=== PATIENT | female | born 1945 | race Caucasian/White ===

== ENCOUNTER → 2016-10-18 | Outpatient (CLI) | payer MEDICARE, BC ==
[2016-10-18 13:00] LABS: Basophils # (A) 0.1 k/uL (0-0.2); Basophils % (A) 1 %; CH 32.8; CHCM 33.1; Eosinophils # (A) 0.3 k/uL (0-0.7); Eosinophils % (A) 4 %; HCT 29.9 % (34.0-46.0); HDW 2.06; HGB 9.6 gm/dL (11.4-16.0); Luc # (Auto) 0.17; Luc % (Auto) 2; Lymphocytes # (A) 0.8 k/uL (1.0-4.8); Lymphocytes % (A) 11 %; MCH 32.2 pg (25.0-35.0); MCHC 32.2 g/dL (31.0-37.0); MCV 99.8 fL (80.0-100.0); Mean Platelet Volume 7.5; Monocytes # (A) 0.6 k/uL (0-1.0); Monocytes % (A) 9 %; Neutrophils # (A) 5.4 k/uL (1.3-7.7); Neutrophils % (A) 73 %; RBC 2.99 m/uL (3.80-5.40); RDW 13.6 % (11.5-15.5); WBC 7.3 k/uL (3.8-10.6); WBC (Perox) 8.05
[2016-10-18 13:04] LABS: Amorphous Sediment,Urine Few /hpf; Appearance,Urine Turbid (Clear); Bacteria,Urine Rare /hpf; Bilirubin,Urine Negative (Negative); Glucose,Urine (UA) Negative (Negative); Ketones,Urine Negative (Negative); Leukocyte Esterase,Urine Moderate (Negative); Mucus,Urine Many /hpf; Nitrite,Urine Negative (Negative); PH, Urine 5.5 (5.0-8.0); Particle Count 26119; Protein,Urine Trace (Negative); Specific Gravity,Urine 1.007 (1.001-1.035); Squamous Epithelial Cell,Urine 4 /hpf (0-4); UA Billing (MACRO vs. MICRO) MICRO; Urobilinogen,Urine <2.0 mg/dL (<2.0); WBC,Urine 10 /hpf (0-5)
[2016-10-18 13:11] LABS: Calcium 10.2 mg/dL (8.4-10.2)
== END | disposition home or self-care (01) ==
LOC: LABWHC1 12:32
PROVIDERS: ATTEND Internal Medicine Nephrology
DX: N18.3 Chronic kidney disease, stage 3 (moderate) (principal); R60.9 Edema, unspecified
CPT/HCPCS: 36415; 80048; 81001; 85025; 87086

== ENCOUNTER → 2017-02-18 | Outpatient (CLI) | payer MEDICARE, BC ==
[2017-02-18 14:14] LABS: Basophils % (A) 1 %; CH 32.4; Eosinophils # (A) 0.3 k/uL (0-0.7); Eosinophils % (A) 6 %; HCT 30.7 % (34.0-46.0); HDW 1.93; HGB 9.7 gm/dL (11.4-16.0); Luc # (Auto) 0.17; Luc % (Auto) 4; Lymphocytes # (A) 0.9 k/uL (1.0-4.8); Lymphocytes % (A) 20 %; MCHC 31.4 g/dL (31.0-37.0); MCV 101.9 fL (80.0-100.0); Macrocytosis Slight; Mean Platelet Volume 6.6; Monocytes # (A) 0.4 k/uL (0-1.0); Monocytes % (A) 10 %; Neutrophils # (A) 2.6 k/uL (1.3-7.7); Neutrophils % (A) 60 %; RBC 3.02 m/uL (3.80-5.40); RDW 14.3 % (11.5-15.5); WBC 4.4 k/uL (3.8-10.6); WBC (Perox) 4.82
[2017-02-18 14:15] LABS: Calcium 9.8 mg/dL (8.4-10.2); Magnesium 2.1 mg/dL (1.6-2.3); Phosphorous 4.7 mg/dL (2.5-4.5); Potassium 4.7 mmol/L (3.5-5.1)
[2017-02-18 14:24] LABS: % Iron Saturation 25.7 % (20-50)
[2017-02-18 19:04] LABS: Creatinine,Urine Random 33.4 mg/dL
== END | disposition home or self-care (01) ==
LOC: LABWHC1 11:31
PROVIDERS: ATTEND Internal Medicine Nephrology
DX: I12.9 Hypertensive chronic kidney disease with stage 1 through stage 4 chronic kidney disease, or unspecified chronic kidney disease (principal); N18.3 Chronic kidney disease, stage 3 (moderate); D64.9 Anemia, unspecified; E55.9 Vitamin D deficiency, unspecified
CPT/HCPCS: 36415; 80069; 82306; 82570; 82728; 83540; 83550; 83735; 83970; 84156; 85025

== ENCOUNTER 2017-02-23 13:22 | Inpatient (IN) | payer MEDICARE, BC ==
[2017-02-23] MEDS ORDERED: SODIUM CHLORIDE 0.9% 1,000 ML IV STA (13:39)
[2017-02-23] MEDS ORDERED: ONDANSETRON 4 MG/2 ML VIAL IVP STA (13:39)
[2017-02-23] MEDS ORDERED: HYDROmorphone 1 MG/ML 1 ML SYRINGE IVP STA (14:02)
--- NOTE | 2017-02-23 14:06 | ED ---
GI Bleed HPI - General Source: patient, RN notes reviewed Mode of arrival: wheelchair Limitations: no limitations <Chloe Neff - Last Filed: 02/23/17 16:33> <Jose Henson - Last Filed: 02/23/17 18:15> - General Chief complaint: GI Bleed Stated complaint: Vomiting Time Seen by Provider: 02/23/17 13:36 - History of Present Illness Initial comments: Patient is a 71-year-old female presents emergency room for evaluation of weakness and vomiting blood. Patient states she was in [place] this past weekend. Patient states she went to a restaurant where she had pasta. Patient states shortly after she began developing abdominal discomfort. Patient states all day yesterday she was vomiting up coffee ground emesis. Patient states they drove home last night. Patient states today she is no longer nauseous but is still continuing to experience abdominal discomfort. Patient states she also feels very weak and cold. Patient does state that she has been passing dark tarry stool but she does take iron pills. Patient denies any pain while urinating. Patient denies any blood in urine. Patient states she's been developing bilateral flank pain over the past few days that is worse today. Patient denies headache or dizziness. Patient denies chest pain or shortness of breath. (Chloe Neff) - Related Data Home Medications Medication Instructions Recorded Confirmed ALPRAZolam [ALPRAZolam] 0.125 mg PO Q8HR PRN 03/01/14 02/23/17 Aspirin 81 mg PO DAILY 03/01/14 02/23/17 FLUoxetine HCL [FLUoxetine HCL] 40 mg PO DAILY 03/01/14 02/23/17 Furosemide [Furosemide] 20 mg PO DAILY 03/01/14 02/23/17 Atorvastatin [Lipitor] 10 mg PO HS 02/23/17 02/23/17 Felodipine ER [Plendil] 10 mg PO DAILY 02/23/17 02/23/17 Metoprolol Tartrate [Lopressor] 50 mg PO BID 02/23/17 02/23/17 Allergies Allergy/AdvReac Type Severity Reaction Status Date / Time celecoxib [From Celebrex] Allergy Rash/Hives Verified 02/23/17 13:43 nitrofurantoin Allergy Swelling Verified 02/23/17 13:43 [From Macrobid] nitrofurantoin Allergy Swelling Verified 02/23/17 13:43 macrocrystalline [From Macrobid] sulfamethoxazole Allergy Swelling Verified 02/23/17 13:43 [From Bactrim] trimethoprim [From Bactrim] Allergy Swelling Verified 02/23/17 13:43 Review of Systems ROS Other: All systems not noted in ROS Statement are negative. <Chloe Neff - Last Filed: 02/23/17 16:33> ROS Other: All systems not noted in ROS Statement are negative. <Jose Henson - Last Filed: 02/23/17 18:15> ROS Statement: Those systems with pertinent positive or pertinent negative responses have been documented in the HPI. Past Medical History Past Medical History: Hypertension, Renal Disease Additional Past Medical History / Comment(s): renal failure History of Any Multi-Drug Resistant Organisms: None Reported Past Surgical History: Orthopedic Surgery, Tonsillectomy, Tubal Ligation Additional Past Surgical History / Comment(s): removal ovarybilateral cararact removal with lens implantcervical spinal fusion Past Psychological History: Anxiety Smoking Status: Never smoker Past Alcohol Use History: Occasional Past Drug Use History: None Reported <Chloe Neff - Last Filed: 02/23/17 16:33> General Exam Limitations: no limitations General appearance: alert, in no apparent distress Head exam: Present: atraumatic, normocephalic, normal inspection Eye exam: Present: normal appearance, PERRL, EOMI Pupils: Present: normal accommodation ENT exam: Present: normal exam Neck exam: Present: normal inspection Respiratory exam: Present: normal lung sounds bilaterally. Absent: respiratory distress Cardiovascular Exam: Present: regular rate, normal rhythm, normal heart sounds GI/Abdominal exam: Present: soft, normal bowel sounds. Absent: distended, tenderness, guarding, rebound, rigid Rectal exam: Present: normal inspection, heme (+) stool, black stool Extremities exam: Present: normal inspection Back exam: Present: normal inspection Neurological exam: Present: alert, oriented X3, CN II-XII intact Psychiatric exam: Present: normal affect, normal mood Skin exam: Present: warm, dry, intact, normal color. Absent: rash <Chloe Neff - Last Filed: 02/23/17 16:33> <Jose Henson - Last Filed: 02/23/17 18:15> - General Exam Comments Initial Comments: laying in exam room, pale, no acute distress. (Chloe Neff) Medical Decision Making - Lab Data Result diagrams: 02/23/17 14:15 02/23/17 14:15 - Radiology Data Radiology results: report reviewed, image reviewed <Chloe Neff - Last Filed: 02/23/17 16:33> - Lab Data Result diagrams: 02/23/17 14:15 02/23/17 14:15 <Jose Henson - Last Filed: 02/23/17 18:15> - Medical Decision Making Medical decision-making. The patient is here because she's feeling weak. She' s also had dark stool and coffee ground type material in the vomitus. Patient appears pale. Just 5 days ago her hemoglobin was 9.7 today. Hemoglobin is 5.9 with a hematocrit of 17.5. Patient also has history of chronic renal failure. Stool was guaiac positive. Lungs are clear heart normal murmur, abdomen benign deep palpation no organomegaly. No history of intestinal pathologies such as IBS, Crohn's, ulcerative colitis or diverticulitis. She has had GI workups which were been negative in the past. BUN is elevated 109 with a creatinine 1.7. GFR 36. The patient be rehydrated and she'll receive 2 units of packed RBCs. I discussed the situation with her son-in-law. The patient be admitted to Dr. Freeman on-call for Dr. Baez . The case is also discussed with ICU frothing machine operator Dr. Rutledge. GI consult from Dr. Cabrales has been requested. Dr. Henson (Jose Henson) - Lab Data Lab Results 02/23/17 02/23/17 02/23/17 Range/Units 14:15 14:15 14:15 WBC (3.8-10.6) k/uL RBC (3.80-5.40) m/uL Hgb (11.4-16.0) gm/dL Hct (34.0-46.0) % MCV (80.0-100.0) fL MCH (25.0-35.0) pg MCHC (31.0-37.0) g/dL RDW (11.5-15.5) % Plt Count (150-450) k/uL Neutrophils % % Lymphocytes % % Monocytes % % Eosinophils % % Basophils % % Neutrophils # (1.3-7.7) k/uL Lymphocytes # (1.0-4.8) k/uL Monocytes # (0-1.0) k/uL Eosinophils # (0-0.7) k/uL Basophils # (0-0.2) k/uL PT 10.3 (9.0-12.0) sec INR 1.0 (<1.1) APTT 17.7 L (22.0-30.0) sec Sodium 136 L (137-145) mmol/L Potassium 4.2 (3.5-5.1) mmol/L Chloride 100 (98-107) mmol/L Carbon Dioxide 24 (22-30) mmol/L Anion Gap 12 mmol/L BUN 109 H* (7-17) mg/dL Creatinine 1.70 H (0.52-1.04) mg/dL Est GFR (MDRD) Af Amer 36 (>60 ml/min/1.73 sqM) Est GFR (MDRD) Non-Af 29 (>60 ml/min/1.73 sqM) Glucose 121 H (74-99) mg/dL Plasma Lactic Acid Omar (0.7-2.0) mmol/L Calcium 9.5 (8.4-10.2) mg/dL Total Bilirubin 0.3 (0.2-1.3) mg/dL AST 25 (14-36) U/L ALT 24 (9-52) U/L Alkaline Phosphatase 43 (38-126) U/L Total Creatine Kinase <20 L (30-135) U/L CK-MB (CK-2) <0.2 (0.0-2.4) ng/mL CK-MB (CK-2) Rel Index Troponin I <0.012 (0.000-0.034) ng/mL Total Protein 6.0 L (6.3-8.2) g/dL Albumin 3.4 L (3.5-5.0) g/dL Amylase 114 H (30-110) U/L Lipase 422 H (23-300) U/L Stool Occult Blood (Negative) Blood Type Blood Type Recheck Antibody Screen Crossmatch Spec Expiration Date 02/23/17 02/23/17 02/23/17 Range/Units 14:15 14:15 14:15 WBC 5.2 (3.8-10.6) k/uL RBC 1.78 L (3.80-5.40) m/uL Hgb 5.9 L* D (11.4-16.0) gm/dL Hct 17.5 L* (34.0-46.0) % MCV 98.3 (80.0-100.0) fL MCH 33.0 (25.0-35.0) pg MCHC 33.5 (31.0-37.0) g/dL RDW 14.6 (11.5-15.5) % Plt Count 288 (150-450) k/uL Neutrophils % 70 % Lymphocytes % 17 % Monocytes % 7 % Eosinophils % 3 % Basophils % 1 % Neutrophils # 3.6 (1.3-7.7) k/uL Lymphocytes # 0.9 L (1.0-4.8) k/uL Monocytes # 0.4 (0-1.0) k/uL Eosinophils # 0.2 (0-0.7) k/uL Basophils # 0.0 (0-0.2) k/uL PT (9.0-12.0) sec INR (<1.1) APTT (22.0-30.0) sec Sodium (137-145) mmol/L Potassium (3.5-5.1) mmol/L Chloride (98-107) mmol/L Carbon Dioxide (22-30) mmol/L Anion Gap mmol/L BUN (7-17) mg/dL Creatinine (0.52-1.04) mg/dL Est GFR (MDRD) Af Amer (>60 ml/min/1.73 sqM) Est GFR (MDRD) Non-Af (>60 ml/min/1.73 sqM) Glucose (74-99) mg/dL Plasma Lactic Acid Omar 0.9 (0.7-2.0) mmol/L Calcium (8.4-10.2) mg/dL Total Bilirubin (0.2-1.3) mg/dL AST (14-36) U/L ALT (9-52) U/L Alkaline Phosphatase (38-126) U/L Total Creatine Kinase (30-135) U/L CK-MB (CK-2) (0.0-2.4) ng/mL CK-MB (CK-2) Rel Index Troponin I (0.000-0.034) ng/mL Total Protein (6.3-8.2) g/dL Albumin (3.5-5.0) g/dL Amylase (30-110) U/L Lipase (23-300) U/L Stool Occult Blood Positive H (Negative) Blood Type Blood Type Recheck Antibody Screen Crossmatch Spec Expiration Date 02/23/17 Range/Units 15:00 WBC (3.8-10.6) k/uL RBC (3.80-5.40) m/uL Hgb (11.4-16.0) gm/dL Hct (34.0-46.0) % MCV (80.0-100.0) fL MCH (25.0-35.0) pg MCHC (31.0-37.0) g/dL RDW (11.5-15.5) % Plt Count (150-450) k/uL Neutrophils % % Lymphocytes % % Monocytes % % Eosinophils % % Basophils % % Neutrophils # (1.3-7.7) k/uL Lymphocytes # (1.0-4.8) k/uL Monocytes # (0-1.0) k/uL Eosinophils # (0-0.7) k/uL Basophils # (0-0.2) k/uL PT (9.0-12.0) sec INR (<1.1) APTT (22.0-30.0) sec Sodium (137-145) mmol/L Potassium (3.5-5.1) mmol/L Chloride (98-107) mmol/L Carbon Dioxide (22-30) mmol/L Anion Gap mmol/L BUN (7-17) mg/dL Creatinine (0.52-1.04) mg/dL Est GFR (MDRD) Af Amer (>60 ml/min/1.73 sqM) Est GFR (MDRD) Non-Af (>60 ml/min/1.73 sqM) Glucose (74-99) mg/dL Plasma Lactic Acid Omar (0.7-2.0) mmol/L Calcium (8.4-10.2) mg/dL Total Bilirubin (0.2-1.3) mg/dL AST (14-36) U/L ALT (9-52) U/L Alkaline Phosphatase (38-126) U/L Total Creatine Kinase (30-135) U/L CK-MB (CK-2) (0.0-2.4) ng/mL CK-MB (CK-2) Rel Index Troponin I (0.000-0.034) ng/mL Total Protein (6.3-8.2) g/dL Albumin (3.5-5.0) g/dL Amylase (30-110) U/L Lipase (23-300) U/L Stool Occult Blood (Negative) Blood Type O Positive Blood Type Recheck No Antibody Screen NEGATIVE Crossmatch See Detail Spec Expiration Date 02/26/2017 - 229902/23/17 15:59 Normal sinus rhythm, ventricular rate 77 bpm, MS interval 156 ms, QRS duration 94 ms, QT/QTC 414/468 ms (Chloe Neff) Disposition Decision Date: 02/23/17 <Chloe Neff - Last Filed: 02/23/17 16:33> <Jose Henson - Last Filed: 02/23/17 18:15> Clinical Impression: Anemia, Dehydration, CKD (chronic kidney disease) Disposition: ADMITTED IP TO THIS [facility] Condition: Serious
[2017-02-23 14:39] LABS: Basophils % (A) 1 %; CH 32.7; CHCM 33.4; Eosinophils # (A) 0.2 k/uL (0-0.7); Eosinophils % (A) 3 %; HDW 2.04; Luc # (Auto) 0.13; Luc % (Auto) 3; Lymphocytes # (A) 0.9 k/uL (1.0-4.8); Lymphocytes % (A) 17 %; MCHC 33.5 g/dL (31.0-37.0); MCV 98.3 fL (80.0-100.0); Mean Platelet Volume 6.6; Monocytes # (A) 0.4 k/uL (0-1.0); Monocytes % (A) 7 %; Neutrophils # (A) 3.6 k/uL (1.3-7.7); Neutrophils % (A) 70 %; RBC 1.78 m/uL (3.80-5.40); RDW 14.6 % (11.5-15.5); WBC 5.2 k/uL (3.8-10.6); WBC (Perox) 5.28
[2017-02-23 14:48] LABS: HGB 5.9 gm/dL (11.4-16.0)
[2017-02-23 14:49] LABS: HCT 17.5 % (34.0-46.0)
[2017-02-23 14:51] LABS: Calcium 9.5 mg/dL (8.4-10.2); Potassium 4.2 mmol/L (3.5-5.1); Total Bilirubin 0.3 mg/dL (0.2-1.3)
[2017-02-23 15:03] LABS: Creatine Kinase <20 U/L (30-135)
[2017-02-23] MEDS ORDERED: SODIUM CHLORIDE 0.9% 1,000 ML IV ONE (15:03)
[2017-02-23 15:09] LABS: Partial Thromboplastin Time 17.7 sec (22.0-30.0); Prothrombin Time 10.3 sec (9.0-12.0)
[2017-02-23 15:16] LABS: Creatine Kinase MB <0.2 ng/mL (0.0-2.4); Troponin I <0.012 ng/mL (0.000-0.034)
[2017-02-23] MEDS ORDERED: NALOXONE 0.4 MG/ML 1 ML VIAL IV PRN (15:17)
[2017-02-23] MEDS ORDERED: HYDROmorphone 1 MG/ML 1 ML SYRINGE IVP PRN (15:17)
--- NOTE | 2017-02-23 15:43 | XR ---
EXAMINATION TYPE: XR abdomen 2V DATE OF EXAM: 02/23/2017 3:32 PM COMPARISON: NONE HISTORY: Abdominal pain TECHNIQUE: 2 views FINDINGS: There is no sign of intestinal obstruction or pneumoperitoneum. Fecal pattern is normal. Reshma ng bases are clear. There are no pathologic ossifications over the kidneys. IMPRESSION: Nonacute abdomen.
[2017-02-23] MEDS: SODIUM CHLORIDE 0.9% 1,000 ML IV SCH (16:00)
[2017-02-23 20:16] VITALS: BMI 21.2
[2017-02-23] MEDS: PANTOPRAZOLE 40 MG/10 ML VIAL IVP SCH (21:05)
[2017-02-23 21:37] LABS: Basophils % (A) 1 %; CH 31.4; CHCM 34.4; Eosinophils # (A) 0.1 k/uL (0-0.7); Eosinophils % (A) 2 %; HCT 25.1 % (34.0-46.0); HDW 2.65; Luc % (Auto) 3; Lymphocytes # (A) 1.5 k/uL (1.0-4.8); Lymphocytes % (A) 24 %; MCH 31.5 pg (25.0-35.0); MCHC 34.3 g/dL (31.0-37.0); Mean Platelet Volume 7.4; Monocytes # (A) 0.6 k/uL (0-1.0); Monocytes % (A) 9 %; Neutrophils # (A) 3.7 k/uL (1.3-7.7); Neutrophils % (A) 61 %; RBC 2.73 m/uL (3.80-5.40); RDW 15.5 % (11.5-15.5); WBC 6.1 k/uL (3.8-10.6); WBC (Perox) 5.83
[2017-02-23 21:39] LABS: HGB 8.6 gm/dL (11.4-16.0); MCV 91.9 fL (80.0-100.0)
[2017-02-23] MEDS: ALPRAZolam 0.5 MG TAB PO PRN (23:04)
[2017-02-24 04:51] LABS: INR 1.1 (<1.1); Prothrombin Time 10.7 sec (9.0-12.0)
[2017-02-24 04:56] LABS: Calcium 8.6 mg/dL (8.4-10.2); Magnesium 2.1 mg/dL (1.6-2.3); Phosphorous 4.1 mg/dL (2.5-4.5); Potassium 3.7 mmol/L (3.5-5.1)
[2017-02-24] MEDS ORDERED: Potassium Replacement Protocol 1 EACH MISC MISCELLANE PRN (05:15)
[2017-02-24] MEDS: POTASSIUM CHLORIDE 10 MEQ, LIDOCAINE 2% INJ 10 MG in SODIUM CHLORIDE 0.9% 100 ML IV SCH ×2 (06:14→08:30)
[2017-02-24] MEDS: SODIUM CHLORIDE 0.9% 1,000 ML IV SCH ×3 (06:14→21:11)
[2017-02-24 06:15] LABS: Anisocytosis Slight; Basophils % (A) 1 %; CH 30.9; Eosinophils # (A) 0.1 k/uL (0-0.7); Eosinophils % (A) 3 %; HCT 24.8 % (34.0-46.0); HDW 2.78; HGB 8.2 gm/dL (11.4-16.0); Luc # (Auto) 0.14; Luc % (Auto) 3; Lymphocytes # (A) 1.4 k/uL (1.0-4.8); Lymphocytes % (A) 30 %; MCH 31.1 pg (25.0-35.0); MCHC 32.9 g/dL (31.0-37.0); MCV 94.4 fL (80.0-100.0); Mean Platelet Volume 6.8; Monocytes # (A) 0.4 k/uL (0-1.0); Monocytes % (A) 10 %; Neutrophils # (A) 2.5 k/uL (1.3-7.7); Neutrophils % (A) 54 %; RBC 2.63 m/uL (3.80-5.40); RDW 16.1 % (11.5-15.5); WBC 4.6 k/uL (3.8-10.6); WBC (Perox) 4.71
[2017-02-24] MEDS: PANTOPRAZOLE 40 MG/10 ML VIAL IVP SCH ×2 (08:35→20:34)
[2017-02-24] MEDS ORDERED: PANTOPRAZOLE 40 MG/10 ML VIAL IV SCH (09:00)
[2017-02-24] MEDS ORDERED: ONDANSETRON 4 MG/2 ML VIAL IVP PRN (09:29)
--- NOTE | 2017-02-24 09:31 | P.CNPUL ---
History of Present Illness Consult date: 02/24/17 Chief complaint: GIB History of present illness: 71-year-old female patient, presented to the hospital because of GI bleeding. The patient was attending her granddaughter's graduation and his [place] and after dinner she started having increased nausea and coffee-ground emesis on multiple occasions. The patient managed to get back to [place] and she was hospitalized yesterday with a profoundly low hemoglobin of 5.9. She was given a total of 2 units of packed RBC and subsequent hemoglobin from today is 8.2. She is currently in the intensive care unit. She was given IV fluids and creatinine came from a baseline of 1.7 down to 1.3. This patient has history of iron deficiency. She hasn't been investigated in the past with colonoscopy and she was found to have mild diverticulosis and the colonoscopy was done in 2013. She has not had any EGD that she can recall. No reported history of aspirin or nonsteroidal anti-inflammatory medication intake. The patient has stage III chronic renal failure that she avoids taking nonsteroidal anti-inflammatory medications. No chronic liver disease. She drinks approximately 15 drinks on a weekly basis including a combination of wine and vodka. She is producing adequate amount of urine output. No nausea this morning. No abdominal pain. She was expressing some cramping and epigastric area. No history of any esophageal tear. The lipase was 422. The amylase was 114. The rest of the liver function tests were within normal limits. The stool for occult blood was slightly positive. She is resting comfortably in bed. She is hemodynamically stable at this point. Afebrile. Coagulation profile is also within normal limits. Review of Systems A 12 point review of system was done and the positive findings were mentioned above in history of present illness. No change in mental status. No respiratory distress. No other complaints other than thinks most above in the history of present illness. All systems: negative Constitutional: Denies chills, Denies fever Eyes: denies blurred vision, denies pain Ears, nose, mouth and throat: Denies headache, Denies sore throat Cardiovascular: Denies chest pain, Denies shortness of breath Respiratory: Denies cough Gastrointestinal: Reports coffee ground emesis, Reports nausea, Reports vomiting Genitourinary: Denies dysuria, Denies hematuria Musculoskeletal: Denies myalgias Integumentary: Denies pruritus, Denies rash Neurological: Denies numbness, Denies weakness Psychiatric: Denies anxiety, Denies depression Endocrine: Denies fatigue, Denies weight change Past Medical History Past Medical History: Eye Disorder, Hypertension, Renal Disease Additional Past Medical History / Comment(s): Chronic anemia, iron deficiency, bilateral cataract repair, diverticular disease, CRF stage 3, hypertension, hyperlipidemia, generalized anxiety disorder History of Any Multi-Drug Resistant Organisms: None Reported Past Surgical History: Orthopedic Surgery, Tonsillectomy, Tubal Ligation Additional Past Surgical History / Comment(s): removal ovary, bilateral cararact removal with lens implant; cervical spinal fusion Past Anesthesia/Blood Transfusion Reactions: No Reported Reaction Past Psychological History: Anxiety Additional Psychological History / Comment(s): takes prozac and xanax for anxiety Smoking Status: Never smoker Past Alcohol Use History: Occasional Additional Past Alcohol Use History / Comment(s): one drink on occasion during week, several on occasions on the weekend, not consistent. Past Drug Use History: None Reported - Past Family History Mother Family Medical History: Osteoarthritis (OA) Sister(s) Family Medical History: Cancer Additional Family Medical History / Comment(s): breast cancer Medications and Allergies Home Medications Medication Instructions Recorded Confirmed Type ALPRAZolam [ALPRAZolam] 0.125 mg PO Q8HR PRN 03/01/14 02/23/17 History Aspirin 81 mg PO DAILY 03/01/14 02/23/17 History FLUoxetine HCL [FLUoxetine HCL] 40 mg PO DAILY 03/01/14 02/23/17 History Furosemide [Furosemide] 20 mg PO DAILY 03/01/14 02/23/17 History Atorvastatin [Lipitor] 10 mg PO HS 02/23/17 02/23/17 History Felodipine ER [Plendil] 10 mg PO DAILY 02/23/17 02/23/17 History Metoprolol Tartrate [Lopressor] 50 mg PO BID 02/23/17 02/23/17 History Allergies Allergy/AdvReac Type Severity Reaction Status Date / Time celecoxib [From Celebrex] Allergy Rash/Hives Verified 02/23/17 13:43 nitrofurantoin Allergy Swelling Verified 02/23/17 13:43 [From Macrobid] nitrofurantoin Allergy Swelling Verified 02/23/17 13:43 macrocrystalline [From Macrobid] sulfamethoxazole Allergy Swelling Verified 02/23/17 13:43 [From Bactrim] trimethoprim [From Bactrim] Allergy Swelling Verified 02/23/17 13:43 Physical Exam Vitals: Vital Signs Temp Pulse Pulse Resp BP BP Pulse Ox 02/24/17 08:00 98.4 F 86 16 131/64 96 02/24/17 07:00 85 12 116/59 96 02/24/17 06:00 87 14 119/61 96 02/24/17 05:00 83 21 126/64 96 02/24/17 04:00 98.0 F 82 12 128/69 97 02/24/17 03:00 79 16 123/63 95 02/24/17 02:00 84 12 113/59 97 02/24/17 01:00 84 13 112/56 96 02/24/17 00:10 86 16 112/57 95 02/24/17 00:00 98.0 F 87 12 117/52 95 02/23/17 23:00 87 18 127/63 98 02/23/17 22:00 83 22 126/62 97 02/23/17 21:00 82 19 120/58 99 02/23/17 20:39 98.0 F 82 16 119/58 100 02/23/17 20:10 83 18 123/60 99 02/23/17 20:00 98.1 F 85 23 119/56 100 02/23/17 19:50 87 26 H 117/56 99 02/23/17 19:40 82 17 117/60 100 02/23/17 19:34 98.1 F 84 16 117/56 100 02/23/17 19:30 84 34 H 113/55 99 02/23/17 19:20 83 20 113/56 98 02/23/17 19:10 82 29 H 116/61 99 02/23/17 19:04 97.9 F 97 16 116/61 97 02/23/17 19:00 97.9 F 81 18 112/59 98 02/23/17 18:54 98.0 F 83 17 112/59 98 02/23/17 18:50 83 16 135/65 98 02/23/17 18:41 98.0 F 86 20 135/65 99 02/23/17 18:10 98.2 F 81 18 132/62 02/23/17 17:23 98.5 F 78 18 128/58 99 02/23/17 17:10 98.5 F 79 18 120/58 02/23/17 17:05 98.0 F 83 16 123/60 100 02/23/17 16:45 98.6 F 78 18 128/59 02/23/17 16:15 98.4 F 77 18 133/59 Intake and Output 02/23/17 02/24/17 02/24/17 22:59 06:59 14:59 Intake Total 1710 800 400 Output Total 1400 600 Balance 310 200 400 Intake: Intake, IV Titration 300 800 400 Amount Potassium Chloride 10 meq 200 Lidocaine 2% Inj 10 mg In Sodium Chloride 0.9% 100 ml @ 100 mls/hr IV Q1HR ROSANA Rx#:[id number] Sodium Chloride 0.9% 1, 300 800 200 000 ml @ 100 mls/hr IV . Q10H ROSANA Rx#:[id number] Oral 480 0 Blood Product 930 Rc As-1 Unit 310 [id number] Rc As-1 Unit 310 [id number] Output: Urine 1400 600 Other: Voiding Method Toilet Toilet Bedside Commode Bedside Commode # Voids 1 1 # Bowel Movements 0 0 # [place] 0 Weight 52.6 kg 52.7 kg The patient appeared well nourished and normally developed. Vital signs as documented. Head exam is unremarkable. No scleral icterus or corneal arcus noted. Neck is without jugular venous distension, thyromegaly, or carotid bruits. Carotid upstrokes are brisk bilaterally. Lungs are clear to auscultation and percussion. Cardiac exam reveals the PMI to be normally sized and situated. Rhythm is regular. First and second heart sounds normal. No murmurs, rubs or gallops. Abdominal exam reveals normal bowel sounds, no masses , no organomegaly and no aortic enlargement. Extremities are nonedematous and both femoral and pedal pulses are normal. Results - Laboratory Findings CBC and BMP: 02/24/17 03:49 02/24/17 03:49 PT/INR, D-dimer PT 10.7 sec (9.0-12.0) 02/24/17 03:49 INR 1.1 (<1.1) 02/24/17 03:49 Abnormal lab findings: Abnormal Labs 02/23/17 02/24/17 02/24/17 21:22 03:49 03:49 RBC 2.73 L 2.63 L Hgb 8.6 L D 8.2 L Hct 25.1 L 24.8 L RDW 16.1 H Chloride 109 H Carbon Dioxide 20 L BUN 68 H Creatinine 1.30 H Assessment and Plan Plan: Assessment 1 upper GI bleeding. Remote alcoholic gastritis. Rule out peptic ulcer disease. Coagulation profile is within normal limits and the patient has not had any further episodes of bleeding since yesterday. 2 profound anemia with hemoglobin of 5.9 secondary to above, improved with 2 units of packed RBC transfusion 3 acute kidney injury on top of stage III chronic renal failure, improving and the creatinine is down to 1.3 4 intravascular depletion, improved with fluid resuscitation 5 stage III chronic kidney failure 6 hypertension 7 hyperlipidemia 8 mild diverticulosis based on the previous colonoscopies thousand and 14 9 alcohol ingestion in excess of 15 drinks on a weekly basis 10 mild component of pancreatitis, without any significant abdominal pain. Liver function tests are within normal limits Plan Keep the patient nothing by mouth. Continue fluid resuscitation. IV Protonix. IV Zofran for nausea. EGD today by gastroenterology. Ultrasound of the abdomen for evaluation of pancreatitis. Monitor lipase and amylase. Monitor hemoglobin. We'll continue to follow.
[2017-02-24 10:42] LABS: Appearance,Urine Clear (Clear); Bacteria,Urine Rare /hpf; Bilirubin,Urine Negative (Negative); Glucose,Urine (UA) Negative (Negative); Ketones,Urine Trace (Negative); Leukocyte Esterase,Urine Moderate (Negative); Mucus,Urine Rare /hpf; Nitrite,Urine Negative (Negative); Particle Count 1667; Protein,Urine Negative (Negative); RBC,Urine <1 /hpf (0-5); Specific Gravity,Urine 1.008 (1.001-1.035); Squamous Epithelial Cell,Urine 1 /hpf (0-4); UA Billing (MACRO vs. MICRO) MICRO; Urobilinogen,Urine <2.0 mg/dL (<2.0); WBC,Urine 15 /hpf (0-5)
[2017-02-24 11:23] LABS: Amylase 105 U/L (30-110)
--- NOTE | 2017-02-24 11:59 | US ---
EXAMINATION TYPE: US abdomen complete DATE OF EXAM: 02/24/2017 10:52 AM COMPARISON: NONE CLINICAL HISTORY: 71-year-old female with pancreatitis. Nausea/vomiting, CKD. TECHNIQUE: Multiple sonographic images of the abdomen were obtained. FINDINGS: GLEASON GEAR GENERATOR NOTES: Technical limitations due to large amount of overlying bowel content Liver Length: 9.8 cm Gallbladder Wall: 0.3 cm CBD: 0.2 cm Spleen: 7.8 cm Right Kidney: 9.9 x 4.9 x 3.8 cm Left Kidney: 10.5 x 4.6 x 4.2 cm Pancreas: limited evaluation due to overlying bowel, tail obscured. The pancreatic body appears hypo echoic and heterogeneous. Liver: Limited intercostal views show no gross abnormality. Gallbladder: There is an echogenic is 4 mm focus seen at the gallbladder neck region when the patien t is supine. There is no abnormal gallbladder distention, wall thickening, or pericholecystic fluid. Evidence for sonographic Soto's sign: no CBD: appears wnl Spleen: visualized portions appear wnl Right Kidney: No hydronephrosis. 1.1 cm cyst in the upper pole. Left Kidney: No hydronephrosis. 7 mm hypoechoic area at the lower pole. Suspected cyst with internal echoes likely artifactual. Upper IVC: wnl Abd Aorta: Atherosclerotic calcifications. IMPRESSION: 1. Visualized portions of the pancreatic body appear hypoechoic and heterogeneous. This may relate to inflammatory changes of the patient's reported pancreatitis. After successful management, recommend follow-up CT to exclude a pancreatic mass. 2. A 4 mm echogenic focus at the gallbladder neck suspected to represent a calculus. No ancillary fin dings of acute cholecystitis at this time. Follow-up if new right upper quadrant pain develops.
--- NOTE | 2017-02-24 12:57 | P.HPIM ---
History of Present Illness H&P Date: 02/24/17 Chief Complaint: Acute blood loss anemia/GI bleed This is a 71-year-old female one of Dr. Baez with a previous medical history significant for hypertension and hypertensive cardiovascular disease with left ventricular hypertrophy, history of chronic kidney disease stage III, chronic iron deficiency anemia, osteoporosis, osteoarthritis, hypoglycemia, has been under the care of herself [place] as well as nephrology at [facility], patient went to attend a graduation alliance party for her granddaughter in [place], [place], patient went for dinner and after that she developed to have a significant amount pain associated with nausea and vomiting she had 2 episode of coffee-ground emesis, she managed to get back to [place] and she stated hold for another few hours before she came to the ER last night where she was found to have a hemoglobin of 5.9, patient was admitted to the intensive care unit, she was started on 3 units of packed red blood cells, her hemoglobin currently is a benign, she was seen by Dr. Deras, she will be seen in consultation by [facility] for EGD. Review of Systems Constitutional: Reports fatigue, Reports malaise, Reports weakness, Reports weight loss, Denies chills, Denies chronic headaches, Denies chronic pain, Denies fever, Denies lethargy Eyes: denies blurred vision, denies bulging eye, denies decreased vision Ears: deny: decreased hearing Ears, nose, mouth and throat: Denies dysphagia, Denies neck lump, Denies swelling in throat, Denies sore throat Cardiovascular: Reports dyspnea on exertion, Reports high blood pressure, Denies chest pain, Denies irregular heart beat, Denies paroxysmal nocturnal dyspnea, Denies phlebitis, Denies rapid heart beat, Denies shortness of breath, Denies syncope Respiratory: Denies congestion, Denies cough, Denies cough with sputum, Denies home oxygen, Denies sleep apnea, Denies snoring, Denies wheezing Gastrointestinal: Reports abdominal pain, Reports coffee ground emesis, Reports dyspepsia, Reports heartburn, Reports indigestion, Reports loss of appetite, Reports melena, Reports nausea, Reports vomiting, Denies belching, Denies BRBPR , Denies change in bowel habits, Denies jaundice, Denies lactose intolerance Menstruation: Reports postmenopausal Musculoskeletal: Denies myalgias Musculoskeletal: absent: ankle pain, ankle stiffness, ankle swelling, elbow pain , elbow stiffness, elbow swelling, foot pain, foot stiffness, foot swelling, hand pain, hand stiffness, hand swelling, hip pain, hip stiffness, hip swelling , knee pain, knee stiffness, knee swelling, shoulder pain, shoulder stiffness, shoulder swelling, wrist pain, wrist stiffness, wrist swelling Integumentary: Denies pruritus, Denies rash Neurological: Denies numbness, Denies weakness Psychiatric: Denies anxiety, Denies depression Endocrine: Denies fatigue, Denies weight change Past Medical History Past Medical History: Eye Disorder, GI Bleed, Hyperlipidemia, Hypertension, Musculoskeletal Disorder, Osteoarthritis (OA), Renal Disease Additional Past Medical History / Comment(s): Chronic anemia, iron deficiency, chronic kidney disease stage III, diverticular disease, hyperlipidemia, osteoarthritis, osteoporosis, hypoglycemia, gout, chronic alcohol use and dependence. History of Any Multi-Drug Resistant Organisms: None Reported Past Surgical History: Orthopedic Surgery, Tonsillectomy, Tubal Ligation Additional Past Surgical History / Comment(s): removal ovary, bilateral cararact removal with lens implant; cervical spinal fusion Past Anesthesia/Blood Transfusion Reactions: No Reported Reaction Past Psychological History: Anxiety Additional Psychological History / Comment(s): takes prozac and xanax for anxiety Smoking Status: Never smoker Past Alcohol Use History: Heavy (Patient has 15 drinks on a weekly basis. Including vodka and wine.) Additional Past Alcohol Use History / Comment(s): one drink on occasion during week, several on occasions on the weekend, not consistent. Past Drug Use History: None Reported - Past Family History Mother Family Medical History: Osteoarthritis (OA) (Mother at age of 88 had a history of osteoarthritis .) Sister(s) Family Medical History: Cancer (Patient has a sister who is a survivor of breast cancer and a half-sister with no major medical problems.) Additional Family Medical History / Comment(s): breast cancer Father Family Medical History: No Reported History (Father at age of 92 from old age and he was a out of the [facility]) Brother(s) Family Medical History: Osteoarthritis (OA) (Patient has 2 brothers one of them in the ECF from severe osteoarthritis, and 2 half-brothers.) Daughter(s) Family Medical History: No Reported History (Patient has a daughter no major medical problems.) Son(s) Family Medical History: No Reported History (Patient has a son no major medical problems.) Medications and Allergies Home Medications Medication Instructions Recorded Confirmed Type ALPRAZolam [ALPRAZolam] 0.125 mg PO Q8HR PRN 03/01/14 02/23/17 History Aspirin 81 mg PO DAILY 03/01/14 02/23/17 History FLUoxetine HCL [FLUoxetine HCL] 40 mg PO DAILY 03/01/14 02/23/17 History Furosemide [Furosemide] 20 mg PO DAILY 03/01/14 02/23/17 History Atorvastatin [Lipitor] 10 mg PO HS 02/23/17 02/23/17 History Felodipine ER [Plendil] 10 mg PO DAILY 02/23/17 02/23/17 History Metoprolol Tartrate [Lopressor] 50 mg PO BID 02/23/17 02/23/17 History Ferrous Sulfate [Feosol] 325 mg PO DAILY 02/24/17 02/24/17 History Magnesium Oxide [Mag-Ox] 250 mg PO DAILY 02/24/17 02/24/17 History Allergies Allergy/AdvReac Type Severity Reaction Status Date / Time celecoxib [From Celebrex] Allergy Rash/Hives Verified 02/23/17 13:43 nitrofurantoin Allergy Swelling Verified 02/23/17 13:43 [From Macrobid] nitrofurantoin Allergy Swelling Verified 02/23/17 13:43 macrocrystalline [From Macrobid] sulfamethoxazole Allergy Swelling Verified 02/23/17 13:43 [From Bactrim] trimethoprim [From Bactrim] Allergy Swelling Verified 02/23/17 13:43 Physical Exam Vitals: Vital Signs Temp Pulse Pulse Resp BP BP Pulse Ox 02/24/17 08:00 98.4 F 86 16 131/64 96 02/24/17 07:00 85 12 116/59 96 02/24/17 06:00 87 14 119/61 96 02/24/17 05:00 83 21 126/64 96 02/24/17 04:00 98.0 F 82 12 128/69 97 02/24/17 03:00 79 16 123/63 95 02/24/17 02:00 84 12 113/59 97 02/24/17 01:00 84 13 112/56 96 02/24/17 00:10 86 16 112/57 95 02/24/17 00:00 98.0 F 87 12 117/52 95 02/23/17 23:00 87 18 127/63 98 02/23/17 22:00 83 22 126/62 97 02/23/17 21:00 82 19 120/58 99 02/23/17 20:39 98.0 F 82 16 119/58 100 02/23/17 20:10 83 18 123/60 99 02/23/17 20:00 98.1 F 85 23 119/56 100 02/23/17 19:50 87 26 H 117/56 99 02/23/17 19:40 82 17 117/60 100 02/23/17 19:34 98.1 F 84 16 117/56 100 02/23/17 19:30 84 34 H 113/55 99 02/23/17 19:20 83 20 113/56 98 02/23/17 19:10 82 29 H 116/61 99 02/23/17 19:04 97.9 F 97 16 116/61 97 02/23/17 19:00 97.9 F 81 18 112/59 98 02/23/17 18:54 98.0 F 83 17 112/59 98 02/23/17 18:50 83 16 135/65 98 02/23/17 18:41 98.0 F 86 20 135/65 99 02/23/17 18:10 98.2 F 81 18 132/62 02/23/17 17:23 98.5 F 78 18 128/58 99 02/23/17 17:10 98.5 F 79 18 120/58 02/23/17 17:05 98.0 F 83 16 123/60 100 02/23/17 16:45 98.6 F 78 18 128/59 02/23/17 16:15 98.4 F 77 18 133/59 Intake and Output 02/23/17 02/24/17 02/24/17 22:59 06:59 14:59 Intake Total 1710 800 400 Output Total 1400 600 Balance 310 200 400 Intake: Intake, IV Titration 300 800 400 Amount Potassium Chloride 10 meq 200 Lidocaine 2% Inj 10 mg In Sodium Chloride 0.9% 100 ml @ 100 mls/hr IV Q1HR [facility] Rx#:[id number] Sodium Chloride 0.9% 1, 300 800 200 000 ml @ 100 mls/hr IV . Q10H [facility] Rx#:[id number] Oral 480 0 Blood Product 930 Rc As-1 Unit 310 [id number] Rc As-1 Unit 310 [id number] Output: Urine 1400 600 Other: Voiding Method Toilet Toilet Bedside Commode Bedside Commode # Voids 1 1 # Bowel Movements 0 0 # Em[place] 0 Weight 52.6 kg 52.7 kg - Constitutional General appearance: mild distress - EENT Eyes: anicteric sclerae, EOMI, PERRLA, no ptosis, no scleral icterus, normal appearance ENT: hearing grossly normal, normal oropharynx, no thrush Ears: bilateral: normal - Neck Neck: no lymphadenopathy, normal ROM, no stridor, no thyromegaly Carotids: bilateral: upstroke normal Thyroid: bilateral: normal size - Respiratory Respiratory: bilateral: diminished, negative: dullness, rales, rhonchi, wheezing , prolonged expiration - Cardiovascular Rhythm: regular Heart sounds: normal: S1, S2 Abnormal Heart Sounds: systolic murmur, no S3 Gallop, no S4 Gallop - Gastrointestinal General gastrointestinal: normal bowel sounds, soft, no splenomegaly, no tenderness, no umbilical hernia, no ventral hernia - Integumentary Integumentary: normal, normal turgor - Neurologic Neurologic: CNII-XII intact - Musculoskeletal Musculoskeletal: generalized weakness, strength equal bilaterally - Psychiatric Psychiatric: A&O x's 3, appropriate affect, intact judgment & insight Results CBC & Chem 7: 02/24/17 03:49 02/24/17 03:49 Labs: Abnormal Lab Results - Last 24 Hours (Table) 02/23/17 02/24/17 02/24/17 Range/Units 21:22 03:49 03:49 RBC 2.73 L 2.63 L (3.80-5.40) m/uL Hgb 8.6 L D 8.2 L (11.4-16.0) gm/dL Hct 25.1 L 24.8 L (34.0-46.0) % RDW 16.1 H (11.5-15.5) % Chloride 109 H (98-107) mmol/L Carbon Dioxide 20 L (22-30) mmol/L BUN 68 H (7-17) mg/dL Creatinine 1.30 H (0.52-1.04) mg/dL Thrombosis Risk Factor Assmnt - DVT/VTE Prophylaxis DVT/VTE Prophylaxis: Mechanical Prophylaxis ordered - Choose All That Apply Each Factor Represents 1 point: Medical pt on bed rest Each Risk Factor Represents 2 Points: Age 61-74 years Other congenital or acquired thrombophilia - If yes, enter type in comment: No Thrombosis Risk Factor Assessment Total Risk Factor Score: 3 Thrombosis Risk Factor Assessment Level: Moderate Risk Assessment and Plan Plan: Assessment and plan: 1. Acute upper GI bleed. Admit to the ICU, CBC every 6 hours, type and cross and transfuse 3 units of packed red blood cell, GI consultation for EGD, keep hemoglobin above 7, monitor the patient in the intensive care unit, keep the patient on none per mouth, continue Protonix 40 mg IV push every 12 hours. 2. Acute blood loss anemia .status post 3 units of packed red blood cell transfusion. Hemoglobin stable at 8.2. 3. Acute kidney injury on top of chronic kidney disease secondary to acute tubular necrosis due to GI bleed. Continue IV fluid resuscitation, continue blood transfusion, monitor the patient CMP magnesium or phosphorus in the next 24 hours. 4. Chronic kidney disease stage III. Stable at this time. 5. Hypertension and hypertensive cardiovascular disease. Hold BP medicine. 6. Hyperlipidemia. Continue patient on Lipitor 10 mg orally once every day. 7. History of prostate arthritis. No NSAIDs. 8. Anxiety and depressive disorder. We'll resume patient fluoxetine and Xanax as needed. 9. Iron deficiency anemia. Patient did have last colonoscopy back in 2013 showed mild diverticulosis. 10. Chronic alcohol use and dependence. EGD will be done today, abstinence from alcohol, we will monitor the patient very closely. 11. History of osteoporosis. Stable at this point in time. 12. History of hypoglycemia. Monitor the patient closely. 13. Admit to inpatient. Estimated length of stay 2 midnights. 14. Patient is a full code.
[2017-02-24] MEDS ORDERED: PROPOFOL 10 MG/ML 20 ML VIAL IV ONE (14:38)
[2017-02-24] MEDS ORDERED: IV FLUID CONTINUATION 1,000 ML IV ONE (14:39)
--- NOTE | 2017-02-24 15:17 | P.PCN ---
Date of Procedure: 02/24/17 Procedure(s) Performed: Procedure: Esophagogastroduodenoscopy and biopsy. Preoperative diagnosis: Hematemesis and anemia. Postoperative diagnosis: Small sliding hiatal hernia with no obvious mucosal tears. Antral gastritis with antral ulcer covered with white exudate not actively bleeding. Biopsies obtained from the antrum. Preparation sedation: Was provided by anesthesia. Brief clinical history: The patient is a 71-year-old female with past medical history of hypertension and hypertensive cardiovascular disease with left ventricular hypertrophy, history of chronic kidney disease stage III, chronic iron deficiency anemia, osteoporosis, osteoarthritis, hypoglycemia went to attend a graduation republican for her granddaughter in [place], [place], and had dinner following which she developed significant amount of pain associated with nausea and vomiting including 2 episodes of coffee-ground emesis. She returned to [place] and came to the ER last night where she was found to have a hemoglobin of 5.9, patient was admitted to the intensive care unit, she was started on 3 units of packed red blood cells. The details are summarized in the history and physical and dictated consultations. This evaluation is to assess for an upper GI source of bleeding. Procedure: With the patient on her left lateral decubitus position and after informed consent and adequate sedation, I passed the Olympus-GIF 160 video upper endoscope through the cricopharyngeus down the esophagus. There was a small sliding hiatal hernia but no definite mucosal tears. There was no esophagitis or complicated reflux disease. The endoscope was then passed into the stomach which was insufflated with air and inspected in detail including the retroflex view in the cardia. There was some mottling and erythema in the antrum and there was an antral ulcer covered with white exudate without any stigmata of recent or active bleeding. The ulcer measured around 2 cm in greatest dimension. Pyloric channel, duodenal bulb, post bulbar area and descending duodenum appeared healthy. All secretions encountered during this exam were either clear or bilious in color. I obtained biopsies from the antrum then the endoscope was withdrawn. The patient tolerated the procedure well. Plan: The patient was reassured. Will allow regular diet and continue Protonix. We will continue to monitor blood counts. Further plans based on her course. We will continue to follow with you with interest.
[2017-02-24 19:27] LABS: CH 31.5; CHCM 34.2; HCT 25.6 % (34.0-46.0); HDW 2.91; HGB 8.8 gm/dL (11.4-16.0); MCH 31.9 pg (25.0-35.0); MCHC 34.4 g/dL (31.0-37.0); MCV 92.9 fL (80.0-100.0); Mean Platelet Volume 6.9; RBC 2.75 m/uL (3.80-5.40); RDW 15.8 % (11.5-15.5); WBC 5.4 k/uL (3.8-10.6)
[2017-02-24] MEDS: ALPRAZolam 0.5 MG TAB PO PRN (22:09)
[2017-02-25 07:46] VITALS: RESP 16; TEMP 97.6
[2017-02-25] MEDS: PANTOPRAZOLE 40 MG/10 ML VIAL IVP SCH (08:58)
[2017-02-25] MEDS: SODIUM CHLORIDE 0.9% 1,000 ML IV SCH (08:58)
[2017-02-25] MEDS: ALPRAZolam 0.5 MG TAB PO PRN (09:06)
[2017-02-25 09:56] LABS: Basophils % (A) 0 %; CH 31.3; CHCM 33.1; Eosinophils # (A) 0.2 k/uL (0-0.7); Eosinophils % (A) 3 %; HCT 24.5 % (34.0-46.0); HDW 2.66; Luc # (Auto) 0.13; Luc % (Auto) 3; Lymphocytes # (A) 0.7 k/uL (1.0-4.8); Lymphocytes % (A) 14 %; MCH 31.4 pg (25.0-35.0); MCHC 32.9 g/dL (31.0-37.0); MCV 95.4 fL (80.0-100.0); Mean Platelet Volume 6.4; Monocytes # (A) 0.5 k/uL (0-1.0); Monocytes % (A) 9 %; Neutrophils # (A) 3.6 k/uL (1.3-7.7); Neutrophils % (A) 70 %; RBC 2.56 m/uL (3.80-5.40); RDW 15.8 % (11.5-15.5); WBC 5.2 k/uL (3.8-10.6); WBC (Perox) 5.37
--- NOTE | 2017-02-25 10:02 | P.PN ---
Subjective Principal diagnosis: GI bleed anemia Status post EGD yesterday with findings of nonbleeding antral ulcer. Feels well this time. Tolerating diet. No bleeding. Afebrile. CBC pending. Objective - Vital Signs Vital signs: Vital Signs Temp 97.6 F 02/25/17 07:00 Pulse 82 02/25/17 07:00 Resp 16 02/25/17 07:00 BP 149/73 02/25/17 07:00 Pulse Ox 99 02/25/17 07:00 Intake & Output 02/24/17 02/25/17 02/25/17 18:59 06:59 18:59 Intake Total 1500 920 Output Total 1700 500 Balance -200 420 Intake: IV 200 Intake, IV Titration 1300 200 Amount IV Fluid Continuation 1, 400 200 000 ml As IV .[facility] Rx#:[id number] Potassium Chloride 10 meq 200 Lidocaine 2% Inj 10 mg In Sodium Chloride 0.9% 100 ml @ 100 mls/hr IV Q1HR [facility] Rx#:[id number] Sodium Chloride 0.9% 1, 700 000 ml @ 100 mls/hr IV . Q10H [facility] Rx#:[id number] Oral 720 Output: Urine 1700 500 Other: Voiding Method Toilet Toilet Toilet Bedside Commode Bedside Commode Bedside Commode # Voids 1 2 # Bowel Movements 0 - Exam General appearance: The patient is alert, oriented, in no acute distress. HET: Head is normocephalic and atraumatic. Pupils are equal and reactive. Oropharynx is clear without lesions. Neck: Supple without lymphadenopathy. Trachea midline. Heart: S1 S2. Regular rate and rhythm. Lungs: No crackles or wheezes are heard. Abdomen: Soft, nontender, nondistended with bowel sounds. No peritoneal signs. No palpable organomegaly or masses. Extremities: Normal skin color and turgor. No cyanosis, rash, ulceration, clubbing, or edema. Radial and pedal pulses are 2/4 bilaterally. Neurological: No focal deficits. Strength and sensation are grossly intact. - Labs CBC & Chem 7: 02/24/17 19:00 02/24/17 03:49 Labs: Abnormal Lab Results - Last 24 Hours (Table) 02/23/17 02/24/17 02/24/17 Range/Units 10:10 03:49 19:00 RBC 2.75 L (3.80-5.40) m/uL Hgb 8.8 L (11.4-16.0) gm/dL Hct 25.6 L (34.0-46.0) % RDW 15.8 H (11.5-15.5) % Lipase 461 H (23-300) U/L Urine Ketones Trace H (Negative) Ur Leukocyte Esterase Moderate H (Negative) Urine WBC 15 H (0-5) /hpf Urine Bacteria Rare H (None) /hpf Urine Mucus Rare H (None) /hpf Assessment and Plan (1) Acute upper GI bleed Status: Acute (2) Antral ulcer Status: Acute (3) Acute blood loss anemia Status: Acute (4) Iron deficiency anemia Status: Acute (5) Anemia in chronic kidney disease Status: Acute (6) CKD (chronic kidney disease) Status: Acute Plan: 1. Diet as tolerated. Monitor CBC closely. Continue with iron and omeprazole 40 mg daily on discharge. Return to office in 2-3 weeks for reevaluation. Discharge per medicine. Assessment and plan of care discussed with Dr. Gan.
[2017-02-25 10:18] LABS: Prothrombin Time 10.4 sec (9.0-12.0)
[2017-02-25 10:19] LABS: Anion Gap 7 mmol/L; Blood Urea Nitrogen 23 mg/dL (7-17); Calcium 8.5 mg/dL (8.4-10.2); Carbon Dioxide 21 mmol/L (22-30); Chloride 108 mmol/L (98-107); Glucose 154 mg/dL (74-99); Magnesium 1.4 mg/dL (1.6-2.3); Non-African American GFR(MDRD) 52 (>60 ml/min/1.73 sqM); Phosphorous 2.4 mg/dL (2.5-4.5); Potassium 4.1 mmol/L (3.5-5.1); Sodium 136 mmol/L (137-145)
[2017-02-25] MEDS ORDERED: SODIUM PHOSPHATE 10 MMOL in SODIUM CHLORIDE 0.9% 250 ML IVPB ONE ×2 (11:34→13:00)
--- NOTE | 2017-02-25 12:41 | P.PN ---
Subjective Principal diagnosis: Gastrointestinal bleeding 71-year-old female patient, presented to the hospital because of GI bleeding. The patient was attending her granddaughter's graduation and his [place] and after dinner she started having increased nausea and coffee-ground emesis on multiple occasions. The patient managed to get back to [place] and she was hospitalized yesterday with a profoundly low hemoglobin of 5.9. She was given a total of 2 units of packed RBC and subsequent hemoglobin from today is 8.2. She is currently in the intensive care unit. She was given IV fluids and creatinine came from a baseline of 1.7 down to 1.3. This patient has history of iron deficiency. She hasn't been investigated in the past with colonoscopy and she was found to have mild diverticulosis and the colonoscopy was done in 2013. She has not had any EGD that she can recall. No reported history of aspirin or nonsteroidal anti-inflammatory medication intake. The patient has stage III chronic renal failure that she avoids taking nonsteroidal anti-inflammatory medications. No chronic liver disease. She drinks approximately 15 drinks on a weekly basis including a combination of wine and vodka. She is producing adequate amount of urine output. No nausea this morning. No abdominal pain. She was expressing some cramping and epigastric area. No history of any esophageal tear. The lipase was 422. The amylase was 114. The rest of the liver function tests were within normal limits. The stool for occult blood was slightly positive. She is resting comfortably in bed. She is hemodynamically stable at this point. Afebrile. Coagulation profile is also within normal limits. The patient is seen again today 02/25/2017 in follow-up on the regular medical floor. She is awake and alert in no acute distress. She had subsequently undergone EGD and was found to have a small sliding hiatal hernia with no obvious mucosal tears. There is antral gastritis with antral ulcer covered with white exudate not actively bleeding. Biopsies were obtained. Presently, she is resting quite comfortably in bed. She denies any worsening shortness of breath, cough or congestion. No further GI bleeding noted. Current hemoglobin 8.0. She is maintaining good O2 saturations in the high 90s on room air. She' s been afebrile. Hemodynamically stable. She is anxious to go home. Objective - Vital Signs Vital signs: Vital Signs Temp 97.6 F 02/25/17 07:00 Pulse 82 02/25/17 07:00 Resp 16 02/25/17 07:00 BP 149/73 02/25/17 07:00 Pulse Ox 99 02/25/17 07:00 Intake & Output 02/24/17 02/25/17 02/25/17 18:59 06:59 18:59 Intake Total 1500 920 Output Total 1700 500 Balance -200 420 Intake: IV 200 Intake, IV Titration 1300 200 Amount IV Fluid Continuation 1, 400 200 000 ml As IV .[facility] Rx#:[id number] Potassium Chloride 10 meq 200 Lidocaine 2% Inj 10 mg In Sodium Chloride 0.9% 100 ml @ 100 mls/hr IV Q1HR [facility] Rx#:[id number] Sodium Chloride 0.9% 1, 700 000 ml @ 100 mls/hr IV . Q10H [facility] Rx#:[id number] Oral 720 Output: Urine 1700 500 Other: Voiding Method Toilet Toilet Toilet Bedside Commode Bedside Commode Bedside Commode # Voids 1 2 # Bowel Movements 0 - Exam The patient appeared well nourished and normally developed. Vital signs as documented. Head exam is unremarkable. No scleral icterus or corneal arcus noted. Neck is without jugular venous distension, thyromegaly, or carotid bruits. Carotid upstrokes are brisk bilaterally. Lungs are clear to auscultation and percussion. Cardiac exam reveals the PMI to be normally sized and situated. Rhythm is regular. First and second heart sounds normal. No murmurs, rubs or gallops. Abdominal exam reveals normal bowel sounds, no masses , no organomegaly and no aortic enlargement. Extremities are nonedematous and both femoral and pedal pulses are normal. - Labs CBC & Chem 7: 02/25/17 09:19 02/25/17 09:19 Labs: Abnormal Lab Results - Last 24 Hours (Table) 02/24/17 02/25/17 02/25/17 Range/Units 19:00 09:19 09:19 RBC 2.75 L 2.56 L (3.80-5.40) m/uL Hgb 8.8 L 8.0 L (11.4-16.0) gm/dL Hct 25.6 L 24.5 L (34.0-46.0) % RDW 15.8 H 15.8 H (11.5-15.5) % Lymphocytes # 0.7 L (1.0-4.8) k/uL Sodium 136 L (137-145) mmol/L Chloride 108 H (98-107) mmol/L Carbon Dioxide 21 L (22-30) mmol/L BUN 23 H (7-17) mg/dL Glucose 154 H (74-99) mg/dL Phosphorus 2.4 L (2.5-4.5) mg/dL Magnesium 1.4 L (1.6-2.3) mg/dL Assessment and Plan Plan: Assessment 1 upper GI bleeding. EGD revealed a small sliding hiatal hernia with no obvious mucosal tears. There is also antral gastritis with antral ulcer covered with white exudate not actively bleeding. Biopsies were taken. 2 profound anemia with hemoglobin of 5.9 secondary to above, improved with 2 units of packed RBC transfusion. Hemoglobin today 8.0. 3 acute kidney injury on top of stage III chronic renal failure, improving and the creatinine is down to 1.04 4 intravascular depletion, improved with fluid resuscitation 5 stage III chronic kidney failure 6 hypertension 7 hyperlipidemia 8 mild diverticulosis based on the previous colonoscopies 9 alcohol ingestion in excess of 15 drinks on a weekly basis 10 mild component of pancreatitis, without any significant abdominal pain. Liver function tests are within normal limits had Plan: The patient was seen and evaluated by Dr. Deras. She is currently stable from the critical care standpoint. She has had no further active GI bleeding. EGD was performed yesterday and noted as above. Plan is for discharge home with close follow-up with GI services.
[2017-02-25] MEDS: MAGNESIUM SULFATE-D5W PMX 1 GM in DEXTROSE/WATER 1 100ML.BAG IVPB SCH ×2 (12:51→13:58)
[2017-02-25 15:30] VITALS: BP 156/67; PULSE 77
--- NOTE | 2017-02-26 16:22 | P.DS ---
Providers Date of admission: 02/23/17 16:06 Expected date of discharge: 02/25/17 Attending physician: Bubba Freeman Consults: 02/23/17 15:48 Consult Physician Stat Consulting Provider: Cortes Rutledge Reason/Comments: anemia, dehydration, GI bleeding Do you want consulting provider notified?: Already Contacted Primary care physician: Evan Nestor [facility] Course: This is a 71-year-old female one of Dr. Baez with a previous medical history significant for hypertension and hypertensive cardiovascular disease with left ventricular hypertrophy, history of chronic kidney disease stage III, chronic iron deficiency anemia, osteoporosis, osteoarthritis, hypoglycemia, has been under the care of herself [place] as well as nephrology at [facility], patient went to attend a graduation alliance party for her granddaughter in [place], [place], patient went for dinner and after that she developed to have a significant amount pain associated with nausea and vomiting she had 2 episode of coffee-ground emesis, she managed to get back to [place] and she stated hold for another few hours before she came to the ER last night where she was found to have a hemoglobin of 5.9, patient was admitted to the intensive care unit, she was started on 3 units of packed red blood cells, her hemoglobin currently is a benign, she was seen by Dr. Deras, she will be seen in consultation by gastroenterology for EGD. 02/25: EGD and biopsy performed by Dr. Gan were done which found small sliding hiatal hernia with no obvious mucosal tears. Antral gastritis with antral ulcer covered with white exudate with no active bleeding. Biopsies were obtained from the antrum. Biopsy report reveals mild chronic inflammation. Negative for H pylori cannot exclude gastroduodenal junction versus chronic gastritis with intestinal metaplasia. Hemoglobin is 8.0. Patient has had no further bleeding. She is tolerating diet and has been instructed to avoid seeds and nuts and continue a soft diet for now. Patient will be discharged home today in stable condition. Discharge diagnoses: 1. Acute upper GI bleed. 2. Acute blood loss anemia .status post 3 units of packed red blood cell transfusion. 3. Acute kidney injury on top of chronic kidney disease secondary to acute tubular necrosis due to GI bleed. 4. Chronic kidney disease stage III. 5. Hypertension and hypertensive cardiovascular disease. 6. Hyperlipidemia. 7. History of arthritis. No NSAIDs. 8. Anxiety generalized and recurrent depressive disorder. 9. Iron deficiency anemia. 10. Chronic alcohol use and dependence. 11. History of osteoporosis. 12. History of hypoglycemia. Discharge plan: Return home Impression and plan of care have been directed as dictated by the signing physician. Jocelynn Watkins nurse practitioner acting as scribe for signing physician. Patient Condition at Discharge: Good Plan - Discharge Summary New Discharge Prescriptions: Pantoprazole Sodium [Protonix] 40 mg PO BID #60 tablet. Discharge Medication List ALPRAZolam [Xanax] 0.125 mg PO Q8HR PRN 03/01/14 [History] FLUoxetine HCL 40 mg PO DAILY 03/01/14 [History] Furosemide 20 mg PO DAILY 03/01/14 [History] Atorvastatin [Lipitor] 10 mg PO HS 02/23/17 [History] Felodipine ER [Plendil] 10 mg PO DAILY 02/23/17 [History] Metoprolol Tartrate [Lopressor] 50 mg PO BID 02/23/17 [History] Ferrous Sulfate [Iron (65 MG Elemental)] 325 mg PO DAILY 02/24/17 [History] Magnesium Oxide [Mag-Ox] 250 mg PO DAILY 02/24/17 [History] Pantoprazole Sodium [Protonix] 40 mg PO BID #60 tablet. 02/25/17 [Rx] Follow up Appointment(s)/Referral(s): Nate Gan MD [STAFF PHYSICIAN] - 03/18/17 3:45 pm Evan Baez MD [Primary Care Provider] - 03/06/17 2:45 pm Patient Instructions/Handouts: Peptic Ulcer (DC), Anemia (DC) Activity/Diet/Wound Care/Special Instructions: Soft diet. No seeds or nuts. Discharge Disposition: HOME SELF-CARE
--- NOTE | 2017-03-03 14:48 | CDI ---
In responding to this query, please exercise your independent professional judgment. The [facility] Coding Staff and Clinical Documentation Specialists appreciate your assistance in clarifying documentation, maintaining compliance with coding guidelines, accurately documenting patients condition and capturing severity of illness. The fact that a question is asked does not imply that any particular answer is desired or expected. Communication forms are a method of clarifying documentation and are not made part of the Legal Health Record. Thank you in advance for your clarification. Last Revision, December 2015 Darlene Bassett [address] [place] [address] Documentation Clarification Form Date: 03/03/2017 2:28:00 PM From: Gerda Rodriguez, [facility] & Lisa Quintanilla, Strategic Consultant & Lisa [phone] Admit Date: 02/23/2017 4:06:00 PM Patient Name: Danae Paiz Visit Number: [id number] Discharge Date: 02-25-17 Jocelynn Watkins NP-C: Please confirm if ACUTE UPPER GI BLEED IS THE final discharge diagnosis or if there is linkage of bleeding to any of the patient's current disease processes. Discharge Summary states: #1 Acute upper GI Bleed. #2 Acute blood loss anemia s /p 3 units PRBC transfusion. #9 Iron deficiency anemia. EGD w/ biopsy, done on 02-24-[address] Gan states "...There was some mottling and erythema in the antrum and there was an antral ulcer covered with white exudate without any stigmata of recent or active bleeding. The ulcer measured around 2 cm in greatest diameter." Also, OP note states "...Small sliding hiatal hernia with no obvious mucosal tears." Patient history/risk factors: Patient taking daily Aspirin, ARF/ATN, CKD III, alcohol dependene, Hypertension, chronic Fe deficiency anemia, coffee ground emesis, diverticulosis Radiology: US abdomen, Abdomen films Labs: Stool occult blood positive on 02-23-17. Hemoglobin 02-23-17 = 5.9, 8.6. Hemoglobin 02-24-17 = 8.2, 8.8. Treatment: Ferrous Sulfate, Protonix, abstain from alcohol. EGD w/ biopsies, transfusion. Consults: Dr Gan In your professional opinion, can you please clarify the underlying cause of GI bleed if known? Other, please specify Unable to determine Please document in your progress notes and discharge summary in order to capture severity of illness and risk of mortality. Include clinical findings that support your diagnosis. FYI: Press F11 to launch patient chart Place X here if this finding has no clinical significance, is not applicable or if you are not able to provide any additional documentation. KOLED
--- NOTE | 2017-03-07 11:01 | CDI ---
In responding to this query, please exercise your independent professional judgment. The [facility] Coding Staff and Clinical Documentation Specialists appreciate your assistance in clarifying documentation, maintaining compliance with coding guidelines, accurately documenting patients condition and capturing severity of illness. The fact that a question is asked does not imply that any particular answer is desired or expected. Communication forms are a method of clarifying documentation and are not made part of the Legal Health Record. Thank you in advance for your clarification. Last Revision, December 2015 Darlene Bassett [address] [facility] [address] [place] [address] Documentation Clarification Form Date: 03/07/2017 10:56:00 AM From: Gerda Rodriguez, [facility] & Lisa Quintanilla, Director Sales & Lisa = [phone] Admit Date: 02/23/2017 4:06:00 PM Patient Name: Danae Paiz Visit Number: [id number] Discharge Date: 02-25-17 Jocelynn Watkins Please confirm if ACUTE UPPER GI BLEED IS THE final discharge diagnosis or if there is linkage of bleeding to any of the patient's current disease processes. Discharge Summary states: #1 Acute upper GI Bleed. #2 Acute blood loss anemia s /p 3 units PRBC transfusion. #9 Iron deficiency anemia. EGD w/ biopsy, done on 02-24-[address] Gan states "...There was some mottling and erythema in the antrum and there was an antral ulcer covered with white exudate without any stigmata of recent or active bleeding. The ulcer measured around 2 cm in greatest diameter." Also, OP note states "...Small sliding hiatal hernia with no obvious mucosal tears." Patient history/risk factors: Patient taking daily Aspirin, ARF/ATN, CKD III, alcohol dependene, Hypertension, chronic Fe deficiency anemia, coffee ground emesis, diverticulosis Radiology: US abdomen, Abdomen films Labs: Stool occult blood positive on 02-23-17. Hemoglobin 02-23-17 = 5.9, 8.6. Hemoglobin 02-24-17 = 8.2, 8.8. Treatment: Ferrous Sulfate, Protonix, abstain from alcohol. EGD w/ biopsies, transfusion. Consults: Dr Gan In your professional opinion, can you please clarify the underlying cause of GI bleed if known? Other, please specify Unable to determine Please document in your progress notes and discharge summary in order to capture severity of illness and risk of mortality. Include clinical findings that support your diagnosis. FYI: Press F11 to launch patient chart Place X here if this finding has no clinical significance, is not applicable or if you are not able to provide any additional documentation. KOLED
== END 2017-02-25 17:57 | disposition home or self-care (01) | DRG 377 ==
LOC: EC 13:22 → 6ICU 16:06 → 4MS4W 02-24 20:47
PROVIDERS: ADMIT Internal Medicine; ATTEND Internal Medicine
PROC: 30233N1 Transfusion of Nonautologous Red Blood Cells into Peripheral Vein, Percutaneous Approach (ICD-10-PCS; 2017-02-23)
PROC: 0DB68ZX Excision of Stomach, Via Natural or Artificial Opening Endoscopic, Diagnostic (ICD-10-PCS; principal; 2017-02-24 08:30)
DX: K25.4 Chronic or unspecified gastric ulcer with hemorrhage (principal); N17.0 Acute kidney failure with tubular necrosis; D62 Acute posthemorrhagic anemia; F33.9 Major depressive disorder, recurrent, unspecified; E86.0 Dehydration; I13.10 Hypertensive heart and chronic kidney disease without heart failure, with stage 1 through stage 4 chronic kidney disease, or unspecified chronic kidney disease; K92.0 Hematemesis; K29.61 Other gastritis with bleeding; F10.20 Alcohol dependence, uncomplicated; N18.3 Chronic kidney disease, stage 3 (moderate); K44.9 Diaphragmatic hernia without obstruction or gangrene; E78.5 Hyperlipidemia, unspecified; M81.0 Age-related osteoporosis without current pathological fracture; R53.1 Weakness; R74.8 Abnormal levels of other serum enzymes; D63.1 Anemia in chronic kidney disease; M10.9 Gout, unspecified; M19.90 Unspecified osteoarthritis, unspecified site; K57.30 Diverticulosis of large intestine without perforation or abscess without bleeding; F41.1 Generalized anxiety disorder; Z79.899 Other long term (current) drug therapy; Z79.82 Long term (current) use of aspirin; Z98.1 Arthrodesis status; Z80.3 Family history of malignant neoplasm of breast; Z88.6 Allergy status to analgesic agent; Z88.1 Allergy status to other antibiotic agents; Z88.2 Allergy status to sulfonamides; Z86.39 Personal history of other endocrine, nutritional and metabolic disease; Z71.41 Alcohol abuse counseling and surveillance of alcoholic; Z98.51 Tubal ligation status; Z90.721 Acquired absence of ovaries, unilateral; Z98.42 Cataract extraction status, left eye; Z98.41 Cataract extraction status, right eye; Z96.1 Presence of intraocular lens
CPT/HCPCS: 36415; 36430; 43239; 74020; 76700; 80048; 80053; 81001; 82150; 82272; 82550; 82553; 83605; 83690; 83735; 84100; 84132; 84484; 85025; 85027; 85610; 85730; 86850; 86900; 86901; 86920; 88305; 88342; 93005; 96360; 96361; 99285

== ENCOUNTER → 2017-03-04 | Outpatient (CLI) | payer MEDICARE, BC ==
[~2017-03-04] MED LIST: DARBEPOETIN ALFA 25 MCG/0.42 ML SYRINGE SQ ONE
[2017-03-04 14:45] VITALS: BP 125/58; PULSE 68; RESP 16; TEMP 98
[2017-03-04 15:10] LABS: CH 30.9; CHCM 31.5; HCT 26.2 % (34.0-46.0); HDW 2.36; HGB 8.5 gm/dL (11.4-16.0); Hypochromasia Slight; MCH 32.1 pg (25.0-35.0); MCHC 32.5 g/dL (31.0-37.0); MCV 98.5 fL (80.0-100.0); Mean Platelet Volume 6.6; RBC 2.66 m/uL (3.80-5.40); RDW 14.7 % (11.5-15.5); WBC 5.1 k/uL (3.8-10.6)
[2017-03-04 15:34] LABS: % Iron Saturation 12.8 % (20-50)
== END | disposition home or self-care (01) ==
LOC: PROCWHC3 14:29
PROVIDERS: ATTEND Internal Medicine Nephrology
DX: N18.3 Chronic kidney disease, stage 3 (moderate) (principal); N18.9 Chronic kidney disease, unspecified; D63.1 Anemia in chronic kidney disease
CPT/HCPCS: 82728; 83540; 83550; 85027; 96372; 36415; J0881

== ENCOUNTER → 2017-03-19 | Outpatient (CLI) | payer MEDICARE, BC ==
[2017-03-19 10:49] LABS: Calcium 9.9 mg/dL (8.4-10.2); Phosphorous 4.1 mg/dL (2.5-4.5); Potassium 4.9 mmol/L (3.5-5.1); Total Bilirubin 0.4 mg/dL (0.2-1.3); Total Protein 7.2 g/dL (6.3-8.2)
[2017-03-19 10:58] LABS: Basophils % (A) 1 %; CH 30.7; CHCM 32.5; Eosinophils # (A) 0.3 k/uL (0-0.7); Eosinophils % (A) 6 %; HCT 29.3 % (34.0-46.0); HDW 2.46; HGB 9.6 gm/dL (11.4-16.0); Luc # (Auto) 0.21; Luc % (Auto) 4; Lymphocytes # (A) 1.1 k/uL (1.0-4.8); Lymphocytes % (A) 20 %; MCH 31.1 pg (25.0-35.0); MCHC 32.7 g/dL (31.0-37.0); Mean Platelet Volume 6.5; Monocytes # (A) 0.4 k/uL (0-1.0); Monocytes % (A) 9 %; Neutrophils # (A) 3.2 k/uL (1.3-7.7); Neutrophils % (A) 61 %; RBC 3.09 m/uL (3.80-5.40); WBC 5.2 k/uL (3.8-10.6); WBC (Perox) 5.32
== END | disposition home or self-care (01) ==
LOC: LABWHC1 10:11
PROVIDERS: ATTEND Internal Medicine Nephrology
DX: D64.9 Anemia, unspecified (principal); N18.3 Chronic kidney disease, stage 3 (moderate)
CPT/HCPCS: 36415; 80053; 82043; 83735; 84100; 85025

== ENCOUNTER → 2017-03-26 | Outpatient (CLI) | payer MEDICARE, BC ==
--- NOTE | 2017-03-26 13:46 | CT ---
EXAMINATION TYPE: CT abdomen pelvis wo con DATE OF EXAM: 03/26/2017 COMPARISON: 03/05/2010 INDICATION: Disorder of pancreatic internal secretion DLP: 242.1 mGycm, Automated exposure control for dose reduction was used. CONTRAST: 0 mL of Omnipaque 300. Study performed with Oral Contrast TECHNIQUE: Axial images were obtained from above the diaphragm to the pubic rami in the axial plane a t 5 mm thick sections. Reconstructed images are reviewed on the computer in the coronal plane. FINDINGS: Limited CT sections are obtained the lung bases. The lung bases are clear. Coronary artery calcific ation is present. CT ABDOMEN: Liver: Normal Spleen: Normal Pancreas: Normal Adrenal glands: The adrenal glands are normal. Gallbladder: Normal Kidneys: No masses are evident. No hydronephrosis is present. No cysts are present. No renal stone s are evident. There may be some mild right hydroureter. Mild proximal left hydroureter is present. T hese prominences. Resolved within the pelvis. No distal obstructing renal stones are identified. Aorta: Vascular calcification is within the aorta. Inferior vena cava: Normal. CT PELVIS: Loops of bowel within the abdomen and pelvis are normal. There are scattered diverticuli within t he sigmoid colon. No dilated loops of bowel are evident. Appendix: Normal as visualized. Urinary bladder: Normal. Genitourinary structures: Uterus appears normal. There is a right ovarian cyst measuring 3.2 x 4.0 cm . Osseous structures: No suspicious lytic or sclerotic lesions. IMPRESSIONS: 1. 3.2 x 4.0 cm right ovarian cyst. 2. Scattered mild sigmoid diverticulosis without acute diverticulitis. 3. Proximal ureters appear somewhat prominent, more so on the right. No obstructing renal stones are identified.
== END | disposition home or self-care (01) ==
LOC: RADCTMAIN 08:19
PROVIDERS: ATTEND Internal Medicine Geriatric Medicine
DX: K57.30 Diverticulosis of large intestine without perforation or abscess without bleeding (principal); N83.201 Unspecified ovarian cyst, right side; R93.41 Abnormal radiologic findings on diagnostic imaging of renal pelvis, ureter, or bladder; E16.9 Disorder of pancreatic internal secretion, unspecified
CPT/HCPCS: 74176

== ENCOUNTER 2017-05-26 14:15 | Emergency (ER) | payer MEDICARE, BC ==
[2017-05-26] MEDS ORDERED: SODIUM CHLORIDE 0.9% 500 ML IV STA (14:36)
--- NOTE | 2017-05-26 14:40 | ED ---
General Adult HPI - General Chief complaint: Weakness Stated complaint: weakness Time Seen by Provider: 05/26/17 14:15 Source: RN notes reviewed - History of Present Illness Initial comments: This is a 72-year-old female presents emergency department stating that she did not eat breakfast or lunch today which is not all that unusual. Patient states she felt fine initially but then she started to become very sweaty and felt as though her heart was racing a little bit. And then she became extremely weak diffusely. Patient denies any chest pain patient denies any difficulty breathing or shortness of breath. Patient denies abdominal pain patient denies nausea vomiting diarrhea. Patient denies any fever chills. Patient denies any dysuria hematuria urinary frequency. Patient denies any headache patient denies any numbness or focal weakness. Patient denies any lightheadedness or dizziness. Patient states when she got in the emesis he noted her sugar to be low at 58 and gave her some glucose in the IV and she stated after that she started feeling little bit better. Patient states she's had a daily drinker but last night she had a few drinks with vodka and some wine. - Related Data Home Medications Medication Instructions Recorded Confirmed ALPRAZolam [Xanax] 0.125 - 0.25 mg PO Q8H PRN 03/01/14 05/26/17 FLUoxetine HCL 40 mg PO DAILY 03/01/14 05/26/17 Furosemide 20 mg PO DAILY 03/01/14 05/26/17 Atorvastatin [Lipitor] 10 mg PO HS 02/23/17 05/26/17 Felodipine ER [Plendil] 10 mg PO DAILY 02/23/17 05/26/17 Metoprolol Tartrate [Lopressor] 50 mg PO BID 02/23/17 05/26/17 Ferrous Sulfate [Iron (65 MG 325 mg PO DAILY 02/24/17 05/26/17 Elemental)] Magnesium Oxide [Mag-Ox] 250 mg PO DAILY 02/24/17 05/26/17 Pantoprazole Sodium [Protonix] 40 mg PO DAILY 05/26/17 05/26/17 Allergies Allergy/AdvReac Type Severity Reaction Status Date / Time celecoxib [From Celebrex] Allergy Rash/Hives Verified 05/26/17 15:31 nitrofurantoin Allergy Swelling Verified 05/26/17 15:31 [From Macrobid] nitrofurantoin Allergy Swelling Verified 05/26/17 15:31 macrocrystalline [From Macrobid] sulfamethoxazole Allergy Swelling Verified 05/26/17 15:31 [From Bactrim] trimethoprim [From Bactrim] Allergy Swelling Verified 05/26/17 15:31 Review of Systems ROS Statement: Those systems with pertinent positive or pertinent negative responses have been documented in the HPI. ROS Other: All systems not noted in ROS Statement are negative. Past Medical History Past Medical History: Eye Disorder, GI Bleed, Hyperlipidemia, Hypertension, Musculoskeletal Disorder, Osteoarthritis (OA), Renal Disease Additional Past Medical History / Comment(s): Chronic anemia, iron deficiency, chronic kidney disease stage III, diverticular disease, hyperlipidemia, osteoarthritis, osteoporosis, hypoglycemia, gout, chronic alcohol use and dependence. History of Any Multi-Drug Resistant Organisms: None Reported Past Surgical History: Orthopedic Surgery, Tonsillectomy, Tubal Ligation Additional Past Surgical History / Comment(s): removal ovary, bilateral cararact removal with lens implant; cervical spinal fusion Past Anesthesia/Blood Transfusion Reactions: No Reported Reaction Smoking Status: Former smoker - Past Family History Mother Family Medical History: Osteoarthritis (OA) (Mother at age of 88 had a history of osteoarthritis .) Sister(s) Family Medical History: Cancer (Patient has a sister who is a survivor of breast cancer and a half-sister with no major medical problems.) Additional Family Medical History / Comment(s): breast cancer Father Family Medical History: No Reported History (Father at age of 92 from old age and he was a out of the [facility]) Brother(s) Family Medical History: Osteoarthritis (OA) (Patient has 2 brothers one of them in the ECF from severe osteoarthritis, and 2 half-brothers.) Daughter(s) Family Medical History: No Reported History (Patient has a daughter no major medical problems.) Son(s) Family Medical History: No Reported History (Patient has a son no major medical problems.) General Exam - General Exam Comments Initial Comments: GENERAL: Patient is well-developed and well-nourished. Patient is nontoxic and well- hydrated and is in mild distress. ENT: Neck is soft and supple. No significant lymphadenopathy is noted. Oropharynx is clear. Moist mucous membranes. Neck has full range of motion without eliciting any pain. EYES: The sclera were anicteric and conjunctiva were pink and moist. Extraocular movements were intact and pupils were equal round and reactive to light. Eyelids were unremarkable. PULMONARY: Unlabored respirations. Good breath sounds bilaterally. No audible rales rhonchi or wheezing was noted. CARDIOVASCULAR: There is a regular rate and rhythm without any murmurs gallops or rubs. ABDOMEN: Soft and nontender with normal bowel sounds. SKIN: Skin is clear with no lesions or rashes and otherwise unremarkable. NEUROLOGIC: Patient is alert and oriented x3. Cranial nerves II through XII are grossly intact. Motor and sensory are also intact. Normal speech, volume and content. Symmetrical smile. MUSCULOSKELETAL: Normal extremities with adequate strength and full range of motion. No lower extremity swelling or edema. No calf tenderness. LYMPHATICS: No significant lymphadenopathy is noted PSYCHIATRIC: Normal psychiatric evaluation. Normal interpersonal interactions appears functionally intact in deals appropriately with others. No signs of depression. No signs of anxiety. Course Vital Signs 05/26/17 05/26/17 05/26/17 14:35 14:38 15:36 Pulse Rate 61 63 78 Respiratory 20 20 20 Rate Blood Pressure 128/58 138/60 O2 Sat by Pulse 100 100 100 Oximetry Medical Decision Making - Medical Decision Making I will back into the room to reevaluate the patient she stated she was feeling at her baseline she was no longer nauseated and no longer felt weak. Patient states she wanted to go home and if she had any further problems she will follow -up with her primary medical care doctor. - Lab Data Result diagrams: 05/26/17 14:41 05/26/17 14:41 Lab Results 05/26/17 05/26/17 05/26/17 Range/Units 14:41 14:41 14:41 WBC 5.9 (3.8-10.6) k/uL RBC 3.65 L (3.80-5.40) m/uL Hgb 11.6 (11.4-16.0) gm/dL Hct 34.4 (34.0-46.0) % MCV 94.1 (80.0-100.0) fL MCH 31.7 (25.0-35.0) pg MCHC 33.7 (31.0-37.0) g/dL RDW 14.3 (11.5-15.5) % Plt Count 341 (150-450) k/uL Neutrophils % 79 % Lymphocytes % 10 % Monocytes % 4 % Eosinophils % 3 % Basophils % 1 % Neutrophils # 4.7 (1.3-7.7) k/uL Lymphocytes # 0.6 L (1.0-4.8) k/uL Monocytes # 0.3 (0-1.0) k/uL Eosinophils # 0.2 (0-0.7) k/uL Basophils # 0.0 (0-0.2) k/uL PT (9.0-12.0) sec INR (<1.2) APTT (22.0-30.0) sec Sodium 134 L (137-145) mmol/L Potassium 5.0 (3.5-5.1) mmol/L Chloride 100 (98-107) mmol/L Carbon Dioxide 18 L (22-30) mmol/L Anion Gap 16 mmol/L BUN 37 H (7-17) mg/dL Creatinine 1.38 H (0.52-1.04) mg/dL Est GFR (MDRD) Af Amer 45 (>60 ml/min/1.73 sqM) Est GFR (MDRD) Non-Af 37 (>60 ml/min/1.73 sqM) Glucose 146 H (74-99) mg/dL POC Glucose (mg/dL) (75-99) mg/dL POC Glu Sustainability Director ID Calcium 9.7 (8.4-10.2) mg/dL Magnesium 1.7 (1.6-2.3) mg/dL Total Bilirubin 0.5 (0.2-1.3) mg/dL AST 38 H (14-36) U/L ALT 32 (9-52) U/L Alkaline Phosphatase 111 (38-126) U/L Total Creatine Kinase 31 (30-135) U/L CK-MB (CK-2) 1.0 (0.0-2.4) ng/mL CK-MB (CK-2) Rel Index 3.2 Troponin I <0.012 (0.000-0.034) ng/mL Total Protein 7.4 (6.3-8.2) g/dL Albumin 4.3 (3.5-5.0) g/dL Urine Color Urine Appearance (Clear) Urine pH (5.0-8.0) Ur Specific [place] (1.001-1.035) Urine Protein (Negative) Urine Glucose (UA) (Negative) Urine Ketones (Negative) Urine Blood (Negative) Urine Nitrite (Negative) Urine Bilirubin (Negative) Urine Urobilinogen (<2.0) mg/dL Ur Leukocyte Esterase (Negative) 05/26/17 05/26/17 05/26/17 Range/Units 14:41 15:43 16:01 WBC (3.8-10.6) k/uL RBC (3.80-5.40) m/uL Hgb (11.4-16.0) gm/dL Hct (34.0-46.0) % MCV (80.0-100.0) fL MCH (25.0-35.0) pg MCHC (31.0-37.0) g/dL RDW (11.5-15.5) % Plt Count (150-450) k/uL Neutrophils % % Lymphocytes % % Monocytes % % Eosinophils % % Basophils % % Neutrophils # (1.3-7.7) k/uL Lymphocytes # (1.0-4.8) k/uL Monocytes # (0-1.0) k/uL Eosinophils # (0-0.7) k/uL Basophils # (0-0.2) k/uL PT 9.7 (9.0-12.0) sec INR 0.9 (<1.2) APTT 24.9 (22.0-30.0) sec Sodium (137-145) mmol/L Potassium (3.5-5.1) mmol/L Chloride (98-107) mmol/L Carbon Dioxide (22-30) mmol/L Anion Gap mmol/L BUN (7-17) mg/dL Creatinine (0.52-1.04) mg/dL Est GFR (MDRD) Af Amer (>60 ml/min/1.73 sqM) Est GFR (MDRD) Non-Af (>60 ml/min/1.73 sqM) Glucose (74-99) mg/dL POC Glucose (mg/dL) 180 H (75-99) mg/dL POC Glu Sustainability Director ID Lavinia Cortes Calcium (8.4-10.2) mg/dL Magnesium (1.6-2.3) mg/dL Total Bilirubin (0.2-1.3) mg/dL AST (14-36) U/L ALT (9-52) U/L Alkaline Phosphatase (38-126) U/L Total Creatine Kinase (30-135) U/L CK-MB (CK-2) (0.0-2.4) ng/mL CK-MB (CK-2) Rel Index Troponin I (0.000-0.034) ng/mL Total Protein (6.3-8.2) g/dL Albumin (3.5-5.0) g/dL Urine Color Light Yellow Urine Appearance Clear (Clear) Urine pH 5.0 (5.0-8.0) Ur Specific [place] 1.005 (1.001-1.035) Urine Protein Negative (Negative) Urine Glucose (UA) Negative (Negative) Urine Ketones Trace H (Negative) Urine Blood Negative (Negative) Urine Nitrite Negative (Negative) Urine Bilirubin Negative (Negative) Urine Urobilinogen <2.0 (<2.0) mg/dL Ur Leukocyte Esterase Negative (Negative) Disposition Clinical Impression: Hypoglycemia Disposition: HOME SELF-CARE Condition: Good Instructions: Non-diabetic Hypoglycemia (ED) Referrals: Evan Baez MD [Primary Care Provider] - 1-2 days Time of Disposition: 16:24
[2017-05-26 14:50] LABS: Basophils % (A) 1 %; CH 30.9; Eosinophils # (A) 0.2 k/uL (0-0.7); Eosinophils % (A) 3 %; HCT 34.4 % (34.0-46.0); HDW 2.04; HGB 11.6 gm/dL (11.4-16.0); Luc # (Auto) 0.15; Luc % (Auto) 3; Lymphocytes # (A) 0.6 k/uL (1.0-4.8); Lymphocytes % (A) 10 %; MCH 31.7 pg (25.0-35.0); MCHC 33.7 g/dL (31.0-37.0); MCV 94.1 fL (80.0-100.0); Mean Platelet Volume 6.6; Monocytes # (A) 0.3 k/uL (0-1.0); Monocytes % (A) 4 %; Neutrophils # (A) 4.7 k/uL (1.3-7.7); Neutrophils % (A) 79 %; RBC 3.65 m/uL (3.80-5.40); RDW 14.3 % (11.5-15.5); WBC 5.9 k/uL (3.8-10.6); WBC (Perox) 6.04
[2017-05-26 15:00] LABS: INR 0.9 (<1.2); Partial Thromboplastin Time 24.9 sec (22.0-30.0); Prothrombin Time 9.7 sec (9.0-12.0)
[2017-05-26 15:01] LABS: Calcium 9.7 mg/dL (8.4-10.2); Magnesium 1.7 mg/dL (1.6-2.3); Total Bilirubin 0.5 mg/dL (0.2-1.3); Total Protein 7.4 g/dL (6.3-8.2)
[2017-05-26 15:14] LABS: Creatine Kinase 31 U/L (30-135)
[2017-05-26 15:26] LABS: Troponin I <0.012 ng/mL (0.000-0.034)
--- NOTE | 2017-05-26 15:46 | XR ---
EXAMINATION TYPE: XR chest 2V DATE OF EXAM: 05/26/2017 COMPARISON: 07/05/2014 HISTORY: Weakness, hypoglycemia and history of hypertension. TECHNIQUE: Frontal and lateral views of the chest are obtained. FINDINGS: There is no focal air space opacity, pleural effusion, or pneumothorax seen. The cardiac silhouette size is within normal limits. The osseous structures are intact. Cervical spine fixation plate is partially visualized from prior anterior cervical fusion. Mild degenerative changes are see n of the thoracic spine displayed is anterior osteophytes, endplate sclerosis and intervertebral disc space narrowing. IMPRESSION: No acute cardiopulmonary process.
[2017-05-26 15:51] LABS: Appearance,Urine Clear (Clear); Bilirubin,Urine Negative (Negative); Glucose,Urine (UA) Negative (Negative); Ketones,Urine Trace (Negative); Leukocyte Esterase,Urine Negative (Negative); Nitrite,Urine Negative (Negative); Protein,Urine Negative (Negative); Specific Gravity,Urine 1.005 (1.001-1.035); UA Billing (MACRO vs. MICRO) CHEM; Urobilinogen,Urine <2.0 mg/dL (<2.0)
[2017-05-26 16:15] LABS: Glucose,Whole Blood 180 mg/dL (75-99)
[2017-05-26 16:49] VITALS: BP 140/63; PULSE 64; RESP 16; TEMP 97.4
== END 2017-05-26 16:56 | disposition home or self-care (01) ==
LOC: EC 14:15
DX: E16.2 Hypoglycemia, unspecified (principal); E78.5 Hyperlipidemia, unspecified; I12.9 Hypertensive chronic kidney disease with stage 1 through stage 4 chronic kidney disease, or unspecified chronic kidney disease; N18.3 Chronic kidney disease, stage 3 (moderate); D50.9 Iron deficiency anemia, unspecified; Z87.891 Personal history of nicotine dependence; Z87.19 Personal history of other diseases of the digestive system; Z79.899 Other long term (current) drug therapy; Z88.1 Allergy status to other antibiotic agents; Z88.6 Allergy status to analgesic agent
CPT/HCPCS: 36415; 71020; 80053; 81003; 82550; 82553; 83735; 84484; 85025; 85610; 85730; 96360; 99285

== ENCOUNTER → 2017-06-19 | Outpatient (CLI) | payer MEDICARE, BC ==
[2017-06-19 13:42] LABS: % Iron Saturation 30.7 % (20-50)
== END | disposition home or self-care (01) ==
LOC: LABWHC1 12:27
PROVIDERS: ATTEND Internal Medicine Nephrology
DX: D64.9 Anemia, unspecified (principal)
CPT/HCPCS: 36415; 82728; 83540; 83550

== ENCOUNTER → 2017-06-24 | Outpatient (CLI) | payer MEDICARE, BC ==
[2017-06-24 14:19] VITALS: BP 131/61; PULSE 61; RESP 16; TEMP 97.8
[2017-06-24 14:56] LABS: CH 31.3; CHCM 32.4; HCT 30.3 % (34.0-46.0); HDW 1.99; MCH 31.8 pg (25.0-35.0); MCHC 32.7 g/dL (31.0-37.0); MCV 97.3 fL (80.0-100.0); Mean Platelet Volume 6.8; RBC 3.11 m/uL (3.80-5.40); RDW 14.4 % (11.5-15.5); WBC 4.5 k/uL (3.8-10.6)
[2017-06-24 14:57] LABS: Basophils % (A) 1 %; Eosinophils # (A) 0.2 k/uL (0-0.7); Eosinophils % (A) 5 %; Luc # (Auto) 0.13; Luc % (Auto) 3; Lymphocytes # (A) 0.7 k/uL (1.0-4.8); Lymphocytes % (A) 17 %; Monocytes # (A) 0.5 k/uL (0-1.0); Monocytes % (A) 12 %; Neutrophils # (A) 2.8 k/uL (1.3-7.7); Neutrophils % (A) 63 %
[2017-06-24 14:59] LABS: HGB 9.9 gm/dL (11.4-16.0)
== END | disposition home or self-care (01) ==
LOC: PROCWHC3 13:57
PROVIDERS: ATTEND Internal Medicine Nephrology
DX: D64.9 Anemia, unspecified (principal); N18.3 Chronic kidney disease, stage 3 (moderate)
CPT/HCPCS: 85025; 96372; 36415; J0881

== ENCOUNTER → 2017-10-16 | Outpatient (CLI) | payer MEDICARE, BC ==
--- NOTE | 2017-10-17 08:50 | MM ---
Reason for exam: screening (asymptomatic). Last mammogram was performed 1 year and 3 months ago. History: Patient is postmenopausal. Family history of breast cancer in sister at age 63. Benign excisional biopsy of the right breast, May 24, 1998. Took estrogen for 1 year 1 month beginning at age 56. Physical Findings: A clinical breast exam by your physician is recommended on an annual basis and results should be correlated with mammographic findings. MG 3D Screening Mammo W/Cad Bilateral CC and MLO view(s) were taken. Prior study comparison: July 22, 2016, bilateral MG 3d screening mammo w/cad. July 17, 2015, bilateral MG screening mammo w CAD. The breast tissue is heterogeneously dense. This may lower the sensitivity of mammography. Finding: There are typically benign diffuse/scattered calcifications in both breasts. No suspicious abnormality. No significant changes in finding since July 22, 2016 and July 17, 2015. ASSESSMENT: Benign, BI-RAD 2 RECOMMENDATION: Routine screening mammogram of both breasts in 1 year.
== END | disposition home or self-care (01) ==
LOC: RADMAMWWP 13:32
PROVIDERS: ATTEND Internal Medicine Geriatric Medicine
DX: Z12.31 Encounter for screening mammogram for malignant neoplasm of breast (principal)
CPT/HCPCS: 77063; 77067

== ENCOUNTER → 2018-03-05 | Outpatient (CLI) | payer MEDICARE, BC ==
[2018-03-05 11:42] LABS: Basophils % (A) 1 %; Eosinophils # (A) 0.3 k/uL (0-0.7); Eosinophils % (A) 6 %; HCT 29.4 % (34.0-46.0); HGB 9.6 gm/dL (11.4-16.0); Lymphocytes # (A) 0.8 k/uL (1.0-4.8); Lymphocytes % (A) 15 %; MCH 31.3 pg (25.0-35.0); MCHC 32.6 g/dL (31.0-37.0); Mean Platelet Volume 6.4; Monocytes # (A) 0.4 k/uL (0-1.0); Monocytes % (A) 8 %; Neutrophils # (A) 3.5 k/uL (1.3-7.7); Neutrophils % (A) 69 %; Platelet Count 349 k/uL (150-450); RBC 3.06 m/uL (3.80-5.40); RDW 14.3 % (11.5-15.5); WBC 5.1 k/uL (3.8-10.6)
[2018-03-05 12:00] LABS: Albumin 4.2 g/dL (3.5-5.0); Calcium 9.3 mg/dL (8.4-10.2); Magnesium 2.1 mg/dL (1.6-2.3); Phosphorus 4.5 mg/dL (2.5-4.5); Potassium 5.2 mmol/L (3.5-5.1)
[2018-03-05 12:02] LABS: Creatinine,Urine Random 27.3 mg/dL
[2018-03-05 16:20] LABS: Iron Saturation 21.05 (12.00-45.00)
[2018-03-05 16:29] LABS: Vitamin D 25 Hydroxy 51.1 ng/mL (30.0-100.0)
[2018-03-05 17:48] LABS: Parathyroid Hormone Intact 103.8 pg/mL (14.0-72.0)
== END | disposition home or self-care (01) ==
LOC: LABWHC1 10:56
PROVIDERS: ATTEND Internal Medicine Nephrology
DX: I12.9 Hypertensive chronic kidney disease with stage 1 through stage 4 chronic kidney disease, or unspecified chronic kidney disease (principal); N18.3 Chronic kidney disease, stage 3 (moderate)
CPT/HCPCS: 36415; 80069; 82306; 82570; 82728; 83540; 83550; 83735; 83970; 84156; 85025

== ENCOUNTER → 2018-07-01 | Outpatient (CLI) | payer MEDICARE, BC ==
[2018-07-01 11:03] LABS: Basophils # (A) 0.1 k/uL (0-0.2); Basophils % (A) 1 %; Eosinophils # (A) 0.2 k/uL (0-0.7); Eosinophils % (A) 6 %; HCT 31.1 % (34.0-46.0); HGB 10.3 gm/dL (11.4-16.0); Lymphocytes % (A) 25 %; MCH 31.8 pg (25.0-35.0); MCHC 33.1 g/dL (31.0-37.0); MCV 96.1 fL (80.0-100.0); Mean Platelet Volume 6.4; Monocytes # (A) 0.4 k/uL (0-1.0); Monocytes % (A) 10 %; Neutrophils # (A) 2.1 k/uL (1.3-7.7); Neutrophils % (A) 54 %; Platelet Count 380 k/uL (150-450); RBC 3.24 m/uL (3.80-5.40); RDW 13.9 % (11.5-15.5); WBC 3.8 k/uL (3.8-10.6)
[2018-07-01 11:06] LABS: Albumin 4.3 g/dL (3.5-5.0); Calcium 9.6 mg/dL (8.4-10.2); Magnesium 2.2 mg/dL (1.6-2.3); Potassium 5.5 mmol/L (3.5-5.1); Total Bilirubin 0.4 mg/dL (0.2-1.3); Total Protein 7.5 g/dL (6.3-8.2)
[2018-07-01 11:21] LABS: T4, Free (Free Thyroxine) 1.07 ng/dL (0.78-2.19)
[2018-07-01 12:21] LABS: Creatinine,Urine Random 40.1 mg/dL
[2018-07-01 16:07] LABS: Parathyroid Hormone Intact 62.3 pg/mL (14.0-72.0)
[2018-07-01 16:25] LABS: Iron Saturation 28.57 (12.00-45.00)
[2018-07-01 16:35] LABS: Vitamin D 25 Hydroxy 45.9 ng/mL (30.0-100.0)
[2018-07-01 19:12] LABS: Hemoglobin A1C 5.1 % (4.0-6.0)
== END | disposition home or self-care (01) ==
LOC: LABWHC1 10:19
PROVIDERS: ATTEND Internal Medicine Nephrology
DX: N18.9 Chronic kidney disease, unspecified (principal); D63.1 Anemia in chronic kidney disease; E16.2 Hypoglycemia, unspecified; E78.5 Hyperlipidemia, unspecified; R60.9 Edema, unspecified
CPT/HCPCS: 36415; 80053; 80061; 82306; 82570; 82728; 83036; 83540; 83550; 83735; 83970; 84156; 84439; 84443; 85025

== ENCOUNTER → 2018-09-08 | Outpatient (CLI) | payer MEDICARE, BC ==
[2018-09-08 17:19] LABS: Iron Saturation 24.73 (12.00-45.00)
[2018-09-08 17:27] LABS: Vitamin D 25 Hydroxy 43.4 ng/mL (30.0-100.0)
[2018-09-08 18:25] LABS: Parathyroid Hormone Intact 63.3 pg/mL (14.0-72.0)
[2018-09-08 18:36] LABS: Albumin 4.4 g/dL (3.80-4.90); Anion Gap 7.4 mmol/L (4.00-12.00); Calcium 9.9 mg/dL (8.7-10.3); Carbon Dioxide 28.6 mmol/L (21.6-31.8); Magnesium 1.9 mg/dL (1.5-2.4); Phosphorus 4.3 mg/dL (2.4-5.1); Potassium 4.8 mmol/L (3.5-5.5)
[2018-09-08 19:23] LABS: Creatinine,Urine Random 20.6 mg/dL
[2018-09-08 20:30] LABS: Total Protein,Urine Random 20.9 mg/dL (0.0-13.5)
== END | disposition home or self-care (01) ==
LOC: LABWHC1 10:32
PROVIDERS: ATTEND Internal Medicine Nephrology
DX: N18.3 Chronic kidney disease, stage 3 (moderate) (principal)
CPT/HCPCS: 36415; 80069; 82306; 82570; 82728; 83540; 83550; 83735; 83970; 84156

== ENCOUNTER → 2019-03-25 | Outpatient (CLI) | payer MEDICARE, BC ==
[2019-03-26 01:00] LABS: African American GFR (CKD) 33.6 (60.0-200.0); Albumin 4.1 g/dL (3.80-4.90); Anion Gap 7.7 mmol/L (4.00-12.00); BUN/Creat Ratio 19.41 Ratio (12.00-20.00); Calcium 9.5 mg/dL (8.7-10.3); Carbon Dioxide 28.3 mmol/L (21.6-31.8); Phosphorus 3.9 mg/dL (2.4-5.1); Potassium 4.8 mmol/L (3.5-5.5)
[2019-03-26 02:24] LABS: Creatinine,Urine Random 39.4 mg/dL
[2019-03-26 03:55] LABS: Total Protein,Urine Random 52.5 mg/dL (0.0-13.5)
== END | disposition home or self-care (01) ==
LOC: LABWHC1 14:19
PROVIDERS: ATTEND Internal Medicine Nephrology
DX: N18.3 Chronic kidney disease, stage 3 (moderate) (principal)
CPT/HCPCS: 36415; 80069; 82570; 84156

== ENCOUNTER → 2019-04-21 | Outpatient (CLI) | payer MEDICARE, BC ==
[2019-04-21 19:12] LABS: African American GFR (CKD) 29.2 (60.0-200.0); Albumin 4.2 g/dL (3.80-4.90); Anion Gap 8.9 mmol/L (4.00-12.00); BUN/Creat Ratio 21.58 Ratio (12.00-20.00); Calcium 9.5 mg/dL (8.7-10.3); Carbon Dioxide 26.1 mmol/L (21.6-31.8); Phosphorus 4.1 mg/dL (2.4-5.1); Potassium 5.8 mmol/L (3.5-5.5)
== END | disposition home or self-care (01) ==
LOC: LABWHC1 13:36
PROVIDERS: ATTEND Internal Medicine Nephrology
DX: N18.3 Chronic kidney disease, stage 3 (moderate) (principal); I12.9 Hypertensive chronic kidney disease with stage 1 through stage 4 chronic kidney disease, or unspecified chronic kidney disease
CPT/HCPCS: 36415; 80069

== ENCOUNTER → 2019-05-12 | Outpatient (CLI) | payer MEDICARE, BC ==
[2019-05-12 18:20] LABS: African American GFR (CKD) 38.8 (60.0-200.0); Albumin 4.4 g/dL (3.80-4.90); Anion Gap 5.3 mmol/L (4.00-12.00); BUN/Creat Ratio 24.67 Ratio (12.00-20.00); Calcium 9.7 mg/dL (8.7-10.3); Carbon Dioxide 28.7 mmol/L (21.6-31.8); Non-African American GFR(CKD) 33.5 (60.0-200.0); Phosphorus 4.2 mg/dL (2.4-5.1)
== END | disposition home or self-care (01) ==
LOC: LABWHC1 12:19
PROVIDERS: ATTEND Internal Medicine Nephrology
DX: E78.5 Hyperlipidemia, unspecified (principal); N18.3 Chronic kidney disease, stage 3 (moderate)
CPT/HCPCS: 36415; 80069

== ENCOUNTER → 2019-06-16 | Outpatient (CLI) | payer MEDICARE, BC ==
[2019-06-16 21:11] LABS: African American GFR (CKD) 42.2 (60.0-200.0); Albumin 4.1 g/dL (3.80-4.90); Anion Gap 5.2 mmol/L (4.00-12.00); BUN/Creat Ratio 22.14 Ratio (12.00-20.00); Calcium 9.3 mg/dL (8.7-10.3); Carbon Dioxide 27.8 mmol/L (21.6-31.8); Phosphorus 4.2 mg/dL (2.4-5.1); Potassium 5.2 mmol/L (3.5-5.5)
[2019-06-16 21:30] LABS: Creatinine,Urine Random 36.4 mg/dL
[2019-06-16 21:43] LABS: Total Protein,Urine Random 51.2 mg/dL (0.0-13.5)
== END | disposition home or self-care (01) ==
LOC: LABWHC1 14:02
PROVIDERS: ATTEND Internal Medicine Nephrology
DX: N18.3 Chronic kidney disease, stage 3 (moderate) (principal); I12.9 Hypertensive chronic kidney disease with stage 1 through stage 4 chronic kidney disease, or unspecified chronic kidney disease
CPT/HCPCS: 36415; 80069; 82570; 84156

== ENCOUNTER → 2019-10-02 | Outpatient (CLI) | payer MEDICARE, BC ==
[2019-10-02 18:11] LABS: African American GFR (CKD) 31.1 (60.0-200.0); Anion Gap 8.5 mmol/L (4.00-12.00); BUN/Creat Ratio 18.33 Ratio (12.00-20.00); Calcium 10.3 mg/dL (8.7-10.3); Carbon Dioxide 25.5 mmol/L (21.6-31.8); Non-African American GFR(CKD) 26.9 (60.0-200.0); Phosphorus 4.8 mg/dL (2.4-5.1); Potassium 5.4 mmol/L (3.5-5.5)
== END | disposition home or self-care (01) ==
LOC: LABWHC1 11:02
PROVIDERS: ATTEND Internal Medicine Nephrology
DX: N18.3 Chronic kidney disease, stage 3 (moderate) (principal)
CPT/HCPCS: 36415; 80069

== ENCOUNTER → 2019-10-15 | Outpatient (CLI) | payer MEDICARE, BC ==
[2019-10-16 00:59] LABS: African American GFR (CKD) 27.4 (60.0-200.0); Albumin 3.9 g/dL (3.80-4.90); Anion Gap 10.8 mmol/L (4.00-12.00); Calcium 9.8 mg/dL (8.7-10.3); Carbon Dioxide 25.2 mmol/L (21.6-31.8); Non-African American GFR(CKD) 23.7 (60.0-200.0)
== END | disposition home or self-care (01) ==
LOC: LABWHC1 15:28
PROVIDERS: ATTEND Internal Medicine Nephrology
DX: N18.3 Chronic kidney disease, stage 3 (moderate) (principal)
CPT/HCPCS: 36415; 80069

== ENCOUNTER 2020-02-25 23:30 | Inpatient (IN) | payer MEDICARE, BC ==
[2020-02-25] MEDS ORDERED: PANTOPRAZOLE 40 MG/10 ML VIAL IVP STA (23:35)
[2020-02-25] MEDS ORDERED: ONDANSETRON 4 MG/2 ML VIAL IVP STA (23:35)
[2020-02-25] MEDS ORDERED: SODIUM CHLORIDE 0.9% 500 ML 500 ML IV STA (23:35)
[2020-02-25] MEDS ORDERED: SODIUM CHLORIDE 0.9% 1,000 ML IV STA (23:35)
[2020-02-26 00:11] LABS: Anisocytosis Slight; Basophils % (A) 1 %; Eosinophils # (A) 0.1 k/uL (0-0.7); Eosinophils % (A) 2 %; Lymphocytes # (A) 1.1 k/uL (1.0-4.8); Lymphocytes % (A) 20 %; MCH 31.3 pg (25.0-35.0); MCHC 32.2 g/dL (31.0-37.0); MCV 97.3 fL (80.0-100.0); Macrocytosis Slight; Mean Platelet Volume 7.2; Monocytes # (A) 0.5 k/uL (0-1.0); Monocytes % (A) 9 %; Neutrophils # (A) 3.6 k/uL (1.3-7.7); Neutrophils % (A) 65 %; Platelet Count 300 k/uL (150-450); RBC 1.91 m/uL (3.80-5.40); RDW 16.9 % (11.5-15.5); WBC 5.6 k/uL (3.8-10.6)
--- NOTE | 2020-02-26 00:18 | ED ---
GI Bleed HPI - General Chief complaint: GI Bleed Stated complaint: GI Bleed Time Seen by Provider: 02/25/20 23:34 Source: patient, EMS, RN notes reviewed, old records reviewed Mode of arrival: EMS Limitations: no limitations - History of Present Illness complaint: coffee ground emesis, melena -: days(s) Radiation: none Severity scale (1-10): 7 Quality: painless Consistency: constant Improves with: none Worsens with: none Context: history of GI bleed Associated Symptoms: nausea, vomiting, loss of appetite, weakness - Related Data Home Medications Medication Instructions Recorded Confirmed ALPRAZolam [Xanax] 0.125 - 0.25 mg PO Q8H PRN 03/01/14 10/14/19 FLUoxetine HCL 40 mg PO DAILY 03/01/14 10/14/19 Furosemide 20 mg PO DAILY 03/01/14 10/14/19 Atorvastatin [Lipitor] 10 mg PO HS 02/23/17 10/14/19 Felodipine ER [Plendil] 10 mg PO DAILY 02/23/17 10/14/19 Metoprolol Tartrate [Lopressor] 50 mg PO BID 02/23/17 10/14/19 Ferrous Sulfate [Iron (65 MG 325 mg PO DAILY 02/24/17 10/14/19 Elemental)] Magnesium Oxide [Mag-Ox] 250 mg PO DAILY 02/24/17 10/14/19 Calcifediol [Rayaldee] 30 mcg PO WEEKLY 03/31/18 10/14/19 Lisinopril [Zestril] 2.5 mg PO DAILY 05/06/19 10/14/19 Allergies Allergy/AdvReac Type Severity Reaction Status Date / Time celecoxib [From Celebrex] Allergy Rash/Hives Verified 02/26/20 01:51 nitrofurantoin Allergy Swelling Verified 02/26/20 01:51 [From Macrobid] nitrofurantoin Allergy Swelling Verified 02/26/20 01:51 macrocrystalline [From Macrobid] sulfamethoxazole Allergy Swelling Verified 02/26/20 01:51 [From Bactrim] trimethoprim [From Bactrim] Allergy Swelling Verified 02/26/20 01:51 Review of Systems ROS Statement: Those systems with pertinent positive or pertinent negative responses have been documented in the HPI. ROS Other: All systems not noted in ROS Statement are negative. Past Medical History Past Medical History: Eye Disorder, GI Bleed, Hyperlipidemia, Hypertension, Musculoskeletal Disorder, Osteoarthritis (OA), Renal Disease Additional Past Medical History / Comment(s): Chronic anemia, iron deficiency, chronic kidney disease stage III, diverticular disease, hyperlipidemia, osteoarthritis, osteoporosis, hypoglycemia, gout, chronic alcohol use and dependence. History of Any Multi-Drug Resistant Organisms: None Reported Past Surgical History: Orthopedic Surgery, Tonsillectomy, Tubal Ligation Additional Past Surgical History / Comment(s): removal ovary, bilateral cararact removal with lens implant; cervical spinal fusion Past Anesthesia/Blood Transfusion Reactions: No Reported Reaction Past Psychological History: Anxiety Smoking Status: Former smoker Past Alcohol Use History: Occasional Past Drug Use History: None Reported - Past Family History Mother Family Medical History: Osteoarthritis (OA) Sister(s) Family Medical History: Cancer Additional Family Medical History / Comment(s): breast cancer Father Family Medical History: No Reported History Brother(s) Family Medical History: Osteoarthritis (OA) Daughter(s) Family Medical History: No Reported History Son(s) Family Medical History: No Reported History General Exam Limitations: no limitations General appearance: alert, in no apparent distress Head exam: Present: atraumatic, normocephalic, normal inspection Eye exam: Present: normal appearance, PERRL, EOMI. Absent: scleral icterus, conjunctival injection, periorbital swelling ENT exam: Present: normal exam, mucous membranes moist Neck exam: Present: normal inspection. Absent: tenderness, meningismus, lymphadenopathy Respiratory exam: Present: normal lung sounds bilaterally. Absent: respiratory distress, wheezes, rales, rhonchi, stridor Cardiovascular Exam: Present: regular rate, normal rhythm, normal heart sounds. Absent: systolic murmur, diastolic murmur, rubs, gallop, clicks GI/Abdominal exam: Present: soft, normal bowel sounds. Absent: distended, tenderness, guarding, rebound, rigid Extremities exam: Present: normal inspection, full ROM, normal capillary refill. Absent: tenderness, pedal edema, joint swelling, calf tenderness Back exam: Present: normal inspection Neurological exam: Present: alert, oriented X3, CN II-XII intact Psychiatric exam: Present: normal affect, normal mood Skin exam: Present: warm, dry, intact, normal color. Absent: rash Course Vital Signs 05/15/20 05/16/20 05/16/20 23:34 00:46 01:41 Temperature 97.8 F 97.4 F L 97.9 F Pulse Rate 75 75 73 Respiratory 17 18 16 Rate Blood Pressure 141/76 131/60 126/61 O2 Sat by Pulse 99 100 98 Oximetry Medical Decision Making - Lab Data Result diagrams: 02/25/20 23:48 02/25/20 23:48 Lab Results 02/25/20 02/25/20 02/25/20 Range/Units 23:48 23:48 23:48 WBC 5.6 (3.8-10.6) k/uL RBC 1.91 L (3.80-5.40) m/uL Hgb 6.0 L* (11.4-16.0) gm/dL Hct 18.6 L* (34.0-46.0) % MCV 97.3 (80.0-100.0) fL MCH 31.3 (25.0-35.0) pg MCHC 32.2 (31.0-37.0) g/dL RDW 16.9 H (11.5-15.5) % Plt Count 300 (150-450) k/uL Neutrophils % 65 % Lymphocytes % 20 % Monocytes % 9 % Eosinophils % 2 % Basophils % 1 % Neutrophils # 3.6 (1.3-7.7) k/uL Lymphocytes # 1.1 (1.0-4.8) k/uL Monocytes # 0.5 (0-1.0) k/uL Eosinophils # 0.1 (0-0.7) k/uL Basophils # 0.0 (0-0.2) k/uL Anisocytosis Slight Macrocytosis Slight PT 9.6 (9.0-12.0) sec INR 0.9 (<1.2) APTT 20.4 L (22.0-30.0) sec Sodium 128 L (137-145) mmol/L Potassium 4.2 (3.5-5.1) mmol/L Chloride 96 L (98-107) mmol/L Carbon Dioxide 22 (22-30) mmol/L Anion Gap 10 mmol/L BUN 111 H* (7-17) mg/dL Creatinine 1.74 H (0.52-1.04) mg/dL Est GFR (CKD-EPI)AfAm 32 (>60 ml/min/1.73 sqM) Est GFR (CKD-EPI)NonAf 28 (>60 ml/min/1.73 sqM) Glucose 116 H (74-99) mg/dL Plasma Lactic Acid Omar (0.7-2.0) mmol/L Calcium 10.2 (8.4-10.2) mg/dL Magnesium 2.5 H (1.6-2.3) mg/dL Total Bilirubin 0.1 L (0.2-1.3) mg/dL AST 30 (14-36) U/L ALT 13 (4-34) U/L Alkaline Phosphatase 59 (38-126) U/L Troponin I (0.000-0.034) ng/mL Total Protein 6.5 (6.3-8.2) g/dL Albumin 3.5 (3.5-5.0) g/dL Lipase 470 H (23-300) U/L Blood Type Blood Type Recheck Bld Type Recheck Status Antibody Screen Crossmatch Spec Expiration Date 02/25/20 02/25/20 02/25/20 Range/Units 23:48 23:48 23:48 WBC (3.8-10.6) k/uL RBC (3.80-5.40) m/uL Hgb (11.4-16.0) gm/dL Hct (34.0-46.0) % MCV (80.0-100.0) fL MCH (25.0-35.0) pg MCHC (31.0-37.0) g/dL RDW (11.5-15.5) % Plt Count (150-450) k/uL Neutrophils % % Lymphocytes % % Monocytes % % Eosinophils % % Basophils % % Neutrophils # (1.3-7.7) k/uL Lymphocytes # (1.0-4.8) k/uL Monocytes # (0-1.0) k/uL Eosinophils # (0-0.7) k/uL Basophils # (0-0.2) k/uL Anisocytosis Macrocytosis PT (9.0-12.0) sec INR (<1.2) APTT (22.0-30.0) sec Sodium (137-145) mmol/L Potassium (3.5-5.1) mmol/L Chloride (98-107) mmol/L Carbon Dioxide (22-30) mmol/L Anion Gap mmol/L BUN (7-17) mg/dL Creatinine (0.52-1.04) mg/dL Est GFR (CKD-EPI)AfAm (>60 ml/min/1.73 sqM) Est GFR (CKD-EPI)NonAf (>60 ml/min/1.73 sqM) Glucose (74-99) mg/dL Plasma Lactic Acid Omar 0.8 (0.7-2.0) mmol/L Calcium (8.4-10.2) mg/dL Magnesium (1.6-2.3) mg/dL Total Bilirubin (0.2-1.3) mg/dL AST (14-36) U/L ALT (4-34) U/L Alkaline Phosphatase (38-126) U/L Troponin I <0.012 (0.000-0.034) ng/mL Total Protein (6.3-8.2) g/dL Albumin (3.5-5.0) g/dL Lipase (23-300) U/L Blood Type O Positive Blood Type Recheck O Pos Bld Type Recheck Status No Antibody Screen NEGATIVE Crossmatch See Detail Spec Expiration Date 02/28/2020 - 7216 - EKG Data -: EKG Interpreted by Me (EKG shows NSR 74 VT 162 QRS 106 QTc 457) Disposition Clinical Impression: GIB (gastrointestinal bleeding), Anemia, Acute upper GI bleed, Acute blood loss anemia Disposition: ADMITTED IP TO THIS HOSP Condition: Fair Is patient prescribed a controlled substance at d/c from ED?: No
[2020-02-26 00:20] LABS: HCT 18.6 % (34.0-46.0)
[2020-02-26 00:27] LABS: Albumin 3.5 g/dL (3.5-5.0); Calcium 10.2 mg/dL (8.4-10.2); Magnesium 2.5 mg/dL (1.6-2.3); Potassium 4.2 mmol/L (3.5-5.1); Total Bilirubin 0.1 mg/dL (0.2-1.3); Total Protein 6.5 g/dL (6.3-8.2)
[2020-02-26 00:28] LABS: INR 0.9 (<1.2); Prothrombin Time 9.6 sec (9.0-12.0)
[2020-02-26 00:31] LABS: Partial Thromboplastin Time 20.4 sec (22.0-30.0)
[2020-02-26] MEDS ORDERED: NALOXONE 0.4 MG/ML 1 ML VIAL IV PRN (01:25)
[2020-02-26] MEDS ORDERED: MORPHINE SULFATE 4 MG/ML SYRINGE IV PRN (01:25)
[2020-02-26] MEDS: SODIUM CHLORIDE 0.9% 1,000 ML IV SCH ×3 (03:01→20:13)
[2020-02-26] MEDS: PANTOPRAZOLE 40 MG/10 ML VIAL IV SCH ×2 (09:12→20:13)
[2020-02-26] MEDS: FLUoxetine HCL 20 MG CAP PO SCH (09:59)
[2020-02-26] MEDS: METOPROLOL TARTRATE 50 MG TAB PO SCH ×2 (09:59→20:13)
[2020-02-26] MEDS: MAGNESIUM OXIDE 400 MG TAB PO SCH (10:00)
[2020-02-26] MEDS: amLODIPine 10 MG TAB PO SCH (10:00)
--- NOTE | 2020-02-26 10:03 | P.HPIM ---
History of Present Illness H&P Date: 02/26/20 This is a 74-year-old pleasant female patient of Dr. Baez with a past medical history significant for chronic anemia, stage IV chronic kidney disease, iron deficiency, diverticular low cyst, hyperlipidemia, osteoarthritis, osteoporosis. Patient is a former smoker she drinks approximately 3-4 vodka drinks on the weekend in one to 2 during the week. The patient returned home from [place] with her . She and her drove 10 hours stayed overnight and drove 10 more hours arriving on Friday to [place]. On the patient noticed black tarry stools. Patient complains of nausea and vomiting. The nausea and vomiting has been chronic while in [place] she seen a manager salt who was setting her up for a upper and lower endoscopy. Due to the covid 19, patient was unable to have the test done while in [place]. Patient presented to the emergency room with coffee-ground emesis and black tarry stools for 2 days. Patient is also complaining of nausea vomiting and loss of appetite and weakness. Patient was found to have a hemoglobin of 6.0. BUN 111 most likely due to the acute blood loss, creatinine 1.74. Patient denied any syncope. Patient was complaining of a headache which she took aspirin yesterday prior to arrival to the emergency room. While in [place] patient did receive Procrit. Review of Systems Review Of Systems: Constitutional: No fever, no chills, no night sweats. No weight change. Report weakness, reports fatigue no lethargy. No daytime sleepiness. EENT: Reports headache. No blurred vision or double vision, no loss of vision. No loss of Hearing, no ringing in the ears, no dizziness. No nasal drainage or congestion. No epistaxis. No sore throat. Lungs: No shortness of breath, cough, no sputum production. No wheezing. Cardiovascular: No chest pain, no lower extremity edema. No palpitations. No paroxysmal nocturnal dyspnea. No orthopnea. No lightheadedness or dizziness. No syncopal episodes. Abdominal: no abdominal discomfort. Report nausea and vomiting with coffee ground emesis. no diarrhea. No constipation. Reports tarry stools no bright red blood. Report loss of appetite. Genitourinary: No dysuria, increased frequency, urgency. No urinary retention. Musculoskeletal: No myalgias. No muscle weakness, no gait dysfunction, no frequent falls. No back pain. No neck pain. Integumentary: No wounds, no lesions. No rash or pruritus. No unusual bruising. No change in hair or nails. Neurologic: No aphasia. No facial droop. No change in mentation. No head injury. No headache. No paralysis. No paresthesia. Psychiatric: No depression. Reports anxiety. No mood swings. Endocrine: No abnormal blood sugars. No weight change. No excessive sweating or thirst. Past Medical History Past Medical History: Eye Disorder, GI Bleed, Hyperlipidemia, Hypertension, Musculoskeletal Disorder, Osteoarthritis (OA), Renal Disease Additional Past Medical History / Comment(s): Chronic anemia, iron deficiency, chronic kidney disease stage III, diverticular disease, hyperlipidemia, osteoarthritis, osteoporosis, hypoglycemia, gout, chronic alcohol use and dependence. History of Any Multi-Drug Resistant Organisms: None Reported Past Surgical History: Orthopedic Surgery, Tonsillectomy, Tubal Ligation Additional Past Surgical History / Comment(s): removal ovary, bilateral cararact removal with lens implant; cervical spinal fusion Past Anesthesia/Blood Transfusion Reactions: No Reported Reaction Past Psychological History: Anxiety Smoking Status: Former smoker Past Alcohol Use History: Occasional Past Drug Use History: None Reported - Past Family History Mother Family Medical History: Osteoarthritis (OA) Sister(s) Family Medical History: Cancer Additional Family Medical History / Comment(s): breast cancer Father Family Medical History: No Reported History Brother(s) Family Medical History: Osteoarthritis (OA) Daughter(s) Family Medical History: No Reported History Son(s) Family Medical History: No Reported History Medications and Allergies Home Medications Medication Instructions Recorded Confirmed Type ALPRAZolam [Xanax] 0.125 - 0.25 mg PO Q8H PRN 03/01/14 10/14/19 History FLUoxetine HCL 40 mg PO DAILY 03/01/14 10/14/19 History Furosemide 20 mg PO DAILY 03/01/14 10/14/19 History Atorvastatin [Lipitor] 10 mg PO HS 02/23/17 10/14/19 History Felodipine ER [Plendil] 10 mg PO DAILY 02/23/17 10/14/19 History Metoprolol Tartrate [Lopressor] 50 mg PO BID 02/23/17 10/14/19 History Ferrous Sulfate [Iron (65 MG 325 mg PO DAILY 02/24/17 10/14/19 History Elemental)] Magnesium Oxide [Mag-Ox] 250 mg PO DAILY 02/24/17 10/14/19 History Calcifediol [Rayaldee] 30 mcg PO WEEKLY 03/31/18 10/14/19 History Lisinopril [Zestril] 2.5 mg PO DAILY 05/06/19 10/14/19 History Allergies Allergy/AdvReac Type Severity Reaction Status Date / Time celecoxib [From Celebrex] Allergy Rash/Hives Verified 02/26/20 01:51 nitrofurantoin Allergy Swelling Verified 02/26/20 01:51 [From Macrobid] nitrofurantoin Allergy Swelling Verified 02/26/20 01:51 macrocrystalline [From Macrobid] sulfamethoxazole Allergy Swelling Verified 02/26/20 01:51 [From Bactrim] trimethoprim [From Bactrim] Allergy Swelling Verified 02/26/20 01:51 Physical Exam Vitals: Vital Signs Temp Pulse Pulse Resp BP BP Pulse Ox 02/26/20 09:08 98 F 72 16 167/77 99 02/26/20 08:00 98.2 F 72 16 160/72 99 02/26/20 06:26 97.9 F 70 16 164/71 96 02/26/20 05:56 98.0 F 73 16 145/70 98 02/26/20 05:46 98.2 F 77 17 136/70 96 02/26/20 05:33 98.2 F 72 16 146/69 99 02/26/20 03:31 98.3 F 69 16 129/65 98 02/26/20 03:01 98.0 F 70 16 125/60 96 02/26/20 02:51 98.0 F 74 16 127/65 97 02/26/20 02:26 98.1 F 79 16 135/47 98 02/26/20 01:41 97.9 F 73 16 126/61 98 02/26/20 00:46 97.4 F L 75 18 131/60 100 02/25/20 23:34 97.8 F 75 17 141/76 99 Intake and Output 02/25/20 02/26/20 02/26/20 22:59 06:59 14:59 Intake Total 610 310 Balance 610 310 Intake: Intake, IV Titration 300 Amount Sodium Chloride 0.9% 1, 300 000 ml @ 100 mls/hr IV . Q10H [facility] Rx#:[id number] Blood Product 310 310 Rc As-1 Unit 0 310 [id number] Rc As-1 Unit 310 [id number] Other: # Voids 1 Weight 51.1 kg General Appearance: Alert, cooperative, moderate distress, appears stated age. Neck HEENT: Supple, no lymphadenopathy, no thyroid enlargement, no carotid bruits. Lungs: Clear to auscultation without crackles or wheezes no rhonchi, no deformity. Chest Wall: Chest wall normal expansion with deep inspiration no tenderness and no deformity was found on exam, no costochondral pain or discomfort. Heart: Regular rate and rhythm, S1, S2 normal, no murmur, rub or gallop. Back: Symmetric, no curvature, ROM normal, no CVA tenderness. Abdomen: Soft, non-tender, no rebound or rigidity, no hepatosplenomegaly. Extremities: Extremities normal, atraumatic, no cyanosis or edema. Pulses: 2+ and symmetric. Skin: Skin color, texture, tugor normal, no rashes or lesions. Neurologic: Alert oriented x3 cranial nerves II through XII intact, no motor deficit, no abnormal balance or gait Results CBC & Chem 7: 02/25/20 23:48 02/25/20 23:48 Labs: Abnormal Lab Results - Last 24 Hours (Table) 02/25/20 02/25/20 02/25/20 Range/Units 23:48 23:48 23:48 RBC 1.91 L (3.80-5.40) m/uL Hgb 6.0 L* (11.4-16.0) gm/dL Hct 18.6 L* (34.0-46.0) % RDW 16.9 H (11.5-15.5) % APTT 20.4 L (22.0-30.0) sec Sodium 128 L (137-145) mmol/L Chloride 96 L (98-107) mmol/L BUN 111 H* (7-17) mg/dL Creatinine 1.74 H (0.52-1.04) mg/dL Glucose 116 H (74-99) mg/dL Magnesium 2.5 H (1.6-2.3) mg/dL Total Bilirubin 0.1 L (0.2-1.3) mg/dL Lipase 470 H (23-300) U/L Crossmatch 02/25/20 Range/Units 23:48 RBC (3.80-5.40) m/uL Hgb (11.4-16.0) gm/dL Hct (34.0-46.0) % RDW (11.5-15.5) % APTT (22.0-30.0) sec Sodium (137-145) mmol/L Chloride (98-107) mmol/L BUN (7-17) mg/dL Creatinine (0.52-1.04) mg/dL Glucose (74-99) mg/dL Magnesium (1.6-2.3) mg/dL Total Bilirubin (0.2-1.3) mg/dL Lipase (23-300) U/L Crossmatch See Detail Thrombosis Risk Factor Assmnt - Choose All That Apply Other Risk Factors: Yes Each Risk Factor Represents 3 Points: Age 75 years or older Thrombosis Risk Factor Assessment Total Risk Factor Score: 3 Thrombosis Risk Factor Assessment Level: Moderate Risk Assessment and Plan Plan: 1. Acute GI bleed with acute blood loss anemia most likely upper gastric bleed possible AV M. GI consult, continue Protonix 40 mg twice a day, continue nothing by mouth until evaluated by GI, 2 units of packed red blood cells transfused, continue to monitor H&H. Consideration for a upper and lower endoscopy due to patient's history of chronic kidney disease and inability to complete lower GI prep at home. If negative results with endoscopy consideration for capsule endoscopy. 2. Acute blood loss anemia. As noted above 3. Chronic anemia. Recent Procrit 4. Chronic kidney disease stage IV. Continue to monitor kidney function 5. Hyperlipidemia. Atorvastatin 10 mg by mouth at bedtime 6. Hypertension. Continue amlodipine 10 mg, metoprolol 50 mg twice a day 7. Anxiety. Continue Xanax as needed 0.25 mg every 8 hours, fluoxetine 40 mg by mouth daily 8. COVID-19 infection pending 9. GI prophylaxis. Protonix 10. DVT prophylaxis. SCDs ambulation Patient will be admitted to the hospital for minimum of 2 nights day. Discharge plan: Return home. CODE STATUS: Full code Impression and plan of care have been directed as dictated by the signing physician. Maye Vanessa nurse practitioner acting as scribe for signing physician.
--- NOTE | 2020-02-26 11:43 | P.CNPUL ---
History of Present Illness Consult date: 02/26/20 Chief complaint: Generalized weakness and anemia History of present illness: 74-year-old female patient who is known to me from previous admissions as I see the patient back in 2017 after she came in to our intensive care unit for a GI bleed. The patient came into the hospital yesterday as she was feeling weak and she has had 2 melanotic stool and a emesis or she has noticed some groundglass material. She was getting tired and fatigued and she was admitted to the hospital because of an upper GI bleed. She arrived from [place] few days back and she was doing well. She drinks alcohol. She doesn't take any form of nonsteroidal anti-inflammatory medication patient is known to have chronic kidney disease stage III disease along with hypertension and chronic anxiety and depression. Based on her previous evaluation, the patient had a EGD did back in 2017 showed mild antral and antral ulcers with some white exudate and there was no active bleeding back then. She also has a small sliding hiatal hernia. The patient had no malignancy. Her H. pylori status was negative. During this current admission, the patient's hemoglobin was down to 6 and the patient is currently receiving her second unit of packed RBC pending for a blood levels of hemoglobin. Correlation profile is essentially within normal levels with normal PT PT/INR INR. Bilirubin is at 0.1. Sodium level is at 128. Review of Systems All systems: negative Constitutional: Denies chills, Denies fever Eyes: denies blurred vision, denies pain Ears, nose, mouth and throat: Denies headache, Denies sore throat Cardiovascular: Denies chest pain, Denies shortness of breath Respiratory: Denies cough Gastrointestinal: Reports coffee ground emesis, Reports nausea, Reports vomiting Genitourinary: Denies dysuria, Denies hematuria Musculoskeletal: Denies myalgias, overall generalized weakness Integumentary: Denies pruritus, Denies rash Neurological: Denies numbness, generalized weakness Psychiatric: Denies anxiety, Denies depression Endocrine: Denies fatigue, Denies weight change Past Medical History Past Medical History: Eye Disorder, GI Bleed, Hyperlipidemia, Hypertension, Musculoskeletal Disorder, Osteoarthritis (OA), Renal Disease Additional Past Medical History / Comment(s): Chronic anemia, iron deficiency, chronic kidney disease stage III, diverticular disease, hyperlipidemia, osteoarthritis, osteoporosis, hypoglycemia, gout, chronic alcohol use and dependence. History of Any Multi-Drug Resistant Organisms: None Reported Past Surgical History: Orthopedic Surgery, Tonsillectomy, Tubal Ligation Additional Past Surgical History / Comment(s): removal ovary, bilateral cararact removal with lens implant; cervical spinal fusion Past Anesthesia/Blood Transfusion Reactions: No Reported Reaction Past Psychological History: Anxiety Smoking Status: Former smoker Past Alcohol Use History: Occasional Past Drug Use History: None Reported - Past Family History Mother Family Medical History: Osteoarthritis (OA) Sister(s) Family Medical History: Cancer Additional Family Medical History / Comment(s): breast cancer Father Family Medical History: No Reported History Brother(s) Family Medical History: Osteoarthritis (OA) Daughter(s) Family Medical History: No Reported History Son(s) Family Medical History: No Reported History Medications and Allergies Home Medications Medication Instructions Recorded Confirmed Type ALPRAZolam [Xanax] 0.125 - 0.25 mg PO Q8H PRN 03/01/14 10/14/19 History FLUoxetine HCL 40 mg PO DAILY 03/01/14 10/14/19 History Furosemide 20 mg PO DAILY 03/01/14 10/14/19 History Atorvastatin [Lipitor] 10 mg PO HS 02/23/17 10/14/19 History Felodipine ER [Plendil] 10 mg PO DAILY 02/23/17 10/14/19 History Metoprolol Tartrate [Lopressor] 50 mg PO BID 02/23/17 10/14/19 History Ferrous Sulfate [Iron (65 MG 325 mg PO DAILY 02/24/17 10/14/19 History Elemental)] Magnesium Oxide [Mag-Ox] 250 mg PO DAILY 02/24/17 10/14/19 History Calcifediol [Rayaldee] 30 mcg PO WEEKLY 03/31/18 10/14/19 History Lisinopril [Zestril] 2.5 mg PO DAILY 05/06/19 10/14/19 History Allergies Allergy/AdvReac Type Severity Reaction Status Date / Time celecoxib [From Celebrex] Allergy Rash/Hives Verified 02/26/20 01:51 nitrofurantoin Allergy Swelling Verified 02/26/20 01:51 [From Macrobid] nitrofurantoin Allergy Swelling Verified 02/26/20 01:51 macrocrystalline [From Macrobid] sulfamethoxazole Allergy Swelling Verified 02/26/20 01:51 [From Bactrim] trimethoprim [From Bactrim] Allergy Swelling Verified 02/26/20 01:51 Physical Exam Vitals: Vital Signs Temp Pulse Pulse Resp BP BP Pulse Ox 02/26/20 09:08 98 F 72 16 167/77 99 02/26/20 08:00 98.2 F 72 16 160/72 99 02/26/20 06:26 97.9 F 70 16 164/71 96 02/26/20 05:56 98.0 F 73 16 145/70 98 02/26/20 05:46 98.2 F 77 17 136/70 96 02/26/20 05:33 98.2 F 72 16 146/69 99 02/26/20 03:31 98.3 F 69 16 129/65 98 02/26/20 03:01 98.0 F 70 16 125/60 96 02/26/20 02:51 98.0 F 74 16 127/65 97 02/26/20 02:26 98.1 F 79 16 135/47 98 02/26/20 01:41 97.9 F 73 16 126/61 98 02/26/20 00:46 97.4 F L 75 18 131/60 100 02/25/20 23:34 97.8 F 75 17 141/76 99 Intake and Output 02/25/20 02/26/20 02/26/20 22:59 06:59 14:59 Intake Total 610 310 Balance 610 310 Intake: Intake, IV Titration 300 Amount Sodium Chloride 0.9% 1, 300 000 ml @ 100 mls/hr IV . Q10H [facility] Rx#:[id number] Blood Product 310 310 As-1 Unit 0 310 [id number] As-1 Unit 310 [id number] Other: # Voids 1 Weight 51.1 kg The patient appeared well nourished and normally developed. Vital signs as documented. Head exam is unremarkable. No scleral icterus or corneal arcus noted. Neck is without jugular venous distension, thyromegaly, or carotid br uits. Carotid upstrokes are brisk bilaterally. Lungs are clear to auscultation and percussion. Cardiac exam reveals the PMI to be normally sized and situated. Rhythm is regular. First and second heart sounds normal. No murmurs, rubs or gallops. Abdominal exam reveals normal bowel sounds, no masses, no organomegaly and no aortic enlargement. Extremities are nonedematous and both femoral and pedal pulses are normal.Examination of the skin revealed no evidence of significant rashes, suspicious appearing nevi or other concerning lesions. Neurologically the patient is awake and alert and there is no focal neurological deficit. Results - Laboratory Findings CBC and BMP: 02/25/20 23:48 02/25/20 23:48 PT/INR, D-dimer PT 9.6 sec (9.0-12.0) 02/25/20 23:48 INR 0.9 (<1.2) 02/25/20 23:48 Abnormal lab findings: Abnormal Labs 02/25/20 02/25/20 02/25/20 23:48 23:48 23:48 RBC 1.91 L Hgb 6.0 L* Hct 18.6 L* RDW 16.9 H APTT 20.4 L Sodium 128 L Chloride 96 L BUN 111 H* Creatinine 1.74 H Glucose 116 H Magnesium 2.5 H Total Bilirubin 0.1 L Lipase 470 H Crossmatch 02/25/20 23:48 RBC Hgb Hct RDW APTT Sodium Chloride BUN Creatinine Glucose Magnesium Total Bilirubin Lipase Crossmatch See Detail Assessment and Plan Plan: 1 upper GI bleeding. The patient is known to have chronic gastritis and antral ulcers based on a previous EGD that was done 2016. Currently she is having melanotic stools and coffee-ground emesis in hemoglobin dropped down to 6. Consider alcoholic gastritis, as the patient has a negative H. pylori status. Coagulation profile is within normal limits and the patient has not had any further episodes of bleeding since yesterday. 2 profound anemia with hemoglobin of 6.0 secondary to above, receiving 2 units of packed RBC transfusion 3 acute kidney injury on top of stage III chronic renal failure, improving and the creatinine is down to 1.7 4 stage III chronic kidney failure 5 hypertension 6 hyperlipidemia 7 mild diverticulosis based on the previous colonoscopies in 2013 9 alcohol ingestion 10 mild component of pancreatitis, without any significant abdominal pain. Liver function tests are within normal limits Plan Keep nothing by mouth for now IV Protonix Monitor hemoglobin and repeat a hemoglobin after giving 2 units of packed RBC Patient has received IV fluids and the patient is receiving 100 mL an hour GI consultation No need for ICU transfer this point in time. She is hemodynamically stable.
[2020-02-26] MEDS ORDERED: ONDANSETRON 4 MG/2 ML VIAL IVP PRN (13:33)
[2020-02-26] MEDS: ALPRAZolam 0.25 MG TAB PO PRN (15:38)
--- NOTE | 2020-02-26 16:55 | P.CONS ---
History of Present Illness - Reason for Consult Consult date: 02/26/20 Anemia, GI bleed Requesting physician: Justin Kumar - Chief Complaint GI bleed - History of Present Illness 74-year-old female with multiple medical comorbidities including chronic kidney disease, chronic anemia, iron deficiency, diverticular disease, hyperlipidemia, osteoarthritis, prior history of peptic ulcer disease who presents to the hospital due to vomiting, coffee-ground emesis and melena. The patient reports one episode of coffee-ground emesis. Denies any gross bleeding with the vomitus. No further episodes however she has had 2 further episodes of melena since that time. The patient does have a history of peptic ulcer disease diagnosed in February 2017 when the patient presented with similar complaints and was found to have antral ulcers. Last colonoscopy in 03/2014 in evaluation of anemia with findings of diverticular disease. Patient reports currently drinking 8-10 alcoholic beverages per week. Currently denying any abdominal pain. Patient was found to be severely anemic on presentation with a hemoglobin of 6. She is status post 2 units of packed red blood cells with repeat hemoglobin pending. Review of Systems REVIEW OF SYSTEMS: CONSTITUTIONAL: Denies any fevers, chills, weight change or fatigue. CARDIOVASCULAR: Denies any chest pain, palpitations high or low blood pressures RESPIRATORY: Denies any shortness of breath, hemoptysis or cough. GENITOURINARY: No dysuria or hematuria. MUSCULOSKELETAL: No weakness reported. SKIN: Denies any new rashes or lesions, jaundice or pallor. PSYCHIATRIC: Denies any depression or anxiety. NEUROLOGY: Denies headache, denies any new focal deficits. EARS/NOSE/THROAT: No recent hearing change, congestion, nasal discharge or sore throat. EYES: No pain in eyes, discharge or change in vision. GASTROINTESTINAL: As per HPI. Past Medical History Past Medical History: Eye Disorder, GI Bleed, Hyperlipidemia, Hypertension, Musculoskeletal Disorder, Osteoarthritis (OA), Renal Disease Additional Past Medical History / Comment(s): Chronic anemia, iron deficiency, chronic kidney disease stage III, diverticular disease, hyperlipidemia, osteoarthritis, osteoporosis, hypoglycemia, gout, chronic alcohol use and dependence. History of Any Multi-Drug Resistant Organisms: None Reported Past Surgical History: Orthopedic Surgery, Tonsillectomy, Tubal Ligation Additional Past Surgical History / Comment(s): removal ovary, bilateral cararact removal with lens implant; cervical spinal fusion Past Anesthesia/Blood Transfusion Reactions: No Reported Reaction Past Psychological History: Anxiety Smoking Status: Former smoker Past Alcohol Use History: Occasional Past Drug Use History: None Reported - Past Family History Mother Family Medical History: Osteoarthritis (OA) Sister(s) Family Medical History: Cancer Additional Family Medical History / Comment(s): breast cancer Father Family Medical History: No Reported History Brother(s) Family Medical History: Osteoarthritis (OA) Daughter(s) Family Medical History: No Reported History Son(s) Family Medical History: No Reported History Medications and Allergies Home Medications Medication Instructions Recorded Confirmed Type FLUoxetine HCL 40 mg PO DAILY 03/01/14 02/26/20 History Furosemide 20 mg PO DAILY 03/01/14 02/26/20 History Atorvastatin [Lipitor] 10 mg PO HS 02/23/17 02/26/20 History Metoprolol Tartrate [Lopressor] 50 mg PO BID 02/23/17 02/26/20 History Magnesium Oxide [Mag-Ox] 250 mg PO HS 02/24/17 02/26/20 History Lisinopril [Zestril] 2.5 mg PO DAILY 05/06/19 02/26/20 History Aspirin EC [Ecotrin Low Dose] 81 mg PO DAILY 02/26/20 02/26/20 History Calcitriol 0.25 mcg PO DAILY 02/26/20 02/26/20 History Famotidine [Pepcid] 20 mg PO DAILY 02/26/20 02/26/20 History Felodipine [Felodipine ER] 10 mg PO DAILY 02/26/20 02/26/20 History Allergies Allergy/AdvReac Type Severity Reaction Status Date / Time celecoxib [From Celebrex] Allergy Rash/Hives Verified 02/26/20 13:56 nitrofurantoin Allergy Swelling Verified 02/26/20 13:56 [From Macrobid] nitrofurantoin Allergy Swelling Verified 02/26/20 13:56 macrocrystalline [From Macrobid] sulfamethoxazole Allergy Swelling Verified 02/26/20 13:56 [From Bactrim] trimethoprim [From Bactrim] Allergy Swelling Verified 02/26/20 13:56 Physical Exam Vitals: Vital Signs Temp Pulse Pulse Resp BP BP Pulse Ox 02/26/20 09:08 98 F 72 16 167/77 99 02/26/20 08:00 98.2 F 72 16 160/72 99 02/26/20 06:26 97.9 F 70 16 164/71 96 02/26/20 05:56 98.0 F 73 16 145/70 98 02/26/20 05:46 98.2 F 77 17 136/70 96 02/26/20 05:33 98.2 F 72 16 146/69 99 02/26/20 03:31 98.3 F 69 16 129/65 98 02/26/20 03:01 98.0 F 70 16 125/60 96 02/26/20 02:51 98.0 F 74 16 127/65 97 02/26/20 02:26 98.1 F 79 16 135/47 98 02/26/20 01:41 97.9 F 73 16 126/61 98 02/26/20 00:46 97.4 F L 75 18 131/60 100 02/25/20 23:34 97.8 F 75 17 141/76 99 Intake and Output 02/25/20 02/26/20 02/26/20 22:59 06:59 14:59 Intake Total 610 310 Balance 610 310 Intake: Intake, IV Titration 300 Amount Sodium Chloride 0.9% 1, 300 000 ml @ 100 mls/hr IV . Q10H [facility] Rx#:[id number] Blood Product 310 310 Rc As-1 Unit 0 310 [id number] Rc As-1 Unit 310 [id number] Other: # Voids 1 Weight 51.1 kg On physical examination, patient appears comfortable in no apparent distress. HEAD: Normocephalic, atraumatic. EYES: No scleral icterus. No conjunctival injection. MOUTH: No lesions, tongue midline. NECK: Trachea midline, no gross abnormalities. CHEST: Clear to auscultation with no wheezing or rhonchi appreciated. HEART: Regular rate and rhythm. ABDOMEN: Soft, thin. Bowel sounds are positive. No organomegaly. No guarding or rigidity. EXTREMITIES: No pedal edema. SKIN: No rashes, no jaundice. NEUROLOGIC: Alert and oriented x3. No focal deficits. Results CBC & Chem 7: 02/25/20 23:48 02/25/20 23:48 Labs: Abnormal Lab Results - Last 24 Hours (Table) 02/25/20 02/25/20 02/25/20 Range/Units 23:48 23:48 23:48 RBC 1.91 L (3.80-5.40) m/uL Hgb 6.0 L* (11.4-16.0) gm/dL Hct 18.6 L* (34.0-46.0) % RDW 16.9 H (11.5-15.5) % APTT 20.4 L (22.0-30.0) sec Sodium 128 L (137-145) mmol/L Chloride 96 L (98-107) mmol/L BUN 111 H* (7-17) mg/dL Creatinine 1.74 H (0.52-1.04) mg/dL Glucose 116 H (74-99) mg/dL Magnesium 2.5 H (1.6-2.3) mg/dL Total Bilirubin 0.1 L (0.2-1.3) mg/dL Lipase 470 H (23-300) U/L Crossmatch 02/25/20 Range/Units 23:48 RBC (3.80-5.40) m/uL Hgb (11.4-16.0) gm/dL Hct (34.0-46.0) % RDW (11.5-15.5) % APTT (22.0-30.0) sec Sodium (137-145) mmol/L Chloride (98-107) mmol/L BUN (7-17) mg/dL Creatinine (0.52-1.04) mg/dL Glucose (74-99) mg/dL Magnesium (1.6-2.3) mg/dL Total Bilirubin (0.2-1.3) mg/dL Lipase (23-300) U/L Crossmatch See Detail Assessment and Plan (1) Acute upper GI bleed Narrative/Plan: 74-year-old female presenting to the hospital with complaints of coffee-ground emesis and melena. Patient reports one episode of coffee-ground emesis into dark stool. No further episodes since presentation. Patient found to be severely anemic with hemoglobin of 6 on presentation. Prior GI bleed in 2017 at which time patient was found to have antral ulcers. Patient does have a known history of chronic kidney disease and anemia in the past with last colonoscopy in 2013 performed in evaluation of anemia significant for diverticular disease. Suspicion is for peptic ulcer disease, differential also including gastritis, Yenifer-Mathews tear or other etiology. Current Visit: Yes Status: Acute Code(s): K92.2 - GASTROINTESTINAL HEMORRHAGE, UNSPECIFIED SNOMED Code(s): 82693045 (2) Acute blood loss anemia Current Visit: Yes Status: Acute Code(s): D62 - ACUTE POSTHEMORRHAGIC ANEMIA SNOMED Code(s): 081192269 Plan: Supportive care Clear liquid diet Nothing by mouth after midnight Continue IV Protonix twice daily Continue to monitor hemoglobin and hematocrit and transfuse as needed Laboratory evaluation for anemia ordered Plan for EGD tomorrow for evaluation Thank you for allowing us to participate in the care of the patient we will continue to follow
[2020-02-26 18:33] LABS: Anisocytosis Slight; HCT 26.3 % (34.0-46.0); MCH 29.2 pg (25.0-35.0); MCHC 31.5 g/dL (31.0-37.0); MCV 92.9 fL (80.0-100.0); Macrocytosis Slight; Mean Platelet Volume 7.6; Platelet Count 233 k/uL (150-450); RBC 2.83 m/uL (3.80-5.40); RDW 18.6 % (11.5-15.5); WBC 4.5 k/uL (3.8-10.6)
[2020-02-26 18:37] LABS: HGB 8.3 gm/dL (11.4-16.0)
[2020-02-26] MEDS: ATORVASTATIN 10 MG TAB PO SCH (20:13)
[2020-02-27] MEDS: SODIUM CHLORIDE 0.9% 1,000 ML IV SCH ×2 (06:15→20:17)
[2020-02-27] MEDS: PANTOPRAZOLE 40 MG/10 ML VIAL IV SCH ×2 (07:37→20:17)
[2020-02-27] MEDS: METOPROLOL TARTRATE 50 MG TAB PO SCH ×2 (07:37→20:17)
[2020-02-27] MEDS: amLODIPine 10 MG TAB PO SCH (07:37)
[2020-02-27 08:07] LABS: Calcium 8.8 mg/dL (8.4-10.2); Potassium 4.4 mmol/L (3.5-5.1)
[2020-02-27 08:10] LABS: Anisocytosis Slight; Basophils % (A) 1 %; Eosinophils # (A) 0.2 k/uL (0-0.7); Eosinophils % (A) 6 %; HCT 26.6 % (34.0-46.0); HGB 8.7 gm/dL (11.4-16.0); Lymphocytes # (A) 0.8 k/uL (1.0-4.8); Lymphocytes % (A) 22 %; MCH 30.5 pg (25.0-35.0); MCHC 32.8 g/dL (31.0-37.0); MCV 93.1 fL (80.0-100.0); Monocytes # (A) 0.4 k/uL (0-1.0); Monocytes % (A) 10 %; Neutrophils # (A) 2.3 k/uL (1.3-7.7); Neutrophils % (A) 59 %; Platelet Count 249 k/uL (150-450); RBC 2.85 m/uL (3.80-5.40); RDW 18.4 % (11.5-15.5); WBC 3.9 k/uL (3.8-10.6)
[2020-02-27 08:58] LABS: Reticulocyte % 5.2 % (0.5-2.0)
--- NOTE | 2020-02-27 08:59 | P.PN ---
Subjective Progress Note Date: 02/27/20 This is a 74-year-old pleasant female patient of Dr. Baez with a past medical history significant for chronic anemia, stage IV chronic kidney disease, iron deficiency, diverticular low cyst, hyperlipidemia, osteoarthritis, osteoporosis. Patient is a former smoker she drinks approximately 3-4 vodka drinks on the weekend in one to 2 during the week. The patient returned home from [place] with her . She and her drove 10 hours stayed overnight and drove 10 more hours arriving on Friday to [place]. On the patient noticed black tarry stools. Patient complains of nausea and vomiting. The nausea and vomiting has been chronic while in [place] she seen a filtering machine tender who was setting her up for a upper and lower endoscopy. Due to the covid 19, patient was unable to have the test done while in [place]. Patient presented to the emergency room with coffee-ground emesis and black tarry stools for 2 days. Patient is also complaining of nausea vomiting and loss of appetite and weakness. Patient was found to have a hemoglobin of 6.0. BUN 111 most likely due to the acute blood loss, creatinine 1.74. Patient denied any syncope. Patient was complaining of a headache which she took aspirin yesterday prior to arrival to the emergency room. While in [place] patient did receive Procrit. 02/27/2020: Patient is resting comfortable in bed without any difficulties or complaints. Patient states that she is feeling much better today compared to yesterday. Patient had 2 units of packed red blood cells transfused hemoglobin today 8.3. Patient's BUN has improved to 46 and creatinine 1.41. She tolerated clear liquid diet yesterday without any episodes of nausea or vomiting. Patient is scheduled for EGD today. Recommend the patient to have colonoscopy tomorrow and to start her prep today. Review of Systems Review Of Systems: Constitutional: No fever, no chills, no night sweats. No weight change. Report weakness, reports fatigue no lethargy. No daytime sleepiness. EENT: Reports headache. No blurred vision or double vision, no loss of vision. No loss of Hearing, no ringing in the ears, no dizziness. No nasal drainage or congestion. No epistaxis. No sore throat. Lungs: No shortness of breath, cough, no sputum production. No wheezing. Cardiovascular: No chest pain, no lower extremity edema. No palpitations. No paroxysmal nocturnal dyspnea. No orthopnea. No lightheadedness or dizziness. No syncopal episodes. Abdominal: no abdominal discomfort. Denies nausea and vomiting. no diarrhea. No constipation. Denies tarry stools no bright red blood. Denies loss of appetite. Genitourinary: No dysuria, increased frequency, urgency. No urinary retention. Musculoskeletal: No myalgias. No muscle weakness, no gait dysfunction, no frequent falls. No back pain. No neck pain. Integumentary: No wounds, no lesions. No rash or pruritus. No unusual bruising. No change in hair or nails. Neurologic: No aphasia. No facial droop. No change in mentation. No head injury. No headache. No paralysis. No paresthesia. Psychiatric: No depression. Denies anxiety. No mood swings. Endocrine: No abnormal blood sugars. No weight change. No excessive sweating or thirst. Objective - Vital Signs Vital signs: Vital Signs Temp 98 F 02/27/20 07:32 Pulse 70 02/27/20 07:32 Resp 16 02/27/20 07:32 BP 156/75 02/27/20 07:32 Pulse Ox 98 02/27/20 07:32 Intake & Output 02/26/20 02/27/20 02/27/20 18:59 06:59 18:59 Intake Total 1110 400 Balance 1110 400 Weight 51.8 kg Intake: IV 800 Sodium Chloride 0.9% 1, 800 000 ml @ 100 mls/hr IV . Q10H [facility] Rx#:[id number] Intake, IV Titration 400 Amount Sodium Chloride 0.9% 1, 400 000 ml @ 100 mls/hr IV . Q10H [facility] Rx#:[id number] Blood Product 310 Rc As-1 Unit 310 [id number] Other: Voiding Method Toilet # Voids 3 1 - Exam General Appearance: Alert, cooperative, moderate distress, appears stated age. Neck HEENT: Supple, no lymphadenopathy, no thyroid enlargement, no carotid bruits. Lungs: Clear to auscultation without crackles or wheezes no rhonchi, no deformity. Chest Wall: Chest wall normal expansion with deep inspiration no tenderness and no deformity was found on exam, no costochondral pain or discomfort. Heart: Regular rate and rhythm, S1, S2 normal, no murmur, rub or gallop. Back: Symmetric, no curvature, ROM normal, no CVA tenderness. Abdomen: Soft, non-tender, no rebound or rigidity, no hepatosplenomegaly. Extremities: Extremities normal, atraumatic, no cyanosis or edema. Pulses: 2+ and symmetric. Skin: Skin color, texture, tugor normal, no rashes or lesions. Neurologic: Alert oriented x3 cranial nerves II through XII intact, no motor deficit, no abnormal balance or gait - Labs CBC & Chem 7: 02/27/20 07:00 02/27/20 07:00 Labs: Abnormal Lab Results - Last 24 Hours (Table) 02/25/20 02/26/20 02/27/20 Range/Units 23:48 18:17 07:00 RBC 2.83 L 2.85 L (3.80-5.40) m/uL Hgb 8.3 L D 8.7 L (11.4-16.0) gm/dL Hct 26.3 L 26.6 L (34.0-46.0) % RDW 18.6 H 18.4 H (11.5-15.5) % Lymphocytes # 0.8 L (1.0-4.8) k/uL Sodium (137-145) mmol/L BUN (7-17) mg/dL Creatinine (0.52-1.04) mg/dL Crossmatch See Detail 02/27/20 Range/Units 07:00 RBC (3.80-5.40) m/uL Hgb (11.4-16.0) gm/dL Hct (34.0-46.0) % RDW (11.5-15.5) % Lymphocytes # (1.0-4.8) k/uL Sodium 136 L (137-145) mmol/L BUN 46 H (7-17) mg/dL Creatinine 1.41 H (0.52-1.04) mg/dL Crossmatch Assessment and Plan Plan: 1. Acute GI bleed with acute blood loss anemia most likely upper gastric bleed possible AV M. GI consult appreciated, continue Protonix 40 mg twice a day, scheduled for EGD today, recommend colonoscopy tomorrow patient possibly to start prep today per Dr. Handley recommendation, 2 units of packed red blood cells transfused, hemoglobin 8.3. Continue to monitor CBC. If negative results with endoscopy consideration for capsule endoscopy. 2. Acute blood loss anemia. As noted above 3. Chronic anemia. Recent Procrit 4. Chronic kidney disease stage IV. Continue to monitor kidney function 5. Hyperlipidemia. Atorvastatin 10 mg by mouth at bedtime 6. Hypertension. Continue amlodipine 10 mg, metoprolol 50 mg twice a day 7. Anxiety. Continue Xanax as needed 0.25 mg every 8 hours, fluoxetine 40 mg by mouth daily 8. COVID-19 infection is negative 9. GI prophylaxis. Protonix 10. DVT prophylaxis. SCDs ambulation Patient will be admitted to the hospital for minimum of 2 nights day. Discharge plan: Return home. CODE STATUS: Full code Impression and plan of care have been directed as dictated by the signing physician. Maye Vanessa nurse practitioner acting as scribe for signing physician.
--- NOTE | 2020-02-27 11:55 | P.PN ---
Subjective Progress Note Date: 02/27/20 Principal diagnosis: Acute GI bleeding 74-year-old female patient who is known to me from previous admissions as I see the patient back in 2017 after she came in to our intensive care unit for a GI bleed. The patient came into the hospital yesterday as she was feeling weak and she has had 2 melanotic stool and a emesis or she has noticed some groundglass material. She was getting tired and fatigued and she was admitted to the hospital because of an upper GI bleed. She arrived from [place] few days back and she was doing well. She drinks alcohol. She doesn't take any form of nonsteroidal anti-inflammatory medication patient is known to have chronic kidney disease stage III disease along with hypertension and chronic anxiety and depression. Based on her previous evaluation, the patient had a EGD did back in 2016 showed mild antral and antral ulcers with some white exudate and there was no active bleeding back then. She also has a small sliding hiatal hernia. The patient had no malignancy. Her H. pylori status was negative. During this current admission, the patient's hemoglobin was down to 6 and the patient is currently receiving her second unit of packed RBC pending for a blood levels of hemoglobin. Correlation profile is essentially within normal levels with normal PT PT/INR INR. Bilirubin is at 0.1. Sodium level is at 128. The patient is seen today in 02/27/2020 in follow-up on the regular medical floor. She is currently resting comfortably in bed. Awake and alert in no acute distress. Feeling a bit better today compared to yesterday. She is maintaining good O2 saturations in the high 90s on room air. She's been afebrile. She is status post 2 units of packed red blood cells this admission. Current hemoglobin 8.7. White count 3.9. Sodium 136. Potassium 4.4. Creatinine 1.41. She's currently receiving 0.9 normal saline at 100 ML's per hour. She is on Protonix IV. The plan is for EGD today. Objective - Vital Signs Vital signs: Vital Signs Temp 97.9 F 02/27/20 11:06 Pulse 72 02/27/20 11:06 Resp 16 02/27/20 11:06 BP 160/75 02/27/20 11:06 Pulse Ox 99 02/27/20 11:06 Intake & Output 02/26/20 02/27/20 02/27/20 18:59 06:59 18:59 Intake Total 1110 400 Balance 1110 400 Weight 51.8 kg Intake: IV 800 Sodium Chloride 0.9% 1, 800 000 ml @ 100 mls/hr IV . Q10H [facility] Rx#:[id number] Intake, IV Titration 400 Amount Sodium Chloride 0.9% 1, 400 000 ml @ 100 mls/hr IV . Q10H [facility] Rx#:[id number] Blood Product 310 Rc As-1 Unit 310 [id number] Other: Voiding Method Toilet Toilet # Voids 3 1 - Exam Gen. appearance: this is a very pleasant 74-year-old female patient appears well nourished and normally developed. On room air. Head exam is unremarkable. No scleral icterus or corneal arcus noted. Neck is without jugular venous distension, thyromegaly, or carotid bruits. Carotid upstrokes are brisk bilaterally. Lungs are clear to auscultation and percussion. Cardiac exam reveals the PMI to be normally sized and situated. Rhythm is regular. First and second heart sounds normal. No murmurs, rubs or gallops. Abdominal exam reveals normal bowel sounds, no masses, no organomegaly and no aortic enlargement. Extremities are nonedematous and both femoral and pedal pulses are normal. Examination of the skin revealed no evidence of significant rashes, suspicious appearing nevi or other concerning lesions. Neurologically the patient is awake and alert and there is no focal neurological deficit. - Labs CBC & Chem 7: 02/27/20 07:00 02/27/20 07:00 Labs: Abnormal Lab Results - Last 24 Hours (Table) 02/26/20 02/27/20 02/27/20 Range/Units 18:17 07:00 07:00 RBC 2.83 L 2.85 L (3.80-5.40) m/uL Hgb 8.3 L D 8.7 L (11.4-16.0) gm/dL Hct 26.3 L 26.6 L (34.0-46.0) % RDW 18.6 H 18.4 H (11.5-15.5) % Lymphocytes # 0.8 L (1.0-4.8) k/uL Retic Count (0.5-2.0) % Sodium 136 L (137-145) mmol/L BUN 46 H (7-17) mg/dL Creatinine 1.41 H (0.52-1.04) mg/dL 02/27/20 Range/Units 07:00 RBC (3.80-5.40) m/uL Hgb (11.4-16.0) gm/dL Hct (34.0-46.0) % RDW (11.5-15.5) % Lymphocytes # (1.0-4.8) k/uL Retic Count 5.2 H (0.5-2.0) % Sodium (137-145) mmol/L BUN (7-17) mg/dL Creatinine (0.52-1.04) mg/dL Assessment and Plan Assessment: 1 upper GI bleeding. The patient is known to have chronic gastritis and antral ulcers based on a previous EGD that was done 2016. Currently she is having melanotic stools and coffee-ground emesis in hemoglobin dropped down to 6. Cons ider alcoholic gastritis, as the patient has a negative H. pylori status. Coagulation profile is within normal limits and the patient has not had any further episodes of bleeding. Plan is for EGD today. 2 profound anemia with hemoglobin of 6.0 secondary to above, received 2 units of packed RBC transfusions, current hemoglobin 8.7. 3 acute kidney injury on top of stage III chronic renal failure, improving and the creatinine is down to 1. 41 4 stage III chronic kidney failure 5 hypertension 6 hyperlipidemia 7 mild diverticulosis based on the previous colonoscopies in 2013 9 alcohol ingestion 10 mild component of pancreatitis, without any significant abdominal pain. Liver function tests are within normal limits Plan The patient was seen and evaluated by Dr. Braeden Kidd from the pulmonary standpoint Await EGD results Continue to monitor hemoglobin We'll continue to follow I, the cosigning physician, performed a history & physical examination of the patient. Lungs sounds are clear. Maintaining good O2 saturations in the 90s on room air. I discussed the assessment and plan of care with my nurse practitioner, Shea Andrew. I attest to the above note as dictated by her.
[2020-02-27] MEDS ORDERED: PROPOFOL 10 MG/ML 20 ML VIAL IV ONE (14:17)
[2020-02-27] MEDS ORDERED: LIDOCAINE 1% INJ 10MG/ML (20 ML MDV) ONE (14:17)
[2020-02-27] MEDS ORDERED: SODIUM CHLORIDE 0.9% 500 ML 500 ML IV ONE (14:33)
[2020-02-27] MEDS ORDERED: IV FLUID CONTINUATION 1,000 ML IV ONE (14:33)
--- NOTE | 2020-02-27 14:35 | P.PCN ---
Date of Procedure: 02/27/20 Description of Procedure: BRIEF HISTORY: 74-year-old female with multiple medical comorbidities including chronic kidney disease, chronic anemia, iron deficiency, diverticular disease, hyperlipidemia, osteoarthritis, prior history of peptic ulcer disease who presents to the hospital due to vomiting, coffee-ground emesis and melena. The patient reports one episode of coffee-ground emesis. Denies any gross bleeding with the vomitus. No further episodes however she has had 2 further episodes of melena since that time. The patient does have a history of peptic ulcer disease diagnosed in February 2017 when the patient presented with similar complaints and was found to have antral ulcers. Last colonoscopy in 03/2014 in evaluation of anemia with findings of diverticular disease. Patient reports currently drinking 8-10 alcoholic beverages per week. Currently denying any abdominal pain. Patient was found to be severely anemic on presentation with a hemoglobin of 6, with hemoglobin 8.3 and then 8.7 after 2 units of packed red blood cells. PROCEDURE PERFORMED: Esophagogastroduodenoscopy with biopsy. PREOPERATIVE DIAGNOSIS: Melena, anemia of acute blood loss. ESTIMATED BLOOD LOSS: Minimal. IV sedation per anesthesia. PROCEDURE: After informed consent was obtained, the patient was brought into the endoscopy unit. IV sedation was administered by Anesthesia under continuous monitoring. Initially the Olympus GIF-190 video endoscope was inserted into the mouth. Esophagus intubated without any difficulty. It was gradually advanced into the stomach and duodenum and carefully examined. The bulb and the second part of the duodenum appeared normal, with biopsies. The scope at this time was withdrawn to the stomach, adequately insufflated with air, and upon careful examination, mucosa of the antrum, body, cardia and the fundus appeared normal, except for some mild erythema in the antrum and body suggestive of mild gastritis with biopsies of antrum body to come with a 1 cm cratered nonbleeding antral ulcer also noted without any high risk stigmata for bleeding which was biopsied. The scope was then withdrawn into the esophagus. The GE junction was located at 37 cm from the incisors, with a nonobstructing Schatzki's ring just proximal to the GE junction. The esophagus appeared normal. There were no erosions or ulcerations seen and the patient tolerated the procedure well. IMPRESSION: 1. Nonbleeding antral ulcer with biopsies taken. 2. Mild gastritis antrum body, biopsied. 3. Duodenal biopsies. 4. Widely patent and nonobstructing distal esophageal Schatzki's ring. RECOMMENDATIONS: The findings of this examination were discussed with the patient. Okay to resume diet. Okay to resume medications. Avoid NSAID use. Await iron studies, will order iron supplementation if depressed. Okay for discharge home tomorrow if medically stable and hemoglobin remained stable.
[2020-02-27] MEDS ORDERED: SODIUM FERRIC GLUCONAT-SUCROSE 125 MG in SODIUM CHLORIDE 0.9% 100 ML IVPB ONE (15:00)
[2020-02-27] MEDS: MAGNESIUM OXIDE 400 MG TAB PO SCH (17:15)
[2020-02-27] MEDS: FLUoxetine HCL 20 MG CAP PO SCH (17:15)
[2020-02-27] MEDS: ATORVASTATIN 10 MG TAB PO SCH (20:17)
[2020-02-27] MEDS: ALPRAZolam 0.25 MG TAB PO PRN (22:16)
[2020-02-28] MEDS: SODIUM CHLORIDE 0.9% 1,000 ML IV SCH ×3 (03:46→23:09)
[2020-02-28 07:03] LABS: Anisocytosis Slight; Basophils % (A) 0 %; Eosinophils # (A) 0.3 k/uL (0-0.7); Eosinophils % (A) 5 %; HCT 27.2 % (34.0-46.0); HGB 8.7 gm/dL (11.4-16.0); Lymphocytes # (A) 0.9 k/uL (1.0-4.8); Lymphocytes % (A) 17 %; MCH 29.6 pg (25.0-35.0); MCHC 31.9 g/dL (31.0-37.0); Mean Platelet Volume 6.6; Monocytes # (A) 0.6 k/uL (0-1.0); Monocytes % (A) 12 %; Neutrophils # (A) 3.1 k/uL (1.3-7.7); Neutrophils % (A) 62 %; Platelet Count 271 k/uL (150-450); RBC 2.93 m/uL (3.80-5.40); RDW 17.9 % (11.5-15.5)
[2020-02-28 07:08] LABS: Calcium 8.6 mg/dL (8.4-10.2); Potassium 4.4 mmol/L (3.5-5.1)
[2020-02-28] MEDS: METOPROLOL TARTRATE 50 MG TAB PO SCH ×2 (08:39→20:08)
[2020-02-28] MEDS: MAGNESIUM OXIDE 400 MG TAB PO SCH (08:39)
[2020-02-28] MEDS: FLUoxetine HCL 20 MG CAP PO SCH (08:39)
[2020-02-28] MEDS: amLODIPine 10 MG TAB PO SCH (08:40)
[2020-02-28] MEDS: PANTOPRAZOLE 40 MG/10 ML VIAL IV SCH ×2 (08:40→20:08)
[2020-02-28] MEDS ORDERED: CALCIFEDIOL 30 MCG PO SCH (09:00)
[2020-02-28] MEDS ORDERED: ACETAMINOPHEN TAB 325 MG TAB PO PRN (09:45)
[2020-02-28] MEDS: ALPRAZolam 0.25 MG TAB PO PRN ×2 (10:51→23:07)
[2020-02-28 11:03] LABS: Ferritin 72.1 ng/mL (10.0-291.0)
[2020-02-28 11:50] LABS: % Iron Saturation 9.4 (12.00-45.00); Folate, Serum 14.3 ng/mL
--- NOTE | 2020-02-28 13:37 | P.PN ---
Subjective Progress Note Date: 02/28/20 This is a 74-year-old pleasant female patient of Dr. Baez with a past medical history significant for chronic anemia, stage IV chronic kidney disease, iron deficiency, diverticular low cyst, hyperlipidemia, osteoarthritis, osteoporosis. Patient is a former smoker she drinks approximately 3-4 vodka drinks on the weekend in one to 2 during the week. The patient returned home from [place] with her . She and her drove 10 hours stayed overnight and drove 10 more hours arriving on Friday to [place]. On the patient noticed black tarry stools. Patient complains of nausea and vomiting. The nausea and vomiting has been chronic while in [place] she seen a preparation operator who was setting her up for a upper and lower endoscopy. Due to the covid 19, patient was unable to have the test done while in [place]. Patient presented to the emergency room with coffee-ground emesis and black tarry stools for 2 days. Patient is also complaining of nausea vomiting and loss of appetite and weakness. Patient was found to have a hemoglobin of 6.0. BUN 111 most likely due to the acute blood loss, creatinine 1.74. Patient denied any syncope. Patient was complaining of a headache which she took aspirin yesterday prior to arrival to the emergency room. While in [place] patient did receive Procrit. 02/27/2020: Patient is resting comfortable in bed without any difficulties or complaints. Patient states that she is feeling much better today compared to yesterday. Patient had 2 units of packed red blood cells transfused hemoglobin today 8.3. Patient's BUN has improved to 46 and creatinine 1.41. She tolerated clear liquid diet yesterday without any episodes of nausea or vomiting. Patient is scheduled for EGD today. Recommend the patient to have colonoscopy tomorrow and to start her prep today. 02/27: EGD completed yesterday by Dr. Handley revealed nonbleeding antral ulcer with biopsies taken. Mild gastritis in the antrum body, biopsy. Duodenal b iopsies. Widely patent and nonobstructive distal esophageal Schatzki's ring. Patient states that she is feeling well today. Hemoglobin is stable at 8.7 on last 2 draws. patient states that she received a small dose of morphine last night and had a nightmare. She does not want to take that again and Tylenol has been started. Case was discussed with Dr. Handley and he will schedule patient for colonoscopy tomorrow. Patient will be transferred to the [facility] floor without telemetry. Review of Systems Constitutional: No fever, no chills, no night sweats. No weight change. Report weakness, reports fatigue no lethargy. EENT: Reports headache. No blurred vision or double vision, no loss of vision. No loss of Hearing, no ringing in the ears, no dizziness. No nasal drainage or congestion. No epistaxis. No sore throat. Lungs: No shortness of breath, cough, no sputum production. No wheezing. Cardiovascular: No chest pain, no lower extremity edema. No palpitations. No paroxysmal nocturnal dyspnea. No orthopnea. No lightheadedness or dizziness. No syncopal episodes. Abdominal: no abdominal discomfort. Denies nausea and vomiting. no diarrhea. No constipation. Denies tarry stools no bright red blood. Denies loss of appetite. Genitourinary: No dysuria, increased frequency, urgency. No urinary retention. Musculoskeletal: No myalgias. No muscle weakness, no gait dysfunction, no frequent falls. No back pain. No neck pain. Integumentary: No wounds, no lesions. No rash or pruritus. No unusual bruising. No change in hair or nails. Neurologic: No aphasia. No facial droop. No change in mentation. No head injury. No headache. No paralysis. No paresthesia. Psychiatric: No depression. Denies anxiety. No mood swings. Endocrine: No abnormal blood sugars. No weight change. No excessive sweating or thirst. Objective - Vital Signs Vital signs: Vital Signs Temp 98.1 F 02/28/20 08:00 Pulse 73 02/28/20 08:00 Resp 16 02/28/20 08:00 BP 141/73 02/28/20 08:00 Pulse Ox 97 02/28/20 08:00 Intake & Output 02/27/20 02/28/20 02/28/20 18:59 06:59 18:59 Intake Total 1240 Balance 1240 Weight 50.1 kg Intake: IV 1000 Sodium Chloride 0.9% 1, 700 000 ml @ 100 mls/hr IV . Q10H [facility] Rx#:[id number] Sodium Ferric Gluconat- 100 Sucrose 125 mg In Sodium Chloride 0.9% 100 ml @ 100 mls/hr IVPB ONCE ONE Rx#:[id number] Oral 240 Other: Voiding Method Toilet Toilet # Voids 1 1 - Exam General Appearance: Alert, cooperative, moderate distress, appears stated age. Neck HEENT: Supple, no lymphadenopathy, no thyroid enlargement, no carotid bruits. Lungs: Clear to auscultation without crackles or wheezes no rhonchi, no deformity. Chest Wall: Chest wall normal expansion with deep inspiration no tenderness and no deformity was found on exam, no costochondral pain or discomfort. Heart: Regular rate and rhythm, S1, S2 normal, no murmur, rub or gallop. Back: Symmetric, no curvature, ROM normal, no CVA tenderness. Abdomen: Soft, non-tender, no rebound or rigidity, no hepatosplenomegaly. Extremities: Extremities normal, atraumatic, no cyanosis or edema. Pulses: 2+ and symmetric. Skin: Skin color, texture, tugor normal, no rashes or lesions. Neurologic: Alert oriented x3 cranial nerves II through XII intact, no motor deficit, no abnormal balance or gait - Labs CBC & Chem 7: 02/28/20 06:24 02/28/20 06:24 Labs: Abnormal Lab Results - Last 24 Hours (Table) 02/27/20 02/28/20 02/28/20 Range/Units 07:00 06:24 06:24 RBC 2.93 L (3.80-5.40) m/uL Hgb 8.7 L (11.4-16.0) gm/dL Hct 27.2 L (34.0-46.0) % RDW 17.9 H (11.5-15.5) % Lymphocytes # 0.9 L (1.0-4.8) k/uL Retic Count 5.2 H (0.5-2.0) % Sodium 134 L (137-145) mmol/L BUN 26 H (7-17) mg/dL Creatinine 1.38 H (0.52-1.04) mg/dL Assessment and Plan Plan: 1. Acute GI bleed with acute blood loss anemia secondary to antral ulcer and gastritis status post EGD and pathology pending. GI consult appreciated, continue Protonix 40 mg twice a day, scheduled for colonoscopy tomorrow, status post2 units of packed red blood cells transfused with stable hemoglobin. Recheck CBC in the morning. 2. Acute blood loss anemia. As noted above 3. Chronic anemia. Recent Procrit 4. Chronic kidney disease stage IV. Continue to monitor kidney function 5. Hyperlipidemia. Atorvastatin 10 mg by mouth at bedtime 6. Hypertension. Continue amlodipine 10 mg, metoprolol 50 mg twice a day 7. Generalized anxiety disorder. Continue Xanax as needed 0.25 mg every 8 hours, fluoxetine 40 mg by mouth daily 8. COVID-19 infection is not present. 9. GI prophylaxis. Protonix 10. DVT prophylaxis. SCDs ambulation Discharge plan: Return home on Friday following colonoscopy. CODE STATUS: Full code Impression and plan of care have been directed as dictated by the signing physician. Jocelynn Watkins nurse practitioner acting as scribe for signing physician.
[2020-02-28] MEDS ORDERED: PEG 3350-NA SULF,BICARB,CL/KCL 4,000 ML BOTTLE PO ONE (16:00)
--- NOTE | 2020-02-28 17:52 | P.PN ---
Subjective Progress Note Date: 02/28/20 Principal diagnosis: GI bleed, antral ulcer, anemia due to blood loss The patient is seen lying in bed tolerating diet. No signs or symptoms of GI bleeding reported. Objective - Vital Signs Vital signs: Vital Signs Temp 97.9 F 02/28/20 15:15 Pulse 72 02/28/20 15:15 Resp 16 02/28/20 15:15 BP 146/77 02/28/20 15:15 Pulse Ox 100 02/28/20 15:15 Intake & Output 02/27/20 02/28/20 02/28/20 18:59 06:59 18:59 Intake Total 1240 Balance 1240 Weight 50.1 kg Intake: IV 1000 Sodium Chloride 0.9% 1, 700 000 ml @ 100 mls/hr IV . Q10H [facility] Rx#:[id number] Sodium Ferric Gluconat- 100 Sucrose 125 mg In Sodium Chloride 0.9% 100 ml @ 100 mls/hr IVPB ONCE ONE Rx#:[id number] Oral 240 Other: Voiding Method Toilet Toilet # Voids 1 1 1 - Exam On physical examination, patient appears comfortable in no apparent distress. HEAD: Normocephalic, atraumatic. EYES: No scleral icterus. No conjunctival injection. MOUTH: No lesions, tongue midline. NECK: Trachea midline, no gross abnormalities. ABDOMEN: Soft. Bowel sounds are positive. No organomegaly. No guarding or rigidity. EXTREMITIES: No pedal edema. SKIN: No rashes, no jaundice. NEUROLOGIC: Alert and oriented x3. No focal deficits. - Labs CBC & Chem 7: 02/28/20 06:24 02/28/20 06:24 Labs: Abnormal Lab Results - Last 24 Hours (Table) 02/27/20 02/28/20 02/28/20 Range/Units 07:00 06:24 06:24 RBC 2.93 L (3.80-5.40) m/uL Hgb 8.7 L (11.4-16.0) gm/dL Hct 27.2 L (34.0-46.0) % RDW 17.9 H (11.5-15.5) % Lymphocytes # 0.9 L (1.0-4.8) k/uL Sodium 134 L (137-145) mmol/L BUN 26 H (7-17) mg/dL Creatinine 1.38 H (0.52-1.04) mg/dL Iron 28 L (50-170) ug/dL % Saturation 9.40 L (12.00-45.00) Assessment and Plan (1) Acute upper GI bleed Narrative/Plan: 74-year-old female presenting to the hospital with complaints of coffee-ground emesis and melena. Patient reports one episode of coffee-ground emesis into dark stool. No further episodes since presentation. Patient found to be severely anemic with hemoglobin of 6 on presentation. Prior GI bleed in 2017 at which time patient was found to have antral ulcers. Patient does have a known history of chronic kidney disease and anemia in the past with last colonoscopy in 2013 performed in evaluation of anemia significant for diverticular disease. EGD performed yesterday significant for a nonbleeding antral ulcer with a widely patent distal esophageal Schatzki's ring noted. Current Visit: Yes Status: Acute Code(s): K92.2 - GASTROINTESTINAL HEMORRHAGE, UNSPECIFIED SNOMED Code(s): 51501431 (2) Acute blood loss anemia Current Visit: Yes Status: Acute Code(s): D62 - ACUTE POSTHEMORRHAGIC ANEMIA SNOMED Code(s): 788783884 Plan: Supportive care Clear liquid diet Nothing by mouth after midnight Continue IV Protonix twice daily Continue to monitor hemoglobin and hematocrit and transfuse as needed Laboratory evaluation for anemia ordered Plan for colonoscopy tomorrow for further evaluation Thank you for allowing us to participate in the care of the patient we will continue to follow
[2020-02-28] MEDS ORDERED: SODIUM FERRIC GLUCONAT-SUCROSE 125 MG in SODIUM CHLORIDE 0.9% 100 ML IVPB ONE (18:00)
[2020-02-28] MEDS ORDERED: BISACODYL 5 MG TABLET.DR PO ONE (18:00)
[2020-02-28] MEDS: ATORVASTATIN 10 MG TAB PO SCH (20:08)
[2020-02-29 06:37] LABS: Anisocytosis Slight; Basophils % (A) 1 %; Eosinophils # (A) 0.3 k/uL (0-0.7); Eosinophils % (A) 7 %; HCT 27.3 % (34.0-46.0); HGB 8.7 gm/dL (11.4-16.0); Lymphocytes % (A) 21 %; MCH 29.6 pg (25.0-35.0); MCHC 32.1 g/dL (31.0-37.0); MCV 92.5 fL (80.0-100.0); Mean Platelet Volume 7.2; Monocytes # (A) 0.5 k/uL (0-1.0); Monocytes % (A) 12 %; Neutrophils # (A) 2.5 k/uL (1.3-7.7); Neutrophils % (A) 56 %; Platelet Count 285 k/uL (150-450); RBC 2.95 m/uL (3.80-5.40); RDW 17.9 % (11.5-15.5); WBC 4.5 k/uL (3.8-10.6)
[2020-02-29 06:48] LABS: Calcium 8.8 mg/dL (8.4-10.2); Potassium 4.2 mmol/L (3.5-5.1)
[2020-02-29] MEDS ORDERED: DULoxetine HCL 60 MG CAPSULE.DR PO SCH (09:00)
[2020-02-29] MEDS: PANTOPRAZOLE 40 MG/10 ML VIAL IV SCH (09:09)
[2020-02-29] MEDS: MAGNESIUM OXIDE 400 MG TAB PO SCH (09:10)
[2020-02-29] MEDS: amLODIPine 10 MG TAB PO SCH (09:10)
[2020-02-29] MEDS: METOPROLOL TARTRATE 50 MG TAB PO SCH (09:10)
[2020-02-29] MEDS ORDERED: DARBEPOETIN ALFA 25 MCG/0.42 ML SYRINGE SQ SCH (10:30)
[2020-02-29] MEDS ORDERED: IV FLUID CONTINUATION 1,000 ML IV ONE (10:51)
[2020-02-29] MEDS ORDERED: LIDOCAINE 1% INJ 10MG/ML (20 ML MDV) ONE (11:00)
[2020-02-29] MEDS ORDERED: PROPOFOL 10 MG/ML 20 ML VIAL IV ONE (11:00)
--- NOTE | 2020-02-29 11:33 | P.PCN ---
Date of Procedure: 02/29/20 Description of Procedure: BRIEF HISTORY: 74-year-old female presenting to the hospital with complaints of coffee-ground emesis and melena. Patient reports one episode of coffee-ground emesis into dark stool. No further episodes since presentation. Patient found to be severely anemic with hemoglobin of 6 on presentation. Prior GI bleed in 2017 at which time patient was found to have antral ulcers. Patient does have a known history of chronic kidney disease and anemia in the past with last colonoscopy in 2013 performed in evaluation of anemia significant for diverticular disease. EGD performed yesterday significant for a nonbleeding antral ulcer with a widely patent distal esophageal Schatzki's ring noted. PROCEDURE PERFORMED: Colonoscopy with biopsy. PREOPERATIVE DIAGNOSIS: Altered bowel function, abdominal pain, GI bleed. ESTIMATED BLOOD LOSS: Minimal. IV sedation per Anesthesia. PROCEDURE: After informed consent was obtained, the patient, was brought into the endoscopy unit. IV sedation was administered by Anesthesia under continuous monitoring. Digital rectal examination was normal. Initially the Olympus CF-190 flexible video colonoscope was then inserted in the rectum, gradually advanced into the cecum without any difficulty. Careful examination was performed as the scope was gradually being withdrawn. Ileocecal valve and the appendiceal orifice were visualized and appeared normal. Prep was excellent. Mucosa of the cecum, ascending colon, transverse colon, descending colon, sigmoid colon, and rectum appeared normal, with multiple small and large mouth diverticula noted in the left colon.. Retroflexion was performed in the rectum and no lesions were seen, low-grade internal hemorrhoids seen. The patient tolerated the procedure well. IMPRESSION: Normal-appearing colon from rectum to cecum. Moderate left colonic diverticulosis. Low-grade internal hemorrhoids. RECOMMENDATIONS: Findings of this examination were discussed with the patient. Okay to resume diet. Okay to resume medications. Avoid NSAID medications. Follow-up for results of biopsies.
[2020-02-29 13:53] VITALS: RESP 16
--- NOTE | 2020-02-29 14:05 | P.DS ---
Providers Date of admission: 02/26/20 01:27 Expected date of discharge: 02/29/20 Attending physician: Justin Kumar MD Consults: 02/26/20 01:25 Consult Physician Routine Consulting Provider: Gladys Deras Consult Reason/Comments: icu Do you want consulting provider notified?: Yes Consult Physician Routine Consulting Provider: Nick Handley Consult Reason/Comments: gib Do you want consulting provider notified?: Yes Primary care physician: Evan Nestor [facility] Course: This is a 74-year-old pleasant female patient of Dr. Baez with a past medical history significant for chronic anemia, stage IV chronic kidney disease, iron deficiency, diverticular low cyst, hyperlipidemia, osteoarthritis, osteoporosis. Patient is a former smoker she drinks approximately 3-4 vodka drinks on the weekend in one to 2 during the week. The patient returned home from [place] with her . She and her drove 10 hours stayed overnight and drove 10 more hours arriving on Friday to [place]. On the patient noticed black tarry stools. Patient complains of nausea and vomiting. The nausea and vomiting has been chronic while in [place] she seen a first assist who was setting her up for a upper and lower endoscopy. Due to the covid 19, patient was unable to have the test done while in [place]. Patient presented to the emergency room with coffee-ground emesis and black tarry stools for 2 days. Patient is also complaining of nausea vomiting and loss of appetite and weakness. Patient was found to have a hemoglobin of 6.0. BUN 111 most likely due to the acute blood loss, creatinine 1.74. Patient denied any syncope. Patient was complaining of a headache which she took aspirin yesterday prior to arrival to the emergency room. While in [place] patient did receive Procrit. 02/27/2020: Patient is resting comfortable in bed without any difficulties or complaints. Patient states that she is feeling much better today compared to yesterday. Patient had 2 units of packed red blood cells transfused hemoglobin today 8.3. Patient's BUN has improved to 46 and creatinine 1.41. She tolerated clear liquid diet yesterday without any episodes of nausea or vomiting. Patient is scheduled for EGD today. Recommend the patient to have colonoscopy tomorrow and to start her prep today. 02/27: EGD completed yesterday by Dr. Handley revealed nonbleeding antral ulcer with biopsies taken. Mild gastritis in the antrum body, biopsy. Duodenal biopsies. Widely patent and nonobstructive distal esophageal Schatzki's ring. Patient states that she is feeling well today. Hemoglobin is stable at 8.7 on last 2 draws. patient states that she received a small dose of morphine last night and had a nightmare. She does not want to take that again and Tylenol has been started. Case was discussed with Dr. Handley and he will schedule patient for colonoscopy tomorrow. Patient will be transferred to the [facility] floor without telemetry. 02/28: Patient underwent colonoscopy today with Dr. Mason that found normal- appearing colon ROM rectum to cecum. Moderate left colonic diverticulosis. Low-grade internal hemorrhoids. Patient was cleared for regular diet avoid nonsteroidal anti-inflammatory drugs. Repeat hemoglobin is 8.7. BUN 20 creatinine 1.34. Patient denies having any nausea, vomiting, abdominal pain Patient will be discharged home today in stable condition. Discharge diagnoses: 1. Acute GI bleed with acute blood loss anemia secondary to antral ulcer and gastritis status post EGD and colonoscopy and pathology pending. 2. Acute blood loss anemia status post transfusion of 2 units packed RBCs. 3. Chronic anemia. 4. Chronic kidney disease stage IV. 5. Hyperlipidemia. 6. Hypertension. 7. Generalized anxiety disorder. 8. COVID-19 infection is not present. Discharge plan: home Impression and plan of care have been directed as dictated by the signing physician. Jocelynn Watkins nurse practitioner acting as scribe for signing physician. Patient Condition at Discharge: Good Plan - Discharge Summary New Discharge Prescriptions: New DULoxetine HCL [Cymbalta] 60 mg PO DAILY #30 capsule.dr Continue Furosemide 20 mg PO DAILY Atorvastatin [Lipitor] 10 mg PO HS Metoprolol Tartrate [Lopressor] 50 mg PO BID Magnesium Oxide [Mag-Ox] 250 mg PO HS Lisinopril [Zestril] 2.5 mg PO DAILY Famotidine [Pepcid] 20 mg PO DAILY Aspirin EC [Ecotrin Low Dose] 81 mg PO DAILY Felodipine [Felodipine ER] 10 mg PO DAILY Calcitriol 0.25 mcg PO DAILY Discontinued FLUoxetine HCL 40 mg PO DAILY Discharge Medication List Furosemide 20 mg PO DAILY 03/01/14 [History] Atorvastatin [Lipitor] 10 mg PO HS 02/23/17 [History] Metoprolol Tartrate [Lopressor] 50 mg PO BID 02/23/17 [History] Magnesium Oxide [Mag-Ox] 250 mg PO HS 02/24/17 [History] Lisinopril [Zestril] 2.5 mg PO DAILY 05/06/19 [History] Aspirin EC [Ecotrin Low Dose] 81 mg PO DAILY 02/26/20 [History] Calcitriol 0.25 mcg PO DAILY 02/26/20 [History] Famotidine [Pepcid] 20 mg PO DAILY 02/26/20 [History] Felodipine [Felodipine ER] 10 mg PO DAILY 02/26/20 [History] DULoxetine HCL [Cymbalta] 60 mg PO DAILY #30 capsule. 02/29/20 [Rx] Follow up Appointment(s)/Referral(s): Evan Baez MD [Primary Care Provider] - 1 Week Activity/Diet/Wound Care/Special Instructions: NO NSAID. Pt would like a copy of her labs faxed to her charter coordinator, Dr Bustamante, at discharge. Discharge Disposition: HOME SELF-CARE
[2020-02-29 16:25] VITALS: BP 135/68; PULSE 76; TEMP 97.9
== END 2020-02-29 18:05 | disposition home or self-care (01) | DRG 377 ==
LOC: EC 23:30 → 3SCARD 02-26 01:27
PROVIDERS: ADMIT Internal Medicine; ATTEND Internal Medicine
PROC: 30233N1 Transfusion of Nonautologous Red Blood Cells into Peripheral Vein, Percutaneous Approach (ICD-10-PCS; 2020-02-26)
PROC: 0DB78ZX Excision of Stomach, Pylorus, Via Natural or Artificial Opening Endoscopic, Diagnostic (ICD-10-PCS; principal; 2020-02-27 14:00)
PROC: 0DB98ZX Excision of Duodenum, Via Natural or Artificial Opening Endoscopic, Diagnostic (ICD-10-PCS; principal; 2020-02-27 14:00)
PROC: 0DJD8ZZ Inspection of Lower Intestinal Tract, Via Natural or Artificial Opening Endoscopic (ICD-10-PCS; 2020-02-29)
DX: K29.51 Unspecified chronic gastritis with bleeding (principal); K85.90 Acute pancreatitis without necrosis or infection, unspecified; D62 Acute posthemorrhagic anemia; N17.9 Acute kidney failure, unspecified; N18.4 Chronic kidney disease, stage 4 (severe); K25.4 Chronic or unspecified gastric ulcer with hemorrhage; K22.2 Esophageal obstruction; D63.1 Anemia in chronic kidney disease; E78.5 Hyperlipidemia, unspecified; F32.9 Major depressive disorder, single episode, unspecified; F41.1 Generalized anxiety disorder; I12.9 Hypertensive chronic kidney disease with stage 1 through stage 4 chronic kidney disease, or unspecified chronic kidney disease; K44.9 Diaphragmatic hernia without obstruction or gangrene; K57.30 Diverticulosis of large intestine without perforation or abscess without bleeding; K64.8 Other hemorrhoids; M19.90 Unspecified osteoarthritis, unspecified site; M1A.9XX0 Chronic gout, unspecified, without tophus (tophi); M81.0 Age-related osteoporosis without current pathological fracture; Z11.59 Encounter for screening for other viral diseases; K57.90 Diverticulosis of intestine, part unspecified, without perforation or abscess without bleeding; E61.1 Iron deficiency; Z79.82 Long term (current) use of aspirin; Z79.899 Other long term (current) drug therapy; Z98.1 Arthrodesis status; Z87.891 Personal history of nicotine dependence; Z98.42 Cataract extraction status, left eye; Z98.41 Cataract extraction status, right eye; Z96.1 Presence of intraocular lens; Z98.51 Tubal ligation status; Z88.1 Allergy status to other antibiotic agents; Z88.2 Allergy status to sulfonamides; Z80.3 Family history of malignant neoplasm of breast; Z82.61 Family history of arthritis
CPT/HCPCS: 36415; 43239; 45380; 80048; 80053; 82607; 82728; 82746; 83540; 83550; 83605; 83690; 83735; 84466; 84484; 85025; 85027; 85045; 85610; 85730; 86850; 86900; 86901; 86920; 87635; 88305; 93005; 96361; 96374; 99285

== ENCOUNTER → 2020-03-16 | Outpatient (CLI) | payer MEDICARE, BC ==
[2020-03-16 14:56] LABS: Anisocytosis Slight; Basophils # (A) 0.1 k/uL (0-0.2); Basophils % (A) 1 %; Eosinophils # (A) 0.3 k/uL (0-0.7); Eosinophils % (A) 6 %; HCT 32.5 % (34.0-46.0); HGB 9.9 gm/dL (11.4-16.0); Hypochromasia Slight; Lymphocytes # (A) 0.9 k/uL (1.0-4.8); Lymphocytes % (A) 17 %; MCH 28.9 pg (25.0-35.0); MCHC 30.4 g/dL (31.0-37.0); MCV 94.9 fL (80.0-100.0); Mean Platelet Volume 6.5; Monocytes # (A) 0.5 k/uL (0-1.0); Monocytes % (A) 10 %; Neutrophils # (A) 3.4 k/uL (1.3-7.7); Neutrophils % (A) 63 %; Platelet Count 500 k/uL (150-450); RBC 3.43 m/uL (3.80-5.40); WBC 5.4 k/uL (3.8-10.6)
[2020-03-16 15:18] LABS: Protein/Creatinine Ratio,Urine 0.495
[2020-03-17 01:03] LABS: Albumin 3.9 g/dL (3.80-4.90); Anion Gap 5.5 mmol/L (4.00-12.00); BUN/Creat Ratio 17.69 Ratio (12.00-20.00); Calcium 10.2 mg/dL (8.7-10.3); Carbon Dioxide 28.5 mmol/L (21.6-31.8); Magnesium 2.3 mg/dL (1.5-2.4); Non-African American GFR(CKD) 17.2 (60.0-200.0); Phosphorus 5.3 mg/dL (2.4-5.1); Potassium 5.2 mmol/L (3.5-5.5)
== END | disposition home or self-care (01) ==
LOC: LABWHC1 14:12
PROVIDERS: ATTEND Internal Medicine Nephrology
DX: I12.9 Hypertensive chronic kidney disease with stage 1 through stage 4 chronic kidney disease, or unspecified chronic kidney disease (principal); N18.3 Chronic kidney disease, stage 3 (moderate)
CPT/HCPCS: 36415; 80069; 82306; 82570; 83735; 83970; 84156; 85025

== ENCOUNTER → 2020-04-05 | Outpatient (CLI) | payer MEDICARE, BC ==
[2020-04-05 19:16] LABS: African American GFR (CKD) 25.8 (60.0-200.0); Non-African American GFR(CKD) 22.3 (60.0-200.0); Phosphorus 3.8 mg/dL (2.4-5.1); Potassium 5.5 mmol/L (3.5-5.5)
== END | disposition home or self-care (01) ==
LOC: LABWHC1 13:48
PROVIDERS: ATTEND Internal Medicine Nephrology
DX: N18.3 Chronic kidney disease, stage 3 (moderate) (principal)
CPT/HCPCS: 36415; 80069

== ENCOUNTER → 2020-06-29 | Outpatient (CLI) | payer MEDICARE, BC ==
[2020-06-29 14:38] LABS: African American GFR (CKD) 31 (>60 ml/min/1.73 sqM); Albumin 3.8 g/dL (3.5-5.0); Anion Gap 5 mmol/L; Blood Urea Nitrogen 37 mg/dL (7-17); Calcium 9.3 mg/dL (8.4-10.2); Carbon Dioxide 26 mmol/L (22-30); Chloride 103 mmol/L (98-107); Glucose 124 mg/dL (74-99); Non-African American GFR(CKD) 27 (>60 ml/min/1.73 sqM); Potassium 5.3 mmol/L (3.5-5.1); Sodium 134 mmol/L (137-145)
== END | disposition home or self-care (01) ==
LOC: LABWHC1 13:53
PROVIDERS: ATTEND Internal Medicine Nephrology
DX: N18.3 Chronic kidney disease, stage 3 (moderate) (principal)
CPT/HCPCS: 36415; 80069

== ENCOUNTER → 2020-09-15 | Outpatient (CLI) | payer MEDICARE, BC ==
[~2020-09-15] MED LIST changes: +DARBEPOETIN ALFA 25 MCG/0.42 ML SYRINGE SQ NR; -DARBEPOETIN ALFA 25 MCG/0.42 ML SYRINGE SQ ONE
[2020-09-15 14:16] VITALS: BP 125/53; PULSE 75; RESP 16; TEMP 97.4
[2020-09-15 14:26] LABS: MCH 31.3 pg (25.0-35.0); MCHC 31.8 g/dL (31.0-37.0); MCV 98.6 fL (80.0-100.0); Platelet Count 395 k/uL (150-450); RBC 2.23 m/uL (3.80-5.40); RDW 14.1 % (11.5-15.5); WBC 6.7 k/uL (3.8-10.6)
== END | disposition home or self-care (01) ==
LOC: PROCWHC3 13:40
PROVIDERS: ATTEND Internal Medicine Nephrology
DX: N18.30 Chronic kidney disease, stage 3 unspecified (principal); D63.1 Anemia in chronic kidney disease
CPT/HCPCS: 85027; 96372; 36415; J0881

== ENCOUNTER → 2020-09-25 | Outpatient (CLI) | payer MEDICARE, BC ==
--- NOTE | 2020-09-25 10:30 | MR ---
EXAMINATION TYPE: MR lumbar spine wo con DATE OF EXAM: 09/25/2020 COMPARISON: NONE HISTORY: Spinal stenosis, lumbar pain TECHNIQUE: T1 and T2 axial and sagittal images of the lumbar spine are submitted. FINDINGS: There is no abnormal signal seen within the visualized spinal cord or paraspinal soft tissu es. Diffuse heterogeneous marrow signal is nonspecific but likely discogenic. Bilateral renal cyst no jah. At T11-T12 images only include the sagittal sequences. Severe degenerative disc disease with sagittal disc bulging noted. T12-L1 there is a sagittal disc bulging greater laterally to the right with moderate right foraminal encroachment. Minimal central disc bulging with facet arthropathy and severe degenerative disc diseas e but no canal stenosis. At L1-2 there is degenerative disc disease with circumferential disc bulging greater laterally to the right with moderate bilateral foraminal encroachment greater on the right. Facet hypertrophic change s and ligamentum flavum hypertrophy are seen. Mild effacement of thecal sac. At L2-3 there is severe degenerative disc disease with discogenic marrow changes and broad-based disc protrusion. Facet arthropathy contributes to moderate to severe canal stenosis with lateral recess s tenosis and moderate to severe bilateral foraminal encroachment. There is a retrolisthesis of 2 mm of L2 relative to L3 At L3-4 there is degenerative disc disease. Broad-based disc bulging with facet arthropathy and ligam entum flavum hypertrophy. Mild central stenosis and moderate bilateral foraminal encroachment. At L4-5 there is severe degenerative disc disease with advanced facet arthropathy and ligamentum flav um hypertrophy. There is a anterolisthesis of L4 on L5 with broad-based disc protrusion. Moderate to severe canal stenosis and bilateral foraminal encroachment. At L5-S1 there is severe degenerative disc disease with broad-based disc herniation resulting in comp ression of the thecal sac. Hypertrophic facet changes with moderate to severe bilateral foraminal enc roachment. IMPRESSION: 1. Large broad-based disc herniation L5-S1 with compression of the thecal sac and moderate to severe bilateral foraminal encroachment. 2. Multilevel severe degenerative disc disease with grade 1 anterolisthesis L4 and L5. Disc protrusio n at this level with hypertrophic facet arthropathy results in moderate to severe canal stenosis and bilateral foraminal encroachment. 3. There is additional multilevel disc bulging or protrusion with multilevel canal stenosis and shahla inal encroachment as discussed above. 4. heterogeneous marrow signal is nonspecific could be seen with marrow reconversion correlate clinic ally to exclude space occupying marrow process or lymphoproliferative disorder.
== END | disposition home or self-care (01) ==
LOC: RADMRIMAIN 09:41
PROVIDERS: ATTEND Internal Medicine Geriatric Medicine
DX: M48.061 Spinal stenosis, lumbar region without neurogenic claudication (principal); M51.27 Other intervertebral disc displacement, lumbosacral region; M51.26 Other intervertebral disc displacement, lumbar region; M51.36 Other intervertebral disc degeneration, lumbar region; M43.16 Spondylolisthesis, lumbar region; M47.816 Spondylosis without myelopathy or radiculopathy, lumbar region
CPT/HCPCS: 72148

== ENCOUNTER → 2020-10-05 | Outpatient (CLI) | payer MEDICARE, BC ==
[~2020-10-05] MED LIST changes: -DARBEPOETIN ALFA 25 MCG/0.42 ML SYRINGE SQ NR; +DARBEPOETIN ALFA 25 MCG/0.42 ML SYRINGE SQ ONE; +SODIUM CHLORIDE 0.9% 500 ML 500 ML in EMPTY BAG 1 BAG IV PRN; +SODIUM FERRIC GLUCONAT-SUCROSE 125 MG in SODIUM CHLORIDE 0.9% 100 ML IVPB ONE
[2020-10-05 10:03] LABS: HCT 26.1 % (34.0-46.0); HGB 8.4 gm/dL (11.4-16.0); MCH 31.6 pg (25.0-35.0); MCHC 32.2 g/dL (31.0-37.0); MCV 98.1 fL (80.0-100.0); Mean Platelet Volume 6.3; Platelet Count 399 k/uL (150-450); RBC 2.66 m/uL (3.80-5.40); RDW 14.7 % (11.5-15.5); WBC 4.7 k/uL (3.8-10.6)
[2020-10-05 10:04] VITALS: BP 157/74; PULSE 75; RESP 16; TEMP 98
== END | disposition home or self-care (01) ==
LOC: PROCWHC3 09:23
PROVIDERS: ATTEND Internal Medicine Geriatric Medicine
DX: D50.9 Iron deficiency anemia, unspecified (principal)
CPT/HCPCS: 85652; 85027; 96365; 96372; 36415; J2916; J0881

== ENCOUNTER → 2021-02-21 | Outpatient (CLI) | payer MEDICARE, BC ==
[2021-02-21 12:47] LABS: Creatinine,Urine Random 56.5 mg/dL
[2021-02-21 13:12] LABS: Protein/Creatinine Ratio,Urine 4.301
[2021-02-21 23:11] LABS: Basophils # (A) 0.03 X 10*3/uL (0.00-0.10); Basophils % (A) 0.6 %; Eosinophils # (A) 0.27 X 10*3/uL (0.04-0.35); Eosinophils % (A) 5.6 %; HCT 32.4 % (37.2-46.3); HGB 10.2 g/dL (12.0-15.0); Lymphocytes # (A) 0.67 X 10*3/uL (0.90-5.00); Lymphocytes % (A) 13.9 %; MCH 31.6 pg (27.0-32.0); MCHC 31.5 g/dL (32.0-37.0); MCV 100.3 fL (80.0-97.0); Mean Platelet Volume 9.3 fL (9.5-12.2); Monocytes # (A) 0.72 X 10*3/uL (0.20-1.00); Monocytes % (A) 14.9 %; Neutrophils # (A) 3.13 X 10*3/uL (1.80-7.70); Neutrophils % (A) 64.8 %; Platelet Count 365 X 10*3/uL (140-440); RBC 3.23 X 10*6/uL (4.10-5.20); RDW 15.9 % (11.5-14.5); WBC 4.83 X 10*3/uL (4.50-10.00)
[2021-02-22 03:56] LABS: % Iron Saturation 14.83 (12.00-45.00); African American GFR (CKD) 33.1 (60.0-200.0); Albumin 4.1 g/dL (3.80-4.90); Anion Gap 8.9 mmol/L (4.00-12.00); BUN/Creat Ratio 18.82 Ratio (12.00-20.00); Carbon Dioxide 25.1 mmol/L (21.6-31.8); Non-African American GFR(CKD) 28.6 (60.0-200.0); Phosphorus 4.3 mg/dL (2.4-5.1); Potassium 5.1 mmol/L (3.5-5.5)
[2021-02-22 04:05] LABS: Ferritin 97.8 ng/mL (10.0-291.0)
== END | disposition home or self-care (01) ==
LOC: LABWHC1 11:43
PROVIDERS: ATTEND Internal Medicine Nephrology
DX: N18.30 Chronic kidney disease, stage 3 unspecified (principal); D64.9 Anemia, unspecified
CPT/HCPCS: 36415; 80069; 82306; 82570; 82728; 83540; 83550; 83970; 84156; 84466; 85025

== ENCOUNTER → 2021-03-07 | Outpatient (CLI) | payer MEDICARE, BC ==
[2021-03-07 23:49] LABS: Total Volume 24 Hour,Urine 1700 mL
[2021-03-08 03:35] LABS: African American GFR (CKD) 24.3 (60.0-200.0); Anion Gap 10.5 mmol/L (4.00-12.00); BUN/Creat Ratio 21.36 Ratio (12.00-20.00); Calcium 9.1 mg/dL (8.7-10.3); Carbon Dioxide 24.5 mmol/L (21.6-31.8); Non-African American GFR(CKD) 20.9 (60.0-200.0); Potassium 5.1 mmol/L (3.5-5.5)
[2021-03-08 17:40] LABS: Creatinine 24 Hour,Urine 0.68 g/24Hr (0.80-1.80)
[2021-03-08 17:55] LABS: Total Protein 24 Hour,Urine 1448.4 mg/24Hr
== END | disposition home or self-care (01) ==
LOC: LABWHC1 13:29
PROVIDERS: ATTEND Internal Medicine Nephrology
DX: N18.32 Chronic kidney disease, stage 3b (principal); R80.9 Proteinuria, unspecified
CPT/HCPCS: 36415; 80048; 81050; 82570; 84156

== ENCOUNTER → 2021-03-24 | Outpatient (CLI) | payer MEDICARE, BC ==
--- NOTE | 2021-03-24 17:41 | MR ---
EXAMINATION TYPE: MR cspine/tspine wo con DATE OF EXAM: 03/24/2021 COMPARISON: None HISTORY: Neck and mid back pain for several years. History of cervical surgery. Multiplanar multiecho imaging of the cervical and thoracic spine was performed with no contrast. There is metal artifact from anterior fusion surgery from C4 to C7. There is 5 mm anterior subluxatio n of C7 in relation to T1. There is narrowing of C6 C7 T1 disc space. There is small posterior disc h erniation at C7-T1. There is multilevel cervical spinal stenosis due to endplate spur formation and d isc bulging. Canal measures 5 mm at C3-4. Canal measures 6.5 mm at C2-3. Canal measures 6 mm at C7-T1 . There is some thinning of the cervical spinal cord at the level of the surgery. There is increased signal within the cord edema somewhat linear distribution without evidence of a mass. This is seen at C6-7 and C4-5 levels consistent with myelomalacia. There is no evidence of a syrinx. The brainstem i s intact. Skull base is intact. There is no cervical compression fracture. Thoracic vertebra have fairly normal alignment. T7-T8 there is a small posterior disc herniation with out significant impingement on the thoracic spinal cord. There is 15% wedging of T8 vertebral body. T his appears old. There are scattered foci of increased signal on the T2 and T1 images in the thoracic spine consistent with fatty marrow replacement. There is no thoracic paraspinal mass. There is no ev idence of thoracic spinal stenosis. Thoracic spinal cord has fairly normal signal pattern. At T11-12 there is posterior mild disc herniation and some narrowing of the spinal canal. Canal measures 8.5 mm and is in contact with the lower thoracic spinal cord. IMPRESSION: Multilevel cervical spine fusion surgery and multilevel cervical spinal stenosis as above. There is s ome myelomalacia in the cervical spinal cord as above. No cord mass. Spondylotic changes in the thoracic spine with small posterior disc herniations at T7-8 and T11-12 wi thout significant spinal stenosis. Old mild compression fracture of T8.
== END | disposition home or self-care (01) ==
LOC: RADMRIMAIN 12:10
PROVIDERS: ATTEND Orthopaedic Surgery Orthopaedic Surgery of the Spine
DX: M48.02 Spinal stenosis, cervical region (principal); M50.323 Other cervical disc degeneration at C6-C7 level; M50.23 Other cervical disc displacement, cervicothoracic region; G95.89 Other specified diseases of spinal cord; M48.04 Spinal stenosis, thoracic region; M51.24 Other intervertebral disc displacement, thoracic region; Z98.1 Arthrodesis status
CPT/HCPCS: 72141; 72146

== ENCOUNTER → 2021-04-26 | Outpatient (CLI) | payer MEDICARE, BC ==
--- NOTE | 2021-04-26 15:07 | US ---
EXAMINATION TYPE: US transvaginal DATE OF EXAM: 04/26/2021 COMPARISON: CT 03/26/2017 CLINICAL HISTORY: R10.2 Pelvic pain, N83.20 Ovarina cyst. hx ovarian cyst on right. Left ovary remov ed. TECHNIQUE: Transvaginal (TV) Date of LMP: DIRECTOR EDUCATIONAL RADIO EXAM MEASUREMENTS: Uterus: 4.5 x 3.3 x 2.0 cm Endometrial Stripe: 0.2 cm Right Ovary: 7.0 x 6.0 x 4.5 cm 1. Uterus: Anteverted Small in size. Heterogenous. 2. Endometrium: Fluid seen within endometrial canal 3. Right Ovary: Simple appearing cyst= 6.8 x 5.8 x 4.7 cm 4. Left Ovary: Surgically absent Spectral, color and waveform doppler imaging shows good arterial and venous flow within the right o vary; there is no evidence for ovarian torsion. 5. Bilateral Adnexa: wnl 6. Posterior cul-de-sac: free fluid IMPRESSION: 1. There is nonspecific fluid within the endometrial canal. Please correlate clinically. 2. Simple appearing right ovarian cyst in a postmenopausal woman measuring up to 6.8 cm has grown sin ce the prior CT and MRI with and without contrast may be helpful for further evaluation to more defin itively exclude neoplasm. 3. Surgically absent left ovary.
== END | disposition home or self-care (01) ==
LOC: RADUSWWP 13:55
PROVIDERS: ATTEND Obstetrics & Gynecology Obstetrics
DX: N83.201 Unspecified ovarian cyst, right side (principal); Z90.721 Acquired absence of ovaries, unilateral
CPT/HCPCS: 76830; 93976

== ENCOUNTER 2021-05-15 15:00 | Inpatient (IN) | payer MEDICARE, BC ==
[2021-05-15] MEDS ORDERED: SODIUM CHLORIDE 0.9% 1,000 ML IV STA (15:30)
[2021-05-15] MEDS ORDERED: LEVOFLOXACIN 500MG-D5W PMX 500 MG in DEXTROSE/WATER 1 100ML.BAG IVPB STA (15:37)
[2021-05-15] MEDS ORDERED: MEROPENEM 1 GM in SODIUM CHLORIDE 0.9% 100 ML IVPB STA (15:37)
[2021-05-15] MEDS ORDERED: LEVOFLOXACIN 750MG-D5W PMX 750 MG in DEXTROSE/WATER 1 150ML.BAG IVPB STA (15:41)
--- NOTE | 2021-05-15 15:43 | ED ---
Female Urogenital HPI - General Chief complaint: Urogenital Stated complaint: UTI Time Seen by Provider: 05/15/21 15:27 Source: patient Mode of arrival: ambulatory Limitations: no limitations - History of Present Illness Initial comments: 76-year-old female presents to emergency department with a chief complaint urinary tract infection. Patient reports she has been dealing with a urinary tract infection for about one month. States she continues to have dysuria with increased urgency or frequency. Does report chills but denies any fever. States recently she was out of state and went to emergency Department where she received Rocephin but her symptoms are not getting better. States she was treated with a 5 ciprofloxacin and Keflex by primary care physician with no improvement of symptoms. States she spoke to her primary care physician again who advised her to come to the emergency department for IV antibiotic accident admission. She denies any other complaints. - Related Data Home Medications Medication Instructions Recorded Confirmed Furosemide 20 mg PO DAILY 03/01/14 04/18/21 Atorvastatin [Lipitor] 10 mg PO HS 02/23/17 04/18/21 Metoprolol Tartrate [Lopressor] 50 mg PO BID 02/23/17 04/18/21 Magnesium Oxide [Mag-Ox] 250 mg PO HS 02/24/17 04/18/21 Aspirin EC [Ecotrin Low Dose] 81 mg PO DAILY 02/26/20 04/18/21 Famotidine [Pepcid] 20 mg PO DAILY 02/26/20 04/18/21 Felodipine [Felodipine ER] 10 mg PO DAILY 02/26/20 04/18/21 calcitrioL [Calcitriol] 0.25 mcg PO DAILY 02/26/20 04/18/21 Previous Rx's Medication Instructions Recorded DULoxetine HCL [Cymbalta] 60 mg PO DAILY #30 capsule. 02/29/20 Allergies Allergy/AdvReac Type Severity Reaction Status Date / Time celecoxib [From Celebrex] Allergy Rash/Hives Verified 05/15/21 15:25 cephalexin [From Keflex] Allergy Unknown Verified 05/15/21 15:25 nitrofurantoin Allergy Swelling Verified 05/15/21 15:25 [From Macrobid] nitrofurantoin Allergy Swelling Verified 05/15/21 15:25 macrocrystalline [From Macrobid] sulfamethoxazole Allergy Swelling Verified 05/15/21 15:25 [From Bactrim] trimethoprim [From Bactrim] Allergy Swelling Verified 05/15/21 15:25 Review of Systems ROS Statement: Those systems with pertinent positive or pertinent negative responses have been documented in the HPI. ROS Other: All systems not noted in ROS Statement are negative. Past Medical History Past Medical History: Eye Disorder, GI Bleed, Hyperlipidemia, Hypertension, Musculoskeletal Disorder, Osteoarthritis (OA), Renal Disease Additional Past Medical History / Comment(s): Chronic anemia, iron deficiency, chronic kidney disease stage III, diverticular disease, hyperlipidemia, osteoarthritis, osteoporosis, hypoglycemia, gout, chronic alcohol use and dependence. History of Any Multi-Drug Resistant Organisms: ESBL Date of last positivie culture/infection: 04/27/21 ESBL E.coli MDRO Source:: Urine Past Surgical History: Orthopedic Surgery, Tonsillectomy, Tubal Ligation Additional Past Surgical History / Comment(s): removal ovary, bilateral cararact removal with lens implant; cervical spinal fusion Past Anesthesia/Blood Transfusion Reactions: No Reported Reaction Past Psychological History: Anxiety Smoking Status: Never smoker Past Alcohol Use History: Occasional Past Drug Use History: None Reported - Past Family History Mother Family Medical History: Osteoarthritis (OA) Sister(s) Family Medical History: Cancer Additional Family Medical History / Comment(s): breast cancer Father Family Medical History: No Reported History Brother(s) Family Medical History: Osteoarthritis (OA) Daughter(s) Family Medical History: No Reported History Son(s) Family Medical History: No Reported History General Exam Limitations: no limitations General appearance: alert, in no apparent distress Head exam: Present: atraumatic, normocephalic, normal inspection Eye exam: Present: normal appearance, PERRL, EOMI Pupils: Present: normal accommodation ENT exam: Present: normal exam, normal oropharynx, mucous membranes moist. Absent: TM's normal bilaterally Neck exam: Present: normal inspection, full ROM. Absent: tenderness, lymphaden opathy Respiratory exam: Present: normal lung sounds bilaterally. Absent: respiratory distress, wheezes, rhonchi, stridor Cardiovascular Exam: Present: regular rate, normal rhythm, normal heart sounds. Absent: systolic murmur Extremities exam: Present: normal inspection, full ROM, normal capillary refill. Absent: tenderness, pedal edema Back exam: Present: normal inspection, full ROM. Absent: tenderness, CVA tenderness (R), CVA tenderness (L) Neurological exam: Present: alert, oriented X3 Psychiatric exam: Present: normal affect, normal mood Skin exam: Present: warm, dry, intact, normal color Course Vital Signs 05/15/21 15:23 Temperature 98.1 F Pulse Rate 70 Respiratory 16 Rate Blood Pressure 156/70 O2 Sat by Pulse 99 Oximetry Medical Decision Making - Medical Decision Making 76-year-old female presents to emergency department with a chief complaint urinary tract infection. On physical examination, patient is well-appearing with no CVA tenderness. CBC reveals no leukocytosis. Mild anemia, however this appears to be the patient's baseline. Seemed to reveals elevated BUN/creatinine, however this is very similar to her most recent laboratory work. She does have renal disease. Dr. Baez requested admission and IV antibiotics. He requested Levaquin and meropenem. I consulted with pharmacy regarding dosing, to request a 750 mg of Levaquin and 1 g of meropenem. Urine culture p ending. Renal function will monitor daily according to the inpatient pharmacist. Most recent urine culture reveals positive for E. coli and facialis. Case discussed with Dr. Meadows Infectious disease and urology consult per request of Dr. Baez. - Lab Data Result diagrams: 05/15/21 15:52 05/15/21 15:52 Lab Results 05/15/21 05/15/21 05/15/21 Range/Units 15:52 15:52 15:52 WBC 5.2 (3.8-10.6) k/uL RBC 2.91 L (3.80-5.40) m/uL Hgb 9.5 L (11.4-16.0) gm/dL Hct 28.4 L (34.0-46.0) % MCV 97.7 (80.0-100.0) fL MCH 32.6 (25.0-35.0) pg MCHC 33.4 (31.0-37.0) g/dL RDW 15.0 (11.5-15.5) % Plt Count 352 (150-450) k/uL MPV 6.9 Neutrophils % 64 % Lymphocytes % 17 % Monocytes % 12 % Eosinophils % 4 % Basophils % 1 % Neutrophils # 3.3 (1.3-7.7) k/uL Lymphocytes # 0.9 L (1.0-4.8) k/uL Monocytes # 0.6 (0-1.0) k/uL Eosinophils # 0.2 (0-0.7) k/uL Basophils # 0.0 (0-0.2) k/uL Sodium 132 L (137-145) mmol/L Potassium 5.3 H (3.5-5.1) mmol/L Chloride 102 (98-107) mmol/L Carbon Dioxide 21 L (22-30) mmol/L Anion Gap 9 mmol/L BUN 52 H (7-17) mg/dL Creatinine 2.06 H (0.52-1.04) mg/dL Est GFR (CKD-EPI)AfAm 26 (>60 ml/min/1.73 sqM) Est GFR (CKD-EPI)NonAf 23 (>60 ml/min/1.73 sqM) Glucose 98 (74-99) mg/dL Plasma Lactic Acid Omar 0.7 (0.7-2.0) mmol/L Calcium 9.3 (8.4-10.2) mg/dL Total Bilirubin 0.3 (0.2-1.3) mg/dL AST 44 H (14-36) U/L ALT 15 (4-34) U/L Alkaline Phosphatase 108 (38-126) U/L Total Protein 7.5 (6.3-8.2) g/dL Albumin 4.1 (3.5-5.0) g/dL Disposition Clinical Impression: Anemia in chronic kidney disease, UTI (urinary tract infection) Disposition: ADMITTED IP TO THIS HOSP Condition: Fair Is patient prescribed a controlled substance at d/c from ED?: No Referrals: Evan Baez MD [Primary Care Provider] - 1-2 days Time of Disposition: 16:53
[2021-05-15 16:19] LABS: Basophils % (A) 1 %; Eosinophils # (A) 0.2 k/uL (0-0.7); Eosinophils % (A) 4 %; HCT 28.4 % (34.0-46.0); HGB 9.5 gm/dL (11.4-16.0); Lymphocytes # (A) 0.9 k/uL (1.0-4.8); Lymphocytes % (A) 17 %; MCH 32.6 pg (25.0-35.0); MCHC 33.4 g/dL (31.0-37.0); MCV 97.7 fL (80.0-100.0); Mean Platelet Volume 6.9; Monocytes # (A) 0.6 k/uL (0-1.0); Monocytes % (A) 12 %; Neutrophils # (A) 3.3 k/uL (1.3-7.7); Neutrophils % (A) 64 %; Platelet Count 352 k/uL (150-450); RBC 2.91 m/uL (3.80-5.40); WBC 5.2 k/uL (3.8-10.6)
[2021-05-15 16:30] LABS: Albumin 4.1 g/dL (3.5-5.0); Calcium 9.3 mg/dL (8.4-10.2); Potassium 5.3 mmol/L (3.5-5.1); Total Bilirubin 0.3 mg/dL (0.2-1.3); Total Protein 7.5 g/dL (6.3-8.2)
[2021-05-15] MEDS ORDERED: LORazepam 2 MG/ML INJ IV PRN (16:44)
[2021-05-15] MEDS ORDERED: NALOXONE 0.4 MG/ML 1 ML VIAL IV PRN (16:44)
[2021-05-15] MEDS: SODIUM CHLORIDE 0.9% 1,000 ML IV SCH (20:20)
[2021-05-15] MEDS ORDERED: AZTREONAM 2 GM in SODIUM CHLORIDE 0.9% 100 ML IVPB ONE (21:00)
--- NOTE | 2021-05-16 07:26 | CONS ---
CONSULTATION DATE OF SERVICE: 05/15/2021 REASON FOR CONSULTATION: Recurrent urinary tract infection. HISTORY OF PRESENT ILLNESS: The patient is a 76-year-old female who apparently has been dealing with UTI for about a month in this patient who has been treated in the outpatient setting with oral Cipro. The patient has been treated with Keflex as well as Rocephin without any improvement. Patient has been complaining of urinary frequency, burning, and some suprapubic discomfort, more of a dull aching pain 3 to 4/10 no radiation. Denies having any flank pain. Some nausea but no vomiting and no diarrhea. With these symptoms, the patient has been evaluated by the ER physician. On arrival to the ER, the patient was afebrile. The patient did have a normal white count. No left shift. Creatinine was mildly elevated. Unfortunately urine was not collected. However, the patient already received a dose of Levaquin and meropenem because of her MULTIPLE ANTIBIOTIC ALLERGIES TO CEPHALEXIN, SULFA. Infectious disease was consulted for further management of antibiotic therapy. REVIEW OF SYSTEMS: Positive points have been mentioned in HPI. Rest of systems are negative. PAST MEDICAL HISTORY: Recurrent urinary tract infection, hypertension, hyperlipidemia, osteoarthritis, renal insufficiency, chronic anemia. PAST SURGICAL HISTORY: Tonsillectomy, tubal ligation, cervical spine fusion, cataract removal and lens implant. SOCIAL HISTORY: No history of smoking. Occasionally drinks. No drug use. FAMILY HISTORY: Sister with a history of breast cancer. ALLERGIES: TO SULFA, CEPHALEXIN AND CELEBREX. MEDICATIONS: The patient has received a dose of Levaquin, meropenem, on Narcan, IV fluid and Ativan. EXAMINATION: Her blood pressure is 154/70 with a pulse of 72, temperature 98.1. She is 99% on room air. GENERAL DESCRIPTION: The patient is an elderly female lying in bed in no distress. No tachypnea or accessory muscle of respiration use. HEENT: Examination shows slight pallor. No scleral icterus. Oral mucous membranes dry. NECK: Trachea central. No thyromegaly. LUNGS unlabored breathing. Clear to auscultation anteriorly. No wheeze or crackles. HEART S1, S2. Regular rate and rhythm. ABDOMEN: Soft, no tenderness. No guarding. No rigidity. EXTREMITIES: No edema of the feet. SKIN examination: No rash or mass palpable. NEUROLOGICAL: Patient is awake, alert, oriented times three. Mood and affect normal. LABS: Creatinine is 9.5, white count 5.2. BUN of 52, creatinine is 2.06. DIAGNOSTIC IMPRESSION: 1. Patient admitted to the hospital with urinary burning and frequency in this patient who did have history of recurrent urinary tract infection, failing outpatient oral antibiotic therapy. 2. Patient who does have MULTIPLE ANTIBIOTIC ALLERGIES that will limit the number of antibiotics safe to use. 3. Patient with renal insufficiency, high risk of nephrotoxicity from antibiotics. PLAN: 1. Obtain UA and culture stat. 2. We will add Azactam 2 grams q.12 hours while waiting for the culture to finalize. 3. We will obtain ultrasound kidney and bladder area. 4. We will follow on clinical condition and culture to further adjust medication if needed. Thank you for this consultation. We will follow this patient with you. MMODL / MINDYN: [id number] /
[2021-05-16] MEDS: ACETAMINOPHEN TAB 325 MG TAB PO PRN ×2 (08:37→13:43)
[2021-05-16] MEDS: AZTREONAM 1 GM in SODIUM CHLORIDE 0.9% 50 ML IVPB SCH ×2 (09:06→20:22)
[2021-05-16] MEDS: SODIUM CHLORIDE 0.9% 1,000 ML IV SCH (09:06)
--- NOTE | 2021-05-16 09:55 | US ---
EXAMINATION TYPE: US kidneys/renal and bladder DATE OF EXAM: 05/16/2021 COMPARISON: CT & US ultrasound 02/24/2017, CT abdomen and pelvis 03/26/2017 CLINICAL HISTORY: uti and bacteremia. UTI EXAM MEASUREMENTS: Right Kidney: 10.5 x 5.4 x 5.0 cm Left Kidney: 9.9 x 4.9 x 4.6 cm Right Kidney: Simple Cyst upper pole= 1.4 x 0.9 x 1.1 cm/ No evidence of hydro Left Kidney: Simple Cyst upper pole= 1.3 cm. No evidence of hydronephrosis. Difficult to visualize du e to overlying bowel gas Bladder: wnl Bilateral Jets seen: No IMPRESSION: Bilateral renal cysts.
[2021-05-16] MEDS: CHOLECALCIFEROL 25 MCG (1000 IU) TABLET PO SCH (09:56)
[2021-05-16] MEDS: FLUoxetine HCL 20 MG CAP PO SCH (09:56)
[2021-05-16] MEDS: FUROSEMIDE 20 MG TAB PO SCH (09:57)
[2021-05-16] MEDS: MAGNESIUM OXIDE 400 MG TAB PO SCH ×2 (09:57→20:23)
[2021-05-16] MEDS: amLODIPine 10 MG TAB PO SCH (09:58)
[2021-05-16] MEDS: METOPROLOL TARTRATE 50 MG TAB PO SCH ×2 (09:58→20:23)
[2021-05-16] MEDS: FAMOTIDINE 20 MG TAB PO SCH (10:11)
[2021-05-16 10:59] LABS: Appearance,Urine Clear (Clear); Bilirubin,Urine Negative (Negative); Blood,Urine Negative (Negative); Color,Urine Light Yellow; Glucose,Urine (UA) Negative (Negative); Ketones,Urine Negative (Negative); Leukocyte Esterase,Urine Negative (Negative); Nitrite,Urine Negative (Negative); Protein,Urine 1+ (Negative); Specific Gravity,Urine 1.007 (1.001-1.035); Urobilinogen,Urine <2.0 mg/dL (<2.0); WBC,Urine <1 /hpf (0-5)
--- NOTE | 2021-05-16 11:10 | P.GSCN ---
History of Present Illness Consult date: 05/16/21 History of present illness: I been asked to see this pleasant 76-year-old female for persistent urinary tract infection. The patient is interviewed at the bedside. The history dates to several weeks ago where she had symptoms of urinary tract infection. Her son-in-law, who is a physician, place her on antibiotics. No cultures obtained. She's placed on Cipro. Her symptoms persisted. She had gone to [facility] for medication. She was seen there and given Keflex. Culture was not informed there also. Her symptoms didn't get better. She is also given some intravenous antibiotics which apparently didn't help. She came back to the [place] and saw Dr. Baez who did a urine culture identified 10-50,000 E. coli in 10-50,000 enterococcus. She is admitted the hospital for further treatment to. The patient does have a history current infections. There is no history of stones. She has not had any upper tract evaluation as of late. There's been no fever. She states she's had some chills. She has had some low back pain. Is been dysuria and pressure. There has been no gross hematuria. She does have chronic back issues. She does have a history of constipation. Review of Systems All systems: negative - Constitutional Denies fever, Denies weight loss - EENT Eyes: denies blurred vision Ears, nose, mouth and throat: Denies dysphagia - Cardiovascular Denies chest pain, Denies shortness of breath - Respiratory Denies cough, Denies 7 - Gastrointestinal Reports as per HPI - Genitourinary Genitourinary: Denies dysuria, Denies hematuria - Integumentary Denies rash, Denies unusual bruising - Neurological Denies headaches, Denies syncope - Hematologic/Lymphatic Denies easy bleeding, Denies easy bruising Past Medical History Past Medical History: Eye Disorder, GI Bleed, Hyperlipidemia, Hypertension, Musculoskeletal Disorder, Osteoarthritis (OA), Renal Disease Additional Past Medical History / Comment(s): Chronic anemia, iron deficiency, chronic kidney disease stage III, diverticular disease, hyperlipidemia, osteoarthritis, osteoporosis, hypoglycemia, gout. History of Any Multi-Drug Resistant Organisms: ESBL Year Discovered:: 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 Source:: Urine Past Surgical History: Orthopedic Surgery, Tonsillectomy, Tubal Ligation Additional Past Surgical History / Comment(s): removal ovary, bilateral cararact removal with lens implant; cervical spinal fusion Past Anesthesia/Blood Transfusion Reactions: No Reported Reaction Past Psychological History: Anxiety Additional Psychological History / Comment(s): takes prozac and xanax for anxi ety Smoking Status: Former smoker Past Alcohol Use History: Occasional Additional Past Alcohol Use History / Comment(s): does drink vodka, states having 3-4 drinks on the weekend and 1-2 drinks during the week. Past Drug Use History: None Reported - Past Family History Mother Family Medical History: Osteoarthritis (OA) Sister(s) Family Medical History: Cancer Additional Family Medical History / Comment(s): breast cancer Father Family Medical History: No Reported History Brother(s) Family Medical History: Osteoarthritis (OA) Daughter(s) Family Medical History: No Reported History Son(s) Family Medical History: No Reported History Medications and Allergies Home Medications Medication Instructions Recorded Confirmed Type Furosemide 20 mg PO DAILY 03/01/14 05/15/21 History Atorvastatin [Lipitor] 10 mg PO HS 02/23/17 05/15/21 History Metoprolol Tartrate [Lopressor] 50 mg PO BID 02/23/17 05/15/21 History Magnesium Oxide [Mag-Ox] 250 mg PO HS 02/24/17 05/15/21 History Famotidine [Pepcid] 20 mg PO DAILY 02/26/20 05/15/21 History Felodipine [Felodipine ER] 10 mg PO DAILY 02/26/20 05/15/21 History calcitrioL [Calcitriol] 0.25 mcg PO MOWEFR 02/26/20 05/15/21 History Cholecalciferol [Vitamin D3 (25 25 mcg PO DAILY 05/15/21 05/15/21 History Mcg = 1000 Iu)] FLUoxetine HCL [PROzac] 40 mg PO DAILY 05/15/21 05/15/21 History lisinopriL [Zestril] 2.5 mg PO DAILY 05/15/21 05/15/21 History Allergies Allergy/AdvReac Type Severity Reaction Status Date / Time celecoxib [From Celebrex] Allergy Rash/Hives Verified 05/15/21 17:48 cephalexin [From Keflex] Allergy Unknown Verified 05/15/21 17:48 nitrofurantoin Allergy Swelling Verified 05/15/21 17:48 [From Macrobid] nitrofurantoin Allergy Swelling Verified 05/15/21 17:48 macrocrystalline [From Macrobid] sulfamethoxazole Allergy Swelling Verified 05/15/21 17:48 [From Bactrim] trimethoprim [From Bactrim] Allergy Swelling Verified 05/15/21 17:48 Surgical - Exam Vital Signs Temp Pulse Resp BP Pulse Ox 98.1 F 70 16 156/70 99 05/15/21 15:23 05/15/21 15:23 05/15/21 15:23 05/15/21 15:23 05/15/21 15:23 - General well developed, well nourished, no distress - Eyes PERRL - ENT no hearing loss - Neck trachea midline - Respiratory normal expansion, normal respiratory effort - Cardiovascular Rhythm: regular - Abdomen Abdomen: soft, non tender - Neurologic normal coordination, normal sensation - Musculoskeletal normal posture - Psychiatric oriented to time, oriented to person, oriented to place, speech is normal, memory intact Results - Labs 05/15/21 15:52 05/15/21 15:52 Abnormal Lab Results - Last 24 Hours (Table) 05/15/21 05/15/21 05/16/21 Range/Units 15:52 15:52 10:15 RBC 2.91 L (3.80-5.40) m/uL Hgb 9.5 L (11.4-16.0) gm/dL Hct 28.4 L (34.0-46.0) % Lymphocytes # 0.9 L (1.0-4.8) k/uL Sodium 132 L (137-145) mmol/L Potassium 5.3 H (3.5-5.1) mmol/L Carbon Dioxide 21 L (22-30) mmol/L BUN 52 H (7-17) mg/dL Creatinine 2.06 H (0.52-1.04) mg/dL AST 44 H (14-36) U/L Urine Protein 1+ H (Negative) Diabetes panel 05/15/21 Range/Units 15:52 Sodium 132 L (137-145) mmol/L Potassium 5.3 H (3.5-5.1) mmol/L Chloride 102 (98-107) mmol/L Carbon Dioxide 21 L (22-30) mmol/L BUN 52 H (7-17) mg/dL Creatinine 2.06 H (0.52-1.04) mg/dL Glucose 98 (74-99) mg/dL Calcium 9.3 (8.4-10.2) mg/dL AST 44 H (14-36) U/L ALT 15 (4-34) U/L Alkaline Phosphatase 108 (38-126) U/L Total Protein 7.5 (6.3-8.2) g/dL Albumin 4.1 (3.5-5.0) g/dL Calcium panel 05/15/21 Range/Units 15:52 Calcium 9.3 (8.4-10.2) mg/dL Albumin 4.1 (3.5-5.0) g/dL Pituitary panel 05/15/21 Range/Units 15:52 Sodium 132 L (137-145) mmol/L Potassium 5.3 H (3.5-5.1) mmol/L Chloride 102 (98-107) mmol/L Carbon Dioxide 21 L (22-30) mmol/L BUN 52 H (7-17) mg/dL Creatinine 2.06 H (0.52-1.04) mg/dL Glucose 98 (74-99) mg/dL Calcium 9.3 (8.4-10.2) mg/dL Adrenal panel 05/15/21 Range/Units 15:52 Sodium 132 L (137-145) mmol/L Potassium 5.3 H (3.5-5.1) mmol/L Chloride 102 (98-107) mmol/L Carbon Dioxide 21 L (22-30) mmol/L BUN 52 H (7-17) mg/dL Creatinine 2.06 H (0.52-1.04) mg/dL Glucose 98 (74-99) mg/dL Calcium 9.3 (8.4-10.2) mg/dL Total Bilirubin 0.3 (0.2-1.3) mg/dL AST 44 H (14-36) U/L ALT 15 (4-34) U/L Alkaline Phosphatase 108 (38-126) U/L Total Protein 7.5 (6.3-8.2) g/dL Albumin 4.1 (3.5-5.0) g/dL Assessment and Plan Assessment: Impression: Persistent urinary tract infection, persistent lower urinary tract symptoms. Recommendations. I suspect the problem is that she was treated with the wrong antibiotic stone given the subsequent urine cultures obtained. She probably has a resistant bacteria to Cipro, Keflex and the intravenous antibiotic given a [place]. Unfortunately I do not see any sensitivities to the most recent cultures a. Dr. Marin of infectious diseases started her on a broad-spectrum intravenous antibiotic that will probably cover the bacteria identified and the most recent culture. On ultrasound has been obtained and depending on the finding of that as a final urologic recommendations however I do suspect this is just unfortunately the issue of urine infection treated with the incorrect antibiotic without a urine culture. I will follow this patient with you.
--- NOTE | 2021-05-16 12:09 | P.HPIM ---
History of Present Illness H&P Date: 05/16/21 HISTORY OF PRESENT ILLNESS This is a 76-year-old female patient of Dr. Hamlin with past medical history of hypertension, hyperlipidemia, chronic kidney disease stage IV, osteoarthritis, osteoporosis, chronic anemia, consistent alcohol intake, history of acute GI bleed secondary to antral ulcer and gastritis requiring transfusion of 2 units of packed RBCs, generalized anxiety disorder. Patient states that she was on vacation and developed urinary tract infection was treated with IV antibiotics in the emergency center was discharged home on Keflex which she took for 3 days and developed tingling in her face and swelling in her face. She stopped taking Keflex and the swelling and tingling went away. She continues to have dysuria, low pelvic abdominal pain and flank pain along with tingling when she urinates. Patient came into [facility] emergency center for evaluation. Her WBC count was 5.2, hemoglobin 9.5, platelet count 352. Sodium 132, po tassium 5.3, chloride 103, CO2 21, BUN 52 and creatinine 2.06. Blood sugar 98. Lactic acid 0.7. Total bilirubin 0.3, AST 44, ALT 15, alkaline phosphatase 108. Renal ultrasound revealed bilateral renal cysts. Patient has been seen by Dr. Marin and recommended a urinalysis and culture which has not been obtained at this point. Patient's nurse will obtain that now. Patient started on Azactam 2 g IV every 12 hours. Patient has been seen by Dr. Shaikh and recommending antibiotics appropriate to the bacteria. Patient admitted to the [facility] floor. REVIEW OF SYSTEMS Constitutional: No fever, no chills, no night sweats. No weight change. No weakness, fatigue or lethargy. No daytime sleepiness. EENT: No headache. No blurred vision or double vision, no loss of vision. No loss of Hearing, no ringing in the ears, no dizziness. No nasal drainage or congestion. No epistaxis. No sore throat. Lungs: No shortness of breath, cough, no sputum production. No wheezing. Cardiovascular: No chest pain, no lower extremity edema. No palpitations. No paroxysmal nocturnal dyspnea. No orthopnea. No lightheadedness or dizziness. No syncopal episodes. Abdominal: Reports abdominal pain. No nausea, vomiting. No diarrhea. No constipation. No bloody or tarry stools.. No loss of appetite. Genitourinary: Reports dysuria, increased frequency, urgency. No urinary retention. Reports flank discomfort. Musculoskeletal: No myalgias. No muscle weakness, no gait dysfunction, no frequent falls. No back pain. No neck pain. Integumentary: No wounds, no lesions. No rash or pruritus. No unusual bruising. No change in hair or nails. Neurologic: No aphasia. No facial droop. No change in mentation. No head injury. No headache. No paralysis. No paresthesia. Psychiatric: No depression. No anxiety. No mood swings. Endocrine: No abnormal blood sugars. No weight change. No excessive sweating or thirst. No cold intolerance. SOCIAL HISTORY Patient was a smoker of a pack per day for 18 years ago quit 40 years ago. Patient does have history of daily alcohol intake. She does not use a walker or cane for ambulation. She is independent and lives at home with her . FAMILY HISTORY Mother at age of 88 had a history of osteoarthritis. Father at age 92 from old age. Patient has 2 brothers and one is in the F for severe osteoarthritis. Patient has 2 half-brothers. Patient has a sister survivor of breast cancer and a half-sister with no major medical problems. Patient has one daughter and one son with no major medical problems PHYSICAL EXAMINATION Gen: This is a 76-year-old female. She is resting in bed and appears to be comfortable and in no acute distress. HEENT: Head is atraumatic, normocephalic. Pupils equal, round. Sclerae is anicteric. NECK: Supple. No JVD. No lymphadenopathy. No thyromegaly. LUNGS: Clear to auscultation. No wheezes or rhonchi. No intercostal retractions. HEART: Regular rate and rhythm. No murmur. ABDOMEN: Soft. Bowel sounds are present. No masses. No tenderness. EXTREMITIES: No pedal edema. No calf tenderness. NEUROLOGICAL: Patient is awake, alert and oriented x3. Cranial nerves 2 through 12 are grossly intact. ASSESSMENT AND PLAN 1. Failed outpatient treatment of acute urinary tract infection. Urinalysis and urine culture to be obtained today. Patient is currently on Azactam. She has history of ESBL E. coli and enterococcus urine culture report from May 11. Tonsils with infectious disease and urology appreciated. 2. Hypertension, uncontrolled. Hydralazine 10 mg oral twice daily added, continue lisinopril 2.5 mg daily, amlodipine 10 mg daily, Lasix 20 mg daily, Lopressor 50 mg twice daily. 3. Hyperlipidemia. Continue atorvastatin 10 mg at bedtime. 4. Chronic kidney disease stage IV. Continue calcitriol 0.25 g Friday. 5. Gastroesophageal reflux disease with history of gastritis. Continue Pepcid 20 mg daily. 6. Generalized anxiety disorder and recurrent depression. Continue Prozac 40 mg daily. 7. Daily alcohol use. Monitor patient closely. 8. DVT prophylaxis. Heparin subcu. Patient will be admitted to the hospital for a minimum of 2 night stay. DISCHARGE PLAN Home. Impression and plan of care have been directed as dictated by the signing physician. Jocelynn Watkins nurse practitioner acting as scribe for signing physician. Past Medical History Past Medical History: Eye Disorder, GI Bleed, Hyperlipidemia, Hypertension, Musculoskeletal Disorder, Osteoarthritis (OA), Renal Disease Additional Past Medical History / Comment(s): Chronic anemia, iron deficiency, chronic kidney disease stage III, diverticular disease, hyperlipidemia, osteoarthritis, osteoporosis, hypoglycemia, gout. History of Any Multi-Drug Resistant Organisms: ESBL Date of last positivie culture/infection: 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 Source:: Urine Past Surgical History: Orthopedic Surgery, Tonsillectomy, Tubal Ligation Additional Past Surgical History / Comment(s): removal ovary, bilateral cararact removal with lens implant; cervical spinal fusion Past Anesthesia/Blood Transfusion Reactions: No Reported Reaction Past Psychological History: Anxiety Additional Psychological History / Comment(s): takes prozac and xanax for anxiety Smoking Status: Former smoker Past Alcohol Use History: Occasional Additional Past Alcohol Use History / Comment(s): does drink vodka, states having 3-4 drinks on the weekend and 1-2 drinks during the week. Past Drug Use History: None Reported - Past Family History Mother Family Medical History: Osteoarthritis (OA) Sister(s) Family Medical History: Cancer Additional Family Medical History / Comment(s): breast cancer Father Family Medical History: No Reported History Brother(s) Family Medical History: Osteoarthritis (OA) Daughter(s) Family Medical History: No Reported History Son(s) Family Medical History: No Reported History Medications and Allergies Home Medications Medication Instructions Recorded Confirmed Type Furosemide 20 mg PO DAILY 03/01/14 05/15/21 History Atorvastatin [Lipitor] 10 mg PO HS 02/23/17 05/15/21 History Metoprolol Tartrate [Lopressor] 50 mg PO BID 02/23/17 05/15/21 History Magnesium Oxide [Mag-Ox] 250 mg PO HS 02/24/17 05/15/21 History Famotidine [Pepcid] 20 mg PO DAILY 02/26/20 05/15/21 History Felodipine [Felodipine ER] 10 mg PO DAILY 02/26/20 05/15/21 History calcitrioL [Calcitriol] 0.25 mcg PO MOWEFR 02/26/20 05/15/21 History Cholecalciferol [Vitamin D3 (25 25 mcg PO DAILY 05/15/21 05/15/21 History Mcg = 1000 Iu)] FLUoxetine HCL [PROzac] 40 mg PO DAILY 05/15/21 05/15/21 History lisinopriL [Zestril] 2.5 mg PO DAILY 05/15/21 05/15/21 History Allergies Allergy/AdvReac Type Severity Reaction Status Date / Time celecoxib [From Celebrex] Allergy Rash/Hives Verified 05/15/21 17:48 cephalexin [From Keflex] Allergy Unknown Verified 05/15/21 17:48 nitrofurantoin Allergy Swelling Verified 05/15/21 17:48 [From Macrobid] nitrofurantoin Allergy Swelling Verified 05/15/21 17:48 macrocrystalline [From Macrobid] sulfamethoxazole Allergy Swelling Verified 05/15/21 17:48 [From Bactrim] trimethoprim [From Bactrim] Allergy Swelling Verified 05/15/21 17:48 Physical Exam Vitals: Vital Signs Temp Pulse Pulse Resp BP BP Pulse Ox 05/16/21 08:00 98 F 64 16 174/70 97 05/16/21 01:22 98.1 F 69 14 164/83 97 05/15/21 21:49 62 16 154/70 99 05/15/21 18:48 60 18 168/78 98 05/15/21 17:11 68 18 152/67 100 05/15/21 15:23 98.1 F 70 16 156/70 99 Intake and Output 05/15/21 05/16/21 05/16/21 22:59 06:59 14:59 Other: Voiding Method Toilet # Voids 2 Weight 51.71 kg Results CBC & Chem 7: 05/15/21 15:52 05/15/21 15:52 Labs: Abnormal Lab Results - Last 24 Hours (Table) 05/15/21 05/15/21 Range/Units 15:52 15:52 RBC 2.91 L (3.80-5.40) m/uL Hgb 9.5 L (11.4-16.0) gm/dL Hct 28.4 L (34.0-46.0) % Lymphocytes # 0.9 L (1.0-4.8) k/uL Sodium 132 L (137-145) mmol/L Potassium 5.3 H (3.5-5.1) mmol/L Carbon Dioxide 21 L (22-30) mmol/L BUN 52 H (7-17) mg/dL Creatinine 2.06 H (0.52-1.04) mg/dL AST 44 H (14-36) U/L Thrombosis Risk Factor Assmnt - Choose All That Apply Any of the Below Risk Factors Present?: Yes Other Risk Factors: Yes Each Risk Factor Represents 3 Points: Age 75 years or older Thrombosis Risk Factor Assessment Total Risk Factor Score: 3 Thrombosis Risk Factor Assessment Level: Moderate Risk
[2021-05-16] MEDS: hydrALAZINE HCL 20 MG/ML 1 ML VIAL IVP PRN (12:17)
[2021-05-16] MEDS: hydrALAZINE HCL 10 MG TAB PO SCH ×2 (12:33→20:23)
--- NOTE | 2021-05-16 16:57 | PN ---
PROGRESS NOTE DATE OF SERVICE: 05/16/2021 REASON FOR FOLLOWUP: Urinary tract infection. INTERVAL HISTORY: The patient is afebrile. The patient is breathing comfortably. The patient did mention slightly improved. No chest pain, shortness of breath or cough. No abdominal pain. No diarrhea. EXAMINATION: Blood pressure 136/73 with a pulse of 74, temperature 98.5, she is 97% on room air. General description is an elderly female lying in bed in no distress. Respiratory system: Unlabored breathing, clear to auscultation anteriorly. Heart S1, S2. Regular rate and rhythm. Abdomen soft, no tenderness. LABS: The patient did have a UA obtained which is clear. DIAGNOSTIC IMPRESSION AND PLAN: Patient admitted to the hospital with urine burning, concerning for a symptomatic urinary tract infection, failing outpatient therapy. Patient has multiple antibiotics. UA has been obtained subsequently and is clear. Currently no significant symptomatic urinary tract infection. Antibiotic can be safely discontinued. MMODL / IJN: [id number] /
[2021-05-16] MEDS: ATORVASTATIN 10 MG TAB PO SCH (20:22)
[2021-05-16] MEDS: HEPARIN SODIUM,PORCINE/PF 5,000 UNIT/0.5 ML SYRINGE SQ SCH (20:22)
--- NOTE | 2021-05-17 06:25 | P.PN ---
Subjective Progress Note Date: 05/17/21 The patient was seen for a persistent uti. Based on her histoy and eventual culture she was given the wrong antibiotic empirically. SHe is feeling better. Her renal us was normal other than benign renal cysts. Her urien is clear. I would recommend oral ab based on the e coli and entercoccus culture. I would like to see her in the office in two weeks for a cystoscopy Objective - Vital Signs Vital signs: Vital Signs Temp 98.7 F 05/17/21 01:50 Pulse 78 05/17/21 01:50 Resp 16 05/17/21 01:50 BP 158/76 05/17/21 01:50 Pulse Ox 94 L 05/17/21 01:50 Intake & Output 05/16/21 05/16/21 05/17/21 06:59 18:59 06:59 Intake Total 1050 Balance 1050 Weight 51.71 kg Intake: IV 50 Aztreonam 1 gm In Sodium 50 Chloride 0.9% 50 ml @ 16. 667 mls/hr IVPB Q12HR [facility] Rx#:[id number] Intake, IV Titration 1000 Amount Sodium Chloride 0.9% 1, 1000 000 ml @ 75 mls/hr IV . [id number] [facility] Rx#:[id number] Other: Voiding Method Toilet Toilet # Voids 2 5 - Labs CBC & Chem 7: 05/15/21 15:52 05/15/21 15:52 Labs: Abnormal Lab Results - Last 24 Hours (Table) 05/16/21 Range/Units 10:15 Urine Protein 1+ H (Negative) Microbiology - Last 24 Hours (Table) 05/15/21 15:52 Blood Culture - Preliminary Blood No Growth after 24 hours 05/15/21 15:52 Blood Culture - Preliminary Blood No Growth after 24 hours
[2021-05-17] MEDS: AZTREONAM 1 GM in SODIUM CHLORIDE 0.9% 50 ML IVPB SCH (08:27)
[2021-05-17] MEDS ORDERED: FLUoxetine HCL 20 MG CAP PO SCH (09:00)
[2021-05-17] MEDS: MAGNESIUM OXIDE 400 MG TAB PO SCH ×2 (09:30→21:19)
[2021-05-17] MEDS: CHOLECALCIFEROL 25 MCG (1000 IU) TABLET PO SCH (09:31)
[2021-05-17] MEDS: hydrALAZINE HCL 10 MG TAB PO SCH ×2 (09:32→21:19)
[2021-05-17] MEDS: FLUoxetine HCL 20 MG CAP PO SCH (09:32)
[2021-05-17] MEDS: FAMOTIDINE 20 MG TAB PO SCH (09:33)
[2021-05-17] MEDS: FUROSEMIDE 20 MG TAB PO SCH (09:34)
[2021-05-17] MEDS: amLODIPine 10 MG TAB PO SCH (09:34)
[2021-05-17] MEDS: METOPROLOL TARTRATE 50 MG TAB PO SCH ×2 (09:35→21:19)
[2021-05-17] MEDS: HEPARIN SODIUM,PORCINE/PF 5,000 UNIT/0.5 ML SYRINGE SQ SCH ×2 (09:41→21:19)
--- NOTE | 2021-05-17 13:31 | P.PN ---
Subjective Progress Note Date: 05/17/21 HISTORY OF PRESENT ILLNESS This is a 76-year-old female patient of Dr. Hamlin with past medical history of hypertension, hyperlipidemia, chronic kidney disease stage IV, osteoarthritis, osteoporosis, chronic anemia, consistent alcohol intake, history of acute GI bleed secondary to antral ulcer and gastritis requiring transfusion of 2 units of packed RBCs, generalized anxiety disorder. Patient states that she was on vacation and developed urinary tract infection was treated with IV antibiotics in the emergency center was discharged home on Keflex which she took for 3 days and developed tingling in her face and swelling in her face. She stopped taking Keflex and the swelling and tingling went away. She continues to have dysuria, low pelvic abdominal pain and flank pain along with tingling when she urinates. Patient came into [facility] emergency center for evaluation. Her WBC count was 5.2, hemoglobin 9.5, platelet count 352. Sodium 132, potassiu m 5.3, chloride 103, CO2 21, BUN 52 and creatinine 2.06. Blood sugar 98. Lactic acid 0.7. Total bilirubin 0.3, AST 44, ALT 15, alkaline phosphatase 108. Renal ultrasound revealed bilateral renal cysts. Patient has been seen by Dr. Marin and recommended a urinalysis and culture which has not been obtained at this point. Patient's nurse will obtain that now. Patient started on Azactam 2 g IV every 12 hours. Patient has been seen by Dr. Shaikh and recommending antibiotics appropriate to the bacteria. Patient admitted to the [facility] floor. 05/17: Patient states that she is still having burning with urination. She's been afebrile, heart rate 66, blood pressure 176/66, pulse ox 97% on room air. Urine culture and blood culture are in process. Her last urine culture on May 11 was positive for ESBL E. coli and enterococcus. Anticipate probable discharge in the next 24-48 hours REVIEW OF SYSTEMS Constitutional: No fever, no chills, no night sweats. No weight change. No weakness, fatigue or lethargy. No daytime sleepiness. EENT: No headache. No blurred vision or double vision, no loss of vision. No loss of Hearing, no ringing in the ears, no dizziness. No nasal drainage or congestion. No epistaxis. No sore throat. Lungs: No shortness of breath, cough, no sputum production. No wheezing. Cardiovascular: No chest pain, no lower extremity edema. No palpitations. No paroxysmal nocturnal dyspnea. No orthopnea. No lightheadedness or dizziness. No syncopal episodes. Abdominal: Denies abdominal pain. No nausea, vomiting. No diarrhea. No c onstipation. No bloody or tarry stools.. No loss of appetite. Genitourinary: Reports dysuria, increased frequency, urgency. No urinary retention. Reports flank discomfort. Musculoskeletal: No myalgias. No muscle weakness, no gait dysfunction, no frequent falls. No back pain. No neck pain. Integumentary: No wounds, no lesions. No rash or pruritus. No unusual bruising. No change in hair or nails. Neurologic: No aphasia. No facial droop. No change in mentation. No head injury. No headache. No paralysis. No paresthesia. Psychiatric: No depression. No anxiety. No mood swings. Endocrine: No abnormal blood sugars. No weight change. No excessive sweating or thirst. No cold intolerance. PHYSICAL EXAMINATION Gen: This is a 76-year-old female. She is resting in bed and appears to be comfortable and in no acute distress. HEENT: Head is atraumatic, normocephalic. Pupils equal, round. Sclerae is anicteric. NECK: Supple. No JVD. No lymphadenopathy. No thyromegaly. LUNGS: Clear to auscultation. No wheezes or rhonchi. No intercostal retractions . HEART: Regular rate and rhythm. No murmur. ABDOMEN: Soft. Bowel sounds are present. No masses. No tenderness. EXTREMITIES: No pedal edema. No calf tenderness. NEUROLOGICAL: Patient is awake, alert and oriented x3. Cranial nerves 2 through 12 are grossly intact. ASSESSMENT AND PLAN 1. Failed outpatient treatment of acute urinary tract infection. Urine culture and blood culture is in process. Patient is currently on Azactam. She has history of ESBL E. coli and enterococcus urine culture report from May 11. Consults with infectious disease and urology appreciated. 2. Hypertension, uncontrolled. Hydralazine 10 mg oral twice daily added, continue lisinopril 2.5 mg daily, amlodipine 10 mg daily, Lasix 20 mg daily, Lopressor 50 mg twice daily. 3. Hyperlipidemia. Continue atorvastatin 10 mg at bedtime. 4. Chronic kidney disease stage IV. Continue calcitriol 0.25 g Friday. 5. Gastroesophageal reflux disease with history of gastritis. Continue Pepcid 20 mg daily. 6. Generalized anxiety disorder and recurrent depression. Continue Prozac 40 mg daily. 7. Daily alcohol use. Monitor patient closely. 8. DVT prophylaxis. Heparin subcu. DISCHARGE PLAN Home. Impression and plan of care have been directed as dictated by the signing physician. Jocelynn Watkins nurse practitioner acting as scribe for signing physician. Objective - Vital Signs Vital signs: Vital Signs Temp 98 F 05/17/21 07:34 Pulse 66 05/17/21 07:48 Resp 17 05/17/21 07:48 BP 176/66 05/17/21 07:34 Pulse Ox 97 05/17/21 07:34 Intake & Output 05/16/21 05/17/21 05/17/21 18:59 06:59 18:59 Intake Total 1050 1490 Balance 1050 1490 Intake: IV 50 Aztreonam 1 gm In Sodium 50 Chloride 0.9% 50 ml @ 16. 667 mls/hr IVPB Q12HR ROSANA Rx#:[id number] Intake, IV Titration 1000 950 Amount Aztreonam 1 gm In Sodium 50 Chloride 0.9% 50 ml @ 16. 667 mls/hr IVPB Q12HR ROSANA Rx#:[id number] Sodium Chloride 0.9% 1, 1000 900 000 ml @ 75 mls/hr IV . [id number] ROSANA Rx#:[id number] Oral 540 Other: Voiding Method Toilet Toilet # Voids 5 2 - Labs CBC & Chem 7: 05/15/21 15:52 05/15/21 15:52 Labs: Abnormal Lab Results - Last 24 Hours (Table) 05/16/21 Range/Units 10:15 Urine Protein 1+ H (Negative) Microbiology - Last 24 Hours (Table) 05/15/21 15:52 Blood Culture - Preliminary Blood No Growth after 24 hours 05/15/21 15:52 Blood Culture - Preliminary Blood No Growth after 24 hours
[2021-05-17] MEDS: SODIUM CHLORIDE 0.9% 1,000 ML IV SCH ×2 (14:41→21:37)
[2021-05-17] MEDS: hydrALAZINE HCL 20 MG/ML 1 ML VIAL IVP PRN (14:44)
[2021-05-17] MEDS: ERTAPENEM 0.5 GM in SODIUM CHLORIDE 0.9% 50 ML IVPB SCH (14:44)
[2021-05-17 16:53] LABS: Appearance,Urine Clear (Clear); Bilirubin,Urine Negative (Negative); Blood,Urine Negative (Negative); Color,Urine Light Yellow; Glucose,Urine (UA) Negative (Negative); Hyaline Casts,Urine 3 /lpf (0-2); Ketones,Urine Negative (Negative); Leukocyte Esterase,Urine Negative (Negative); Mucus,Urine Rare /hpf; Nitrite,Urine Negative (Negative); PH, Urine 5.5 (5.0-8.0); Protein,Urine 1+ (Negative); RBC,Urine <1 /hpf (0-5); Specific Gravity,Urine 1.009 (1.001-1.035); Squamous Epithelial Cell,Urine 1 /hpf (0-4); Urobilinogen,Urine <2.0 mg/dL (<2.0); WBC,Urine 1 /hpf (0-5)
--- NOTE | 2021-05-17 17:35 | PN ---
PROGRESS NOTE DATE OF SERVICE: 05/17/2021 REASON FOR FOLLOWUP: Positive urine culture. INTERVAL HISTORY: Patient is afebrile. The patient complaining of some burning of urine. Patient denies any chest pain. No shortness of breath or cough. No suprapubic flank pain. No vomiting or diarrhea. PHYSICAL EXAMINATION: Blood pressure 195/80 with a pulse of 77, temperature is 97.9. She is 99% on room air. General description is an elderly female up in the chair in no distress. Respiratory system: Unlabored breathing, clear to auscultation anteriorly. Heart S1, S2. Regular rate and rhythm. Abdomen soft, no tenderness. LABS: Blood culture negative. Patient did have a urine culture done on the , which did grow ESBL E coli and Enterococcus faecalis. [place] count was only 25, . DIAGNOSTIC IMPRESSION AND PLAN: Patient admitted to the hospital with urinary symptoms, failing outpatient antibiotic therapy. The patient did have cultures done on May 11 which did show 2 different pathogens with low colony count. The patient did have a negative UA. Still having urinary symptoms. Will repeat a UA and adjust antibiotics to Invanz while waiting for repeat UA to finalize. However if repeat urine is negative, recommend no antibiotic on discharge. MMODL / IJN: [id number] /
[2021-05-17 21:01] VITALS: RESP 18
[2021-05-17] MEDS: ATORVASTATIN 10 MG TAB PO SCH (21:18)
[2021-05-18 07:35] VITALS: BP 162/71; PULSE 70; TEMP 98.1
[2021-05-18] MEDS: FAMOTIDINE 20 MG TAB PO SCH (08:22)
[2021-05-18] MEDS: CHOLECALCIFEROL 25 MCG (1000 IU) TABLET PO SCH (08:22)
[2021-05-18] MEDS: hydrALAZINE HCL 10 MG TAB PO SCH (08:22)
[2021-05-18] MEDS: FLUoxetine HCL 20 MG CAP PO SCH (08:23)
[2021-05-18] MEDS: FUROSEMIDE 20 MG TAB PO SCH (08:23)
[2021-05-18] MEDS: MAGNESIUM OXIDE 400 MG TAB PO SCH (08:24)
[2021-05-18] MEDS: amLODIPine 10 MG TAB PO SCH (08:27)
[2021-05-18] MEDS: METOPROLOL TARTRATE 50 MG TAB PO SCH (08:27)
[2021-05-18] MEDS: HEPARIN SODIUM,PORCINE/PF 5,000 UNIT/0.5 ML SYRINGE SQ SCH (08:28)
[2021-05-18] MEDS: ERTAPENEM 0.5 GM in SODIUM CHLORIDE 0.9% 50 ML IVPB SCH (10:09)
--- NOTE | 2021-05-18 11:38 | P.DS ---
Providers Date of admission: 05/15/21 15:36 Expected date of discharge: 05/18/21 Attending physician: Evan Baez Consults: 05/15/21 16:44 Consult Physician Routine Consulting Provider: Sean Shaikh Consult Reason/Comments: Persistent UTI Do you want consulting provider notified?: Yes Consult Physician Routine Consulting Provider: Hanh Marin Consult Reason/Comments: Persistent UTI Do you want consulting provider notified?: Yes Primary care physician: [facility] Course: HISTORY OF PRESENT ILLNESS This is a 76-year-old female patient of Dr. Hamlin with past medical history of hypertension, hyperlipidemia, chronic kidney disease stage IV, osteoarthritis, osteoporosis, chronic anemia, consistent alcohol intake, history of acute GI b leed secondary to antral ulcer and gastritis requiring transfusion of 2 units of packed RBCs, generalized anxiety disorder. Patient states that she was on vacation and developed urinary tract infection was treated with IV antibiotics in the emergency center was discharged home on Keflex which she took for 3 days and developed tingling in her face and swelling in her face. She stopped taking Keflex and the swelling and tingling went away. She continues to have dysuria, low pelvic abdominal pain and flank pain along with tingling when she urinates. Patient came into [facility] emergency center for evaluation. Her WBC count was 5.2, hemoglobin 9.5, platelet count 352. Sodium 132, potassium 5.3, chloride 103, CO2 21, BUN 52 and creatinine 2.06. Blood sugar 98. Lactic acid 0.7. Total bilirubin 0.3, AST 44, ALT 15, alkaline phosphatase 108. Renal ultrasound revealed bilateral renal cysts. Patient has been seen by Dr. Marin and recommended a urinalysis and culture which has not been obtained at this point. Patient's nurse will obtain that now. Patient started on Azactam 2 g IV every 12 hours. Patient has been seen by Dr. Shaikh and recommending antibiotics appropriate to the bacteria. [facility] 05/17: Patient states that she is still having burning with urination. She's been afebrile, heart rate 66, blood pressure 176/66, pulse ox 97% on room air. Urine culture and blood culture are in process. Her last urine culture on May 11 was positive for ESBL E. coli and enterococcus. Anticipate probable discharge in the next 24-48 hours 05/18: Patient states she feels some urgency. Urinalysis 2 have been negative for infection and Dr. Marin is recommended no antibiotics at this point. Patient does have follow-up plan for urology. She has been afebrile, heart rate 70, blood pressure 162/71, pulse ox 90% on room air. Patient will be discharged home today in stable condition. ASSESSMENT AND PLAN 1. Urinary symptoms without acute UTI at time of urinalysis 2. 2. Hypertension, uncontrolled. 3. Hyperlipidemia. 4. Chronic kidney disease stage IV. 5. Gastroesophageal reflux disease with history of gastritis. 6. Generalized anxiety disorder and recurrent depression. 7. Daily alcohol use, social. DISCHARGE PLAN Home. Impression and plan of care have been directed as dictated by the signing physician. Jocelynn Watkins nurse practitioner acting as scribe for signing physician. Patient Condition at Discharge: Good Plan - Discharge Summary Discharge Rx Participant: Yes New Discharge Prescriptions: No Action Furosemide 20 mg PO DAILY Atorvastatin [Lipitor] 10 mg PO HS Metoprolol Tartrate [Lopressor] 50 mg PO BID Magnesium Oxide [Mag-Ox] 250 mg PO HS Famotidine [Pepcid] 20 mg PO DAILY Felodipine [Felodipine ER] 10 mg PO DAILY calcitrioL [Calcitriol] 0.25 mcg PO MOWEFR Cholecalciferol [Vitamin D3 (25 Mcg = 1000 Iu)] 25 mcg PO DAILY FLUoxetine HCL [PROzac] 40 mg PO DAILY lisinopriL [Zestril] 2.5 mg PO DAILY Discharge Medication List Furosemide 20 mg PO DAILY 03/01/14 [History] Atorvastatin [Lipitor] 10 mg PO HS 02/23/17 [History] Metoprolol Tartrate [Lopressor] 50 mg PO BID 02/23/17 [History] Magnesium Oxide [Mag-Ox] 250 mg PO HS 02/24/17 [History] Famotidine [Pepcid] 20 mg PO DAILY 02/26/20 [History] Felodipine [Felodipine ER] 10 mg PO DAILY 02/26/20 [History] calcitrioL [Calcitriol] 0.25 mcg PO MOWEFR 02/26/20 [History] Cholecalciferol [Vitamin D3 (25 Mcg = 1000 Iu)] 25 mcg PO DAILY 05/15/21 [History] FLUoxetine HCL [PROzac] 40 mg PO DAILY 05/15/21 [History] lisinopriL [Zestril] 2.5 mg PO DAILY 05/15/21 [History] Follow up Appointment(s)/Referral(s): Evan Baez MD [Primary Care Provider] - 1-2 days (Office closed at time of discharge - please call to arrange a follow up appointment) Sean Shaikh MD [STAFF PHYSICIAN] - 06/05/21 9:00 am (cysto) Patient Instructions/Handouts: Urinary Tract Infection in Women (DC) Activity/Diet/Wound Care/Special Instructions: Start D-mannose 1 gm twice daily Discharge Disposition: HOME SELF-CARE
== END 2021-05-18 12:53 | disposition home or self-care (01) | DRG 690 ==
LOC: EC 15:00 → 4SSUR 15:36
PROVIDERS: ADMIT Internal Medicine Geriatric Medicine; ATTEND Internal Medicine Geriatric Medicine
DX: N39.0 Urinary tract infection, site not specified (principal); N18.4 Chronic kidney disease, stage 4 (severe); F33.9 Major depressive disorder, recurrent, unspecified; Z16.12 Extended spectrum beta lactamase (ESBL) resistance; D63.1 Anemia in chronic kidney disease; B96.20 Unspecified Escherichia coli [E. coli] as the cause of diseases classified elsewhere; B95.2 Enterococcus as the cause of diseases classified elsewhere; I12.9 Hypertensive chronic kidney disease with stage 1 through stage 4 chronic kidney disease, or unspecified chronic kidney disease; D50.9 Iron deficiency anemia, unspecified; E78.5 Hyperlipidemia, unspecified; N28.1 Cyst of kidney, acquired; F41.1 Generalized anxiety disorder; K57.90 Diverticulosis of intestine, part unspecified, without perforation or abscess without bleeding; K21.9 Gastro-esophageal reflux disease without esophagitis; M81.0 Age-related osteoporosis without current pathological fracture; K59.00 Constipation, unspecified; M19.90 Unspecified osteoarthritis, unspecified site; Z79.899 Other long term (current) drug therapy; Z87.440 Personal history of urinary (tract) infections; Z86.19 Personal history of other infectious and parasitic diseases; Z87.891 Personal history of nicotine dependence; Z90.89 Acquired absence of other organs; Z98.51 Tubal ligation status; Z98.1 Arthrodesis status; Z87.39 Personal history of other diseases of the musculoskeletal system and connective tissue; Z90.721 Acquired absence of ovaries, unilateral; Z98.42 Cataract extraction status, left eye; Z98.41 Cataract extraction status, right eye; Z96.1 Presence of intraocular lens; Z87.19 Personal history of other diseases of the digestive system; Z86.69 Personal history of other diseases of the nervous system and sense organs; Z72.89 Other problems related to lifestyle; Z98.890 Other specified postprocedural states; Z88.6 Allergy status to analgesic agent; Z88.1 Allergy status to other antibiotic agents; Z88.2 Allergy status to sulfonamides; Z80.3 Family history of malignant neoplasm of breast; Z82.61 Family history of arthritis
CPT/HCPCS: 76770; 80053; 81001; 83605; 85025; 87040; 96365; 99284

== ENCOUNTER → 2021-06-08 | Outpatient (CLI) | payer MEDICARE, BC ==
[2021-06-08 16:31] LABS: Creatinine,Urine Random 67.9 mg/dL; Protein/Creatinine Ratio,Urine 2.548
[2021-06-09 06:38] LABS: African American GFR (CKD) 24.1 (60.0-200.0); Albumin 3.9 g/dL (3.80-4.90); Anion Gap 10.4 mmol/L (4.00-12.00); BUN/Creat Ratio 18.64 Ratio (12.00-20.00); Calcium 9.4 mg/dL (8.7-10.3); Carbon Dioxide 22.6 mmol/L (21.6-31.8); Non-African American GFR(CKD) 20.8 (60.0-200.0); Phosphorus 4.8 mg/dL (2.4-5.1); Potassium 5.5 mmol/L (3.5-5.5)
== END | disposition home or self-care (01) ==
LOC: LABWHC1 15:15
PROVIDERS: ATTEND Internal Medicine Nephrology
DX: N18.32 Chronic kidney disease, stage 3b (principal); D63.1 Anemia in chronic kidney disease
CPT/HCPCS: 36415; 80069; 82570; 82728; 83540; 84156; 84466

== ENCOUNTER → 2021-10-09 | Outpatient (CLI) | payer MEDICARE, BC ==
[2021-10-09 15:30] LABS: Creatinine,Urine Random 41.7 mg/dL; Protein/Creatinine Ratio,Urine 3.861
[2021-10-09 18:32] LABS: Basophils # (A) 0.04 X 10*3/uL (0.00-0.10); Basophils % (A) 0.7 %; Eosinophils # (A) 0.33 X 10*3/uL (0.04-0.35); Eosinophils % (A) 6.2 %; HCT 29.8 % (37.2-46.3); Lymphocytes # (A) 0.73 X 10*3/uL (0.90-5.00); Lymphocytes % (A) 13.6 %; MCH 29.6 pg (27.0-32.0); MCHC 30.2 g/dL (32.0-37.0); Mean Platelet Volume 9.2 fL (9.5-12.2); Monocytes # (A) 0.81 X 10*3/uL (0.20-1.00); Monocytes % (A) 15.1 %; Neutrophils # (A) 3.44 X 10*3/uL (1.80-7.70); Neutrophils % (A) 64.2 %; Platelet Count 378 X 10*3/uL (140-440); RBC 3.04 X 10*6/uL (4.10-5.20); WBC 5.36 X 10*3/uL (4.50-10.00)
[2021-10-09 19:34] LABS: % Iron Saturation 15.88 (12.00-45.00); African American GFR (CKD) 24.1 (60.0-200.0); Anion Gap 11.2 mmol/L (10.00-18.00); BUN/Creat Ratio 20.86 Ratio (12.00-20.00); Blood Urea Nitrogen 45.9 mg/dL (9.0-27.0); Calcium 9.5 mg/dL (8.7-10.3); Carbon Dioxide 22.8 mmol/L (20.0-27.5); Ferritin 84.1 ng/mL (10.0-291.0); Non-African American GFR(CKD) 20.8 (60.0-200.0)
== END | disposition home or self-care (01) ==
LOC: LABWHC1 13:38
PROVIDERS: ATTEND Internal Medicine Nephrology
DX: N18.4 Chronic kidney disease, stage 4 (severe) (principal); D63.1 Anemia in chronic kidney disease
CPT/HCPCS: 36415; 80069; 82306; 82570; 82728; 83540; 83550; 83970; 84156; 85025

== ENCOUNTER → 2022-02-06 | Outpatient (CLI) | payer MEDICARE, BC ==
[2022-02-06 17:13] LABS: Creatinine,Urine Random 47.7 mg/dL
[2022-02-06 17:24] LABS: Protein/Creatinine Ratio,Urine 5.66
[2022-02-06 18:03] LABS: Basophils # (A) 0.03 X 10*3/uL (0.00-0.10); Basophils % (A) 0.5 %; Eosinophils # (A) 0.28 X 10*3/uL (0.04-0.35); Eosinophils % (A) 4.9 %; HCT 34.2 % (37.2-46.3); HGB 10.3 g/dL (12.0-15.0); Immature Grans, Automated 0.2 %; Lymphocytes # (A) 0.75 X 10*3/uL (0.90-5.00); Lymphocytes % (A) 13.1 %; MCH 30.2 pg (27.0-32.0); MCHC 30.1 g/dL (32.0-37.0); MCV 100.3 fL (80.0-97.0); Monocytes % (A) 13.9 %; NRBC Per 100 WBC 0 /100 WBCS (0.0-0.0); Neutrophils # (A) 3.87 X 10*3/uL (1.80-7.70); Neutrophils % (A) 67.4 %; Platelet Count 345 X 10*3/uL (140-440); RBC 3.41 X 10*6/uL (4.10-5.20); RDW 16.3 % (11.5-14.5); WBC 5.74 X 10*3/uL (4.50-10.00)
[2022-02-06 18:33] LABS: African American GFR (CKD) 24.6 (60.0-200.0); Albumin 4.2 g/dL (3.8-4.9); Anion Gap 10.9 mmol/L (10.00-18.00); BUN/Creat Ratio 17.41 Ratio (12.00-20.00); Blood Urea Nitrogen 37.6 mg/dL (9.0-27.0); Calcium 9.5 mg/dL (8.7-10.3); Carbon Dioxide 22.8 mmol/L (20.0-27.5); Non-African American GFR(CKD) 21.3 (60.0-200.0); Phosphorus 3.8 mg/dL (2.4-5.1); Potassium 5.3 mmol/L (3.5-5.5)
[2022-02-06 22:33] LABS: Protein, Total 7.5 g/dL (6.2-8.2)
[2022-02-07 14:39] LABS: Albumin 3.84 g/dL (3.80-4.90); Gamma Globulin 1.34 g/dL (0.70-1.50)
[2022-02-07 14:45] LABS: Free Kappa Lt Chain Qnt, Serum 12.49 mg/dL (0.33-1.94); Free Lambda Lt Chain Qnt, Seru 6.06 mg/dL (0.57-2.63)
== END | disposition home or self-care (01) ==
LOC: LABWHC1 13:22
PROVIDERS: ATTEND Internal Medicine Nephrology
DX: N18.4 Chronic kidney disease, stage 4 (severe) (principal); D63.1 Anemia in chronic kidney disease; R80.9 Proteinuria, unspecified
CPT/HCPCS: 36415; 80069; 82306; 82570; 82728; 83540; 83883; 83970; 84156; 84165; 84466; 85025; 86038

== ENCOUNTER → 2022-03-08 | Outpatient (CLI) | payer MEDICARE, BC ==
[2022-03-08 23:06] LABS: African American GFR (CKD) 20.6 (60.0-200.0); Albumin 3.9 g/dL (3.8-4.9); Anion Gap 11.2 mmol/L (10.00-18.00); BUN/Creat Ratio 18.04 Ratio (12.00-20.00); Blood Urea Nitrogen 45.1 mg/dL (9.0-27.0); Carbon Dioxide 21.8 mmol/L (20.0-27.5); Magnesium 2.8 mg/dL (1.5-2.4); Non-African American GFR(CKD) 17.8 (60.0-200.0); Phosphorus 4.5 mg/dL (2.4-5.1); Potassium 5.1 mmol/L (3.5-5.5)
== END | disposition home or self-care (01) ==
LOC: LABWHC1 13:54
PROVIDERS: ATTEND Internal Medicine Nephrology
DX: N18.4 Chronic kidney disease, stage 4 (severe) (principal)
CPT/HCPCS: 36415; 80069; 83735

== ENCOUNTER → 2022-03-13 | Outpatient (CLI) | payer MEDICARE, BC ==
--- NOTE | 2022-03-14 19:22 | MM ---
Reason for Exam: Screening (asymptomatic). Last mammogram was performed 1 year(s) and 4 month(s) ago. Patient History: Menarche at age 9. First Full-Term at age 22. Right ovary removed at age 37. Postmenopausal. Estrogen, starting at age 56 for 1 year, 1 month. 05/24/1998, Benign Excisional Biopsy on the right side. Sister had breast cancer, age 63. Risk Values: Nelly 5 year model risk: 4.3%. NCI Lifetime model risk: 7.5%. Prior Study Comparison: 10/16/2017 Bilateral Screening Mammogram, [facility]. 11/05/2019 Bilateral MG 3D screening mammo w/cad, [place]. 11/23/2020 Bilateral MG 3D screening mammo w/cad, [place]. Tissue Density: The breast tissue is heterogeneously dense. This may lower the sensitivity of mammography. Findings: Analyzed By CAD. There is benign bilateral renal cyst and vascular calcifications. Slight progressive improvement course/dystrophic calcifications central right breast. A 1.2 cm focal asymmetry lateral right breast, approximately 3:00 position is more defined. Further evaluation is recommended. Overall Assessment: Incomplete: need additional imaging evaluation, BI-RAD 0 Management: Special View Mammogram of the left breast. Additional views left breast to include spot 3-D CC, spot 3-D MLO, and 3-D ML views. Targeted left breast ultrasound for any persisting at the modality. Electronically signed and approved by: Jose Maria Andrew M.D. Radiologist
== END | disposition home or self-care (01) ==
LOC: RADMAMWWP 15:58
PROVIDERS: ATTEND Internal Medicine Geriatric Medicine
DX: Z12.31 Encounter for screening mammogram for malignant neoplasm of breast (principal); Z78.0 Asymptomatic menopausal state; Z80.3 Family history of malignant neoplasm of breast; Z90.721 Acquired absence of ovaries, unilateral
CPT/HCPCS: 77063; 77067

== ENCOUNTER → 2022-03-21 | Outpatient (CLI) | payer MEDICARE, BC ==
--- NOTE | 2022-03-21 11:22 | MM ---
Reason for Exam: Additional evaluation requested from abnormal screening. Last screening mammogram was performed less than 1 month ago. Patient History: Menarche at age 9. First Full-Term at age 22. Right ovary removed at age 37. Postmenopausal. Estrogen, starting at age 56 for 1 year, 1 month. 05/24/1998, Benign Excisional Biopsy on the right side. Sister had breast cancer, age 63. Risk Values: Nelly 5 year model risk: 4.3%. NCI Lifetime model risk: 7.5%. Prior Study Comparison: 11/05/2019 Bilateral MG 3D screening mammo w/cad, [place]. 11/23/2020 Bilateral MG 3D screening mammo w/cad, [place]. 03/13/2022 Bilateral MG 3D screening mammo w/cad, [facility]. Tissue Density: Left: The breast tissue is heterogeneously dense. This may lower the sensitivity of mammography. Findings: Analyzed By CAD. Mammogram There appears to be partial dispersion of a new irregular oval density in the upper outer aspect left breast. This is persistent on the medial lateral view. Technique: Method: Targeted. Findings: The upper outer quadrant of the left breast, the axilla of the left breast and the retroareolar of the left breast were scanned. There is near regular hypoechoic area with lobulation. Vascularity is adjacent. Finding is suspicious. Ultrasound-guided core biopsy recommended. Overall Assessment: Suspicious, BI-RAD 4 Assessment: MG 3D work up w/cad LT - Left: Suspicious, BI-RAD 4. US breast workup limited LT - Left: Suspicious, BI-RAD 4. Management: Ultrasound Core Biopsy of the left breast. A clinical breast exam by your physician is recommended on an annual basis and results should be correlated with mammographic findings. Results were given to the patient verbally at the time of exam. Electronically signed and approved by: Jair Marquis D.O. Radiologis
== END | disposition home or self-care (01) ==
LOC: RADMAMWWP 10:16
PROVIDERS: ATTEND Internal Medicine Geriatric Medicine
DX: R92.8 Other abnormal and inconclusive findings on diagnostic imaging of breast (principal); Z78.0 Asymptomatic menopausal state; Z80.3 Family history of malignant neoplasm of breast
CPT/HCPCS: 77065; 76642; G0279; 77061

== ENCOUNTER → 2022-03-28 | Outpatient (CLI) | payer MEDICARE, BC ==
[2022-03-28 11:02] VITALS: BP 150/72; PULSE 69; RESP 18; TEMP 98
--- NOTE | 2022-03-28 11:33 | P.GSHP ---
History of Present Illness H&P Date: 03/28/22 Chief Complaint: abnormal left breast ultrasound Danae is a 76 year old white female seen in consultation for DR. Baez regarding an abnormal left breast ultrasound. The patient has not noted any lumps masses or nodules of concern in either breast. Her initial mammogram was a screening mammogram performed on 6121. Following this it was recommended she undergo a left breast mammogram which was performed and 6921. This revealed an area of irregularity in the upper outer aspect. A targeted ultrasound was recommended. This was performed on the same date. This revealed an area of concern in the region and an ultrasound-guided core biopsy was recommended. The patient has not noted any nipple discharge or skin changes. Caffeine: none nicotine: stopped 40 years ago, used to smoke 1 PPD/30 years chocolate: occasional BCP: less than 1 year hormones: estrogen: less than one at menopause Family History: sister: breast cancer; at 60 Hormonal History: menarche: 9 , breast fed: no, age at first : 22 menopause: 38, one ovary removed and then went into menopause Surgical History: tubaligation one ovary removed cervical fusion cataracts bilateral Medical History: kidney disease HTN Social History: nicotine: as above alcohol: several times/week drugs: none - Constitutional Constitutional: Reports sweats - EENT Eyes: denies blurred vision, denies pain Ears: deny: decreased hearing, tinnitus Ears, nose, mouth and throat: Denies headache, Denies sore throat - Breasts Breasts: bilateral: as per HPI - Cardiovascular Comment: HTN Cardiovascular: Denies chest pain, Denies shortness of breath - Respiratory Respiratory: Denies cough, Denies 7 - Gastrointestinal Comment: peptic ulcer disease in past Gastrointestinal: Denies abdominal pain, Denies diarrhea, Denies nausea, Denies vomiting - Genitourinary (Female) Comment: 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 [employer] Genitourinary: Denies dysuria, Denies hematuria - Menstruation Menstruation: Reports postmenopausal - Musculoskeletal Comment: arthritis - Integumentary Integumentary: Reports pruritus - Neurological Neurological: Denies numbness, Denies weakness - Psychiatric Psychiatric: Denies anxiety, Denies depression - Endocrine Endocrine: Reports weight change, Denies fatigue - Hematologic/Lymphatic Comment: none - Allergic/Immunologic Allergic/Immunologic: Reports as per HPI Past Medical History Past Medical History: Eye Disorder, GI Bleed, Hyperlipidemia, Hypertension, Musculoskeletal Disorder, Osteoarthritis (OA), Renal Disease Additional Past Medical History / Comment(s): Chronic anemia, iron deficiency, chronic kidney disease stage III, diverticular disease, hyperlipidemia, osteoar thritis, osteoporosis, hypoglycemia, gout. History of Any Multi-Drug Resistant Organisms: ESBL Date of last positivie culture/infection: 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 Source:: Urine Past Surgical History: Orthopedic Surgery, Tonsillectomy, Tubal Ligation Additional Past Surgical History / Comment(s): removal ovary, bilateral cararact removal with lens implant; cervical spinal fusion Past Anesthesia/Blood Transfusion Reactions: No Reported Reaction Past Psychological History: Anxiety Additional Psychological History / Comment(s): takes prozac and xanax for anxiety Smoking Status: Never smoker Past Alcohol Use History: Occasional Additional Past Alcohol Use History / Comment(s): does drink vodka, states having 3-4 drinks on the weekend and 1-2 drinks during the week. Past Drug Use History: None Reported - Past Family History Mother Family Medical History: Osteoarthritis (OA) Sister(s) Family Medical History: Cancer Additional Family Medical History / Comment(s): breast cancer Father Family Medical History: No Reported History Brother(s) Family Medical History: Osteoarthritis (OA) Daughter(s) Family Medical History: No Reported History Son(s) Family Medical History: No Reported History Medications and Allergies Home Medications Medication Instructions Recorded Confirmed Type Furosemide 40 mg PO DAILY 03/01/14 03/28/22 History Atorvastatin [Lipitor] 10 mg PO HS 02/23/17 03/28/22 History Metoprolol Tartrate [Lopressor] 50 mg PO BID 02/23/17 03/28/22 History Magnesium Oxide [Mag-Ox] 250 mg PO HS 02/24/17 03/28/22 History Famotidine [Pepcid] 20 mg PO DAILY 02/26/20 03/28/22 History Felodipine [Felodipine ER] 10 mg PO DAILY 02/26/20 03/28/22 History calcitrioL [Calcitriol] 0.25 mcg PO MOWEFR 02/26/20 03/28/22 History FLUoxetine HCL [PROzac] 40 mg PO DAILY 05/15/21 03/28/22 History hydrALAZINE HCL [Apresoline] 25 mg PO BID 03/21/22 03/28/22 History Allergies Allergy/AdvReac Type Severity Reaction Status Date / Time celecoxib [From Celebrex] Allergy Rash/Hives Verified 03/28/22 11:04 cephalexin [From Keflex] Allergy Unknown Verified 03/28/22 11:04 nitrofurantoin Allergy Swelling Verified 03/28/22 11:04 [From Macrobid] nitrofurantoin Allergy Swelling Verified 03/28/22 11:04 macrocrystalline [From Macrobid] sulfamethoxazole Allergy Swelling Verified 03/28/22 11:04 [From Bactrim] trimethoprim [From Bactrim] Allergy Swelling Verified 03/28/22 11:04 Surgical - Exam Vital Signs Temp Pulse Resp BP Pulse Ox 98.0 F 69 18 150/72 97 03/28/22 10:59 03/28/22 10:59 03/28/22 10:59 03/28/22 10:59 03/28/22 10:59 BMI: 20.7 - General well developed, well nourished, no distress - Eyes normal ocular movement - Neck trachea midline - Respiratory normal expansion - Cardiovascular Rhythm: regular Heart Sounds: normal: S1, S2 - Abdomen Abdomen: soft, non tender, no guarding, no rigid, no rebound - Integumentary normal turgor - Neurologic no disoriented, no combative - Musculoskeletal normal gait - Psychiatric oriented to time, oriented to person, oriented to place, speech is normal, memory intact Breast Exam: BRA: 32B inspection: Bilateral grade 3 ptosis Palpation: Right breast: Multi-positional exam fibrocystic changes no dominant masses or not is of concern Right axilla: No adenopathy of concern Left breast: Multi-positional exam fibrocystic changes no dominant masses or nodules of concern Left axilla: No adenopathy of concern Results Mammogram and ultrasound results reviewed Assessment and Plan Assessment: Impression: Radiographic abnormality mammogram and ultrasound left breast upper outer quadrant Kidney disease Fibrocystic breast changes Plan: Ultrasound-guided core biopsy left breast The skin benefits of the procedure discussed with the patient and her . Risks include but are not limited to bleeding, infection, reaction to the anesthetic. Additionally if the biopsy would be felt discordant then it could be recommended that additional tissue be obtained. They understand and wish to proceed. CC: Dr. Baez
== END ==
LOC: WWCWWP 10:27
PROVIDERS: ATTEND Surgery
DX: N60.11 Diffuse cystic mastopathy of right breast (principal); N60.12 Diffuse cystic mastopathy of left breast; R92.8 Other abnormal and inconclusive findings on diagnostic imaging of breast; I12.9 Hypertensive chronic kidney disease with stage 1 through stage 4 chronic kidney disease, or unspecified chronic kidney disease; N18.30 Chronic kidney disease, stage 3 unspecified; M19.90 Unspecified osteoarthritis, unspecified site; F41.9 Anxiety disorder, unspecified; E78.5 Hyperlipidemia, unspecified; Z88.1 Allergy status to other antibiotic agents; Z88.2 Allergy status to sulfonamides; Z88.6 Allergy status to analgesic agent; Z87.891 Personal history of nicotine dependence

== ENCOUNTER → 2022-04-04 | Day surgery (SDC) | payer MEDICARE, BC ==
--- NOTE | 2022-04-10 12:28 | MM ---
Reason for Exam: Post Procedure Mammogram. Last screening mammogram was performed less than 1 month ago. Patient History: Menarche at age 9. First Full-Term at age 22. Right ovary removed at age 37. Postmenopausal. Estrogen, starting at age 56 for 1 year, 1 month. 05/24/1998, Benign Excisional Biopsy on the right side. Sister had breast cancer, age 63. Risk Values: Nelly 5 year model risk: 4.3%. NCI Lifetime model risk: 7.5%. Prior Study Comparison: 11/23/2020 Bilateral MG 3D screening mammo w/cad, [place]. 03/13/2022 Bilateral MG 3D screening mammo w/cad, [facility]. 03/21/2022 Left MG 3D work up w/cad , [facility]. Tissue Density: Left: The breast tissue is heterogeneously dense. This may lower the sensitivity of mammography. Pathology Description: Location: 3 o'clock, upper outer quadrant. Marker Left Behind. Cores: 3 Skin Nicks: 1 Gauge: 13 The procedure of ultrasound guided core biopsy was explained to the patient. Benefits, alternatives, and risks were discussed. An informed consent was then obtained. A timeout was performed. The patient was placed in supine positioning for imaging and for the procedure. The overlying skin was prepped and draped in usual sterile fashion. Lidocaine was used as anesthetic into the skin and subcutaneous tissue up to area of concern in the left breast. A small skin néstor was made with surgical scalpel. Under ultrasound guidance, a 12-gauge vacuum assisted biopsy gun device was used to obtain 3 core samples. As there was a vessel nearby additional sampling was not performed. A biopsy clip was left in lesion. Hydromark coil core marker was placed. The patient tolerated the procedure well without any immediate complication. The patient was kept in the radiology department for short stay after the procedure and then discharged home in stable condition. Impression: 1. Successful ultrasound guided core biopsy of area of concern in the left breast. Recommendations: 1. Recommendations are pending pathology results. Pathology Results: Result: Malignant, Invasive ductal carcinoma. 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 Overall Assessment: Malignant Assessment: MG diagnostic mammo LT wo CAD. - Left: Known biopsy proven malignancy, BI-RAD 6. Management: Surgical Consultation of the left breast. Electronically signed and approved by: Jair Marquis D.O. Radiologis
== END ==
LOC: RADUSWWP 12:37
PROVIDERS: ATTEND Surgery
DX: D05.12 Intraductal carcinoma in situ of left breast (principal); Z88.1 Allergy status to other antibiotic agents; Z88.2 Allergy status to sulfonamides; Z88.3 Allergy status to other anti-infective agents; Z79.899 Other long term (current) drug therapy; N18.9 Chronic kidney disease, unspecified; D63.1 Anemia in chronic kidney disease; Z87.440 Personal history of urinary (tract) infections; Z87.891 Personal history of nicotine dependence; Z80.3 Family history of malignant neoplasm of breast; Z82.61 Family history of arthritis
CPT/HCPCS: 88305; 88342; 88341; 77065; 19083; A4648

== ENCOUNTER → 2022-05-29 | Outpatient (CLI) | payer MEDICARE, BC ==
--- NOTE | 2022-05-30 10:44 | MR ---
MRI CERVICAL SPINE: CLINICAL HISTORY: Cervicalgia. TECHNIQUE: Multiplanar, multisequence imaging of the cervical spine is performed without IV contrast. COMPARISON: Prior MRI cervical spine March 24, 2021 FINDINGS: Persistent dextroconvex scoliosis centered in visualized portion of the thoracic spine. Sag ittal images of the cervical spine show the craniocervical junction to remain within normal limits. P ersistent focal volume loss in the cervical spinal cord with abnormal T2 signal greatest in appearanc e C6-C7 disc space level sagittal image 9 similar to prior. Less prominent findings on current study superiorly C5 level. Artifact from anterior fusion plate and intervertebral metallic disc cage C4-C7 levels is redemonstrated. Stable slight grade 1 retrolisthesis C2 on C3 and C3 on C4. Persistent mode rate disc space narrowing and moderate to severe anterior spurring C3-C4 level. The bone marrow signa l intensity is within normal limits. Axial images at C2-C3 level redemonstrate focal left paracentral disc protrusion effacing anterior th ecal sac with uncovertebral facet degenerative changes causing mild bilateral neural foraminal narrow ing. Axial images at C3-C4 level show broad-based left paracentral disc protrusion effacing the anterior t hecal sac of the ventral surface of spinal cord with uncovertebral facet degenerative changes causing moderate to severe left greater than right bilateral neural foraminal narrowing. Findings more promi nent from prior. Axial images at C4-C5 level show some uncovertebral facet degenerative changes greater on the left ca using [id number] left-sided neural foraminal narrowing without significant change from prior. Axial images at C5-C6 level show foraminal bony protrusions likely causing moderate bilateral neural foraminal narrowing. No significant change from prior. Axial images at C6-C7 level show foraminal bony protrusions causing moderate right greater than left bilateral neural foraminal narrowing similar to prior. Axial images at C7-T1 level show artifact from anterior fusion plate. Tiny central disc protrusion mi ldly effaces the anterior thecal sac. Patent bilateral neural foramina. IMPRESSION: Extensive surgical changes with stable alignment. Multilevel degenerative changes as deta iled above with interval degenerative progression C3-C4 level noted. Areas of myelomalacia redemonstr ated. No new areas are evident.
== END | disposition home or self-care (01) ==
LOC: RADMRIMAIN 11:11
PROVIDERS: ATTEND Orthopaedic Surgery Orthopaedic Surgery of the Spine
DX: M47.812 Spondylosis without myelopathy or radiculopathy, cervical region (principal); M50.923 Unspecified cervical disc disorder at C6-C7 level; M99.71 Connective tissue and disc stenosis of intervertebral foramina of cervical region; M43.23 Fusion of spine, cervicothoracic region
CPT/HCPCS: 72141

== ENCOUNTER 2022-07-04 12:23 | Day surgery (SDC) | payer MEDICARE, BC ==
[2022-07-03 11:40] VITALS: BMI 20.1
[~2022-07-04 12:23] MED LIST changes: -DARBEPOETIN ALFA 25 MCG/0.42 ML SYRINGE SQ ONE; +LACTATED RINGERS 1,000 ML IV SCH; +LIDOCAINE 1% (10MG/ML) FOR IV START INTRADERMA PRN; -SODIUM CHLORIDE 0.9% 500 ML 500 ML in EMPTY BAG 1 BAG IV PRN; -SODIUM FERRIC GLUCONAT-SUCROSE 125 MG in SODIUM CHLORIDE 0.9% 100 ML IVPB ONE
[2022-07-04 12:45] VITALS: RESP 18; TEMP 97.5
[2022-07-04] MEDS ORDERED: LACTATED RINGERS 1,000 ML IV ONE (12:45)
[2022-07-04] MEDS ORDERED: DEXAMETHASONE SOD PHOSPHATE 10 MG/ML 1 ML VIAL ONE (13:09)
[2022-07-04] MEDS ORDERED: IOPAMIDOL M200 10 ML VIAL ONE (13:09)
[2022-07-04] MEDS ORDERED: MIDAZOLAM 2 MG/2 ML VIAL ONE (13:09)
[2022-07-04] MEDS ORDERED: fentaNYL (PF) 50 MCG/ML 2 ML AMP ONE (13:09)
--- NOTE | 2022-07-04 13:23 | P.PCN ---
Date of Procedure: 07/04/22 Procedure(s) Performed: . PROCEDURE 1. Cervical epidural steroid injection under fluoroscopic guidance, C6-7 (fluoroscopy images available in the radiology department ) 2. Cervical epidurogram. PREOPERATIVE DIAGNOSIS: 1- Cervical Degenerative Disc Diseases 2- Cervical radiculopathy., 3-cervical spondylosis with cervical Facet arthropathy without myelopathy.4-cervical spinal stenosis POSTOPERATIVE DIAGNOSIS: : 1- Cervical Degenerative Disc Diseases , 2- Cervical radiculopathy. 3-,cervical spondylosis with cervical Facet arthropathy without myelopathy. 4-cervical spinal stenosis ANESTHESIA: moderate sedation, with Versed 1 mg and Fentanyl 50 mcg. Sedation start time : 1314 Sedation end time : 1320 EBL 0 PROCEDURE INDICATION: The patient with neck pain and radiculitis unresponsive to conservative treatment consents for procedure. PROCEDURE DESCRIPTION / TECHNIQUE: The patient was seen and identified in the preoperative area. Risks, benefits, complications, including but not limited to infections ,bleeding , allergic reactions to the medications ,and not complete pain releife, and alternatives were discussed with the patient, the patient agreed to proceed with the procedure and signed the consent. Patient was taken to the OR and time out was completed. The patient was placed in the prone position on the procedure table. A pillow was placed under the patients chest to increase the cervical interlaminar space. The cervical area was prepped and draped in the usual sterile fashion. Vital signs were closely monitored during the procedure. Conscious sedation was used during the procedure to decrease patients anxiety. Using anterior-posterior fluoroscopy, the C6-7 interlaminar space was identified and the skin over this site was marked and then infiltrated with 1% lidocaine subcutaneously. Subsequently, a 20-gauge 3-1/2-inch Tuohy epidural needle was inserted and advanced toward the epidural space by means of the ``hanging-drop technique and guided by AP and lateral fluoroscopy. The correct needle position in the epidural space was verified with the injection of 2 mL of the water soluble contrast dye Isovue-200 and observing an excellent epidurogram with the epidural spread of the dye, after negative aspiration for blood and CSF and in the absence of paresthesias. then, mixture containing 15 mg Dexamethasone and 2 ml of preservative-free normal saline injected and a washout of epidurogram was seen. Needle was withdrawn intact, skin was cleansed, and bandages were applied. Complications= none. Disposition= patient was placed in supine position and transferred to the recovery room area in stable condition and there was no evidence of upper or lower extremity motor or sensory deficit after the procedure patient was discharged from recovery room after discharge criteria met and home discharge instructions was given by the staff and patient will follow with the pain clinic in 2-4 weeks
[2022-07-04] MEDS ORDERED: IV FLUID CONTINUATION 1,000 ML IV ONE (13:25)
[2022-07-04 13:43] VITALS: BP 131/66; PULSE 68
--- NOTE | 2022-07-04 13:59 | FL ---
Fluoroscopy HISTORY: Pain 3 seconds fluoroscopy time supplied to the referring clinician. 1 intraoperative C-arm images docume nt the procedure. See dictated report from anesthesia.
== END 2022-07-04 14:03 | disposition home or self-care (01) ==
LOC: ORPAIN 12:23
PROVIDERS: ATTEND Specialist
DX: M50.123 Cervical disc disorder at C6-C7 level with radiculopathy (principal); M47.22 Other spondylosis with radiculopathy, cervical region; M48.02 Spinal stenosis, cervical region; Z88.1 Allergy status to other antibiotic agents
CPT/HCPCS: 62321; J2250; J1100; J3010; Q9966

== ENCOUNTER → 2022-07-15 | Outpatient (CLI) | payer MEDICARE, BC ==
[2022-07-15 12:46] VITALS: BP 152/70; PULSE 72; RESP 18
--- NOTE | 2022-07-15 15:42 | P.PAINPG ---
Objective - Vital Signs Vital signs: Vital Signs Temp Pulse 72 07/15/22 12:39 Resp 18 07/15/22 12:39 BP 152/70 07/15/22 12:39 Pulse Ox 152 H 07/15/22 12:39 FiO2 Intake & Output 07/14/22 07/15/22 07/15/22 18:59 06:59 18:59 Weight 49.895 kg PQRS Measure Charge Sheet Mode of Arrival: Ambulatory Comment: A 77 yr old female with a history of severe and chronic low back pain secondary to lumbar degenerative disc diseases and lumbar spondylosis with facet arthropathy without myelopathy presents today for evaluation s/p R Paramedial CLAY C6-7. Pt states she experienced 75% pain relief x 2 wks s/p procedure. Pain level is currently at 2/10 in intensity, constant, localized in the lower neck & R jaw/ R shoulder, dull/ achy in character. Pain is provoked by laying in one position too long such as at bedtime. Pain is alleviated with PT in 2020, topicals, injections, heat, home exercise regimen as tolerated, repositioning and rest. Interventional pain procedures completed include CLAY C6-7 x1. Patient is currently on CBD topicals Patient denies any side effects of the medication(s), denies excessive drowsiness or sleepiness, denies suicidal ideation and reports that the current pain medication is helping to control the pain and improve activities of daily living. Patient denies any motor or sensory deficits. Patient denies any fever or night sweats, denies any change in the bowel movements or urination. Physical Examination: -Constitutional: Cooperative. Not in acute distress . - Neurologic: Cranial nerve II to XII intact. No focal neurological deficits. - Psychatric: Alert & oriented x 3. Matching mood & appropriate affect. Judgment and insight intact. - Musculoskeletal: Cervical spine: Muscle bulk/ tone/ strength in the bilateral upper extremities normal Vertebral body tenderness to palpation over Spurling test positive Distraction test positive Facet loading test positive Thoracic spine Muscle bulk / tone/ strength in the bilateral paraspinal muscles normal Vertebral body tender to palpation over Facet loading test positive Lumbar spine: Motor bulk/ tone/ strength lower extremities , thigh and legs : 5/5 Deep tendon reflexes : Normal Knee Jerk. Normal Ankle Jerk . Vertebral body tenderness to palpation over Lumbar Facet Loading Test positive Straight Leg Raise: positive at 30 degrees right side/ left side Gaenslen's Test positive Sacral spine : Severe tenderness over the Sacroiliac joint: right side / left side Range of motion: Flexion of the lumbar spine <60 degrees Range of motion: Extension of the lumbar spine <20 degrees Gaenslen's Test positive Franco's Test positive Pepper test: positive right side / left side Thigh Thrust Test Sacral Thrust Test Assessment and plan: Chronic neck pain secondary to cervical degenerative disc disease , spondylosis with facet arthropathy without myelopathy Pt received substantial pain relief w prior procedure. She will manage residual pain w home pain mgmt modalities and may return to this clinic on an as needed basis. Risks, benefits of procedure discussed and pt verbalized understanding. Denies anticoagulant use or medical history of diabetes. All patient questions answered I have spent less than 30 minutes on patient care today. Dr Maria was available by phone for the evaluation of this patient. The time was used to review the medical records including relevant urine studies and Prescription history (MAPs), review of the available imaging, evaluation and examination of the patient, coordination of care with the medical staff and if applicable referring physicians, as well as creation of the medical record - Pain Location Neck Non-Pharmacological Interventions: Heat, Home Exercise, Inactivity, Physical Therapy, Position/Reposition, Stretching Pharmacological Interventions: Epidural, Topical Medication PQRS Narrative: Smoking Status Former smoker Blood Pressure 152/70 Pain Intensity [Neck] 2 Scale Used Numeric (1 - 10) Hx Alcohol Use (MH) Yes: 6 DRINKS PER WEEK Home Medications: Ambulatory Orders Furosemide 40 mg PO DAILY 03/01/14 Atorvastatin [Lipitor] 10 mg PO HS 02/23/17 Metoprolol Tartrate [Lopressor] 50 mg PO BID 02/23/17 Magnesium Oxide [Mag-Ox] 250 mg PO HS 02/24/17 Famotidine [Pepcid] 20 mg PO DAILY 02/26/20 Felodipine [Felodipine ER] 10 mg PO DAILY 02/26/20 calcitrioL [Calcitriol] 0.25 mcg PO MOWEFR 02/26/20 FLUoxetine HCL [PROzac] 40 mg PO DAILY 05/15/21 hydrALAZINE HCL [Apresoline] 25 mg PO BID 03/21/22 Procrit Unknown Dose INJ [id number] 07/03/22 Controlled Substance Measures - Controlled Substance Measures Is patient prescribed a controlled substance at discharge?: No
== END ==
LOC: PNWHC3 12:28
PROVIDERS: ATTEND Specialist
DX: M50.30 Other cervical disc degeneration, unspecified cervical region (principal); G89.29 Other chronic pain; M47.812 Spondylosis without myelopathy or radiculopathy, cervical region; F10.90 Alcohol use, unspecified, uncomplicated; Z88.8 Allergy status to other drugs, medicaments and biological substances; Z88.2 Allergy status to sulfonamides; Z87.891 Personal history of nicotine dependence
CPT/HCPCS: 99211

== ENCOUNTER → 2022-11-06 | Outpatient (CLI) | payer MEDICARE, BC ==
--- NOTE | 2022-11-06 14:14 | BD ---
EXAMINATION TYPE: Axial Bone Density DATE OF EXAM: 11/06/2022 COMPARISON: 07.22.2016 CLINICAL HISTORY: 77 years year old Female. ICD-10 CODE: M81.0 AGRE RELATED OSTEOPOROSIS W/O CURRENT PATHOL Height: 61 Weight: 104 FRAX RISK QUESTIONS: Family History (Parent hip fracture): YES Secondary Osteoporosis: YES 3. Menopause before 45: YES Current Tobacco Use: IN THE PAST RISK FACTORS HISTORY OF: Family History of Osteoporosis: YES, MOTHER AND SISTER, MOTHER HIP FX Postmenopausal woman: YES, AT 37 YRS OLD Take estrogen and/or progesterone medications: TRIED, NOT FOR LONG Lost more than 2 inches in height since high school: YES Frequent falls: ELDERLY Hyperparathyroidism: NO Adrenal Insufficiency: NO MEDICATIONS: Additional Medications: BP MEDS, PROZAC, XANAX, STATIN FOR CHOLESTEROL, Additional History: HYPERTENSION, CHOLESTEROL, ANXIETY EXAM MEASUREMENTS: Bone mineral densitometry was performed using the roomlinx System. Bone mineral density as measured about the Lumbar spine is: ----- L1-L4(G/cm2): 1.444 T Score Values are as follows: ----- L1: 0.1 ----- L2: 3.9 ----- L3: 3.0 ----- L4: 2.1 ----- L1-L4: 1.8 Bone mineral density has: Decreased -1.5% since study of: 07.22.2016 Bone mineral density about the R hip (g/cm2): 0.970 Bone mineral density about the L hip (g/cm2): 0.963 T Score values are as follows: -----R Neck: -1.1 -----L Neck: -1.3 -----R Total: -0.3 -----L Total: -0.4 Bone mineral density has: Decreased -7.2% since study of: 07.22.2016 FRAX%s: The graph provided illustrates a 18.5% chance for a major osteoporotic fx and a 10.2% chance for the hips probability for fx in 10 years time. IMPRESSION: Osteopenia (T Score between -2.5 and -1). There is slightly increased risk of fracture and the patient may be considered for treatment. Re-Screen 2-5 years. NOTE: T-SCORE=SD OF THE YOUNG ADULT MEAN.
== END | disposition home or self-care (01) ==
LOC: RADBDWWP 11:16
PROVIDERS: ATTEND Internal Medicine Geriatric Medicine
DX: M85.852 Other specified disorders of bone density and structure, left thigh (principal); M81.0 Age-related osteoporosis without current pathological fracture; Z78.0 Asymptomatic menopausal state
CPT/HCPCS: 77080

== ENCOUNTER 2023-01-03 07:20 | Inpatient (IN) | payer MEDICARE, BC ==
[2023-01-03] MEDS ORDERED: NITROGLYCERIN SL TABS 0.4 MG TAB SUBLINGUAL STA (07:26)
[2023-01-03] MEDS ORDERED: ONDANSETRON 4 MG/2 ML VIAL IVP STA (07:28)
--- NOTE | 2023-01-03 07:34 | ED ---
SOB HPI - General Chief Complaint: Shortness of Breath Stated Complaint: JUVE Time Seen by Provider: 01/03/23 07:25 Source: EMS Mode of arrival: EMS Limitations: no limitations - History of Present Illness Initial Comments: 77-year-old female past history of NH, hypertension and presents emergency room with shortness of breath. EMS states that the patient woke up short of breath. When they arrived the patient was extremely anxious with oxygen saturations in the 70s. They placed her on a nonrebreather with improvement into the 80s. She was for hypertensive and received a nitro. States that they do believe she has a history of congestive heart failure. Patient not on any diuretics. Admits to some chest pain. Admits to frothy sputum production. No sick contacts. No fevers. Admits to nausea without vomiting. No lower extremity edema. No history of DVT or PE. HPI is limited because the patient's current condition Upon further discussion with the patient's he states that patient had similar episode on in [place]. She was taken to the hospital where she was found to have a CHF exacerbation. Echo was performed which demonstrated an EF of 35-40%. She did have an N STEMI and heart cath was performed which demonstrated a 90% lesion in her LAD which was stented. She did have worsening kidney function after the heart cath however recovered without her having dialysis. states that today's plan was to visit a couple dialysis facilities. Also had an appointment with Dr. Stinson for a peritoneal c atheter placed. Patient awoke this morning with such sudden onset of symptoms that EMS was called. - Related Data Home Medications Medication Instructions Recorded Confirmed Famotidine [Pepcid] 20 mg PO DAILY 02/26/20 01/03/23 FLUoxetine HCL [PROzac] 40 mg PO DAILY 05/15/21 01/03/23 Aspirin 81 mg PO DAILY 01/03/23 01/03/23 Atorvastatin [Lipitor] 40 mg PO DAILY 01/03/23 01/03/23 Cholecalciferol [Vitamin D3 (25 25 mcg PO DAILY 01/03/23 01/03/23 Mcg = 1000 Iu)] Clopidogrel [Plavix] 75 mg PO DAILY 01/03/23 01/03/23 Metoprolol Succinate [Toprol XL] 50 mg PO DAILY 01/03/23 01/03/23 Sevelamer [Renvela] 1,600 mg PO AC-TID 01/03/23 01/03/23 calcitrioL [Calcitriol] 0.25 mcg PO DAILY 01/03/23 01/03/23 Previous Rx's Medication Instructions Recorded Bumetanide [BUMEX] 1 mg PO DAILY #30 tablet 01/04/23 Sodium Bicarbonate Tab 650 mg PO BID #60 tab 01/04/23 amLODIPine [Norvasc] 10 mg PO DAILY #30 tab 01/04/23 Allergies Allergy/AdvReac Type Severity Reaction Status Date / Time celecoxib [From Celebrex] Allergy Rash/Hives Verified 01/03/23 09:01 cephalexin [From Keflex] Allergy Unknown Verified 01/03/23 09:01 nitrofurantoin Allergy Swelling Verified 01/03/23 09:01 [From Macrobid] nitrofurantoin Allergy Swelling Verified 01/03/23 09:01 macrocrystalline [From Macrobid] sulfamethoxazole Allergy Swelling Verified 01/03/23 09:01 [From Bactrim] trimethoprim [From Bactrim] Allergy Swelling Verified 01/03/23 09:01 Review of Systems ROS Statement: Those systems with pertinent positive or pertinent negative responses have been documented in the HPI. ROS Other: All systems not noted in ROS Statement are negative. Past Medical History Past Medical History: Eye Disorder, GI Bleed, Hyperlipidemia, Hypertension, Myocardial Infarction (NH), Musculoskeletal Disorder, Osteoarthritis (OA), Renal Disease Additional Past Medical History / Comment(s): Chronic anemia, iron deficiency, chronic kidney disease stage III, diverticular disease, hyperlipidemia, osteoarthritis, osteoporosis, hypoglycemia, gout. Last Myocardial Infarction Date:: 11/27/22 History of Any Multi-Drug Resistant Organisms: None Reported, ESBL Date of last positivie culture/infection: 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 Source:: Urine Past Surgical History: Heart Catheterization With Stent, Orthopedic Surgery, To nsillectomy, Tubal Ligation Additional Past Surgical History / Comment(s): removal ovary, bilateral cararact removal with lens implant; cervical spinal fusion, cervical steroid injection Past Anesthesia/Blood Transfusion Reactions: No Reported Reaction Date of Last Stent Placement:: 11/27/22 Past Psychological History: Anxiety Smoking Status: Former smoker - Past Family History Mother Family Medical History: Osteoarthritis (OA) Sister(s) Family Medical History: Cancer Additional Family Medical History / Comment(s): breast cancer Father Family Medical History: No Reported History Brother(s) Family Medical History: Osteoarthritis (OA) Daughter(s) Family Medical History: No Reported History Son(s) Family Medical History: No Reported History General Exam Limitations: no limitations General appearance: alert, anxious Head exam: Present: atraumatic, normocephalic, normal inspection Eye exam: Present: normal appearance, PERRL, EOMI. Absent: scleral icterus, conjunctival injection, periorbital swelling ENT exam: Present: normal exam, mucous membranes moist Neck exam: Present: normal inspection. Absent: tenderness, meningismus, lymphadenopathy Respiratory exam: Present: respiratory distress, rales, accessory muscle use, decreased breath sounds. Absent: wheezes, rhonchi, stridor Cardiovascular Exam: Present: normal rhythm, tachycardia, normal heart sounds. Absent: systolic murmur, diastolic murmur, rubs, gallop, clicks GI/Abdominal exam: Present: soft, normal bowel sounds. Absent: distended, tenderness, guarding, rebound, rigid Extremities exam: Present: normal inspection, full ROM, normal capillary refill. Absent: tenderness, pedal edema, joint swelling, calf tenderness Back exam: Present: normal inspection Neurological exam: Present: alert, oriented X3, CN II-XII intact Psychiatric exam: Present: normal mood, anxious Skin exam: Present: warm, dry, intact, normal color. Absent: rash Course Vital Signs 01/03/23 01/03/23 01/03/23 07:20 07:21 07:28 Temperature Pulse Rate 115 H Respiratory 30 H Rate Blood Pressure 195/120 O2 Sat by Pulse 91 L Oximetry Fraction of 50 50 Inspired Oxygen (FIO2) 01/03/23 01/03/23 01/03/23 07:35 07:44 08:09 Temperature 97.7 F Pulse Rate 99 93 Respiratory 30 H 33 H 26 H Rate Blood Pressure 180/104 176/102 O2 Sat by Pulse 95 98 Oximetry Fraction of Inspired Oxygen (FIO2) 01/03/23 01/03/23 01/03/23 08:56 09:30 09:31 Temperature Pulse Rate 91 90 Respiratory 23 22 Rate Blood Pressure 160/94 159/90 O2 Sat by Pulse 99 99 Oximetry Fraction of 40 Inspired Oxygen (FIO2) 01/03/23 01/03/23 01/03/23 10:00 10:42 11:00 Temperature Pulse Rate 84 84 82 Respiratory 21 20 21 Rate Blood Pressure 155/94 150/83 154/91 O2 Sat by Pulse 99 99 100 Oximetry Fraction of Inspired Oxygen (FIO2) 01/03/23 01/03/23 01/03/23 11:09 12:00 12:25 Temperature Pulse Rate 82 Respiratory 18 Rate Blood Pressure 158/97 O2 Sat by Pulse 100 100 Oximetry Fraction of 40 Inspired Oxygen (FIO2) 01/03/23 01/03/23 13:00 14:01 Temperature Pulse Rate 87 90 Respiratory 20 18 Rate Blood Pressure 157/83 150/75 O2 Sat by Pulse 100 99 Oximetry Fraction of Inspired Oxygen (FIO2) Procedures - ABG Interpretation Ph: 7.36 PCO2: 36.8 PO2: 119 Bicarbonate: 20.9 Interpretation: normal Medical Decision Making - Medical Decision Making Was pt. sent in by a medical professional or institution (, PA, COOLING ROOM ATTENDANT, urgent care, hospital, or residential...) When possible be specific @ -N Did you speak to anyone other than the patient for history (EMS, parent, family, police, friend...)? What history was obtained from this source @ -, EMS Did you review nursing and triage notes (agree or disagree)? Why? @ -I reviewed and agree with nursing and triage notes Were old charts reviewed (outside hosp., previous admission, EMS record, old EKG, old radiological studies, urgent care reports/EKG's, residential records)? Report findings @ -No old charts were reviewed Differential Diagnosis (chest pain, altered mental status, abdominal pain women, abdominal pain men, vaginal bleeding, weakness, fever, dyspnea, syncope, headache, dizziness, GI bleed, back pain, seizure, CVA, palpatations, mental health, musculoskeletal)? @ -COPD exacerbation, CHF exacerbation, asthma, cancer, pe, pulmonary fibrosis EKG interpreted by me (3pts min.). @ -As above X-rays interpreted by me (1pt min.). @ -yes CT interpreted by me (1pt min.). @ -None done U/S interpreted by me (1pt. min.). @ -None done What testing was considered but not performed or refused? (CT, X-rays, U/S, labs)? Why? @ -None What meds were considered but not given or refused? Why? @ -None Did you discuss the management of the patient with other professionals (professionals i.e. , PA, COOLING ROOM ATTENDANT, lab, RT, psych nurse, neonatal social worker, walnut dehydrator operator, teacher, parachute/combatant diver officer, case monitor)? Give summary @ -Dr. Medel, Admitting physician Was smoking cessation discussed for >3mins.? @ -No Was critical care preformed (if so, how long)? @ -yes, 40 minutes Were there social determinants of health that impacted care today? How? (Homelessness, low income, unemployed, alcoholism, drug addiction, transportation, low edu. Level, literacy, decrease access to med. care, fdc, rehab)? @ -No Was there de-escalation of care discussed even if they declined (Discuss DNR or withdrawal of care, Hospice)? DNR status @ -No What co-morbidities impacted this encounter? (DM, HTN, Smoking, COPD, CAD, Cancer, CVA, ARF, Chemo, Hep., AIDS, mental health diagnosis, sleep apnea, morbid obesity)? @ -CHF, CKD Was patient admitted / discharged? Hospital course, mention meds given and route, prescriptions, significant lab abnormalities, going to OR and other pertinent info. @ -Upon arrival patient is placed into trauma 2. History and physical exam is performed. She is transitioned to BiPAP. She does have significant rales at the bases. Was given a SL nitro here. Portable chest x-ray is performed which demonstrates infiltrate right perihilar and right upper lobe. Laboratory studies were conducted and reviewed. GFR is 11. BNP 52,600. She was given a dose of Bumex. Recommended admission. Spoke with sound physician's as son in law does request this group. Will place nephrology and cardiology consult Undiagnosed new problem with uncertain prognosis? @ -No Drug Therapy requiring intensive monitoring for toxicity (Heparin, Nitro, Insul in, Cardizem)? @ -No Were any procedures done? @ -No Diagnosis/symptom? @ -acute bipap dependant resp failure, chf exacerbation, pedro/ckd Acute, or Chronic, or Acute on Chronic? @ -acute on chronic Uncomplicated (without systemic symptoms) or Complicated (systemic symptoms)? @ -complicated Side effects of treatment? @ -No Exacerbation, Progression, or Severe Exacerbation? @ -yes Poses a threat to life or bodily function? How? (Chest pain, USA, NH, pneumonia, PE, COPD, DKA, ARF, appy, cholecystitis, CVA, Diverticulitis, Homicidal, Suicidal, threat to staff... and all critical care pts) @ -yes - Lab Data Result diagrams: 01/04/23 08:14 01/04/23 08:14 Lab Results 01/03/23 01/03/23 01/03/23 Range/Units 07:40 07:40 07:40 WBC 8.0 (3.8-10.6) k/uL RBC 2.97 L (3.80-5.40) m/uL Hgb 9.2 L (11.4-16.0) gm/dL Hct 29.3 L (34.0-46.0) % MCV 98.6 (80.0-100.0) fL MCH 31.0 (25.0-35.0) pg MCHC 31.4 (31.0-37.0) g/dL RDW 16.5 H (11.5-15.5) % Plt Count 493 H (150-450) k/uL MPV 7.4 Neutrophils % 69 % Lymphocytes % 17 % Monocytes % 6 % Eosinophils % 4 % Basophils % 1 % Neutrophils # 5.5 (1.3-7.7) k/uL Lymphocytes # 1.4 (1.0-4.8) k/uL Monocytes # 0.5 (0-1.0) k/uL Eosinophils # 0.3 (0-0.7) k/uL Basophils # 0.1 (0-0.2) k/uL Anisocytosis Slight Macrocytosis Slight PT 9.9 (9.0-12.0) sec INR 0.9 (<1.2) APTT 21.5 L (22.0-30.0) sec Sodium 136 L (137-145) mmol/L Potassium 5.2 H (3.5-5.1) mmol/L Chloride 107 (98-107) mmol/L Carbon Dioxide 20 L (22-30) mmol/L Anion Gap 9 mmol/L BUN 37 H (7-17) mg/dL Creatinine 3.65 H (0.52-1.04) mg/dL Est GFR (CKD-EPI)AfAm 13 (>60 ml/min/1.73 sqM) Est GFR (CKD-EPI)NonAf 11 (>60 ml/min/1.73 sqM) Glucose 220 H (74-99) mg/dL Lactic Ac Sepsis Rflx Plasma Lactic Acid Omar (0.7-2.0) mmol/L Calcium 9.5 (8.4-10.2) mg/dL Total Bilirubin 0.4 (0.2-1.3) mg/dL AST 27 (14-36) U/L ALT 16 (4-34) U/L Alkaline Phosphatase 85 (38-126) U/L Troponin I (0.000-0.034) ng/mL NT-Pro-B Natriuret Pep pg/mL Total Protein 6.8 (6.3-8.2) g/dL Albumin 3.7 (3.5-5.0) g/dL Coronavirus (PCR) (Not Detectd) Influenza Type A RNA (Not Detectd) Influenza Type B (PCR) (Not Detectd) 01/03/23 01/03/23 01/03/23 Range/Units 07:40 07:40 07:40 WBC (3.8-10.6) k/uL RBC (3.80-5.40) m/uL Hgb (11.4-16.0) gm/dL Hct (34.0-46.0) % MCV (80.0-100.0) fL MCH (25.0-35.0) pg MCHC (31.0-37.0) g/dL RDW (11.5-15.5) % Plt Count (150-450) k/uL MPV Neutrophils % % Lymphocytes % % Monocytes % % Eosinophils % % Basophils % % Neutrophils # (1.3-7.7) k/uL Lymphocytes # (1.0-4.8) k/uL Monocytes # (0-1.0) k/uL Eosinophils # (0-0.7) k/uL Basophils # (0-0.2) k/uL Anisocytosis Macrocytosis PT (9.0-12.0) sec INR (<1.2) APTT (22.0-30.0) sec Sodium (137-145) mmol/L Potassium (3.5-5.1) mmol/L Chloride (98-107) mmol/L Carbon Dioxide (22-30) mmol/L Anion Gap mmol/L BUN (7-17) mg/dL Creatinine (0.52-1.04) mg/dL Est GFR (CKD-EPI)AfAm (>60 ml/min/1.73 sqM) Est GFR (CKD-EPI)NonAf (>60 ml/min/1.73 sqM) Glucose (74-99) mg/dL Lactic Ac Sepsis Rflx Plasma Lactic Acid Omar 2.5 H* (0.7-2.0) mmol/L Calcium (8.4-10.2) mg/dL Total Bilirubin (0.2-1.3) mg/dL AST (14-36) U/L ALT (4-34) U/L Alkaline Phosphatase (38-126) U/L Troponin I 0.046 H* (0.000-0.034) ng/mL NT-Pro-B Natriuret Pep 44199 pg/mL Total Protein (6.3-8.2) g/dL Albumin (3.5-5.0) g/dL Coronavirus (PCR) (Not Detectd) Influenza Type A RNA (Not Detectd) Influenza Type B (PCR) (Not Detectd) 01/03/23 01/03/23 01/03/23 Range/Units 07:40 07:40 08:10 WBC (3.8-10.6) k/uL RBC (3.80-5.40) m/uL Hgb (11.4-16.0) gm/dL Hct (34.0-46.0) % MCV (80.0-100.0) fL MCH (25.0-35.0) pg MCHC (31.0-37.0) g/dL RDW (11.5-15.5) % Plt Count (150-450) k/uL MPV Neutrophils % % Lymphocytes % % Monocytes % % Eosinophils % % Basophils % % Neutrophils # (1.3-7.7) k/uL Lymphocytes # (1.0-4.8) k/uL Monocytes # (0-1.0) k/uL Eosinophils # (0-0.7) k/uL Basophils # (0-0.2) k/uL Anisocytosis Macrocytosis PT (9.0-12.0) sec INR (<1.2) APTT (22.0-30.0) sec Sodium (137-145) mmol/L Potassium (3.5-5.1) mmol/L Chloride (98-107) mmol/L Carbon Dioxide (22-30) mmol/L Anion Gap mmol/L BUN (7-17) mg/dL Creatinine (0.52-1.04) mg/dL Est GFR (CKD-EPI)AfAm (>60 ml/min/1.73 sqM) Est GFR (CKD-EPI)NonAf (>60 ml/min/1.73 sqM) Glucose (74-99) mg/dL Lactic Ac Sepsis Rflx Y Plasma Lactic Acid Omar (0.7-2.0) mmol/L Calcium (8.4-10.2) mg/dL Total Bilirubin (0.2-1.3) mg/dL AST (14-36) U/L ALT (4-34) U/L Alkaline Phosphatase (38-126) U/L Troponin I (0.000-0.034) ng/mL NT-Pro-B Natriuret Pep pg/mL Total Protein (6.3-8.2) g/dL Albumin (3.5-5.0) g/dL Coronavirus (PCR) Not Detected (Not Detectd) Influenza Type A RNA Not Detected (Not Detectd) Influenza Type B (PCR) Not Detected (Not Detectd) - EKG Data EKG Comments: EKG demonstrates a sinus tachycardia with a rate of 106. TX interval 175. QRS 124. QTC 431. Left bundle-branch block. Negative for sgarbossa criteria. Critical Care Time Critical Care Time: Yes Critical Care Time: 40 minutes Disposition Clinical Impression: CKD (chronic kidney disease), Iron deficiency anemia, CHF exacerbation, Hypert ension, BiPAP (biphasic positive airway pressure) dependence Disposition: ADMITTED IP TO THIS HOSP Condition: Good Is patient prescribed a controlled substance at d/c from ED?: No Time of Disposition: 09:34 Decision to Admit Reason: Admit from EC Decision Date: 01/03/23 Decision Time: 09:35
[2023-01-03 07:57] LABS: Anisocytosis Slight; Basophils # (A) 0.1 k/uL (0-0.2); Basophils % (A) 1 %; Eosinophils # (A) 0.3 k/uL (0-0.7); Eosinophils % (A) 4 %; HCT 29.3 % (34.0-46.0); HGB 9.2 gm/dL (11.4-16.0); Lymphocytes # (A) 1.4 k/uL (1.0-4.8); Lymphocytes % (A) 17 %; MCHC 31.4 g/dL (31.0-37.0); MCV 98.6 fL (80.0-100.0); Macrocytosis Slight; Mean Platelet Volume 7.4; Monocytes # (A) 0.5 k/uL (0-1.0); Monocytes % (A) 6 %; Neutrophils # (A) 5.5 k/uL (1.3-7.7); Neutrophils % (A) 69 %; Platelet Count 493 k/uL (150-450); RBC 2.97 m/uL (3.80-5.40); RDW 16.5 % (11.5-15.5)
[2023-01-03 08:08] LABS: Albumin 3.7 g/dL (3.5-5.0); Calcium 9.5 mg/dL (8.4-10.2); Potassium 5.2 mmol/L (3.5-5.1); Total Bilirubin 0.4 mg/dL (0.2-1.3); Total Protein 6.8 g/dL (6.3-8.2)
[2023-01-03 08:27] LABS: INR 0.9 (<1.2); Prothrombin Time 9.9 sec (9.0-12.0)
[2023-01-03 08:37] LABS: Partial Thromboplastin Time 21.5 sec (22.0-30.0)
--- NOTE | 2023-01-03 09:04 | XR ---
EXAMINATION TYPE: XR chest 1V portable DATE OF EXAM: 01/03/2023 HISTORY: Shortness of breath. COMPARISON: 05/26/2017 TECHNIQUE: Single view of the chest is submitted. FINDINGS: Demonstrated are scattered senescent parenchymal change. Infiltrate noted about the right perihilar region and right upper lobe. The heart is stable. Hilar and mediastinal structures are within normal limits. Degenerative changes are seen of the dorsal spine. IMPRESSION: 1. Infiltrate noted about the right perihilar region and right upper lobe.
[2023-01-03] MEDS ORDERED: NALOXONE 0.4 MG/ML 1 ML VIAL IV PRN (09:38)
[2023-01-03] MEDS ORDERED: BUMETANIDE 0.25 MG/ML 4 ML VIAL IVP STA (09:40)
[2023-01-03 11:18] LABS: ABG Base Excess -4.5 mmol/L; ABG HCO3 21 mmol/L (21-25); ABG Oxygen Saturation 99.2 % (94-97); ABG PCO2 37 mmHg (35-45); ABG PH 7.36 (7.35-7.45); ABG PO2 119 mmHg (83-108); ABG TCO2 22 mmol/L (19-24); Allen Test Performed? Yes
[2023-01-03] MEDS ORDERED: hydrALAZINE HCL 20 MG/ML 1 ML VIAL IVP PRN (13:02)
--- NOTE | 2023-01-03 13:10 | P.HPIM ---
History of Present Illness H&P Date: 01/03/23 Chief Complaint: shortness of breath Patient is a 77-year-old female with a past medical history of NV status post stent, hypertension, chronic systolic heart failure, CKD stage IV who presents to the ED with shortness of breath. Patient states that she has been having shortness of breath that started yesterday however worsened this morning when it woke her up. initially thought that she was congested so he went to go get [facility]. When he came home patient was still short of breath and was coughing up white frothy sputum, so he then called EMS. When EMS arrived patient's oxygen saturation was in the 70s. Patient was placed on a nonrebreather mask. Patient was also found to be hypertensive so she was given SL nitro. Patient then brought to the ED where she was placed on BiPAP. Patient was recently in [place] where she had an NSTEMI with stent placement in the LAD and was also diagnosed with cardiomyopathy with an EF of 35%. Since coming back to [place] patient has been established with a local director of philanthropy (Dr. Steven) and emergency room doctor (Dr. Funes). Patient denying any sick contacts or any fevers. Patient does state that she watches her diet as well as her fluid intake. However upon further questioning patient states that 2 days ago she ate food from [employer]. Patient is not on any diuretic. She states that she watches her fluid intake as instructed by her director of philanthropy. Patient was also scheduled to meet with vascular surgery for peritoneal catheter placement this week. In the ED patient's blood pressure was in the 190s systolically. She was given sublingual nitroglycerin after which her blood pressure improved. ABG was unremarkable. Patient's creatinine was 3.65 which is her baseline. Lactic acid 2.5 and repeat lactic acid 0.5 and troponin 0.046 and BNP greater than 52,000. Chest x-ray showed infiltrate in the right perihilar region and right upper lobe. Patient was given IV Bumex 1 mg. When I went to see the patient she said that she is feeling better. Review of Systems 10 ROS reviewed and are negative except as noted in HPI Past Medical History Past Medical History: Eye Disorder, GI Bleed, Hyperlipidemia, Hypertension, Myocardial Infarction (NV), Musculoskeletal Disorder, Osteoarthritis (OA), Renal Disease Additional Past Medical History / Comment(s): Chronic anemia, iron deficiency, chronic kidney disease stage III, diverticular disease, hyperlipidemia, os teoarthritis, osteoporosis, hypoglycemia, gout. Last Myocardial Infarction Date:: 11/27/22 History of Any Multi-Drug Resistant Organisms: None Reported, ESBL Date of last positivie culture/infection: 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 Source:: Urine Past Surgical History: Heart Catheterization With Stent, Orthopedic Surgery, Tonsillectomy, Tubal Ligation Additional Past Surgical History / Comment(s): removal ovary, bilateral cararact removal with lens implant; cervical spinal fusion, cervical steroid injection Past Anesthesia/Blood Transfusion Reactions: No Reported Reaction Date of Last Stent Placement:: 11/27/22 Past Psychological History: Anxiety Smoking Status: Former smoker - Past Family History Mother Family Medical History: Osteoarthritis (OA) Sister(s) Family Medical History: Cancer Additional Family Medical History / Comment(s): breast cancer Father Family Medical History: No Reported History Brother(s) Family Medical History: Osteoarthritis (OA) Daughter(s) Family Medical History: No Reported History Son(s) Family Medical History: No Reported History Medications and Allergies Home Medications Medication Instructions Recorded Confirmed Type Famotidine [Pepcid] 20 mg PO DAILY 02/26/20 01/03/23 History FLUoxetine HCL [PROzac] 40 mg PO DAILY 05/15/21 01/03/23 History Aspirin 81 mg PO DAILY 01/03/23 01/03/23 History Atorvastatin [Lipitor] 40 mg PO DAILY 01/03/23 01/03/23 History Cholecalciferol [Vitamin D3 (25 25 mcg PO DAILY 01/03/23 01/03/23 History Mcg = 1000 Iu)] Clopidogrel [Plavix] 75 mg PO DAILY 01/03/23 01/03/23 History Metoprolol Succinate [Toprol XL] 50 mg PO DAILY 01/03/23 01/03/23 History Sevelamer [Renvela] 1,600 mg PO AC-TID 01/03/23 01/03/23 History calcitrioL [Calcitriol] 0.25 mcg PO DAILY 01/03/23 01/03/23 History Allergies Allergy/AdvReac Type Severity Reaction Status Date / Time celecoxib [From Celebrex] Allergy Rash/Hives Verified 01/03/23 09:01 cephalexin [From Keflex] Allergy Unknown Verified 01/03/23 09:01 nitrofurantoin Allergy Swelling Verified 01/03/23 09:01 [From Macrobid] nitrofurantoin Allergy Swelling Verified 01/03/23 09:01 macrocrystalline [From Macrobid] sulfamethoxazole Allergy Swelling Verified 01/03/23 09:01 [From Bactrim] trimethoprim [From Bactrim] Allergy Swelling Verified 01/03/23 09:01 Physical Exam Osteopathic Statement: *. No significant issues noted on an osteopathic structural exam other than those noted in the History and Physical/Consult. Vitals: Vital Signs Temp Pulse Resp BP Pulse Ox FiO2 01/03/23 11:09 40 01/03/23 10:42 84 20 150/83 99 01/03/23 10:00 84 21 155/94 99 01/03/23 09:31 40 01/03/23 09:30 90 22 159/90 99 01/03/23 08:56 91 23 160/94 99 01/03/23 08:09 93 26 H 176/102 98 01/03/23 07:44 97.7 F 99 33 H 180/104 95 01/03/23 07:35 30 H 01/03/23 07:28 50 01/03/23 07:21 115 H 30 H 195/120 91 L 01/03/23 07:20 50 Intake and Output 01/02/23 01/03/23 01/03/23 22:59 06:59 14:59 Other: Weight 54.431 kg General: [Alert and oriented, appears chronically debilitated, elderly frail lady]. Eye: [PERRL, EOMI, normal conjunctiva]. HENT: [Normocephalic, clear tympanic membranes, normal hearing, moist oral mucosa, no scleral icterus, no sinus tenderness]. Neck: [Supple, non-tender, no carotid bruits, no JVD, no lymphadenopathy]. Lungs: [Diminished breath sounds bilaterally, non-labored respiration, patient wearing BiPAP]. Heart: [Normal rate, regular rhythm, no murmur, gallop or edema]. Abdomen: [Soft, non-tender, non-distended, normal bowel sounds, no masses]. Musculoskeletal: [Normal range of motion and strength, no tenderness or swelling]. Skin: [Skin is warm, dry and pink, no rashes or lesions]. Neurologic: [Awake, alert, and oriented X3, CN II-XII intact]. Psychiatric: [Cooperative, appropriate mood and affect]. Results CBC & Chem 7: 01/03/23 07:40 01/03/23 07:40 Labs: Abnormal Lab Results - Last 24 Hours (Table) 01/03/23 01/03/23 01/03/23 Range/Units 07:40 07:40 07:40 RBC 2.97 L (3.80-5.40) m/uL Hgb 9.2 L (11.4-16.0) gm/dL Hct 29.3 L (34.0-46.0) % RDW 16.5 H (11.5-15.5) % Plt Count 493 H (150-450) k/uL APTT 21.5 L (22.0-30.0) sec ABG pO2 (83-108) mmHg ABG O2 Saturation (94-97) % Sodium 136 L (137-145) mmol/L Potassium 5.2 H (3.5-5.1) mmol/L Carbon Dioxide 20 L (22-30) mmol/L BUN 37 H (7-17) mg/dL Creatinine 3.65 H (0.52-1.04) mg/dL Glucose 220 H (74-99) mg/dL Plasma Lactic Acid Omar (0.7-2.0) mmol/L Troponin I (0.000-0.034) ng/mL 01/03/23 01/03/23 01/03/23 Range/Units 07:40 07:40 10:23 RBC (3.80-5.40) m/uL Hgb (11.4-16.0) gm/dL Hct (34.0-46.0) % RDW (11.5-15.5) % Plt Count (150-450) k/uL APTT (22.0-30.0) sec ABG pO2 (83-108) mmHg ABG O2 Saturation (94-97) % Sodium (137-145) mmol/L Potassium (3.5-5.1) mmol/L Carbon Dioxide (22-30) mmol/L BUN (7-17) mg/dL Creatinine (0.52-1.04) mg/dL Glucose (74-99) mg/dL Plasma Lactic Acid Omar 2.5 H* 0.5 L (0.7-2.0) mmol/L Troponin I 0.046 H* (0.000-0.034) ng/mL 01/03/23 Range/Units 11:14 RBC (3.80-5.40) m/uL Hgb (11.4-16.0) gm/dL Hct (34.0-46.0) % RDW (11.5-15.5) % Plt Count (150-450) k/uL APTT (22.0-30.0) sec ABG pO2 119 H (83-108) mmHg ABG O2 Saturation 99.2 H (94-97) % Sodium (137-145) mmol/L Potassium (3.5-5.1) mmol/L Carbon Dioxide (22-30) mmol/L BUN (7-17) mg/dL Creatinine (0.52-1.04) mg/dL Glucose (74-99) mg/dL Plasma Lactic Acid Omar (0.7-2.0) mmol/L Troponin I (0.000-0.034) ng/mL Assessment and Plan Assessment: Patient is a 77-year-old female with a past medical history of NV status post stent, hypertension, chronic systolic heart failure, CKD stage IV who presents to the ED with shortness of breath. Patient admitted to the medicine service for treatment of acute hypoxic respiratory failure Acute hypoxic respiratory failure Suspect flash pulmonary edema due to hypertensive urgency Acute on chronic systolic heart failure Doubt patient has pneumonia since she has no fevers and no leukocytosis; follow up on blood culture and repeat chest x-ray in the morning. Check pro- calcitonin. We'll start antibiotics if patient has a fever. History more consistent with heart failure and pulmonary edema since patient reports orthopnea and PND and white frothy sputum and patient's BNP was elevated We'll start patient on IV Bumex 1 mg twice a day Daily weights strict I's and O's Current BMP to monitor renal function especially in the setting of chronic kidney disease stage IV Cardiology consult Nephrology consult to help manage diuretics in the setting of renal failure Wean patient off BiPAP as tolerated Hypertension urgency Resume home BP meds We'll start the patient on IV hydralazine 10 mg when necessary for systolic blood pressure greater than 170 None NV troponin elevation secondary to heart failure and renal failure Patient denying any chest pain so unlikely ACS Trend troponin 3 CK D stage IV Nephrology to follow Resume Renvela and vitamin D supplement Coronary artery disease with recent stent placement Resume aspirin and Plavix and metoprolol and atorvastatin CODE STATUS:full code DVT prophylaxis: Subcu heparin Discussed with: Patient, ER, rn Anticipated length of stay > than [address]: home A total of 50 minutes was spent on the care of this complex patient more than 50% of the time was spent in counseling and care coordination.
--- NOTE | 2023-01-03 13:12 | P.NPCON ---
History of Present Illness - Reason for Consult chronic renal failure - History of Present Illness Reason for consultation: Chronic kidney disease stage V History of present illness: Patient is a 77-year-old female seen in renal consultation for chronic kidney disease. Patient has chronic kidney disease stage V and was following with [facility] out of [place] in [place] and recently started seeing me outpatient. Patient was admitted at a hospital in [place] in November 2022 with an STEMI and underwent cardiac catheterization with stent placement. At that time she required IV diuresis. Since she left [place] she has not been on any diuretics. She states she has been making good urine without any hematuria. Denies fever or chills. No vomiting or diarrhea. Oral intake has been fair. She is interested in doing peritoneal dialysis and is awaiting PD cath placement. Patient states she was sleeping last night and suddenly developed a cough and dyspnea. Patient states she was panicking. She states her oxygen saturation was in the 70s and was placed on nonrebreather with improvement. Blood pressure was over 200 systolic and she subsequently came to the hospital. Patient states her blood pressure at home has been ranging systolic 140-150. She received nitro and 1 dose of IV Bumex and blood pressure is now in the systolic 140s. No history of diabetes. Chest x-ray showed right-sided infiltrate. Vital signs are stable. General: No acute distress. HEENT: Head exam is unremarkable. On nasal cannula. LUNGS: Breath sounds decreased. No rhonchi or wheezes. HEART: Rate and Rhythm are regular. ABDOMEN: No distention. Nontender. EXTREMITITES: No edema. Past Medical History Past Medical History: Eye Disorder, GI Bleed, Hyperlipidemia, Hypertension, Myocardial Infarction (MT), Musculoskeletal Disorder, Osteoarthritis (OA), Renal Disease Additional Past Medical History / Comment(s): Chronic anemia, iron deficiency, chronic kidney disease stage III, diverticular disease, hyperlipidemia, osteoarthritis, osteoporosis, hypoglycemia, gout. Last Myocardial Infarction Date:: 11/27/22 History of Any Multi-Drug Resistant Organisms: None Reported, ESBL Date of last positivie culture/infection: 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 Source:: Urine Past Surgical History: Heart Catheterization With Stent, Orthopedic Surgery, Tonsillectomy, Tubal Ligation Additional Past Surgical History / Comment(s): removal ovary, bilateral cararact removal with lens implant; cervical spinal fusion, cervical steroid injection Past Anesthesia/Blood Transfusion Reactions: No Reported Reaction Date of Last Stent Placement:: 11/27/22 Past Psychological History: Anxiety Smoking Status: Former smoker - Past Family History Mother Family Medical History: Osteoarthritis (OA) Sister(s) Family Medical History: Cancer Additional Family Medical History / Comment(s): breast cancer Father Family Medical History: No Reported History Brother(s) Family Medical History: Osteoarthritis (OA) Daughter(s) Family Medical History: No Reported History Son(s) Family Medical History: No Reported History Medications and Allergies Home Medications Medication Instructions Recorded Confirmed Type Famotidine [Pepcid] 20 mg PO DAILY 02/26/20 01/03/23 History FLUoxetine HCL [PROzac] 40 mg PO DAILY 05/15/21 01/03/23 History Aspirin 81 mg PO DAILY 01/03/23 01/03/23 History Atorvastatin [Lipitor] 40 mg PO DAILY 01/03/23 01/03/23 History Cholecalciferol [Vitamin D3 (25 25 mcg PO DAILY 01/03/23 01/03/23 History Mcg = 1000 Iu)] Clopidogrel [Plavix] 75 mg PO DAILY 01/03/23 01/03/23 History Metoprolol Succinate [Toprol XL] 50 mg PO DAILY 01/03/23 01/03/23 History Sevelamer [Renvela] 1,600 mg PO AC-TID 01/03/23 01/03/23 History calcitrioL [Calcitriol] 0.25 mcg PO DAILY 01/03/23 01/03/23 History Allergies Allergy/AdvReac Type Severity Reaction Status Date / Time celecoxib [From Celebrex] Allergy Rash/Hives Verified 01/03/23 09:01 cephalexin [From Keflex] Allergy Unknown Verified 01/03/23 09:01 nitrofurantoin Allergy Swelling Verified 01/03/23 09:01 [From Macrobid] nitrofurantoin Allergy Swelling Verified 01/03/23 09:01 macrocrystalline [From Macrobid] sulfamethoxazole Allergy Swelling Verified 01/03/23 09:01 [From Bactrim] trimethoprim [From Bactrim] Allergy Swelling Verified 01/03/23 09:01 Physical Exam Vitals: Vital Signs Temp Pulse Resp BP Pulse Ox FiO2 01/03/23 11:09 40 01/03/23 10:42 84 20 150/83 99 01/03/23 10:00 84 21 155/94 99 01/03/23 09:31 40 01/03/23 09:30 90 22 159/90 99 01/03/23 08:56 91 23 160/94 99 01/03/23 08:09 93 26 H 176/102 98 01/03/23 07:44 97.7 F 99 33 H 180/104 95 01/03/23 07:35 30 H 01/03/23 07:28 50 01/03/23 07:21 115 H 30 H 195/120 91 L 01/03/23 07:20 50 Intake and Output 01/02/23 01/03/23 01/03/23 22:59 06:59 14:59 Other: Weight 54.431 kg Results - Lab Results Most recent lab results ABG pH 7.36 (7.35-7.45) 01/03/23 11:14 ABG pCO2 37 mmHg (35-45) 01/03/23 11:14 ABG pO2 119 mmHg (83-108) H 01/03/23 11:14 ABG HCO3 21 mmol/L (21-25) 01/03/23 11:14 ABG O2 Saturation 99.2 % (94-97) H 01/03/23 11:14 Calcium 9.5 mg/dL (8.4-10.2) 01/03/23 07:40 01/03/23 07:40 01/03/23 07:40 Assessment and Plan Plan: Assessment: 1. Chronic kidney disease stage V secondary to nephrosclerosis and diabetic kidney disease. 2. Acute hypoxic respiratory failure. 3. Coronary artery disease status post cardiac stenting. 4. Volume overload. Improved. 5. Hypertensive urgency. Improved. 6. Chronic kidney disease mineral bone disease maintained on calcitriol and Renvela. 7. Anemia of chronic kidney disease. Rule out iron deficiency. 8. Metabolic acidosis secondary to chronic kidney disease and lactic acidosis. Lactic acid level improved. 9. Acute on chronic systolic CHF with ejection fraction of 35-40%. Plan: Add IV Bumex. Repeat chest x-ray tomorrow. Home antihypertensives resumed. Add amlodipine 5 mg once daily. Add oral bicarb. Check phosphorus level. Check iron studies. Continue to assess daily for need for renal replacement therapy. Patient is awaiting peritoneal dialysis catheter placement outpatient. I discussed with patient potentially starting hemodialysis this admission and then transition to peritoneal dialysis in the near future. Patient states she wants to wait at this time. Thank you for the consultation. I will continue to follow the patient with you during her hospital stay.
[2023-01-03] MEDS ORDERED: amLODIPine 5 MG TAB PO SCH (13:30)
[2023-01-03] MEDS: METOPROLOL SUCCINATE (ER) 50 MG TAB.ER.24H PO SCH (17:15)
[2023-01-03] MEDS: SODIUM BICARBONATE TAB 650 MG TAB PO SCH ×2 (17:15→21:14)
[2023-01-03] MEDS: ASPIRIN 81 MG PO SCH (17:16)
[2023-01-03] MEDS: CLOPIDOGREL 75 MG TAB PO SCH (17:16)
[2023-01-03] MEDS: ATORVASTATIN 40 MG TAB PO SCH (17:16)
[2023-01-03] MEDS: SEVELAMER 800 MG TAB PO SCH (17:16)
[2023-01-03] MEDS: BUMETANIDE 0.25 MG/ML 4 ML VIAL IVP SCH (21:13)
[2023-01-03] MEDS: HEPARIN SODIUM,PORCINE/PF 5,000 UNIT/0.5 ML SYRINGE SQ SCH (21:14)
[2023-01-03 23:02] LABS: % Iron Saturation 6.89 (12.00-45.00)
--- NOTE | 2023-01-04 07:27 | P.CRDCN ---
History of Present Illness Consult date: 01/04/23 Chief complaint: Shortness of breath History of present illness: The patient is a very pleasant 77-year-old female patient with a past medical hi story significant for coronary artery disease and status post a stenting of the LAD in the setting of acute coronary syndrome as well as ischemic cardiomyopathy as well as chronic kidney disease and hypertension and dyslipidemia presented to the hospital complaining of increasing shortness of breath. She was having increasing in the shortness of breath for the last 3 days. No pain in the chest. No lower except his edema beach she gained about 4-5 pounds within the last few days. She stated that she has been compliant with her medications and she is trying to be compliant with low sodium diet. When she presented to the hospital she was found to be hypoxic. She was placed on oxygen. Also she was diagnosed was congestive heart failure. She was started on Bumex. Nephrology service was consulted to see the patient. She was started on Bumex IV with significant urine output since then and she is feeling better. On examination this morning she has stable vital signs beside elevated blood pressure but she does have regular rhythm with a systolic murmur at the right upper sternal pili rder and bilateral rhonchi/wheezing and she has no lower extremity edema noted. Assessment Congestive heart failure exacerbation secondary to heart failure with reduced ejection fraction Severe cardiomyopathy was EF around 35% Severe CAD status post PCI of the LAD Acute on chronic renal failure Hypertension not well-controlled Multiple comorbid conditions Plan Continue the current medical regimen including the current dose of Bumex Nephrology service is following up with the patient as well Continue monitor the kidney function and electrolytes Increase the dose of amlodipine for better blood pressure control Follow-up with the patient Past Medical History Past Medical History: Eye Disorder, GI Bleed, Hyperlipidemia, Hypertension, Myocardial Infarction (OR), Musculoskeletal Disorder, Osteoarthritis (OA), Renal Disease Additional Past Medical History / Comment(s): Chronic anemia, iron deficiency, chronic kidney disease stage III, diverticular disease, hyperlipidemia, osteoarthritis, osteoporosis, hypoglycemia, gout. Last Myocardial Infarction Date:: 11/27/22 History of Any Multi-Drug Resistant Organisms: None Reported, ESBL Date of last positivie culture/infection: 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 Source:: Urine Past Surgical History: Heart Catheterization With Stent, Orthopedic Surgery, Tonsillectomy, Tubal Ligation Additional Past Surgical History / Comment(s): removal ovary, bilateral cararact removal with lens implant; cervical spinal fusion, cervical steroid injection Past Anesthesia/Blood Transfusion Reactions: No Reported Reaction Date of Last Stent Placement:: 11/27/22 Past Psychological History: Anxiety Smoking Status: Former smoker - Past Family History Mother Family Medical History: Osteoarthritis (OA) Sister(s) Family Medical History: Cancer Additional Family Medical History / Comment(s): breast cancer Father Family Medical History: No Reported History Brother(s) Family Medical History: Osteoarthritis (OA) Daughter(s) Family Medical History: No Reported History Son(s) Family Medical History: No Reported History Medications and Allergies Home Medications Medication Instructions Recorded Confirmed Type Famotidine [Pepcid] 20 mg PO DAILY 02/26/20 01/03/23 History FLUoxetine HCL [PROzac] 40 mg PO DAILY 05/15/21 01/03/23 History Aspirin 81 mg PO DAILY 01/03/23 01/03/23 History Atorvastatin [Lipitor] 40 mg PO DAILY 01/03/23 01/03/23 History Cholecalciferol [Vitamin D3 (25 25 mcg PO DAILY 01/03/23 01/03/23 History Mcg = 1000 Iu)] Clopidogrel [Plavix] 75 mg PO DAILY 01/03/23 01/03/23 History Metoprolol Succinate [Toprol XL] 50 mg PO DAILY 01/03/23 01/03/23 History Sevelamer [Renvela] 1,600 mg PO AC-TID 01/03/23 01/03/23 History calcitrioL [Calcitriol] 0.25 mcg PO DAILY 01/03/23 01/03/23 History Allergies Allergy/AdvReac Type Severity Reaction Status Date / Time celecoxib [From Celebrex] Allergy Rash/Hives Verified 01/03/23 09:01 cephalexin [From Keflex] Allergy Unknown Verified 01/03/23 09:01 nitrofurantoin Allergy Swelling Verified 01/03/23 09:01 [From Macrobid] nitrofurantoin Allergy Swelling Verified 01/03/23 09:01 macrocrystalline [From Macrobid] sulfamethoxazole Allergy Swelling Verified 01/03/23 09:01 [From Bactrim] trimethoprim [From Bactrim] Allergy Swelling Verified 01/03/23 09:01 Physical Exam Vitals: Vital Signs Temp Pulse Pulse Resp BP BP Pulse Ox 01/04/23 04:00 79 18 158/85 98 01/04/23 02:00 83 18 01/04/23 00:00 97.0 F L 83 18 152/74 97 01/03/23 20:00 98.2 F 86 18 159/87 99 01/03/23 16:22 100 01/03/23 16:00 83 16 156/84 99 01/03/23 14:01 90 18 150/75 99 01/03/23 13:00 87 20 157/83 100 01/03/23 12:25 100 01/03/23 12:00 82 18 158/97 100 01/03/23 11:09 01/03/23 11:00 82 21 154/91 100 01/03/23 10:42 84 20 150/83 99 01/03/23 10:00 84 21 155/94 99 01/03/23 09:31 01/03/23 09:30 90 22 159/90 99 01/03/23 08:56 91 23 160/94 99 01/03/23 08:09 93 26 H 176/102 98 01/03/23 07:44 97.7 F 99 33 H 180/104 95 01/03/23 07:35 30 H 01/03/23 07:28 FiO2 01/04/23 04:00 01/04/23 02:00 01/04/23 00:00 01/03/23 20:00 01/03/23 16:22 01/03/23 16:00 01/03/23 14:01 01/03/23 13:00 01/03/23 12:25 01/03/23 12:00 01/03/23 11:09 40 01/03/23 11:00 01/03/23 10:42 01/03/23 10:00 01/03/23 09:31 40 01/03/23 09:30 01/03/23 08:56 01/03/23 08:09 01/03/23 07:44 01/03/23 07:35 01/03/23 07:28 50 Intake and Output 01/03/23 01/04/23 01/04/23 22:59 06:59 14:59 Intake Total 0 Output Total 1600 Balance 0 -1600 Intake: Oral 0 Output: Urine 1600 Other: Voiding Method Toilet Toilet # Voids 2 Results 01/03/23 07:40 01/03/23 07:40 Cardiac Enzymes 01/03/23 01/03/23 01/03/23 Range/Units 07:40 07:40 11:56 AST 27 (14-36) U/L Troponin I 0.046 H* 0.076 H* (0.000-0.034) ng/mL 01/03/23 Range/Units 14:56 AST (14-36) U/L Troponin I 0.095 H* (0.000-0.034) ng/mL Coagulation 01/03/23 Range/Units 07:40 PT 9.9 (9.0-12.0) sec APTT 21.5 L (22.0-30.0) sec CBC 01/03/23 Range/Units 07:40 WBC 8.0 (3.8-10.6) k/uL RBC 2.97 L (3.80-5.40) m/uL Hgb 9.2 L (11.4-16.0) gm/dL Hct 29.3 L (34.0-46.0) % Plt Count 493 H (150-450) k/uL Comprehensive Metabolic Panel 01/03/23 Range/Units 07:40 Sodium 136 L (137-145) mmol/L Potassium 5.2 H (3.5-5.1) mmol/L Chloride 107 (98-107) mmol/L Carbon Dioxide 20 L (22-30) mmol/L BUN 37 H (7-17) mg/dL Creatinine 3.65 H (0.52-1.04) mg/dL Glucose 220 H (74-99) mg/dL Calcium 9.5 (8.4-10.2) mg/dL AST 27 (14-36) U/L ALT 16 (4-34) U/L Alkaline Phosphatase 85 (38-126) U/L Total Protein 6.8 (6.3-8.2) g/dL Albumin 3.7 (3.5-5.0) g/dL Current Medications Generic Name Dose Route Start Last Admin Trade Name Freq PRN Reason Stop Dose Admin Amlodipine Besylate 5 mg 01/03/23 13:30 01/03/23 17:15 Amlodipine 5 Mg Tab PO 5 mg DAILY [facility] Administration Aspirin 81 mg 01/03/23 13:30 01/03/23 17:16 Aspirin 81 Mg PO 81 mg DAILY [facility] Administration Atorvastatin Calcium 40 mg 01/03/23 13:30 01/03/23 17:16 Atorvastatin 40 Mg Tab PO 40 mg DAILY [facility] Administration Bumetanide 1 mg 01/03/23 21:00 01/03/23 21:13 Bumetanide 0.25 Mg/Ml 4 Ml Vial IVP 1 mg BID [facility] Administration Calcitriol 0.25 mcg 01/04/23 09:00 Calcitriol 0.25 Mcg Cap PO DAILY [facility] Cholecalciferol 25 mcg 01/04/23 09:00 Cholecalciferol 25 Mcg (1000 Iu) Tablet PO DAILY [facility] Clopidogrel Bisulfate 75 mg 01/03/23 13:30 01/03/23 17:16 Clopidogrel 75 Mg Tab PO 75 mg DAILY [facility] Administration Famotidine 20 mg 01/04/23 09:00 Famotidine 20 Mg Tab PO DAILY [facility] Fluoxetine HCl 40 mg 01/04/23 09:00 Fluoxetine Hcl 20 Mg Cap PO DAILY [facility] Heparin Sodium (Porcine) 5,000 unit 01/03/23 21:00 01/03/23 21:14 Heparin Sodium,Porcine/Pf 5,000 Unit/0.5 Ml Syringe SQ 5,000 unit Q12HR [facility] Administration Hydralazine HCl 10 mg 01/03/23 13:02 Hydralazine Hcl 20 Mg/Ml 1 Ml Vial IVP Q4HR PRN Blood Pressure - High Metoprolol Succinate 50 mg 01/03/23 13:30 01/03/23 17:15 Metoprolol Succinate (Er) 50 Mg Tab.Er.24h PO 50 mg DAILY [facility] Administration Naloxone HCl 0.2 mg 01/03/23 09:38 Naloxone 0.4 Mg/Ml 1 Ml Vial IV Q2M PRN Opioid Reversal Sevelamer Carbonate 1,600 mg 01/03/23 17:30 01/03/23 17:16 Sevelamer 800 Mg Tab PO 1,600 mg AC-TID [facility] Administration Sodium Bicarbonate 650 mg 01/03/23 13:30 01/03/23 21:14 Sodium Bicarbonate Tab 650 Mg Tab PO 650 mg BID [facility] Administration Intake and Output 01/03/23 01/04/23 01/04/23 22:59 06:59 14:59 Intake Total 0 Output Total 1600 Balance 0 -1600 Intake: Oral 0 Output: Urine 1600 Other: Voiding Method Toilet Toilet # Voids 2 01/03/23 07:40 01/03/23 07:40
[2023-01-04] MEDS: SEVELAMER 800 MG TAB PO SCH (07:51)
--- NOTE | 2023-01-04 08:48 | XR ---
EXAMINATION TYPE: XR chest 1V portable DATE OF EXAM: 01/04/2023 COMPARISON: 01/03/2023 INDICATION: Hypoxia TECHNIQUE: Single frontal view of the chest is obtained. FINDINGS: The heart size is normal. The pulmonary vasculature is normal. The lungs are clear. Prior infiltrates have resolved. IMPRESSION: 1. No acute pulmonary process.
[2023-01-04] MEDS: HEPARIN SODIUM,PORCINE/PF 5,000 UNIT/0.5 ML SYRINGE SQ SCH (08:49)
[2023-01-04] MEDS: ATORVASTATIN 40 MG TAB PO SCH (08:49)
[2023-01-04] MEDS: METOPROLOL SUCCINATE (ER) 50 MG TAB.ER.24H PO SCH (08:49)
[2023-01-04] MEDS: SODIUM BICARBONATE TAB 650 MG TAB PO SCH (08:50)
[2023-01-04] MEDS: BUMETANIDE 0.25 MG/ML 4 ML VIAL IVP SCH (08:50)
[2023-01-04] MEDS: CLOPIDOGREL 75 MG TAB PO SCH (08:50)
[2023-01-04] MEDS: ASPIRIN 81 MG PO SCH (08:50)
[2023-01-04 08:54] LABS: Anisocytosis Slight; Basophils % (A) 1 %; Eosinophils # (A) 0.3 k/uL (0-0.7); Eosinophils % (A) 6 %; HCT 26.8 % (34.0-46.0); HGB 8.6 gm/dL (11.4-16.0); Lymphocytes # (A) 0.7 k/uL (1.0-4.8); Lymphocytes % (A) 16 %; MCH 31.7 pg (25.0-35.0); MCHC 32.1 g/dL (31.0-37.0); MCV 98.6 fL (80.0-100.0); Macrocytosis Slight; Mean Platelet Volume 6.8; Monocytes # (A) 0.5 k/uL (0-1.0); Monocytes % (A) 10 %; Neutrophils # (A) 3.1 k/uL (1.3-7.7); Neutrophils % (A) 65 %; Platelet Count 361 k/uL (150-450); RBC 2.72 m/uL (3.80-5.40); RDW 16.2 % (11.5-15.5); WBC 4.7 k/uL (3.8-10.6)
[2023-01-04] MEDS ORDERED: amLODIPine 10 MG TAB PO SCH (09:00)
[2023-01-04] MEDS ORDERED: FAMOTIDINE 20 MG TAB PO SCH (09:00)
[2023-01-04] MEDS ORDERED: FLUoxetine HCL 20 MG CAP PO SCH (09:00)
[2023-01-04] MEDS ORDERED: CHOLECALCIFEROL 25 MCG (1000 IU) TABLET PO SCH (09:00)
[2023-01-04 09:04] LABS: Calcium 9.3 mg/dL (8.4-10.2); Phosphorus 3.3 mg/dL (2.5-4.5); Potassium 4.9 mmol/L (3.5-5.1)
[2023-01-04 09:44] VITALS: BP 148/75; PULSE 63; RESP 20; TEMP 98.1
--- NOTE | 2023-01-04 11:19 | P.DS ---
Providers Date of admission: 01/03/23 09:40 Expected date of discharge: 01/04/23 Attending physician: Adair Mcdonough MD Consults: 01/03/23 09:38 Consult Physician Urgent Consulting Provider: Aubrey Funes Consult Reason/Comments: chf exacerbation Do you want consulting provider notified?: Yes Consult Physician Urgent Consulting Provider: Julee Whatley Consult Reason/Comments: ckd Do you want consulting provider notified?: Yes Primary care physician: [facility] Course: Acute hypoxemic respiratory failure Acute on chronic systolic heart failure, ejection fraction 30-35% Flash pulmonary edema Hypertensive urgency Chronic kidney disease, stage IV Coronary artery disease Hyperlipidemia Elevated troponin 77-year-old woman with a medical history of MT status post stent, hypertension, chronic systolic heart failure, chronic kidney disease stage IV presented to the emergency room with shortness of breath. In the emergency room, patient was afebrile, 180/104, heart rate 99-115, 91-95% on BiPAP with an FiO2 of 50%. CBC demonstrated anemia down to 9.2, thrombocytosis to 493. Chemistry showed hyponatremic to 136, hyperkalemia to 5.2, carbon dioxide of 20, BUN of 37, creatinine 3.65. Lactic acid was 2.5 then trended down to 0.5. Troponin is 0.046 then trended to 0.076. BNP was 52,600. Liver function tests are unremarkable. Coags were unremarkable. Covid, influenza A, B were negative. ABG was done in the emergency room and showed a pH of 7.36, pO2 of 119, pCO2 of 37 on FiO2 40%. Chest x-ray showed infiltrate noted in the right perihilar region as well as right upper lobe. EKG demonstrated sinus tachycardia with left axis deviation, poor R-wave progression consistent with history of anterior infarct, no evidence of active ischemia. Case was discussed with the emergency room and decision was made to admit the patient for acute hypoxemic respiratory failure secondary to heart failure exacerbation as well as acute kidney injury superimposed on chronic kidney disease stage IV. Nephrology and cardiology were consulted and facilitate management. Patient was treated with IV Bumex 1 mg twice a day and improved to room air by the 24 hour meli, and felt back to baseline by the 48 hour meli. Patient's blood pressure improved with diuresis as well as the addition of amlodipine 10 mg daily. Patient was ultimately discharged home with these medication changes with instructions to follow-up with cardiology and nephrology. I spent 38 minutes coordinating this discharge on 01/04 Gen: awake, alert HEENT: normocephalic, atraumatic, good hearing acuity, moist mucous membranes Resp: good air exchange, breathing comfortably with no accessory muscle use CVS: good distal perfusion x 4, GI: soft, NTTP, ND : no SPT, no CVAT, fritz catheter not present MSK: no pitting edema, no clubbing Neuro: non-focal, moving all extremities Psych: cooperative, euthymic mood Patient Condition at Discharge: Good Plan - Discharge Summary New Discharge Prescriptions: New Bumetanide [BUMEX] 1 mg PO DAILY #30 tablet Sodium Bicarbonate Tab 650 mg PO BID #60 tab amLODIPine [Norvasc] 10 mg PO DAILY #30 tab Continue Famotidine [Pepcid] 20 mg PO DAILY FLUoxetine HCL [PROzac] 40 mg PO DAILY Aspirin 81 mg PO DAILY Atorvastatin [Lipitor] 40 mg PO DAILY calcitrioL [Calcitriol] 0.25 mcg PO DAILY Metoprolol Succinate [Toprol XL] 50 mg PO DAILY Sevelamer [Renvela] 1,600 mg PO AC-TID Clopidogrel [Plavix] 75 mg PO DAILY Cholecalciferol [Vitamin D3 (25 Mcg = 1000 Iu)] 25 mcg PO DAILY Discharge Medication List Famotidine [Pepcid] 20 mg PO DAILY 02/26/20 [History] FLUoxetine HCL [PROzac] 40 mg PO DAILY 05/15/21 [History] Aspirin 81 mg PO DAILY 01/03/23 [History] Atorvastatin [Lipitor] 40 mg PO DAILY 01/03/23 [History] Cholecalciferol [Vitamin D3 (25 Mcg = 1000 Iu)] 25 mcg PO DAILY 01/03/23 [History] Clopidogrel [Plavix] 75 mg PO DAILY 01/03/23 [History] Metoprolol Succinate [Toprol XL] 50 mg PO DAILY 01/03/23 [History] Sevelamer [Renvela] 1,600 mg PO AC-TID 01/03/23 [History] calcitrioL [Calcitriol] 0.25 mcg PO DAILY 01/03/23 [History] Bumetanide [BUMEX] 1 mg PO DAILY #30 tablet 03/25/23 [Rx] Sodium Bicarbonate Tab 650 mg PO BID #60 tab 01/04/23 [Rx] amLODIPine [Norvasc] 10 mg PO DAILY #30 tab 01/04/23 [Rx] Follow up Appointment(s)/Referral(s): Evan Baez MD [Primary Care Provider] - 1-2 days (please call office when open to make follow up appointment date and time) Patient Instructions/Handouts: Heart Failure (DC) Discharge Disposition: HOME SELF-CARE
--- NOTE | 2023-01-04 12:36 | P.PN ---
Subjective Patient is seen for follow-up for chronic kidney disease. She was admitted to the hospital with complaints of shortness of breath and fluid overload. Volume status seems to have improved. Patient states she is feeling much better than on admission. This morning patient denies any complaints of chest pains or shortness of breath. She has been voiding well. Currently maintained on IV Bumex. Serum creatinine at 3.8 today. Patient has been at 3.6-3.8 since October 2022 No significant complaints of nausea, vomiting or excessive fatigue. Albumin 3.7 Objective - Vital Signs Vital signs: Vital Signs Temp 98.1 F 01/04/23 08:00 Pulse 63 01/04/23 08:00 Resp 20 01/04/23 08:00 BP 148/75 01/04/23 08:00 Pulse Ox 96 01/04/23 08:00 FiO2 40 01/03/23 11:09 Intake & Output 01/03/23 01/04/23 01/04/23 18:59 06:59 18:59 Intake Total 0 240 Output Total 1600 Balance 0 -1600 240 Weight 54.431 kg Intake: Oral 0 240 Output: Urine 1600 Other: Voiding Method Toilet # Voids 2 - Exam Patient is awake, comfortable, no acute distress Alert oriented 3 Examination of the heart S1 and S2 Examination of the lungs bilateral breath sounds are heard Abdomen is soft nontender Examination of the lower extremities shows no evidence of edema [employer] exam grossly intact - Labs CBC & Chem 7: 01/04/23 08:14 01/04/23 08:14 Labs: Abnormal Lab Results - Last 24 Hours (Table) 01/03/23 01/03/23 01/03/23 Range/Units 11:56 14:56 14:56 RBC (3.80-5.40) m/uL Hgb (11.4-16.0) gm/dL Hct (34.0-46.0) % RDW (11.5-15.5) % Lymphocytes # (1.0-4.8) k/uL Sodium (137-145) mmol/L BUN (7-17) mg/dL Creatinine (0.52-1.04) mg/dL Glucose (74-99) mg/dL Iron 16 L (50-170) ug/dL % Saturation 6.89 L (12.00-45.00) Transferrin 170.0 L (204.0-354.0) mg/dL Ferritin 570.0 H (10.0-291.0) ng/mL Troponin I 0.076 H* 0.095 H* (0.000-0.034) ng/mL Procalcitonin (0.02-0.09) ng/mL 01/04/23 01/04/23 01/04/23 Range/Units 08:14 08:14 08:14 RBC 2.72 L (3.80-5.40) m/uL Hgb 8.6 L (11.4-16.0) gm/dL Hct 26.8 L (34.0-46.0) % RDW 16.2 H (11.5-15.5) % Lymphocytes # 0.7 L (1.0-4.8) k/uL Sodium 134 L (137-145) mmol/L BUN 38 H (7-17) mg/dL Creatinine 3.82 H (0.52-1.04) mg/dL Glucose 132 H (74-99) mg/dL Iron (50-170) ug/dL % Saturation (12.00-45.00) Transferrin (204.0-354.0) mg/dL Ferritin (10.0-291.0) ng/mL Troponin I (0.000-0.034) ng/mL Procalcitonin 0.40 H (0.02-0.09) ng/mL Assessment and Plan Assessment: 1. Chronic kidney disease stage V secondary to nephrosclerosis and diabetic kidney disease. Baseline creatinine appears to be around 3.6-3.8 since October. Previously it was at 2.6 in 2021 2. Acute hypoxic respiratory failure. 3. Coronary artery disease status post cardiac stenting. 4. Volume overload. Improved. 5. Hypertensive urgency. Improved. 6. Chronic kidney disease mineral bone disease maintained on calcitriol and Renvela. 7. Anemia of chronic kidney disease. Iron deficiency noted with saturation at 6.8% 8. Metabolic acidosis secondary to chronic kidney disease and lactic acidosis. Lactic acid level improved. 9. Acute on chronic systolic CHF with ejection fraction of 35-40%. Plan: Continue with IV Bumex for 1 more day IV iron today and tomorrow Patient can be discharged tomorrow on oral diuretics. No urgent indication to start hemodialysis. Close monitoring as outpatient with education for renal replacement therapy.
[2023-01-04] MEDS ORDERED: SODIUM FERRIC GLUCONAT-SUCROSE 125 MG in SODIUM CHLORIDE 0.9% 100 ML IVPB SCH (14:00)
== END 2023-01-04 12:37 | disposition home or self-care (01) | DRG 291 ==
LOC: EC 07:20 → 3SCARD 09:40
PROVIDERS: ADMIT Internal Medicine; ATTEND Internal Medicine
PROC: 5A09357 Assistance with Respiratory Ventilation, Less than 24 Consecutive Hours, Continuous Positive Airway Pressure (ICD-10-PCS; principal; 2023-01-03)
DX: I13.2 Hypertensive heart and chronic kidney disease with heart failure and with stage 5 chronic kidney disease, or end stage renal disease (principal); I50.23 Acute on chronic systolic (congestive) heart failure; J96.01 Acute respiratory failure with hypoxia; E87.1 Hypo-osmolality and hyponatremia; N17.9 Acute kidney failure, unspecified; N18.5 Chronic kidney disease, stage 5; E87.20 Acidosis, unspecified; I16.0 Hypertensive urgency; F41.9 Anxiety disorder, unspecified; I25.10 Atherosclerotic heart disease of native coronary artery without angina pectoris; I25.2 Old myocardial infarction; I25.5 Ischemic cardiomyopathy; D50.9 Iron deficiency anemia, unspecified; D63.1 Anemia in chronic kidney disease; K57.90 Diverticulosis of intestine, part unspecified, without perforation or abscess without bleeding; D75.839 Thrombocytosis, unspecified; M10.9 Gout, unspecified; M19.90 Unspecified osteoarthritis, unspecified site; E11.22 Type 2 diabetes mellitus with diabetic chronic kidney disease; E78.5 Hyperlipidemia, unspecified; E87.5 Hyperkalemia; M81.0 Age-related osteoporosis without current pathological fracture; E83.9 Disorder of mineral metabolism, unspecified; Z79.02 Long term (current) use of antithrombotics/antiplatelets; Z79.82 Long term (current) use of aspirin; Z79.899 Other long term (current) drug therapy; Z95.5 Presence of coronary angioplasty implant and graft; Z98.1 Arthrodesis status; Z20.822 Contact with and (suspected) exposure to COVID-19; Z88.1 Allergy status to other antibiotic agents; Z82.61 Family history of arthritis
CPT/HCPCS: 36415; 36600; 71045; 80048; 80053; 82728; 82805; 83540; 83550; 83605; 83880; 84100; 84145; 84484; 85025; 85610; 85730; 87040; 87502; 87635; 93005; 94660; 94760

== ENCOUNTER → 2023-01-13 | Outpatient (CLI) | payer MEDICARE, BC ==
[2023-01-14 05:20] LABS: Basophils # (A) 0.05 X 10*3/uL (0.00-0.10); Basophils % (A) 1.1 %; Eosinophils # (A) 0.18 X 10*3/uL (0.04-0.35); Eosinophils % (A) 3.9 %; HCT 27.6 % (37.2-46.3); HGB 8.5 g/dL (12.0-15.0); Immature Grans, Automated 0.2 %; Lymphocytes # (A) 0.73 X 10*3/uL (0.90-5.00); Lymphocytes % (A) 15.9 %; MCH 30.4 pg (27.0-32.0); MCHC 30.8 g/dL (32.0-37.0); MCV 98.6 fL (80.0-97.0); Mean Platelet Volume 9.1 fL (9.5-12.2); Monocytes # (A) 0.47 X 10*3/uL (0.20-1.00); Monocytes % (A) 10.2 %; NRBC Per 100 WBC 0 /100 WBCS (0.0-0.0); Neutrophils # (A) 3.16 X 10*3/uL (1.80-7.70); Neutrophils % (A) 68.7 %; Platelet Count 383 X 10*3/uL (140-440); RDW 15.9 % (11.5-14.5)
[2023-01-14 06:04] LABS: % Iron Saturation 29.94 (12.00-45.00); African American GFR (CKD) 9.3 (60.0-200.0); Albumin 3.9 g/dL (3.8-4.9); Albumin/Globulin Ratio 1.3 (1.60-3.17); Anion Gap 16.1 mmol/L (10.00-18.00); BUN/Creat Ratio 14.35 Ratio (12.00-20.00); Blood Urea Nitrogen 68.9 mg/dL (9.0-27.0); Calcium 9.1 mg/dL (8.7-10.3); Carbon Dioxide 23.9 mmol/L (20.0-27.5); Magnesium 2.2 mg/dL (1.5-2.4); Phosphorus 4.9 mg/dL (2.4-5.1); Potassium 5.2 mmol/L (3.5-5.5); Total Bilirubin 0.3 mg/dL (0.30-1.20); Total Protein 6.9 g/dL (6.2-8.2); Uric Acid 8.7 mg/dL (2.9-7.7)
[2023-01-14 06:31] LABS: Urine Creatinine 53.3 mg/dL (28.0-217.0)
[2023-01-14 06:38] LABS: Appearance,Urine Cloudy (Clear); Bilirubin,Urine Negative (Negative); Blood,Urine Trace (Negative); Color,Urine Yellow (Yellow); Ketones,Urine Negative (Negative); Nitrite,Urine Negative (Negative); PH, Urine 6.5 (5.0-8.0); Specific Gravity,Urine 1.011 (1.001-1.030); Urobilinogen,Urine 0.2 (0.2,1.0)
[2023-01-14 06:45] LABS: Bacteria,Urine 3+ /HPF (None Seen)
== END | disposition home or self-care (01) ==
LOC: LABWHC1 14:10
PROVIDERS: ATTEND Internal Medicine
DX: N25.81 Secondary hyperparathyroidism of renal origin (principal); N18.5 Chronic kidney disease, stage 5; D63.1 Anemia in chronic kidney disease; N39.0 Urinary tract infection, site not specified; E55.9 Vitamin D deficiency, unspecified; M10.9 Gout, unspecified; R80.9 Proteinuria, unspecified
CPT/HCPCS: 36415; 80053; 81001; 82043; 82306; 82570; 82728; 83540; 83550; 83735; 83970; 84100; 84550; 85025

== ENCOUNTER → 2023-02-10 | Outpatient (CLI) | payer MEDICARE, BC ==
[2023-02-10 22:33] LABS: African American GFR (CKD) 12.6 (60.0-200.0); Anion Gap 12.7 mmol/L (10.00-18.00); BUN/Creat Ratio 16.2 Ratio (12.00-20.00); Blood Urea Nitrogen 60.6 mg/dL (9.0-27.0); Carbon Dioxide 28.8 mmol/L (20.0-27.5); Non-African American GFR(CKD) 10.9 (60.0-200.0); Potassium 4.1 mmol/L (3.5-5.5)
[2023-02-10 22:46] LABS: Hepatitis A Antibody IgM Nonreactive (Nonreactive); Hepatitis B Core IgM Nonreactive (Nonreactive); Hepatitis B Surface Antigen Nonreactive (Nonreactive); Hepatitis C IgG Antibody Nonreactive (Nonreactive)
[2023-02-11 00:04] LABS: Hepatitis B Surface Antibody Reactive (Nonreactive)
== END | disposition home or self-care (01) ==
LOC: LABWHC1 13:29
PROVIDERS: ATTEND Internal Medicine
DX: E87.5 Hyperkalemia (principal); N18.5 Chronic kidney disease, stage 5
CPT/HCPCS: 36415; 80048; 80074; 86706

== ENCOUNTER 2023-02-11 10:52 | Day surgery (SDC) | payer MEDICARE, BC ==
[2023-02-07 09:31] VITALS: BMI 17.9
[~2023-02-11 10:52] MED LIST changes: +ACETAMINOPHEN TAB 500 MG TAB PO PRN; +HEPARIN SODIUM,PORCINE/PF 5,000 UNIT/0.5 ML SYRINGE SQ PRN; +HYDROmorphone 0.5 MG/0.5 ML SYRINGE IVP PRN; -LIDOCAINE 1% (10MG/ML) FOR IV START INTRADERMA PRN; +ONDANSETRON 4 MG/2 ML VIAL IVP ONE; +fentaNYL (PF) 50 MCG/ML 2 ML AMP IV PRN
[2023-02-11 11:35] VITALS: RESP 16
[2023-02-11] MEDS ORDERED: SODIUM CHLORIDE 0.9% 1,000 ML IV ONE (11:37)
[2023-02-11] MEDS ORDERED: ONDANSETRON 4 MG/2 ML VIAL ONE (11:39)
[2023-02-11] MEDS ORDERED: DEXAMETHASONE SOD PHOSPHATE 4 MG/ML 1 ML VIAL IVP ONE (11:59)
--- NOTE | 2023-02-11 12:13 | P.GSHP ---
History of Present Illness H&P Date: 02/11/23 Chief Complaint: Renal failure 77-year-old female here today for elective dialysis catheter placement. Patient with chronic renal failure. Is on Plavix for recent cardiac stent placement. She was scheduled last week for catheter placement but potassium was elevated. Repeat potassium yesterday at 4.1. Past Medical History Past Medical History: Eye Disorder, GI Bleed, Hyperlipidemia, Hypertension, Myocardial Infarction (AL), Musculoskeletal Disorder, Osteoarthritis (OA), Renal Disease Additional Past Medical History / Comment(s): Chronic anemia-iron deficiency, chronic kidney disease stage III, diverticular disease, osteoporosis. Last Myocardial Infarction Date:: 11/27/22 History of Any Multi-Drug Resistant Organisms: None Reported, ESBL Date of last positivie culture/infection: 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 Source:: Urine Past Surgical History: Heart Catheterization With Stent, Orthopedic Surgery, Tonsillectomy, Tubal Ligation Additional Past Surgical History / Comment(s): removal ovary, bilateral cataract removal with lens implant, cervical spinal fusion, cervical steroid injection Past Anesthesia/Blood Transfusion Reactions: No Reported Reaction Date of Last Stent Placement:: 11/27/22 Past Psychological History: Anxiety Smoking Status: Former smoker Past Alcohol Use History: Occasional Additional Past Alcohol Use History / Comment(s): does drink vodka, states having 3-4 drinks on the weekend and 1-2 drinks during the week. Past Drug Use History: None Reported - Past Family History Mother Family Medical History: Osteoarthritis (OA) Sister(s) Family Medical History: Cancer Additional Family Medical History / Comment(s): breast cancer Father Family Medical History: No Reported History Brother(s) Family Medical History: Osteoarthritis (OA) Daughter(s) Family Medical History: No Reported History Son(s) Family Medical History: No Reported History Medications and Allergies Home Medications Medication Instructions Recorded Confirmed Type Famotidine [Pepcid] 20 mg PO DAILY 02/26/20 02/07/23 History FLUoxetine HCL [PROzac] 40 mg PO DAILY 05/15/21 02/07/23 History Aspirin 81 mg PO DAILY 01/03/23 02/07/23 History Atorvastatin [Lipitor] 40 mg PO DAILY 01/03/23 02/07/23 History Cholecalciferol [Vitamin D3 (25 25 mcg PO DAILY 01/03/23 02/07/23 History Mcg = 1000 Iu)] Clopidogrel [Plavix] 75 mg PO DAILY 01/03/23 02/07/23 History Metoprolol Succinate [Toprol XL] 50 mg PO DAILY 01/03/23 02/07/23 History Sevelamer [Renvela] 1,600 mg PO AC-BID 01/03/23 02/07/23 History calcitrioL [Calcitriol] 0.25 mcg PO DAILY 01/03/23 02/07/23 History Sodium Bicarbonate Tab 650 mg PO BID #60 tab 01/04/23 02/07/23 Rx amLODIPine [Norvasc] 10 mg PO DAILY #30 tab 01/04/23 02/07/23 Rx Bumetanide [BUMEX] 1 tab PO DAILY 01/10/23 02/07/23 History Sodium Zirconium Cyclosilicate 10 gm PO DAILY 02/07/23 02/07/23 History [Lokelma] Allergies Allergy/AdvReac Type Severity Reaction Status Date / Time celecoxib [From Celebrex] Allergy Rash/Hives Verified 02/11/23 11:21 cephalexin [From Keflex] Allergy Unknown Verified 02/11/23 11:21 nitrofurantoin Allergy Swelling Verified 02/11/23 11:21 [From Macrobid] nitrofurantoin Allergy Swelling Verified 02/11/23 11:21 macrocrystalline [From Macrobid] sulfamethoxazole Allergy Swelling Verified 02/11/23 11:21 [From Bactrim] trimethoprim [From Bactrim] Allergy Swelling Verified 02/11/23 11:21 Surgical - Exam Vital Signs Temp Pulse Resp BP Pulse Ox 97.3 F L 70 16 167/74 100 02/11/23 11:32 02/11/23 11:32 02/11/23 11:32 02/11/23 11:32 02/11/23 11:32 Physical exam: General: Well-developed, well-nourished HEENT: Normocephalic, sclerae nonicteric Abdomen: Nontender, nondistended Extremities: No edema Neuro: Alert and oriented Assessment and Plan (1) Renal failure Narrative/Plan: Will proceed with peritoneal dialysis catheter placement at this time. Risks of bleeding, infection, poor function, hernia, fluid leak, bladder and bowel injury reviewed. She understands and wishes to proceed. Current Visit: No Status: Acute Code(s): N19 - UNSPECIFIED KIDNEY FAILURE SNOMED Code(s): 37383292
[2023-02-11] MEDS ORDERED: PROPOFOL 10 MG/ML 20 ML VIAL IV ONE (12:26)
[2023-02-11] MEDS ORDERED: MIDAZOLAM 2 MG/2 ML VIAL ONE (12:26)
[2023-02-11] MEDS ORDERED: fentaNYL (PF) 50 MCG/ML 2 ML AMP ONE (12:26)
[2023-02-11] MEDS ORDERED: LIDOCAINE 2% INJ 20 MG/ML (2 ML VIAL) ONE (12:26)
[2023-02-11] MEDS ORDERED: DESMOPRESSIN ACETATE 14 MCG in SODIUM CHLORIDE 0.9% 50 ML IVPB ONE (12:30)
[2023-02-11] MEDS ORDERED: DESMOPRESSIN ACETATE 13 MCG in SODIUM CHLORIDE 0.9% 50 ML IVPB ONE (12:30)
[2023-02-11] MEDS ORDERED: MINERAL OIL 1 APPLIC/ML OIL TOPICAL ONE (13:01)
[2023-02-11] MEDS ORDERED: BUPIVACAIN-EPI 0.25%-1:200,000 30 ML VIAL SQ ONE ×2 (13:01)
[2023-02-11] MEDS ORDERED: NALOXONE 0.4 MG/ML 1 ML VIAL IV PRN (13:26)
[2023-02-11] MEDS ORDERED: traMADol 50 MG TAB PO PRN (13:26)
[2023-02-11 13:30] VITALS: TEMP 97.6
--- NOTE | 2023-02-11 13:30 | P.OP ---
Date of Procedure: 02/11/23 Procedure(s) Performed: PREOPERATIVE DIAGNOSIS: Renal failure POSTOPERATIVE DIAGNOSIS: Same PROCEDURE: Peritoneal dialysis catheter insertion SURGEON: Peter EBL: Minimal ANESTHESIA: Sedation plus local COMPLICATIONS: None OPERATIVE PROCEDURE: The patient was placed in the operative table in the supine position. The abdomen was prepped and draped in usual sterile fashion. A small vertical incision was made in the left periumbilical location. Dissection down through the subcutaneous tissues took place using electrocautery. The anterior rectus was divided vertically using the scalpel. The rectus was bluntly. The posterior rectus was visualized. An 0 Vicryl pursestring was placed. A small opening in the posterior rectus fascia and peritoneum took place using a Metzenbaum scissors. There were no adhesions to the suture that was placed. The pigtail catheter was advanced into the pelvis over a stylette. No resistance was met. The inner cuff was secured to the fascia using the 0 Vicryl pursestring that was placed. The catheter was tunneled to an exit site in the left lateral lower quadrant. The catheter was connected to the 1 L bag of saline and approximated 800 mL of saline was easily introduced into the peritoneal cavity. The fluid was then allowed to evacuate. The majority of the fluid was returned. The anterior rectus fascia was then reapproximated using a running 0 Vicryl stitch. The subcutaneous tissues reprepped using 3-0 Vicryl sutures and the skin using 4-0 Monocryl sutures. The outpatient dialysis adapter was applied to the end of the catheter. Sterile dressings were then applied after skin glue was placed over the incision. DISPOSITION: Stable to recovery room
[2023-02-11 13:59] VITALS: PULSE 69
[2023-02-11 14:19] VITALS: BP 132/64
== END 2023-02-11 15:00 | disposition home or self-care (01) ==
LOC: OR 10:52
PROVIDERS: ATTEND Surgery
DX: N19 Unspecified kidney failure (principal); I10 Essential (primary) hypertension; E78.5 Hyperlipidemia, unspecified; I25.2 Old myocardial infarction; F41.8 Other specified anxiety disorders; F10.90 Alcohol use, unspecified, uncomplicated; M19.90 Unspecified osteoarthritis, unspecified site; Z95.5 Presence of coronary angioplasty implant and graft; Z88.8 Allergy status to other drugs, medicaments and biological substances; Z98.890 Other specified postprocedural states; Z98.51 Tubal ligation status; Z90.89 Acquired absence of other organs; Z87.891 Personal history of nicotine dependence; Z82.61 Family history of arthritis; Z80.3 Family history of malignant neoplasm of breast; Z79.82 Long term (current) use of aspirin; Z79.899 Other long term (current) drug therapy; Z88.2 Allergy status to sulfonamides; Z88.6 Allergy status to analgesic agent; Z88.1 Allergy status to other antibiotic agents
CPT/HCPCS: 49421; C1752; J2250; J1100; J2405; J0690; J3010; J2704; J1644; J2001

== ENCOUNTER 2023-02-13 14:02 | Observation (INO) | payer MEDICARE, BC ==
[2023-02-13 15:52] LABS: Anisocytosis Slight; Basophils % (A) 0 %; Eosinophils # (A) 0.2 k/uL (0-0.7); Eosinophils % (A) 3 %; HCT 21.1 % (34.0-46.0); Lymphocytes # (A) 0.9 k/uL (1.0-4.8); Lymphocytes % (A) 10 %; MCHC 32.8 g/dL (31.0-37.0); MCV 97.6 fL (80.0-100.0); Macrocytosis Slight; Mean Platelet Volume 6.9; Monocytes # (A) 0.8 k/uL (0-1.0); Monocytes % (A) 10 %; Neutrophils # (A) 6.3 k/uL (1.3-7.7); Neutrophils % (A) 74 %; Platelet Count 303 k/uL (150-450); RBC 2.16 m/uL (3.80-5.40); RDW 17.4 % (11.5-15.5); WBC 8.5 k/uL (3.8-10.6)
[2023-02-13 15:57] LABS: Albumin 3.8 g/dL (3.5-5.0); Calcium 9.2 mg/dL (8.4-10.2); Total Bilirubin 0.8 mg/dL (0.2-1.3); Total Protein 6.7 g/dL (6.3-8.2)
[2023-02-13 15:58] LABS: HGB 6.9 gm/dL (11.4-16.0)
--- NOTE | 2023-02-13 15:58 | XR ---
EXAMINATION TYPE: XR KUB DATE OF EXAM: 02/13/2023 3:53 PM INDICATION: Patient age:Female; 77 years old; Reason for study: pain; COMPARISON: 09/21/2012 TECHNIQUE: One radiographic view of the abdomen was obtained. FINDINGS: Moderate to large stool burden throughout the colon. The bowel gas pattern is nonspecific w ithout dilated loops of small or large bowel. There is no evidence for organomegaly or pneumoperitone um. The osseous structures are intact. No abnormal calcifications are present. Fecal material and g as are demonstrated throughout the colon and rectum. Multilevel disc degeneration changes throughout the spine. IMPRESSION: Moderate to large stool burden throughout the colon. , Nonspecific bowel gas pattern without radiogra phic evidence for acute process.
[2023-02-13 15:59] LABS: INR 0.9 (<1.2); Partial Thromboplastin Time 24.6 sec (22.0-30.0)
--- NOTE | 2023-02-13 16:42 | CT ---
EXAMINATION TYPE: CT abdomen pelvis wo con CT DLP: 327.5 mGycm, Automated exposure control for dose reduction was used. DATE OF EXAM: 02/13/2023 4:32 PM COMPARISON: CT abdomen pelvis most recent from 03/26/2017 CLINICAL INDICATION:Female, 77 years old with history of ab pain; abdominal pain, constipation, abnor mal labs TECHNIQUE: Axial CT of the abdomen and pelvis. Sagittal and coronal reformats were created on a [employer] workstation. Contrast used: None Oral contrast used: without Oral Contrast FINDINGS: LOWER CHEST: There is moderate to severe coronary artery calcifications. ABDOMEN LIVER: Unremarkable GALLBLADDER AND BILE DUCTS: The gallbladder is not definitively visualized may be nondistended versus surgically absent. PANCREAS: Unremarkable. SPLEEN: Unremarkable. ADRENAL GLANDS: Unremarkable. KIDNEYS AND URETERS: No evidence of hydronephrosis or renal calculus. Left renal cysts. Right renal c ysts some with layering high density suggesting hemorrhagic cysts. Additional high density cyst measu ring 5 mm in the right PELVIS BLADDER: Unremarkable REPRODUCTIVE: Unremarkable. ABDOMEN & PELVIS STOMACH AND BOWEL: No evidence of bowel obstruction. There is a large stool burden throughout the col on. Scattered colonic diverticula. PERITONEUM/RETROPERITONEUM: No evidence of pneumoperitoneum or free fluid. VASCULATURE: No evidence of aortic aneurysm. MUSCULOSKELETAL: No acute osseous abnormalities LYMPH NODES: No gross evidence for lymphadenopathy. SOFT TISSUE/ABDOMINAL WALL: Left lower quadrant tubing with large hematoma in the rectus sheath measu ring up to 17.8 cm x 3.0 cm x 3.4 cm. This extends from the pubic symphysis up to the insertion of th e tubing. Noncontrast technique limits evaluation for active extravasation. IMPRESSION: 1. Left lower quadrant rectus sheath hematoma measuring up to 17.8 cm x 3.0 cm x 3.4 cm. This extend s from the pubic symphysis up to the insertion of the tubing. Correlate with CBC. Given noncontrast t echnique evaluation for active extravasation is limited. 2. Large stool burden throughout the colon suggestive of constipation. 3. Suspected hemorrhagic/proteinaceous cysts on the right kidney. There is consider follow-up noneme rgent MRI renal mass protocol for complete evaluation of the kidneys cysts. 4. Clonic diverticulosis.
[2023-02-13] MEDS ORDERED: ACETAMINOPHEN TAB 325 MG TAB PO PRN (17:21)
[2023-02-13] MEDS ORDERED: NALOXONE 0.4 MG/ML 1 ML VIAL IV PRN (17:21)
--- NOTE | 2023-02-13 17:26 | ED ---
General Adult HPI - General Chief complaint: Recheck/Abnormal Lab/Rx Stated complaint: LOW HEMOGLOBIN Source: patient, RN notes reviewed, old records reviewed Mode of arrival: ambulatory Limitations: no limitations - History of Present Illness Initial comments: 77 year old female 2 days postop peritoneal dialysis catheter insertion presenting for anemia. Patient had outpatient lab testing and had a hemoglobin of 7. She has had some abdominal pain and has been dealing with constipation. Her last bowel movement was a proximally 7 days ago. No vomiting. No fever. - Related Data Home Medications Medication Instructions Recorded Confirmed Famotidine [Pepcid] 20 mg PO DAILY 02/26/20 02/13/23 FLUoxetine HCL [PROzac] 40 mg PO DAILY 05/15/21 02/13/23 Aspirin 81 mg PO DAILY 01/03/23 02/13/23 Atorvastatin [Lipitor] 40 mg PO DAILY 01/03/23 02/13/23 Cholecalciferol [Vitamin D3 (25 25 mcg PO DAILY 01/03/23 02/13/23 Mcg = 1000 Iu)] Clopidogrel [Plavix] 75 mg PO DAILY 01/03/23 02/13/23 Metoprolol Succinate [Toprol XL] 50 mg PO DAILY 01/03/23 02/13/23 Sevelamer [Renvela] 1,600 mg PO AC-BID 01/03/23 02/13/23 calcitrioL [Calcitriol] 0.25 mcg PO DAILY 01/03/23 02/13/23 Bumetanide [BUMEX] 1 tab PO DAILY 01/10/23 02/13/23 Sodium Zirconium Cyclosilicate 10 gm PO DAILY 02/07/23 02/13/23 [Lokelma] Previous Rx's Medication Instructions Recorded Sodium Bicarbonate Tab 650 mg PO BID #60 tab 01/04/23 amLODIPine [Norvasc] 10 mg PO DAILY #30 tab 01/04/23 traMADol HCl [Ultram] 50 mg PO Q6H PRN #6 tab 02/11/23 Allergies Allergy/AdvReac Type Severity Reaction Status Date / Time celecoxib [From Celebrex] Allergy Rash/Hives Verified 02/13/23 14:29 cephalexin [From Keflex] Allergy Unknown Verified 02/13/23 14:29 nitrofurantoin Allergy Swelling Verified 02/13/23 14:29 [From Macrobid] nitrofurantoin Allergy Swelling Verified 02/13/23 14:29 macrocrystalline [From Macrobid] sulfamethoxazole Allergy Swelling Verified 02/13/23 14:29 [From Bactrim] trimethoprim [From Bactrim] Allergy Swelling Verified 02/13/23 14:29 Review of Systems ROS Statement: Those systems with pertinent positive or pertinent negative responses have been documented in the HPI. ROS Other: All systems not noted in ROS Statement are negative. Past Medical History Past Medical History: Eye Disorder, GI Bleed, Hyperlipidemia, Hypertension, Myocardial Infarction ([place]), Musculoskeletal Disorder, Osteoarthritis (OA), Renal Disease Additional Past Medical History / Comment(s): Chronic anemia-iron deficiency, chronic kidney disease stage III, diverticular disease, osteoporosis. Last Myocardial Infarction Date:: 11/27/22 History of Any Multi-Drug Resistant Organisms: None Reported, ESBL Date of last positivie culture/infection: 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 Source:: Urine Past Surgical History: Heart Catheterization With Stent, Orthopedic Surgery, Tonsillectomy, Tubal Ligation Additional Past Surgical History / Comment(s): removal ovary, bilateral cataract removal with lens implant, cervical spinal fusion, cervical steroid injection Past Anesthesia/Blood Transfusion Reactions: No Reported Reaction Date of Last Stent Placement:: 11/27/22 Past Psychological History: Anxiety Smoking Status: Former smoker - Past Family History Mother Family Medical History: Osteoarthritis (OA) Sister(s) Family Medical History: Cancer Additional Family Medical History / Comment(s): breast cancer Father Family Medical History: No Reported History Brother(s) Family Medical History: Osteoarthritis (OA) Daughter(s) Family Medical History: No Reported History Son(s) Family Medical History: No Reported History General Exam Limitations: no limitations General appearance: alert, in no apparent distress Head exam: Present: atraumatic, normocephalic Eye exam: Present: normal appearance, PERRL ENT exam: Present: normal exam Neck exam: Present: normal inspection. Absent: tenderness, meningismus Respiratory exam: Present: normal lung sounds bilaterally. Absent: respiratory distress, wheezes Cardiovascular Exam: Present: regular rate, normal rhythm GI/Abdominal exam: Present: soft, tenderness (Generalized tenderness). Absent: distended, rigid Extremities exam: Present: normal inspection, normal capillary refill. Absent: pedal edema Neurological exam: Present: alert, oriented X3, CN II-XII intact. Absent: motor sensory deficit Psychiatric exam: Present: normal affect, normal mood Skin exam: Present: warm, dry, intact Course Vital Signs 02/13/23 02/13/23 14:29 17:18 Temperature 98.2 F Pulse Rate 83 82 Respiratory 16 17 Rate Blood Pressure 157/75 129/65 O2 Sat by Pulse 100 95 Oximetry - Reevaluation(s) Reevaluation #1: 02/13/23 17:25 Patient had 2 large bowel movements in the emergency department, prior to enema Reevaluation #2: 02/13/23 17:58 Patient preference is to be admitted to [facility]. They have been paged. Medical Decision Making - Medical Decision Making Was pt. sent in by a medical professional or institution (MIGUEL Jimenez, CLERK TO JUSTICE, urgent care, hospital, or [facility]...) When possible be specific @ -Primary care Did you speak to anyone other than the patient for history (EMS, parent, family, police, friend...)? What history was obtained from this source @ -No Did you review nursing and triage notes (agree or disagree)? Why? @ -I reviewed and agree with nursing and triage notes Were old charts reviewed (outside hosp., previous admission, EMS record, old EKG, old radiological studies, urgent care reports/EKG's, [facility] records)? Report findings @ -No old charts were reviewed Differential Diagnosis (chest pain, altered mental status, abdominal pain women, abdominal pain men, vaginal bleeding, weakness, fever, dyspnea, syncope, headache, dizziness, GI bleed, back pain, seizure, CVA, palpatations, mental health, musculoskeletal)? @ Differential Abdominal Pain Women: Appendicitis, Cholecystitis, diverticulosis, ischemic bowel, pancreatitis, hepat itis, UTI, gastroenteritis, AAA, incarcerated hernia, bowel obstruction, constipation, inflammatory bowel, hepatitis, peptic ulcer disease, splenic infarction, perforated viscus, this is not meant to be an all-inclusive list EKG interpreted by me (3pts min.). @ -As above X-rays interpreted by me (1pt min.). @ Moderate stool burden CT interpreted by me (1pt min.). @CT showing constipation and suspected rectus sheath hematoma measuring 17 x 3 x 3 U/S interpreted by me (1pt. min.). @ -None done What testing was considered but not performed or refused? (CT, X-rays, U/S, labs)? Why? @ -None What meds were considered but not given or refused? Why? @ -None Did you discuss the management of the patient with other professionals (professionals i.e. , PA, CLERK TO JUSTICE, lab, RT, psych nurse, clinical social worker, foam rubber mixer, teacher, rating officer, case fitter)? Give summary @ Case discussed with Dr. Green and Bubba covering for [facility] Was smoking cessation discussed for >3mins.? @ -No Was critical care preformed (if so, how long)? @ -No Were there social determinants of health that impacted care today? How? (Homelessness, low income, unemployed, alcoholism, drug addiction, transportation, low edu. Level, literacy, decrease access to med. care, correction, re hab)? @ -No Was there de-escalation of care discussed even if they declined (Discuss DNR or withdrawal of care, Hospice)? DNR status @ -No What co-morbidities impacted this encounter? (DM, HTN, Smoking, COPD, CAD, Cancer, CVA, ARF, Chemo, Hep., AIDS, mental health diagnosis, sleep apnea, morbid obesity)? @ -None Was patient admitted / discharged? Hospital course, mention meds given and route, prescriptions, significant lab abnormalities, going to OR and other pertinent info. @ 77-year-old female with anemia, repeat hemoglobin is 6.9. She will be transfused one unit. CT does show concern for possible rectus sheath hematoma. Repeat hemoglobin will be ordered. Patient will be placed in observation, admitted to internal medicine with general surgery on consult. Undiagnosed new problem with uncertain prognosis? @ -No Drug Therapy requiring intensive monitoring for toxicity (Heparin, Nitro, Insulin, Cardizem)? @ -No Were any procedures done? @ -No Diagnosis/symptom? @ Anemia, rectus sheath hematoma, constipation Acute, or Chronic, or Acute on Chronic? @ acute Uncomplicated (without systemic symptoms) or Complicated (systemic symptoms)? @ -complicated Side effects of treatment? @ -No Exacerbation, Progression, or Severe Exacerbation? @ -No Poses a threat to life or bodily function? How? (Chest pain, [place], [place], pneumonia, PE, COPD, DKA, ARF, appy, cholecystitis, CVA, Diverticulitis, Homicidal, Suicidal, threat to staff... and all critical care pts) @ Yes, acute blood loss anemia, hemorrhagic shock - Lab Data Result diagrams: 02/13/23 15:18 02/13/23 15:18 Lab Results 02/13/23 02/13/23 02/13/23 Range/Units 15:18 15:18 15:32 WBC 8.5 (3.8-10.6) k/uL RBC 2.16 L (3.80-5.40) m/uL Hgb 6.9 L* (11.4-16.0) gm/dL Hct 21.1 L (34.0-46.0) % MCV 97.6 (80.0-100.0) fL MCH 32.0 (25.0-35.0) pg MCHC 32.8 (31.0-37.0) g/dL RDW 17.4 H (11.5-15.5) % Plt Count 303 (150-450) k/uL MPV 6.9 Neutrophils % 74 % Lymphocytes % 10 % Monocytes % 10 % Eosinophils % 3 % Basophils % 0 % Neutrophils # 6.3 (1.3-7.7) k/uL Lymphocytes # 0.9 L (1.0-4.8) k/uL Monocytes # 0.8 (0-1.0) k/uL Eosinophils # 0.2 (0-0.7) k/uL Basophils # 0.0 (0-0.2) k/uL Anisocytosis Slight Macrocytosis Slight PT 10.0 (9.0-12.0) sec INR 0.9 (<1.2) APTT 24.6 (22.0-30.0) sec Sodium 130 L (137-145) mmol/L Potassium 4.0 (3.5-5.1) mmol/L Chloride 91 L (98-107) mmol/L Carbon Dioxide 30 (22-30) mmol/L Anion Gap 9 mmol/L BUN 66 H (7-17) mg/dL Creatinine 4.02 H (0.52-1.04) mg/dL Est GFR (CKD-EPI)AfAm 12 (>60 ml/min/1.73 sqM) Est GFR (CKD-EPI)NonAf 10 (>60 ml/min/1.73 sqM) Glucose 86 (74-99) mg/dL Calcium 9.2 (8.4-10.2) mg/dL Total Bilirubin 0.8 (0.2-1.3) mg/dL AST 41 H (14-36) U/L ALT 18 (4-34) U/L Alkaline Phosphatase 80 (38-126) U/L Total Protein 6.7 (6.3-8.2) g/dL Albumin 3.8 (3.5-5.0) g/dL Disposition Clinical Impression: Acute blood loss anemia, CKD (chronic kidney disease), Rectus sheath hematoma Disposition: ADMITTED IP TO THIS HOSP Condition: Stable Is patient prescribed a controlled substance at d/c from ED?: No Time of Disposition: 17:29
[2023-02-13] MEDS ORDERED: HYDROmorphone 0.5 MG/0.5 ML SYRINGE IVP PRN (19:15)
[2023-02-13] MEDS ORDERED: MELATONIN 3 MG TABLET PO PRN (19:15)
[2023-02-13] MEDS ORDERED: LACTULOSE 20 GM/30 ML CUP PO PRN (19:15)
[2023-02-13] MEDS ORDERED: bisacodyL 5 MG TABLET.DR PO PRN (19:15)
[2023-02-13] MEDS ORDERED: ONDANSETRON 4 MG/2 ML VIAL IVP PRN (19:15)
[2023-02-13] MEDS ORDERED: traMADol 50 MG TAB PO PRN (19:16)
--- NOTE | 2023-02-13 19:22 | P.HPIM ---
History of Present Illness H&P Date: 02/13/23 Patient is a 77-year-old female with a past medical history of chronic kidney disease the age [address] Medel with recent placement of a peritoneal dialysis catheter on 02/11/23, coronary artery disease status post stenting, hypertension, dyslipidemia, and systolic congestive heart failure who presented to the ER for low hgb when she went for her aranesp shot. She had been going for her Aranesp injection and when they checked her hemoglobin and found it to be 7. In the ER she underwent an extensive evaluation. On arrival her vital signs were within normal limits. Laboratory analysis was remarkable for hemoglobin of 6.9, sodium 1:30, chloride 91, BUN 66, creatinine 4.02 (baseline appears to be near 4). She was complaining of abdominal pain and cons tipation. She underwent a CT abdomen and pelvis which showed a left lower quadrant rectus sheath hematoma measuring 7.8 x 3 x 3.4 cm extending from the pubic up to the insertion of the tubing, large stool burden, and suspected hemorrhagic or proteinaceous cyst right kidney cyst. KUB demonstrated a large fecal burden. In the ER she was given Tylenol. One unit of packed red blood cells were ordered. She had 2 bowel movements while in the emergency department. Arrangements were made for admission. Patient seen and examined at bedside. She complains of abdominal pain and consitipation. She states that she has not had a bowel movement in 9 days. 2 days ago she had a peritoneal dialysis catheter placed to prep for dialysis. She reports that since that time she has had lower abdominal pain with some radiation into her back. She reporst that her pain had being staying the same or increasing slightly since surgery. She has felt fairly uncomfortable. She has felt overall fatigued. She denies any lightheadedness, dizziness, nausea, vomiting. She does report a history of frequent bruising and bleeding. She reports that she had a stent placed last winter when she was in [facility] Dr. Ferreira office has the records. Vital signs reviewed General: nontoxic, no distress, appears at stated age Derm: warm, dry Eyes: EOMI, no lid lag, anicteric sclera, pupils equal round reactive to light ENT: Nose and ears atraumatic, no thrush, no pharyngeal erythema Cardiovascular: S1S2 reg, no murmur, positive posterior tibial pulse bilateral, no edema, capillary refill less than 2 seconds Lungs: clear to auscultation bilateral, no rhonchi, no rales, no wheeze, no accessory muscle use Abdominal: soft, +Tender to palpation RLQ and LLQ, no guarding, no appreciable organomegaly, normal bowel sounds, Dressing wtih soak through- dressing lifted and no active bleeding from suture site or PD cath insertion site. Ext: no gross muscle atrophy, no contractures Neuro: CN II-XII grossly intact, light touch intact all 4 extremities, finger to nose within normal limits, Psych: Alert, oriented, appropriate affect Assessment: Acute blood loss anemia Left lower quadrant rectus sheath hematoma 17.8 x 3 x 3.4 cm Constipation with large stool burden Chronic kidney disease stage 4/5 with preparations being made for peritoneal dialysis Hyponatremia, chronic and near baseline Chronic: CAD- stent last winter HTN HLD Systolic CHF withef 30-35%, currently compensated Imaging: as per HPI Data Review: as per HPI Plan: -Admit the patient to 3S - 1 unit pRBC, monitor closely for signs of fluid overload. - recheck hgb 2 hours after - Consult Dr. Green - PCP Dr. Baez updated - Bowel regiment with dulolax and lactulose as needed, miralax daily. P -On clear liquid diet , advance per surgery - Consult Dr. Medel - will need to obtain record from Dr. Arriaga office as to if this is a drug eluding stent and exact timing of placement. At this time conitnue plavix and ASA - Resume home Norvasc 10 mg daily, sodium bicarb 650 mg twice daily, Renvela 1600 mg with meals, metoprolol 50 mg daily, Pepcid 20 mg daily, Prozac 40 mg daily, Bumex 1 mg daily, and Lipitor 40 mg daily - If has not been already completed could consider outpatient nonemergent MRI renal mass protocol for evaluation of kidney cyst -Patient's family has asked us to see this patient as primary care physician being Dr. Baez no longer Rounds at the hospital. The patient is admitted with an anticipated greater than 2 midnight stay for evaluation of Anemia. DVT prophylaxis: SCDs Discussed with: Patient, ED physician Anticipated discharge date: in 1-[address]: home This dictation was prepared using [employer] voice recognition software. Though every attempt is made to correct errors during during dictation some may still exist. Past Medical History Past Medical History: Heart Failure, Eye Disorder, GI Bleed, Hyperlipidemia, Hypertension, Myocardial Infarction ([place]), Musculoskeletal Disorder, Osteoarthritis (OA), Renal Disease Additional Past Medical History / Comment(s): Chronic anemia-iron deficiency, chronic kidney disease stage III, diverticular disease, osteoporosis. Last Myocardial Infarction Date:: 11/27/22 History of Any Multi-Drug Resistant Organisms: None Reported, ESBL Date of last positivie culture/infection: 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 Source:: Urine Past Surgical History: Heart Catheterization With Stent, Orthopedic Surgery, Tonsillectomy, Tubal Ligation Additional Past Surgical History / Comment(s): removal ovary, bilateral cataract removal with lens implant, cervical spinal fusion, cervical steroid injection Past Anesthesia/Blood Transfusion Reactions: No Reported Reaction Date of Last Stent Placement:: 11/27/22 Past Psychological History: Anxiety Smoking Status: Former smoker - Past Family History Mother Family Medical History: Osteoarthritis (OA) Sister(s) Family Medical History: Cancer Additional Family Medical History / Comment(s): breast cancer Father Family Medical History: No Reported History Brother(s) Family Medical History: Osteoarthritis (OA) Daughter(s) Family Medical History: No Reported History Son(s) Family Medical History: No Reported History Medications and Allergies Home Medications Medication Instructions Recorded Confirmed Type Famotidine [Pepcid] 20 mg PO DAILY 02/26/20 02/13/23 History FLUoxetine HCL [PROzac] 40 mg PO DAILY 05/15/21 02/13/23 History Atorvastatin [Lipitor] 40 mg PO DAILY 01/03/23 02/13/23 History Cholecalciferol [Vitamin D3 (25 25 mcg PO DAILY 01/03/23 02/13/23 History Mcg = 1000 Iu)] Clopidogrel [Plavix] 75 mg PO DAILY 01/03/23 02/13/23 History Metoprolol Succinate [Toprol XL] 50 mg PO DAILY 01/03/23 02/13/23 History Sevelamer [Renvela] 1,600 mg PO TID-W/MEALS 01/03/23 02/13/23 History calcitrioL [Calcitriol] 0.25 mcg PO DAILY 01/03/23 02/13/23 History Sodium Bicarbonate Tab 650 mg PO BID #60 tab 01/04/23 02/13/23 Rx amLODIPine [Norvasc] 10 mg PO DAILY #30 tab 01/04/23 02/13/23 Rx Bumetanide [BUMEX] 1 mg PO DAILY 01/10/23 02/13/23 History traMADol HCl [Ultram] 50 mg PO Q6H PRN #6 tab 02/11/23 02/13/23 Rx Amoxic-Pot Clav 500-125 mg 1 tab PO Q12H 02/13/23 02/13/23 History [Augmentin 500-125 mg] Aspirin EC [Ecotrin Low Dose] 81 mg PO DAILY 02/13/23 02/13/23 History Allergies Allergy/AdvReac Type Severity Reaction Status Date / Time celecoxib [From Celebrex] Allergy Rash/Hives Verified 02/13/23 18:14 cephalexin [From Keflex] Allergy Unknown Verified 02/13/23 18:14 nitrofurantoin Allergy Rash all Verified 02/13/23 18:14 [From Macrobid] over nitrofurantoin Allergy Rash all Verified 02/13/23 18:14 macrocrystalline over [From Macrobid] sulfamethoxazole Allergy Face Verified 02/13/23 18:14 [From Bactrim] swelling trimethoprim [From Bactrim] Allergy Face Verified 02/13/23 18:14 swelling Physical Exam Osteopathic Statement: *. No significant issues noted on an osteopathic structural exam other than those noted in the History and Physical/Consult. Vitals: Vital Signs Temp Pulse Resp BP Pulse Ox 02/13/23 19:09 98.5 F 82 18 123/87 97 02/13/23 17:18 82 17 129/65 95 02/13/23 14:29 98.2 F 83 16 157/75 100 Intake and Output 02/13/23 02/13/23 02/13/23 06:59 14:59 22:59 Intake Total 0 Balance 0 Intake: Blood Product 0 Rc Pheresis As-3 Unit 0 [id number] Other: Weight 47.627 kg Results CBC & Chem 7: 02/13/23 15:18 02/13/23 15:18 Labs: Abnormal Lab Results - Last 24 Hours (Table) 02/13/23 02/13/23 02/13/23 Range/Units 15:18 15:18 15:25 RBC 2.16 L (3.80-5.40) m/uL Hgb 6.9 L* (11.4-16.0) gm/dL Hct 21.1 L (34.0-46.0) % RDW 17.4 H (11.5-15.5) % Lymphocytes # 0.9 L (1.0-4.8) k/uL Sodium 130 L (137-145) mmol/L Chloride 91 L (98-107) mmol/L BUN 66 H (7-17) mg/dL Creatinine 4.02 H (0.52-1.04) mg/dL AST 41 H (14-36) U/L Crossmatch See Detail
[2023-02-13] MEDS: SODIUM BICARBONATE TAB 650 MG TAB PO SCH (21:22)
[2023-02-13] MEDS: AMOXIC-POT CLAV 500-125 MG 1 EACH TAB PO SCH (21:22)
[2023-02-13 22:51] LABS: Anisocytosis Slight; HCT 25.4 % (34.0-46.0); MCH 32.2 pg (25.0-35.0); MCHC 33.4 g/dL (31.0-37.0); MCV 96.3 fL (80.0-100.0); Macrocytosis Slight; Platelet Count 287 k/uL (150-450); RBC 2.64 m/uL (3.80-5.40); WBC 8.1 k/uL (3.8-10.6)
[2023-02-13 22:53] LABS: HGB 8.5 gm/dL (11.4-16.0)
[2023-02-14 04:45] VITALS: RESP 16
[2023-02-14] MEDS ORDERED: SEVELAMER 800 MG TAB PO SCH (07:30)
[2023-02-14 07:43] LABS: Anisocytosis Slight; HGB 8.1 gm/dL (11.4-16.0); MCH 31.7 pg (25.0-35.0); MCV 93.2 fL (80.0-100.0); Macrocytosis Slight; Mean Platelet Volume 7.1; Platelet Count 236 k/uL (150-450); RBC 2.57 m/uL (3.80-5.40); RDW 18.8 % (11.5-15.5); WBC 8.1 k/uL (3.8-10.6)
[2023-02-14] MEDS: SODIUM BICARBONATE TAB 650 MG TAB PO SCH (08:47)
[2023-02-14] MEDS: AMOXIC-POT CLAV 500-125 MG 1 EACH TAB PO SCH (08:47)
[2023-02-14] MEDS ORDERED: CHOLECALCIFEROL 25 MCG (1000 IU) TABLET PO SCH (09:00)
[2023-02-14] MEDS ORDERED: BUMETANIDE 1 MG TAB PO SCH (09:00)
[2023-02-14] MEDS ORDERED: FAMOTIDINE 20 MG TAB PO SCH (09:00)
[2023-02-14] MEDS ORDERED: FLUoxetine HCL 20 MG CAP PO SCH (09:00)
[2023-02-14] MEDS ORDERED: amLODIPine 10 MG TAB PO SCH (09:00)
[2023-02-14] MEDS ORDERED: METOPROLOL SUCCINATE (ER) 50 MG TAB.ER.24H PO SCH (09:00)
[2023-02-14] MEDS ORDERED: ASPIRIN 81 MG PO SCH ×2 (09:00→11:30)
[2023-02-14] MEDS ORDERED: ATORVASTATIN 40 MG TAB PO SCH (09:00)
[2023-02-14] MEDS ORDERED: CLOPIDOGREL 75 MG TAB PO SCH ×2 (09:00→11:30)
--- NOTE | 2023-02-14 11:22 | P.GSCN ---
History of Present Illness Consult date: 02/14/23 History of present illness: CHIEF COMPLAINT: Low hemoglobin HISTORY OF PRESENT ILLNESS: This is a 77-year-old female with a known history of chronic kidney disease with recent placement of peritoneal dialysis catheter on 02/11/[address] Green. She has known anemia due to chronic kidney disease and receives Aranesp injections. She went in to the office for her routine Aranesp injection and had blood work drawn showing a low hemoglobin of 7.0. She is instructed to come to the hospital for further evaluation. Hemoglobin was 6.9 she did receive 1 unit of blood. She has been taking aspirin and Plavix due to a new cardiac stent that was placed in November 2022. She had a computed tomography scan of the abdomen and pelvis that did show a left lower quadrant rectus sheath hematoma measuring up to 17.8 cm x 3.0 cm x 3.4 cm. Also evidence of constipation. Patient does report some mild abdominal discomfort. Denies any vomiting. It had been almost 7 days since her last bowel movement. She was given medications in the ER and did have a large BM. PAST MEDICAL HISTORY: See below PAST SURGICAL HISTORY: See below MEDICATIONS: See below ALLERGIES: See below SOCIAL HISTORY: No illicit drug use. REVIEW OF SYSTEMS: CONSTITUTIONAL: Denies fever or chills. HEENT: Denies blurred vision, vision changes, or eye pain. Denies hemoptysis CARDIOVASCULAR: Denies chest pain or pressure. RESPIRATORY: No shortness of breath. GASTROINTESTINAL: See HPI for pertinent findings HEMATOLOGIC: Denies bleeding disorders. GENITOURINARY: Denies any blood in urine or increased urinary frequency. SKIN: Denies pruitis. Denies rash. PHYSICAL EXAM: VITAL SIGNS: Reviewed GENERAL: Well-developed in no acute distress. ABDOMEN: Soft. Nondistended. Mild tenderness at the site of the dialysis catheter. Some mild bruising noted on the left side of the umbilicus. NEUROLOGIC: Alert and oriented. Cranial nerves II through XII grossly intact. LABORATORY DATA: WBC is 8.1 Hgb 6.9-8.5-8.1 platelets 236 Sodium 1:30 potassium 4.0 creatinine 4.02 IMAGING: Computed tomography scan and pelvis left lower quadrant rectus sheath hematoma measuring up to 17.8 cm x 3.0 cm x 3.4 cm. This extends from the pubic symphysis to the insertion of the tubing. Large stool burden throughout the colon suggestive constipation. Suspect hemorrhagic/proteinaceous cyst on the right kidney. Consider follow-up nonemergent MRI renal mass protocol for complete evaluation of kidney cysts. Colonic diverticulosis. ASSESSMENT: 1. Left lower quadrant rectus sheath hematoma 2. Recent peritoneal dialysis catheter placement 3. Coronary artery disease with cardiac stent placed in November 2022. On aspirin and Plavix at home PLAN: -Okay to continue aspirin and Plavix from surgical standpoint -Continue to monitor hemoglobin -No surgical intervention planned Thank you for this consultation Physician Room Manager note has been reviewed by physician. Signing provider agrees with the documented findings, assessment, and plan of care. I have personally seen and examined the patient, reviewed the GIS TECHNICIAN /PAs history, exam and MDM and agree with the assessment and plan as written. Based on total visit time, I have performed more than 50% of the visit. As above: Patient was brought to the ER yesterday because of complaints of constipation. She said her abdomen felt tight. She felt crampy. She did feel much better after she had enemas and subsequent large volume stools. She still has mild pain near her incision site. CAT scan reviewed. I do think there is some degree of surgical site bleeding in the rectus sheath. This is obviously exacerbated by her Plavix and aspirin use. Despite that I think most of this blood is probably not acute and occurred in the first 12-24 hours postop. Patient would like to go home today. Hemoglobin is stable in the last 2 checks. If the patient does go home today asked her to monitor that area carefully and return if increased swelling, pain, or lightheadedness occur. Follow-up one week. Past Medical History Past Medical History: Heart Failure, Eye Disorder, GI Bleed, Hyperlipidemia, Hypertension, Myocardial Infarction ([place]), Musculoskeletal Disorder, Osteoarthritis (OA), Renal Disease Additional Past Medical History / Comment(s): Chronic anemia-iron deficiency, chronic kidney disease stage V, diverticular disease, osteoporosis; cataracts wi th lens replacement Last Myocardial Infarction Date:: 11/27/22 History of Any Multi-Drug Resistant Organisms: ESBL Year Discovered:: 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 Source:: Urine Past Surgical History: Heart Catheterization With Stent, Orthopedic Surgery, Tonsillectomy, Tubal Ligation Additional Past Surgical History / Comment(s): removal ovary, bilateral cataract removal with lens implant, cervical spinal fusion, cervical steroid injection Past Anesthesia/Blood Transfusion Reactions: No Reported Reaction Date of Last Stent Placement:: 11/27/22 Past Psychological History: Anxiety Additional Psychological History / Comment(s): takes prozac and xanax for anxiety Smoking Status: Former smoker Past Alcohol Use History: Occasional Additional Past Alcohol Use History / Comment(s): does drink vodka, states having 3-4 drinks on the weekend and 1-2 drinks during the week. Past Drug Use History: None Reported - Past Family History Mother Family Medical History: Osteoarthritis (OA) Sister(s) Family Medical History: Cancer Additional Family Medical History / Comment(s): breast cancer Father Family Medical History: No Reported History Brother(s) Family Medical History: Osteoarthritis (OA) Daughter(s) Family Medical History: No Reported History Son(s) Family Medical History: No Reported History Medications and Allergies Home Medications Medication Instructions Recorded Confirmed Type Famotidine [Pepcid] 20 mg PO DAILY 02/26/20 02/13/23 History FLUoxetine HCL [PROzac] 40 mg PO DAILY 05/15/21 02/13/23 History Atorvastatin [Lipitor] 40 mg PO DAILY 01/03/23 02/13/23 History Cholecalciferol [Vitamin D3 (25 25 mcg PO DAILY 01/03/23 02/13/23 History Mcg = 1000 Iu)] Clopidogrel [Plavix] 75 mg PO DAILY 01/03/23 02/13/23 History Metoprolol Succinate [Toprol XL] 50 mg PO DAILY 01/03/23 02/13/23 History Sevelamer [Renvela] 1,600 mg PO TID-W/MEALS 01/03/23 02/13/23 History calcitrioL [Calcitriol] 0.25 mcg PO DAILY 01/03/23 02/13/23 History Sodium Bicarbonate Tab 650 mg PO BID #60 tab 01/04/23 02/13/23 Rx amLODIPine [Norvasc] 10 mg PO DAILY #30 tab 01/04/23 02/13/23 Rx Bumetanide [BUMEX] 1 mg PO DAILY 01/10/23 02/13/23 History traMADol HCl [Ultram] 50 mg PO Q6H PRN #6 tab 02/11/23 02/13/23 Rx Amoxic-Pot Clav 500-125 mg 1 tab PO Q12H 02/13/23 02/13/23 History [Augmentin 500-125 mg] Aspirin EC [Ecotrin Low Dose] 81 mg PO DAILY 02/13/23 02/13/23 History Acetaminophen Tab [Tylenol] 650 mg PO Q6HR PRN tab 02/14/23 Rx Allergies Allergy/AdvReac Type Severity Reaction Status Date / Time celecoxib [From Celebrex] Allergy Rash/Hives Verified 02/13/23 18:14 cephalexin [From Keflex] Allergy Unknown Verified 02/13/23 18:14 nitrofurantoin Allergy Rash all Verified 02/13/23 18:14 [From Macrobid] over nitrofurantoin Allergy Rash all Verified 02/13/23 18:14 macrocrystalline over [From Macrobid] sulfamethoxazole Allergy Face Verified 02/13/23 18:14 [From Bactrim] swelling trimethoprim [From Bactrim] Allergy Face Verified 02/13/23 18:14 swelling Surgical - Exam Vital Signs Temp Pulse Resp BP Pulse Ox 98.2 F 83 16 157/75 100 02/13/23 14:29 02/13/23 14:29 02/13/23 14:29 02/13/23 14:29 02/13/23 14:29 Results - Labs 02/14/23 06:56 02/13/23 15:18 Abnormal Lab Results - Last 24 Hours (Table) 02/13/23 02/13/23 02/13/23 Range/Units 15:18 15:18 15:25 RBC 2.16 L (3.80-5.40) m/uL Hgb 6.9 L* (11.4-16.0) gm/dL Hct 21.1 L (34.0-46.0) % RDW 17.4 H (11.5-15.5) % Lymphocytes # 0.9 L (1.0-4.8) k/uL Sodium 130 L (137-145) mmol/L Chloride 91 L (98-107) mmol/L BUN 66 H (7-17) mg/dL Creatinine 4.02 H (0.52-1.04) mg/dL AST 41 H (14-36) U/L Crossmatch See Detail 02/13/23 02/14/23 Range/Units 22:17 06:56 RBC 2.64 L 2.57 L (3.80-5.40) m/uL Hgb 8.5 L D 8.1 L (11.4-16.0) gm/dL Hct 25.4 L 24.0 L (34.0-46.0) % RDW 18.0 H 18.8 H (11.5-15.5) % Lymphocytes # (1.0-4.8) k/uL Sodium (137-145) mmol/L Chloride (98-107) mmol/L BUN (7-17) mg/dL Creatinine (0.52-1.04) mg/dL AST (14-36) U/L Crossmatch Diabetes panel 02/13/23 Range/Units 15:18 Sodium 130 L (137-145) mmol/L Potassium 4.0 (3.5-5.1) mmol/L Chloride 91 L (98-107) mmol/L Carbon Dioxide 30 (22-30) mmol/L BUN 66 H (7-17) mg/dL Creatinine 4.02 H (0.52-1.04) mg/dL Glucose 86 (74-99) mg/dL Calcium 9.2 (8.4-10.2) mg/dL AST 41 H (14-36) U/L ALT 18 (4-34) U/L Alkaline Phosphatase 80 (38-126) U/L Total Protein 6.7 (6.3-8.2) g/dL Albumin 3.8 (3.5-5.0) g/dL Calcium panel 02/13/23 Range/Units 15:18 Calcium 9.2 (8.4-10.2) mg/dL Albumin 3.8 (3.5-5.0) g/dL Pituitary panel 02/13/23 Range/Units 15:18 Sodium 130 L (137-145) mmol/L Potassium 4.0 (3.5-5.1) mmol/L Chloride 91 L (98-107) mmol/L Carbon Dioxide 30 (22-30) mmol/L BUN 66 H (7-17) mg/dL Creatinine 4.02 H (0.52-1.04) mg/dL Glucose 86 (74-99) mg/dL Calcium 9.2 (8.4-10.2) mg/dL Adrenal panel 02/13/23 Range/Units 15:18 Sodium 130 L (137-145) mmol/L Potassium 4.0 (3.5-5.1) mmol/L Chloride 91 L (98-107) mmol/L Carbon Dioxide 30 (22-30) mmol/L BUN 66 H (7-17) mg/dL Creatinine 4.02 H (0.52-1.04) mg/dL Glucose 86 (74-99) mg/dL Calcium 9.2 (8.4-10.2) mg/dL Total Bilirubin 0.8 (0.2-1.3) mg/dL AST 41 H (14-36) U/L ALT 18 (4-34) U/L Alkaline Phosphatase 80 (38-126) U/L Total Protein 6.7 (6.3-8.2) g/dL Albumin 3.8 (3.5-5.0) g/dL
--- NOTE | 2023-02-14 11:36 | P.NPCON ---
History of Present Illness - Reason for Consult chronic renal failure - History of Present Illness Reason for consultation: Chronic kidney disease History of present illness: Neck slight patient is a 77-year-old female seen in renal consultation for chronic kidney disease. Patient has chronic kidney dise ase stage V and is in the process of being started on peritoneal dialysis. Patient had peritoneal dialysis catheter placed on 02/11/2023. Patient states she hasn't had a bowel movement the last few days and also complains of tenderness in her abdomen. She denies any vomiting or diarrhea. Denies chest pain or shortness of breath. She admits to good urine output. Hemodynamically stable. She is currently on room air. Hemoglobin was noted to be 6.9 and she did receive a unit of blood yesterday. Hemoglobin today is 8.1. Patient was noted to have a rectus sheath hematoma as well as constipation. Patient states she did have 2 bowel movements yesterday and feels better. Denies fever or c hills. No cough. Vital signs are stable. General: No acute distress. HEENT: Head exam is unremarkable. LUNGS: No audible rhonchi or wheezes. HEART: Rate and Rhythm are regular. ABDOMEN: Generalized tenderness to touch. PD catheter noted. EXTREMITITES: No edema. Past Medical History Past Medical History: Heart Failure, Eye Disorder, GI Bleed, Hyperlipidemia, Hypertension, Myocardial Infarction ([place]), Musculoskeletal Disorder, Osteoarthritis (OA), Renal Disease Additional Past Medical History / Comment(s): Chronic anemia-iron deficiency, chronic kidney disease stage V, diverticular disease, osteoporosis; cataracts with lens replacement Last Myocardial Infarction Date:: 11/27/22 History of Any Multi-Drug Resistant Organisms: ESBL Date of last positivie culture/infection: 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 Source:: Urine Past Surgical History: Heart Catheterization With Stent, Orthopedic Surgery, Tonsillectomy, Tubal Ligation Additional Past Surgical History / Comment(s): removal ovary, bilateral cataract removal with lens implant, cervical spinal fusion, cervical steroid injection Past Anesthesia/Blood Transfusion Reactions: No Reported Reaction Date of Last Stent Placement:: 11/27/22 Past Psychological History: Anxiety Additional Psychological History / Comment(s): takes prozac and xanax for anxiety Smoking Status: Former smoker Past Alcohol Use History: Occasional Additional Past Alcohol Use History / Comment(s): does drink vodka, states having 3-4 drinks on the weekend and 1-2 drinks during the week. Past Drug Use History: None Reported - Past Family History Mother Family Medical History: Osteoarthritis (OA) Sister(s) Family Medical History: Cancer Additional Family Medical History / Comment(s): breast cancer Father Family Medical History: No Reported History Brother(s) Family Medical History: Osteoarthritis (OA) Daughter(s) Family Medical History: No Reported History Son(s) Family Medical History: No Reported History Medications and Allergies Home Medications Medication Instructions Recorded Confirmed Type Famotidine [Pepcid] 20 mg PO DAILY 02/26/20 02/13/23 History FLUoxetine HCL [PROzac] 40 mg PO DAILY 05/15/21 02/13/23 History Atorvastatin [Lipitor] 40 mg PO DAILY 01/03/23 02/13/23 History Cholecalciferol [Vitamin D3 (25 25 mcg PO DAILY 01/03/23 02/13/23 History Mcg = 1000 Iu)] Clopidogrel [Plavix] 75 mg PO DAILY 01/03/23 02/13/23 History Metoprolol Succinate [Toprol XL] 50 mg PO DAILY 01/03/23 02/13/23 History Sevelamer [Renvela] 1,600 mg PO TID-W/MEALS 01/03/23 02/13/23 History calcitrioL [Calcitriol] 0.25 mcg PO DAILY 01/03/23 02/13/23 History Sodium Bicarbonate Tab 650 mg PO BID #60 tab 01/04/23 02/13/23 Rx amLODIPine [Norvasc] 10 mg PO DAILY #30 tab 01/04/23 02/13/23 Rx Bumetanide [BUMEX] 1 mg PO DAILY 01/10/23 02/13/23 History traMADol HCl [Ultram] 50 mg PO Q6H PRN #6 tab 02/11/23 02/13/23 Rx Amoxic-Pot Clav 500-125 mg 1 tab PO Q12H 02/13/23 02/13/23 History [Augmentin 500-125 mg] Aspirin EC [Ecotrin Low Dose] 81 mg PO DAILY 02/13/23 02/13/23 History Acetaminophen Tab [Tylenol] 650 mg PO Q6HR PRN tab 02/14/23 Rx Allergies Allergy/AdvReac Type Severity Reaction Status Date / Time celecoxib [From Celebrex] Allergy Rash/Hives Verified 02/13/23 18:14 cephalexin [From Keflex] Allergy Unknown Verified 02/13/23 18:14 nitrofurantoin Allergy Rash all Verified 02/13/23 18:14 [From Macrobid] over nitrofurantoin Allergy Rash all Verified 02/13/23 18:14 macrocrystalline over [From Macrobid] sulfamethoxazole Allergy Face Verified 02/13/23 18:14 [From Bactrim] swelling trimethoprim [From Bactrim] Allergy Face Verified 02/13/23 18:14 swelling Physical Exam Vitals: Vital Signs Temp Pulse Pulse Resp BP BP Pulse Ox 02/14/23 07:16 98.4 F 79 16 144/61 98 02/14/23 02:00 98.8 F 81 16 133/53 97 02/13/23 22:45 98.2 F 99 02/13/23 22:07 98.2 F 82 17 148/83 96 02/13/23 21:38 98.9 F 81 18 154/74 97 02/13/23 21:24 98.7 F 80 17 153/66 98 02/13/23 20:41 82 16 149/76 97 02/13/23 19:40 98.5 F 82 17 140/64 97 02/13/23 19:20 99.1 F 80 17 139/68 98 02/13/23 19:09 98.5 F 82 18 123/87 97 02/13/23 17:18 82 17 129/65 95 02/13/23 14:29 98.2 F 83 16 157/75 100 Intake and Output 02/13/23 02/14/23 02/14/23 22:59 06:59 14:59 Intake Total 308 590 Balance 308 590 Intake: Oral 590 Blood Product 308 Rc Pheresis As-3 Unit 308 [id number] Other: # Voids 1 Results - Lab Results Most recent lab results Calcium 9.2 mg/dL (8.4-10.2) 02/13/23 15:18 02/14/23 06:56 02/13/23 15:18 Assessment and Plan Plan: Assessment: 1. Chronic kidney disease stage V with GFR near baseline. Etiology is nephrosclerosis and cardiorenal syndrome. Patient will be started on PD in the near future. PD catheter was placed 02/11/2023. 2. Rectus sheath hematoma status post blood transfusion this admission. Surgery following. 3. Acute blood loss anemia with component of chronic kidney disease. Status post blood transfusion this admission. Maintained on CESAR outpatient - last dose 02/13/23. 4. Hypertension with chronic kidney disease. 5. Chronic kidney disease mineral bone disease maintained on calcitriol and Renvela. 6. Constipation. Improved with medical management. 7. Coronary disease status post cardiac stenting in November 2022. 8. Chronic systolic CHF with ejection fraction of 30-35%. Plan: Maintain Bumex. Advised patient to maintain low salt diet and fluid restriction of less than 45- 50 ounces per day. Decrease bicarb to once daily. Patient to follow-up at [facility] on Friday to get PD catheter flushed. Lactulose as needed for constipation. Thank you for the consultation. I will continue to follow the patient with you during her hospital stay.
[2023-02-14 12:06] VITALS: BP 155/71; PULSE 86; TEMP 99.3
--- NOTE | 2023-02-14 14:35 | P.DS ---
Providers Date of admission: 02/13/23 17:25 Expected date of discharge: 02/14/23 Attending physician: Binh Gomes MD Consults: 02/13/23 17:21 Consult Physician Routine Consulting Provider: Chago Green Consult Reason/Comments: Rectus sheath hematoma Do you want consulting provider notified?: Yes 02/13/23 19:15 Consult Physician Routine Consulting Provider: Mark Medel Consult Reason/Comments: CKD IV/V Do you want consulting provider notified?: Yes Primary care physician: [facility] Course: Assessment: Acute blood loss anemia Left lower quadrant rectus sheath hematoma 17.8 x 3 x 3.4 cm Constipation with large stool burden Chronic kidney disease stage 4/5 with preparations being made for peritoneal dialysis Hyponatremia, chronic and near baseline Chronic: CAD- stent last winter HTN HLD Systolic CHF withef 30-35%, currently compensated Hospital course: Patient is a 77-year-old female with a past medical history of chronic kidney disease the age [address] Medel with recent placement of a peritoneal dialysis catheter on 02/11/23, coronary artery disease status post stenting, hypertension, dyslipidemia, and systolic congestive heart failure who presented to the ER for low hgb when she went for her aranesp shot. In the ER she underwent an extensive evaluation. On arrival her vital signs were within normal limits. Laboratory analysis was remarkable for hemoglobin of 6.9, sodium 1:30, chloride 91, BUN 66, creatinine 4.02 (baseline appears to be near 4). She was complaining of abdominal pain and constipation. She underwent a CT abdomen and pelvis which showed a left lower quadrant rectus sheath hematoma measuring 7.8 x 3 x 3.4 cm extending from the pubic up to the insertion of the tubing, large stool burden, and suspected hemorrhagic or proteinaceous cyst right kidney cyst. KUB demonstrated a large fecal burden. In the ER she was given Tylenol. One unit of packed red blood cells were ordered. She had 2 bowel movements while in the emergency department. Arrangements were made for admission. Follow-up CBC after transfusion noted appropriate response of hemoglobin from 6.9-8.5. Patient reported feeling back to her normal baseline, did continue to have some pain with movement, post tolerating this with Tylenol when necessary. The case was discussed with cardiology and in light of her recent drug-eluting stent placed approximately 2 months ago, it was not felt to be prudent to discontinue either aspirin or Plavix, and therefore dual antiplatelet therapy was continued, with plans to follow-up her CBC in close proximity in the outpatient setting. This was discussed with general surgery, as well as the patient and her family. She'll follow up as appropriate with primary care physician, cardiology, nephrology. Gen: awake, alert HEENT: normocephalic, atraumatic, good hearing acuity, moist mucous membranes Resp: good air exchange, breathing comfortably with no accessory muscle use CVS: good distal perfusion x 4, GI: soft, NTTP, ND : no SPT, no CVAT, fritz catheter not present MSK: no pitting edema, no clubbing Neuro: non-focal, moving all extremities Psych: cooperative, euthymic mood Patient Condition at Discharge: Good Plan - Discharge Summary New Discharge Prescriptions: New Acetaminophen Tab [Tylenol] 650 mg PO Q6HR PRN tab PRN Reason: Mild Pain Or Fever > 100.5 Continue Famotidine [Pepcid] 20 mg PO DAILY FLUoxetine HCL [PROzac] 40 mg PO DAILY Atorvastatin [Lipitor] 40 mg PO DAILY calcitrioL [Calcitriol] 0.25 mcg PO DAILY Metoprolol Succinate [Toprol XL] 50 mg PO DAILY Sevelamer [Renvela] 1,600 mg PO TID-W/MEALS Sodium Bicarbonate Tab 650 mg PO BID #60 tab traMADol HCl [Ultram] 50 mg PO Q6H PRN #6 tab PRN Reason: Pain Aspirin EC [Ecotrin Low Dose] 81 mg PO DAILY Clopidogrel [Plavix] 75 mg PO DAILY Cholecalciferol [Vitamin D3 (25 Mcg = 1000 Iu)] 25 mcg PO DAILY amLODIPine [Norvasc] 10 mg PO DAILY #30 tab Bumetanide [BUMEX] 1 mg PO DAILY Amoxic-Pot Clav 500-125 mg [Augmentin 500-125 mg] 1 tab PO Q12H Discharge Medication List Famotidine [Pepcid] 20 mg PO DAILY 02/26/20 [History] FLUoxetine HCL [PROzac] 40 mg PO DAILY 05/15/21 [History] Atorvastatin [Lipitor] 40 mg PO DAILY 01/03/23 [History] Cholecalciferol [Vitamin D3 (25 Mcg = 1000 Iu)] 25 mcg PO DAILY 01/03/23 [History] Clopidogrel [Plavix] 75 mg PO DAILY 01/03/23 [History] Metoprolol Succinate [Toprol XL] 50 mg PO DAILY 01/03/23 [History] Sevelamer [Renvela] 1,600 mg PO TID-W/MEALS 01/03/23 [History] calcitrioL [Calcitriol] 0.25 mcg PO DAILY 01/03/23 [History] Sodium Bicarbonate Tab 650 mg PO BID #60 tab 01/04/23 [Rx] amLODIPine [Norvasc] 10 mg PO DAILY #30 tab 01/04/23 [Rx] Bumetanide [BUMEX] 1 mg PO DAILY 01/10/23 [History] traMADol HCl [Ultram] 50 mg PO Q6H PRN #6 tab 02/11/23 [Rx] Amoxic-Pot Clav 500-125 mg [Augmentin 500-125 mg] 1 tab PO Q12H 02/13/23 [History] Aspirin EC [Ecotrin Low Dose] 81 mg PO DAILY 02/13/23 [History] Acetaminophen Tab [Tylenol] 650 mg PO Q6HR PRN tab 02/14/23 [Rx] Follow up Appointment(s)/Referral(s): Chago Green MD [Medical Doctor] - 02/20/23 Evan Baez MD [Primary Care Provider] - 1-2 days Patient Instructions/Handouts: Anemia (DC) Discharge Disposition: HOME SELF-CARE
[2023-02-15] MEDS ORDERED: SODIUM BICARBONATE TAB 650 MG TAB PO SCH (09:00)
== END 2023-02-14 14:04 | disposition home or self-care (01) ==
LOC: EC 14:02 → 4SSUR 17:25 → 5NMEDONC 20:43
PROVIDERS: ADMIT Internal Medicine; ATTEND Internal Medicine
DX: D62 Acute posthemorrhagic anemia (principal); T82.838A Hemorrhage due to vascular prosthetic devices, implants and grafts, initial encounter; K59.00 Constipation, unspecified; E87.1 Hypo-osmolality and hyponatremia; I13.2 Hypertensive heart and chronic kidney disease with heart failure and with stage 5 chronic kidney disease, or end stage renal disease; N18.5 Chronic kidney disease, stage 5; I50.22 Chronic systolic (congestive) heart failure; D63.1 Anemia in chronic kidney disease; K57.90 Diverticulosis of intestine, part unspecified, without perforation or abscess without bleeding; I25.10 Atherosclerotic heart disease of native coronary artery without angina pectoris; M81.0 Age-related osteoporosis without current pathological fracture; D50.9 Iron deficiency anemia, unspecified; E78.5 Hyperlipidemia, unspecified; Y84.1 Kidney dialysis as the cause of abnormal reaction of the patient, or of later complication, without mention of misadventure at the time of the procedure; F41.9 Anxiety disorder, unspecified; Z79.82 Long term (current) use of aspirin; Z79.02 Long term (current) use of antithrombotics/antiplatelets; Z79.899 Other long term (current) drug therapy; Z88.6 Allergy status to analgesic agent; Z88.1 Allergy status to other antibiotic agents; Z88.2 Allergy status to sulfonamides; Z16.12 Extended spectrum beta lactamase (ESBL) resistance; Z95.5 Presence of coronary angioplasty implant and graft; Z87.891 Personal history of nicotine dependence; Z80.3 Family history of malignant neoplasm of breast; Z82.61 Family history of arthritis; I25.2 Old myocardial infarction; M19.90 Unspecified osteoarthritis, unspecified site
CPT/HCPCS: 36430; 99285; 36415; 86900; 86901; 80053; 85025; 85027 ×2; 85610; 85730; 86850; 86920; 74018; 74176; G0378 ×3; P9016

== ENCOUNTER 2023-02-19 18:12 | Observation (INO) | payer MEDICARE, BC ==
[2023-02-19] MEDS ORDERED: SODIUM CHLORIDE 0.9% 1,000 ML IV STA (18:55)
[2023-02-19] MEDS ORDERED: ONDANSETRON 4 MG/2 ML VIAL IVP STA (18:55)
--- NOTE | 2023-02-19 18:55 | ED ---
Abdominal Pain HPI - General Chief Complaint: Abdominal Pain Stated Complaint: Abd Pain Time Seen by Provider: 02/19/23 18:47 Source: patient, family, RN notes reviewed, old records reviewed Mode of arrival: wheelchair Limitations: no limitations - History of Present Illness Initial Comments: This is a 77-year-old male to the emergency department for evaluation. Patient resents today for evaluation regards to severe and sudden onset of severe abdominal pain. Patient did have. No dialysis today at her dialysis center. Patient also has flushing of her perineum. Patient then had severe sudden onset of abdominal pain a few hours later wanted her which is persisting here in the ER, mild nausea with no other significant complaints. Patient does have recent medical history for rectus sheath hematoma secondary to iatrogenic cause being Dialysis catheter. MD Complaint: abdominal pain, other (no) -: hour(s) Location: periumbilical, epigastric, suprapubic Radiation: epigastric, suprapubic Migration to: suprapubic Severity scale (1-10): 7 Quality: fullness Consistency: constant Improves With: nothing Worsens With: nothing Associated Symptoms: nausea Treatments Prior to Arrival: other (0) - Related Data Home Medications Medication Instructions Recorded Confirmed Famotidine [Pepcid] 20 mg PO DAILY 02/26/20 02/19/23 FLUoxetine HCL [PROzac] 40 mg PO DAILY 05/15/21 02/19/23 Atorvastatin [Lipitor] 40 mg PO DAILY 01/03/23 02/19/23 Cholecalciferol [Vitamin D3 (25 25 mcg PO DAILY 01/03/23 02/19/23 Mcg = 1000 Iu)] Clopidogrel [Plavix] 75 mg PO DAILY 01/03/23 02/19/23 Metoprolol Succinate [Toprol XL] 50 mg PO DAILY 01/03/23 02/19/23 Sevelamer [Renvela] 1,600 mg PO TID-W/MEALS 01/03/23 02/19/23 calcitrioL [Calcitriol] 0.25 mcg PO DAILY 01/03/23 02/19/23 Bumetanide [BUMEX] 1 mg PO DAILY 01/10/23 02/19/23 Aspirin EC [Ecotrin Low Dose] 81 mg PO DAILY 02/13/23 02/19/23 Previous Rx's Medication Instructions Recorded Sodium Bicarbonate Tab 650 mg PO BID #60 tab 01/04/23 amLODIPine [Norvasc] 10 mg PO DAILY #30 tab 01/04/23 traMADol HCl [Ultram] 50 mg PO Q6H PRN #6 tab 02/11/23 Acetaminophen Tab [Tylenol] 650 mg PO Q6HR PRN tab 02/14/23 Allergies Allergy/AdvReac Type Severity Reaction Status Date / Time celecoxib [From Celebrex] Allergy Rash/Hives Verified 02/19/23 19:09 cephalexin [From Keflex] Allergy Unknown Verified 02/19/23 19:09 nitrofurantoin Allergy Rash all Verified 02/19/23 19:09 [From Macrobid] over nitrofurantoin Allergy Rash all Verified 02/19/23 19:09 macrocrystalline over [From Macrobid] sulfamethoxazole Allergy Face Verified 02/19/23 19:09 [From Bactrim] swelling trimethoprim [From Bactrim] Allergy Face Verified 02/19/23 19:09 swelling Review of Systems ROS Statement: Those systems with pertinent positive or pertinent negative responses have been documented in the HPI. ROS Other: All systems not noted in ROS Statement are negative. Past Medical History Past Medical History: Heart Failure, Eye Disorder, GI Bleed, Hyperlipidemia, Hypertension, Myocardial Infarction ([place]), Musculoskeletal Disorder, Osteoarthritis (OA), Renal Disease Additional Past Medical History / Comment(s): Chronic anemia-iron deficiency, chronic kidney disease stage V, diverticular disease, osteoporosis; cataracts with lens replacement Last Myocardial Infarction Date:: 11/27/22 History of Any Multi-Drug Resistant Organisms: ESBL Date of last positivie culture/infection: 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 Source:: Urine Past Surgical History: Heart Catheterization With Stent, Orthopedic Surgery, Tonsillectomy, Tubal Ligation Additional Past Surgical History / Comment(s): removal ovary, bilateral cataract removal with lens implant, cervical spinal fusion, cervical steroid injection Past Anesthesia/Blood Transfusion Reactions: No Reported Reaction Date of Last Stent Placement:: 11/27/22 Past Psychological History: Anxiety Smoking Status: Former smoker Past Alcohol Use History: Occasional Past Drug Use History: None Reported - Past Family History Mother Family Medical History: Osteoarthritis (OA) Sister(s) Family Medical History: Cancer Additional Family Medical History / Comment(s): breast cancer Father Family Medical History: No Reported History Brother(s) Family Medical History: Osteoarthritis (OA) Daughter(s) Family Medical History: No Reported History Son(s) Family Medical History: No Reported History General Exam Limitations: no limitations General appearance: alert, in no apparent distress Head exam: Present: atraumatic, normocephalic, normal inspection Eye exam: Present: normal appearance, PERRL, EOMI. Absent: scleral icterus, conjunctival injection, periorbital swelling ENT exam: Present: normal exam, mucous membranes moist Neck exam: Present: normal inspection. Absent: tenderness, meningismus, lymph adenopathy Respiratory exam: Present: normal lung sounds bilaterally. Absent: respiratory distress, wheezes, rales, rhonchi, stridor Cardiovascular Exam: Present: regular rate, normal rhythm, normal heart sounds. Absent: systolic murmur, diastolic murmur, rubs, gallop, clicks GI/Abdominal exam: Present: soft, tenderness, guarding, normal bowel sounds. Absent: distended, rebound, rigid Extremities exam: Present: normal inspection, full ROM, normal capillary refill. Absent: tenderness, pedal edema, joint swelling, calf tenderness Back exam: Present: normal inspection Neurological exam: Present: alert, oriented X3, CN II-XII intact Psychiatric exam: Present: normal affect, normal mood Skin exam: Present: warm, dry, intact, normal color. Absent: rash Course Vital Signs 02/19/23 18:14 Temperature 97.6 F Pulse Rate 91 Respiratory 16 Rate Blood Pressure 172/78 O2 Sat by Pulse 100 Oximetry - Reevaluation(s) Reevaluation #1: 02/19/23 21:32 Records reviewed Reevaluation #2: 02/19/23 21:32 Patient's pain is controlled although she does not fill comfortable with discharge, does get had waves of pain Reevaluation #3: 02/19/23 21:33 Patient informed results and questions have been answered Reevaluation #4: 02/19/23 21:33 Was pt. sent in by a medical professional or institution? @ -no Did you speak to anyone other than the patient for history? @ -no Did you review nursing and triage notes? @ -agree Were old charts reviewed? @ -no Differential Diagnosis? @ -prior EKG interpreted by me (3pts min.)? @ -yes X-rays interpreted by me (1pt min.)? @ -yes CT interpreted by me (1pt min.)? @ -no U/S interpreted by me (1pt. min.)? @ -no What testing was considered but not performed? (CT, X-rays, U/S, labs)? Why? @ -no What meds were considered but not given? Why? @ -no Did you discuss the management of the patient with other professionals? @ -no Did you reconcile home meds? @ -no Was smoking cessation discussed for >3mins.? @ -no Was critical care preformed (if so, how long)? @ -no Were there social determinants of health that impacted care today? How? (Homelessness, low income, unemployed, alcoholism, drug addiction, transportation, low edu. Level, literacy, decrease access to med. care, fpc, rehab)? @ -no Was there de-escalation of care discussed even if they declined? (Discuss DNR or withdrawal of care, Hospice)? @ -no What co-morbidities impacted this encounter? (DM, HTN, Smoking, COPD, CAD, Cancer, CVA, Hep., AIDS, mental health diagnosis, sleep apnea, morbid obesity)? @ -no Was patient admitted / discharged? @ -dc Undiagnosed new problem with uncertain prognosis? @ -no Drug Therapy requiring intensive monitoring for toxicity (Heparin, Nitro, Insulin, Cardizem)? @ -no Were any procedures done? @ -no Diagnosis/symptom? @ - Acute, or Chronic, or Acute on Chronic? @ -acute Uncomplicated (without systemic symptoms) or Complicated (systemic symptoms)? @ -no Side effects of treatment? @ -no Exacerbation, Progression, or Severe Exacerbation] @ - Poses a threat to life or bodily function? @ -no Reevaluation #5: 02/19/23 21:41 Differential Abdominal Pain Women: Appendicitis, Cholecystitis, diverticulosis, ischemic bowel, pancreatitis, hepatitis, UTI, gastroenteritis, AAA, incarcerated hernia, bowel obstruction, constipation, inflammatory bowel, hepatitis, peptic ulcer disease, splenic infarction, perforated viscus, vulvitis, ovarian torsion, PID, kidney stone, placenta abruption, this is not meant to be an all-inclusive list - Consultations Consultation #1: Spoke with sound who agrees to admit this patient Medical Decision Making - Medical Decision Making 77 female to the emergency department for evaluation of abdominal pain. Patient is severe sudden onset of abdominal pain, patient has mild pain control currently still does not feel well, testing is normal here in the ER patient be admitted for symptom control. - Lab Data Result diagrams: 02/19/23 19:13 02/19/23 19:13 Lab Results 02/19/23 02/19/23 02/19/23 Range/Units 19:13 19:13 19:13 WBC 11.3 H (3.8-10.6) k/uL RBC 2.98 L (3.80-5.40) m/uL Hgb 9.2 L (11.4-16.0) gm/dL Hct 29.0 L (34.0-46.0) % MCV 97.4 (80.0-100.0) fL MCH 30.8 (25.0-35.0) pg MCHC 31.6 (31.0-37.0) g/dL RDW 16.3 H (11.5-15.5) % Plt Count 500 H (150-450) k/uL MPV 6.9 Neutrophils % 84 % Lymphocytes % 6 % Monocytes % 5 % Eosinophils % 3 % Basophils % 0 % Neutrophils # 9.5 H (1.3-7.7) k/uL Lymphocytes # 0.7 L (1.0-4.8) k/uL Monocytes # 0.6 (0-1.0) k/uL Eosinophils # 0.3 (0-0.7) k/uL Basophils # 0.0 (0-0.2) k/uL Anisocytosis Slight Macrocytosis Slight PT 9.6 (9.0-12.0) sec INR 0.9 (<1.2) APTT 23.5 (22.0-30.0) sec Sodium 129 L (137-145) mmol/L Potassium 4.4 (3.5-5.1) mmol/L Chloride 95 L (98-107) mmol/L Carbon Dioxide 21 L (22-30) mmol/L Anion Gap 13 mmol/L BUN 61 H (7-17) mg/dL Creatinine 3.43 H (0.52-1.04) mg/dL Est GFR (CKD-EPI)AfAm 14 (>60 ml/min/1.73 sqM) Est GFR (CKD-EPI)NonAf 12 (>60 ml/min/1.73 sqM) Glucose 105 H (74-99) mg/dL Plasma Lactic Acid Omar (0.7-2.0) mmol/L Calcium 10.1 (8.4-10.2) mg/dL Total Bilirubin 1.2 (0.2-1.3) mg/dL AST 26 (14-36) U/L ALT 17 (4-34) U/L Alkaline Phosphatase 93 (38-126) U/L Total Protein 7.0 (6.3-8.2) g/dL Albumin 4.0 (3.5-5.0) g/dL Amylase 161 H (30-110) U/L Lipase 539 H (23-300) U/L Blood Type Blood Type Recheck Bld Type Recheck Status Antibody Screen Spec Expiration Date 02/19/23 02/19/23 Range/Units 19:13 19:28 WBC (3.8-10.6) k/uL RBC (3.80-5.40) m/uL Hgb (11.4-16.0) gm/dL Hct (34.0-46.0) % MCV (80.0-100.0) fL MCH (25.0-35.0) pg MCHC (31.0-37.0) g/dL RDW (11.5-15.5) % Plt Count (150-450) k/uL MPV Neutrophils % % Lymphocytes % % Monocytes % % Eosinophils % % Basophils % % Neutrophils # (1.3-7.7) k/uL Lymphocytes # (1.0-4.8) k/uL Monocytes # (0-1.0) k/uL Eosinophils # (0-0.7) k/uL Basophils # (0-0.2) k/uL Anisocytosis Macrocytosis PT (9.0-12.0) sec INR (<1.2) APTT (22.0-30.0) sec Sodium (137-145) mmol/L Potassium (3.5-5.1) mmol/L Chloride (98-107) mmol/L Carbon Dioxide (22-30) mmol/L Anion Gap mmol/L BUN (7-17) mg/dL Creatinine (0.52-1.04) mg/dL Est GFR (CKD-EPI)AfAm (>60 ml/min/1.73 sqM) Est GFR (CKD-EPI)NonAf (>60 ml/min/1.73 sqM) Glucose (74-99) mg/dL Plasma Lactic Acid Omar 1.6 (0.7-2.0) mmol/L Calcium (8.4-10.2) mg/dL Total Bilirubin (0.2-1.3) mg/dL AST (14-36) U/L ALT (4-34) U/L Alkaline Phosphatase (38-126) U/L Total Protein (6.3-8.2) g/dL Albumin (3.5-5.0) g/dL Amylase (30-110) U/L Lipase (23-300) U/L Blood Type O Positive Blood Type Recheck O Pos Bld Type Recheck Status No Antibody Screen NEGATIVE Spec Expiration Date 02/22/2023 3167 - Radiology Data Radiology results: report reviewed (CT abdominal and pelvis is negative for significant acute disease), image reviewed Disposition Clinical Impression: Abdominal pain, Pancreatitis, Anemia, Weakness, Leukocytosis Disposition: ADMITTED IP TO THIS [facility] Condition: Undetermined Is patient prescribed a controlled substance at d/c from ED?: No Referrals: Evan Baez MD [Primary Care Provider] - 1-2 days Time of Disposition: 21:30
[2023-02-19] MEDS ORDERED: HYDROmorphone 1 MG/ML 1 ML SYRINGE IVP STA (18:56)
[2023-02-19 19:33] LABS: Anisocytosis Slight; Basophils % (A) 0 %; Eosinophils # (A) 0.3 k/uL (0-0.7); Eosinophils % (A) 3 %; HGB 9.2 gm/dL (11.4-16.0); Lymphocytes # (A) 0.7 k/uL (1.0-4.8); Lymphocytes % (A) 6 %; MCH 30.8 pg (25.0-35.0); MCHC 31.6 g/dL (31.0-37.0); MCV 97.4 fL (80.0-100.0); Macrocytosis Slight; Mean Platelet Volume 6.9; Monocytes # (A) 0.6 k/uL (0-1.0); Monocytes % (A) 5 %; Neutrophils # (A) 9.5 k/uL (1.3-7.7); Neutrophils % (A) 84 %; Platelet Count 500 k/uL (150-450); RBC 2.98 m/uL (3.80-5.40); RDW 16.3 % (11.5-15.5); WBC 11.3 k/uL (3.8-10.6)
[2023-02-19 19:39] LABS: INR 0.9 (<1.2); Partial Thromboplastin Time 23.5 sec (22.0-30.0); Prothrombin Time 9.6 sec (9.0-12.0)
[2023-02-19 19:40] LABS: Calcium 10.1 mg/dL (8.4-10.2); Potassium 4.4 mmol/L (3.5-5.1); Total Bilirubin 1.2 mg/dL (0.2-1.3)
--- NOTE | 2023-02-19 19:52 | CT ---
EXAMINATION TYPE: CT abdomen pelvis wo con CT DLP: 316.4 mGycm, Automated exposure control for dose reduction was used. DATE OF EXAM: 02/19/2023 7:26 PM COMPARISON: CT abdomen pelvis most recent from 02/13/2023 CLINICAL INDICATION:Female, 77 years old with history of abdominal pain; LLQ abd pain TECHNIQUE: Axial CT of the abdomen and pelvis. Sagittal and coronal reformats were created on a [employer] workstation. Contrast used: None Oral contrast used: without Oral Contrast FINDINGS: LOWER CHEST: There is moderate to severe coronary artery calcifications. Heart is mildly enlarged for size. ABDOMEN LIVER: Unremarkable GALLBLADDER AND BILE DUCTS: The gallbladder is not definitively visualized may be nondistended versus surgically absent. PANCREAS: Unremarkable. SPLEEN: Unremarkable. ADRENAL GLANDS: Unremarkable. KIDNEYS AND URETERS: No evidence of hydronephrosis or renal calculus. Left renal cysts. Right renal c ysts some with layering high density suggesting hemorrhagic cysts. Additional high density cyst measu ring 5 mm in the right PELVIS BLADDER: Unremarkable REPRODUCTIVE there is a a simple appearing cyst measuring 9.3 x 7.2 cm in the right adnexa felt to be increased in size from 2017 where it measured 3.9 x 3.5 cm. ABDOMEN & PELVIS STOMACH AND BOWEL: No evidence of bowel obstruction. There is a large stool burden throughout the col on. Scattered colonic diverticula. PERITONEUM/RETROPERITONEUM: No evidence of pneumoperitoneum or free fluid. VASCULATURE: No evidence of aortic aneurysm. MUSCULOSKELETAL: No acute osseous abnormalities LYMPH NODES: No gross evidence for lymphadenopathy. SOFT TISSUE/ABDOMINAL WALL: Redemonstration of Left lower quadrant tubing with large hematoma in the rectus sheath measuring similarly at 19.1 x 3.9 x 6.9 cm when measuring similarly. This extends from the pubic symphysis up to the insertion of the tubing. Noncontrast technique limits evaluation for ac tive extravasation. IMPRESSION: 1. Similar left lower quadrant rectus sheath hematoma. This extends from the pubic symphysis up to t he insertion of the tubing. Correlate with CBC. Given noncontrast technique evaluation for active ext ravasation is limited. 2. There is a cystic structure in the pelvis which is unchanged from immediate prior. No new from 20 17 larger from 2017. Correlate for ovarian cysts. Consider evaluation ultrasound. 3. Similar suspected hemorrhagic/proteinaceous cysts on the right kidney. There is consider follow-u p nonemergent MRI renal mass protocol for complete evaluation of the kidneys cysts. 4. Colonic diverticulosis
[2023-02-19] MEDS ORDERED: HYDROmorphone 1 MG/ML 1 ML SYRINGE IVP PRN (21:28)
[2023-02-19] MEDS ORDERED: NALOXONE 0.4 MG/ML 1 ML VIAL IV PRN (21:28)
[2023-02-19] MEDS ORDERED: ONDANSETRON 4 MG/2 ML VIAL IVP PRN (21:28)
[2023-02-19] MEDS: SODIUM CHLORIDE 0.9% 1,000 ML IV SCH (21:40)
[2023-02-20] MEDS ORDERED: traMADol 50 MG TAB PO PRN (01:42)
[2023-02-20] MEDS ORDERED: ACETAMINOPHEN TAB 325 MG TAB PO PRN (01:42)
--- NOTE | 2023-02-20 01:52 | P.HPIM ---
History of Present Illness H&P Date: 02/19/23 Chief Complaint: abd pain 77 year old female with CKD 5 recently established with CAPD she is still receiving training to start dialysis at home. she was recently admitted and discharged for acute blood loss anemia found to have rectus sheath hematoma in the LLQ. today she is coming in after receiving a training session for PD. she went home after the session and started experiencing abd pain in the LLQ described it as severe sharp pain 10/10 in severity, radiates to the left flank. denies any fever, chills, urinary changes, GI bleeding, bowel habit changes , chest pain or SOB. denies any smoking or illicit drugs Review of Systems Pertinent positives as noted in HPI. All other systems were reviewed and are negative Past Medical History Past Medical History: Heart Failure, Eye Disorder, GI Bleed, Hyperlipidemia, Hypertension, Myocardial Infarction ([place]), Musculoskeletal Disorder, Osteoa rthritis (OA), Renal Disease Additional Past Medical History / Comment(s): Chronic anemia-iron deficiency, chronic kidney disease stage V, diverticular disease, osteoporosis; cataracts with lens replacement Last Myocardial Infarction Date:: 11/27/22 History of Any Multi-Drug Resistant Organisms: ESBL Date of last positivie culture/infection: 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 Source:: Urine Past Surgical History: Heart Catheterization With Stent, Orthopedic Surgery, Tonsillectomy, Tubal Ligation Additional Past Surgical History / Comment(s): removal ovary, bilateral cataract removal with lens implant, cervical spinal fusion, cervical steroid injection Past Anesthesia/Blood Transfusion Reactions: No Reported Reaction Date of Last Stent Placement:: 11/27/22 Past Psychological History: Anxiety Additional Psychological History / Comment(s): takes prozac and xanax for anxiety Smoking Status: Former smoker Past Alcohol Use History: Occasional Additional Past Alcohol Use History / Comment(s): does drink vodka, states having 3-4 drinks on the weekend and 1-2 drinks during the week. Past Drug Use History: None Reported - Past Family History Mother Family Medical History: Osteoarthritis (OA) Sister(s) Family Medical History: Cancer Additional Family Medical History / Comment(s): breast cancer Father Family Medical History: No Reported History Brother(s) Family Medical History: Osteoarthritis (OA) Daughter(s) Family Medical History: No Reported History Son(s) Family Medical History: No Reported History Medications and Allergies Home Medications Medication Instructions Recorded Confirmed Type Famotidine [Pepcid] 20 mg PO DAILY 02/26/20 02/19/23 History FLUoxetine HCL [PROzac] 40 mg PO DAILY 05/15/21 02/19/23 History Atorvastatin [Lipitor] 40 mg PO DAILY 01/03/23 02/19/23 History Cholecalciferol [Vitamin D3 (25 25 mcg PO DAILY 01/03/23 02/19/23 History Mcg = 1000 Iu)] Clopidogrel [Plavix] 75 mg PO DAILY 01/03/23 02/19/23 History Metoprolol Succinate [Toprol XL] 50 mg PO DAILY 01/03/23 02/19/23 History Sevelamer [Renvela] 1,600 mg PO TID-W/MEALS 01/03/23 02/19/23 History calcitrioL [Calcitriol] 0.25 mcg PO DAILY 01/03/23 02/19/23 History Sodium Bicarbonate Tab 650 mg PO BID #60 tab 01/04/23 02/19/23 Rx amLODIPine [Norvasc] 10 mg PO DAILY #30 tab 01/04/23 02/19/23 Rx Bumetanide [BUMEX] 1 mg PO DAILY 01/10/23 02/19/23 History traMADol HCl [Ultram] 50 mg PO Q6H PRN #6 tab 02/11/23 02/19/23 Rx Aspirin EC [Ecotrin Low Dose] 81 mg PO DAILY 02/13/23 02/19/23 History Acetaminophen Tab [Tylenol] 650 mg PO Q6HR PRN tab 02/14/23 02/19/23 Rx Allergies Allergy/AdvReac Type Severity Reaction Status Date / Time celecoxib [From Celebrex] Allergy Rash/Hives Verified 02/19/23 19:09 cephalexin [From Keflex] Allergy Unknown Verified 02/19/23 19:09 nitrofurantoin Allergy Rash all Verified 02/19/23 19:09 [From Macrobid] over nitrofurantoin Allergy Rash all Verified 02/19/23 19:09 macrocrystalline over [From Macrobid] sulfamethoxazole Allergy Face Verified 02/19/23 19:09 [From Bactrim] swelling trimethoprim [From Bactrim] Allergy Face Verified 02/19/23 19:09 swelling Physical Exam Vitals: Vital Signs Temp Pulse Resp BP Pulse Ox 02/19/23 21:41 98.4 F 78 16 152/84 97 02/19/23 18:14 97.6 F 91 16 172/78 100 Intake and Output 02/19/23 02/19/23 02/20/23 14:59 22:59 06:59 Other: # Voids 1 Weight 46.266 kg v Constitutional: No acute distress, conversant, pleasant Eyes: Anicteric sclerae, moist conjunctiva, Pupils equal round reactive to light ENMT: NC/AT Oropharynx clear, no erythema, or exudates Neck: Supple, no masses, or JVD No carotid bruits No thyromegaly Lungs: Clear to auscultation Clear to percussion Normal respiratory effort, no accessory muscle use Cardiovascular: Heart regular in rate and rhythm, No murmurs, gallops, or rubs No peripheral edema Abdominal: Soft Nontender, no guarding, rebound or rigidity Abdomen moving with respiration Normoactive bowel sounds peritoneal dialysis cath in place with leaking serous fluid from the tube. soaking her clothes, no tenderness to palpation of the abd, or the superficial skin , no erythema or induration Skin: Normal temperature, tone, texture, turgor Extremities: No digital cyanosis No clubbing Pedal pulses intact and symmetrical Radial pulses intact and symmetrical No calf tenderness Psychiatric: Alert and oriented to person, place and time Appropriate affect Neuro Muscles Strength 4/5 in all 4 extremities Sensation to light touch grossly present throughout Cranial nerves II-XII grossly intact Lymphatics: no palpable cervical or supraclavicular lymph nodes Results CBC & Chem 7: 02/19/23 19:13 02/19/23 19:13 Labs: Abnormal Lab Results - Last 24 Hours (Table) 02/19/23 02/19/23 Range/Units 19:13 19:13 WBC 11.3 H (3.8-10.6) k/uL RBC 2.98 L (3.80-5.40) m/uL Hgb 9.2 L (11.4-16.0) gm/dL Hct 29.0 L (34.0-46.0) % RDW 16.3 H (11.5-15.5) % Plt Count 500 H (150-450) k/uL Neutrophils # 9.5 H (1.3-7.7) k/uL Lymphocytes # 0.7 L (1.0-4.8) k/uL Sodium 129 L (137-145) mmol/L Chloride 95 L (98-107) mmol/L Carbon Dioxide 21 L (22-30) mmol/L BUN 61 H (7-17) mg/dL Creatinine 3.43 H (0.52-1.04) mg/dL Glucose 105 H (74-99) mg/dL Amylase 161 H (30-110) U/L Lipase 539 H (23-300) U/L Thrombosis Risk Factor Assmnt - Choose All That Apply Any of the Below Risk Factors Present?: No Other Risk Factors: No Each Risk Factor Represents 3 Points: Age 75 years or older Thrombosis Risk Factor Assessment Total Risk Factor Score: 3 Thrombosis Risk Factor Assessment Level: Very Low Risk Assessment and Plan Assessment: 77 year old female with CKD 5, s/p peritoneal catheter insertion currently receiving training on how to use it , presented with acute onset abd pain post flushing o f her catheter. I discussed the case with ED doc, and I accepted the admission for pain control under observation and for surgery evaluation due to leaking PD catheter. with anticipated length of stay < 2 midnights blood work showed stable chronic anemia with Hgb 9.2 WBC 11.3 , continue to monitor for fever, and trend WBC, afebrile CKD 5 with BUN 61, cr 3.4 LA 1.6 unremarkable slightly elevated lipase 534 , inconclusive LLQ abd pain , pain control with opiates CAD s/p stents , stable continue plavix and aspirin continue statin hypertension continue amlodipine and metoprolol full code DVT PPX mechanical due to recent bleeding
[2023-02-20] MEDS: DEXTROSE 5%-0.9% NACL 1,000 ML IV SCH ×2 (04:39→16:27)
[2023-02-20 07:02] LABS: Anisocytosis Slight; Basophils % (A) 1 %; Eosinophils # (A) 0.2 k/uL (0-0.7); Eosinophils % (A) 4 %; HCT 26.2 % (34.0-46.0); HGB 8.2 gm/dL (11.4-16.0); Hypochromasia Slight; Lymphocytes # (A) 0.9 k/uL (1.0-4.8); Lymphocytes % (A) 16 %; MCH 30.9 pg (25.0-35.0); MCHC 31.3 g/dL (31.0-37.0); MCV 98.8 fL (80.0-100.0); Macrocytosis Slight; Mean Platelet Volume 7.1; Monocytes # (A) 0.5 k/uL (0-1.0); Monocytes % (A) 9 %; Neutrophils # (A) 3.8 k/uL (1.3-7.7); Neutrophils % (A) 68 %; Platelet Count 456 k/uL (150-450); RBC 2.65 m/uL (3.80-5.40); RDW 16.2 % (11.5-15.5); WBC 5.6 k/uL (3.8-10.6)
[2023-02-20 07:22] LABS: Calcium 8.9 mg/dL (8.4-10.2); Magnesium 1.8 mg/dL (1.6-2.3); Phosphorus 3.1 mg/dL (2.5-4.5); Potassium 4.1 mmol/L (3.5-5.1); Total Bilirubin 0.7 mg/dL (0.2-1.3); Total Protein 5.5 g/dL (6.3-8.2)
[2023-02-20] MEDS: BUMETANIDE 1 MG TAB PO SCH (08:56)
[2023-02-20] MEDS: SEVELAMER 800 MG TAB PO SCH ×4 (08:57→15:48)
[2023-02-20] MEDS: amLODIPine 10 MG TAB PO SCH (08:57)
[2023-02-20] MEDS: SODIUM BICARBONATE TAB 650 MG TAB PO SCH ×2 (08:57→21:31)
[2023-02-20] MEDS: ASPIRIN 81 MG PO SCH ×2 (08:57→09:04)
[2023-02-20] MEDS: FLUoxetine HCL 20 MG CAP PO SCH (08:57)
[2023-02-20] MEDS: METOPROLOL SUCCINATE (ER) 50 MG TAB.ER.24H PO SCH (08:57)
[2023-02-20] MEDS: FAMOTIDINE 20 MG TAB PO SCH (08:58)
[2023-02-20] MEDS: CLOPIDOGREL 75 MG TAB PO SCH ×2 (08:58→09:04)
[2023-02-20] MEDS: ATORVASTATIN 40 MG TAB PO SCH (08:58)
--- NOTE | 2023-02-20 12:30 | P.GSCN ---
History of Present Illness Consult date: 02/20/23 History of present illness: CHIEF COMPLAINT: Abdominal pain HISTORY OF PRESENT ILLNESS: This is a 77-year-old female with a known history of chronic kidney disease and had placement of peritoneal dialysis catheter on 02/11/[address] Green. Patient was recently in the hospital on 02/14/2023 for rectus sheath hematoma. Patient was receiving training on how to use her peritoneal dialysis catheter and is having her catheter flushed. She had sharp, severe abdominal pain in the left lower quadrant after the catheter was flushed. She denies any nausea or vomiting. Denies any fevers. She does report tenderness where the peritoneal dialysis catheter is inserted. There is some leaking noted around the connecting tubing of the peritoneal dialysis catheter. Computed tomography scan abdomen had shown the similar rectus sheath hematoma. Patient has been taking her aspirin and Plavix at home she has known coronary disease with recent cardiac stents in November 2022. Patient does report her abdominal pain is better today. PAST MEDICAL HISTORY: See below PAST SURGICAL HISTORY: See below MEDICATIONS: See below ALLERGIES: See below SOCIAL HISTORY: No illicit drug use. REVIEW OF SYSTEMS: CONSTITUTIONAL: Denies fever or chills. HEENT: Denies blurred vision, vision changes, or eye pain. Denies hemoptysis CARDIOVASCULAR: Denies chest pain or pressure. RESPIRATORY: No shortness of breath. GASTROINTESTINAL: See HPI for pertinent findings HEMATOLOGIC: Denies bleeding disorders. GENITOURINARY: Denies any blood in urine or increased urinary frequency. SKIN: Denies pruitis. Denies rash. PHYSICAL EXAM: VITAL SIGNS: Reviewed GENERAL: Well-developed in no acute distress. HEENT: No sclera icterus. Extraocular movements grossly intact. Moist buccal mucosa. Head is atraumatic, normocephalic. No nasal drainage. ABDOMEN: Soft. Nondistended. Patient has minimal tenderness at the dialysis catheter insertion. The connection portion of the tubing appears to be leaking. Where the catheter goes into the abdomen there is no evidence of erythema or leakage. NEUROLOGIC: Alert and oriented. Cranial nerves II through XII grossly intact. LABORATORY DATA: WBC 11.3-5.6 Hgb 9.2-8.2 platelets 456 Sodium 131 potassium 4.1 creatinine 3.23 Lipase 539 IMAGING: Computed tomography scan similar left lower quadrant rectus sheath hematoma this extends from pubic symphysis up into the insertion of the tubing. There is cystic structure in the pelvis which is unchanged from immediate prior. Correlate for ovarian cysts. Similar a suspected hemorrhagic/proteinaceous cysts of the right kidney. Colonic diverticulosis. ASSESSMENT: 1. Abdominal pain 2. Leaking from peritoneal dialysis catheter 3. Mildly elevated lipase 4. Rectus sheath hematoma PLAN: -Further recommendations forthcoming per surgeon -Patient can have regular diet -Hold aspirin and Plavix until seen by surgeon -Continue supportive care Physician Silverware Etcher note has been reviewed by physician. Signing provider agrees with the documented findings, assessment, and plan of care. I have personally seen and examined the patient, reviewed the MAIL RIDER /PAs history, exam and MDM and agree with the assessment and plan as written. Based on total visit time, I have performed more than 50% of the visit. As above: Patient developed somewhat sudden onset abdominal pain yesterday evening. Described in the lower abdomen. May be more on the left than the right. She had a repeat CAT scan performed. When compared to the CAT scan from last week the rectus sheath hematoma. Relatively unchanged. The patient has a cyst in the pelvis measuring 7 x 9 cm again this seems pretty similar in size to the previous study. She had a much smaller cyst dating back to 2017. Patient had the catheter flushed yesterday while at the dialysis clinic. Apparently that was not causing any discomfort. Last night she was noted to have significant drainage from the catheter itself. When evaluated by our nurse practitioner there was noted to be drainage from the Luer-Prachi connection between the new piece of the tubing. When I evaluated at the bedside this was still slightly loose and was tightened further. No fevers. White blood cell count normal today. Hemoglobin stable. Patient says her pain gradually resolved after pain medications last night. It was gone this morning but then seemed to come back slightly. No change in appetite. On exam patient has mild ten derness. Some ecchymosis from the rectus sheath hematoma. Etiology for the patient's pain unclear at this time. Case was reviewed with nephrology. Continue observation for now. Will follow. 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 Source:: Urine Past Surgical History: Heart Catheterization With Stent, Orthopedic Surgery, Tonsillectomy, Tubal Ligation Additional Past Surgical History / Comment(s): removal ovary, bilateral cataract removal with lens implant, cervical spinal fusion, cervical steroid injection Past Anesthesia/Blood Transfusion Reactions: No Reported Reaction Date of Last Stent Placement:: 11/27/22 Past Psychological History: Anxiety Additional Psychological History / Comment(s): takes prozac and xanax for anxiety Smoking Status: Former smoker Past Alcohol Use History: Occasional Additional Past Alcohol Use History / Comment(s): does drink vodka, states having 3-4 drinks on the weekend and 1-2 drinks during the week. Past Drug Use History: None Reported - Past Family History Mother Family Medical History: Osteoarthritis (OA) Sister(s) Family Medical History: Cancer Additional Family Medical History / Comment(s): breast cancer Father Family Medical History: No Reported History Brother(s) Family Medical History: Osteoarthritis (OA) Daughter(s) Family Medical History: No Reported History Son(s) Family Medical History: No Reported History Medications and Allergies Home Medications Medication Instructions Recorded Confirmed Type Famotidine [Pepcid] 20 mg PO DAILY 02/26/20 02/19/23 History FLUoxetine HCL [PROzac] 40 mg PO DAILY 05/15/21 02/19/23 History Atorvastatin [Lipitor] 40 mg PO DAILY 01/03/23 02/19/23 History Cholecalciferol [Vitamin D3 (25 25 mcg PO DAILY 01/03/23 02/19/23 History Mcg = 1000 Iu)] Clopidogrel [Plavix] 75 mg PO DAILY 01/03/23 02/19/23 History Metoprolol Succinate [Toprol XL] 50 mg PO DAILY 01/03/23 02/19/23 History Sevelamer [Renvela] 1,600 mg PO TID-W/MEALS 01/03/23 02/19/23 History calcitrioL [Calcitriol] 0.25 mcg PO DAILY 01/03/23 02/19/23 History Sodium Bicarbonate Tab 650 mg PO BID #60 tab 01/04/23 02/19/23 Rx amLODIPine [Norvasc] 10 mg PO DAILY #30 tab 01/04/23 02/19/23 Rx Bumetanide [BUMEX] 1 mg PO DAILY 01/10/23 02/19/23 History traMADol HCl [Ultram] 50 mg PO Q6H PRN #6 tab 02/11/23 02/19/23 Rx Aspirin EC [Ecotrin Low Dose] 81 mg PO DAILY 02/13/23 02/19/23 History Acetaminophen Tab [Tylenol] 650 mg PO Q6HR PRN tab 02/14/23 02/19/23 Rx Allergies Allergy/AdvReac Type Severity Reaction Status Date / Time celecoxib [From Celebrex] Allergy Rash/Hives Verified 02/19/23 19:09 cephalexin [From Keflex] Allergy Unknown Verified 02/19/23 19:09 nitrofurantoin Allergy Rash all Verified 02/19/23 19:09 [From Macrobid] over nitrofurantoin Allergy Rash all Verified 02/19/23 19:09 macrocrystalline over [From Macrobid] sulfamethoxazole Allergy Face Verified 02/19/23 19:09 [From Bactrim] swelling trimethoprim [From Bactrim] Allergy Face Verified 02/19/23 19:09 swelling Surgical - Exam Vital Signs Temp Pulse Resp BP Pulse Ox 97.6 F 91 16 172/78 100 02/19/23 18:14 02/19/23 18:14 02/19/23 18:14 02/19/23 18:14 02/19/23 18:14 Results - Labs 02/20/23 06:33 02/20/23 06:33 Abnormal Lab Results - Last 24 Hours (Table) 02/19/23 02/19/23 02/20/23 Range/Units 19:13 19:13 06:33 WBC 11.3 H (3.8-10.6) k/uL RBC 2.98 L 2.65 L (3.80-5.40) m/uL Hgb 9.2 L 8.2 L (11.4-16.0) gm/dL Hct 29.0 L 26.2 L (34.0-46.0) % RDW 16.3 H 16.2 H (11.5-15.5) % Plt Count 500 H 456 H (150-450) k/uL Neutrophils # 9.5 H (1.3-7.7) k/uL Lymphocytes # 0.7 L 0.9 L (1.0-4.8) k/uL Sodium 129 L (137-145) mmol/L Chloride 95 L (98-107) mmol/L Carbon Dioxide 21 L (22-30) mmol/L BUN 61 H (7-17) mg/dL Creatinine 3.43 H (0.52-1.04) mg/dL Glucose 105 H (74-99) mg/dL Total Protein (6.3-8.2) g/dL Albumin (3.5-5.0) g/dL Amylase 161 H (30-110) U/L Lipase 539 H (23-300) U/L 02/20/23 Range/Units 06:33 WBC (3.8-10.6) k/uL RBC (3.80-5.40) m/uL Hgb (11.4-16.0) gm/dL Hct (34.0-46.0) % RDW (11.5-15.5) % Plt Count (150-450) k/uL Neutrophils # (1.3-7.7) k/uL Lymphocytes # (1.0-4.8) k/uL Sodium 131 L (137-145) mmol/L Chloride (98-107) mmol/L Carbon Dioxide (22-30) mmol/L BUN 54 H (7-17) mg/dL Creatinine 3.23 H (0.52-1.04) mg/dL Glucose (74-99) mg/dL Total Protein 5.5 L (6.3-8.2) g/dL Albumin 3.0 L (3.5-5.0) g/dL Amylase (30-110) U/L Lipase (23-300) U/L Diabetes panel 02/19/23 02/20/23 Range/Units 19:13 06:33 Sodium 129 L 131 L (137-145) mmol/L Potassium 4.4 4.1 (3.5-5.1) mmol/L Chloride 95 L 100 (98-107) mmol/L Carbon Dioxide 21 L 25 (22-30) mmol/L BUN 61 H 54 H (7-17) mg/dL Creatinine 3.43 H 3.23 H (0.52-1.04) mg/dL Glucose 105 H 91 (74-99) mg/dL Calcium 10.1 8.9 (8.4-10.2) mg/dL AST 26 24 (14-36) U/L ALT 17 15 (4-34) U/L Alkaline Phosphatase 93 59 (38-126) U/L Total Protein 7.0 5.5 L (6.3-8.2) g/dL Albumin 4.0 3.0 L (3.5-5.0) g/dL Calcium panel 02/19/23 02/20/23 Range/Units 19:13 06:33 Calcium 10.1 8.9 (8.4-10.2) mg/dL Phosphorus 3.1 (2.5-4.5) mg/dL Albumin 4.0 3.0 L (3.5-5.0) g/dL Pituitary panel 02/19/23 02/20/23 Range/Units 19:13 06:33 Sodium 129 L 131 L (137-145) mmol/L Potassium 4.4 4.1 (3.5-5.1) mmol/L Chloride 95 L 100 (98-107) mmol/L Carbon Dioxide 21 L 25 (22-30) mmol/L BUN 61 H 54 H (7-17) mg/dL Creatinine 3.43 H 3.23 H (0.52-1.04) mg/dL Glucose 105 H 91 (74-99) mg/dL Calcium 10.1 8.9 (8.4-10.2) mg/dL Adrenal panel 02/19/23 02/20/23 Range/Units 19:13 06:33 Sodium 129 L 131 L (137-145) mmol/L Potassium 4.4 4.1 (3.5-5.1) mmol/L Chloride 95 L 100 (98-107) mmol/L Carbon Dioxide 21 L 25 (22-30) mmol/L BUN 61 H 54 H (7-17) mg/dL Creatinine 3.43 H 3.23 H (0.52-1.04) mg/dL Glucose 105 H 91 (74-99) mg/dL Calcium 10.1 8.9 (8.4-10.2) mg/dL Total Bilirubin 1.2 0.7 (0.2-1.3) mg/dL AST 26 24 (14-36) U/L ALT 17 15 (4-34) U/L Alkaline Phosphatase 93 59 (38-126) U/L Total Protein 7.0 5.5 L (6.3-8.2) g/dL Albumin 4.0 3.0 L (3.5-5.0) g/dL
[2023-02-20 13:23] VITALS: BMI 18.6
[2023-02-20] MEDS ORDERED: DARBEPOETIN ALFA 60 MCG/0.3 ML SYRINGE SQ SCH (16:00)
--- NOTE | 2023-02-20 17:38 | P.PN ---
Subjective Progress Note Date: 02/20/23 Hospital course: Patient is a very pleasant 77-year-old female with a past medical history of CAD status post stenting, CHF, hypertension, hyperlipidemia, and chronic kidney disease stage V. Patient recently had peritoneal dialysis catheter placed and preparing to begin home peritoneal dialysis. She also reports recent hospitalization secondary to acute blood loss anemia in which she was found to have a rectus sheath hematoma in her left lower quadrant. Patient presented to the emergency department on 02/19/23 with a chief complaint of abdominal pain. Patient reports she began having severe abdominal pain status post flushing her peritoneal catheter. Patient denies having any other associated symptoms including headache, lightheadedness, fevers, chills, diaphoresis, chest pain, palpitations, shortness of breath, nausea, vomiting, changes in urinary function, diarrhea, constipation, melena, or hematochezia. Patient also denies having any drainage/bleeding/pain/discharge from peritoneal catheter site. Patient underwent full evaluation in the emergency department. Labs completed and reviewed. CBC revealing mild leukocytosis with WBC count of 11.3, normocytic anemia with hemoglobin of 9.2, and thrombocytosis with platelet count of 500. BMP revealing hyponatremia with sodium 129, hypochloremia with chloride of 95, hypocarbia with bicarb of 21, and renal function with BUN of 61, creatinine 3.43, and GFR of 12 (at baseline levels). Liver enzymes were unremarkable. Amylase was elevated at 161 and lipase also elevated at 539 (patient has chronically elevated lipase levels). CT abdomen and pelvis completed in radiology report reviewed showing similar left lower quadrant rectus sheath hematoma extending from pubic symphysis up to the insertion of the tubing, cystic structure in the pelvis unchanged from prior CT, and similar demetrius pected hemorrhagic/proteinaceous cyst on the right kidney, as well as colonic diverticulitis. Patient admitted under our services with consultation to general surgeon. Physical exam: Vital signs reviewed and stable. General: Nontoxic, no distress and appears stated age. Derm: Skin warm and dry, normal coloration for ethnicity. Head: Atraumatic, normocephalic and symmetric. Eyes: EOMs intact, no lid lag, and anicteric sclera Mouth: no lip lesions, mucus membranes moist Cardiovascular: regular rate and rhythm with normal S1S2, systolic murmur, positive posterior tibial pulses bilaterally, and cap refill < 2 seconds. Lungs: Respirations even, regular, and unlabored on room air. Lungs CTA bilaterally, no rhonchi, no rales, no wheezing, and no accessory muscle usage. Abdominal: soft, nontender to palpation, no guarding, no appreciable org anomegaly. Peritoneal dialysis catheter in place, no erythema or drainage noted at this time. Ext: ROM intact. No gross muscle atrophy, no edema, no contractures Neuro: Speech clear, face symmetrical and CN II-XII grossly intact with no noted focal neuro deficits Psych: Alert and oriented to person, place, time, and situation. Appropriate and pleasant affect. Assessment and Plan of Care: Abdominal/peritoneal pain status post recent peritoneal catheter placement Chronic kidney disease stage V Left lower quadrant rectus sheath hematoma Anemia of chronic disease -Labs completed and reviewed. CBC revealing mild leukocytosis with WBC count of 11.3, normocytic anemia with hemoglobin of 9.2, and thrombocytosis with platelet count of 500. BMP revealing hyponatremia with sodium 129, hypochloremia with chloride of 95, hypocarbia with bicarb of 21, and renal function with BUN of 61, creatinine 3.43, and GFR of 12 (at baseline levels). Liver enzymes were unremarkable. Amylase was elevated at 161 and lipase also elevated at 539 (patient has chronically elevated lipase levels). -CT abdomen and pelvis completed in radiology report reviewed showing similar left lower quadrant rectus sheath hematoma extending from pubic symphysis up to the insertion of the tubing, cystic structure in the pelvis unchanged from prior CT, and similar suspected hemorrhagic/proteinaceous cyst on the right kidney, as well as colonic diverticulitis. -Gen. surgery following, discussed plan of care with general surgery PA. General surgeon recommending continued overnight monitoring. -Continue darbepoetin 60 g every 7 days. -Continue with sodium bicarb 650 mg twice daily. -Order placed for repeat CBC and CMP with amylase labs. Suspected hemorrhagic/proteinaceous cyst on the right kidney -Recommend continued following with your procurement services manager and recommend nonemergent outpatient MRI renal mass protocol to be completed to more fully evaluate. History of coronary artery disease status post stenting CHF Hypertension Hyperlipidemia -Patient to continue daily cardiac medication regimen with amlodipine 10 mg daily, aspirin 81 mg daily, atorvastatin 40 mg daily, Bumex 1 mg daily, Plavix 75 mg daily, and metoprolol 50 mg daily. CODE STATUS: Full code DVT prophylaxis: SCDs Discussed with: patient, patient's , RN, and general surgery PA Anticipated discharge date: 24-[address]: home Patient was seen independently by Nurse Pracitioner. This document was prepared using [employer] dictation software. Please allow for errors in hose sprayer, while rare they do occur. This patient was seen independently by Dinesh Arce NP, I agree with documentation as above with the following additions: None. Objective - Vital Signs Vital signs: Vital Signs Temp 98.1 F 02/20/23 07:00 Pulse 76 02/20/23 07:00 Resp 16 02/20/23 07:00 BP 152/71 02/20/23 07:00 Pulse Ox 97 02/20/23 07:00 FiO2 Intake & Output 02/19/23 02/20/23 02/20/23 18:59 06:59 18:59 Weight 46.266 kg 46.266 kg Other: Voiding Method Toilet # Voids 2 - Labs CBC & Chem 7: 02/21/23 04:03 02/21/23 04:03 Labs: Abnormal Lab Results - Last 24 Hours (Table) 02/19/23 02/19/23 02/20/23 Range/Units 19:13 19:13 06:33 WBC 11.3 H (3.8-10.6) k/uL RBC 2.98 L 2.65 L (3.80-5.40) m/uL Hgb 9.2 L 8.2 L (11.4-16.0) gm/dL Hct 29.0 L 26.2 L (34.0-46.0) % RDW 16.3 H 16.2 H (11.5-15.5) % Plt Count 500 H 456 H (150-450) k/uL Neutrophils # 9.5 H (1.3-7.7) k/uL Lymphocytes # 0.7 L 0.9 L (1.0-4.8) k/uL Sodium 129 L (137-145) mmol/L Chloride 95 L (98-107) mmol/L Carbon Dioxide 21 L (22-30) mmol/L BUN 61 H (7-17) mg/dL Creatinine 3.43 H (0.52-1.04) mg/dL Glucose 105 H (74-99) mg/dL Total Protein (6.3-8.2) g/dL Albumin (3.5-5.0) g/dL Amylase 161 H (30-110) U/L Lipase 539 H (23-300) U/L 02/20/23 Range/Units 06:33 WBC (3.8-10.6) k/uL RBC (3.80-5.40) m/uL Hgb (11.4-16.0) gm/dL Hct (34.0-46.0) % RDW (11.5-15.5) % Plt Count (150-450) k/uL Neutrophils # (1.3-7.7) k/uL Lymphocytes # (1.0-4.8) k/uL Sodium 131 L (137-145) mmol/L Chloride (98-107) mmol/L Carbon Dioxide (22-30) mmol/L BUN 54 H (7-17) mg/dL Creatinine 3.23 H (0.52-1.04) mg/dL Glucose (74-99) mg/dL Total Protein 5.5 L (6.3-8.2) g/dL Albumin 3.0 L (3.5-5.0) g/dL Amylase (30-110) U/L Lipase (23-300) U/L
[2023-02-20] MEDS: SODIUM CHLORIDE 0.9% 1,000 ML IV SCH (21:33)
[2023-02-21 04:00] VITALS: TEMP 98.1
[2023-02-21] MEDS: DEXTROSE 5%-0.9% NACL 1,000 ML IV SCH (04:00)
[2023-02-21 04:32] LABS: Anisocytosis Slight; HCT 25.4 % (34.0-46.0); HGB 7.8 gm/dL (11.4-16.0); Hypochromasia Slight; MCH 30.4 pg (25.0-35.0); MCHC 30.6 g/dL (31.0-37.0); MCV 99.3 fL (80.0-100.0); Macrocytosis Slight; Mean Platelet Volume 7.2; Platelet Count 474 k/uL (150-450); RBC 2.56 m/uL (3.80-5.40); RDW 16.6 % (11.5-15.5)
[2023-02-21 04:43] LABS: ALT 13 U/L (4-34); AST 24 U/L (14-36); African American GFR (CKD) 15 (>60 ml/min/1.73 sqM); Albumin 2.9 g/dL (3.5-5.0); Albumin/Globulin Ratio 1.1; Alkaline Phosphatase 61 U/L (38-126); Anion Gap 7 mmol/L; Blood Urea Nitrogen 50 mg/dL (7-17); Calcium 9.1 mg/dL (8.4-10.2); Carbon Dioxide 25 mmol/L (22-30); Chloride 102 mmol/L (98-107); Globulin 2.7 g/dL; Glucose 92 mg/dL (74-99); Lipase 486 U/L (23-300); Magnesium 1.8 mg/dL (1.6-2.3); Non-African American GFR(CKD) 13 (>60 ml/min/1.73 sqM); Potassium 4.7 mmol/L (3.5-5.1); Sodium 134 mmol/L (137-145); Total Bilirubin 0.6 mg/dL (0.2-1.3); Total Protein 5.6 g/dL (6.3-8.2)
[2023-02-21 08:12] VITALS: BP 148/81; PULSE 78; RESP 16
[2023-02-21] MEDS: SODIUM BICARBONATE TAB 650 MG TAB PO SCH (10:08)
[2023-02-21] MEDS: ASPIRIN 81 MG PO SCH (10:08)
[2023-02-21] MEDS: SEVELAMER 800 MG TAB PO SCH ×2 (10:08→10:11)
[2023-02-21] MEDS: FAMOTIDINE 20 MG TAB PO SCH (10:09)
[2023-02-21] MEDS: ATORVASTATIN 40 MG TAB PO SCH (10:09)
[2023-02-21] MEDS: FLUoxetine HCL 20 MG CAP PO SCH (10:09)
[2023-02-21] MEDS: CLOPIDOGREL 75 MG TAB PO SCH (10:09)
[2023-02-21] MEDS: amLODIPine 10 MG TAB PO SCH (10:09)
[2023-02-21] MEDS: BUMETANIDE 1 MG TAB PO SCH (10:09)
[2023-02-21] MEDS: METOPROLOL SUCCINATE (ER) 50 MG TAB.ER.24H PO SCH (10:09)
--- NOTE | 2023-02-21 12:17 | P.PN ---
Subjective Progress Note Date: 02/21/23 Principal diagnosis: Abdominal pain Patient reports that she had minimal discomfort overnight. She is anxious to go home. She remains afebrile. White blood cell count remains normal. Hemoglobin 7.8 from 8.2. No further drainage from the catheter. Objective - Vital Signs Vital signs: Vital Signs Temp 98.1 F 02/21/23 07:00 Pulse 78 02/21/23 07:00 Resp 16 02/21/23 07:00 BP 148/81 02/21/23 07:00 Pulse Ox 100 02/21/23 07:00 FiO2 Intake & Output 02/20/23 02/21/23 02/21/23 18:59 06:59 18:59 Intake Total 236 118 Balance 236 118 Weight 46.266 kg Intake: Oral 236 118 Other: Voiding Method Toilet Toilet Toilet # Voids 2 2 - Exam Abdomen: Soft, nondistended, mild tenderness along rectus sheath hematoma site, ecchymosis about the same - Labs CBC & Chem 7: 02/21/23 04:03 02/21/23 04:03 Labs: Abnormal Lab Results - Last 24 Hours (Table) 02/21/23 02/21/23 Range/Units 04:03 04:03 RBC 2.56 L (3.80-5.40) m/uL Hgb 7.8 L (11.4-16.0) gm/dL Hct 25.4 L (34.0-46.0) % MCHC 30.6 L (31.0-37.0) g/dL RDW 16.6 H (11.5-15.5) % Plt Count 474 H (150-450) k/uL Sodium 134 L (137-145) mmol/L BUN 50 H (7-17) mg/dL Creatinine 3.32 H (0.52-1.04) mg/dL Total Protein 5.6 L (6.3-8.2) g/dL Albumin 2.9 L (3.5-5.0) g/dL Lipase 486 H (23-300) U/L Assessment and Plan (1) Abdominal pain Narrative/Plan: 77-year-old female with abdominal discomfort after attempts at flushing catheter yesterday. Etiology still somewhat unclear. Symptoms have improved. Suspect some degree of peritoneal irritation from the catheter or the hematoma itself. Stable for discharge from my standpoint. Follow-up next week in the office. Current Visit: Yes Status: Acute Code(s): R10.9 - UNSPECIFIED ABDOMINAL PAIN SNOMED Code(s): 67279849
--- NOTE | 2023-02-21 12:36 | P.OBCN ---
History of Present Illness Consult date: 02/21/23 Requesting physician: Chago Green Reason for consult: pelvic pain Chief complaint: lower pelvic pain History of present illness: This is a 77-year-old female well-known to myself with a long-standing history of ovarian cyst. Cyst has been approximately 7 cm in size simple in nature. Patient was in the hospital and rectus sheath hematoma. Patient had placement of peritoneal dialysis catheter on . Patient had been receiving training and how to use her dialysis catheter and having the catheter flushed when she subsequently had sharp severe abdominal pain in the left lower quadrant after the catheter was flushed. She denies any fevers or chills at that time no nausea or vomiting was appreciated. Patient did note tenderness where the peritoneal catheter was inserted. At that time CT was ordered showing a stable rectus sheath hematoma. In addition ovarian cyst was appreciated 9 cm in size, simple in appearance. Comparisons to the cyst were made to prior imaging done in 2017 with mild enlargement noted Patient is seen today and states she feels well. Pain has resolved. Patient is without complaints this morning and states she is getting ready for discharge home. 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:: 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 Source:: Urine Past Surgical History: Heart Catheterization With Stent, Orthopedic Surgery, Tonsillectomy, Tubal Ligation Additional Past Surgical History / Comment(s): removal ovary, bilateral cataract removal with lens implant, cervical spinal fusion, cervical steroid injection Past Anesthesia/Blood Transfusion Reactions: No Reported Reaction Date of Last Stent Placement:: 11/27/22 Past Psychological History: Anxiety Additional Psychological History / Comment(s): takes prozac and xanax for anxiety Smoking Status: Former smoker Past Alcohol Use History: Occasional Additional Past Alcohol Use History / Comment(s): does drink vodka, states having 3-4 drinks on the weekend and 1-2 drinks during the week. Past Drug Use History: None Reported - Past Family History Mother Family Medical History: Osteoarthritis (OA) Sister(s) Family Medical History: Cancer Additional Family Medical History / Comment(s): breast cancer Father Family Medical History: No Reported History Brother(s) Family Medical History: Osteoarthritis (OA) Daughter(s) Family Medical History: No Reported History Son(s) Family Medical History: No Reported History Medications and Allergies Home Medications Medication Instructions Recorded Confirmed Type Famotidine [Pepcid] 20 mg PO DAILY 02/26/20 02/19/23 History FLUoxetine HCL [PROzac] 40 mg PO DAILY 05/15/21 02/19/23 History Atorvastatin [Lipitor] 40 mg PO DAILY 01/03/23 02/19/23 History Cholecalciferol [Vitamin D3 (25 25 mcg PO DAILY 01/03/23 02/19/23 History Mcg = 1000 Iu)] Clopidogrel [Plavix] 75 mg PO DAILY 01/03/23 02/19/23 History Metoprolol Succinate [Toprol XL] 50 mg PO DAILY 01/03/23 02/19/23 History Sevelamer [Renvela] 1,600 mg PO TID-W/MEALS 01/03/23 02/19/23 History calcitrioL [Calcitriol] 0.25 mcg PO DAILY 01/03/23 02/19/23 History Sodium Bicarbonate Tab 650 mg PO BID #60 tab 01/04/23 02/19/23 Rx amLODIPine [Norvasc] 10 mg PO DAILY #30 tab 01/04/23 02/19/23 Rx Bumetanide [BUMEX] 1 mg PO DAILY 01/10/23 02/19/23 History traMADol HCl [Ultram] 50 mg PO Q6H PRN #6 tab 02/11/23 02/19/23 Rx Aspirin EC [Ecotrin Low Dose] 81 mg PO DAILY 02/13/23 02/19/23 History Acetaminophen Tab [Tylenol] 650 mg PO Q6HR PRN tab 02/14/23 02/19/23 Rx Allergies Allergy/AdvReac Type Severity Reaction Status Date / Time celecoxib [From Celebrex] Allergy Rash/Hives Verified 02/19/23 19:09 cephalexin [From Keflex] Allergy Unknown Verified 02/19/23 19:09 nitrofurantoin Allergy Rash all Verified 02/19/23 19:09 [From Macrobid] over nitrofurantoin Allergy Rash all Verified 02/19/23 19:09 macrocrystalline over [From Macrobid] sulfamethoxazole Allergy Face Verified 02/19/23 19:09 [From Bactrim] swelling trimethoprim [From Bactrim] Allergy Face Verified 02/19/23 19:09 swelling Exam Osteopathic Statement: *. No significant issues noted on an osteopathic structural exam other than those noted in the History and Physical/Consult. Vital Signs Temp Pulse Resp BP BP Pulse Ox 02/21/23 07:00 98.1 F 78 16 148/81 100 02/21/23 02:37 98.1 F 68 18 155/76 100 02/20/23 21:31 75 17 02/20/23 19:47 98.2 F 75 17 131/69 100 02/20/23 14:26 98 F 73 16 129/49 98 Intake and Output 02/20/23 02/21/23 02/21/23 22:59 06:59 14:59 Intake Total 118 118 Balance 118 118 Intake: Oral 118 118 Other: Voiding Method Toilet Toilet # Voids 2 This patient is in general well-nourished well-developed female in no acute distress sitting without discomfort at the side of the bed, talking with family. Results Result Diagrams: 02/21/23 04:03 02/21/23 04:03 Abnormal Lab Results - Last 24 Hours (Table) 02/21/23 02/21/23 Range/Units 04:03 04:03 RBC 2.56 L (3.80-5.40) m/uL Hgb 7.8 L (11.4-16.0) gm/dL Hct 25.4 L (34.0-46.0) % MCHC 30.6 L (31.0-37.0) g/dL RDW 16.6 H (11.5-15.5) % Plt Count 474 H (150-450) k/uL Sodium 134 L (137-145) mmol/L BUN 50 H (7-17) mg/dL Creatinine 3.32 H (0.52-1.04) mg/dL Total Protein 5.6 L (6.3-8.2) g/dL Albumin 2.9 L (3.5-5.0) g/dL Lipase 486 H (23-300) U/L Assessment and Plan (1) Hematoma Current Visit: Yes Status: Acute Code(s): T14.8XXA - OTHER INJURY OF UNSP ECIFIED BODY REGION, INITIAL ENCOUNTER SNOMED Code(s): 785874676 (2) Ovarian cyst Current Visit: Yes Status: Acute Code(s): N83.209 - UNSPECIFIED OVARIAN CYST, UNSPECIFIED SIDE SNOMED Code(s): 31528744 (3) Abdominal pain Current Visit: Yes Status: Acute Code(s): R10.9 - UNSPECIFIED ABDOMINAL PAIN SNOMED Code(s): 24416690 (4) Renal failure Current Visit: No Status: Acute Code(s): N19 - UNSPECIFIED KIDNEY FAILURE SNOMED Code(s): 39663518 Plan: 77-year-old female admitted with acute abdominal pain status post peritoneal catheter flush. Patient states pain has subsequently resolved. General surgery believes the catheter tip may have grazed the cyst and cased some discomfort. Patient did undergo CAT scan imaging of the pelvis revealing a 9 cm simple appearing cyst. Patient has a long-standing history of ovarian cyst. Patient is counseled on outpatient management with pelvic ultrasound for evaluation of the cyst. Patient states understanding of the plan of care and denies questions. Will plan to follow-up outpatient with ultrasound evaluation follow-up appointment to discuss results.
--- NOTE | 2023-02-21 12:54 | P.DS ---
Providers Date of admission: 02/19/23 21:28 Expected date of discharge: 02/21/23 Attending physician: Audrey Carey MD Consults: 02/20/23 01:44 Consult Physician Routine Consulting Provider: Chago Green Consult Reason/Comments: PD catheter leak Do you want consulting provider notified?: Yes 02/20/23 15:38 Consult Physician Routine Consulting Provider: Liliana Rose Consult Reason/Comments: cyst Do you want consulting provider notified?: Yes, Notify in am Primary care physician: [facility] Course: Discharge Diagnosis: Abdominal/peritoneal pain status post recent peritoneal catheter placement Chronic kidney disease stage V Left lower quadrant rectus sheath hematoma Anemia of chronic disease. Hemoglobin stable at 7.8 on day of discharge. Thrombocytosis, chronic. Platelets 474 on day of discharge. Suspected hemorrhagic/proteinaceous cyst on the right kidney. Recommend continued following with your variety saw operator and recommend nonemergent outpatient MRI renal mass protocol to be completed to more fully evaluate. History of coronary artery disease status post stenting. Patient to continue daily cardiac medication regimen with amlodipine 10 mg daily, aspirin 81 mg daily, atorvastatin 40 mg daily, Bumex 1 mg daily, Plavix 75 mg daily, and metoprolol 50 mg daily. CHF Hypertension Hyperlipidemia Hospital Course: Patient is a very pleasant 77-year-old female with a past medical history of CAD status post stenting, CHF, hypertension, hyperlipidemia, and chronic kidney disease stage V. Patient recently had peritoneal dialysis catheter placed and preparing to begin home peritoneal dialysis. She also reports recent hospitalization secondary to acute blood loss anemia in which she was found to have a rectus sheath hematoma in her left lower quadrant. Patient presented to the emergency department on 02/19/23 with a chief complaint of abdominal pain. Patient reports she began having severe abdominal pain status post flushing her peritoneal catheter. Patient denies having any other associated symptoms including headache, lightheadedness, fevers, chills, diaphoresis, chest pain, palpitations, shortness of breath, nausea, vomiting, changes in urinary function, diarrhea, constipation, melena, or hematochezia. Patient also denies having any drainage/bleeding/pain/discharge from peritoneal catheter site. Patient underwent full evaluation in the emergency department. Labs completed and reviewed. CBC revealing mild leukocytosis with WBC count of 11.3, normocytic anemia with hemoglobin of 9.2, and thrombocytosis with platelet count of 500. BMP revealing hyponatremia with sodium 129, hypochloremia with chloride of 95, hypocarbia with bicarb of 21, and renal function with BUN of 61, creatinine 3.43, and GFR of 12 (at baseline levels). Liver enzymes were unremarkable. Amylase was elevated at 161 and lipase also elevated at 539 (patient has chronically elevated lipase levels). CT abdomen and pelvis completed in radiology report reviewed showing similar left lower quadrant rectus sheath hematoma extending from pubic symphysis up to the insertion of the tubing, cystic structure in the pelvis unchanged from prior CT, and similar suspected hemorrhagic/proteinaceous cyst on the right kidney, as well as colonic diverticulitis. Patient admitted under our services with consultation to general surgeon. Patient monitored overnight tonight hospitalization. She had no further episodes of abdominal pain/discomfort. She was evaluated by general surgery recommending evaluation by COOK MESS. General surgery clearing patient from their perspective recommending outpatient follow-up in their office. C[facility] evaluated recommending outpatient ultrasound and cleared patient from gynecological perspective. Medically, patient is stable for discharge at this time. Patient instructed she will need to follow up with her PCP, general surgeon, as well as [facility]. Appointments made with Dr. Stinson and Dr. Rose were made prior to patient's discharge. Physical exam: Vital signs reviewed and stable. General: Nontoxic, no distress and appears stated age. Derm: Skin warm and dry, normal coloration for ethnicity. Head: Atraumatic, normocephalic and symmetric. Eyes: EOMs intact, no lid lag, and anicteric sclera Mouth: no lip lesions, mucus membranes moist Cardiovascular: regular rate and rhythm with normal S1S2, systolic murmur, positive posterior tibial pulses bilaterally, and cap refill < 2 seconds. Lungs: Respirations even, regular, and unlabored on room air. Lungs CTA bilaterally, no rhonchi, no rales, no wheezing, and no accessory muscle usage. Abdominal: soft, nontender to palpation, no guarding, no appreciable organomegaly. Peritoneal dialysis catheter in place, no erythema or drainage noted at this time. Ext: ROM intact. No gross muscle atrophy, no edema, no contractures Neuro: Speech clear, face symmetrical and CN II-XII grossly intact with no noted focal neuro deficits Psych: Alert and oriented to person, place, time, and situation. Appropriate and pleasant affect. A total of 33 minutes of time were spent preparing this complex discharge summary. Pt was discharged on 02/21/23 at 12:50 PM Patient was seen independently by Nurse Practitioner. This document was prepared using [employer] dictation software. Please allow for errors in bag adjuster while rare they do occur. Patient Condition at Discharge: Stable Plan - Discharge Summary Discharge Rx Participant: No New Discharge Prescriptions: Continue Famotidine [Pepcid] 20 mg PO DAILY FLUoxetine HCL [PROzac] 40 mg PO DAILY Atorvastatin [Lipitor] 40 mg PO DAILY calcitrioL [Calcitriol] 0.25 mcg PO DAILY Metoprolol Succinate [Toprol XL] 50 mg PO DAILY Sevelamer [Renvela] 1,600 mg PO TID-W/MEALS Sodium Bicarbonate Tab 650 mg PO BID #60 tab traMADol HCl [Ultram] 50 mg PO Q6H PRN #6 tab PRN Reason: Pain Aspirin EC [Ecotrin Low Dose] 81 mg PO DAILY Clopidogrel [Plavix] 75 mg PO DAILY Cholecalciferol [Vitamin D3 (25 Mcg = 1000 Iu)] 25 mcg PO DAILY amLODIPine [Norvasc] 10 mg PO DAILY #30 tab Bumetanide [BUMEX] 1 mg PO DAILY Acetaminophen Tab [Tylenol] 650 mg PO Q6HR PRN tab PRN Reason: Mild Pain Or Fever > 100.5 Discharge Medication List Famotidine [Pepcid] 20 mg PO DAILY 02/26/20 [History] FLUoxetine HCL [PROzac] 40 mg PO DAILY 05/15/21 [History] Atorvastatin [Lipitor] 40 mg PO DAILY 01/03/23 [History] Cholecalciferol [Vitamin D3 (25 Mcg = 1000 Iu)] 25 mcg PO DAILY 01/03/23 [History] Clopidogrel [Plavix] 75 mg PO DAILY 01/03/23 [History] Metoprolol Succinate [Toprol XL] 50 mg PO DAILY 01/03/23 [History] Sevelamer [Renvela] 1,600 mg PO TID-W/MEALS 01/03/23 [History] calcitrioL [Calcitriol] 0.25 mcg PO DAILY 01/03/23 [History] Sodium Bicarbonate Tab 650 mg PO BID #60 tab 01/04/23 [Rx] amLODIPine [Norvasc] 10 mg PO DAILY #30 tab 01/04/23 [Rx] Bumetanide [BUMEX] 1 mg PO DAILY 01/10/23 [History] traMADol HCl [Ultram] 50 mg PO Q6H PRN #6 tab 02/11/23 [Rx] Aspirin EC [Ecotrin Low Dose] 81 mg PO DAILY 02/13/23 [History] Acetaminophen Tab [Tylenol] 650 mg PO Q6HR PRN tab 02/14/23 [Rx] Follow up Appointment(s)/Referral(s): Chago Green MD [Medical Doctor] - 02/26/23 3:00 pm Evan Baez MD [Primary Care Provider] - 1-2 days Liliana Rose DO [Doctor of Osteopathic Medicine] - 03/06/23 1:00 pm () Patient Instructions/Handouts: Ovarian Cyst (DC), Dialysis Diet (DC), Acute Abdominal Pain (DC), Peritoneal Dialysis Catheter Care (DC) Activity/Diet/Wound Care/Special Instructions: Activity: As tolerated. Take breaks as needed. Diet: Heart healthy and carb consistent diet. Avoid salts, or foods with hidden salts such as canned or boxed foods and frozen dinners. Extra salt makes your heart work harder and traps the fluid in your body for longer. Special Instructions: Take all of your medications as directed and remember to keep all of your doctor's appointments and follow-up as needed. You will need to schedule an outpatient ultrasound with Dr. Rose [facility] as discussed with you today upon her visit. Suspected hemorrhagic/proteinaceous cyst on the right kidney. Recommend continued following with your variety saw operator and recommend nonemergent outpatient MRI renal to further evaluate. Thank you for allowing us to participate in your care, it was truly a pleasure having you for our patient!!! Discharge Disposition: HOME SELF-CARE
== END 2023-02-21 13:49 | disposition home or self-care (01) ==
LOC: EC 18:12 → 6NMEDSUR 21:28
PROVIDERS: ADMIT Internal Medicine; ATTEND Internal Medicine
DX: T85.631A Leakage of intraperitoneal dialysis catheter, initial encounter (principal); I13.2 Hypertensive heart and chronic kidney disease with heart failure and with stage 5 chronic kidney disease, or end stage renal disease; N18.5 Chronic kidney disease, stage 5; I50.9 Heart failure, unspecified; D63.1 Anemia in chronic kidney disease; Z99.2 Dependence on renal dialysis; S36.62XA Contusion of rectum, initial encounter; R74.8 Abnormal levels of other serum enzymes; N83.209 Unspecified ovarian cyst, unspecified side; E78.5 Hyperlipidemia, unspecified; Z87.891 Personal history of nicotine dependence; Z87.19 Personal history of other diseases of the digestive system; I25.2 Old myocardial infarction; M19.90 Unspecified osteoarthritis, unspecified site; M81.0 Age-related osteoporosis without current pathological fracture; Z86.19 Personal history of other infectious and parasitic diseases; Z95.5 Presence of coronary angioplasty implant and graft; Z98.51 Tubal ligation status; Z98.42 Cataract extraction status, left eye; Z98.41 Cataract extraction status, right eye; Z96.1 Presence of intraocular lens; Z98.1 Arthrodesis status; Z98.890 Other specified postprocedural states; F41.9 Anxiety disorder, unspecified; Z80.3 Family history of malignant neoplasm of breast; Z82.61 Family history of arthritis; Z79.02 Long term (current) use of antithrombotics/antiplatelets; Z79.82 Long term (current) use of aspirin; Z79.899 Other long term (current) drug therapy; Z88.1 Allergy status to other antibiotic agents; Z88.2 Allergy status to sulfonamides
CPT/HCPCS: 96361 ×3; 96372; 96374; 96375; 99285; 36415; 86900; 86901; 80053 ×3; 82150; 83605; 83690 ×2; 83735 ×2; 84100; 85025 ×2; 85027; 85610; 85730; 86850; 74176; G0378 ×3; J2405; J1170 ×2; J0881

== ENCOUNTER → 2023-06-19 | Outpatient (CLI) | payer MEDICARE, BC ==
--- NOTE | 2023-06-19 14:51 | XR ---
EXAMINATION TYPE: XR abdomen 1V DATE OF EXAM: 06/19/2023 Comparison: 02/13/2023 Clinical History: 78-year-old female PD TUBE PLACEMENT Findings: Pelvic peritoneal dialysis catheter is noted. Scattered bowel gas without abnormal dilatation. Supine imaging limited for assessment of free air. No significant stool burden. Vascular calcifications in the pelvis. Degenerative change mid to lower lumbar spine. Impression: Peritoneal dialysis catheter looped in the pelvis. Nonobstructive bowel gas pattern.
--- NOTE | 2023-06-19 16:10 | US ---
EXAMINATION TYPE: US kidneys/renal and bladder DATE OF EXAM: 06/19/2023 COMPARISON: NONE CLINICAL INDICATION: Female, 78 years old with history of N18.5 chronic kidney disease; CKD, no sympt oms EXAM MEASUREMENTS: Right Kidney: 9.1 x 4.0 x 4.2 cm Left Kidney: not seen Right Kidney: multiple cystic areas seen, largest is medial = 2.1 x 2.6 x 1.9cm. No hydronephrosis. Left Kidney: elderly female with prominent peristalsing bowel gas in the left upper quadrant obscurin g the left kidney. Bladder: wnl IMPRESSION: 1. The left kidney could not be adequately visualized for assessment due to excessive bowel gas and p atient's condition. 2. No hydronephrosis on the right. 3. Multiple right renal cysts measuring up to 2.6 cm.
== END | disposition home or self-care (01) ==
LOC: RADUSWWP 14:16
PROVIDERS: ATTEND Internal Medicine
DX: N18.5 Chronic kidney disease, stage 5 (principal); N28.1 Cyst of kidney, acquired; Z49.02 Encounter for fitting and adjustment of peritoneal dialysis catheter
CPT/HCPCS: 74018; 76770

== ENCOUNTER → 2023-07-21 | Outpatient (CLI) | payer MEDICARE, BC ==
[2023-07-21 21:34] LABS: Basophils # (A) 0.04 X 10*3/uL (0.00-0.10); Basophils % (A) 0.6 %; Eosinophils # (A) 0.22 X 10*3/uL (0.04-0.35); Eosinophils % (A) 3.4 %; HCT 28.4 % (37.2-46.3); HGB 8.9 d/dL (12.0-15.0); Lymphocytes # (A) 0.96 X 10*3/uL (0.90-5.00); MCH 31.2 pg (27.0-32.0); MCHC 31.3 d/dL (32.0-37.0); MCV 99.6 FL (80.0-97.0); Mean Platelet Volume 8.9 FL (9.5-12.2); Monocytes # (A) 0.73 X 10*3/uL (0.20-1.00); Monocytes % (A) 11.4 %; NRBC Per 100 WBC 0.02 X 10*3/uL (0.00-0.01); Neutrophils # (A) 4.42 X 10*3/uL (1.80-7.70); Neutrophils % (A) 69.1 %; Platelet Count 358 X 10*3/uL (140-440); RBC 2.85 X 10*6/uL (4.10-5.20); RDW 14.4 % (11.5-14.5)
[2023-07-22 01:28] LABS: T4, Free (Free Thyroxine) 1.18 ng/dL (0.80-1.80)
== END | disposition home or self-care (01) ==
LOC: LABWHC1 15:16
PROVIDERS: ATTEND Obstetrics & Gynecology
DX: E03.9 Hypothyroidism, unspecified (principal); D64.9 Anemia, unspecified
CPT/HCPCS: 36415; 84439; 84443; 84481; 85025

== ENCOUNTER → 2023-09-03 | Outpatient (CLI) | payer MEDICARE, BC ==
--- NOTE | 2023-09-03 16:19 | US ---
EXAMINATION TYPE: US abdomen complete DATE OF EXAM: 09/03/2023 COMPARISON: US, CT 2022, US 2016 CLINICAL INDICATION: Female, 78 years old with history of R10.9 ABD PAIN; Abdominal cramping since pa dulce had dialysis port placed in peritoneum last year per patient. Nausea x a couple days. TECHNIQUE: Multiple sonographic images of the abdomen are obtained. FINDINGS: EXAM MEASUREMENTS: Liver Length: 11.7 cm Gallbladder Wall: 0.18 cm CBD: 0.60 cm Spleen: 7.7 cm Right Kidney: 8.6 x 4.2 x 4.3 cm Left Kidney: 9.0 x 4.4 x 4.3 cm MEDICAL AIDE NOTES: Limited due to gas. Pancreas: Not well seen. Liver: Increased echogenicity. Gallbladder: Appears wnl Evidence for sonographic Soto's sign: No CBD: Measures upper limits Spleen: Slightly limited visibility. Right Kidney: Small in size. Multiple anechoic areas seen, largest seen medially at mid: 2.3 x 1.6 x 2.3 cm. Left Kidney: Increased echogenicity. Anechoic area seen laterally at upper pole: 2.7 x 2.3 x 2.2 cm. Upper IVC: Appears wnl Abd Aorta: Appears wnl, Iliacs were obscured. Ascites noted within the RUQ and LUQ. IMPRESSION: 1. Hepatic steatosis. 2. Simple appearing renal cysts. 3. Trace ascites.
== END | disposition home or self-care (01) ==
LOC: RADUSWWP 15:25
PROVIDERS: ATTEND Internal Medicine
DX: K76.0 Fatty (change of) liver, not elsewhere classified (principal); N28.1 Cyst of kidney, acquired; R18.8 Other ascites; Z99.2 Dependence on renal dialysis
CPT/HCPCS: 76700

== ENCOUNTER → 2023-09-22 | Outpatient (CLI) | payer MEDICARE, BC ==
[2023-09-22 18:57] LABS: Basophils # (A) 0.05 X 10*3/uL (0.00-0.10); Basophils % (A) 1.2 %; Eosinophils # (A) 0.06 X 10*3/uL (0.04-0.35); Eosinophils % (A) 1.4 %; HCT 37.7 % (37.2-46.3); HGB 12.3 g/dL (12.0-15.0); Lymphocytes # (A) 0.83 X 10*3/uL (0.90-5.00); Lymphocytes % (A) 19.5 %; MCH 30.8 pg (27.0-32.0); MCHC 32.6 g/dL (32.0-37.0); MCV 94.5 FL (80.0-97.0); Mean Platelet Volume 10.2 FL (9.5-12.2); Monocytes # (A) 0.66 X 10*3/uL (0.20-1.00); Monocytes % (A) 15.5 %; NRBC Per 100 WBC 0 X 10*3/uL (0.00-0.01); Neutrophils # (A) 2.64 X 10*3/uL (1.80-7.70); Neutrophils % (A) 62.2 %; Platelet Count 326 X 10*3/uL (140-440); RBC 3.99 X 10*6/uL (4.10-5.20); RDW 15.9 % (11.5-14.5); WBC 4.25 X 10*3/uL (4.50-10.00)
[2023-09-22 20:49] LABS: ALT 82 U/L (8-44); AST 138 U/L (13-35); Albumin 2.3 g/dL (3.8-4.9); Albumin/Globulin Ratio 0.88 Ratio (1.60-3.17); Alkaline Phosphatase 121 U/L (41-126); Amylase 58 U/L (23-121); BUN/Creat Ratio 7.38 Ratio (12.00-20.00); Blood Urea Nitrogen 35.4 mg/dL (9.0-27.0); Calcium 8.7 mg/dL (8.7-10.3); Carbon Dioxide 28.2 mmol/L (21.6-31.8); Chloride 92 mmol/L (96-109); Globulin 2.6 g/dL (1.6-3.3); Glucose 106 mg/dL (70-110); Iron 119 UG/DL (50-170); Lipase 75 U/L (14-63); Potassium 3.6 mmol/L (3.5-5.5); Sodium 131 mmol/L (135-145); Total Bilirubin 0.4 mg/dL (0.3-1.2); Total Iron Binding Capacity 140 UG/DL (228-460); Total Protein 4.9 g/dL (6.2-8.2)
== END | disposition home or self-care (01) ==
LOC: LABWHC1 14:56
PROVIDERS: ATTEND Internal Medicine Geriatric Medicine
DX: D64.9 Anemia, unspecified (principal); R10.9 Unspecified abdominal pain
CPT/HCPCS: 36415; 80053; 82150; 82607; 82728; 82746; 83540; 83550; 83690; 85025

== ENCOUNTER → 2023-10-21 | Outpatient (CLI) | payer MEDICARE, BC ==
[2023-10-21 18:42] LABS: Basophils # (A) 0.07 X 10*3/uL (0.00-0.10); Basophils % (A) 1.1 %; Eosinophils # (A) 0.15 X 10*3/uL (0.04-0.35); Eosinophils % (A) 2.4 %; HCT 39.5 % (37.2-46.3); HGB 12.9 g/dL (12.0-15.0); Lymphocytes # (A) 0.99 X 10*3/uL (0.90-5.00); Lymphocytes % (A) 16.2 %; MCH 30.6 pg (27.0-32.0); MCHC 32.7 g/dL (32.0-37.0); MCV 93.6 FL (80.0-97.0); Mean Platelet Volume 9.5 FL (9.5-12.2); Monocytes # (A) 0.77 X 10*3/uL (0.20-1.00); Monocytes % (A) 12.6 %; NRBC Per 100 WBC 0 X 10*3/uL (0.00-0.01); Neutrophils # (A) 4.12 X 10*3/uL (1.80-7.70); Neutrophils % (A) 67.2 %; Platelet Count 424 X 10*3/uL (140-440); RBC 4.22 X 10*6/uL (4.10-5.20); RDW 16.3 % (11.5-14.5); WBC 6.13 X 10*3/uL (4.50-10.00)
[2023-10-22 02:32] LABS: ALT 79 U/L (8-44); AST 131 U/L (13-35); Albumin 2.8 g/dL (3.8-4.9); Albumin/Globulin Ratio 0.93 Ratio (1.60-3.17); Alkaline Phosphatase 115 U/L (41-126); BUN/Creat Ratio 5.24 Ratio (12.00-20.00); Blood Urea Nitrogen 34.6 mg/dL (9.0-27.0); Calcium 10.8 mg/dL (8.7-10.3); Carbon Dioxide 29.2 mmol/L (21.6-31.8); Chloride 92 mmol/L (96-109); Glucose 89 mg/dL (70-110); Magnesium 2.7 mg/dL (1.5-2.4); Phosphorus 4.2 mg/dL (2.4-5.1); Potassium 3.2 mmol/L (3.5-5.5); Sodium 133 mmol/L (135-145); Total Bilirubin 0.4 mg/dL (0.3-1.2); Total Protein 5.8 g/dL (6.2-8.2); Uric Acid 4.6 mg/dL (2.9-7.7); VLDL Calculation 14.28 mg/dL (5.00-40.00)
[2023-10-22 02:41] LABS: Chol/HDL Ratio 1.37 Ratio; LDL Cholesterol,Calculated 43.7 mg/dL (0.0-131.0)
== END | disposition home or self-care (01) ==
LOC: LABWHC1 15:32
PROVIDERS: ATTEND Internal Medicine Geriatric Medicine
DX: E78.5 Hyperlipidemia, unspecified (principal); N18.6 End stage renal disease
CPT/HCPCS: 36415; 80053; 80061; 83735; 84100; 84443; 84550; 85025

== ENCOUNTER 2023-10-23 08:54 | Inpatient (IN) | payer MEDICARE, BC ==
[2023-10-23] MEDS ORDERED: SODIUM CHLORIDE 0.9% 1,000 ML IV STA (09:22)
--- NOTE | 2023-10-23 09:27 | ED ---
General Adult HPI - General Chief complaint: Weakness Stated complaint: Weakness Time Seen by Provider: 10/23/23 09:00 Source: patient, RN notes reviewed, old records reviewed Mode of arrival: ambulatory Limitations: no limitations - History of Present Illness Initial comments: This is an 78-year-old female presents emergency department with family who gives most of the history. Patient has had end-stage renal failure for the last few years. Patient started. She had dialysis in July and since then she has slowly become weaker over time has had a weight loss and more recently started having significant mental status change. Patient is sometimes even hallucinating. Patient denies any recent fever chills. Patient denies any chest pain or shortness of breath patient denies abdominal pain patient will become very nauseous if she tries to eat and will sometimes become incontinent of stool if she eats show she is very hesitant to eat or drink anything. Patient was told recently that her dialysate was clean of infection and looked according to the has not changed in color and is not become cloudy - Related Data Home Medications Medication Instructions Recorded Confirmed Famotidine [Pepcid] 20 mg PO DAILY 02/26/20 03/13/23 FLUoxetine HCL [PROzac] 40 mg PO DAILY 05/15/21 03/13/23 Atorvastatin [Lipitor] 40 mg PO DAILY 01/03/23 03/13/23 Cholecalciferol [Vitamin D3 (25 25 mcg PO DAILY 01/03/23 03/13/23 Mcg = 1000 Iu)] Clopidogrel [Plavix] 75 mg PO DAILY 01/03/23 03/13/23 Metoprolol Succinate [Toprol XL] 50 mg PO DAILY 01/03/23 03/13/23 Sevelamer [Renvela] 1,600 mg PO TID-W/MEALS 01/03/23 03/13/23 calcitrioL [Calcitriol] 0.25 mcg PO DAILY 01/03/23 03/13/23 Bumetanide [BUMEX] 1 mg PO DAILY 01/10/23 03/13/23 Aspirin EC [Ecotrin Low Dose] 81 mg PO DAILY 02/13/23 03/13/23 Previous Rx's Medication Instructions Recorded Sodium Bicarbonate Tab 650 mg PO BID #60 tab 01/04/23 amLODIPine [Norvasc] 10 mg PO DAILY #30 tab 01/04/23 traMADol HCl [Ultram] 50 mg PO Q6H PRN #6 tab 02/11/23 Acetaminophen Tab [Tylenol] 650 mg PO Q6HR PRN tab 02/14/23 Allergies Allergy/AdvReac Type Severity Reaction Status Date / Time celecoxib [From Celebrex] Allergy Rash/Hives Verified 10/23/23 09:00 cephalexin [From Keflex] Allergy Unknown Verified 10/23/23 09:00 nitrofurantoin Allergy Rash all Verified 10/23/23 09:00 [From Macrobid] over nitrofurantoin Allergy Rash all Verified 10/23/23 09:00 macrocrystalline over [From Macrobid] sulfamethoxazole Allergy Face Verified 10/23/23 09:00 [From Bactrim] swelling trimethoprim [From Bactrim] Allergy Face Verified 10/23/23 09:00 swelling Review of Systems ROS Statement: Those systems with pertinent positive or pertinent negative responses have been documented in the HPI. ROS Other: All systems not noted in ROS Statement are negative. Past Medical History Past Medical History: Heart Failure, Eye Disorder, GI Bleed, Hyperlipidemia, Hypertension, Myocardial Infarction (ID), Musculoskeletal Disorder, Oste oarthritis (OA), Renal Disease Additional Past Medical History / Comment(s): Chronic anemia-iron deficiency, chronic kidney disease stage V, diverticular disease, osteoporosis; cataracts with lens replacement Last Myocardial Infarction Date:: 11/27/22 History of Any Multi-Drug Resistant Organisms: ESBL Date of last positivie culture/infection: 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 Source:: Urine Past Surgical History: Heart Catheterization With Stent, Orthopedic Surgery, Tonsillectomy, Tubal Ligation Additional Past Surgical History / Comment(s): removal ovary, bilateral cataract removal with lens implant, cervical spinal fusion, cervical steroid injection Past Anesthesia/Blood Transfusion Reactions: No Reported Reaction Date of Last Stent Placement:: 11/27/22 Past Psychological History: Anxiety Smoking Status: Former smoker Past Alcohol Use History: Occasional Past Drug Use History: None Reported - Past Family History Mother Family Medical History: Osteoarthritis (OA) Sister(s) Family Medical History: Cancer Additional Family Medical History / Comment(s): breast cancer Father Family Medical History: No Reported History Brother(s) Family Medical History: Osteoarthritis (OA) Daughter(s) Family Medical History: No Reported History Son(s) Family Medical History: No Reported History General Exam - General Exam Comments Initial Comments: GENERAL: Patient is cachectic in appearance. Patient is nontoxic and well-hydrated and is in no acute distress. ENT: Neck is soft and supple. No significant lymphadenopathy is noted. Oropharynx is clear. Moist mucous membranes. Neck has full range of motion without eliciting any pain. EYES: The sclera were anicteric and conjunctiva were pink and moist. Extraocular movements were intact and pupils were equal round and reactive to light. Eyelids were unremarkable. PULMONARY: Unlabored respirations. Good breath sounds bilaterally. No audible rales rhonchi or wheezing was noted. CARDIOVASCULAR: There is a regular rate and rhythm without any murmurs gallops or rubs. ABDOMEN: Soft and nontender with normal bowel sounds. SKIN: Skin is clear with no lesions or rashes and otherwise unremarkable. NEUROLOGIC: Patient is alert and oriented and 2. Cranial nerves II through XII are grossly intact. Motor and sensory are also intact. Normal speech, volume and content. Symmetrical smile. MUSCULOSKELETAL: Normal extremities with adequate strength and full range of motion. LYMPHATICS: No significant lymphadenopathy is noted PSYCHIATRIC: Normal psychiatric evaluation. Limitations: no limitations Course Vital Signs 10/23/23 10/23/23 10/23/23 08:57 11:24 11:28 Temperature 97.3 F L Pulse Rate 80 73 73 Respiratory 18 16 16 Rate Blood Pressure 110/70 103/64 103/64 O2 Sat by Pulse 99 99 98 Oximetry Medical Decision Making - Medical Decision Making EKG is interpreted by myself. EKG shows a sinus rhythm at 71 bpm OK interval 190 QRS 100 a QT interval is 431 QTC is 454. Patient's EKG shows no significant ST segment elevation or depression. Was pt. sent in by a medical professional or institution (, PA, SEWAGE PLANT OPERATOR, urgent care, hospital, or senior care...) When possible be specific @ -No Did you speak to anyone other than the patient for history (EMS, parent, family, police, friend...)? What history was obtained from this source @ -No Did you review nursing and triage notes (agree or disagree)? Why? @ -I reviewed and agree with nursing and triage notes Were old charts reviewed (outside hosp., previous admission, EMS record, old EKG, old radiological studies, urgent care reports/EKG's, senior care records)? Report findings @ -I reviewed Prior charts and prior lab work on this patient Differential Diagnosis (chest pain, altered mental status, abdominal pain women, abdominal pain men, vaginal bleeding, weakness, fever, dyspnea, syncope, headache, dizziness, GI bleed, back pain, seizure, CVA, palpatations, mental health, musculoskeletal)? @ -Differential Weakness: Hypoglycemia, shock, sepsis, hyponatremia, anemia, infection, ID, ETOH, adverse medicine reaction, overdose, stroke, this is not meant to be an all-inclusive list. EKG interpreted by me (3pts min.). @ -As above X-rays interpreted by me (1pt min.). @ -Chest x-ray shows no acute abnormality CT interpreted by me (1pt min.). @ -CT scan shows no acute abnormality U/S interpreted by me (1pt. min.). @ -None done What testing was considered but not performed or refused? (CT, X-rays, U/S, labs)? Why? @ -None What meds were considered but not given or refused? Why? @ -None Did you discuss the management of the patient with other professionals (professionals i.e. , PA, SEWAGE PLANT OPERATOR, lab, RT, psych nurse, social media marketing manager, director of education, teacher, nuclear security officer, shoe parts caser)? Give summary @ -I spoke with Dr. Corcoran she agreed to admit the patient Was smoking cessation discussed for >3mins.? @ -No Was critical care preformed (if so, how long)? @ -No Were there social determinants of health that impacted care today? How? (Homel essness, low income, unemployed, alcoholism, drug addiction, transportation, low edu. Level, literacy, decrease access to med. care, nursing home, rehab)? @ -No Was there de-escalation of care discussed even if they declined (Discuss DNR or withdrawal of care, Hospice)? DNR status @ -No What co-morbidities impacted this encounter? (DM, HTN, Smoking, COPD, CAD, Cancer, CVA, ARF, Chemo, Hep., AIDS, mental health diagnosis, sleep apnea, morbid obesity)? @ -None Was patient admitted / discharged? Hospital course, mention meds given and route, prescriptions, significant lab abnormalities, going to OR and other pertinent info. @ -Patient had a urine that he look like infection so started the patient on Cipro. I consulted nephrology and I admitted the patient to Dr. Corcoran patient also had a low potassium I gave the patient KCl 20 mEq Undiagnosed new problem with uncertain prognosis? @ -No Drug Therapy requiring intensive monitoring for toxicity (Heparin, Nitro, Insulin, Cardizem)? @ -No Were any procedures done? @ -No Diagnosis/symptom? @ -Urinary tract infection Acute, or Chronic, or Acute on Chronic? @ -Acute Uncomplicated (without systemic symptoms) or Complicated (systemic symptoms)? @ -Complicated Side effects of treatment? @ -No Exacerbation, Progression, or Severe Exacerbation? @ -No Poses a threat to life or bodily function? How? (Chest pain, [place], ID, pneumonia, PE, COPD, DKA, ARF, appy, cholecystitis, CVA, Diverticulitis, Homicidal, Suicidal, threat to staff... and all critical care pts) @ -Yes this can lead to sepsis and end organ dysfunction Diagnosis/symptom? @ -Generalized weakness Acute, or Chronic, or Acute on Chronic? @ -Acute on chronic Uncomplicated (without systemic symptoms) or Complicated (systemic symptoms)? @ -Complicated Side effects of treatment? @ -none Exacerbation, Progression, or Severe Exacerbation] @ -no Poses a threat to life or bodily function? @ -no Diagnosis/symptom? @ -Hypokalemia Acute, or Chronic, or Acute on Chronic? @ -Acute Uncomplicated (without systemic symptoms) or Complicated (systemic symptoms)? @ -Uncomplicated Side effects of treatment? @ -none Exacerbation, Progression, or Severe Exacerbation] @ -no Poses a threat to life or bodily function? @ -no - Lab Data Result diagrams: 10/23/23 09:45 10/23/23 09:45 Lab Results 10/23/23 10/23/23 10/23/23 Range/Units 09:45 09:45 09:45 WBC 8.8 (3.8-10.6) k/uL RBC 4.27 (3.80-5.40) m/uL Hgb 13.4 (11.4-16.0) gm/dL Hct 40.3 (34.0-46.0) % MCV 94.3 (80.0-100.0) fL MCH 31.3 (25.0-35.0) pg MCHC 33.2 (31.0-37.0) g/dL RDW 16.0 H (11.5-15.5) % Plt Count 430 (150-450) k/uL MPV 7.6 Neutrophils % 78 % Lymphocytes % 10 % Monocytes % 7 % Eosinophils % 2 % Basophils % 0 % Neutrophils # 6.8 (1.3-7.7) k/uL Lymphocytes # 0.9 L (1.0-4.8) k/uL Monocytes # 0.6 (0-1.0) k/uL Eosinophils # 0.2 (0-0.7) k/uL Basophils # 0.0 (0-0.2) k/uL Anisocytosis Slight PT 9.9 L (10.0-12.5) sec INR 0.9 (<1.2) APTT 23.0 (22.0-30.0) sec Sodium (137-145) mmol/L Potassium (3.5-5.1) mmol/L Chloride (98-107) mmol/L Carbon Dioxide (22-30) mmol/L Anion Gap mmol/L BUN (7-17) mg/dL Creatinine (0.52-1.04) mg/dL Est GFR (CKD-EPI)AfAm (>60 ml/min/1.73 sqM) Est GFR (CKD-EPI)NonAf (>60 ml/min/1.73 sqM) Glucose (74-99) mg/dL Plasma Lactic Acid Omar (0.7-2.0) mmol/L Calcium (8.4-10.2) mg/dL Magnesium (1.6-2.3) mg/dL Total Bilirubin (0.2-1.3) mg/dL AST (14-36) U/L ALT (4-34) U/L Alkaline Phosphatase (38-126) U/L Troponin I (0.000-0.034) ng/mL Total Protein (6.3-8.2) g/dL Albumin (3.5-5.0) g/dL Urine Color Yellow Urine Appearance Turbid H (Clear) Urine pH 7.0 (5.0-8.0) Ur Specific [place] 1.020 (1.001-1.035) Urine Protein 1+ H (Negative) Urine Glucose (UA) Negative (Negative) Urine Ketones Negative (Negative) Urine Blood Small H (Negative) Urine Nitrite Negative (Negative) Urine Bilirubin 1+ H (Negative) Urine Urobilinogen 2.0 (<2.0) mg/dL Ur Leukocyte Esterase Large H (Negative) Urine RBC 9 H (0-5) /hpf Urine WBC >182 H (0-5) /hpf Urine WBC Clumps Many H (None) /hpf Ur Squamous Epith Cells 4 (0-4) /hpf Urine Bacteria Many H (None) /hpf Hyaline Casts 10 H (0-2) /lpf Urine Mucus Moderate H (None) /hpf Influenza Type A (PCR) (Not Detectd) Influenza Type B (PCR) (Not Detectd) RSV (PCR) (Not Detectd) SARS-CoV-2 (PCR) (Not Detectd) 10/23/23 10/23/23 10/23/23 Range/Units 09:45 09:45 09:45 WBC (3.8-10.6) k/uL RBC (3.80-5.40) m/uL Hgb (11.4-16.0) gm/dL Hct (34.0-46.0) % MCV (80.0-100.0) fL MCH (25.0-35.0) pg MCHC (31.0-37.0) g/dL RDW (11.5-15.5) % Plt Count (150-450) k/uL MPV Neutrophils % % Lymphocytes % % Monocytes % % Eosinophils % % Basophils % % Neutrophils # (1.3-7.7) k/uL Lymphocytes # (1.0-4.8) k/uL Monocytes # (0-1.0) k/uL Eosinophils # (0-0.7) k/uL Basophils # (0-0.2) k/uL Anisocytosis PT (10.0-12.5) sec INR (<1.2) APTT (22.0-30.0) sec Sodium 131 L (137-145) mmol/L Potassium 3.3 L (3.5-5.1) mmol/L Chloride 94 L (98-107) mmol/L Carbon Dioxide 30 (22-30) mmol/L Anion Gap 7 mmol/L BUN 33 H (7-17) mg/dL Creatinine 6.78 H (0.52-1.04) mg/dL Est GFR (CKD-EPI)AfAm 6 (>60 ml/min/1.73 sqM) Est GFR (CKD-EPI)NonAf 5 (>60 ml/min/1.73 sqM) Glucose 123 H (74-99) mg/dL Plasma Lactic Acid Omar 2.0 (0.7-2.0) mmol/L Calcium 9.9 (8.4-10.2) mg/dL Magnesium 3.1 H (1.6-2.3) mg/dL Total Bilirubin 0.4 (0.2-1.3) mg/dL AST 121 H (14-36) U/L ALT 66 H (4-34) U/L Alkaline Phosphatase 135 H (38-126) U/L Troponin I 0.029 (0.000-0.034) ng/mL Total Protein 5.9 L (6.3-8.2) g/dL Albumin 2.6 L (3.5-5.0) g/dL Urine Color Urine Appearance (Clear) Urine pH (5.0-8.0) Ur Specific [place] (1.001-1.035) Urine Protein (Negative) Urine Glucose (UA) (Negative) Urine Ketones (Negative) Urine Blood (Negative) Urine Nitrite (Negative) Urine Bilirubin (Negative) Urine Urobilinogen (<2.0) mg/dL Ur Leukocyte Esterase (Negative) Urine RBC (0-5) /hpf Urine WBC (0-5) /hpf Urine WBC Clumps (None) /hpf Ur Squamous Epith Cells (0-4) /hpf Urine Bacteria (None) /hpf Hyaline Casts (0-2) /lpf Urine Mucus (None) /hpf Influenza Type A (PCR) (Not Detectd) Influenza Type B (PCR) (Not Detectd) RSV (PCR) (Not Detectd) SARS-CoV-2 (PCR) (Not Detectd) 10/23/23 Range/Units 09:45 WBC (3.8-10.6) k/uL RBC (3.80-5.40) m/uL Hgb (11.4-16.0) gm/dL Hct (34.0-46.0) % MCV (80.0-100.0) fL MCH (25.0-35.0) pg MCHC (31.0-37.0) g/dL RDW (11.5-15.5) % Plt Count (150-450) k/uL MPV Neutrophils % % Lymphocytes % % Monocytes % % Eosinophils % % Basophils % % Neutrophils # (1.3-7.7) k/uL Lymphocytes # (1.0-4.8) k/uL Monocytes # (0-1.0) k/uL Eosinophils # (0-0.7) k/uL Basophils # (0-0.2) k/uL Anisocytosis PT (10.0-12.5) sec INR (<1.2) APTT (22.0-30.0) sec Sodium (137-145) mmol/L Potassium (3.5-5.1) mmol/L Chloride (98-107) mmol/L Carbon Dioxide (22-30) mmol/L Anion Gap mmol/L BUN (7-17) mg/dL Creatinine (0.52-1.04) mg/dL Est GFR (CKD-EPI)AfAm (>60 ml/min/1.73 sqM) Est GFR (CKD-EPI)NonAf (>60 ml/min/1.73 sqM) Glucose (74-99) mg/dL Plasma Lactic Acid Omar (0.7-2.0) mmol/L Calcium (8.4-10.2) mg/dL Magnesium (1.6-2.3) mg/dL Total Bilirubin (0.2-1.3) mg/dL AST (14-36) U/L ALT (4-34) U/L Alkaline Phosphatase (38-126) U/L Troponin I (0.000-0.034) ng/mL Total Protein (6.3-8.2) g/dL Albumin (3.5-5.0) g/dL Urine Color Urine Appearance (Clear) Urine pH (5.0-8.0) Ur Specific [place] (1.001-1.035) Urine Protein (Negative) Urine Glucose (UA) (Negative) Urine Ketones (Negative) Urine Blood (Negative) Urine Nitrite (Negative) Urine Bilirubin (Negative) Urine Urobilinogen (<2.0) mg/dL Ur Leukocyte Esterase (Negative) Urine RBC (0-5) /hpf Urine WBC (0-5) /hpf Urine WBC Clumps (None) /hpf Ur Squamous Epith Cells (0-4) /hpf Urine Bacteria (None) /hpf Hyaline Casts (0-2) /lpf Urine Mucus (None) /hpf Influenza Type A (PCR) Not Detected (Not Detectd) Influenza Type B (PCR) Not Detected (Not Detectd) RSV (PCR) Not Detected (Not Detectd) SARS-CoV-2 (PCR) Not Detected (Not Detectd) Disposition Clinical Impression: Generalized weakness, Urinary tract infection, Hypokalemia, Altered mental status Disposition: ADMITTED IP TO THIS HOSP Referrals: Evan Baez MD [Primary Care Provider] - 1-2 days Time of Disposition: 11:40
[2023-10-23 10:14] LABS: Anisocytosis Slight; Basophils % (A) 0 %; Eosinophils # (A) 0.2 k/uL (0-0.7); Eosinophils % (A) 2 %; HCT 40.3 % (34.0-46.0); HGB 13.4 gm/dL (11.4-16.0); Lymphocytes # (A) 0.9 k/uL (1.0-4.8); Lymphocytes % (A) 10 %; MCH 31.3 pg (25.0-35.0); MCHC 33.2 g/dL (31.0-37.0); MCV 94.3 fL (80.0-100.0); Mean Platelet Volume 7.6; Monocytes # (A) 0.6 k/uL (0-1.0); Monocytes % (A) 7 %; Neutrophils # (A) 6.8 k/uL (1.3-7.7); Neutrophils % (A) 78 %; Platelet Count 430 k/uL (150-450); RBC 4.27 m/uL (3.80-5.40); WBC 8.8 k/uL (3.8-10.6)
[2023-10-23 10:23] LABS: INR 0.9 (<1.2); Prothrombin Time 9.9 sec (10.0-12.5)
[2023-10-23 10:24] LABS: Appearance,Urine Turbid (Clear); Bacteria,Urine Many /hpf; Bilirubin,Urine 1+ (Negative); Blood,Urine Small (Negative); Color,Urine Yellow; Glucose,Urine (UA) Negative (Negative); Hyaline Casts,Urine 10 /lpf (0-2); Ketones,Urine Negative (Negative); Leukocyte Esterase,Urine Large (Negative); Mucus,Urine Moderate /hpf; Nitrite,Urine Negative (Negative); Protein,Urine 1+ (Negative); RBC,Urine 9 /hpf (0-5); Squamous Epithelial Cell,Urine 4 /hpf (0-4); WBC,Urine >182 /hpf (0-5)
[2023-10-23 10:31] LABS: ALT 66 U/L (4-34); AST 121 U/L (14-36); African American GFR (CKD) 6 (>60 ml/min/1.73 sqM); Albumin 2.6 g/dL (3.5-5.0); Alkaline Phosphatase 135 U/L (38-126); Anion Gap 7 mmol/L; Blood Urea Nitrogen 33 mg/dL (7-17); Calcium 9.9 mg/dL (8.4-10.2); Carbon Dioxide 30 mmol/L (22-30); Chloride 94 mmol/L (98-107); Glucose 123 mg/dL (74-99); Magnesium 3.1 mg/dL (1.6-2.3); Non-African American GFR(CKD) 5 (>60 ml/min/1.73 sqM); Potassium 3.3 mmol/L (3.5-5.1); Sodium 131 mmol/L (137-145); Total Bilirubin 0.4 mg/dL (0.2-1.3); Total Protein 5.9 g/dL (6.3-8.2)
[2023-10-23] MEDS ORDERED: LEVOFLOXACIN 500MG-D5W PMX 500 MG in DEXTROSE/WATER 1 100ML.BAG IVPB STA (10:43)
[2023-10-23] MEDS ORDERED: POTASSIUM CHLORIDE 20 MEQ in WATER FOR INJECTION 1 100ML.BAG IVPB STA (10:58)
--- NOTE | 2023-10-23 11:08 | CT ---
EXAMINATION TYPE: CT brain wo con CT DLP: 1152.4 mGycm, Automated exposure control for dose reduction was used. DATE OF EXAM: 10/23/2023 10:21 AM COMPARISON: None. CLINICAL INDICATION:Female, 78 years old with history of weakness, Weakness, confusion, no appetite TECHNIQUE: Brain: Axial CT images of the brain were obtained with coronal and sagittal reformats created and rev iewed. Contrast used: None. Oral contrast used: None. FINDINGS: Extra-axial spaces: No abnormal extra-axial fluid collections. Ventricular system: Ventricles appear dilated in proportion to the degree of cerebral atrophy. Cerebral parenchyma: No increased attenuation to suggest acute intraparenchymal hemorrhage. The gra y-white matter interface appears maintained. Moderate generalized brain atrophy. Scattered hypoatte nuating areas are seen within the cerebral white matter, nonspecific but most often seen with chronic microvascular ischemic changes; moderate in degree. Cerebellum: No acute abnormality. Mass effect: No evidence of mass effect or midline shift. Intracranial vasculature: Atherosclerotic calcifications of the larger arteries near the skull base. Soft tissues: Normal. Visualized orbits: Orbital contents appear grossly intact. There has likely been previous lens surg maribeth. Calvarium/osseous structures: No evidence of calvarial fracture. Paranasal sinuses and mastoid air cells: Clear MRI is more sensitive for detecting acute processes such as infarct, and may be considered if clinica lly warranted. IMPRESSION: No acute intracranial CT abnormality. Moderate atrophy and chronic vessel ischemic changes.
--- NOTE | 2023-10-23 11:18 | XR ---
EXAMINATION TYPE: XR chest 2V DATE OF EXAM: 10/23/2023 COMPARISON: 01/04/2023 INDICATION: Weakness TECHNIQUE: Frontal and lateral views of the chest are obtained. FINDINGS: The heart size is normal. The pulmonary vasculature is normal. The lungs are clear. IMPRESSION: 1. No acute pulmonary process.
[2023-10-23] MEDS ORDERED: POTASSIUM CHLORIDE ER 20 MEQ TAB.ER PO STA (13:38)
[2023-10-23] MEDS ORDERED: LACTULOSE 20 GM/30 ML CUP PO ONE (13:39)
[2023-10-23] MEDS ORDERED: LACTULOSE 20 GM/30 ML CUP PO PRN (13:39)
--- NOTE | 2023-10-23 13:39 | P.NPCON ---
History of Present Illness - Reason for Consult end stage renal disease - History of Present Illness Patient is an 78-year-old female with end-stage renal disease maintained on peritoneal dialysis. She is admitted to the hospital with increased weakness and mental status changes as per ER chart.documentation. Patient has had decreased oral intake recently There was concern about peritonitis however patient denies any pain in the abdomen and she states that the fluid has been clear. Patient is not able to provide detailed history. Potassium is low at 3.3. Blood pressure is on the lower side at 103 and 1 10 mmHg. WBC not elevated on CBC. Past Medical History Past Medical History: Heart Failure, Eye Disorder, GI Bleed, Hyperlipidemia, Hypertension, Myocardial Infarction (MD), Musculoskeletal Disorder, Osteoarthritis (OA), Renal Disease Additional Past Medical History / Comment(s): Chronic anemia-iron deficiency, chronic kidney disease stage V, diverticular disease, osteoporosis; cataracts with lens replacement Last Myocardial Infarction Date:: 11/27/22 History of Any Multi-Drug Resistant Organisms: ESBL Date of last positivie culture/infection: 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 Source:: Urine Past Surgical History: Heart Catheterization With Stent, Orthopedic Surgery, Tonsillectomy, Tubal Ligation Additional Past Surgical History / Comment(s): removal ovary, bilateral cataract removal with lens implant, cervical spinal fusion, cervical steroid injection Past Anesthesia/Blood Transfusion Reactions: No Reported Reaction Date of Last Stent Placement:: 11/27/22 Past Psychological History: Anxiety Smoking Status: Former smoker Past Alcohol Use History: Occasional Past Drug Use History: None Reported - Past Family History Mother Family Medical History: Osteoarthritis (OA) Sister(s) Family Medical History: Cancer Additional Family Medical History / Comment(s): breast cancer Father Family Medical History: No Reported History Brother(s) Family Medical History: Osteoarthritis (OA) Daughter(s) Family Medical History: No Reported History Son(s) Family Medical History: No Reported History Medications and Allergies Home Medications Medication Instructions Recorded Confirmed Type Famotidine [Pepcid] 20 mg PO DAILY 02/26/20 10/23/23 History Atorvastatin [Lipitor] 40 mg PO DAILY 01/03/23 10/23/23 History Cholecalciferol [Vitamin D3 (25 25 mcg PO DAILY 01/03/23 10/23/23 History Mcg = 1000 Iu)] Clopidogrel [Plavix] 75 mg PO DAILY 01/03/23 10/23/23 History Metoprolol Succinate [Toprol XL] 50 mg PO DAILY 01/03/23 10/23/23 History calcitrioL [Calcitriol] 0.25 mcg PO MOWEFR 01/03/23 10/23/23 History amLODIPine [Norvasc] 10 mg PO DAILY #30 tab 01/04/23 10/23/23 Rx Aspirin EC [Ecotrin Low Dose] 81 mg PO DAILY 02/13/23 10/23/23 History ALPRAZolam [Xanax] 0.125 mg PO BID PRN 10/23/23 10/23/23 History Bumetanide [BUMEX] 2 mg PO DAILY 10/23/23 10/23/23 History Calcium Acetate [Phoslo] 1,334 mg PO TID-W/MEALS 10/23/23 10/23/23 History FLUoxetine HCL 20 mg PO BID 10/23/23 10/23/23 History Folic Acid/Vit B Complex and C 0.8 mg PO DAILY 10/23/23 10/23/23 History [Nephro-Trang Tablet] Magnesium Oxide [Mag-Ox] 400 mg PO HS 10/23/23 10/23/23 History Megestrol [Megace] 40 mg PO DAILY 10/23/23 10/23/23 History Ondansetron Odt [Zofran Odt] 4 mg PO DAILY 10/23/23 10/23/23 History Ondansetron Odt [Zofran Odt] 4 mg PO Q6H PRN 10/23/23 10/23/23 History Pantoprazole [Protonix] 40 mg PO BID 10/23/23 10/23/23 History Potassium Chloride ER [K-Dur 10] 10 meq PO DAILY 10/23/23 10/23/23 History bisacodyL [Dulcolax] 10 mg PO HS 10/23/23 10/23/23 History buPROPion XL [Wellbutrin XL] 150 mg PO HS 10/23/23 10/23/23 History Allergies Allergy/AdvReac Type Severity Reaction Status Date / Time celecoxib [From Celebrex] Allergy Rash/Hives Verified 10/23/23 12:34 cephalexin [From Keflex] Allergy Unknown Verified 10/23/23 12:34 nitrofurantoin Allergy Rash all Verified 10/23/23 12:34 [From Macrobid] over nitrofurantoin Allergy Rash all Verified 10/23/23 12:34 macrocrystalline over [From Macrobid] sulfamethoxazole Allergy Face Verified 10/23/23 12:34 [From Bactrim] swelling trimethoprim [From Bactrim] Allergy Face Verified 10/23/23 12:34 swelling Physical Exam Vitals: Vital Signs Temp Pulse Resp BP Pulse Ox 10/23/23 11:28 73 16 103/64 98 10/23/23 11:24 73 16 103/64 99 10/23/23 08:57 97.3 F L 80 18 110/70 99 Intake and Output 10/22/23 10/23/23 10/23/23 22:59 06:59 14:59 Other: Weight 44.906 kg Patient is awake, comfortable, no acute distress Answers questions but at times is confused. Examination of the heart S1 and S2 Examination of the lungs decreased breath sounds at the bases no crackles or wh eezing is heard Abdomen is soft nontender. Examination of lower extremity shows no edema. Results - Lab Results Most recent lab results Calcium 9.9 mg/dL (8.4-10.2) 10/23/23 09:45 Magnesium 3.1 mg/dL (1.6-2.3) H 10/23/23 09:45 10/23/23 09:45 10/23/23 09:45 Assessment and Plan Assessment: 1. End-stage renal disease maintained on peritoneal dialysis 2. Hypokalemia secondary to decreased oral intake and pd 3. Mental status changes most likely secondary to UTI 4. Pyuria rule out UTI Plan: Agree with IV fluids [place] IV antibiotics PD exchanges with 1.5% solution to 6 hours Replace potassium Repeat labs in a.m. Send PD fluid for cell count and culture Thank you for the consultation. We will continue to follow the patient with you during her hospitalization.
[2023-10-23] MEDS: SODIUM CHLORIDE 0.9% 1,000 ML IV SCH (14:19)
[2023-10-23] MEDS ORDERED: MELATONIN 3 MG TABLET PO PRN (15:01)
[2023-10-23] MEDS ORDERED: ACETAMINOPHEN TAB 325 MG TAB PO PRN (15:01)
[2023-10-23] MEDS ORDERED: NALOXONE 0.4 MG/ML 1 ML VIAL IV PRN (15:01)
--- NOTE | 2023-10-23 15:11 | P.HPIM ---
History of Present Illness H&P Date: 10/23/23 Patient is an 78-year-old female peritoneal dialysis with history of systolic ischemic cardiomyopathy last known ejection fraction 35%, hypertension, dyslipidemia, coronary artery disease status post PCI, and multiple other comorbid conditions who presented to the ER due to increasing weakness, fatigue, and loss of appetite. On arrival to the ER her vital signs were within normal limits. Initial laboratory analysis included CBC, coags, CMP which were remarkable for sodium 131, potassium 3.3, BUN 33, creatinine 6.78, AST 121, ALT 66. Urinalysis was consistent with UTI and she was started on Levaquin. Influenza A/B/RSV/COVID-19 testing was negative. Arrangements were made for admission. Nephrology was consulted. Patient seen and examined at bedside. She states that she has been getting more confused and weak at home. She is able to tell me that several weeks ago her Dilusol it was changed due to worsening lower extremity edema. Over the last several days she has had some nausea with decreased appetite. She has not had a bowel movement in approximately 1 week. She has been taking some [id number] stool softeners to help with this at home. She urinates approximately 3 times daily and has not noted a significant change in urinary pattern but does have some abdominal discomfort. She has chronic back pain with deep breathing since having COVID. She has no other complaints currently. She does report that her sent in a sample of dialysate fluid yesterday w hich did not come back consistent with infection. Vital signs reviewed General: nontoxic, no distress, appears at stated age Derm: warm, dry Eyes: EOMI, no lid lag, anicteric sclera, pupils equal round reactive to light ENT: Nose and ears atraumatic, no thrush, no pharyngeal erythema Cardiovascular: S1S2 reg, no murmur, positive posterior tibial pulse bilateral, no edema, capillary refill less than 2 seconds Lungs: clear to auscultation bilateral, no rhonchi, no rales, no wheeze, no accessory muscle use Abdominal: soft, nontender to palpation, no guarding, no appreciable organomegaly, normal bowel sounds Ext: no gross muscle atrophy, muscle strength 5 out of 5 in all 4 extremities, no contractures Neuro: CN II-XII grossly intact, light touch intact all 4 extremities, finger to nose within normal limits, Psych: Alert, oriented, appropriate affect Assessment/Plan: Acute metabolic encephalopathy UTI Generalized weakness and debility Nausea and vomiting Constipation Hepatic steatosis with chronically elevated liver enzymes - Start ertapenem 500 mg IV piggyback daily based on patient's prior history of ESBL x 2 in the urine -Check orthostatic vital signs -Start lactulose 20 mg p.o. x 1 now and then as needed -Check abdominal x-ray to rule out obstruction -Normal saline at 75 cc/h -Resume home Megace -PT/OT -Fall precautions - repeat CMP in AM Hypokalemia -Patient has not tolerating IV replacement. Dscontinue IV and replace with 20 mill equivalents p.o. x 1 -Calcitriol 0.25 mcg Friday, Friday, Friday, PhosLo 1134 mg 3 times daily with meals, vitamin D 25 mg daily Peritoneal dialysis -Discussed with Dr. Whatley who will resume her peritoneal dialysis. -Will check peritoneal fluid for signs of infection Compensated systolic cardiomyopathy with ejection fraction 35% Hypertension Dyslipidemia Coronary artery disease -Norvasc 10 mg daily, metoprolol 50 mg daily -Aspirin 81 mg daily-Plavix 75 mg daily -Lipitor 40 mg daily -Hold Bumex due to patient appearing hypovolemic Chronic: Prior GI bleed Cataract disease Diverticular disease Iron deficiency anemia Osteoarthritis History of ESBL Imaging: As per HPI Data Review: per HPI The patient is admitted as observation with the last plan 2 midnight anticipated length of stay Surrogate decision-maker: DVT prophylaxis: Heparin Anticipated discharge date: 24 to [address]: Home with home health for senior care facility This dictation was prepared using [employer] voice recognition software. Though every attempt is made to correct errors during dictation some may still exist. Past Medical History Past Medical History: Heart Failure, Eye Disorder, GI Bleed, Hyperlipidemia, Hypertension, Myocardial Infarction (IA), Musculoskeletal Disorder, Oste oarthritis (OA), Renal Disease Additional Past Medical History / Comment(s): Chronic anemia-iron deficiency, chronic kidney disease stage V, diverticular disease, osteoporosis; cataracts with lens replacement Last Myocardial Infarction Date:: 11/27/22 History of Any Multi-Drug Resistant Organisms: ESBL Date of last positivie culture/infection: 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 Source:: Urine Past Surgical History: Heart Catheterization With Stent, Orthopedic Surgery, Tonsillectomy, Tubal Ligation Additional Past Surgical History / Comment(s): removal ovary, bilateral cataract removal with lens implant, cervical spinal fusion, cervical steroid injection Past Anesthesia/Blood Transfusion Reactions: No Reported Reaction Date of Last Stent Placement:: 11/27/22 Past Psychological History: Anxiety Smoking Status: Former smoker Past Alcohol Use History: Occasional Past Drug Use History: None Reported - Past Family History Mother Family Medical History: Osteoarthritis (OA) Sister(s) Family Medical History: Cancer Additional Family Medical History / Comment(s): breast cancer Father Family Medical History: No Reported History Brother(s) Family Medical History: Osteoarthritis (OA) Daughter(s) Family Medical History: No Reported History Son(s) Family Medical History: No Reported History Medications and Allergies Home Medications Medication Instructions Recorded Confirmed Type Famotidine [Pepcid] 20 mg PO DAILY 02/26/20 10/23/23 History Atorvastatin [Lipitor] 40 mg PO DAILY 01/03/23 10/23/23 History Cholecalciferol [Vitamin D3 (25 25 mcg PO DAILY 01/03/23 10/23/23 History Mcg = 1000 Iu)] Clopidogrel [Plavix] 75 mg PO DAILY 01/03/23 10/23/23 History Metoprolol Succinate [Toprol XL] 50 mg PO DAILY 01/03/23 10/23/23 History calcitrioL [Calcitriol] 0.25 mcg PO MOWEFR 01/03/23 10/23/23 History amLODIPine [Norvasc] 10 mg PO DAILY #30 tab 01/04/23 10/23/23 Rx Aspirin EC [Ecotrin Low Dose] 81 mg PO DAILY 02/13/23 10/23/23 History ALPRAZolam [Xanax] 0.125 mg PO BID PRN 10/23/23 10/23/23 History Bumetanide [BUMEX] 2 mg PO DAILY 10/23/23 10/23/23 History Calcium Acetate [Phoslo] 1,334 mg PO TID-W/MEALS 10/23/23 10/23/23 History FLUoxetine HCL 20 mg PO BID 10/23/23 10/23/23 History Folic Acid/Vit B Complex and C 0.8 mg PO DAILY 10/23/23 10/23/23 History [Nephro-Trang Tablet] Magnesium Oxide [Mag-Ox] 400 mg PO HS 10/23/23 10/23/23 History Megestrol [Megace] 40 mg PO DAILY 10/23/23 10/23/23 History Ondansetron Odt [Zofran Odt] 4 mg PO DAILY 10/23/23 10/23/23 History Ondansetron Odt [Zofran Odt] 4 mg PO Q6H PRN 10/23/23 10/23/23 History Pantoprazole [Protonix] 40 mg PO BID 10/23/23 10/23/23 History Potassium Chloride ER [K-Dur 10] 10 meq PO DAILY 10/23/23 10/23/23 History bisacodyL [Dulcolax] 10 mg PO HS 10/23/23 10/23/23 History buPROPion XL [Wellbutrin XL] 150 mg PO HS 10/23/23 10/23/23 History Allergies Allergy/AdvReac Type Severity Reaction Status Date / Time celecoxib [From Celebrex] Allergy Rash/Hives Verified 10/23/23 12:34 cephalexin [From Keflex] Allergy Unknown Verified 10/23/23 12:34 nitrofurantoin Allergy Rash all Verified 10/23/23 12:34 [From Macrobid] over nitrofurantoin Allergy Rash all Verified 10/23/23 12:34 macrocrystalline over [From Macrobid] sulfamethoxazole Allergy Face Verified 10/23/23 12:34 [From Bactrim] swelling trimethoprim [From Bactrim] Allergy Face Verified 10/23/23 12:34 swelling Physical Exam Osteopathic Statement: *. No significant issues noted on an osteopathic structural exam other than those noted in the History and Physical/Consult. Vitals: Vital Signs Temp Pulse Resp BP Pulse Ox 10/23/23 14:23 80 16 111/60 98 10/23/23 11:28 73 16 103/64 98 10/23/23 11:24 73 16 103/64 99 10/23/23 08:57 97.3 F L 80 18 110/70 99 Intake and Output 10/23/23 10/23/23 10/23/23 06:59 14:59 22:59 Other: Weight 44.906 kg Results CBC & Chem 7: 10/23/23 09:45 10/23/23 09:45 Labs: Abnormal Lab Results - Last 24 Hours (Table) 10/23/23 10/23/23 10/23/23 Range/Units 09:45 09:45 09:45 RDW 16.0 H (11.5-15.5) % Lymphocytes # 0.9 L (1.0-4.8) k/uL PT 9.9 L (10.0-12.5) sec Sodium (137-145) mmol/L Potassium (3.5-5.1) mmol/L Chloride (98-107) mmol/L BUN (7-17) mg/dL Creatinine (0.52-1.04) mg/dL Glucose (74-99) mg/dL Magnesium (1.6-2.3) mg/dL AST (14-36) U/L ALT (4-34) U/L Alkaline Phosphatase (38-126) U/L Total Protein (6.3-8.2) g/dL Albumin (3.5-5.0) g/dL Urine Appearance Turbid H (Clear) Urine Protein 1+ H (Negative) Urine Blood Small H (Negative) Urine Bilirubin 1+ H (Negative) Ur Leukocyte Esterase Large H (Negative) Urine RBC 9 H (0-5) /hpf Urine WBC >182 H (0-5) /hpf Urine WBC Clumps Many H (None) /hpf Urine Bacteria Many H (None) /hpf Hyaline Casts 10 H (0-2) /lpf Urine Mucus Moderate H (None) /hpf 10/23/23 Range/Units 09:45 RDW (11.5-15.5) % Lymphocytes # (1.0-4.8) k/uL PT (10.0-12.5) sec Sodium 131 L (137-145) mmol/L Potassium 3.3 L (3.5-5.1) mmol/L Chloride 94 L (98-107) mmol/L BUN 33 H (7-17) mg/dL Creatinine 6.78 H (0.52-1.04) mg/dL Glucose 123 H (74-99) mg/dL Magnesium 3.1 H (1.6-2.3) mg/dL AST 121 H (14-36) U/L ALT 66 H (4-34) U/L Alkaline Phosphatase 135 H (38-126) U/L Total Protein 5.9 L (6.3-8.2) g/dL Albumin 2.6 L (3.5-5.0) g/dL Urine Appearance (Clear) Urine Protein (Negative) Urine Blood (Negative) Urine Bilirubin (Negative) Ur Leukocyte Esterase (Negative) Urine RBC (0-5) /hpf Urine WBC (0-5) /hpf Urine WBC Clumps (None) /hpf Urine Bacteria (None) /hpf Hyaline Casts (0-2) /lpf Urine Mucus (None) /hpf
[2023-10-23] MEDS: DIALYSIS (PERIT 1.5%) 2,000 ML 30 G/2,000 ML BAG INTRAPERIT SCH ×2 (16:27→18:40)
[2023-10-23] MEDS ORDERED: IOPAMIDOL CONTRAST (ORAL USE) VIAL PO PRN (17:50)
[2023-10-23] MEDS ORDERED: DIALYSIS (PERIT 1.5%) 2,000 ML 30 G/2,000 ML BAG INTRAPERIT SCH (18:00)
--- NOTE | 2023-10-23 18:07 | XR ---
EXAMINATION TYPE: XR abdomen 2V DATE OF EXAM: 10/23/2023 CLINICAL DATA: 78 year-old female constipation, rule out obstruction, PHH COMPARISON: 06/19/2023 FINDINGS: Lung bases are clear. No evidence for free intraperitoneal air. There is a mildly dilated small bowel loop in the left mid abdomen measuring up to 3.2 cm. No differe ntial air-fluid levels are seen. There is moderate stool extensively throughout the colon. A peritoneal dialysis catheter is looped within the midline pelvis. Vascular calcifications suggesting underlying chronic kidney disease. IMPRESSION: 1. Moderate overall stool burden may reflect constipation. 2. A solitary borderline to mildly dilated small bowel loop in the left midabdomen measuring up to 3. 2 cm. Overall nonobstructive bowel gas pattern. Findings may reflect a mild regional ileus or enterit is. 3. Peritoneal dialysis catheter looped within the mid pelvis.
[2023-10-23] MEDS: PANTOPRAZOLE 40 MG TABLET PO SCH (18:09)
[2023-10-23] MEDS: CALCIUM ACETATE 667 MG TAB PO SCH (18:09)
[2023-10-23] MEDS: ONDANSETRON 4 MG/2 ML VIAL IVP PRN (20:07)
[2023-10-23] MEDS: MAGNESIUM OXIDE 400 MG TAB PO SCH (21:26)
[2023-10-23] MEDS: HEPARIN SODIUM,PORCINE 5,000 UNIT/ML 1 ML VIAL SQ SCH (21:26)
[2023-10-23] MEDS: FLUoxetine HCL 20 MG CAP PO SCH (21:26)
[2023-10-23] MEDS: buPROPion XL 150 MG TAB.ER.24H PO SCH (21:26)
--- NOTE | 2023-10-23 22:21 | CT ---
EXAMINATION TYPE: CT abdomen wo con CT DLP: 216 mGycm, Automated exposure control for dose reduction was used. DATE OF EXAM: 10/23/2023 8:51 PM COMPARISON: None. CLINICAL INDICATION:Female, 78 years old with history of nausea and vomiting; n/v TECHNIQUE: Axial CT of the abdomen with no IV contrast, per order. Sagittal and coronal reformats we re created on a separate workstation. Contrast used: mL of , (none if empty) Oral contrast used: with Oral Contrast (none if empty) FINDINGS: Exam is limited without IV contrast. LOWER CHEST: Mild bibasilar scarring and/or subsegmental atelectasis. Heart size is normal. No perica rdial effusion. There are heavy coronary arterial calcifications and/or stents. Partial eventration a long the hemidiaphragms bilaterally with some abdominal contents extending up into the chest. Moderat e sized hiatal hernia with esophageal contrast seen above the level of the hernia and the hernia, and proximal stomach show a thickened appearance of the wall which could be due to inflammation/esophago gastritis but neoplasm remains a possibility. ABDOMEN LIVER: Cirrhotic hepatic morphology. Mild periportal edema. GALLBLADDER AND BILE DUCTS: Unremarkable gallbladder however surrounded by ascites. No biliary ductal dilatation. PANCREAS: No acute finding. A calcification along the mid pancreas is believed to be vascular rather than secondary to chronic pancreatitis. SPLEEN: Unremarkable. Measures 7.8 cm. ADRENAL GLANDS: Unremarkable. KIDNEYS AND URETERS: No evidence of renal/ureteral calculi or hydronephrosis. There are vascular calc ifications in the renal jose carlos. There are multiple nodules of various sizes and attenuation throughout the kidneys. Hypodense nodules, including a posterior one in the mid left kidney measuring 2 cm, are convincingly cysts. A couple small hypodensities in the right superior pole, one in the mid kidney, a couple of the lower kidney, also likely cysts. There are a couple small hyperdense nodules in the ri ght kidney which are favored to be hyperdense/hemorrhagic cysts. I see no discrete urinary tract calc torey or hydronephrosis. PARTIALLY SEEN STRUCTURES: STOMACH AND BOWEL: Moderate sized hiatal hernia with esophageal contrast seen above the level of the hernia and the hernia and proximal stomach show a thickened appearance of the wall which could be due to inflammation/esophagogastritis but neoplasm remains a possibility.Contrast is seen within the sto mach and multiple small bowel loops without evidence of obstruction. Partially visualized appendix is believed to be within normal limits. Moderate stool and gas throughout colon. Descending colon is re dundant. An intraperitoneal drainage catheter is seen entering through the left anterior abdominal wa ll and extending intraperitoneally towards the pelvis however the distal portions are beyond this fie ld-of-view of the study. PERITONEUM/RETROPERITONEUM: Multifocal gas in the abdomen appears containe d within bowel loops without convincing evidence of pneumoperitoneum. Moderate volume of abdominal as cites is present with mild mesenteric edema. VASCULATURE: Moderate atherosclerotic calcifications are present throughout the abdominal aorta and i ts branches. No evidence of aortic aneurysm. LYMPH NODES: No gross evidence for lymphadenopathy. SOFT TISSUE/ABDOMINAL WALL: Unremarkable MUSCULOSKELETAL: No acute osseous abnormalities. Moderate disc degeneration changes are present throu ghout the thoracolumbar spine. No evidence of acute compression fracture or critical canal stenosis. Relatively heavy calcification with possibly significant stenosis at the origin of the left renal ar shazia IMPRESSION: 1. Limited CT of the abdomen only, with oral but no IV contrast. 2. Moderate sized hiatal hernia, with retained contrast in the esophagus which may have been from re flux or dysmotility. Thickened appearance of the wall within the hernia and proximal stomach as well as apparent rugal fold thickening, does not seem fully explained by nondistention alone. Consider pat hologic thickening. Upper endoscopy could further assess as warranted. 3. No evidence of bowel obstruction or free air. 4. Moderate stool throughout the colon, correlate for constipation. 5. Cirrhotic hepatic morphology. 6. Moderate volume ascites. 7. Bilateral renal nodules favored to be combination of simple and hyperdense/hemorrhagic cysts, how ever an underlying neoplasm cannot be excluded from this study. Recommend additional imaging as clini diandra warranted.
[2023-10-24] MEDS: DIALYSIS (PERIT 1.5%) 2,000 ML 30 G/2,000 ML BAG INTRAPERIT SCH ×5 (00:04→23:44)
[2023-10-24] MEDS: SODIUM CHLORIDE 0.9% 1,000 ML IV SCH ×2 (04:43→16:53)
[2023-10-24] MEDS: PANTOPRAZOLE 40 MG TABLET PO SCH ×2 (06:20→18:19)
[2023-10-24] MEDS: CALCIUM ACETATE 667 MG TAB PO SCH ×3 (06:20→19:01)
[2023-10-24] MEDS: ONDANSETRON 4 MG/2 ML VIAL IVP PRN ×2 (08:27→18:19)
[2023-10-24] MEDS: POTASSIUM CHLORIDE ER 10 MEQ TAB.ER.PRT PO SCH (08:28)
[2023-10-24] MEDS: ERTAPENEM 0.5 GM in SODIUM CHLORIDE 0.9% 50 ML IVPB SCH (08:28)
[2023-10-24] MEDS: HEPARIN SODIUM,PORCINE 5,000 UNIT/ML 1 ML VIAL SQ SCH ×2 (08:28→21:11)
[2023-10-24] MEDS: METOPROLOL SUCCINATE (ER) 50 MG TAB.ER.24H PO SCH (08:28)
[2023-10-24] MEDS: amLODIPine 10 MG TAB PO SCH (08:28)
[2023-10-24] MEDS: CHOLECALCIFEROL 25 MCG (1000 IU) TABLET PO SCH (08:28)
[2023-10-24] MEDS: FAMOTIDINE 20 MG TAB PO SCH (08:28)
[2023-10-24] MEDS: ATORVASTATIN 40 MG TAB PO SCH (08:28)
[2023-10-24] MEDS: FLUoxetine HCL 20 MG CAP PO SCH ×2 (08:28→21:11)
[2023-10-24] MEDS: FOLIC ACID-VIT B COMPLEX-VIT C 1 CAP PO SCH (08:29)
[2023-10-24] MEDS ORDERED: LACTULOSE 20 GM/30 ML CUP PO PRN (08:51)
[2023-10-24] MEDS ORDERED: ASPIRIN 81 MG PO SCH (09:00)
[2023-10-24] MEDS ORDERED: MEGESTROL 40 MG TAB PO SCH (09:00)
[2023-10-24] MEDS ORDERED: CLOPIDOGREL 75 MG TAB PO SCH (09:00)
[2023-10-24 11:07] LABS: HCT 35.8 % (37.2-46.3); HGB 11.4 g/dL (12.0-15.0); MCH 30.6 pg (27.0-32.0); MCHC 31.8 g/dL (32.0-37.0); MCV 96.2 FL (80.0-97.0); NRBC Per 100 WBC 0 X 10*3/uL (0.00-0.01); Platelet Count 385 X 10*3/uL (140-440); RBC 3.72 X 10*6/uL (4.10-5.20); RDW 17.4 % (11.5-14.5); WBC 6.89 X 10*3/uL (4.50-10.00)
[2023-10-24 11:49] LABS: ALT 55 U/L (8-44); AST 92 U/L (13-35); Albumin 2.4 g/dL (3.8-4.9); Albumin/Globulin Ratio 0.96 Ratio (1.60-3.17); Alkaline Phosphatase 96 U/L (41-126); BUN/Creat Ratio 4.12 Ratio (12.00-20.00); Blood Urea Nitrogen 24.3 mg/dL (9.0-27.0); Calcium 9.4 mg/dL (8.7-10.3); Carbon Dioxide 24.1 mmol/L (21.6-31.8); Chloride 102 mmol/L (96-109); Globulin 2.5 g/dL (1.6-3.3); Glucose 94 mg/dL (70-110); Potassium 3.2 mmol/L (3.5-5.5); Sodium 136 mmol/L (135-145); Total Bilirubin 0.3 mg/dL (0.3-1.2); Total Protein 4.9 g/dL (6.2-8.2)
[2023-10-24 11:53] VITALS: BMI 18.1
[2023-10-24] MEDS ORDERED: POTASSIUM CHLORIDE ER 20 MEQ TAB.ER PO STA (12:40)
--- NOTE | 2023-10-24 12:40 | P.PN ---
Subjective Patient is seen for follow-up for end-stage renal disease Overall feeling better Had a good bowel movement. No issues with peritoneal dialysis. Maintained on IV fluids. Objective - Vital Signs Vital signs: Vital Signs Temp 97.6 F 10/24/23 07:28 Pulse 80 10/24/23 07:28 Resp 18 10/24/23 07:28 BP 126/84 10/24/23 07:28 Pulse Ox 100 10/24/23 07:28 FiO2 Intake & Output 10/23/23 10/24/23 10/24/23 18:59 06:59 18:59 Intake Total 1020 Balance 1020 Weight 44.906 kg 44.906 kg Intake: Intake, IV Titration 900 Amount Sodium Chloride 0.9% 1, 900 000 ml @ 75 mls/hr IV . [id number] [facility] Rx#:[id number] Oral 120 Other: Voiding Method Bedside Commode - Exam Patient is awake, comfortable, no acute distress Answers questions appropriately Examination of the heart S1 and S2 Examination of the lungs decreased breath sounds at the bases no crackles or whe ezing is heard Abdomen is soft nontender. Examination of lower extremity shows no edema. - Labs CBC & Chem 7: 10/24/23 05:46 10/24/23 05:46 Labs: Abnormal Lab Results - Last 24 Hours (Table) 10/24/23 10/24/23 Range/Units 05:46 05:46 RBC 3.72 L (4.10-5.20) X 10*6/uL Hgb 11.4 L (12.0-15.0) g/dL Hct 35.8 L (37.2-46.3) % MCHC 31.8 L (32.0-37.0) g/dL RDW 17.4 H (11.5-14.5) % MPV 9.0 L (9.5-12.2) FL Potassium 3.2 L (3.5-5.5) mmol/L Creatinine 5.9 H (0.6-1.5) mg/dL Est GFR (CKD-EPI) 7 L (>=60) BUN/Creatinine Ratio 4.12 L (12.00-20.00) Ratio AST 92 H (13-35) U/L ALT 55 H (8-44) U/L Total Protein 4.9 L (6.2-8.2) g/dL Albumin 2.4 L (3.8-4.9) g/dL Albumin/Globulin Ratio 0.96 L (1.60-3.17) Ratio Assessment and Plan Assessment: 1. End-stage renal disease maintained on peritoneal dialysis 2. Hypokalemia secondary to decreased oral intake and pd 3. Mental status changes most likely secondary to UTI 4. Pyuria rule out UTI Plan: Continue current PD exchanges Replace potassium Continue with antibiotics and IV fluids.
--- NOTE | 2023-10-24 15:03 | P.PN ---
Subjective Progress Note Date: 10/24/23 (delayed chartings seen at 0850) Patient is an 78-year-old female peritoneal dialysis with history of systolic ischemic cardiomyopathy last known ejection fraction 35%, hypertension, dyslipidemia, coronary artery disease status post PCI, and multiple other comorbid conditions who presented to the ER due to increasing weakness, fatigue, and loss of appetite. On arrival to the ER her vital signs were within normal limits. Initial laboratory analysis included CBC, coags, CMP which were remarkable for sodium 131, potassium 3.3, BUN 33, creatinine 6.78, AST 121, ALT 66. Urinalysis was consistent with UTI and she was started on Levaquin. Influenza A/B/RSV/COVID-19 testing was negative. Arrangements were made for admission. Nephrology was consulted. She underwent CT abdomen and pelvis which demonstrated moderate size hiatal hernia with retained contrast in the esophagus from reflux or dysmotility as well as a thickened appearance of the wall within the hernia of the proximal stomach concerning for pathologic thickening, there is moderate stool throughout the colon and bilateral renal nodules. Dietary was consulted. Calorie count was started. Case was discussed with the GI team who will plan on direct visualization early next week and asked her her aspirin and Plavix to be held. Patient seen and examined at bedside. She denies any abdominal discomfort, she still feels constipated but did have a bowel movement yesterday after lactulose. We discussed doing a calorie count and she is in agreement. We discussed findings of CT she is agreement with proceeding with scope. She denies any chest pain or shortness of breath. Vital signs reviewed General: Nontoxic, no distress, appears at stated age, temporal wasting Cardiovascular: S1S2 reg, no murmur, positive posterior tibial pulse bilateral, Lungs: Decreased breath sounds bilateral, no rhonchi, no rales, no accessory muscle use Abdominal: Soft, nontender to palpation, no guarding, no appreciable organomegaly Ext: No gross muscle atrophy, no edema b/l lower extremities, no contractures Neuro: CN II-XI grossly intact, no focal neuro deficits Psych: Alert, oriented, appropriate affect Assessment/Plan: Acute metabolic encephalopathy UTI Generalized weakness and debility Nausea and vomiting Constipation Hepatic steatosis with chronically elevated liver enzymes Severe protein calorie malnutrition with cachexia Hiatal hernia with thicked proximal stomach Renal cysts, bilateral - Case dicusse with GI service will hold ASA and plavix with potentional scope friday NPO after midnight on friday - Consult dietitian and proceed with calorie count - lactulose 20 mg PO as needed for constipation - Normal saline at 75 cc/h -PT/OT -Fall precautions - Ertapenem 500 mg IV piggyback daily based on patient's prior history of ESBL x 2 in the urine, Await urine culture - repeat CMP in AM - case discussed with Dr. Whatley could conisder TPN as last resort - D/W Dr. Bernal appears consistent with metabolic encephalopthy Hypokalemia -Patient has not tolerating IV replacement. Dscontinue IV and replace with 20 mill equivalents p.o. x 1 -Calcitriol 0.25 mcg Friday, Friday, Friday, PhosLo 1134 mg 3 times daily with meals, vitamin D 25 mg daily Peritoneal dialysis - nephrology notre reviewed: conitnue PD replace K+ - Await pertoneal fluid analysis Compensated systolic cardiomyopathy with ejection fraction 35% Hypertension Dyslipidemia Coronary artery disease -Norvasc 10 mg daily, metoprolol 50 mg daily -Hold Aspirin 81 mg daily-Plavix 75 mg daily for EGD -Lipitor 40 mg daily -Hold Bumex due to patient appearing hypovolemic Chronic: Prior GI bleed Cataract disease Diverticular disease Iron deficiency anemia Osteoarthritis History of ESBL Imaging: CT abdomen and pelvis which demonstrated moderate size hiatal hernia with retained contrast in the esophagus from reflux or dysmotility as well as a thickened appearance of the wall within the hernia of the proximal stomach concerning for pathologic thickening, there is moderate stool throughout the c olon and bilateral renal nodules. Data Review: Labs reviewed from today include CBC and CMP which are remarkable for hemoglobin 11.4, potassium 3.2, creatinine 5.9, AST 92, ALT 55 Transition patient to inpatient status as there is currently no safe discharge plan for this patient. She has not had an adequate oral intake to sustain herself at home with probable medical etiology. Discharge at this time would make the patient at increased risk for further worsening of her clinical condition including starvation and possible refeeding syndrome. Patient also has a history of multidrug-resistant urinary tract infection and discharged prior to obtaining cultures would be prohibitive in this patient given she may need outpatient IV antibiotics. DVT prophylaxis: Heparin Anticipated discharge date: Pending clinical course Anticipated discharge place: Pending clinical course This dictation was prepared using [employer] voice recognition software. Though every attempt is made to correct errors during dictation some may still exist. Objective - Vital Signs Vital signs: Vital Signs Temp 97.4 F L 10/24/23 12:42 Pulse 85 10/24/23 12:42 Resp 16 10/24/23 12:42 BP 117/77 10/24/23 12:42 Pulse Ox 99 10/24/23 12:42 FiO2 Intake & Output 10/23/23 10/24/23 10/24/23 18:59 06:59 18:59 Intake Total 1020 Balance 1020 Weight 44.906 kg 44.906 kg Intake: Intake, IV Titration 900 Amount Sodium Chloride 0.9% 1, 900 000 ml @ 75 mls/hr IV . [id number] [facility] Rx#:[id number] Oral 120 Other: Voiding Method Bedside Commode # Voids 1 # Bowel Movements 1 - Labs CBC & Chem 7: 10/24/23 05:46 10/24/23 05:46 Labs: Abnormal Lab Results - Last 24 Hours (Table) 10/24/23 10/24/23 Range/Units 05:46 05:46 RBC 3.72 L (4.10-5.20) X 10*6/uL Hgb 11.4 L (12.0-15.0) g/dL Hct 35.8 L (37.2-46.3) % MCHC 31.8 L (32.0-37.0) g/dL RDW 17.4 H (11.5-14.5) % MPV 9.0 L (9.5-12.2) FL Potassium 3.2 L (3.5-5.5) mmol/L Creatinine 5.9 H (0.6-1.5) mg/dL Est GFR (CKD-EPI) 7 L (>=60) BUN/Creatinine Ratio 4.12 L (12.00-20.00) Ratio AST 92 H (13-35) U/L ALT 55 H (8-44) U/L Total Protein 4.9 L (6.2-8.2) g/dL Albumin 2.4 L (3.8-4.9) g/dL Albumin/Globulin Ratio 0.96 L (1.60-3.17) Ratio Microbiology - Last 24 Hours (Table) 10/24/23 01:11 Gram Stain - Preliminary Peritoneal Fluid
[2023-10-24 16:10] LABS: Appearance,BF Clear (Clear); RBC, Body Fluid 2 /UL (0-2000)
--- NOTE | 2023-10-24 20:09 | P.CNNES ---
History of Present Illness Consult date: 10/24/23 Requesting physician: Teressa Corcoran Reason for Consult: Confusion History of Present Illness: Patient is a 78-year-old female with history of ESRD, on peritoneal dialysis, came to the hospital yesterday at 8:54 AM for altered mental status. Patient's was also present, who provided with a history. Patient has ESRD, on dialysis since 04/07/2023. She gets home dialysis. Patient's mentions that in the last couple months, she has been having vomiting what ever she eats. As a result she has lost weight from 110 down to 90 pounds. Last month she was able to do a lot of walking, able to maintain the checking balance and pay the bills. However lately she has become more foggy particularly in the last 3-4 weeks. She has been very confused in relation to her and children. She has become slightly paranoid, thinking that patient's son and are playing the tricks with her. She believes that the son is her and is the son, and blames it on the , that he is making her confused. Patient believes that she is living in someone else's house. He believes that her confusion gets worse as the day goes on. Patient at times would no details about the past, but then gets confused about her home, and the family as mentioned above. When her tries to correct, she becomes upset. She was asking who was coming for the dinner, although there was no one coming. At times she believes that someone is in the dining room although there is nobody. Vital signs arrival blood pressure 110/70, pulse rate 80, temperature 97.3. Blood test shows normal CBC, PT/PTT, sodium 131 potassium 3.3 BUN 33, creatinine 6.78. AST is 121, ALT 66, both mildly elevated. Ammonia is normal 9. Troponin negative. UA shows large amount of leukocyte esterase, many WBC clumps and many bacteria. Influenza screen, RSV and milligan virus PCR negative. CT head revealed no acute intracranial process. Moderate atrophy and chronic small vessel ischemic change. I personally reviewed CT head, agree with the findings. Chest x-ray is normal, EKG shows sinus rhythm, with left axis deviation. X-ray of the abdomen revealed moderate overall stool burden may reflect constipation. A solitary borderline to mildly dilated small bowel loop in the left mid abdomen measuring up to 3.2 cm. Overall nonobstructive bowel gas pattern. Findings may reflect some mild regional ileus or enteritis. [place] dialysis catheter looped within the mid pelvis. CT of abdomen and pelvis revealed moderate sized hiatal hernia with retained contrast in the esophagus which may have been from reflux or dysmotility. Thickened appearance of the wall within the hernia and proximal stomach as well as apparently true vocal fold thickening, does not seem fully explained by non- distention alone. Consider endoscopy. Cirrhotic Amy hepatic morphology. Moderate volume ascites. Bilateral renal nodules favored to be combination of simple and hyperdense hemorrhagic cysts, however an underlying neoplasm cannot be excluded from this study. Home medications include Lipitor 40 mg, Pepcid, metoprolol, Plavix 75 mg, amlodipine 10 g, aspirin 81 mg, fluoxetine 20 mg twice a day, Wellbutrin XL 150 mg at bedtime, potassium, Protonix, Megace, magnesium, folic acid and B complex, Xanax 0.125 mg twice a day when necessary, Zofran and Bumex. Patient has history of chronic renal disease for last 15 years. Last year in November 2022, patient had acute cardiac event, CHF for which she underwent cardiac catheterization, and subsequently developed renal failure and has been on dialysis since then. Patient has hypertension, denies any diabetes. Patient has smoked 1 pack per day for 25 years, quit 40 years ago. She does drink 2-3 drinks of vodka, about 3-4 days a week. Not every single day. Denies marijuana. Patient has previous history of neck surgery. Patient has depression, for which she takes Prozac 40 mg daily and Wellbutrin XL. She takes Xanax very seldom. Review of Systems Constitutional: Reports weight loss, Denies chills, Denies fever Eyes: denies blurred vision, denies diplopia, denies pain Ears: deny: decreased hearing, ear discharge Ears, nose, mouth and throat: Reports headache (Periodically), Denies sore throat Cardiovascular: Denies chest pain, Denies shortness of breath Respiratory: Reports excessive sputum, Denies cough Gastrointestinal: Reports nausea, Reports vomiting, Denies abdominal pain, Denies diarrhea Genitourinary: Denies dysuria, Denies hematuria, Denies mixed incontinence Musculoskeletal: Reports low back pain, Reports neck pain, Denies myalgias Integumentary: Denies pruritus, Denies rash Neurological: Denies numbness, Denies weakness Psychiatric: Reports anxiety, Reports depression Endocrine: Reports fatigue, Reports weight change Hematologic/Lymphatic: Reports easy bruising Past Medical History Past Medical History: Heart Failure, Eye Disorder, GI Bleed, Hyperlipidemia, Hypertension, Myocardial Infarction ([place]), Musculoskeletal Disorder, Osteoarthritis (OA), Renal Disease Additional Past Medical History / Comment(s): Chronic anemia-iron deficiency, chronic kidney disease stage V, diverticular disease, osteoporosis; cataracts with lens replacement Last Myocardial Infarction Date:: 11/27/22 History of Any Multi-Drug Resistant Organisms: ESBL Date of last positivie culture/infection: 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 Source:: Urine Past Surgical History: Heart Catheterization With Stent, Orthopedic Surgery, Tonsillectomy, Tubal Ligation Additional Past Surgical History / Comment(s): removal ovary, bilateral cataract removal with lens implant, cervical spinal fusion, cervical steroid injection Past Anesthesia/Blood Transfusion Reactions: No Reported Reaction Date of Last Stent Placement:: 11/27/22 Past Psychological History: Anxiety Smoking Status: Former smoker Past Alcohol Use History: Occasional Past Drug Use History: None Reported - Past Family History Mother Family Medical History: Osteoarthritis (OA) Sister(s) Family Medical History: Cancer Additional Family Medical History / Comment(s): breast cancer Father Family Medical History: No Reported History Brother(s) Family Medical History: Osteoarthritis (OA) Daughter(s) Family Medical History: No Reported History Son(s) Family Medical History: No Reported History Medications and Allergies Home Medications Medication Instructions Recorded Confirmed Type Famotidine [Pepcid] 20 mg PO DAILY 02/26/20 10/23/23 History Atorvastatin [Lipitor] 40 mg PO DAILY 01/03/23 10/23/23 History Cholecalciferol [Vitamin D3 (25 25 mcg PO DAILY 01/03/23 10/23/23 History Mcg = 1000 Iu)] Clopidogrel [Plavix] 75 mg PO DAILY 01/03/23 10/23/23 History Metoprolol Succinate [Toprol XL] 50 mg PO DAILY 01/03/23 10/23/23 History calcitrioL [Calcitriol] 0.25 mcg PO MOWEFR 01/03/23 10/23/23 History amLODIPine [Norvasc] 10 mg PO DAILY #30 tab 01/04/23 10/23/23 Rx Aspirin EC [Ecotrin Low Dose] 81 mg PO DAILY 02/13/23 10/23/23 History ALPRAZolam [Xanax] 0.125 mg PO BID PRN 10/23/23 10/23/23 History Bumetanide [BUMEX] 2 mg PO DAILY 10/23/23 10/23/23 History Calcium Acetate [Phoslo] 1,334 mg PO TID-W/MEALS 10/23/23 10/23/23 History FLUoxetine HCL 20 mg PO BID 10/23/23 10/23/23 History Folic Acid/Vit B Complex and C 0.8 mg PO DAILY 10/23/23 10/23/23 History [Nephro-Trang Tablet] Magnesium Oxide [Mag-Ox] 400 mg PO HS 10/23/23 10/23/23 History Megestrol [Megace] 40 mg PO DAILY 10/23/23 10/23/23 History Ondansetron Odt [Zofran Odt] 4 mg PO DAILY 10/23/23 10/23/23 History Ondansetron Odt [Zofran Odt] 4 mg PO Q6H PRN 10/23/23 10/23/23 History Pantoprazole [Protonix] 40 mg PO BID 10/23/23 10/23/23 History Potassium Chloride ER [K-Dur 10] 10 meq PO DAILY 10/23/23 10/23/23 History bisacodyL [Dulcolax] 10 mg PO HS 10/23/23 10/23/23 History buPROPion XL [Wellbutrin XL] 150 mg PO HS 10/23/23 10/23/23 History Allergies Allergy/AdvReac Type Severity Reaction Status Date / Time celecoxib [From Celebrex] Allergy Rash/Hives Verified 10/23/23 12:34 cephalexin [From Keflex] Allergy Unknown Verified 10/23/23 12:34 nitrofurantoin Allergy Rash all Verified 10/23/23 12:34 [From Macrobid] over nitrofurantoin Allergy Rash all Verified 10/23/23 12:34 macrocrystalline over [From Macrobid] sulfamethoxazole Allergy Face Verified 10/23/23 12:34 [From Bactrim] swelling trimethoprim [From Bactrim] Allergy Face Verified 10/23/23 12:34 swelling Physical Examination - Vital Signs Vital Signs: Vital Signs Temp Pulse Pulse Resp BP BP Pulse Ox 10/24/23 07:28 97.6 F 80 18 126/84 100 10/24/23 06:15 97.5 F L 77 17 121/73 98 10/24/23 00:12 97.7 F 77 16 106/53 97 10/23/23 19:45 97.9 F 78 16 102/67 97 10/23/23 19:31 98.2 F 78 16 101/69 97 10/23/23 18:41 80 16 104/61 10/23/23 18:11 98.2 F 80 16 104/61 97 10/23/23 14:23 80 16 111/60 98 10/23/23 11:28 73 16 103/64 98 10/23/23 11:24 73 16 103/64 99 Intake and Output 10/23/23 10/24/23 10/24/23 22:59 06:59 14:59 Intake Total 1020 Balance 1020 Intake: Intake, IV Titration 900 Amount Sodium Chloride 0.9% 1, 900 000 ml @ 75 mls/hr IV . [id number] [facility] Rx#:[id number] Oral 120 Other: Voiding Method Bedside Commode Weight 44.906 kg Patient is an elderly female, in no acute distress. Patient is alert awake. Patient states it's is either November or December 2022. She believes the [facility] weekend just past. She knows it is winter season. She knows that she is in the hospital, and the name of the hospital starts with letter "A". She knows that she is in [place] in [place] and name of the [facility] president Mr. Mejia. Speech and language functions are normal. Patient can name and repeat very well. No aphasia or dysarthria. Attention, concentration and fund of knowledge is slightly limited. On cranial nerve examination, pupils are equal, round and reacting to light, visual alas are full on confrontation, with no neglect on double simultaneous stimulation. Extraocular muscles are intact with no nystagmus. Face is symmetric, tongue protrudes to the midline. Palatal elevation and sensation normal, hearing and shoulder shrug normal, facial sensation normal. On muscle strength testing, there is no pronator drift and the strength is normal in arms and legs distally and proximally. Deep tendon reflexes are symmetric, 2 at the biceps, 1+ brachioradialis, 1+ at the knees, 1 ankles and plantars downgoing bilaterally. Sensory to touch is equal with no neglect on double simultaneous stimulation. Cerebellar function showed no ataxia for [id number] testing. No dy sdiadochokinesia. No ataxia for lfai-me-dptr testing on either side. Tone and bulk of muscles normal. Gait deferred.. On general examination, there is no carotid bruit or murmur, S1-S2 audible. C hest is clear on consultation. Abdomen is soft nontender. No organomegaly, bowel sounds present. Peripheral pulses are present. No peripheral edema. Results - Laboratory Findings CBC and BMP: 10/24/23 05:46 10/24/23 05:46 Abnormal Lab Findings: Abnormal Labs 10/23/23 10/23/23 10/23/23 09:45 09:45 09:45 RBC Hgb Hct MCHC RDW 16.0 H MPV Lymphocytes # 0.9 L PT 9.9 L Sodium Potassium Chloride BUN Creatinine Glucose Magnesium AST ALT Alkaline Phosphatase Total Protein Albumin Urine Appearance Turbid H Urine Protein 1+ H Urine Blood Small H Urine Bilirubin 1+ H Ur Leukocyte Esterase Large H Urine RBC 9 H Urine WBC >182 H Urine WBC Clumps Many H Urine Bacteria Many H Hyaline Casts 10 H Urine Mucus Moderate H 10/23/23 10/24/23 09:45 05:46 RBC 3.72 L Hgb 11.4 L Hct 35.8 L MCHC 31.8 L RDW 17.4 H MPV 9.0 L Lymphocytes # PT Sodium 131 L Potassium 3.3 L Chloride 94 L BUN 33 H Creatinine 6.78 H Glucose 123 H Magnesium 3.1 H AST 121 H ALT 66 H Alkaline Phosphatase 135 H Total Protein 5.9 L Albumin 2.6 L Urine Appearance Urine Protein Urine Blood Urine Bilirubin Ur Leukocyte Esterase Urine RBC Urine WBC Urine WBC Clumps Urine Bacteria Hyaline Casts Urine Mucus Assessment and Plan Assessment: * Altered mental status, likely due to acute delirium. Reasons multifactorial as mentioned below. * ESRD, maintained on peritoneal dialysis * Probable UTI * Hyponatremia * Hypokalemia * Abnormal liver functions, slightly improving * CT abdomen revealed "cirrhotic hepatic morphology", with moderate volume ascites. * History of folate deficiency * X tobacco use Plan: * Patient being treated for acute UTI with ertapenem. Urine cultures pending. * Patient being maintained on peritoneal dialysis. Nephrology on board. * CT abdomen and pelvis revealed Cirrhotic hepatic morphology, and moderate volume ascites. We will defer IM to address possible cirrhosis. Ammonia is <9. * B12 845, folate 5.20, TSH 8.29. IM to address hypothyroidism. Continue folate replacement and multivitamins. * Patient undergoing upper endoscopy in the morning. * Patient has lost a lot of weight. Patient used to be on Prozac 20 mg twice a day, which may be relatively high for her age due to weight loss. We will decrease Prozac down to 20mg daily. Patient does not feel significantly depressed. * Resume Plavix when medically cleared. * Neurology will follow. Thank you for the consult. Time with Patient: Greater than 30
[2023-10-24] MEDS: MAGNESIUM OXIDE 400 MG TAB PO SCH (21:11)
[2023-10-24] MEDS: buPROPion XL 150 MG TAB.ER.24H PO SCH (22:09)
[2023-10-25 05:27] LABS: Anisocytosis Slight; HCT 34.3 % (34.0-46.0); HGB 11.1 gm/dL (11.4-16.0); MCH 31.3 pg (25.0-35.0); MCHC 32.4 g/dL (31.0-37.0); MCV 96.4 fL (80.0-100.0); Macrocytosis Slight; Mean Platelet Volume 7.3; Platelet Count 331 k/uL (150-450); RBC 3.56 m/uL (3.80-5.40); RDW 16.6 % (11.5-15.5); WBC 5.4 k/uL (3.8-10.6)
[2023-10-25] MEDS: DIALYSIS (PERIT 1.5%) 2,000 ML 30 G/2,000 ML BAG INTRAPERIT SCH ×3 (05:41→16:48)
[2023-10-25 05:42] LABS: ALT 46 U/L (4-34); AST 86 U/L (14-36); African American GFR (CKD) 9 (>60 ml/min/1.73 sqM); Albumin/Globulin Ratio 0.7; Alkaline Phosphatase 97 U/L (38-126); Anion Gap 5 mmol/L; Blood Urea Nitrogen 20 mg/dL (7-17); Calcium 9.5 mg/dL (8.4-10.2); Carbon Dioxide 26 mmol/L (22-30); Chloride 101 mmol/L (98-107); Globulin 2.7 g/dL; Glucose 80 mg/dL (74-99); Non-African American GFR(CKD) 8 (>60 ml/min/1.73 sqM); Potassium 3.3 mmol/L (3.5-5.1); Sodium 132 mmol/L (137-145); Total Bilirubin 0.2 mg/dL (0.2-1.3); Total Protein 4.7 g/dL (6.3-8.2)
[2023-10-25] MEDS: SODIUM CHLORIDE 0.9% 1,000 ML IV SCH ×2 (05:42→20:17)
[2023-10-25] MEDS: PANTOPRAZOLE 40 MG TABLET PO SCH ×2 (06:18→17:33)
[2023-10-25] MEDS: CALCIUM ACETATE 667 MG TAB PO SCH ×3 (06:18→17:33)
[2023-10-25] MEDS ORDERED: POTASSIUM CHLORIDE ER 20 MEQ TAB.ER PO STA (08:44)
[2023-10-25] MEDS ORDERED: LEVOFLOXACIN 500MG-D5W PMX 500 MG in DEXTROSE/WATER 1 100ML.BAG IVPB SCH (09:00)
[2023-10-25] MEDS: ERTAPENEM 0.5 GM in SODIUM CHLORIDE 0.9% 50 ML IVPB SCH (09:04)
[2023-10-25] MEDS: CHOLECALCIFEROL 25 MCG (1000 IU) TABLET PO SCH (09:05)
[2023-10-25] MEDS: ATORVASTATIN 40 MG TAB PO SCH (09:05)
[2023-10-25] MEDS: FOLIC ACID-VIT B COMPLEX-VIT C 1 CAP PO SCH (09:05)
[2023-10-25] MEDS: FAMOTIDINE 20 MG TAB PO SCH (09:05)
[2023-10-25] MEDS: METOPROLOL SUCCINATE (ER) 50 MG TAB.ER.24H PO SCH (09:05)
[2023-10-25] MEDS: HEPARIN SODIUM,PORCINE 5,000 UNIT/ML 1 ML VIAL SQ SCH ×2 (09:05→20:16)
[2023-10-25] MEDS: amLODIPine 10 MG TAB PO SCH (09:05)
[2023-10-25] MEDS: POTASSIUM CHLORIDE ER 10 MEQ TAB.ER.PRT PO SCH (09:05)
[2023-10-25] MEDS: ONDANSETRON 4 MG/2 ML VIAL IVP PRN (09:15)
--- NOTE | 2023-10-25 10:47 | P.PN ---
Subjective Patient is seen for follow-up for end-stage renal disease Had a good bowel movement. No issues with peritoneal dialysis. Maintained on IV fluids. Trying to increase oral intake. Objective - Vital Signs Vital signs: Vital Signs Temp 97.8 F 10/25/23 07:30 Pulse 80 10/25/23 07:30 Resp 17 10/25/23 07:30 BP 114/65 10/25/23 07:30 Pulse Ox 98 10/25/23 07:30 FiO2 Intake & Output 10/24/23 10/25/23 10/25/23 18:59 06:59 18:59 Intake Total 1020 900 Balance 1020 900 Weight 44.906 kg Intake: Intake, IV Titration 900 900 Amount Sodium Chloride 0.9% 1, 900 900 000 ml @ 75 mls/hr IV . [id number] [facility] Rx#:[id number] Oral 120 Other: # Voids 1 0 # Bowel Movements 1 - Exam Patient is awake, comfortable, no acute distress Answers questions appropriately Examination of the heart S1 and S2 Examination of the lungs decreased breath sounds at the bases no crackles or wheezing is heard Abdomen is soft nontender. Examination of lower extremity shows no edema. - Labs CBC & Chem 7: 10/25/23 03:43 10/25/23 03:43 Labs: Abnormal Lab Results - Last 24 Hours (Table) 10/24/23 10/24/23 10/25/23 Range/Units 05:46 05:46 03:43 RBC 3.72 L 3.56 L (4.10-5.20) X 10*6/uL Hgb 11.4 L 11.1 L (12.0-15.0) g/dL Hct 35.8 L (37.2-46.3) % MCHC 31.8 L (32.0-37.0) g/dL RDW 17.4 H 16.6 H (11.5-14.5) % MPV 9.0 L (9.5-12.2) FL Sodium (137-145) mmol/L Potassium 3.2 L (3.5-5.5) mmol/L BUN (7-17) mg/dL Creatinine 5.9 H (0.6-1.5) mg/dL Est GFR (CKD-EPI) 7 L (>=60) BUN/Creatinine Ratio 4.12 L (12.00-20.00) Ratio AST 92 H (13-35) U/L ALT 55 H (8-44) U/L Total Protein 4.9 L (6.2-8.2) g/dL Albumin 2.4 L (3.8-4.9) g/dL Albumin/Globulin Ratio 0.96 L (1.60-3.17) Ratio 10/25/23 Range/Units 03:43 RBC (4.10-5.20) X 10*6/uL Hgb (12.0-15.0) g/dL Hct (37.2-46.3) % MCHC (32.0-37.0) g/dL RDW (11.5-14.5) % MPV (9.5-12.2) FL Sodium 132 L (137-145) mmol/L Potassium 3.3 L (3.5-5.5) mmol/L BUN 20 H (7-17) mg/dL Creatinine 4.71 H (0.6-1.5) mg/dL Est GFR (CKD-EPI) (>=60) BUN/Creatinine Ratio (12.00-20.00) Ratio AST 86 H (13-35) U/L ALT 46 H (8-44) U/L Total Protein 4.7 L (6.2-8.2) g/dL Albumin 2.0 L (3.8-4.9) g/dL Albumin/Globulin Ratio (1.60-3.17) Ratio Microbiology - Last 24 Hours (Table) 10/24/23 01:11 Gram Stain - Preliminary Peritoneal Fluid Assessment and Plan Assessment: 1. End-stage renal disease maintained on peritoneal dialysis 2. Hypokalemia secondary to decreased oral intake and pd 3. Mental status changes most likely secondary to UTI 4. Pyuria rule out UTI 5. Protein calorie malnutrition 6. Constipations, slowly improving Plan: Continue current PD exchanges. No UF noted with current exchanges Continue to encourage increased oral intake Continue with antibiotics and IV fluids.
--- NOTE | 2023-10-25 12:08 | P.PN ---
Subjective Progress Note Date: 10/25/23 Patient is an 78-year-old female peritoneal dialysis with history of systolic ischemic cardiomyopathy last known ejection fraction 35%, hypertension, dyslipidemia, coronary artery disease status post PCI, and multiple other comorbid conditions who presented to the ER due to increasing weakness, fatigue, and loss of appetite. On arrival to the ER her vital signs were within normal limits. Initial laboratory analysis included CBC, coags, CMP which were remarkable for sodium 131, potassium 3.3, BUN 33, creatinine 6.78, AST 121, ALT 66. Urinalysis was consistent with UTI and she was started on Levaquin. Influenza A/B/RSV/COVID-19 testing was negative. Arrangements were made for admission. Nephrology was consulted. She underwent CT abdomen and pelvis which demonstrated moderate size hiatal hernia with retained contrast in the esophagus from reflux or dysmotility as well as a thickened appearance of the wall within the hernia of the proximal stomach concerning for pathologic thickening, there is moderate stool throughout the colon and bilateral renal nodules. Dietary was consulted. Calorie count was started. GI team planning for direct visualization early next week and asked her her aspirin and Plavix to be held. Patient seen and examined at bedside. She denies any abdominal discomfort. Most of her nausea is after eating, patient feels discouraged from eating due to persistent nausea. Denies any other complaints at the moment. Vital signs reviewed General: Nontoxic, no distress, appears at stated age, temporal wasting Cardiovascular: S1S2 reg, no murmur, positive posterior tibial pulse bilateral, Lungs: Decreased breath sounds bilateral, no rhonchi, no rales, no accessory muscle use Abdominal: Soft, nontender to palpation, no guarding, no appreciable organ omegaly Ext: No gross muscle atrophy, no edema b/l lower extremities, no contractures Neuro: CN II-XI grossly intact, no focal neuro deficits Psych: Alert, oriented, appropriate affect Assessment/Plan: Acute metabolic encephalopathy UTI Generalized weakness and debility Nausea and vomiting Constipation Hepatic steatosis with chronically elevated liver enzymes Severe protein calorie malnutrition with cachexia Hiatal hernia with thicked proximal stomach Renal cysts, bilateral -GI planning on EGD on Friday, will hold ASA and plavix -Patient does not want to proceed with any enteral feeds, or TPN - Consult dietitian and proceed with calorie count - lactulose 20 mg PO as needed for constipation - Normal saline at 75 cc/h -PT/OT -Fall precautions - Ertapenem 500 mg IV piggyback daily based on patient's prior history of ESBL x 2 in the urine, Await urine culture - repeat CMP in AM Hypokalemia -20 mEq oral potassium given to -Calcitriol 0.25 mcg Friday, Friday, Friday, PhosLo 1134 mg 3 times daily with meals, vitamin D 25 mg daily Peritoneal dialysis - nephrology notre reviewed: conitnue PD Compensated systolic cardiomyopathy with ejection fraction 35% Hypertension Dyslipidemia Coronary artery disease -Norvasc 10 mg daily, metoprolol 50 mg daily -Hold Aspirin 81 mg daily-Plavix 75 mg daily for EGD -Lipitor 40 mg daily -Hold Bumex due to patient appearing hypovolemic Chronic: Prior GI bleed Cataract disease Diverticular disease Iron deficiency anemia Osteoarthritis History of ESBL Imaging: CT abdomen and pelvis which demonstrated moderate size hiatal hernia with ret ained contrast in the esophagus from reflux or dysmotility as well as a thickened appearance of the wall within the hernia of the proximal stomach concerning for pathologic thickening, there is moderate stool throughout the colon and bilateral renal nodules. Data Review: Hemoglobin 11.1, potassium 3.3, creatinine 4.71 DVT prophylaxis: Heparin Anticipated discharge date: Pending clinical course Anticipated discharge place: Pending clinical course Objective - Vital Signs Vital signs: Vital Signs Temp 98.0 F 10/25/23 11:18 Pulse 86 10/25/23 11:18 Resp 16 10/25/23 11:18 BP 105/72 10/25/23 11:18 Pulse Ox 97 10/25/23 11:18 FiO2 Intake & Output 10/24/23 10/25/23 10/25/23 18:59 06:59 18:59 Intake Total 1020 900 Balance 1020 900 Weight 44.906 kg Intake: Intake, IV Titration 900 900 Amount Sodium Chloride 0.9% 1, 900 900 000 ml @ 75 mls/hr IV . [id number] [facility] Rx#:[id number] Oral 120 Other: # Voids 1 0 # Bowel Movements 1 - Labs CBC & Chem 7: 10/25/23 03:43 10/25/23 03:43 Labs: Abnormal Lab Results - Last 24 Hours (Table) 10/25/23 10/25/23 Range/Units 03:43 03:43 RBC 3.56 L (3.80-5.40) m/uL Hgb 11.1 L (11.4-16.0) gm/dL RDW 16.6 H (11.5-15.5) % Sodium 132 L (137-145) mmol/L Potassium 3.3 L (3.5-5.1) mmol/L BUN 20 H (7-17) mg/dL Creatinine 4.71 H (0.52-1.04) mg/dL AST 86 H (14-36) U/L ALT 46 H (4-34) U/L Total Protein 4.7 L (6.3-8.2) g/dL Albumin 2.0 L (3.5-5.0) g/dL Microbiology - Last 24 Hours (Table) 10/24/23 01:11 Gram Stain - Preliminary Peritoneal Fluid
--- NOTE | 2023-10-25 15:01 | P.PN ---
Subjective Progress Note Date: 10/25/23 Patient was seen for a follow-up. Patient's believes that her confusion is better, although the nurse believes that she is still slightly confused, was mixing up the nurse with a volunteer. She did not recognize the nurse although she has been present for some time. Patient did vomit today. No history of alcoholism. Patient is undergoing upper GI endoscopy on Friday. Objective - Vital Signs Vital signs: Vital Signs Temp 97.8 F 10/25/23 07:30 Pulse 80 10/25/23 07:30 Resp 17 10/25/23 07:30 BP 114/65 10/25/23 07:30 Pulse Ox 98 10/25/23 07:30 FiO2 Intake & Output 10/24/23 10/25/23 10/25/23 18:59 06:59 18:59 Intake Total 1020 900 Balance 1020 900 Weight 44.906 kg Intake: Intake, IV Titration 900 900 Amount Sodium Chloride 0.9% 1, 900 900 000 ml @ 75 mls/hr IV . [id number] [facility] Rx#:[id number] Oral 120 Other: # Voids 1 0 # Bowel Movements 1 - Exam Patient is alert and awake in no distress. Patient continues to be confused, believes it is June or July and the year is 2022. She believes that the had just passed. Speech and language functions are normal. Other examination normal. - Labs CBC & Chem 7: 10/25/23 03:43 10/25/23 03:43 Labs: Abnormal Lab Results - Last 24 Hours (Table) 10/24/23 10/25/23 10/25/23 Range/Units 05:46 03:43 03:43 RBC 3.56 L (3.80-5.40) m/uL Hgb 11.1 L (11.4-16.0) gm/dL RDW 16.6 H (11.5-15.5) % Sodium 132 L (137-145) mmol/L Potassium 3.2 L 3.3 L (3.5-5.5) mmol/L BUN 20 H (7-17) mg/dL Creatinine 5.9 H 4.71 H (0.6-1.5) mg/dL Est GFR (CKD-EPI) 7 L (>=60) BUN/Creatinine Ratio 4.12 L (12.00-20.00) Ratio AST 92 H 86 H (13-35) U/L ALT 55 H 46 H (8-44) U/L Total Protein 4.9 L 4.7 L (6.2-8.2) g/dL Albumin 2.4 L 2.0 L (3.8-4.9) g/dL Albumin/Globulin Ratio 0.96 L (1.60-3.17) Ratio Microbiology - Last 24 Hours (Table) 10/24/23 01:11 Gram Stain - Preliminary Peritoneal Fluid Assessment and Plan Assessment: * Altered mental status, likely due to acute delirium/metabolic encephalopathy. Reasons multifactorial as mentioned below. * ESRD, maintained on peritoneal dialysis * Probable UTI * Recurrent nausea vomiting, generalized weakness and debility * Hyponatremia * Hypokalemia * Abnormal liver functions, slightly improving * CT abdomen revealed "cirrhotic hepatic morphology", with moderate volume ascites. * Hiatal hernia with thickened proximal stomach * Bilateral renal nodules, cyst versus mass. IM to address. * History of folate deficiency * X tobacco use Plan: * Patient being treated for acute UTI with ertapenem. Urine has grown > 100,000 gram-negative bacilli. * Patient being maintained on peritoneal dialysis. Nephrology on board. * CT abdomen and pelvis revealed Cirrhotic hepatic morphology, and moderate volume ascites. We will defer IM to address possible cirrhosis. Ammonia is <9. * B12 845, folate 5.20, TSH 8.29. IM to address hypothyroidism. Continue folate replacement and multivitamins. * Patient undergoing upper endoscopy on Friday. * Patient has lost a lot of weight. Patient used to be on Prozac 20 mg twice a day, which may be relatively high for her age due to weight loss. We will decrease Prozac down to 20mg daily. Patient does not feel significantly depressed. * Resume Plavix when medically cleared. * Check EEG. * Neurological examination is nonfocal. Her fluctuating mental status is likely due to metabolic encephalopathy. No indication for MRI at this time. * Discussed with patient's in detail.
[2023-10-25] MEDS: buPROPion XL 150 MG TAB.ER.24H PO SCH (20:16)
[2023-10-25] MEDS: MAGNESIUM OXIDE 400 MG TAB PO SCH (20:16)
[2023-10-25] MEDS: FLUoxetine HCL 20 MG CAP PO SCH (20:16)
[2023-10-26] MEDS: DIALYSIS (PERIT 1.5%) 2,000 ML 30 G/2,000 ML BAG INTRAPERIT SCH ×4 (00:22→17:47)
[2023-10-26] MEDS: CALCIUM ACETATE 667 MG TAB PO SCH ×3 (06:48→17:48)
[2023-10-26] MEDS: PANTOPRAZOLE 40 MG TABLET PO SCH ×2 (06:52→17:48)
[2023-10-26 08:06] LABS: African American GFR (CKD) 12 (>60 ml/min/1.73 sqM); Anion Gap 2 mmol/L; Blood Urea Nitrogen 17 mg/dL (7-17); Calcium 9.6 mg/dL (8.4-10.2); Carbon Dioxide 28 mmol/L (22-30); Chloride 103 mmol/L (98-107); Glucose 94 mg/dL (74-99); Non-African American GFR(CKD) 11 (>60 ml/min/1.73 sqM); Potassium 3.3 mmol/L (3.5-5.1); Sodium 133 mmol/L (137-145)
[2023-10-26] MEDS ORDERED: POTASSIUM CHLORIDE ER 20 MEQ TAB.ER PO STA (08:27)
[2023-10-26] MEDS: FAMOTIDINE 20 MG TAB PO SCH (09:09)
[2023-10-26] MEDS: CHOLECALCIFEROL 25 MCG (1000 IU) TABLET PO SCH (09:09)
[2023-10-26] MEDS: METOPROLOL SUCCINATE (ER) 50 MG TAB.ER.24H PO SCH (09:09)
[2023-10-26] MEDS: ATORVASTATIN 40 MG TAB PO SCH (09:09)
[2023-10-26] MEDS: POTASSIUM CHLORIDE ER 10 MEQ TAB.ER.PRT PO SCH (09:09)
[2023-10-26] MEDS: amLODIPine 10 MG TAB PO SCH (09:09)
[2023-10-26] MEDS: FOLIC ACID-VIT B COMPLEX-VIT C 1 CAP PO SCH (09:09)
[2023-10-26] MEDS: HEPARIN SODIUM,PORCINE 5,000 UNIT/ML 1 ML VIAL SQ SCH ×2 (09:09→20:36)
[2023-10-26] MEDS: ERTAPENEM 0.5 GM in SODIUM CHLORIDE 0.9% 50 ML IVPB SCH (09:55)
[2023-10-26] MEDS: SODIUM CHLORIDE 0.9% 1,000 ML IV SCH (09:55)
--- NOTE | 2023-10-26 12:24 | P.PN ---
Subjective Progress Note Date: 10/26/23 Patient is an 78-year-old female peritoneal dialysis with history of systolic ischemic cardiomyopathy last known ejection fraction 35%, hypertension, dyslipidemia, coronary artery disease status post PCI, and multiple other comorbid conditions who presented to the ER due to increasing weakness, fatigue, and loss of appetite. On arrival to the ER her vital signs were within normal limits. Initial laboratory analysis included CBC, coags, CMP which were remarkable for sodium 131, potassium 3.3, BUN 33, creatinine 6.78, AST 121, ALT 66. Urinalysis was consistent with UTI and she was started on Levaquin. Influenza A/B/RSV/COVID-19 testing was negative. Arrangements were made for admission. Nephrology was consulted. She underwent CT abdomen and pelvis which demonstrated moderate size hiatal hernia with retained contrast in the esophagus from reflux or dysmotility as well as a thickened appearance of the wall within the hernia of the proximal stomach concerning for pathologic thickening, there is moderate stool throughout the colon and bilateral renal nodules. Dietary was consulted. Calorie count was started. GI team planning for direct visualization early next week and asked her her aspirin and Plavix to be held. Patient seen and examined at bedside. She denies any abdominal discomfort. She was able to eat most of her food yesterday. Denies any new complaints. Vital signs reviewed General: Nontoxic, no distress, appears at stated age, temporal wasting Cardiovascular: S1S2 reg, no murmur, positive posterior tibial pulse bilateral, Lungs: Decreased breath sounds bilateral, no rhonchi, no rales, no accessory muscle use Abdominal: Soft, nontender to palpation, no guarding, no appreciable organomegaly Ext: No gross muscle atrophy, no edema b/l lower extremities, no contractures Neuro: CN II-XI grossly intact, no focal neuro deficits Psych: Alert, oriented, appropriate affect Assessment/Plan: Acute metabolic encephalopathy, resolving UTI Generalized weakness and debility Nausea and vomiting Constipation Hepatic steatosis with chronically elevated liver enzymes Severe protein calorie malnutrition with cachexia Hiatal hernia with thicked proximal stomach Renal cysts, bilateral -GI planning on EGD on Friday, will hold ASA and plavix -Patient does not want to proceed with any enteral feeds, or TPN - Consult dietitian and proceed with calorie count - lactulose 20 mg PO as needed for constipation - Normal saline at 75 cc/h -PT/OT -Fall precautions - Ertapenem 500 mg IV piggyback daily based on patient's prior history of ESBL x 2 in the urine, urine positive for gram-negative bacilli Hypokalemia -20 mEq oral potassium given today -Calcitriol 0.25 mcg Friday, Friday, Friday, PhosLo 1134 mg 3 times daily with meals, vitamin D 25 mg daily -Repeat BMP and magnesium tomorrow Peritoneal dialysis - nephrology following, conitnue PD Compensated systolic cardiomyopathy with ejection fraction 35% Hypertension Dyslipidemia Coronary artery disease -Norvasc 10 mg daily, metoprolol 50 mg daily -Hold Aspirin 81 mg daily-Plavix 75 mg daily for EGD -Lipitor 40 mg daily -Hold Bumex due to patient appearing hypovolemic Chronic: Prior GI bleed Cataract disease Diverticular disease Iron deficiency anemia Osteoarthritis History of ESBL Imaging: CT abdomen and pelvis which demonstrated moderate size hiatal hernia with retained contrast in the esophagus from reflux or dysmotility as well as a thickened appearance of the wall within the hernia of the proximal stomach concerning for pathologic thickening, there is moderate stool throughout the colon and bilateral renal nodules. Data Review: Sodium 133, potassium 2.3, magnesium 2.6 DVT prophylaxis: Heparin Anticipated discharge date: Pending clinical course Anticipated discharge place: Pending clinical course Objective - Vital Signs Vital signs: Vital Signs Temp 97.5 F L 10/26/23 07:02 Pulse 81 10/26/23 07:02 Resp 17 10/26/23 07:02 BP 121/72 10/26/23 07:02 Pulse Ox 97 10/26/23 07:02 FiO2 Intake & Output 10/25/23 10/26/23 10/26/23 18:59 06:59 18:59 Other: # Voids 4 2 # Bowel Movements 1 - Labs CBC & Chem 7: 10/25/23 03:43 10/26/23 06:41 Labs: Abnormal Lab Results - Last 24 Hours (Table) 10/26/23 10/26/23 Range/Units 06:41 06:41 Sodium 133 L (137-145) mmol/L Potassium 3.3 L (3.5-5.1) mmol/L Creatinine 3.79 H (0.52-1.04) mg/dL Magnesium 2.6 H (1.6-2.3) mg/dL Microbiology - Last 24 Hours (Table) 10/23/23 17:26 Urine Culture - Preliminary Urine,Catheterized Gram Neg Bacilli 10/24/23 01:11 Gram Stain - Preliminary Peritoneal Fluid Body Fluid Culture - Preliminary
[2023-10-26] MEDS: FLUoxetine HCL 20 MG CAP PO SCH (20:36)
[2023-10-26] MEDS: buPROPion XL 150 MG TAB.ER.24H PO SCH (20:36)
[2023-10-26] MEDS: MAGNESIUM OXIDE 400 MG TAB PO SCH (20:36)
[2023-10-27] MEDS: DIALYSIS (PERIT 1.5%) 2,000 ML 30 G/2,000 ML BAG INTRAPERIT SCH ×4 (00:30→21:40)
[2023-10-27] MEDS: SODIUM CHLORIDE 0.9% 1,000 ML IV SCH ×2 (00:30→12:12)
[2023-10-27 06:34] LABS: African American GFR (CKD) 15 (>60 ml/min/1.73 sqM); Anion Gap 0 mmol/L; Blood Urea Nitrogen 15 mg/dL (7-17); Calcium 9.5 mg/dL (8.4-10.2); Carbon Dioxide 27 mmol/L (22-30); Chloride 106 mmol/L (98-107); Glucose 84 mg/dL (74-99); Magnesium 2.4 mg/dL (1.6-2.3); Non-African American GFR(CKD) 13 (>60 ml/min/1.73 sqM); Phosphorus 2.2 mg/dL (2.5-4.5); Potassium 3.3 mmol/L (3.5-5.1); Sodium 133 mmol/L (137-145)
[2023-10-27] MEDS ORDERED: POTASSIUM CHLORIDE ER 20 MEQ TAB.ER PO STA (08:04)
[2023-10-27 09:18] LABS: Nucleated Cells, Body Fluid 2 /UL
[2023-10-27] MEDS: CALCIUM ACETATE 667 MG TAB PO SCH ×2 (09:41→12:11)
[2023-10-27] MEDS: PANTOPRAZOLE 40 MG TABLET PO SCH ×2 (09:41→18:43)
[2023-10-27] MEDS: HEPARIN SODIUM,PORCINE 5,000 UNIT/ML 1 ML VIAL SQ SCH ×2 (09:42→21:09)
[2023-10-27] MEDS: ERTAPENEM 0.5 GM in SODIUM CHLORIDE 0.9% 50 ML IVPB SCH (09:44)
[2023-10-27] MEDS: POTASSIUM CHLORIDE ER 10 MEQ TAB.ER.PRT PO SCH (09:45)
[2023-10-27] MEDS: ATORVASTATIN 40 MG TAB PO SCH (09:45)
[2023-10-27] MEDS: METOPROLOL SUCCINATE (ER) 50 MG TAB.ER.24H PO SCH (09:45)
[2023-10-27] MEDS: CHOLECALCIFEROL 25 MCG (1000 IU) TABLET PO SCH (09:45)
[2023-10-27] MEDS: amLODIPine 10 MG TAB PO SCH (09:45)
[2023-10-27] MEDS: FOLIC ACID-VIT B COMPLEX-VIT C 1 CAP PO SCH (09:46)
[2023-10-27] MEDS: FAMOTIDINE 20 MG TAB PO SCH (09:46)
--- NOTE | 2023-10-27 10:45 | P.CONS ---
History of Present Illness - Reason for Consult Consult date: 10/27/23 Nausea And vomiting, scope? Requesting physician: Teressa Corcoran - Chief Complaint weakness - History of Present Illness This a pleasant 78-year-old female who presented to the emergency department for generalized weakness, altered mental status changes, and nausea and vomiting. Past medical history includes end-stage renal disease on peritoneal dialysis, history of systolic ischemic cardiomyopathy, hypertension, dyslipidemia, coronary artery disease status post PCI in multiple other comorbidities. Patient states that she's had a decreased appetite and weight loss over the last several months. She states that she will get nauseated and gagging when she eats. She has no difficulty with keeping liquids in. States she is eating. Little. She was admitted to the hospital for generalized weakness, hypokalemia, urinary tract infection and altered mental status changes. She had a CT of the abdomen that reported a moderate sized hiatal hernia with retained contrast in the esophagus and thickened appearance of the wall within the hernia and proximal stomach. Gastroenterology was consulted for nausea and vomiting and possible endoscopic evaluation. She does have a history of previous GI bleed and underwent an EGD on 02/27/[address] Handley with findings of nonbleeding antral ulcer, mild antral gastritis and a patent distal esophageal Schatzki's ring. She also underwent a colonoscopy during that same hospitalization on 02/29/2020 with findings of a normal colon, moderate left colonic diverticulosis and low-grade internal hemorrhoids. She denies any abdominal pain, no epigastric pain, no chest pain, shortness of breath. She was also noted to have moderate amount of stool on CT and abdominal x-ray. Also noted was a cirrhotic liver with moderate ascites. Patient does admit to drinking 2-3 vodka drinks 3-4 days a week for many years. No known history of cirrhosis of the liver. Review of Systems REVIEW OF SYSTEMS: CARDIOPULMONARY: No chest pain, shortness of breath. Gastrointestinal: No abdominal pain. Nausea and vomiting. Patient often gags when she eats that she has been eating very little. Has weight loss 10-20 pounds over the last several months. No hematemesis, coffee-ground emesis. No rectal bleeding, or melena. GENITOURINARY: No dysuria or hematuria. MUSCULOSKELETAL: Reports normal range of motion. SKIN: No rashes. No jaundice. ENDOCRINE: No chills, fevers. Weight loss. No polydipsia or polyuria. PSYCHIATRIC: Unremarkable. NEUROLOGY: Altered mental status changes, reported hallucinations. Denies dizziness, headache. ENT: Vision unremarkable. CONSTITUTIONAL: Weight loss over last several months. No fever, chills, night sweats. Past Medical History Past Medical History: Heart Failure, Eye Disorder, GI Bleed, Hyperlipidemia, Hypertension, Myocardial Infarction ([place]), Musculoskeletal Disorder, Osteoarthritis (OA), Renal Disease Additional Past Medical History / Comment(s): Chronic anemia-iron deficiency, chronic kidney disease stage V, diverticular disease, osteoporosis; cataracts with lens replacement Last Myocardial Infarction Date:: 11/27/22 History of Any Multi-Drug Resistant Organisms: ESBL Year Discovered:: 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 Source:: Urine Past Surgical History: Heart Catheterization With Stent, Orthopedic Surgery, Tonsillectomy, Tubal Ligation Additional Past Surgical History / Comment(s): removal ovary, bilateral cataract removal with lens implant, cervical spinal fusion, cervical steroid injection Past Anesthesia/Blood Transfusion Reactions: No Reported Reaction Date of Last Stent Placement:: 11/27/22 Past Psychological History: Anxiety Smoking Status: Former smoker Past Alcohol Use History: Occasional Past Drug Use History: None Reported - Past Family History Mother Family Medical History: Osteoarthritis (OA) Sister(s) Family Medical History: Cancer Additional Family Medical History / Comment(s): breast cancer Father Family Medical History: No Reported History Brother(s) Family Medical History: Osteoarthritis (OA) Daughter(s) Family Medical History: No Reported History Son(s) Family Medical History: No Reported History Medications and Allergies Home Medications Medication Instructions Recorded Confirmed Type Famotidine [Pepcid] 20 mg PO DAILY 02/26/20 10/23/23 History Atorvastatin [Lipitor] 40 mg PO DAILY 01/03/23 10/23/23 History Cholecalciferol [Vitamin D3 (25 25 mcg PO DAILY 01/03/23 10/23/23 History Mcg = 1000 Iu)] Clopidogrel [Plavix] 75 mg PO DAILY 01/03/23 10/23/23 History Metoprolol Succinate [Toprol XL] 50 mg PO DAILY 01/03/23 10/23/23 History calcitrioL [Calcitriol] 0.25 mcg PO MOWEFR 01/03/23 10/23/23 History amLODIPine [Norvasc] 10 mg PO DAILY #30 tab 01/04/23 10/23/23 Rx Aspirin EC [Ecotrin Low Dose] 81 mg PO DAILY 02/13/23 10/23/23 History ALPRAZolam [Xanax] 0.125 mg PO BID PRN 10/23/23 10/23/23 History Bumetanide [BUMEX] 2 mg PO DAILY 10/23/23 10/23/23 History Calcium Acetate [Phoslo] 1,334 mg PO TID-W/MEALS 10/23/23 10/23/23 History FLUoxetine HCL 20 mg PO BID 10/23/23 10/23/23 History Folic Acid/Vit B Complex and C 0.8 mg PO DAILY 10/23/23 10/23/23 History [Nephro-Trang Tablet] Magnesium Oxide [Mag-Ox] 400 mg PO HS 10/23/23 10/23/23 History Megestrol [Megace] 40 mg PO DAILY 10/23/23 10/23/23 History Ondansetron Odt [Zofran Odt] 4 mg PO DAILY 10/23/23 10/23/23 History Ondansetron Odt [Zofran Odt] 4 mg PO Q6H PRN 10/23/23 10/23/23 History Pantoprazole [Protonix] 40 mg PO BID 10/23/23 10/23/23 History Potassium Chloride ER [K-Dur 10] 10 meq PO DAILY 10/23/23 10/23/23 History bisacodyL [Dulcolax] 10 mg PO HS 10/23/23 10/23/23 History buPROPion XL [Wellbutrin XL] 150 mg PO HS 10/23/23 10/23/23 History Allergies Allergy/AdvReac Type Severity Reaction Status Date / Time celecoxib [From Celebrex] Allergy Rash/Hives Verified 10/23/23 12:34 cephalexin [From Keflex] Allergy Unknown Verified 10/23/23 12:34 nitrofurantoin Allergy Rash all Verified 10/23/23 12:34 [From Macrobid] over nitrofurantoin Allergy Rash all Verified 10/23/23 12:34 macrocrystalline over [From Macrobid] sulfamethoxazole Allergy Face Verified 10/23/23 12:34 [From Bactrim] swelling trimethoprim [From Bactrim] Allergy Face Verified 10/23/23 12:34 swelling Physical Exam Vitals: Vital Signs Temp Pulse Pulse Resp BP BP Pulse Ox 10/27/23 06:25 97.9 F 80 16 128/76 95 10/27/23 02:35 97.6 F 81 16 123/80 93 L 10/27/23 00:35 98.6 F 86 17 118/68 95 10/26/23 20:00 18 10/26/23 17:48 97.8 F 87 18 137/50 95 10/26/23 12:49 97.4 F L 82 18 114/70 96 Intake and Output 10/26/23 10/27/23 10/27/23 22:59 06:59 14:59 Other: # Voids 3 # Bowel Movements 1 1 General appearance: The patient is alert, oriented, appears in no acute distress. HET: Head is normocephalic and atraumatic. Conjunctiva pink. Sclera anicteric. Neck: Supple without lymphadenopathy. Trachea midline. Heart: Regular. Lungs: Equal expansion, normal respiratory effort. Abdomen: Soft, nontender, nondistended. No guarding or rigidity. Skin: No rashes. No jaundice. Extremities: Normal skin color and turgor. No pedal edema. Neurological: No focal deficits. Alert and oriented x3. Results CBC & Chem 7: 10/25/23 03:43 10/27/23 05:36 Labs: Abnormal Lab Results - Last 24 Hours (Table) 10/26/23 10/26/23 10/27/23 Range/Units 06:41 06:41 05:36 Sodium 133 L 133 L (137-145) mmol/L Potassium 3.3 L 3.3 L (3.5-5.1) mmol/L Creatinine 3.79 H 3.27 H (0.52-1.04) mg/dL Phosphorus 2.2 L (2.5-4.5) mg/dL Magnesium 2.6 H 2.4 H (1.6-2.3) mg/dL Microbiology - Last 24 Hours (Table) 10/23/23 17:26 Urine Culture - Final Urine,Catheterized Escherichia coli 10/24/23 01:11 Gram Stain - Preliminary Peritoneal Fluid Body Fluid Culture - Preliminary Comments: CT abdomen and pelvis Limited CT of the abdomen only with oral but no IV contrast. Moderate size hiatal hernia with retained contrast in the esophagus which may have been from reflux or dysmotility. Thickened appearance of the wall within the hernia and proximal stomach as well as apparent rugal fold thickening, does not seem fully explained by nondistention alone. Consider pathologic thickening. Upper endoscopy could further assess as warranted. No evidence of bowel obstruction or free air. Moderate stool throughout the colon, correlate for constipation. Cirrhotic hepatic morphology. Moderate volume ascites. Bilateral renal nodules favored to be combination of simple and hyperdense/hemorrhagic cyst, however an underlying neoplasm cannot be excluded from this study. Recommend additional imaging as clinically warranted. CT scan - abdomen: report reviewed Assessment and Plan (1) Nausea and vomiting Narrative/Plan: 78-year-old female presented for altered mental status changes weakness and nausea and vomiting. Patient states nausea and vomiting has been ongoing for last several months with weight loss. Mostly due to when she swallows she feels that she has to gag and then she will vomit. She states she has little appetite. She has no difficulty with liquids. Last EGD was done 3 years ago with findings of nonbleeding antral ulcer, mild antral gastritis and patent dis madisyn esophageal Schatzki's ring. She underwent CT abdomen and pelvis with findings of a moderate hiatal hernia and thickening. Unclear etiology of thickening therefore will proceed with upper endoscopy today. Current Visit: Yes Status: Acute Code(s): R11.2 - NAUSEA WITH VOMITING, UNSPECIFIED SNOMED Code(s): 85448128 (2) Cirrhosis of liver Narrative/Plan: Seen on CT of the abdomen. Cirrhotic liver with ascites. Likely secondary to long history of alcohol use. Patient admits to drinking 2-3 vodka drinks at least 3-4 times a week. Current Visit: Yes Status: Acute Code(s): K74.60 - UNSPECIFIED CIRRHOSIS OF LIVER SNOMED Code(s): 37490954 (3) Unintentional weight loss Current Visit: Yes Status: Acute Code(s): R63.4 - ABNORMAL WEIGHT LOSS SNOMED Code(s): 039280827 (4) Altered mental status Current Visit: Yes Status: Acute Code(s): R41.82 - ALTERED MENTAL STATUS, UNSPECIFIED SNOMED Code(s): 123464082 (5) Generalized weakness Current Visit: Yes Status: Acute Code(s): R53.1 - WEAKNESS SNOMED Code(s): 33636258 (6) Hypokalemia Current Visit: Yes Status: Acute Code(s): E87.6 - HYPOKALEMIA SNOMED Code(s): 94581570 (7) UTI (urinary tract infection) Current Visit: Yes Status: Acute Code(s): N39.0 - URINARY TRACT INFECTION, SITE NOT SPECIFIED SNOMED Code(s): 88298378 (8) End-stage renal disease on peritoneal dialysis Current Visit: Yes Status: Acute Code(s): N18.6 - END STAGE RENAL DISEASE; Z99.2 - DEPENDENCE ON RENAL DIALYSIS SNOMED Code(s): 512053955 (9) Coronary artery disease Current Visit: Yes Status: Acute Code(s): I25.10 - ATHSCL HEART DISEASE OF [place] CORONARY ARTERY W/O ANG PCTRS SNOMED Code(s): 88796965 (10) Ischemic cardiomyopathy Current Visit: Yes Status: Acute Code(s): I25.5 - ISCHEMIC CARDIOMYOPATHY SNOMED Code(s): 656252896 (11) Ascites Narrative/Plan: Likely secondary from underlying liver disease, long history of alcohol use Current Visit: Yes Status: Acute Code(s): R18.8 - OTHER ASCITES SNOMED Code(s): 326360979 Plan: 1. Continue symptomatic and supportive care 2. Continue Protonix 40 mg daily 3. Hold Plavix 4. Will plan for endoscopic evaluation, EGD this afternoon 5. Keep nothing by mouth 6. Recommend alcohol abstinence 7. Recommend outpatient follow-up for liver cirrhosis 8. Further recommendations forthcoming based on EGD findings Thank you for this consultation, we will continue to follow. Dr. Fuentes Cabrales I agree with the dictator's note, documented as a scribe by Trisha Ashraf.
--- NOTE | 2023-10-27 11:29 | P.PN ---
Subjective Progress Note Date: 10/26/23 Patient was seen for a follow-up. Patient's was present by the bedside. He mentions that patient did eat, and did not vomit. However she is not eating much. She ate some eggs. He believes that she is doing okay during the day, but in the evening she is more confused. She is upset because she did not get her ice cream in the lunch tray. Patient continues to be slightly paranoid, as she states pointing to her that "he is trying to prove that I have Alzheimer's". No history of alcoholism. Patient is undergoing upper GI endoscopy on Friday. Objective - Vital Signs Vital signs: Vital Signs Temp 97.4 F L 10/26/23 12:49 Pulse 82 10/26/23 12:49 Resp 18 10/26/23 12:49 BP 114/70 10/26/23 12:49 Pulse Ox 96 10/26/23 12:49 FiO2 Intake & Output 10/25/23 10/26/23 10/26/23 18:59 06:59 18:59 Other: # Voids 4 2 # Bowel Movements 1 - Exam Patient is alert and awake in no distress. Patient continues to be confused. She is slightly paranoid. Speech and language functions are normal. Other examination normal. - Labs CBC & Chem 7: 10/25/23 03:43 10/27/23 05:36 Labs: Abnormal Lab Results - Last 24 Hours (Table) 10/26/23 10/26/23 Range/Units 06:41 06:41 Sodium 133 L (137-145) mmol/L Potassium 3.3 L (3.5-5.1) mmol/L Creatinine 3.79 H (0.52-1.04) mg/dL Magnesium 2.6 H (1.6-2.3) mg/dL Microbiology - Last 24 Hours (Table) 10/23/23 17:26 Urine Culture - Final Urine,Catheterized Escherichia coli 10/24/23 01:11 Gram Stain - Preliminary Peritoneal Fluid Body Fluid Culture - Preliminary Assessment and Plan Assessment: * Altered mental status, likely due to acute delirium/metabolic encephalopathy. Reasons multifactorial as mentioned below. * ESRD, maintained on peritoneal dialysis * Probable UTI * Recurrent nausea vomiting, generalized weakness and debility * Hyponatremia * Hypokalemia * Abnormal liver functions, slightly improving * CT abdomen revealed "cirrhotic hepatic morphology", with moderate volume ascites. * Hiatal hernia with thickened proximal stomach * Bilateral renal nodules, cyst versus mass. IM to address. * History of folate deficiency * X tobacco use Plan: * Patient being treated for acute UTI with ertapenem. Urine has grown > 100,000 E. coli. * Patient being maintained on peritoneal dialysis. Nephrology on board. * CT abdomen and pelvis revealed Cirrhotic hepatic morphology, and moderate v olume ascites. We will defer IM to address possible cirrhosis. Ammonia is <9. Suggest GI consult. * B12 845, folate 5.20, TSH 8.29. IM to address hypothyroidism. Continue folate replacement and multivitamins. * Patient undergoing upper endoscopy on Friday. * Patient has lost a lot of weight. Patient used to be on Prozac 20 mg twice a day, which may be relatively high for her age due to weight loss. We will decrease Prozac down to 20mg daily. Patient does not feel significantly depressed. * Resume Plavix when medically cleared. * Check EEG. * Consider psychiatry consultation for paranoia, persistent delirium. * Check MRI of the brain, as family is very concerned about her acute mental status change. * Discussed with patient's in detail.
[2023-10-27] MEDS ORDERED: PROPOFOL 10 MG/ML 20 ML VIAL IV ONE (13:30)
[2023-10-27] MEDS ORDERED: LIDOCAINE 2% (PF) 20 MG/ML 5 ML VIAL ONE (13:30)
[2023-10-27] MEDS ORDERED: IV FLUID CONTINUATION 300 ML IV ONE (13:46)
--- NOTE | 2023-10-27 13:48 | P.PN ---
Subjective Progress Note Date: 10/27/23 Patient is an 78-year-old female peritoneal dialysis with history of systolic ischemic cardiomyopathy last known ejection fraction 35%, hypertension, dyslipidemia, coronary artery disease status post PCI, and multiple other comorbid conditions who presented to the ER due to increasing weakness, fatigue, and loss of appetite. On arrival to the ER her vital signs were within normal limits. Initial laboratory analysis included CBC, coags, CMP which were remarkable for sodium 131, potassium 3.3, BUN 33, creatinine 6.78, AST 121, ALT 66. Urinalysis was consistent with UTI and she was started on Levaquin. Influenza A/B/RSV/COVID-19 testing was negative. Arrangements were made for admission. Nephrology was consulted. She underwent CT abdomen and pelvis which demonstrated moderate size hiatal hernia with retained contrast in the esophagus from reflux or dysmotility as well as a thickened appearance of the wall within the hernia of the proximal stomach concerning for pathologic thickening, there is moderate stool throughout the colon and bilateral renal nodules. Dietary was consulted. Calorie count was started. GI consulted, pending EGD today Patient seen and examined at bedside. She denies any abdominal discomfort. Vital signs reviewed General: Nontoxic, no distress, appears at stated age, temporal wasting Cardiovascular: S1S2 reg, no murmur, positive posterior tibial pulse bilateral, Lungs: Decreased breath sounds bilateral, no rhonchi, no rales, no accessory muscle use Abdominal: Soft, nontender to palpation, no guarding, no appreciable organomegaly Ext: No gross muscle atrophy, no edema b/l lower extremities, no contractures Neuro: CN II-XI grossly intact, no focal neuro deficits Psych: Alert, oriented, appropriate affect Assessment/Plan: Acute metabolic encephalopathy, resolving UTI Generalized weakness and debility Nausea and vomiting Constipation, resolved Hepatic steatosis with chronically elevated liver enzymes , suspected liver cirrhosis History of alcohol dependence Severe protein calorie malnutrition with cachexia Hiatal hernia with thicked proximal stomach Renal cysts, bilateral -Nephrology following, MRI brain pending, EEG pending -GI no current reviewed, pending EGD today, likely outpatient follow-up for liver cirrhosis - lactulose 20 mg PO as needed for constipation - Normal saline at 75 cc/h -PT/OT -Fall precautions - Ertapenem 500 mg IV piggyback daily based on patient's prior history of ESBL x 2 in the urine, urine positive for gram-negative bacilli -Complete a total of 5 days of IV antibiotics Hypokalemia -20 mEq oral potassium given today -Calcitriol 0.25 mcg Friday, Friday, Friday, PhosLo 1134 mg 3 times daily with meals, vitamin D 25 mg daily -Repeat BMP and magnesium tomorrow Peritoneal dialysis - nephrology following, conitnue PD Compensated systolic cardiomyopathy with ejection fraction 35% Hypertension Dyslipidemia Coronary artery disease -Norvasc 10 mg daily, metoprolol 50 mg daily -Hold Aspirin 81 mg daily-Plavix 75 mg daily for EGD -Lipitor 40 mg daily -Hold Bumex due to patient appearing hypovolemic Chronic: Prior GI bleed Cataract disease Diverticular disease Iron deficiency anemia Osteoarthritis History of ESBL Imaging: CT abdomen and pelvis which demonstrated moderate size hiatal hernia with retained contrast in the esophagus from reflux or dysmotility as well as a thickened appearance of the wall within the hernia of the proximal stomach concerning for pathologic thickening, there is moderate stool throughout the colon and bilateral renal nodules. Data Review: Sodium 133, potassium 3.3, creatinine 3.07, magnesium 2.4 DVT prophylaxis: Heparin Anticipated discharge date: Pending clinical course Anticipated discharge place: Pending clinical course Objective - Vital Signs Vital signs: Vital Signs Temp 97.7 F 10/27/23 08:21 Pulse 81 10/27/23 08:21 Resp 17 10/27/23 08:21 BP 137/76 10/27/23 08:21 Pulse Ox 97 10/27/23 08:21 FiO2 Intake & Output 10/26/23 10/27/23 10/27/23 18:59 06:59 18:59 Other: # Voids 3 # Bowel Movements 1 - Labs CBC & Chem 7: 10/25/23 03:43 10/27/23 05:36 Labs: Abnormal Lab Results - Last 24 Hours (Table) 10/27/23 Range/Units 05:36 Sodium 133 L (137-145) mmol/L Potassium 3.3 L (3.5-5.1) mmol/L Creatinine 3.27 H (0.52-1.04) mg/dL Phosphorus 2.2 L (2.5-4.5) mg/dL Magnesium 2.4 H (1.6-2.3) mg/dL Microbiology - Last 24 Hours (Table) 10/24/23 01:11 Gram Stain - Preliminary Peritoneal Fluid Body Fluid Culture - Preliminary 10/23/23 17:26 Urine Culture - Final Urine,Catheterized Escherichia coli
--- NOTE | 2023-10-27 14:04 | P.PCN ---
Date of Procedure: 10/27/23 Procedure(s) Performed: BRIEF HISTORY: Patient is a 78-year-old, pleasant, white female with history of end-stage and renal disease on peritoneal dialysis was admitted hospital with generalized weakness, nausea vomiting and dysphagia for the last 1 month duration. She is scheduled for an upper endoscopy to evaluate further. PROCEDURE PERFORMED: Esophagogastroduodenoscopy with biopsy. PREOPERATIVE DIAGNOSIS: Dysphagia/intermittent nausea vomiting of one month duration. IV sedation per anesthesia. PROCEDURE: After informed consent was obtained, the patient was brought into the endoscopy unit. IV sedation was administered by Anesthesia under continuous monitoring. Initially the Olympus GIF-140 video endoscope was inserted into the mouth. Esophagus intubated without any difficulty. It was gradually advanced into the stomach and duodenum and carefully examined. The bulb and the second part of the duodenum appeared normal. The scope at this time was withdrawn to the stomach, adequately insufflated with air, and upon careful examination, mucosa of the antrum, body, had diffuse gastritis and biopsies were done. Mucosa of the cardia and the fundus appeared normal. The scope was then withdrawn into the esophagus. The GE junction was located at 37 cm from the incisors. Multiple moderate size hiatal hernia noted. The entire length of esophagus appeared normal. There were no erosions or ulcerations seen , biopsies were done from the distal esophagus. Proximal cervical esophagus was carefully examined and appeared normal / possibility of a small Zenker's diverticulum could not be excluded and the patient tolerated the procedure well. IMPRESSION: 1. Diffuse gastritis. 2. Small to moderate size hiatal hernia 3. No evidence of esophageal stricture. RECOMMENDATIONS: The findings of this examination were discussed with the patient as well as her family.. Continue with Protonix 40 mg daily. Advised to start on a soft diet and advance as tolerated. If she continues to have persistent dysphagia/gag reflex, we'll consider obtaining a modified barium swallow to evaluate for Zenker's diverticulum.
--- NOTE | 2023-10-27 15:08 | P.PN ---
Subjective Patient is seen in follow-up for end-stage renal disease. Maintain on peritoneal dialysis. Underwent EGD this afternoon that showed gastritis. No problems with PD changes. Vital signs are stable. General: NAD. HEENT: Head exam is unremarkable. LUNGS: No audible rhonhci or wheezes. HEART: Rate and Rhythm are regular. ABDOMEN: Nontender. EXTREMITITES: No edema. Objective - Vital Signs Vital signs: Vital Signs Temp 97.7 F 10/27/23 08:21 Pulse 81 10/27/23 08:21 Resp 17 10/27/23 08:21 BP 137/76 10/27/23 08:21 Pulse Ox 97 10/27/23 08:21 FiO2 Intake & Output 10/26/23 10/27/23 10/27/23 18:59 06:59 18:59 Intake Total 100 Balance 100 Intake: IV 100 Other: # Voids 3 # Bowel Movements 1 - Labs CBC & Chem 7: 10/25/23 03:43 10/27/23 05:36 Labs: Abnormal Lab Results - Last 24 Hours (Table) 10/27/23 Range/Units 05:36 Sodium 133 L (137-145) mmol/L Potassium 3.3 L (3.5-5.1) mmol/L Creatinine 3.27 H (0.52-1.04) mg/dL Phosphorus 2.2 L (2.5-4.5) mg/dL Magnesium 2.4 H (1.6-2.3) mg/dL Microbiology - Last 24 Hours (Table) 10/24/23 01:11 Gram Stain - Preliminary Peritoneal Fluid Body Fluid Culture - Preliminary 10/23/23 17:26 Urine Culture - Final Urine,Catheterized Escherichia coli Assessment and Plan Plan: Assessment: 1. End-stage renal disease maintained on peritoneal dialysis. 2. Hypokalemia from poor intake and PD losses. 3. Dysphagia status post EGD which showed diffuse gastritis and small to m oderate hiatal hernia. 4. E. coli UTI on antibiotics. Dialysate fluid nucleated cells 2. 5. Hepatic steatosis, questionable cirrhosis. 6. Chronic kidney disease mineral bone disease maintained on calcitriol and PhosLo. 7. Coronary artery disease. Plan: Maintain current PD exchanges. Potassium replaced. Phosphorus level low. Stop PhosLo for now. Encourage oral intake.
[2023-10-27] MEDS ORDERED: ALPRAZolam 0.5 MG TAB PO STA (15:50)
--- NOTE | 2023-10-27 17:06 | MR ---
EXAMINATION TYPE: MR brain wo con DATE OF EXAM: 10/27/2023 4:43 PM CLINICAL INDICATION:Female, 78 years old with history of AMS; COMPARISON: 10/23/2023.. TECHNIQUE: Multi planar, multi sequence imaging was performed through the brain including: T1, T2, In version recovery, Diffusion weighted imaging, and gradient echo imaging. No gadolinium was given. FINDINGS: Mild cerebral atrophy with proportional dilation of ventricular system. Scattered foci of high T2 s ignal intensity are seen within the periventricular white matter. Midline structures show no abnormal ity. Diffusion-weighted imaging shows no evidence of restricted diffusion. The susceptibility weighte d images do not reveal any evidence for micro-hemorrhage. The bone marrow signal is within normal limits. Paranasal sinuses and mastoid air cells: No significant paranasal sinus disease. Visualized orbits: Orbital contents are intact. IMPRESSION: 1. No evidence of intracranial mass or acute/subacute infarct. 2. Nonspecific white matter changes, likely secondary to small vessel ischemic disease.
--- NOTE | 2023-10-27 18:49 | P.PN ---
Subjective Progress Note Date: 10/27/23 Patient was seen for a follow-up. Patient's was present by the bedside. Patient had undergone a lot of testing today. She was given some sedation for MRI, therefore she is asleep. Also underwent scoping and was found to have hiatal hernia. Patient's believes that she was able to eat, did not vomit. He believes she slightly better. No history of alcoholism. Objective - Vital Signs Vital signs: Vital Signs Temp 97.7 F 10/27/23 15:08 Pulse 76 10/27/23 15:08 Resp 18 10/27/23 15:08 BP 118/71 10/27/23 15:08 Pulse Ox 95 10/27/23 15:08 FiO2 Intake & Output 10/26/23 10/27/23 10/27/23 18:59 06:59 18:59 Intake Total 100 Balance 100 Intake: IV 100 Other: # Voids 3 2 # Bowel Movements 1 2 - Exam Patient is very somnolent at this time, because patient has received sedation for MRI and for scoping. Detailed examination deferred. - Labs CBC & Chem 7: 10/25/23 03:43 10/27/23 05:36 Labs: Abnormal Lab Results - Last 24 Hours (Table) 10/27/23 Range/Units 05:36 Sodium 133 L (137-145) mmol/L Potassium 3.3 L (3.5-5.1) mmol/L Creatinine 3.27 H (0.52-1.04) mg/dL Phosphorus 2.2 L (2.5-4.5) mg/dL Magnesium 2.4 H (1.6-2.3) mg/dL Microbiology - Last 24 Hours (Table) 10/24/23 01:11 Gram Stain - Preliminary Peritoneal Fluid Body Fluid Culture - Preliminary 10/23/23 17:26 Urine Culture - Final Urine,Catheterized Escherichia coli Assessment and Plan Assessment: * Altered mental status, likely due to acute delirium/metabolic encephalopathy. Reasons multifactorial as mentioned below. * ESRD, maintained on peritoneal dialysis * Acute UTI from E. coli. * Recurrent nausea vomiting, generalized weakness and debility * Hyponatremia * Hypokalemia * Abnormal liver functions, slightly improving * CT abdomen revealed "cirrhotic hepatic morphology", with moderate volume ascites. * Hiatal hernia with thickened proximal stomach * Bilateral renal nodules, cyst versus mass. IM to address. * History of folate deficiency * X tobacco use Plan: * Patient being treated for acute UTI with ertapenem. Urine has grown > 100,000 E. coli. * Patient being maintained on peritoneal dialysis. Nephrology on board. * CT abdomen and pelvis revealed Cirrhotic hepatic morphology, and moderate volume ascites. We will defer IM to address possible cirrhosis. Ammonia is <9. Suggest GI consult. * B12 845, folate 5.20, TSH 8.29. IM to address hypothyroidism. Continue folate replacement and multivitamins. * Patient undergoing upper endoscopy on Friday. * Patient has lost a lot of weight. Patient used to be on Prozac 20 mg twice a day, which may be relatively high for her age due to weight loss. We will decrease Prozac down to 20mg daily. Patient does not feel significantly depressed. * Resume Plavix when medically cleared. * EEG preliminary report showed mild generalized cerebral dysfunction suggestive of encephalopathy or medication effect. No epileptiform activity was seen. * MRI of the brain revealed no evidence of intracranial mass or acute/subacute infarct. Nonspecific white matter changes, likely secondary to small vessel ischemic disease. I personally reviewed MRI agree with the findings. * Consider psychiatry consultation for paranoia, persistent delirium. * Dr. Homero Rutledge Will resume neurology service in the morning. Discussed with patient's in detail.
[2023-10-27] MEDS: FLUoxetine HCL 20 MG CAP PO SCH (21:09)
[2023-10-27] MEDS: buPROPion XL 150 MG TAB.ER.24H PO SCH (21:09)
[2023-10-28] MEDS ORDERED: DIALYSIS (PERIT 1.5%) 2,000 ML 30 G/2,000 ML BAG INTRAPERIT SCH
[2023-10-28] MEDS: DIALYSIS (PERIT 1.5%) 2,500 ML 30 G/2,000 ML BAG INTRAPERIT SCH ×4 (02:05→17:52)
--- NOTE | 2023-10-28 03:16 | EEG ---
ELECTROENCEPHALOGRAM REPORT PREAMBLE: This is an 78-year-old female with altered mental status. This study is performed to evaluate for any epileptiform activity. EEG FINDINGS: This is a 21-channel digital EEG recorded with video component, utilizing 10/20 international system with referential and bipolar montages. Background consists of moderately well-developed and regulated, mixed frequencies of 8-9 hertz alpha, with some 6-7 hertz theta activity seen in bihemispheric region. Background is posterior dominant and seems to be slightly reactive to eye opening or closing. Photic driving response was not clearly seen. Different stages of sleep were not seen. Study is technically limited because of almost continuous myogenic activity in bilateral temporal region, left is continuous whereas right is quite frequent. Different stages of sleep were not clearly seen. No focal or generalized epileptiform activity was seen. IMPRESSION: This is a borderline normal EEG due to minimal background slowing, suggestive of mild cerebral dysfunction as can be seen with encephalopathy or medication effect. No epileptiform activity was seen. EEG was technically limited because of persistent myogenic artifact in the bilateral temporal region. Consider repeat study, if clinically indicated. MMODL / IJN: [id number] /
[2023-10-28] MEDS: SODIUM CHLORIDE 0.9% 1,000 ML IV SCH (05:49)
[2023-10-28] MEDS: PANTOPRAZOLE 40 MG TABLET PO SCH ×2 (06:36→17:52)
[2023-10-28] MEDS: CHOLECALCIFEROL 25 MCG (1000 IU) TABLET PO SCH (09:32)
[2023-10-28] MEDS: FAMOTIDINE 20 MG TAB PO SCH (09:32)
[2023-10-28] MEDS: POTASSIUM CHLORIDE ER 10 MEQ TAB.ER.PRT PO SCH (09:32)
[2023-10-28] MEDS: METOPROLOL SUCCINATE (ER) 50 MG TAB.ER.24H PO SCH (09:32)
[2023-10-28] MEDS: ATORVASTATIN 40 MG TAB PO SCH (09:32)
[2023-10-28] MEDS: HEPARIN SODIUM,PORCINE 5,000 UNIT/ML 1 ML VIAL SQ SCH ×2 (09:32→21:07)
[2023-10-28] MEDS: amLODIPine 10 MG TAB PO SCH (09:32)
[2023-10-28] MEDS: FOLIC ACID-VIT B COMPLEX-VIT C 1 CAP PO SCH (09:33)
[2023-10-28] MEDS: ERTAPENEM 0.5 GM in SODIUM CHLORIDE 0.9% 50 ML IVPB SCH (09:33)
--- NOTE | 2023-10-28 11:03 | P.PN ---
Subjective Progress Note Date: 10/28/23 Principal diagnosis: Nausea and vomiting This a pleasant 78-year-old female who presented to the emergency department for generalized weakness, altered mental status changes, and nausea and vomiting. Past medical history includes end-stage renal disease on peritoneal dialysis, history of systolic ischemic cardiomyopathy, hypertension, dyslipidemia, coronary artery disease status post PCI in multiple other comorbidities. Patient states that she's had a decreased appetite and weight loss over the last several months. She states that she will get nauseated and gagging when she eats. She has no difficulty with keeping liquids in. States she is eating. Little. She was admitted to the hospital for generalized weakness, hypokalemia, urinary tract infection and altered mental status changes. She had a CT of the abdomen that reported a moderate sized hiatal hernia with retained contrast in the esophagus and thickened appearance of the wall within the hernia and proximal stomach. Gastroenterology was consulted for nausea and vomiting and possible endoscopic evaluation. She does have a history of previous GI bleed and underwent an EGD on 02/27/[address] Handley with findings of nonbleeding antral ulcer, mild antral gastritis and a patent distal esophageal Schatzki's ring. She also underwent a colonoscopy during that same hospitalization on 02/29/2020 with findings of a normal colon, moderate left colonic diverticulosis and low-grade internal hemorrhoids. She denies any abdominal pain, no epigastric pain, no chest pain, shortness of breath. She was also noted to have moderate amount of stool on CT and abdominal x-ray. Also noted was a cirrhotic liver with moderate ascites. Patient does admit to drinking 2-3 vodka drinks 3-4 days a week for many years. No known history of cirrhosis of the liver. 10/28/2023 Patient seen and examined today as a follow-up. Yesterday she went for EGD with findings of diffuse gastritis, small to moderate size hiatal hernia but no evidence of esophageal stricture. She is currently sitting up in bed. States that she had no difficulty with eating dinner or breakfast and that she is eating better. Denies any nausea or vomiting. Objective - Vital Signs Vital signs: Vital Signs Temp 97.2 F L 10/28/23 07:11 Pulse 76 10/28/23 07:11 Resp 14 10/28/23 07:11 BP 117/76 10/28/23 07:11 Pulse Ox 93 L 10/28/23 07:11 FiO2 Intake & Output 10/27/23 10/28/23 10/28/23 18:59 06:59 18:59 Intake Total 100 Balance 100 Intake: IV 100 Other: # Voids 2 # Bowel Movements 2 - Exam General appearance: The patient is alert, oriented, appears in no acute distress. HET: Head is normocephalic and atraumatic. Conjunctiva pink. Sclera anicteric. Neck: Supple without lymphadenopathy. Abdomen: Soft, nontender, nondistended with bowel sounds. No guarding or rigidity. Extremities: Normal skin color and turgor. No pedal edema Skin: No rashes, no jaundice Neurological: No focal deficits. Alert and oriented. - Labs CBC & Chem 7: 10/25/23 03:43 10/27/23 05:36 Labs: Microbiology - Last 24 Hours (Table) 10/24/23 01:11 Gram Stain - Final Peritoneal Fluid Body Fluid Culture - Final Assessment and Plan (1) Nausea and vomiting Narrative/Plan: 78-year-old female presented for altered mental status changes weakness and nausea and vomiting. Patient states nausea and vomiting has been ongoing for last several months with weight loss. Mostly due to when she swallows she feels that she has to gag and then she will vomit. She states she has little appetite. She has no difficulty with liquids. Last EGD was done 3 years ago with findings of nonbleeding antral ulcer, mild antral gastritis and patent d istal esophageal Schatzki's ring. She underwent CT abdomen and pelvis with findings of a moderate hiatal hernia and thickening. Unclear etiology of thickening therefore will proceed with upper endoscopy today. 10/28/2023 patient is status post EGD without any findings of stricture, diffuse gastritis and small to moderate-sized hiatal hernia. No complaints of difficulty swallowing today nausea or vomiting. States she is eating better. We'll continue with protonic 40 mg daily and recommend discharge home on that. Patient to follow-up with gastroenterology for biopsy results. Current Visit: Yes Status: Acute Code(s): R11.2 - NAUSEA WITH VOMITING, UNSPECIFIED SNOMED Code(s): 21506134 (2) Cirrhosis of liver Narrative/Plan: Seen on CT of the abdomen. Cirrhotic liver with ascites. Likely secondary to long history of alcohol use. Patient admits to drinking 2-3 vodka drinks at least 3-4 times a week. Current Visit: Yes Status: Acute Code(s): K74.60 - UNSPECIFIED CIRRHOSIS OF LIVER SNOMED Code(s): 73607320 (3) Unintentional weight loss Current Visit: Yes Status: Acute Code(s): R63.4 - ABNORMAL WEIGHT LOSS SNOMED Code(s): 668672551 (4) Altered mental status Current Visit: Yes Status: Acute Code(s): R41.82 - ALTERED MENTAL STATUS, UNSPECIFIED SNOMED Code(s): 118060113 (5) Generalized weakness Current Visit: Yes Status: Acute Code(s): R53.1 - WEAKNESS SNOMED Code(s): 85925912 (6) Hypokalemia Current Visit: Yes Status: Acute Code(s): E87.6 - HYPOKALEMIA SNOMED Code(s): 51465615 (7) UTI (urinary tract infection) Current Visit: Yes Status: Acute Code(s): N39.0 - URINARY TRACT INFECTION, SITE NOT SPECIFIED SNOMED Code(s): 81115987 (8) End-stage renal disease on peritoneal dialysis Current Visit: Yes Status: Acute Code(s): N18.6 - END STAGE RENAL DISEASE; Z99.2 - DEPENDENCE ON RENAL DIALYSIS SNOMED Code(s): 529948889 (9) Coronary artery disease Current Visit: Yes Status: Acute Code(s): I25.10 - ATHSCL HEART DISEASE OF [place] CORONARY ARTERY W/O ANG PCTRS SNOMED Code(s): 38696573 (10) Ischemic cardiomyopathy Current Visit: Yes Status: Acute Code(s): I25.5 - ISCHEMIC CARDIOMYOPATHY SNOMED Code(s): 414492704 (11) Ascites Narrative/Plan: Likely secondary from underlying liver disease, long history of alcohol use Current Visit: Yes Status: Acute Code(s): R18.8 - OTHER ASCITES SNOMED Cod e(s): 198990563 Plan: 1. Continue symptomatic and supportive care 2. Continue Protonix 40 mg daily 3. Patient is status post EGD 4. May resume Plavix 5. Diet as tolerated 6. Recommend alcohol abstinence 7. Recommend outpatient follow-up for liver cirrhosis and biopsy results Thank you for this consultation, patient is cleared from gastroenterology for discharge. Dr. Fuentes Cabrales I agree with the dictator's note, documented as a scribe by Trisha Ashraf.
[2023-10-28 11:37] LABS: BUN/Creat Ratio 3.48 Ratio (12.00-20.00); Blood Urea Nitrogen 11.5 mg/dL (9.0-27.0); Calcium 9.1 mg/dL (8.7-10.3); Carbon Dioxide 27.3 mmol/L (21.6-31.8); Chloride 103 mmol/L (96-109); Glucose 79 mg/dL (70-110); Magnesium 2.1 mg/dL (1.5-2.4); Potassium 3.7 mmol/L (3.5-5.5); Sodium 135 mmol/L (135-145)
--- NOTE | 2023-10-28 12:08 | P.PN ---
Subjective Patient is seen in follow-up for end-stage renal disease. Maintain on peritoneal dialysis. Underwent EGD 10/27/23 that showed gastritis. No problems with PD exchanges. Feels weak. present at bedside. Vital signs are stable. General: NAD. HEENT: Head exam is unremarkable. LUNGS: No audible rhonhci or wheezes. HEART: Rate and Rhythm are regular. ABDOMEN: Nontender. EXTREMITITES: No edema. Objective - Vital Signs Vital signs: Vital Signs Temp 97.2 F L 10/28/23 07:11 Pulse 76 10/28/23 07:11 Resp 14 10/28/23 07:11 BP 117/76 10/28/23 07:11 Pulse Ox 93 L 10/28/23 07:11 FiO2 Intake & Output 10/27/23 10/28/23 10/28/23 18:59 06:59 18:59 Intake Total 100 Balance 100 Intake: IV 100 Other: # Voids 2 # Bowel Movements 2 - Labs CBC & Chem 7: 10/25/23 03:43 10/28/23 07:00 Labs: Abnormal Lab Results - Last 24 Hours (Table) 10/28/23 Range/Units 07:00 Creatinine 3.3 H (0.6-1.5) mg/dL Est GFR (CKD-EPI) 14 L (>=60) BUN/Creatinine Ratio 3.48 L (12.00-20.00) Ratio Microbiology - Last 24 Hours (Table) 10/24/23 01:11 Gram Stain - Final Peritoneal Fluid Body Fluid Culture - Final Assessment and Plan Plan: Assessment: 1. End-stage renal disease maintained on peritoneal dialysis. 2. Hypokalemia from poor intake and PD losses. Replace. Better. 3. Dysphagia status post EGD which showed diffuse gastritis and small to moderate hiatal hernia. 4. E. coli UTI on antibiotics. Dialysate fluid nucleated cells 2. 5. Hepatic steatosis, questionable cirrhosis. 6. Chronic kidney disease mineral bone disease maintained on calcitriol and PhosLo. 7. Coronary artery disease. Plan: Maintain current PD exchanges. Potassium replaced. Phosphorus level 2.2 dated 10/27/2023. Stop PhosLo for now. Encourage oral intake. Urology and ID will be consulted due to recurrent UTIs. Case discussed with primary team.
[2023-10-28] MEDS: CLOPIDOGREL 75 MG TAB PO SCH (12:41)
--- NOTE | 2023-10-28 14:28 | P.PN ---
Subjective Progress Note Date: 10/28/23 Patient is an 78-year-old female peritoneal dialysis with history of systolic ischemic cardiomyopathy last known ejection fraction 35%, hypertension, dyslipidemia, coronary artery disease status post PCI, and multiple other comorbid conditions who presented to the ER due to increasing weakness, fatigue, and loss of appetite. On arrival to the ER her vital signs were within normal limits. Initial laboratory analysis included CBC, coags, CMP which were remarkable for sodium 131, potassium 3.3, BUN 33, creatinine 6.78, AST 121, ALT 66. Urinalysis was consistent with UTI and she was started on Levaquin. Influenza A/B/RSV/COVID-19 testing was negative. Arrangements were made for admission. Nephrology was consulted. She underwent CT abdomen and pelvis which demonstrated moderate size hiatal hernia with retained contrast in the esophagus from reflux or dysmotility as well as a thickened appearance of the wall within the hernia of the proximal stomach concerning for pathologic thickening, there is moderate stool throughout the colon and bilateral renal nodules. Dietary was consulted. Calorie count was started. GI consulted, EGD showed diffuse gastritis, small to moderate size hiatal hernia, no evidence of esophageal strictures, biopsies were done. Brain MRI and EEG did not show any acute process. Due to recurrent urinary tract infection, ID and urology also cons ulted. Patient seen and examined at bedside. She denies any abdominal discomfort. Nausea is slightly better. Has not been getting out of bed. Vital signs reviewed General: Nontoxic, no distress, appears at stated age, temporal wasting Cardiovascular: S1S2 reg, no murmur, positive posterior tibial pulse bilateral, Lungs: Decreased breath sounds bilateral, no rhonchi, no rales, no accessory mu scle use Abdominal: Soft, nontender to palpation, no guarding, no appreciable organomegaly Ext: No gross muscle atrophy, no edema b/l lower extremities, no contractures Neuro: CN II-XI grossly intact, no focal neuro deficits Psych: Alert, oriented, appropriate affect Assessment/Plan: Acute metabolic encephalopathy, resolving Recurrent MDRO urinary tract infection Generalized weakness and debility Nausea and vomiting, resolving Constipation, resolved Hepatic steatosis with chronically elevated liver enzymes , suspected liver cirrhosis History of alcohol dependence Severe protein calorie malnutrition with cachexia Hiatal hernia with thicked proximal stomach Gastritis Renal cysts, bilateral -Nephrology following, no acute process noted on MRI or EEG -GI note reviewed, outpatient follow-up - lactulose 20 mg PO as needed for constipation -PT/OT -Fall precautions -Ertapenem 500 mg IV piggyback daily based on patient's prior history of ESBL x 2 in the urine, urine positive for gram-negative bacilli -ID and urology consulted due to recurrent urinary tract infection Hypokalemia, resolved -Calcitriol 0.25 mcg Friday, Friday, Friday, vitamin D 25 mg daily -Repeat BMP and magnesium tomorrow ESRD on PD - nephrology following, conitnue PD -Discussed management with nephrology, due to recurrent urinary tract infection, consult ID and urology -phoslo discontinued Compensated systolic cardiomyopathy with ejection fraction 35% Hypertension Dyslipidemia Coronary artery disease -Norvasc 10 mg daily, metoprolol 50 mg daily -restarted Aspirin 81 mg daily-Plavix 75 mg daily -Lipitor 40 mg daily -Hold Bumex due to patient appearing hypovolemic Chronic: Prior GI bleed Cataract disease Diverticular disease Iron deficiency anemia Osteoarthritis History of ESBL Imaging: CT abdomen and pelvis which demonstrated moderate size hiatal hernia with retained contrast in the esophagus from reflux or dysmotility as well as a thickened appearance of the wall within the hernia of the proximal stomach concerning for pathologic thickening, there is moderate stool throughout the colon and bilateral renal nodules. Data Review: Sodium 135, potassium 3.7, Cr 3.3, Mg 2.1 DVT prophylaxis: Heparin Anticipated discharge date: Pending clinical course Anticipated discharge place: Pending clinical course Objective - Vital Signs Vital signs: Vital Signs Temp 97.4 F L 10/28/23 12:15 Pulse 86 10/28/23 12:15 Resp 16 10/28/23 12:15 BP 113/77 10/28/23 12:15 Pulse Ox 97 10/28/23 12:15 FiO2 Intake & Output 10/27/23 10/28/23 10/28/23 18:59 06:59 18:59 Intake Total 100 Balance 100 Intake: IV 100 Other: # Voids 2 # Bowel Movements 2 - Labs CBC & Chem 7: 10/25/23 03:43 10/28/23 07:00 Labs: Abnormal Lab Results - Last 24 Hours (Table) 10/28/23 Range/Units 07:00 Creatinine 3.3 H (0.6-1.5) mg/dL Est GFR (CKD-EPI) 14 L (>=60) BUN/Creatinine Ratio 3.48 L (12.00-20.00) Ratio Microbiology - Last 24 Hours (Table) 10/24/23 01:11 Gram Stain - Final Peritoneal Fluid Body Fluid Culture - Final
--- NOTE | 2023-10-28 17:15 | P.PN ---
Subjective Progress Note Date: 10/28/23 I am seeing the patient for the first time during this admission. Please refer to Dr. Bernal's notes for further details. It seems patient had altered mental status likely due to delirium/metabolic encephalopathy. She has underlying UTI. feels she is making some improvements. Objective - Vital Signs Vital signs: Vital Signs Temp 97.6 F 10/28/23 13:27 Pulse 85 10/28/23 13:27 Resp 18 10/28/23 13:27 BP 124/82 10/28/23 13:27 Pulse Ox 95 10/28/23 13:27 FiO2 Intake & Output 10/27/23 10/28/23 10/28/23 18:59 06:59 18:59 Intake Total 100 Balance 100 Weight 44.906 kg Intake: IV 100 Other: # Voids 2 # Bowel Movements 2 - Exam General: Lying in bed and is not in acute distress. Neuro: Patient is awake alert oriented to self and stated she is in the hospital. She stated that the month is November the 2021. She's able to name the current state and able to name objects correctly such as glasses and watch. She's able to name her 's name correctly. She is following simple commands. Pupils are round equal reactive to light. Visual alas are full to confrontation. Extraocular movement was intact no nystagmus. No facial weakness. No dysarthria Motor is a strength is 5 out of 5 throughout. - Labs CBC & Chem 7: 10/25/23 03:43 10/28/23 07:00 Labs: Abnormal Lab Results - Last 24 Hours (Table) 10/28/23 Range/Units 07:00 Creatinine 3.3 H (0.6-1.5) mg/dL Est GFR (CKD-EPI) 14 L (>=60) BUN/Creatinine Ratio 3.48 L (12.00-20.00) Ratio Microbiology - Last 24 Hours (Table) 10/24/23 01:11 Gram Stain - Final Peritoneal Fluid Body Fluid Culture - Final Assessment and Plan Assessment: * Altered mental status, likely due to acute delirium/metabolic encephalopathy. Reasons multifactorial as mentioned below. * ESRD, maintained on peritoneal dialysis * Acute UTI from E. coli. * Recurrent nausea vomiting, generalized weakness and debility * Hyponatremia * Hypokalemia * Abnormal liver functions, slightly improving * CT abdomen revealed "cirrhotic hepatic morphology", with moderate volume ascites. * Hiatal hernia with thickened proximal stomach * Bilateral renal nodules, cyst versus mass. IM to address. * History of folate deficiency * X tobacco use Plan: * Patient being treated for acute UTI with ertapenem. Urine has grown > 100,000 E. coli. * Patient being maintained on peritoneal dialysis. Nephrology on board. * CT abdomen and pelvis revealed Cirrhotic hepatic morphology, and moderate volume ascites. We will defer IM to address possible cirrhosis. Ammonia is <9. Suggest GI consult. * B12 845, folate 5.20, TSH 8.29. IM to address hypothyroidism. Continue folate replacement and multivitamins. * Patient undergoing upper endoscopy on Friday. * Patient has lost a lot of weight. Patient used to be on Prozac 20 mg twice a day, which may be relatively high for her age due to weight loss. We will decrease Prozac down to 20mg daily. Patient does not feel significantly depressed. * Resume Plavix when medically cleared. * EEG preliminary report showed mild generalized cerebral dysfunction suggestive of encephalopathy or medication effect. No epileptiform activity was seen. * MRI of the brain revealed no evidence of intracranial mass or acute/subacute infarct. Nonspecific white matter changes, likely secondary to small vessel ischemic disease. I personally reviewed MRI agree with the findings. * Consider psychiatry consultation for paranoia, persistent delirium. * Her was notified if she continues to have further confusion for the patient to follow-up with a neurologist as an outpatient for further evaluation and management. Consider neuropsych evaluation as an outpatient. * We'll defer the rest of the medical measure department he No further neurological workup. We'll sign off. Please reconsult as needed Time with Patient: Less than 30
[2023-10-28] MEDS: FLUoxetine HCL 20 MG CAP PO SCH (21:07)
[2023-10-28] MEDS: buPROPion XL 150 MG TAB.ER.24H PO SCH (21:07)
--- NOTE | 2023-10-28 22:37 | P.CONS ---
History of Present Illness - Reason for Consult Consult date: 10/28/23 MDRO UTI, recurrent Requesting physician: Nilay Freeman - Chief Complaint Weakness decreased appetite and nausea x days - History of Present Illness Patient is a 78-year-old female with a past medical history significant for hypertension hyperlipidemia DC heart failure also have a history of end-stage renal disease on peritoneal dialysis patient presented to the hospital about 6 days ago for evaluation of weakness that has been progressive getting worse over the last few weeks patient also has been feeling nauseous and did have decreased oral intake making up to becoming more and more weaker no clear history of any fever or any chills no headache chest pain shortness of breath or cough with the symptoms the patient has been evaluated on presentation to the hospital patient was afebrile and no fever have recorded subsequently patient was not tachycardic hypotensive or hypoxic patient mention she still makes urine on a daily basis however denies significant burning frequency suprapubic or flank pain patient did have a normal white count on admission creatinine has been elevated liver exams are mildly elevated patient did have a urine with large leukocyte esterase more than 182 WBC patient urine culture has been finalized with ESBL E. coli antibiotic, patient was started on Invanz infectious disease was consulted for further management of antibiotic therapy Review of Systems Positive point and negatives has been mentioned in the HPI, complete review of systems was performed and all other systems are negative Past Medical History Past Medical History: Heart Failure, Eye Disorder, GI Bleed, Hyperlipidemia, Hypertension, Myocardial Infarction (DC), Musculoskeletal Disorder, Osteoarthritis (OA), Renal Disease Additional Past Medical History / Comment(s): Chronic anemia-iron deficiency, chronic kidney disease stage V, diverticular disease, osteoporosis; cataracts with lens replacement Last Myocardial Infarction Date:: 11/27/22 History of Any Multi-Drug Resistant Organisms: ESBL Year Discovered:: 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 Source:: Urine Past Surgical History: Heart Catheterization With Stent, Orthopedic Surgery, To nsillectomy, Tubal Ligation Additional Past Surgical History / Comment(s): removal ovary, bilateral cataract removal with lens implant, cervical spinal fusion, cervical steroid injection Past Anesthesia/Blood Transfusion Reactions: No Reported Reaction Date of Last Stent Placement:: 11/27/22 Past Psychological History: Anxiety Smoking Status: Former smoker Past Alcohol Use History: Occasional Past Drug Use History: None Reported - Past Family History Mother Family Medical History: Osteoarthritis (OA) Sister(s) Family Medical History: Cancer Additional Family Medical History / Comment(s): breast cancer Father Family Medical History: No Reported History Brother(s) Family Medical History: Osteoarthritis (OA) Daughter(s) Family Medical History: No Reported History Son(s) Family Medical History: No Reported History Medications and Allergies Home Medications Medication Instructions Recorded Confirmed Type Famotidine [Pepcid] 20 mg PO DAILY 02/26/20 10/23/23 History Atorvastatin [Lipitor] 40 mg PO DAILY 01/03/23 10/23/23 History Cholecalciferol [Vitamin D3 (25 25 mcg PO DAILY 01/03/23 10/23/23 History Mcg = 1000 Iu)] Clopidogrel [Plavix] 75 mg PO DAILY 01/03/23 10/23/23 History Metoprolol Succinate [Toprol XL] 50 mg PO DAILY 01/03/23 10/23/23 History calcitrioL [Calcitriol] 0.25 mcg PO MOWEFR 01/03/23 10/23/23 History amLODIPine [Norvasc] 10 mg PO DAILY #30 tab 01/04/23 10/23/23 Rx Aspirin EC [Ecotrin Low Dose] 81 mg PO DAILY 02/13/23 10/23/23 History ALPRAZolam [Xanax] 0.125 mg PO BID PRN 10/23/23 10/23/23 History FLUoxetine HCL 20 mg PO BID 10/23/23 10/23/23 History Folic Acid/Vit B Complex and C 0.8 mg PO DAILY 10/23/23 10/23/23 History [Nephro-Trang Tablet] Magnesium Oxide [Mag-Ox] 400 mg PO HS 10/23/23 10/23/23 History Megestrol [Megace] 40 mg PO DAILY 10/23/23 10/23/23 History Ondansetron Odt [Zofran ODT] 4 mg PO DAILY 10/23/23 10/23/23 History Ondansetron Odt [Zofran ODT] 4 mg PO Q6H PRN 10/23/23 10/23/23 History Pantoprazole [Protonix] 40 mg PO BID 10/23/23 10/23/23 History Potassium Chloride ER [K-Dur 10] 10 meq PO DAILY 10/23/23 10/23/23 History bisacodyL [Dulcolax] 10 mg PO HS 10/23/23 10/23/23 History buPROPion XL [Wellbutrin XL] 150 mg PO HS 10/23/23 10/23/23 History Allergies Allergy/AdvReac Type Severity Reaction Status Date / Time celecoxib [From Celebrex] Allergy Rash/Hives Verified 10/23/23 12:34 cephalexin [From Keflex] Allergy Unknown Verified 10/23/23 12:34 nitrofurantoin Allergy Rash all Verified 10/23/23 12:34 [From Macrobid] over nitrofurantoin Allergy Rash all Verified 10/23/23 12:34 macrocrystalline over [From Macrobid] sulfamethoxazole Allergy Face Verified 10/23/23 12:34 [From Bactrim] swelling trimethoprim [From Bactrim] Allergy Face Verified 10/23/23 12:34 swelling Physical Exam Vitals: Vital Signs Temp Pulse Pulse Resp BP BP Pulse Ox 10/28/23 12:15 97.4 F L 86 16 113/77 97 10/28/23 12:09 97.4 F L 86 16 113/77 97 10/28/23 07:11 97.2 F L 76 14 117/76 93 L 10/28/23 06:22 97.6 F 73 119/69 96 10/28/23 01:59 97.7 F 74 119/72 95 10/28/23 00:47 97.7 F 72 16 117/70 97 10/27/23 21:46 97.6 F 79 127/79 95 10/27/23 19:55 97.8 F 74 15 112/72 95 10/27/23 15:08 97.7 F 76 18 118/71 95 Intake and Output 10/27/23 10/28/23 10/28/23 22:59 06:59 14:59 Other: # Voids 2 # Bowel Movements 2 GENERAL DESCRIPTION: Elderly female lying in bed, no distress. No tachypnea or accessory muscle of respiration use. HEENT: Shows Pallor , no scleral icterus. Oral mucous membrane is dry. No pharyngeal erythema or thrush NECK: Trachea central, no thyromegaly. LUNGS: Unlabored breathing. Clear to auscultation anteriorly. No wheeze or crackle. HEART: S1, S2, regular rate and rhythm. No loud murmur ABDOMEN: Soft, no tenderness , guarding or rigidity, no organomegaly EXTREMITIES: No edema of feet. SKIN: No rash, no masses palpable. NEUROLOGICAL: The patient is awake, alert, oriented x3, mood and affect normal. Results CBC & Chem 7: 10/25/23 03:43 10/29/23 05:52 Labs: Abnormal Lab Results - Last 24 Hours (Table) 10/28/23 Range/Units 07:00 Creatinine 3.3 H (0.6-1.5) mg/dL Est GFR (CKD-EPI) 14 L (>=60) BUN/Creatinine Ratio 3.48 L (12.00-20.00) Ratio Microbiology - Last 24 Hours (Table) 10/24/23 01:11 Gram Stain - Final Peritoneal Fluid Body Fluid Culture - Final Assessment and Plan (1) Infection due to ESBL-producing Escherichia coli Status: Acute Code(s): A49.8 - OTHER BACTERIAL INFECTIONS OF UNSPECIFIED SITE; Z16.12 - EXTENDED SPECTRUM BETA LACTAMASE (ESBL) RESISTANCE SNOMED Code(s): 544486403 (2) UTI (urinary tract infection) Status: Acute Code(s): N39.0 - URINARY TRACT INFECTION, SITE NOT SPECIFIED SNOMED Code(s): 54187293 Plan: 1-patient presented to hospital initially for evaluation of nausea weakness and decreased oral intake which is likely multifactorial possibly metabolic or GI issue patient also noticed to have a positive UA and this patient still makes some urine however did not have significant urinary symptoms clinic suspicious we will go for symptomatic UTI with pyelonephritis, with the urine culture now growing ESBL E. coli 2-patient with multiple antibiotic ALLERGIES that would limit the number of antibiotic safe to use 3-we will request for clean-catch urine sample if positive may continue antibiotics if negative will recommend discontinuation of antibiotic We will follow on clinical condition and cultures to further adjust medication if needed Thank you for this consultation we will follow the patient along with you Dictation was produced using [employer] dictation software. please excuse any grammatical, word or spelling errors. Time with Patient: Greater than 30
[2023-10-29] MEDS: DIALYSIS (PERIT 1.5%) 2,500 ML 30 G/2,000 ML BAG INTRAPERIT SCH ×5 (00:28→18:18)
[2023-10-29 01:37] LABS: Appearance,Urine Cloudy (Clear); Bacteria,Urine Occasional /hpf; Bilirubin,Urine Negative (Negative); Blood,Urine Small (Negative); Color,Urine Yellow; Glucose,Urine (UA) Negative (Negative); Hyaline Casts,Urine 30 /lpf (0-2); Ketones,Urine Negative (Negative); Leukocyte Esterase,Urine Large (Negative); Mucus,Urine Occasional /hpf; Nitrite,Urine Negative (Negative); PH, Urine 5.5 (5.0-8.0); Protein,Urine 1+ (Negative); RBC,Urine 3 /hpf (0-5); Specific Gravity,Urine 1.019 (1.001-1.035); Squamous Epithelial Cell,Urine 15 /hpf (0-4); WBC,Urine 18 /hpf (0-5)
[2023-10-29] MEDS: SODIUM CHLORIDE 0.9% 1,000 ML IV SCH ×2 (05:05→21:31)
[2023-10-29] MEDS: PANTOPRAZOLE 40 MG TABLET PO SCH ×2 (06:41→18:18)
[2023-10-29] MEDS: amLODIPine 10 MG TAB PO SCH (08:57)
[2023-10-29] MEDS: POTASSIUM CHLORIDE ER 10 MEQ TAB.ER.PRT PO SCH (08:57)
[2023-10-29] MEDS: FAMOTIDINE 20 MG TAB PO SCH (08:57)
[2023-10-29] MEDS: ASPIRIN 81 MG PO SCH (08:57)
[2023-10-29] MEDS: CHOLECALCIFEROL 25 MCG (1000 IU) TABLET PO SCH (08:57)
[2023-10-29] MEDS: ATORVASTATIN 40 MG TAB PO SCH (08:57)
[2023-10-29] MEDS: METOPROLOL SUCCINATE (ER) 50 MG TAB.ER.24H PO SCH (08:57)
[2023-10-29] MEDS: FOLIC ACID-VIT B COMPLEX-VIT C 1 CAP PO SCH (08:57)
[2023-10-29] MEDS: CLOPIDOGREL 75 MG TAB PO SCH (08:57)
[2023-10-29] MEDS: HEPARIN SODIUM,PORCINE 5,000 UNIT/ML 1 ML VIAL SQ SCH ×2 (08:58→21:31)
[2023-10-29 09:05] LABS: BUN/Creat Ratio 3.69 Ratio (12.00-20.00); Blood Urea Nitrogen 12.9 mg/dL (9.0-27.0); Calcium 8.9 mg/dL (8.7-10.3); Carbon Dioxide 28.4 mmol/L (21.6-31.8); Chloride 102 mmol/L (96-109); Glucose 71 mg/dL (70-110); Magnesium 2.1 mg/dL (1.5-2.4); Potassium 3.5 mmol/L (3.5-5.5); Sodium 135 mmol/L (135-145)
[2023-10-29] MEDS: DIALYSIS (PERIT 1.5%) 2,000 ML 30 G/2,000 ML BAG INTRAPERIT SCH (09:11)
[2023-10-29] MEDS ORDERED: POTASSIUM CHLORIDE ER 20 MEQ TAB.ER PO STA (11:27)
--- NOTE | 2023-10-29 11:28 | P.PN ---
Subjective Patient is seen in follow-up for end-stage renal disease. Maintain on peritoneal dialysis. Underwent EGD 10/27/23 that showed gastritis. No problems with PD exchanges. No active complaints at this time. Vital signs are stable. General: NAD. HEENT: Head exam is unremarkable. LUNGS: No audible rhonhci or wheezes. HEART: Rate and Rhythm are regular. ABDOMEN: Nontender. EXTREMITITES: No edema. Objective - Vital Signs Vital signs: Vital Signs Temp 97.7 F 10/29/23 07:05 Pulse 69 10/29/23 07:05 Resp 15 10/29/23 07:05 BP 99/61 10/29/23 07:05 Pulse Ox 95 10/29/23 09:34 FiO2 Intake & Output 10/28/23 10/29/23 10/29/23 18:59 06:59 18:59 Weight 44.906 kg Other: Voiding Method Bedside Commode # Voids 2 1 - Labs CBC & Chem 7: 10/25/23 03:43 10/29/23 05:52 Labs: Abnormal Lab Results - Last 24 Hours (Table) 10/28/23 10/28/23 10/29/23 Range/Units 07:00 22:25 05:52 Creatinine 3.3 H 3.5 H (0.6-1.5) mg/dL Est GFR (CKD-EPI) 14 L 13 L (>=60) BUN/Creatinine Ratio 3.48 L 3.69 L (12.00-20.00) Ratio Urine Appearance Cloudy H (Clear) Urine Protein 1+ H (Negative) Urine Blood Small H (Negative) Ur Leukocyte Esterase Large H (Negative) Urine WBC 18 H (0-5) /hpf Ur Squamous Epith Cells 15 H (0-4) /hpf Urine Bacteria Occasional H (None) /hpf Hyaline Casts 30 H (0-2) /lpf Urine Mucus Occasional H (None) /hpf Microbiology - Last 24 Hours (Table) 10/24/23 01:11 Gram Stain - Final Peritoneal Fluid Body Fluid Culture - Final Assessment and Plan Plan: Assessment: 1. End-stage renal disease maintained on peritoneal dialysis. 2. Hypokalemia from poor intake and PD losses. Replaced. 3. Dysphagia status post EGD which showed diffuse gastritis and small to moderate hiatal hernia. 4. E. coli UTI on antibiotics. Dialysate fluid nucleated cells 2. ID and urology following. 5. Hepatic steatosis, questionable cirrhosis. 6. Chronic kidney disease mineral bone disease maintained on calcitriol and PhosLo. 7. Coronary artery disease. 8. Hypertension with chronic kidney disease. Blood pressure on the lower side. Plan: Maintain current PD exchanges. Replace potassium. Phosphorus level 2.2 dated 10/27/2023. PhosLo was discontinued. Repeat level. Encouraged oral intake. Decrease dose of amlodipine to 5 mg and hold for systolic blood pressure less than 120. Urology and ID will be consulted due to recurrent UTIs. Case discussed with primary team.
[2023-10-29] MEDS: ERTAPENEM 0.5 GM in SODIUM CHLORIDE 0.9% 50 ML IVPB SCH (12:18)
--- NOTE | 2023-10-29 12:19 | P.GSCN ---
History of Present Illness Consult date: 10/28/23 Reason for Consult: Recurrent UTI Requesting physician: Nilay Freeman History of present illness: The patient is an 78-year-old white female with end-stage renal disease. She has done home CAPD since March 2023. She voids 2-3 times daily, small volume. She has been treated for 2-3 UTIs in the past year. Her most common UTI symptoms dysuria, though she has not recently experienced dysuria. Per her , she does occasionally show signs of confusion associated with a UTI. Review of Systems - Constitutional Reports poor appetite, Reports weakness, Denies chills, Denies fever - Genitourinary Genitourinary: Denies dysuria, Denies hematuria - Psychiatric Reports confusion Past Medical History Past Medical History: Heart Failure, Eye Disorder, GI Bleed, Hyperlipidemia, Hypertension, Myocardial Infarction (IA), Musculoskeletal Disorder, Osteoarthr itis (OA), Renal Disease Additional Past Medical History / Comment(s): Chronic anemia-iron deficiency, chronic kidney disease stage V, diverticular disease, osteoporosis; cataracts with lens replacement Last Myocardial Infarction Date:: 11/27/22 History of Any Multi-Drug Resistant Organisms: ESBL Year Discovered:: 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 Source:: Urine Past Surgical History: Heart Catheterization With Stent, Orthopedic Surgery, Tonsillectomy, Tubal Ligation Additional Past Surgical History / Comment(s): removal ovary, bilateral cataract removal with lens implant, cervical spinal fusion, cervical steroid injection Past Anesthesia/Blood Transfusion Reactions: No Reported Reaction Date of Last Stent Placement:: 11/27/22 Past Psychological History: Anxiety Smoking Status: Former smoker Past Alcohol Use History: Occasional Past Drug Use History: None Reported - Past Family History Mother Family Medical History: Osteoarthritis (OA) Sister(s) Family Medical History: Cancer Additional Family Medical History / Comment(s): breast cancer Father Family Medical History: No Reported History Brother(s) Family Medical History: Osteoarthritis (OA) Daughter(s) Family Medical History: No Reported History Son(s) Family Medical History: No Reported History Medications and Allergies Home Medications Medication Instructions Recorded Confirmed Type Famotidine [Pepcid] 20 mg PO DAILY 02/26/20 10/23/23 History Atorvastatin [Lipitor] 40 mg PO DAILY 01/03/23 10/23/23 History Cholecalciferol [Vitamin D3 (25 25 mcg PO DAILY 01/03/23 10/23/23 History Mcg = 1000 Iu)] Clopidogrel [Plavix] 75 mg PO DAILY 01/03/23 10/23/23 History Metoprolol Succinate [Toprol XL] 50 mg PO DAILY 01/03/23 10/23/23 History calcitrioL [Calcitriol] 0.25 mcg PO MOWEFR 01/03/23 10/23/23 History amLODIPine [Norvasc] 10 mg PO DAILY #30 tab 01/04/23 10/23/23 Rx Aspirin EC [Ecotrin Low Dose] 81 mg PO DAILY 02/13/23 10/23/23 History ALPRAZolam [Xanax] 0.125 mg PO BID PRN 10/23/23 10/23/23 History Bumetanide [BUMEX] 2 mg PO DAILY 10/23/23 10/23/23 History Calcium Acetate [Phoslo] 1,334 mg PO TID-W/MEALS 10/23/23 10/23/23 History FLUoxetine HCL 20 mg PO BID 10/23/23 10/23/23 History Folic Acid/Vit B Complex and C 0.8 mg PO DAILY 10/23/23 10/23/23 History [Nephro-Trang Tablet] Magnesium Oxide [Mag-Ox] 400 mg PO HS 10/23/23 10/23/23 History Megestrol [Megace] 40 mg PO DAILY 10/23/23 10/23/23 History Ondansetron Odt [Zofran Odt] 4 mg PO DAILY 10/23/23 10/23/23 History Ondansetron Odt [Zofran Odt] 4 mg PO Q6H PRN 10/23/23 10/23/23 History Pantoprazole [Protonix] 40 mg PO BID 10/23/23 10/23/23 History Potassium Chloride ER [K-Dur 10] 10 meq PO DAILY 10/23/23 10/23/23 History bisacodyL [Dulcolax] 10 mg PO HS 10/23/23 10/23/23 History buPROPion XL [Wellbutrin XL] 150 mg PO HS 10/23/23 10/23/23 History Allergies Allergy/AdvReac Type Severity Reaction Status Date / Time celecoxib [From Celebrex] Allergy Rash/Hives Verified 10/23/23 12:34 cephalexin [From Keflex] Allergy Unknown Verified 10/23/23 12:34 nitrofurantoin Allergy Rash all Verified 10/23/23 12:34 [From Macrobid] over nitrofurantoin Allergy Rash all Verified 10/23/23 12:34 macrocrystalline over [From Macrobid] sulfamethoxazole Allergy Face Verified 10/23/23 12:34 [From Bactrim] swelling trimethoprim [From Bactrim] Allergy Face Verified 10/23/23 12:34 swelling Surgical - Exam Vital Signs Temp Pulse Resp BP Pulse Ox 97.3 F L 80 18 110/70 99 10/23/23 08:57 10/23/23 08:57 10/23/23 08:57 10/23/23 08:57 10/23/23 08:57 - General well developed, well nourished, no distress - Respiratory normal respiratory effort - Abdomen Abdomen: soft, non tender, no guarding, no rigid, no rebound - Psychiatric oriented to time, oriented to person, oriented to place, speech is normal, memory intact Results - Labs 10/25/23 03:43 10/28/23 07:00 Abnormal Lab Results - Last 24 Hours (Table) 10/28/23 Range/Units 07:00 Creatinine 3.3 H (0.6-1.5) mg/dL Est GFR (CKD-EPI) 14 L (>=60) BUN/Creatinine Ratio 3.48 L (12.00-20.00) Ratio Microbiology - Last 24 Hours (Table) 10/24/23 01:11 Gram Stain - Final Peritoneal Fluid Body Fluid Culture - Final Diabetes panel 10/28/23 Range/Units 07:00 Sodium 135 (135-145) mmol/L Potassium 3.7 (3.5-5.5) mmol/L Chloride 103 (96-109) mmol/L Carbon Dioxide 27.3 (21.6-31.8) mmol/L BUN 11.5 (9.0-27.0) mg/dL Creatinine 3.3 H (0.6-1.5) mg/dL Glucose 79 (70-110) mg/dL Calcium 9.1 (8.7-10.3) mg/dL Calcium panel 01/16/24 Range/Units 07:00 Calcium 9.1 (8.7-10.3) mg/dL Pituitary panel 10/28/23 Range/Units 07:00 Sodium 135 (135-145) mmol/L Potassium 3.7 (3.5-5.5) mmol/L Chloride 103 (96-109) mmol/L Carbon Dioxide 27.3 (21.6-31.8) mmol/L BUN 11.5 (9.0-27.0) mg/dL Creatinine 3.3 H (0.6-1.5) mg/dL Glucose 79 (70-110) mg/dL Calcium 9.1 (8.7-10.3) mg/dL Adrenal panel 10/28/23 Range/Units 07:00 Sodium 135 (135-145) mmol/L Potassium 3.7 (3.5-5.5) mmol/L Chloride 103 (96-109) mmol/L Carbon Dioxide 27.3 (21.6-31.8) mmol/L BUN 11.5 (9.0-27.0) mg/dL Creatinine 3.3 H (0.6-1.5) mg/dL Glucose 79 (70-110) mg/dL Calcium 9.1 (8.7-10.3) mg/dL - Imaging CT scan - abdomen: report reviewed, image reviewed Assessment and Plan (1) Chronic cystitis without hematuria Current Visit: Yes Status: Acute Code(s): N30.20 - OTHER CHRONIC CYSTITIS WITHOUT HEMATURIA SNOMED Code(s): 20957681 Plan: I had a lengthy discussion with the patient and her regarding her recurrent UTIs. Her low urine output predisposes her to cystitis. It is unclear whether or not she empties her bladder. It is also unclear whether or not her infections are always of the same organism or not, as I do not have any other urine cultures from the past 2 years available for review. A recent CT scan shows bilateral small renal cysts, most of which are simple but some appear to be hyperdense. There is no evidence of hydronephrosis or urolithiasis. We discussed strategies for UTI prevention. I would prefer not to use estrogen v aginal cream given her history of breast cancer. Cranberry supplements and Hiprex are likely not to be beneficial given that she is on dialysis. We discussed performing bladder scan to check the postvoid residual, but this will be falsely elevated because of the peritoneal dialysis. Therefore, I will ask that she be straight catheterized to check the postvoid residual, and I will attempt to obtain additional urine culture results. I did explain to them that she should only be treated for UTIs when symptomatic (ie, treatment of asymptomatic bacteriuria is not recommended). Time with Patient: Greater than 30
--- NOTE | 2023-10-29 12:21 | P.PN ---
Subjective Progress Note Date: 10/29/23 Principal diagnosis: Recurrent UTI Patient has been treated for recurrent UTIs. She currently denies dysuria. Objective - Vital Signs Vital signs: Vital Signs Temp 97.7 F 10/29/23 07:05 Pulse 69 10/29/23 07:05 Resp 15 10/29/23 07:05 BP 99/61 10/29/23 07:05 Pulse Ox 95 10/29/23 09:34 FiO2 Intake & Output 10/28/23 10/29/23 10/29/23 18:59 06:59 18:59 Weight 44.906 kg Other: Voiding Method Bedside Commode # Voids 2 1 - Constitutional General appearance: Present: average body habitus, cooperative, no acute distress - Psychiatric Psychiatric: Present: A&O x's 3 - Labs CBC & Chem 7: 10/25/23 03:43 10/29/23 05:52 Labs: Abnormal Lab Results - Last 24 Hours (Table) 10/28/23 10/29/23 Range/Units 22:25 05:52 Creatinine 3.5 H (0.6-1.5) mg/dL Est GFR (CKD-EPI) 13 L (>=60) BUN/Creatinine Ratio 3.69 L (12.00-20.00) Ratio Urine Appearance Cloudy H (Clear) Urine Protein 1+ H (Negative) Urine Blood Small H (Negative) Ur Leukocyte Esterase Large H (Negative) Urine WBC 18 H (0-5) /hpf Ur Squamous Epith Cells 15 H (0-4) /hpf Urine Bacteria Occasional H (None) /hpf Hyaline Casts 30 H (0-2) /lpf Urine Mucus Occasional H (None) /hpf Microbiology - Last 24 Hours (Table) 10/24/23 01:11 Gram Stain - Final Peritoneal Fluid Body Fluid Culture - Final Assessment and Plan (1) Chronic cystitis without hematuria Current Visit: Yes Status: Acute Code(s): N30.20 - OTHER CHRONIC CYSTITIS WITHOUT HEMATURIA SNOMED Code(s): 68830330 Plan: - Straight cath to check postvoid residual. - We will attempt to obtain urine culture results from the past 2 years.
--- NOTE | 2023-10-29 12:30 | P.PN ---
Subjective Progress Note Date: 10/29/23 Principal diagnosis: Reason for follow-up visit ESBL E. coli UTI Patient is a 78-year-old female with a past medical history significant for hypertension hyperlipidemia [place] heart failure also have a history of end-stage renal disease on peritoneal dialysis patient presented to the hospital for evaluation of weakness nausea and decreased oral intake patient noticed to have a positive UA urine culture finalized with ESBL E. coli prompting this infectious disease consultation. On today's evaluation that is 10/29/2023, the patient continues to be afebrile patient is breathing comfortably on room air, no need for supplemental oxygen, patient denies any chest pain or cough no nausea no vomiting and no diarrhea has been reported. Patient creatinine 3 point 5 repeat UA is mildly positive Objective - Vital Signs Vital signs: Vital Signs Temp 97.7 F 10/29/23 07:05 Pulse 69 10/29/23 07:05 Resp 15 10/29/23 07:05 BP 99/61 10/29/23 07:05 Pulse Ox 95 10/29/23 09:34 FiO2 Intake & Output 10/28/23 10/29/23 10/29/23 18:59 06:59 18:59 Weight 44.906 kg Other: # Voids 2 1 - Exam GENERAL DESCRIPTION: An elderly female lying in bed in no distress RESPIRATORY SYSTEM: Unlabored breathing , decreased breath sounds at bases HEART: S1 S2 regular rate and rhythm , ABDOMEN: Soft , no tenderness EXTREMITIES: No edema feet - Labs CBC & Chem 7: 10/25/23 03:43 10/29/23 05:52 Labs: Abnormal Lab Results - Last 24 Hours (Table) 10/28/23 10/28/23 10/29/23 Range/Units 07:00 22:25 05:52 Creatinine 3.3 H 3.5 H (0.6-1.5) mg/dL Est GFR (CKD-EPI) 14 L 13 L (>=60) BUN/Creatinine Ratio 3.48 L 3.69 L (12.00-20.00) Ratio Urine Appearance Cloudy H (Clear) Urine Protein 1+ H (Negative) Urine Blood Small H (Negative) Ur Leukocyte Esterase Large H (Negative) Urine WBC 18 H (0-5) /hpf Ur Squamous Epith Cells 15 H (0-4) /hpf Urine Bacteria Occasional H (None) /hpf Hyaline Casts 30 H (0-2) /lpf Urine Mucus Occasional H (None) /hpf Microbiology - Last 24 Hours (Table) 10/24/23 01:11 Gram Stain - Final Peritoneal Fluid Body Fluid Culture - Final Assessment and Plan (1) Infection due to ESBL-producing Escherichia coli Current Visit: Yes Status: Acute Code(s): A49.8 - OTHER BACTERIAL INFECTIONS OF UNSPECIFIED SITE; Z16.12 - EXTENDED SPECTRUM BETA LACTAMASE (ESBL) RESISTANCE SNOMED Code(s): 568090425 (2) Allergy to multiple antibiotics Current Visit: Yes Status: Acute Code(s): Z88.1 - ALLERGY STATUS TO OTHER ANTIBIOTIC AGENTS SNOMED Code(s): 635118142 (3) UTI (urinary tract infection) Current Visit: Yes Status: Acute Code(s): N39.0 - URINARY TRACT INFECTION, SITE NOT SPECIFIED SNOMED Code(s): 67331799 Plan: 1-patient presented to hospital initially for evaluation of nausea weakness and decreased oral intake which is likely multifactorial possibly metabolic or GI issue patient also noticed to have a positive UA and this patient still makes some urine however did not have significant urinary symptoms clinic suspicious we will go for symptomatic UTI with pyelonephritis, with the urine culture now growing ESBL E. coli 2-patient with multiple antibiotic ALLERGIES that would limit the number of antibiotic safe to use 3-patient did have repeat UA that is mildly positive patient has been started on Invanz to continue short course and monitor clinical course closely Dictation was produced using [employer] dictation software. please excuse any grammatical, word or spelling errors. Time with Patient: Less than 30
--- NOTE | 2023-10-29 14:17 | P.PN ---
Subjective Progress Note Date: 10/29/23 Patient is an 78-year-old female peritoneal dialysis with history of systolic ischemic cardiomyopathy last known ejection fraction 35%, hypertension, dyslipidemia, coronary artery disease status post PCI, and multiple other comorbid conditions who presented to the ER due to increasing weakness, fatigue, and loss of appetite. On arrival to the ER her vital signs were within normal limits. Initial laboratory analysis included CBC, coags, CMP which were remarkable for sodium 131, potassium 3.3, BUN 33, creatinine 6.78, AST 121, ALT 66. Urinalysis was consistent with UTI and she was started on Levaquin. Influenza A/B/RSV/COVID-19 testing was negative. Arrangements were made for admission. Nephrology was consulted. She underwent CT abdomen and pelvis which demonstrated moderate size hiatal hernia with retained contrast in the esophagus from reflux or dysmotility as well as a thickened appearance of the wall within the hernia of the proximal stomach concerning for pathologic thickening, there is moderate stool throughout the colon and bilateral renal nodules. Dietary was consulted. Calorie count was started. GI consulted, EGD showed diffuse gastritis, small to moderate size hiatal hernia, no evidence of esophageal strictures, biopsies were done. Brain MRI and EEG did not show any acute process. Due to recurrent urinary tract infection, ID and urology also consulted. Repeat urinalysis was contaminated. Pending another repeat urinalysis after straight cath. Likely only need another dose of ertapenem prior to discharge tomorrow with home care. Patient seen and examined at bedside. She denies any abdominal discomfort. Nausea has improved. Patient able to eat, but still not consuming 100% of her meals. She is having difficulty with ambulating, requires 1 person assist with transferring out of bed as well as with ambulation. Denies any urinary complaints at the moment. Vital signs reviewed General: Nontoxic, no distress, appears at stated age, temporal wasting Cardiovascular: S1S2 reg, no murmur, positive posterior tibial pulse bilateral, Lungs: Decreased breath sounds bilateral, no rhonchi, no rales, no accessory muscle use Abdominal: Soft, nontender to palpation, no guarding, no appreciable organomegaly Ext: No gross muscle atrophy, no edema b/l lower extremities, no contractures Neuro: CN II-XI grossly intact, no focal neuro deficits Psych: Alert, oriented, appropriate affect Assessment/Plan: Acute metabolic encephalopathy, resolving Recurrent MDRO urinary tract infection versus chronic cystitis Generalized weakness and debility Nausea and vomiting, resolving Constipation, resolved Hepatic steatosis with chronically elevated liver enzymes , suspected liver cirrhosis History of alcohol dependence Severe protein calorie malnutrition with cachexia Hiatal hernia with thicked proximal stomach Gastritis Renal cysts, bilateral -Discussed management with neurology, no further changes -GI recommending outpatient follow-up - lactulose 20 mg PO as needed for constipation -PT/OT -Fall precautions -Ertapenem 500 mg IV piggyback daily based on patient's prior history of ESBL x 2 in the urine, urine positive for gram-negative bacilli -Discussed management with ID, another dose of ertapenem tomorrow and then patient can be discharged home ESRD on PD Hypokalemia, resolved - nephrology note reviewed, continue current management, amlodipine decreased to 5 mg -phoslo discontinued -Calcitriol 0.25 mcg Friday, Friday, Friday, vitamin D 25 mg daily Compensated systolic cardiomyopathy with ejection fraction 35% Hypertension Dyslipidemia Coronary artery disease -Norvasc 5 mg daily, metoprolol 50 mg daily -restarted Aspirin 81 mg daily-Plavix 75 mg daily -Lipitor 40 mg daily -Hold Bumex due to patient appearing hypovolemic Chronic: Prior GI bleed Cataract disease Diverticular disease Iron deficiency anemia Osteoarthritis History of ESBL Imaging: CT abdomen and pelvis which demonstrated moderate size hiatal hernia with retained contrast in the esophagus from reflux or dysmotility as well as a thickened appearance of the wall within the hernia of the proximal stomach concerning for pathologic thickening, there is moderate stool throughout the colon and bilateral renal nodules. Data Review: Sodium 135, potassium 3.5, creatinine 3.5, magnesium 2.1 DVT prophylaxis: Heparin Anticipated discharge date: Tomorrow Anticipated discharge place: home with home care Objective - Vital Signs Vital signs: Vital Signs Temp 97.7 F 10/29/23 07:05 Pulse 69 10/29/23 07:05 Resp 15 10/29/23 07:05 BP 99/61 10/29/23 07:05 Pulse Ox 95 10/29/23 09:34 FiO2 Intake & Output 10/28/23 10/29/23 10/29/23 18:59 06:59 18:59 Weight 44.906 kg Other: Voiding Method Bedside Commode # Voids 2 1 - Labs CBC & Chem 7: 10/25/23 03:43 10/29/23 05:52 Labs: Abnormal Lab Results - Last 24 Hours (Table) 10/28/23 10/29/23 Range/Units 22:25 05:52 Creatinine 3.5 H (0.6-1.5) mg/dL Est GFR (CKD-EPI) 13 L (>=60) BUN/Creatinine Ratio 3.69 L (12.00-20.00) Ratio Urine Appearance Cloudy H (Clear) Urine Protein 1+ H (Negative) Urine Blood Small H (Negative) Ur Leukocyte Esterase Large H (Negative) Urine WBC 18 H (0-5) /hpf Ur Squamous Epith Cells 15 H (0-4) /hpf Urine Bacteria Occasional H (None) /hpf Hyaline Casts 30 H (0-2) /lpf Urine Mucus Occasional H (None) /hpf
--- NOTE | 2023-10-29 15:06 | P.PN ---
Subjective Progress Note Date: 10/29/23 Principal diagnosis: Nausea and vomiting This a pleasant 78-year-old female who presented to the emergency department for generalized weakness, altered mental status changes, and nausea and vomiting. Past medical history includes end-stage renal disease on peritoneal dialysis, history of systolic ischemic cardiomyopathy, hypertension, dyslipidemia, coronary artery disease status post PCI in multiple other comorbidities. Patient states that she's had a decreased appetite and weight loss over the last several months. She states that she will get nauseated and gagging when she eats. She has no difficulty with keeping liquids in. States she is eating. Little. She was admitted to the hospital for generalized weakness, hypokalemia, urinary tract infection and altered mental status changes. She had a CT of the abdomen that reported a moderate sized hiatal hernia with retained contrast in the esophagus and thickened appearance of the wall within the hernia and proximal stomach. Gastroenterology was consulted for nausea and vomiting and possible endoscopic evaluation. She does have a history of previous GI bleed and underwent an EGD on 02/27/[address] Handley with findings of nonbleeding antral ulcer, mild antral gastritis and a patent distal esophageal Schatzki's ring. She also underwent a colonoscopy during that same hospitalization on 02/29/2020 with findings of a normal colon, moderate left colonic diverticulosis and low-grade internal hemorrhoids. She denies any abdominal pain, no epigastric pain, no chest pain, shortness of breath. She was also noted to have moderate amount of stool on CT and abdominal x-ray. Also noted was a cirrhotic liver with moderate ascites. Patient does admit to drinking 2-3 vodka drinks 3-4 days a week for many years. No known history of cirrhosis of the liver. 10/28/2023 Patient seen and examined today as a follow-up. Yesterday she went for EGD with findings of diffuse gastritis, small to moderate size hiatal hernia but no evidence of esophageal stricture. She is currently sitting up in bed. States that she had no difficulty with eating dinner or breakfast and that she is eating better. Denies any nausea or vomiting. 1723 Patient seen and examined today as a follow-up. She is resting comfortably. States she ate yesterday without any problems. She has not had breakfast yet this morning but denies any abdominal pain, nausea or vomiting. Objective - Vital Signs Vital signs: Vital Signs Temp 97.8 F 10/29/23 13:20 Pulse 75 10/29/23 13:20 Resp 16 10/29/23 13:20 BP 102/60 10/29/23 13:20 Pulse Ox 93 L 10/29/23 13:20 FiO2 Intake & Output 10/28/23 10/29/23 10/29/23 18:59 06:59 18:59 Weight 44.906 kg Other: Voiding Method Bedside Commode # Voids 2 1 - Exam General appearance: The patient is alert, oriented, appears in no acute distress. HET: Head is normocephalic and atraumatic. Conjunctiva pink. Sclera anicteric. Neck: Supple without lymphadenopathy. Abdomen: Soft, nontender, nondistended with bowel sounds. No guarding or rigidity. Extremities: Normal skin color and turgor. No pedal edema Skin: No rashes, no jaundice Neurological: No focal deficits. Alert and oriented. - Labs CBC & Chem 7: 10/25/23 03:43 10/29/23 05:52 Labs: Abnormal Lab Results - Last 24 Hours (Table) 10/28/23 10/29/23 Range/Units 22:25 05:52 Creatinine 3.5 H (0.6-1.5) mg/dL Est GFR (CKD-EPI) 13 L (>=60) BUN/Creatinine Ratio 3.69 L (12.00-20.00) Ratio Urine Appearance Cloudy H (Clear) Urine Protein 1+ H (Negative) Urine Blood Small H (Negative) Ur Leukocyte Esterase Large H (Negative) Urine WBC 18 H (0-5) /hpf Ur Squamous Epith Cells 15 H (0-4) /hpf Urine Bacteria Occasional H (None) /hpf Hyaline Casts 30 H (0-2) /lpf Urine Mucus Occasional H (None) /hpf Assessment and Plan (1) Nausea and vomiting Narrative/Plan: 78-year-old female presented for altered mental status changes weakness and nausea and vomiting. Patient states nausea and vomiting has been ongoing for last several months with weight loss. Mostly due to when she swallows she feels that she has to gag and then she will vomit. She states she has little appetite. She has no difficulty with liquids. Last EGD was done 3 years ago with findings of nonbleeding antral ulcer, mild antral gastritis and patent distal esophageal Schatzki's ring. She underwent CT abdomen and pelvis with findings of a moderate hiatal hernia and thickening. Unclear etiology of thickening therefore will proceed with upper endoscopy today. 10/28/2023 patient is status post EGD without any findings of stricture, diffuse gastritis and small to moderate-sized hiatal hernia. No complaints of difficulty swallowing today nausea or vomiting. States she is eating better. We'll continue with protonic 40 mg daily and recommend discharge home on that. Patient to follow-up with gastroenterology for biopsy results. Current Visit: Yes Status: Acute Code(s): R11.2 - NAUSEA WITH VOMITING, UNSPECIFIED SNOMED Code(s): 85606542 (2) Cirrhosis of liver Narrative/Plan: Seen on CT of the abdomen. Cirrhotic liver with ascites. Likely secondary to long history of alcohol use. Patient admits to drinking 2-3 vodka drinks at least 3-4 times a week. Current Visit: Yes Status: Acute Code(s): K74.60 - UNSPECIFIED CIRRHOSIS OF LIVER SNOMED Code(s): 21954414 (3) Unintentional weight loss Current Visit: Yes Status: Acute Code(s): R63.4 - ABNORMAL WEIGHT LOSS SNOMED Code(s): 082096696 (4) Altered mental status Current Visit: Yes Status: Acute Code(s): R41.82 - ALTERED MENTAL STATUS, UNSPECIFIED SNOMED Code(s): 861026015 (5) Generalized weakness Current Visit: Yes Status: Acute Code(s): R53.1 - WEAKNESS SNOMED Code(s): 73355277 (6) Hypokalemia Current Visit: Yes Status: Acute Code(s): E87.6 - HYPOKALEMIA SNOMED Code(s): 37844040 (7) UTI (urinary tract infection) Current Visit: Yes Status: Acute Code(s): N39.0 - URINARY TRACT INFECTION, SITE NOT SPECIFIED SNOMED Code(s): 88887058 (8) End-stage renal disease on peritoneal dialysis Current Visit: Yes Status: Acute Code(s): N18.6 - END STAGE RENAL DISEASE; Z99.2 - DEPENDENCE ON RENAL DIALYSIS SNOMED Code(s): 937718701 (9) Coronary artery disease Current Visit: Yes Status: Acute Code(s): I25.10 - ATHSCL HEART DISEASE OF [place] CORONARY ARTERY W/O ANG PCTRS SNOMED Code(s): 18721734 (10) Ischemic cardiomyopathy Current Visit: Yes Status: Acute Code(s): I25.5 - ISCHEMIC CARDIOMYOPATHY SNOMED Code(s): 078136074 (11) Ascites Narrative/Plan: Likely secondary from underlying liver disease, long history of alcohol use Current Visit: Yes Status: Acute Code(s): R18.8 - OTHER ASCITES SNOMED Code(s): 291042835 Plan: 1. Continue symptomatic and supportive care 2. Continue Protonix 40 mg daily 3. Patient is status post EGD 4. May resume Plavix 5. Diet as tolerated 6. Recommend alcohol abstinence 7. Recommend outpatient follow-up for liver cirrhosis and biopsy results Thank you for this consultation, patient is cleared from gastroenterology for discharge. We will sign off at this time. Dr. Fuentes Cabrales I agree with the dictator's note, documented as a scribe by Trisha Ashraf.
[2023-10-29] MEDS: buPROPion XL 150 MG TAB.ER.24H PO SCH (21:30)
[2023-10-29] MEDS: FLUoxetine HCL 20 MG CAP PO SCH (21:31)
[2023-10-30] MEDS: DIALYSIS (PERIT 1.5%) 2,500 ML 30 G/2,000 ML BAG INTRAPERIT SCH ×4 (00:46→13:22)
[2023-10-30] MEDS: PANTOPRAZOLE 40 MG TABLET PO SCH (06:43)
[2023-10-30] MEDS: ERTAPENEM 0.5 GM in SODIUM CHLORIDE 0.9% 50 ML IVPB SCH (08:28)
[2023-10-30] MEDS: CHOLECALCIFEROL 25 MCG (1000 IU) TABLET PO SCH (08:29)
[2023-10-30] MEDS: ASPIRIN 81 MG PO SCH (08:29)
[2023-10-30] MEDS: POTASSIUM CHLORIDE ER 10 MEQ TAB.ER.PRT PO SCH (08:29)
[2023-10-30] MEDS: ATORVASTATIN 40 MG TAB PO SCH (08:29)
[2023-10-30] MEDS: HEPARIN SODIUM,PORCINE 5,000 UNIT/ML 1 ML VIAL SQ SCH (08:30)
[2023-10-30] MEDS: CLOPIDOGREL 75 MG TAB PO SCH (08:30)
[2023-10-30] MEDS: METOPROLOL SUCCINATE (ER) 50 MG TAB.ER.24H PO SCH (08:30)
[2023-10-30] MEDS: FOLIC ACID-VIT B COMPLEX-VIT C 1 CAP PO SCH (08:30)
[2023-10-30] MEDS: FAMOTIDINE 20 MG TAB PO SCH (08:30)
[2023-10-30] MEDS ORDERED: amLODIPine 5 MG TAB PO SCH (09:00)
--- NOTE | 2023-10-30 10:50 | P.PN ---
Subjective Progress Note Date: 10/30/23 Principal diagnosis: Recurrent UTI Patient has been treated for recurrent UTIs. She currently denies dysuria. Objective - Vital Signs Vital signs: Vital Signs Temp 97.8 F 10/30/23 07:00 Pulse 76 10/30/23 07:00 Resp 17 10/30/23 07:00 BP 98/66 10/30/23 07:00 Pulse Ox 94 L 10/30/23 07:00 FiO2 Intake & Output 10/29/23 10/30/23 10/30/23 18:59 06:59 18:59 Other: Voiding Method Bedside Commode Bedside Commode # Voids 1 1 # Bowel Movements 1 - Constitutional General appearance: Present: average body habitus, cooperative, no acute distress - Psychiatric Psychiatric: Present: A&O x's 3 - Labs CBC & Chem 7: 10/25/23 03:43 10/29/23 05:52 Assessment and Plan Assessment: The patient was straight catheterized and her postvoid residual was 0. (1) Chronic cystitis without hematuria Current Visit: Yes Status: Acute Code(s): N30.20 - OTHER CHRONIC CYSTITIS WITHOUT HEMATURIA SNOMED Code(s): 26166886 Plan: I am unable to make any recommendations to reduce Mrs. Paiz' UTI risk moving forward. Estrace vaginal cream is contraindicated, and I do not believe that Hiprex will be beneficial given her renal failure. I believe the primary reason for her recurrent UTIs is the fact that she produces a small amount of urine and therefore her bladder is not continually flushed. Some patients will benefit from catheterization and irrigation of their bladder, but I do not believe that she has had enough UTIs where she would feel this is worthwhile.
--- NOTE | 2023-10-30 13:02 | P.PN ---
Subjective Patient is seen in follow-up for end-stage renal disease. Maintain on peritoneal dialysis. Underwent EGD 10/27/23 that showed gastritis. No problems with PD exchanges. No active complaints at this time. Vital signs are stable. General: NAD. HEENT: Head exam is unremarkable. LUNGS: No audible rhonhci or wheezes. HEART: Rate and Rhythm are regular. ABDOMEN: Nontender. EXTREMITITES: No edema. Objective - Vital Signs Vital signs: Vital Signs Temp 97.8 F 10/30/23 07:00 Pulse 76 10/30/23 07:00 Resp 17 10/30/23 07:00 BP 98/66 10/30/23 07:00 Pulse Ox 94 L 10/30/23 07:00 FiO2 Intake & Output 10/29/23 10/30/23 10/30/23 18:59 06:59 18:59 Other: Voiding Method Bedside Commode Bedside Commode # Voids 1 1 # Bowel Movements 1 - Labs CBC & Chem 7: 10/25/23 03:43 10/29/23 05:52 Assessment and Plan Plan: Assessment: 1. End-stage renal disease maintained on peritoneal dialysis. 2. Hypokalemia from poor intake and PD losses. Replaced. 3. Dysphagia status post EGD which showed diffuse gastritis and small to moderate hiatal hernia. 4. E. coli UTI on antibiotics. Dialysate fluid nucleated cells 2. ID and urology following. 5. Hepatic steatosis, questionable cirrhosis. 6. Chronic kidney disease mineral bone disease maintained on calcitriol and PhosLo. 7. Coronary artery disease. 8. Hypertension with chronic kidney disease. Blood pressure on the lower side. Plan: Maintain current PD exchanges. Phosphorus level 2.2 dated 10/27/2023. PhosLo was discontinued. Repeat level 2.7 10/29/2023. Encouraged oral intake. Decreased dose of amlodipine to 5 mg and to hold for systolic blood pressure less than 120. Urology and ID following due to recurrent UTIs. Case discussed with patient and her present at bedside.
[2023-10-30 14:15] VITALS: RESP 18; TEMP 97.3
[2023-10-30 15:02] VITALS: BP 98/60; PULSE 68
--- NOTE | 2023-10-30 15:23 | P.PN ---
Subjective Progress Note Date: 10/30/23 Principal diagnosis: Reason for follow-up visit ESBL E. coli UTI Patient is a 78-year-old female with a past medical history significant for hypertension hyperlipidemia HI heart failure also have a history of end-stage renal disease on peritoneal dialysis patient presented to the hospital for evaluation of weakness nausea and decreased oral intake patient noticed to have a positive UA urine culture finalized with ESBL E. coli prompting this infectious disease consultation. On today's evaluation that is 10/30/2023 the patient denies having any fever or any chills, the patient is breathing comfortably on room air, patient denies chest pain cough, the patient denies having any abdominal pain did have improvement her nausea oral intake has improved and no diarrhea Patient creatinine 3.5 as of 10/29/2023 repeat UA is mildly positive Objective - Vital Signs Vital signs: Vital Signs Temp 97.8 F 10/30/23 07:00 Pulse 76 10/30/23 07:00 Resp 17 10/30/23 07:00 BP 98/66 10/30/23 07:00 Pulse Ox 94 L 10/30/23 07:00 FiO2 Intake & Output 10/29/23 10/30/23 10/30/23 18:59 06:59 18:59 Other: Voiding Method Bedside Commode Bedside Commode # Voids 1 1 # Bowel Movements 1 - Exam GENERAL DESCRIPTION: An elderly female lying in bed in no distress RESPIRATORY SYSTEM: Unlabored breathing , decreased breath sounds at bases HEART: S1 S2 regular rate and rhythm , ABDOMEN: Soft , no tenderness EXTREMITIES: No edema feet - Labs CBC & Chem 7: 10/25/23 03:43 10/29/23 05:52 Assessment and Plan (1) Infection due to ESBL-producing Escherichia coli Current Visit: Yes Status: Acute Code(s): A49.8 - OTHER BACTERIAL INFECTIONS OF UNSPECIFIED SITE; Z16.12 - EXTENDED SPECTRUM BETA LACTAMASE (ESBL) RESISTANCE SNOMED Code(s): 239316718 (2) Allergy to multiple antibiotics Current Visit: Yes Status: Acute Code(s): Z88.1 - ALLERGY STATUS TO OTHER A NTIBIOTIC AGENTS SNOMED Code(s): 981880748 (3) UTI (urinary tract infection) Current Visit: Yes Status: Acute Code(s): N39.0 - URINARY TRACT INFECTION, SITE NOT SPECIFIED SNOMED Code(s): 97971340 Plan: 1-patient presented to hospital initially for evaluation of nausea weakness and decreased oral intake which is likely multifactorial possibly metabolic or GI issue patient also noticed to have a positive UA and this patient still makes some urine however did not have significant urinary symptoms clinic suspicious w e will go for symptomatic UTI with pyelonephritis, with the urine culture now growing ESBL E. coli 2-patient with multiple antibiotic ALLERGIES that would limit the number of antibiotic safe to use 3-patient did have repeat UA that is mildly positive patient seem to have shown clinical improvement to continue with a short course of Invanz and monitor clinical course closely Dictation was produced using [employer] dictation software. please excuse any grammatical, word or spelling errors. Time with Patient: Less than 30
--- NOTE | 2023-10-30 16:31 | P.DS ---
Providers Date of admission: 10/24/23 11:59 Expected date of discharge: 10/30/23 Attending physician: Teressa Corcoran DO Consults: 10/23/23 13:39 Consult Physician Routine Consulting Provider: Julee Whatley Consult Reason/Comments: PD Do you want consulting provider notified?: Yes 10/24/23 07:59 Consult Physician Routine Consulting Provider: Addison Bernal Consult Reason/Comments: confusion Do you want consulting provider notified?: Yes 10/28/23 10:58 Consult Physician Routine Consulting Provider: Hanh Marin Consult Reason/Comments: MDRO UTI, recurrent Do you want consulting provider notified?: Yes 10/28/23 10:59 Consult Physician Routine Consulting Provider: Yemi Molina Consult Reason/Comments: Recurrent UTI Do you want consulting provider notified?: Yes Primary care physician: [facility] Course: Acute metabolic encephalopathy, resolving Recurrent MDRO urinary tract infection versus chronic cystitis Generalized weakness and debility Nausea and vomiting, resolving Constipation, resolved Hepatic steatosis with chronically elevated liver enzymes , suspected liver cirrhosis History of alcohol dependence Severe protein calorie malnutrition with cachexia Hiatal hernia with thicked proximal stomach Gastritis Renal cysts, bilateral ESRD on PD Hypokalemia, resolved Compensated systolic cardiomyopathy with ejection fraction 35% Hypertension Dyslipidemia Coronary artery disease Prior GI bleed Cataract disease Diverticular disease Iron deficiency anemia Osteoarthritis History of ESBL Patient is an 78-year-old female peritoneal dialysis with history of systolic ischemic cardiomyopathy last known ejection fraction 35%, hypertension, dyslipidemia, coronary artery disease status post PCI, and multiple other comorbid conditions who presented to the ER due to increasing weakness, fatigue, and loss of appetite. On arrival to the ER her vital signs were within normal limits. Initial laboratory analysis included CBC, coags, CMP which were remarkable for sodium 131, potassium 3.3, BUN 33, creatinine 6.78, AST 121, ALT 66. Urinalysis was consistent with UTI and she was started on Levaquin. Influenza A/B/RSV/COVID-19 testing was negative. Arrangements were made for admission. Nephrology was consulted. She underwent CT abdomen and pelvis which demonstrated moderate size hiatal hernia with retained contrast in the esophagus from reflux or dysmotility as well as a thickened appearance of the wall within the hernia of the proximal stomach concerning for pathologic thickening, there is moderate stool throughout the colon and bilateral renal nodules. Dietary was consulted. Calorie count was started. GI consulted, EGD showed diffuse gastritis, small to moderate size hiatal hernia, no evidence of esophageal strictures, biopsies were done. Brain MRI and EEG did not show any acute process. Due to recurrent urinary tract infection, ID and urology also consulted. Repeat urinalysis was contaminated. Pending another repeat urinalysis after straight cath. Pt completed course of ertapenem for ESBL. Pts discharge plan is to go home with home PT/OT and f/u with PCP, nephrology. I spent 40 minutes coordinating this discharge on 10/30 Vital signs reviewed General: Nontoxic, no distress, appears at stated age, temporal wasting Cardiovascular: S1S2 reg, no murmur, positive posterior tibial pulse bilateral, Lungs: Decreased breath sounds bilateral, no rhonchi, no rales, no accessory muscle use Abdominal: Soft, nontender to palpation, no guarding, no appreciable organomegaly Ext: No gross muscle atrophy, no edema b/l lower extremities, no contractures Neuro: CN II-XI grossly intact, no focal neuro deficits Psych: Alert, oriented, appropriate affect Plan - Discharge Summary Discharge Rx Participant: No New Discharge Prescriptions: Continue Famotidine [Pepcid] 20 mg PO DAILY Atorvastatin [Lipitor] 40 mg PO DAILY calcitrioL [Calcitriol] 0.25 mcg PO MOWEFR Metoprolol Succinate [Toprol XL] 50 mg PO DAILY Aspirin EC [Ecotrin Low Dose] 81 mg PO DAILY FLUoxetine HCL 20 mg PO BID buPROPion XL [Wellbutrin XL] 150 mg PO HS Potassium Chloride ER [K-Dur 10] 10 meq PO DAILY Pantoprazole [Protonix] 40 mg PO BID bisacodyL [Dulcolax] 10 mg PO HS Clopidogrel [Plavix] 75 mg PO DAILY Cholecalciferol [Vitamin D3 (25 Mcg = 1000 Iu)] 25 mcg PO DAILY amLODIPine [Norvasc] 10 mg PO DAILY #30 tab Megestrol [Megace] 40 mg PO DAILY Magnesium Oxide [Mag-Ox] 400 mg PO HS Folic Acid/Vit B Complex and C [Nephro-Trang Tablet] 0.8 mg PO DAILY ALPRAZolam [Xanax] 0.125 mg PO BID PRN PRN Reason: Anxiety Ondansetron Odt [Zofran ODT] 4 mg PO DAILY Ondansetron Odt [Zofran ODT] 4 mg PO Q6H PRN PRN Reason: Nausea Discontinued Calcium Acetate [Phoslo] 1,334 mg PO TID-W/MEALS Bumetanide [BUMEX] 2 mg PO DAILY Discharge Medication List Famotidine [Pepcid] 20 mg PO DAILY 02/26/20 [History] Atorvastatin [Lipitor] 40 mg PO DAILY 01/03/23 [History] Cholecalciferol [Vitamin D3 (25 Mcg = 1000 Iu)] 25 mcg PO DAILY 01/03/23 [History] Clopidogrel [Plavix] 75 mg PO DAILY 01/03/23 [History] Metoprolol Succinate [Toprol XL] 50 mg PO DAILY 01/03/23 [History] calcitrioL [Calcitriol] 0.25 mcg PO MOWEFR 01/03/23 [History] amLODIPine [Norvasc] 10 mg PO DAILY #30 tab 01/04/23 [Rx] Aspirin EC [Ecotrin Low Dose] 81 mg PO DAILY 02/13/23 [History] ALPRAZolam [Xanax] 0.125 mg PO BID PRN 10/23/23 [History] FLUoxetine HCL 20 mg PO BID 10/23/23 [History] Folic Acid/Vit B Complex and C [Nephro-Trang Tablet] 0.8 mg PO DAILY 10/23/23 [History] Magnesium Oxide [Mag-Ox] 400 mg PO HS 10/23/23 [History] Megestrol [Megace] 40 mg PO DAILY 10/23/23 [History] Ondansetron Odt [Zofran ODT] 4 mg PO DAILY 10/23/23 [History] Ondansetron Odt [Zofran ODT] 4 mg PO Q6H PRN 10/23/23 [History] Pantoprazole [Protonix] 40 mg PO BID 10/23/23 [History] Potassium Chloride ER [K-Dur 10] 10 meq PO DAILY 10/23/23 [History] bisacodyL [Dulcolax] 10 mg PO HS 10/23/23 [History] buPROPion XL [Wellbutrin XL] 150 mg PO HS 10/23/23 [History] Follow up Appointment(s)/Referral(s): [facility], [NON-STAFF] - As Needed ([facility] will contact you to schedule your in home physical therapy visits. ) Evan Baze MD [Primary Care Provider] - 10/31/23 2:45 pm Patient Instructions/Handouts: Urinary Tract Infection in Women (DC), Hypokalemia (DC) Discharge Disposition: HOME WITH HOME HEALTH SERVICES
--- NOTE | 2023-11-01 14:51 | CDI ---
Documentation Clarification Form Date: 11/01/2023 02:36:47 PM From: Julia Harden Phone: Admit Date: 10/24/2023 11:59:00 AM Patient Name: Danae Paiz Visit Number: [id number] Discharge Date: 10/30/2023 04:31:00 PM ATTENTION: The Clinical Documentation Specialists (CDI) and [facility] Coding Staff appreciate your assistance in clarifying documentation. Please respond to the clarification below the line at the bottom and electronically sign. The CDI & [facility] Coding staff will review the response and follow-up if needed. Please note: Queries are made part of the Legal Health Record. If you have any questions, please contact the author of this message via ITS. Dr. Teressa Corcoran Your patient has the documented diagnosis of unspecified CHF per Medical Hx Notes. Additional information regarding the type of CHF is requested. History/Risk Factors: 78yo F, chronic cystitis, ETOH dependence with steatosis & cirrhosis w ascites, severe PCM, ESRD on PD, ICM, HTN, CAD, DANNIELLE, met encephalopathy, chronic gastritis, compensated systolicICMwith EF 35% Clinical Indicators: VS/Pulse OX: 98-99% Chest x ray: The heart size is normal. The pulmonary vasculature is normal. The lungs are clear. Hx Note: Nov 2022, Pt had acute cardiac event,CHFfor which she underwent cardiac cath and subsequently developedrenal failureand has been on PD sincethen. Treatment: monitoring In your professional opinion, can you please clarify the type of CHF if known? [ ] Chronic Systolic Heart Failure (reduced EF) [ ] Chronic Diastolic Heart Failure (preserved EF) [ ] Chronic Systolic & Diastolic Heart Failure [ ] Other, please specify [ ] Unable to determine (Template Last Revised: November 2020) please send to appropriate discharging physician. I only saw 10/23 and 10/24 with compensated systolic CHF clearly documented MTDD
== END 2023-10-30 16:31 | disposition home health service (06) | DRG 689 ==
LOC: EC 08:54 → 4SSUR 11:41 → OBSVTOIN 10-24 11:59
PROVIDERS: ADMIT Internal Medicine; ATTEND Internal Medicine
PROC: 3E1M39Z Irrigation of Peritoneal Cavity using Dialysate, Percutaneous Approach (ICD-10-PCS; 2023-10-23)
PROC: 0DB78ZX Excision of Stomach, Pylorus, Via Natural or Artificial Opening Endoscopic, Diagnostic (ICD-10-PCS; 2023-10-27)
PROC: 0DB58ZX Excision of Esophagus, Via Natural or Artificial Opening Endoscopic, Diagnostic (ICD-10-PCS; principal; 2023-10-27 07:30)
DX: N30.21 Other chronic cystitis with hematuria (principal); E43 Unspecified severe protein-calorie malnutrition; G93.41 Metabolic encephalopathy; N18.6 End stage renal disease; R64 Cachexia; I13.2 Hypertensive heart and chronic kidney disease with heart failure and with stage 5 chronic kidney disease, or end stage renal disease; I50.22 Chronic systolic (congestive) heart failure; K70.31 Alcoholic cirrhosis of liver with ascites; F10.20 Alcohol dependence, uncomplicated; Z99.2 Dependence on renal dialysis; F05 Delirium due to known physiological condition; E87.1 Hypo-osmolality and hyponatremia; Z16.12 Extended spectrum beta lactamase (ESBL) resistance; N12 Tubulo-interstitial nephritis, not specified as acute or chronic; Z68.1 Body mass index [BMI] 19.9 or less, adult; Z16.24 Resistance to multiple antibiotics; K70.0 Alcoholic fatty liver; D63.1 Anemia in chronic kidney disease; E03.9 Hypothyroidism, unspecified; E86.1 Hypovolemia; F32.A Depression, unspecified; D50.9 Iron deficiency anemia, unspecified; M89.8X9 Other specified disorders of bone, unspecified site; I25.10 Atherosclerotic heart disease of native coronary artery without angina pectoris; I25.5 Ischemic cardiomyopathy; G89.29 Other chronic pain; K29.50 Unspecified chronic gastritis without bleeding; R03.1 Nonspecific low blood-pressure reading; K59.00 Constipation, unspecified; E87.6 Hypokalemia; E78.5 Hyperlipidemia, unspecified; M81.0 Age-related osteoporosis without current pathological fracture; R53.81 Other malaise; F41.9 Anxiety disorder, unspecified; N28.1 Cyst of kidney, acquired; E53.8 Deficiency of other specified B group vitamins; K57.90 Diverticulosis of intestine, part unspecified, without perforation or abscess without bleeding; M54.9 Dorsalgia, unspecified; M62.58 Muscle wasting and atrophy, not elsewhere classified, other site; M19.90 Unspecified osteoarthritis, unspecified site; K44.9 Diaphragmatic hernia without obstruction or gangrene; B96.20 Unspecified Escherichia coli [E. coli] as the cause of diseases classified elsewhere; Z87.440 Personal history of urinary (tract) infections; Z79.899 Other long term (current) drug therapy; Z79.82 Long term (current) use of aspirin; Z79.02 Long term (current) use of antithrombotics/antiplatelets; Z88.3 Allergy status to other anti-infective agents; Z88.8 Allergy status to other drugs, medicaments and biological substances; I25.2 Old myocardial infarction; Z86.19 Personal history of other infectious and parasitic diseases; Z95.5 Presence of coronary angioplasty implant and graft; Z98.1 Arthrodesis status; Z87.891 Personal history of nicotine dependence; Z11.52 Encounter for screening for COVID-19; Z88.1 Allergy status to other antibiotic agents; Z87.19 Personal history of other diseases of the digestive system; Z87.11 Personal history of peptic ulcer disease; Z86.16 Personal history of COVID-19
CPT/HCPCS: 36415; 43239; 70450; 70551; 71046; 74019; 74150; 80048; 80053; 81001; 82140; 83605; 83735; 84100; 84484; 85025; 85027; 85610; 85730; 87070; 87077; 87086; 87186; 87205; 87636; 88305; 89050; 93005; 94760; 95816; 96361; 96365; 96368; 99285

== ENCOUNTER 2024-04-10 14:02 | Inpatient (IN) | payer MEDICARE, BC ==
[2024-04-10] MEDS ORDERED: VANCOMYCIN IV PER PHARMACY 1 EACH MISC MISCELLANE PRN (15:01)
--- NOTE | 2024-04-10 15:20 | ED ---
General Adult HPI - General Chief complaint: Nausea/Vomiting/Diarrhea Stated complaint: on dialysis, having issues Time Seen by Provider: 04/10/24 14:04 Source: patient Mode of arrival: ambulatory Limitations: no limitations - History of Present Illness Initial comments: Dictation was produced using [employer] dictation software. please excuse any grammatical, word or spelling errors. Chief Complaint: 79-year-old presents to the emergency department with cloudy dialysate History of Present Illness: Patient is 79-year-old female with ESRD she does peritoneal dialysis at home. Last night her dialysate was noted to be very cloudy. Patient complaining of abdominal pain. Denies any fever, chills or night sweats. at the bedside states that they contacted patient's press and blow machine tender and was told to come to the emergency department for IV antibiotics and further treatment. Patient states that her abdomen hurts especially to the lower abdomen when she tries to take a deep breath. Patient's press and blow machine tender is Dr. Carter. The ROS documented in this emergency department record has been reviewed and confirmed by me. Those systems with pertinent positive or negative responses have been documented in the HPI. All other systems are other negative and/or noncontributory. - Related Data Home Medications Medication Instructions Recorded Confirmed Famotidine [Pepcid] 20 mg PO DAILY 02/26/20 10/23/23 Atorvastatin [Lipitor] 40 mg PO DAILY 01/03/23 10/23/23 Cholecalciferol [Vitamin D3 (25 25 mcg PO DAILY 01/03/23 10/23/23 Mcg = 1000 Iu)] Clopidogrel [Plavix] 75 mg PO DAILY 01/03/23 10/23/23 Metoprolol Succinate [Toprol XL] 50 mg PO DAILY 01/03/23 10/23/23 calcitrioL 0.25 mcg PO MOWEFR 01/03/23 10/23/23 Aspirin EC [Ecotrin Low Dose] 81 mg PO DAILY 02/13/23 10/23/23 ALPRAZolam [Xanax] 0.125 mg PO BID PRN 10/23/23 10/23/23 FLUoxetine HCL 20 mg PO BID 10/23/23 10/23/23 Folic Acid/Vit B Complex and C 0.8 mg PO DAILY 10/23/23 10/23/23 [Nephro-Trang Tablet] Magnesium Oxide [Mag-Ox] 400 mg PO HS 10/23/23 10/23/23 Megestrol [Megace] 40 mg PO DAILY 10/23/23 10/23/23 Ondansetron Odt [Zofran ODT] 4 mg PO DAILY 10/23/23 10/23/23 Ondansetron Odt [Zofran ODT] 4 mg PO Q6H PRN 10/23/23 10/23/23 Pantoprazole [Protonix] 40 mg PO BID 10/23/23 10/23/23 Potassium Chloride ER [K-Dur 10] 10 meq PO DAILY 10/23/23 10/23/23 bisacodyL [Dulcolax] 10 mg PO HS 10/23/23 10/23/23 buPROPion XL [Wellbutrin XL] 150 mg PO HS 10/23/23 10/23/23 Previous Rx's Medication Instructions Recorded amLODIPine [Norvasc] 10 mg PO DAILY #30 tab 01/04/23 Allergies Allergy/AdvReac Type Severity Reaction Status Date / Time celecoxib [From Celebrex] Allergy Rash/Hives Verified 04/10/24 14:12 cephalexin [From Keflex] Allergy Unknown Verified 04/10/24 14:12 nitrofurantoin Allergy Rash all Verified 04/10/24 14:12 [From Macrobid] over nitrofurantoin Allergy Rash all Verified 04/10/24 14:12 macrocrystalline over [From Macrobid] sulfamethoxazole Allergy Face Verified 04/10/24 14:12 [From Bactrim] swelling trimethoprim [From Bactrim] Allergy Face Verified 04/10/24 14:12 swelling Review of Systems ROS Statement: Those systems with pertinent positive or pertinent negative responses have been documented in the HPI. ROS Other: All systems not noted in ROS Statement are negative. Past Medical History Past Medical History: Heart Failure, Eye Disorder, GI Bleed, Hyperlipidemia, Hypertension, Myocardial Infarction ([place]), Musculoskeletal Disorder, Osteoarthritis (OA), Renal Disease Additional Past Medical History / Comment(s): Chronic anemia-iron deficiency, chronic kidney disease stage V, diverticular disease, osteoporosis; cataracts with lens replacement Last Myocardial Infarction Date:: 11/27/22 History of Any Multi-Drug Resistant Organisms: ESBL Date of last positivie culture/infection: 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 Source:: Urine Past Surgical History: Heart Catheterization With Stent, Orthopedic Surgery, Tonsillectomy, Tubal Ligation Additional Past Surgical History / Comment(s): removal ovary, bilateral cataract removal with lens implant, cervical spinal fusion, cervical steroid injection Past Anesthesia/Blood Transfusion Reactions: No Reported Reaction Date of Last Stent Placement:: 11/27/22 Past Psychological History: Anxiety Smoking Status: Former smoker Past Alcohol Use History: Occasional Past Drug Use History: None Reported - Past Family History Mother Family Medical History: Osteoarthritis ([place]) Sister(s) Family Medical History: Cancer Additional Family Medical History / Comment(s): breast cancer Father Family Medical History: No Reported History Brother(s) Family Medical History: Osteoarthritis ([place]) Daughter(s) Family Medical History: No Reported History Son(s) Family Medical History: No Reported History General Exam - General Exam Comments Initial Comments: PHYSICAL EXAM: General Impression: Alert and oriented x3, not in acute distress HEENT: Normocephalic atraumatic, extra-ocular movements intact, pupils equal and reactive to light bilaterally, mucous membranes moist. Cardiovascular: Heart regular rate and rhythm Chest: Able to complete full sentences, no retractions, no tachypnea Abdomen: a mild distention, mild diffuse tenderness Musculoskeletal: Pulses present and equal in all extremities, no peripheral edema Motor: no focal deficits noted Neurological: CN II-XII grossly intact, no focal motor or sensory deficits noted Skin: Intact with no visualized rashes Psych: Normal affect and mood Limitations: no limitations Course Vital Signs 04/10/24 04/10/24 14:09 16:05 Temperature 98.2 F Pulse Rate 96 94 Respiratory 18 16 Rate Blood Pressure 105/61 102/58 O2 Sat by Pulse 97 97 Oximetry EKG Findings - EKG Comments: EKG Findings:: My EKG interpretation: Ventricular rate 88, sinus rhythm,. 164, QRS 101, QTc 455. No CO prolongation, no QTC prolongation, no ST or T-wave changes noted. Overall, this EKG is unremarkable Medical Decision Making - Medical Decision Making Was pt. sent in by a medical professional or institution (, PA, [employer]PERVISOR, urgent care, hospital, or senior living...) When possible be specific @ -No Did you speak to anyone other than the patient for history (EMS, parent, family, police, friend...)? What history was obtained from this source @ -HPI from as described above Did you review nursing and triage notes (agree or disagree)? Why? @ -I reviewed and agree with nursing and triage notes Were old charts reviewed (outside hosp., previous admission, EMS record, old EKG, old radiological studies, urgent care reports/EKG's, senior living records)? Report findings @ -No old charts were reviewed Differential Diagnosis (chest pain, altered mental status, abdominal pain women, abdominal pain men, vaginal bleeding, musculoskeletal, weakness, fever, dyspnea, syncope, headache, dizziness, GI bleed, back pain, seizure, CVA, palpatations, mental health)? @ -Differential Abdominal Pain Women: Appendicitis, Cholecystitis, diverticulosis, ischemic bowel, pancreatitis, hepatitis, UTI, gastroenteritis, AAA, incarcerated hernia, bowel obstruction, constipation, inflammatory bowel, hepatitis, peptic ulcer disease, splenic infarction, perforated viscus, vulvitis, ovarian torsion, PID, kidney stone, placenta abruption, this is not meant to be an all-inclusive list EKG interpreted by me (3pts min.). @ -See above X-rays interpreted by me (1pt min.). @ -None done CT interpreted by me (1pt min.). @ -None done U/S interpreted by me (1pt. min.). @ -None done What testing was considered but not performed or refused? (CT, X-rays, U/S, labs)? Why? @ -None What meds were considered but not given or refused? Why? @ -None Was smoking cessation discussed for >3mins.? @ -No Were there social determinants of health that impacted care today? How? (Homelessness, low income, unemployed, alcoholism, drug addiction, transportation, low edu. Level, literacy, decrease access to med. care, residential, rehab)? @ -No Was there de-escalation of care discussed even if they declined (Discuss DNR or withdrawal of care, Hospice)? DNR status @ -No What co-morbidities impacted this encounter? (DM, HTN, Smoking, COPD, CAD, Cancer, CVA, ARF, Chemo, Hep., AIDS, mental health diagnosis, sleep apnea, morbid obesity)? @ -Peritoneal dialysis Was patient admitted / discharged? Hospital course, mention meds given and route, prescriptions, significant lab abnormalities, going to OR and other pertinent info. @ -79-year-old female presents to the ER for cloudy dialysate and abdominal pain. Vital signs upon arrival are within acceptable limits. Patient afebrile. No leukocytosis. CBC unremarkable. Metabolic panel shows hyponatremia 126. E levated renal function. CRP is 5.1. Dialysate sample ordered for culture. Patient given broad-spectrum antibiotics will be admitted with consultation to nephrology. Patient nonseptic. She has no hypotension. Lactic acid level is below 4. Patient well-appearing. Patient would likely experience worsening if given the usual of 30 cc/kg bolus given ESRD. Did you discuss the management of the patient with other professionals (professionals i.e. , PA, [employer]PERVISOR, lab, RT, psych nurse, social work associate, eligibility counselor, teacher, low altitude air defense officer, telehealth case manager)? Give summary @ -Discussed with Sheet for admission Was critical care preformed (if so, how long)? @ -No Undiagnosed new problem with uncertain prognosis? @ -No Drug Therapy requiring intensive monitoring for toxicity (Heparin, Nitro, Insulin, Cardizem)? @ -No Were any procedures done? @ -No Diagnosis/symptom? Acute, or Chronic, or Acute on Chronic? Uncomplicated (without systemic symptoms) or Complicated (systemic symptoms)? @ -Bacterial peritonitis Side effects of treatment? @ -No Exacerbation, Progression, or Severe Exacerbation? @ -No Poses a threat to life or bodily function? How? (Chest pain, [place], [place], pneumonia, PE, COPD, DKA, ARF, appy, cholecystitis, CVA, Diverticulitis, Homicidal, Suicidal, threat to staff... and all critical care pts) @ -yes - Lab Data Result diagrams: 04/10/24 15:28 04/10/24 15:28 Lab Results 04/10/24 04/10/24 04/10/24 Range/Units 15:28 15:28 15:28 WBC 7.5 (3.8-10.6) k/uL RBC 3.26 L (3.80-5.40) m/uL Hgb 10.5 L (11.4-16.0) gm/dL Hct 31.2 L (34.0-46.0) % MCV 95.8 (80.0-100.0) fL MCH 32.3 (25.0-35.0) pg MCHC 33.7 (31.0-37.0) g/dL RDW 13.4 (11.5-15.5) % Plt Count 326 (150-450) k/uL MPV 7.2 Neutrophils % 75 % Lymphocytes % 11 % Monocytes % 10 % Eosinophils % 3 % Basophils % 0 % Neutrophils # 5.6 (1.3-7.7) k/uL Lymphocytes # 0.8 L (1.0-4.8) k/uL Monocytes # 0.7 (0-1.0) k/uL Eosinophils # 0.2 (0-0.7) k/uL Basophils # 0.0 (0-0.2) k/uL Sodium 126 L (137-145) mmol/L Potassium 4.5 (3.5-5.1) mmol/L Chloride 95 L (98-107) mmol/L Carbon Dioxide 29 (22-30) mmol/L Anion Gap 2 mmol/L BUN 33 H (7-17) mg/dL Creatinine 4.46 H (0.52-1.04) mg/dL Est GFR (CKD-EPI)AfAm 10 (>60 ml/min/1.73 sqM) Est GFR (CKD-EPI)NonAf 9 (>60 ml/min/1.73 sqM) Glucose 84 (74-99) mg/dL Plasma Lactic Acid Omar 0.9 (0.7-2.0) mmol/L Calcium 8.5 (8.4-10.2) mg/dL Magnesium 1.7 (1.6-2.3) mg/dL Total Bilirubin 1.2 (0.2-1.3) mg/dL AST 43 H (14-36) U/L ALT 21 (4-34) U/L Alkaline Phosphatase 128 H (38-126) U/L C-Reactive Protein 5.1 H (<1.0) mg/dL Total Protein 5.2 L (6.3-8.2) g/dL Albumin 2.3 L (3.5-5.0) g/dL Disposition Clinical Impression: Bacterial peritonitis Disposition: ADMITTED IP TO THIS [facility] Condition: Serious Referrals: Evan Baez MD [Primary Care Provider] - 1-2 days Decision Time: 17:05
[2024-04-10 15:58] LABS: Basophils % (A) 0 %; Eosinophils # (A) 0.2 k/uL (0-0.7); Eosinophils % (A) 3 %; HCT 31.2 % (34.0-46.0); HGB 10.5 gm/dL (11.4-16.0); Lymphocytes # (A) 0.8 k/uL (1.0-4.8); Lymphocytes % (A) 11 %; MCH 32.3 pg (25.0-35.0); MCHC 33.7 g/dL (31.0-37.0); MCV 95.8 fL (80.0-100.0); Mean Platelet Volume 7.2; Monocytes # (A) 0.7 k/uL (0-1.0); Monocytes % (A) 10 %; Neutrophils # (A) 5.6 k/uL (1.3-7.7); Neutrophils % (A) 75 %; Platelet Count 326 k/uL (150-450); RBC 3.26 m/uL (3.80-5.40); RDW 13.4 % (11.5-15.5); WBC 7.5 k/uL (3.8-10.6)
[2024-04-10] MEDS: LEVOFLOXACIN 750MG-D5W PMX 750 MG in DEXTROSE/WATER 1 150ML.BAG IVPB ONE (15:59)
[2024-04-10] MEDS ORDERED: VANCOMYCIN 1,000 MG in SODIUM CHLORIDE 0.9% 250 ML IVPB ONE (16:00)
[2024-04-10 16:12] LABS: African American GFR (CKD) 10 (>60 ml/min/1.73 sqM); Anion Gap 2 mmol/L; Blood Urea Nitrogen 33 mg/dL (7-17); C Reactive Protein 5.1 mg/dL (<1.0); Calcium 8.5 mg/dL (8.4-10.2); Carbon Dioxide 29 mmol/L (22-30); Chloride 95 mmol/L (98-107); Glucose 84 mg/dL (74-99); Magnesium 1.7 mg/dL (1.6-2.3); Non-African American GFR(CKD) 9 (>60 ml/min/1.73 sqM); Sodium 126 mmol/L (137-145)
[2024-04-10 16:17] LABS: ALT 21 U/L (4-34); AST 43 U/L (14-36); Albumin 2.3 g/dL (3.5-5.0); Potassium 4.5 mmol/L (3.5-5.1); Total Bilirubin 1.2 mg/dL (0.2-1.3); Total Protein 5.2 g/dL (6.3-8.2)
[2024-04-10 16:18] LABS: Alkaline Phosphatase 128 U/L (38-126)
[2024-04-10] MEDS ORDERED: NALOXONE 0.4 MG/ML 1 ML VIAL IV PRN (17:02)
[2024-04-10] MEDS: VANCOMYCIN 1,000 MG in SODIUM CHLORIDE 0.9% 250 ML IVPB ONE (19:46)
[2024-04-11] MEDS: VANCOMYCIN INTRAPERIT ONE (00:04)
[2024-04-11] MEDS: CEFTAZIDIME INTRAPERIT ONE (00:04)
[2024-04-11] MEDS ORDERED: VANCOMYCIN 500 MG VIAL ONE (00:04)
[2024-04-11] MEDS ORDERED: VANCOMYCIN 1,000 MG VIAL ONE (00:04)
[2024-04-11] MEDS ORDERED: DIALYSIS DEX INTRAPERIT ONE (00:04)
[2024-04-11] MEDS: DIALYSIS DEX INTRAPERIT ONE (00:04)
[2024-04-11] MEDS: SODIUM CHLORIDE 0.9% 1,000 ML IV SCH (00:31)
[2024-04-11] MEDS: DIALYSIS (PERIT 1.5%) 2,000 ML 30 G/2,000 ML BAG INTRAPERIT SCH (06:25)
[2024-04-11 08:52] LABS: Appearance,BF Cloudy (Clear)
[2024-04-11] MEDS ORDERED: LACTULOSE 20 GM/30 ML CUP PO PRN (09:21)
--- NOTE | 2024-04-11 11:01 | P.NPCON ---
History of Present Illness - Reason for Consult end stage renal disease - History of Present Illness Reason for consultation: End-stage renal disease History of present illness: Patient is 79-year-old female seen in renal consultation for end-stage renal disease. She is maintained on peritoneal dialysis. Patient states she has been having abdominal discomfort for a few days now but noticed cloudy dialysate yesterday. Outpatient antibiotics could not be arranged so patient was admitted to the hospital. Patient was started on intraperitoneal vancomycin and Fortaz April 10, 2024. Denies chest pain or shortness of breath. Denies nausea and vomiting prior to admission but feels nauseous today. No history of diabetes. Does have history of coronary disease with cardiac stenting. Denies use of n onsteroidals. She does make some urine. No fever or chills. Blood pressure stable. Dialysate WBC count noted to be 3176 with 71% PMNs. Vital signs are stable. General: No acute distress. HEENT: Head exam is unremarkable. LUNGS: No audible rhonchi or wheezes. HEART: Rate and Rhythm are regular. ABDOMEN: Nontender. EXTREMITITES: No edema. Past Medical History Past Medical History: Coronary Artery Disease (CAD), Heart Failure, Eye Disorder, GERD/Reflux, GI Bleed, Hyperlipidemia, Hypertension, Myocardial Infarction ([place]), Musculoskeletal Disorder, Osteoarthritis (OA), Renal Disease Additional Past Medical History / Comment(s): anemia-iron deficiency, chronic kidney disease stage V- on CAPD, diverticular disease, osteoporosis, cataract, hiatal hernia, ischemic cardiomyopathy, bilateral renal nodules, UTIs Last Myocardial Infarction Date:: 11/27/22 History of Any Multi-Drug Resistant Organisms: ESBL Date of last positivie culture/infection: 10/23/23 ESBL E.coli MDRO Source:: Urine Past Surgical History: Heart Catheterization With Stent, Orthopedic Surgery, Tonsillectomy, Tubal Ligation Additional Past Surgical History / Comment(s): removal ovaries, bilateral cataract removal with lens implants, cervical spinal fusion, cervical steroid injection, PCI Past Anesthesia/Blood Transfusion Reactions: No Reported Reaction Additional Past Anesthesia/Blood Transfusion Reaction / Comment(s): N/A Date of Last Stent Placement:: 11/27/22 Smoking Status: Former smoker - Past Family History Mother Family Medical History: Osteoarthritis (OA) Additional Family Medical History / Comment(s): Sister(s) Family Medical History: Cancer Additional Family Medical History / Comment(s): breast cancer Father Family Medical History: No Reported History Additional Family Medical History / Comment(s): Brother(s) Family Medical History: Osteoarthritis (OA) Daughter(s) Family Medical History: No Reported History Son(s) Family Medical History: No Reported History Medications and Allergies Home Medications Medication Instructions Recorded Confirmed Type Famotidine [Pepcid] 20 mg PO DAILY 02/26/20 04/10/24 History Atorvastatin [Lipitor] 40 mg PO DAILY 01/03/23 04/10/24 History Cholecalciferol [Vitamin D3 (25 25 mcg PO DAILY 01/03/23 04/10/24 History Mcg = 1000 Iu)] Metoprolol Succinate [Toprol XL] 50 mg PO HS 01/03/23 04/10/24 History calcitrioL 0.25 mcg PO MOTH 01/03/23 04/10/24 History Aspirin EC [Ecotrin Low Dose] 81 mg PO DAILY 02/13/23 04/10/24 History FLUoxetine HCL 40 mg PO DAILY 10/23/23 04/10/24 History Folic Acid/Vit B Complex and C 0.8 mg PO DAILY 10/23/23 04/10/24 History [Nephro-Trang Tablet] Magnesium Oxide [Mag-Ox] 400 mg PO MOTUWETHFR@2200 10/23/23 04/10/24 History Pantoprazole [Protonix] 40 mg PO BID 10/23/23 04/10/24 History Potassium Chloride ER [K-Dur 10] 10 meq PO MOWEFR 10/23/23 04/10/24 History Bumetanide [BUMEX] 2 mg PO DAILY 04/10/24 04/10/24 History Gentamicin 0.1% Cream 1 applic TOPICAL DIRECTED PRN 04/10/24 04/10/24 History Lactulose 10 gm PO HS PRN 04/10/24 04/10/24 History amLODIPine [Norvasc] 5 mg PO DAILY 04/10/24 04/10/24 History risperiDONE [RisperDAL] 0.25 mg PO BID 04/10/24 04/10/24 History Calcium Acetate [Phoslo] 1,334 mg PO TID 04/11/24 04/11/24 History Ondansetron Odt [Zofran Odt] 4 mg PO Q6HR PRN 04/11/24 04/11/24 History Allergies Allergy/AdvReac Type Severity Reaction Status Date / Time celecoxib [From Celebrex] Allergy Rash/Hives Verified 04/10/24 17:21 cephalexin [From Keflex] Allergy Unknown Verified 04/10/24 17:21 nitrofurantoin Allergy Rash all Verified 04/10/24 17:21 [From Macrobid] over nitrofurantoin Allergy Rash all Verified 04/10/24 17:21 macrocrystalline over [From Macrobid] sulfamethoxazole Allergy Face Verified 04/10/24 17:21 [From Bactrim] swelling trimethoprim [From Bactrim] Allergy Face Verified 04/10/24 17:21 swelling Physical Exam Vitals: Vital Signs Temp Pulse Pulse Resp BP BP Pulse Ox 04/11/24 08:14 98.1 F 106 H 17 114/74 98 04/11/24 06:29 98.4 F 64 16 96 04/11/24 01:57 59 L 04/11/24 01:34 97.8 F 59 L 16 106/68 96 04/11/24 01:20 98.3 F 91 16 104/61 97 04/10/24 18:22 98.3 F 91 16 104/61 97 04/10/24 17:52 94 16 105/62 97 04/10/24 16:05 94 16 102/58 97 04/10/24 14:09 98.2 F 96 18 105/61 97 Intake and Output 04/10/24 04/11/24 04/11/24 22:59 06:59 14:59 Intake Total 590 Balance 590 Intake: Oral 590 Other: Voiding Method Toilet CAPD Weight 54.431 kg Results - Lab Results Most recent lab results Calcium 8.5 mg/dL (8.4-10.2) 04/10/24 15:28 Magnesium 1.7 mg/dL (1.6-2.3) 04/10/24 15:28 04/10/24 15:28 04/10/24 15:28 Assessment and Plan Plan: Assessment: 1. End-stage renal disease maintained on peritoneal dialysis. 2. PD associated peritonitis. Dialysate WBC count 3176 with 71% PMNs dated April 10, 2024. 3. Coronary disease with cardiac stenting. 4. Anemia of chronic kidney disease. Stable. 5. Hyponatremia secondary to chronic kidney disease. Plan: Maintain current PD exchanges with 2 L every 6 hours with 1.5% dextrose solution. Maintain Bumex. Started on intraperitoneal vancomycin and Fortaz April 10, 2024. Continue with daily Fortaz. Repeat dialysis cell count culture and Gram stain today. Encouraged oral intake, particularly protein. Add 1500 cc fluid restriction. Thank you for the consultation. I will continue to follow the patient with you during her hospital stay.
[2024-04-11 11:14] LABS: Appearance,BF Clear (Clear)
--- NOTE | 2024-04-11 11:26 | P.HPIM ---
History of Present Illness This is a pleasant 79 years old female with past medical history of multiple medical problems as below Patient is a known case of end-stage renal disease on peritoneal dialysis Presents because of not feeling well and abdominal pain of 7 days duration. Pain is nonspecific it is worse with deep inspiration Pain is just above and more medially to the PD catheter in the left lower quadrant however there is no, guarding or rebound tenderness, abdomen looks soft Patient reports some diarrhea for the last 3-4 days has 3-4 times per day. Patient does not make much urine. Has good appetite No chest pain or dyspnea, no dizziness or weakness or numbness Patient denies smoking alcohol or illicit drugs. She is afebrile, blood pressure stable. Mildly tachycardic She is having hemoglobin of 10.5 sodium 126 Patient is started on ceftazidime and IV vancomycin on admission Review of Systems Review of systems CONSTITUTIONAL: No fever, no malaise, no fatigue. HEENT: No recent visual problems or hearing problems. Denied any sore throat. CARDIOVASCULAR: No orthopnea, PND, no palpitations, no syncope. PULMONARY: No shortness of breath, no cough, no hemoptysis. GASTROINTESTINAL: No diarrhea, no nausea, no vomiting, no abdominal pain. Normoactive bowel sounds. NEUROLOGICAL: No headaches, no weakness, no numbness. HEMATOLOGICAL: Denies any bleeding or petechiae. GENITOURINARY: Denies any burning micturition, frequency, or urgency. MUSCULOSKELETAL/RHEUMATOLOGICAL: Denies any joint pain, swelling, or any muscle pain. ENDOCRINE: Denies any polyuria or polydipsia. Past Medical History Past Medical History: Coronary Artery Disease (CAD), Heart Failure, Eye Disorder, GERD/Reflux, GI Bleed, Hyperlipidemia, Hypertension, Myocardial Infarction (UT), Musculoskeletal Disorder, Osteoarthritis (OA), Renal Disease Additional Past Medical History / Comment(s): anemia-iron deficiency, chronic kidney disease stage V- on CAPD, diverticular disease, osteoporosis, cataract, hiatal hernia, ischemic cardiomyopathy, bilateral renal nodules, UTIs Last Myocardial Infarction Date:: 11/27/22 History of Any Multi-Drug Resistant Organisms: ESBL Date of last positivie culture/infection: 10/23/23 ESBL E.coli MDRO Source:: Urine Past Surgical History: Heart Catheterization With Stent, Orthopedic Surgery, Tonsillectomy, Tubal Ligation Additional Past Surgical History / Comment(s): removal ovaries, bilateral cataract removal with lens implants, cervical spinal fusion, cervical steroid injection, PCI Past Anesthesia/Blood Transfusion Reactions: No Reported Reaction Additional Past Anesthesia/Blood Transfusion Reaction / Comment(s): N/A Date of Last Stent Placement:: 11/27/22 Smoking Status: Former smoker - Past Family History Mother Family Medical History: Osteoarthritis (OA) Additional Family Medical History / Comment(s): Sister(s) Family Medical History: Cancer Additional Family Medical History / Comment(s): breast cancer Father Family Medical History: No Reported History Additional Family Medical History / Comment(s): Brother(s) Family Medical History: Osteoarthritis (OA) Daughter(s) Family Medical History: No Reported History Son(s) Family Medical History: No Reported History Medications and Allergies Home Medications Medication Instructions Recorded Confirmed Type Famotidine [Pepcid] 20 mg PO DAILY 02/26/20 04/10/24 History Atorvastatin [Lipitor] 40 mg PO DAILY 01/03/23 04/10/24 History Cholecalciferol [Vitamin D3 (25 25 mcg PO DAILY 01/03/23 04/10/24 History Mcg = 1000 Iu)] Metoprolol Succinate [Toprol XL] 50 mg PO HS 01/03/23 04/10/24 History calcitrioL 0.25 mcg PO MOTH 01/03/23 04/10/24 History Aspirin EC [Ecotrin Low Dose] 81 mg PO DAILY 02/13/23 04/10/24 History FLUoxetine HCL 40 mg PO DAILY 10/23/23 04/10/24 History Folic Acid/Vit B Complex and C 0.8 mg PO DAILY 10/23/23 04/10/24 History [Nephro-Trang Tablet] Magnesium Oxide [Mag-Ox] 400 mg PO MOTUWETHFR@2200 10/23/23 04/10/24 History Pantoprazole [Protonix] 40 mg PO BID 10/23/23 04/10/24 History Potassium Chloride ER [K-Dur 10] 10 meq PO MOWEFR 10/23/23 04/10/24 History Bumetanide [BUMEX] 2 mg PO DAILY 04/10/24 04/10/24 History Gentamicin 0.1% Cream 1 applic TOPICAL DIRECTED PRN 04/10/24 04/10/24 History Lactulose 10 gm PO HS PRN 04/10/24 04/10/24 History amLODIPine [Norvasc] 5 mg PO DAILY 04/10/24 04/10/24 History risperiDONE [RisperDAL] 0.25 mg PO BID 04/10/24 04/10/24 History Calcium Acetate [Phoslo] 1,334 mg PO TID 04/11/24 04/11/24 History Ondansetron Odt [Zofran Odt] 4 mg PO Q6HR PRN 04/11/24 04/11/24 History Allergies Allergy/AdvReac Type Severity Reaction Status Date / Time celecoxib [From Celebrex] Allergy Rash/Hives Verified 04/10/24 17:21 cephalexin [From Keflex] Allergy Unknown Verified 04/10/24 17:21 nitrofurantoin Allergy Rash all Verified 04/10/24 17:21 [From Macrobid] over nitrofurantoin Allergy Rash all Verified 04/10/24 17:21 macrocrystalline over [From Macrobid] sulfamethoxazole Allergy Face Verified 04/10/24 17:21 [From Bactrim] swelling trimethoprim [From Bactrim] Allergy Face Verified 04/10/24 17:21 swelling Physical Exam Vitals: Vital Signs Temp Pulse Pulse Resp BP BP Pulse Ox 04/11/24 08:14 98.1 F 106 H 17 114/74 98 04/11/24 06:29 98.4 F 64 16 96 04/11/24 01:57 59 L 04/11/24 01:34 97.8 F 59 L 16 106/68 96 04/11/24 01:20 98.3 F 91 16 104/61 97 04/10/24 18:22 98.3 F 91 16 104/61 97 04/10/24 17:52 94 16 105/62 97 04/10/24 16:05 94 16 102/58 97 04/10/24 14:09 98.2 F 96 18 105/61 97 Intake and Output 04/10/24 04/11/24 04/11/24 22:59 06:59 14:59 Intake Total 590 Balance 590 Intake: Oral 590 Other: Voiding Method Toilet CAPD Weight 54.431 kg GENERAL: The patient is alert and oriented x3, not in any acute distress. Well developed, well nourished. HEENT: Pupils are round and equally reacting to light. EOMI. No scleral icterus. No conjunctival pallor. Normocephalic, atraumatic. No pharyngeal erythema. No thyromegaly. CARDIOVASCULAR: S1 and S2 present. No murmurs, rubs, or gallops. PULMONARY: Chest is clear to auscultation, no wheezing , no crackles. -ABDOMEN: Soft, nontender, nondistended, normoactive bowel sounds. No palpable organomegaly. PD dialysis in the left lower quadrant with mild abdominal pain below and left to the umbilicus with no guarding or rebound tenderness- MUSCULOSKELETAL: No joint swelling or deformity. EXTREMITIES: No cyanosis, clubbing, or pedal edema. NEUROLOGICAL: Gross neurological examination did not reveal any focal deficits. SKIN: No rashes. no petechiae. Results CBC & Chem 7: 04/10/24 15:28 04/10/24 15:28 Labs: Abnormal Lab Results - Last 24 Hours (Table) 04/10/24 04/10/24 04/10/24 Range/Units 15:28 15:28 16:45 RBC 3.26 L (3.80-5.40) m/uL Hgb 10.5 L (11.4-16.0) gm/dL Hct 31.2 L (34.0-46.0) % Lymphocytes # 0.8 L (1.0-4.8) k/uL Sodium 126 L (137-145) mmol/L Chloride 95 L (98-107) mmol/L BUN 33 H (7-17) mg/dL Creatinine 4.46 H (0.52-1.04) mg/dL AST 43 H (14-36) U/L Alkaline Phosphatase 128 H (38-126) U/L C-Reactive Protein 5.1 H (<1.0) mg/dL Total Protein 5.2 L (6.3-8.2) g/dL Albumin 2.3 L (3.5-5.0) g/dL Fluid Appearance Cloudy A (Clear) Thrombosis Risk Factor Assmnt - Choose All That Apply Each Risk Factor Represents 3 Points: Age 75 years or older Thrombosis Risk Factor Assessment Total Risk Factor Score: 3 Thrombosis Risk Factor Assessment Level: Moderate Risk Assessment and Plan Assessment: Acute bacterial peritonitis, related to peritoneal dialysis catheter chronic kidney disease stage V- on CAPD coronary Artery Disease Chronic heart Failure, GERD/Reflux History of GI Bleed Hyperlipidemia Hypertension history of Osteoarthritis diverticular disease, osteoporosis cataract, hiatal hernia ischemic cardiomyopathy bilateral renal nodules, UTIs with Multi-Drug Resistant Organisms: ESBL Plan: Continue with peritoneal dialysis Continue with antibiotic with infectious disease consult, currently on ceftazidime and IV vancomycin No IV fluids running Nephrology team and we will defer dialysis management to their service. Continue with aspirin, metoprolol and Bumex. Monitor sodium level Labs and medication were reviewed.. Continue same treatment. Continue with symptomatic treatment. Resume home medication. Monitor labs and vitals. DVT and GI prophylaxis. Further recommendations as per clinical course of the patient DVT prophylaxis: Subcutaneous heparin GI Prophylaxis: Pepcid Prognosis is guarded
[2024-04-11 11:46] VITALS: RESP 16
[2024-04-11] MEDS ORDERED: CEFTAZIDIME INTRAPERIT SCH (12:00)
[2024-04-11] MEDS ORDERED: DIALYSIS (PERIT 1.5%) 2,000 ML 30 G/2,000 ML BAG INTRAPERIT SCH ×2 (12:00)
[2024-04-11] MEDS ORDERED: DIALYSIS DEX INTRAPERIT SCH (12:00)
[2024-04-11] MEDS: cefTAZidime 1.25 GM in DIALYSIS (PERITONL) DEX 1.5% 2,000 ML INTRAPERIT SCH (12:10)
[2024-04-11] MEDS: CALCIUM ACETATE 667 MG TAB PO SCH ×2 (17:06→18:18)
[2024-04-11] MEDS: risperiDONE 0.25 MG TAB PO SCH (20:12)
[2024-04-11] MEDS: METOPROLOL SUCCINATE (ER) 50 MG TAB.ER.24H PO SCH (20:12)
[2024-04-11] MEDS: PANTOPRAZOLE 40 MG TABLET PO SCH (20:12)
[2024-04-12 00:15] LABS: Appearance,BF Cloudy (Clear)
[2024-04-12] MEDS: ASPIRIN 81 MG PO SCH (08:01)
[2024-04-12] MEDS: ATORVASTATIN 40 MG TAB PO SCH (08:01)
[2024-04-12] MEDS: CHOLECALCIFEROL 25 MCG (1000 IU) TABLET PO SCH (08:01)
[2024-04-12] MEDS: FAMOTIDINE 20 MG TAB PO SCH (08:02)
[2024-04-12] MEDS: FOLIC ACID-VIT B COMPLEX-VIT C 1 CAP PO SCH (08:02)
[2024-04-12] MEDS: BUMETANIDE 1 MG TAB PO SCH (08:02)
[2024-04-12] MEDS: FLUoxetine HCL 20 MG CAP PO SCH (08:02)
[2024-04-12] MEDS: ONDANSETRON ODT 4 MG TAB PO PRN (08:07)
--- NOTE | 2024-04-12 11:36 | P.PN ---
Subjective Patient is seen in follow-up for end-stage renal disease. She is maintained on peritoneal dialysis. No problems with PD exchanges. Receiving intraperitoneal antibiotics. No abdominal pain. No vomiting. No fever. Vital signs are stable. General: No acute distress. HEENT: Head exam is unremarkable. LUNGS: No audible rhonchi or wheezes. HEART: Rate and Rhythm are regular. ABDOMEN: Nontender. EXTREMITITES: No edema. Objective - Vital Signs Vital signs: Vital Signs Temp 98.1 F 04/12/24 07:23 Pulse 79 04/12/24 07:23 Resp 16 04/12/24 07:23 BP 119/67 04/12/24 07:23 Pulse Ox 97 04/12/24 07:23 FiO2 Intake & Output 04/11/24 04/12/24 04/12/24 18:59 06:59 18:59 Intake Total 830 240 Balance 830 240 Intake: Intake, IV Titration 240 Amount Sodium Chloride 0.9% 1, 240 000 ml @ 20 mls/hr IV . Q24H [facility] Rx#:[id number] Oral 590 240 Other: Voiding Method Toilet Toilet Toilet CAPD CAPD CAPD # Voids 1 2 - Labs CBC & Chem 7: 04/10/24 15:28 04/10/24 15:28 Labs: Abnormal Lab Results - Last 24 Hours (Table) 04/11/24 Range/Units 13:50 Fluid Appearance Cloudy A (Clear) Microbiology - Last 24 Hours (Table) 04/11/24 00:00 Gram Stain - Preliminary Dialysate Body Fluid Culture - Preliminary 04/10/24 16:45 Gram Stain - Preliminary Dialysate Body Fluid Culture - Preliminary 04/10/24 15:56 Blood Culture - Preliminary Blood 04/10/24 15:41 Blood Culture - Preliminary Blood Assessment and Plan Plan: Assessment: 1. End-stage renal disease maintained on peritoneal dialysis. 2. PD associated peritonitis. Dialysate WBC count 3176 with 71% PMNs dated April 10, 2024; cell count 1871 but 93% PMNs dated April 11, 2024. Culture remains negative. 3. Coronary disease with cardiac stenting. 4. Anemia of chronic kidney disease. Stable. 5. Hyponatremia secondary to chronic kidney disease. Plan: Maintain current PD exchanges with 2 L every 6 hours with 1.5% dextrose solution. Maintain Bumex. Started on intraperitoneal vancomycin and Fortaz April 10, 2024. Continue with daily Fortaz. Add antifungal as well. Repeat dialysis cell count culture and Gram stain today. Encouraged oral intake, particularly protein. Maintain 1500 cc fluid restriction. Potential discharge home today. Patient will continue with intraperitoneal antibiotics for 2 to 3 weeks. To also continue fluconazole. Dialysate cell count and culture will be repeated again in 2 to 3 days to make sure peritonitis is resolving.
[2024-04-12 12:37] VITALS: BP 110/67; PULSE 83; TEMP 97.8
[2024-04-12] MEDS: FLUCONAZOLE 100 MG TAB PO ONE (12:43)
[2024-04-12] MEDS ORDERED: LEVOFLOXACIN 500MG-D5W PMX 500 MG in DEXTROSE/WATER 1 100ML.BAG IVPB SCH (16:00)
[2024-04-12] MEDS ORDERED: MAGNESIUM OXIDE 400 MG TAB PO SCH (22:00)
[2024-04-13] MEDS ORDERED: FLUCONAZOLE 100 MG TAB PO SCH (09:00)
== END 2024-04-12 18:29 | disposition home health service (06) | DRG 919 ==
LOC: EC 14:02 → 5NMEDONC 17:02
PROVIDERS: ADMIT Internal Medicine; ATTEND Internal Medicine
PROC: 3E1M39Z Irrigation of Peritoneal Cavity using Dialysate, Percutaneous Approach (ICD-10-PCS; principal; 2024-04-11)
DX: T85.71XA Infection and inflammatory reaction due to peritoneal dialysis catheter, initial encounter (principal); K65.9 Peritonitis, unspecified; N18.6 End stage renal disease; E87.1 Hypo-osmolality and hyponatremia; I13.2 Hypertensive heart and chronic kidney disease with heart failure and with stage 5 chronic kidney disease, or end stage renal disease; Z16.24 Resistance to multiple antibiotics; D63.1 Anemia in chronic kidney disease; E11.22 Type 2 diabetes mellitus with diabetic chronic kidney disease; E11.36 Type 2 diabetes mellitus with diabetic cataract; I25.5 Ischemic cardiomyopathy; I50.9 Heart failure, unspecified; K44.9 Diaphragmatic hernia without obstruction or gangrene; E78.5 Hyperlipidemia, unspecified; B96.20 Unspecified Escherichia coli [E. coli] as the cause of diseases classified elsewhere; I25.10 Atherosclerotic heart disease of native coronary artery without angina pectoris; Z99.2 Dependence on renal dialysis; I25.2 Old myocardial infarction; Z79.02 Long term (current) use of antithrombotics/antiplatelets; Z79.82 Long term (current) use of aspirin; Z79.899 Other long term (current) drug therapy; Z95.5 Presence of coronary angioplasty implant and graft; Z98.1 Arthrodesis status; Z98.41 Cataract extraction status, right eye; Z98.42 Cataract extraction status, left eye; Z87.891 Personal history of nicotine dependence; Z88.2 Allergy status to sulfonamides; Z88.8 Allergy status to other drugs, medicaments and biological substances
CPT/HCPCS: 36415; 80053; 83605; 83735; 85025; 86140; 87040; 87070; 87077; 87186; 87205; 89050; 93005; 96365; 96366; 99285

== ENCOUNTER → 2024-08-25 | Outpatient (CLI) | payer MEDICARE, BC ==
[2024-08-25 14:42] VITALS: BP 89/55; PULSE 75; RESP 16; TEMP 97.6
[2024-08-25] MEDS: SODIUM CHLORIDE 0.9% 500 ML 500 ML in EMPTY BAG 1 BAG IV PRN (14:42)
[2024-08-25] MEDS: ALBUMIN HUMAN 25% 50 ML in EMPTY BAG 1 BAG IVPB NR (14:43)
== END ==
LOC: PROCWHC3 14:17
PROVIDERS: ATTEND Internal Medicine
DX: E43 Unspecified severe protein-calorie malnutrition (principal)
CPT/HCPCS: 96365; P9047; 96366

== ENCOUNTER 2024-09-02 18:04 | Emergency (ER) | payer MEDICARE, BC ==
[2024-09-02 18:14] VITALS: TEMP 97.9
--- NOTE | 2024-09-02 19:19 | XR ---
EXAMINATION TYPE: XR lumbar spine 2 or 3V DATE OF EXAM: 09/02/2024 7:12 PM COMPARISON: None. CLINICAL INDICATION: Female, 79 years old with history of fall, TECHNIQUE: 3 views of the lumbar spine submitted. FINDINGS: There are 5 lumbar type vertebral bodies identified. The lumbar spine shows satisfactory alignment without evidence of acute fracture or dislocation. Vertebral body heights are within normal limits. Severe degenerative disc space narrowing at virtually all levels greatest at L2-3, L4-5 L5-S 1. There is endplate sclerosis seen as well as ventral and dorsal spondylosis. Moderate facet joint a rthropathy. Grade 1 anterolisthesis L4 and L5 of 4 mm. The overlying soft tissue appears unremarkable . IMPRESSION: Degenerative changes without evidence for acute fracture. [facility], , 09/02/2024 7:17 PM
--- NOTE | 2024-09-02 19:20 | XR ---
EXAMINATION TYPE: XR Hip LT and AP Pelvis DATE OF EXAM: 09/02/2024 7:12 PM COMPARISON: None. CLINICAL INDICATION: Female, 79 years old with history of fall, pain TECHNIQUE: XR Hip LT and AP Pelvis views were obtained. AP Pelvis also obtained. FINDINGS: There is no acute fracture/dislocation evident. The joint space appears mildly narrowed. The overlying soft tissue appears unremarkable. IMPRESSION: No acute fracture or dislocation. [facility], , 09/02/2024 7:18 PM
--- NOTE | 2024-09-02 19:22 | XR ---
EXAMINATION TYPE: XR sacrum coccyx DATE OF EXAM: 09/02/2024 7:12 PM COMPARISON: None. CLINICAL INDICATION: Female, 79 years old with history of fall, pain TECHNIQUE: XR sacrum coccyx views were obtained FINDINGS: Sacral alae appear symmetric. No evidence for fracture or bony lesion. Sacroiliac joints are within normal limits. Visualized coccygeal segments are free of fracture or lesion. Peritoneal dialysis ca theter noted. IMPRESSION: No displaced fracture seen at this time. [facility], , 09/02/2024 7:19 PM
--- NOTE | 2024-09-02 19:29 | ED ---
General Adult HPI - General Chief complaint: Fall Stated complaint: FALL Time Seen by Provider: 09/02/24 18:12 Source: patient, RN notes reviewed, old records reviewed Mode of arrival: ambulatory Limitations: no limitations - History of Present Illness Initial comments: 79-year-old female presents with left hip pain and low back pain after fall which occurred 2 nights prior. Patient has had pain with ambulation and has had minimal weightbearing since the fall. There was no head or neck trauma. Pain is predominantly in the left hip. Worse with movement. Worse with weightbearing. - Related Data Home Medications Medication Instructions Recorded Confirmed Famotidine [Pepcid] 20 mg PO DAILY 02/26/20 08/25/24 Atorvastatin [Lipitor] 40 mg PO DAILY 01/03/23 08/25/24 Cholecalciferol [Vitamin D3 (25 25 mcg PO DAILY 01/03/23 08/25/24 Mcg = 1000 Iu)] Metoprolol Succinate [Toprol XL] 50 mg PO HS 01/03/23 08/25/24 calcitrioL 0.25 mcg PO MOTH 01/03/23 08/25/24 Aspirin EC [Ecotrin Low Dose] 81 mg PO DAILY 02/13/23 08/25/24 FLUoxetine HCL 40 mg PO DAILY 10/23/23 08/25/24 Folic Acid/Vit B Complex and C 0.8 mg PO DAILY 10/23/23 08/25/24 [Nephro-Trang Tablet] Magnesium Oxide [Mag-Ox] 400 mg PO MOTUWETHFR@2200 10/23/23 08/25/24 Pantoprazole [Protonix] 40 mg PO BID 10/23/23 08/25/24 Potassium Chloride ER [K-Dur 10] 10 meq PO MOWEFR 10/23/23 08/25/24 Bumetanide [BUMEX] 2 mg PO DAILY 04/10/24 08/25/24 Gentamicin 0.1% Cream 1 applic TOPICAL DIRECTED PRN 04/10/24 08/25/24 Lactulose 10 gm PO HS PRN 04/10/24 08/25/24 risperiDONE [RisperDAL] 0.25 mg PO BID 04/10/24 08/25/24 Calcium Acetate [PhosLo] 1,334 mg PO TID 04/11/24 08/25/24 Ondansetron Odt [Zofran ODT] 4 mg PO Q6HR PRN 04/11/24 08/25/24 Previous Rx's Medication Instructions Recorded Fluconazole [Diflucan] 100 mg PO DAILY 14 Days #14 tab 04/12/24 Acetaminophen-Codeine 300-30mg 1 tab PO Q6H PRN 3 Days #12 tablet 09/02/24 [Tylenol w/codeine #3] Allergies Allergy/AdvReac Type Severity Reaction Status Date / Time celecoxib [From Celebrex] Allergy Rash/Hives Verified 08/25/24 14:35 cephalexin [From Keflex] Allergy Unknown Verified 08/25/24 14:35 nitrofurantoin Allergy Rash all Verified 08/25/24 14:35 [From Macrobid] over nitrofurantoin Allergy Rash all Verified 08/25/24 14:35 macrocrystalline over [From Macrobid] sulfamethoxazole Allergy Face Verified 08/25/24 14:35 [From Bactrim] swelling trimethoprim [From Bactrim] Allergy Face Verified 08/25/24 14:35 swelling Review of Systems ROS Statement: Those systems with pertinent positive or pertinent negative responses have been documented in the HPI. ROS Other: All systems not noted in ROS Statement are negative. Past Medical History Past Medical History: Coronary Artery Disease (CAD), Heart Failure, Eye Disorder, GERD/Reflux, GI Bleed, Hyperlipidemia, Hypertension, Myocardial Infarction (TX), Musculoskeletal Disorder, Osteoarthritis (OA), Renal Disease Additional Past Medical History / Comment(s): anemia-iron deficiency, chronic kidney disease stage V- on CAPD, diverticular disease, osteoporosis, cataract, hiatal hernia, ischemic cardiomyopathy, bilateral renal nodules, UTIs Last Myocardial Infarction Date:: 11/27/22 History of Any Multi-Drug Resistant Organisms: ESBL Date of last positivie culture/infection: 10/23/23 ESBL E.coli MDRO Source:: Urine Past Surgical History: Heart Catheterization With Stent, Orthopedic Surgery, Tonsillectomy, Tubal Ligation Additional Past Surgical History / Comment(s): removal ovaries, bilateral cataract removal with lens implants, cervical spinal fusion, cervical steroid injection, PCI Past Anesthesia/Blood Transfusion Reactions: No Reported Reaction Additional Past Anesthesia/Blood Transfusion Reaction / Comment(s): N/A Date of Last Stent Placement:: 11/27/22 Past Psychological History: Anxiety Smoking Status: Former smoker - Past Family History Mother Family Medical History: Osteoarthritis (OA) Additional Family Medical History / Comment(s): Sister(s) Family Medical History: Cancer Additional Family Medical History / Comment(s): breast cancer Father Family Medical History: No Reported History Additional Family Medical History / Comment(s): Brother(s) Family Medical History: Osteoarthritis (OA) Daughter(s) Family Medical History: No Reported History Son(s) Family Medical History: No Reported History General Exam Limitations: no limitations General appearance: alert, in no apparent distress Head exam: Present: atraumatic, normocephalic Eye exam: Present: normal appearance, PERRL ENT exam: Present: normal exam Neck exam: Present: normal inspection Respiratory exam: Present: normal lung sounds bilaterally. Absent: respiratory distress, wheezes Cardiovascular Exam: Present: regular rate, normal rhythm GI/Abdominal exam: Present: soft. Absent: distended, tenderness Extremities exam: Present: normal capillary refill. Absent: full ROM (Pain with range of motion of the left hip, no shortening, distal pulses intact) Back exam: Absent: vertebral tenderness Neurological exam: Present: alert, oriented X3 Psychiatric exam: Present: normal affect, normal mood Skin exam: Present: warm, dry, intact. Absent: cyanosis, diaphoretic Course Vital Signs 09/02/24 09/02/24 18:11 20:34 Temperature 97.9 F Pulse Rate 77 75 Respiratory 16 17 Rate Blood Pressure 105/72 104/67 O2 Sat by Pulse 92 L 96 Oximetry Medical Decision Making - Medical Decision Making Was pt. sent in by a medical professional or institution (Dr. PA, MARBLE HELPER, urgent care, hospital, or assisted...) When possible be specific @ -No Did you speak to anyone other than the patient for history (EMS, parent, family, police, friend...)? What history was obtained from this source @ -No Did you review nursing and triage notes (agree or disagree)? Why? @ -I reviewed and agree with nursing and triage notes Were old charts reviewed (outside hosp., previous admission, EMS record, old EKG, old radiological studies, urgent care reports/EKG's, assisted records)? Report findings @ -No old charts were reviewed Differential Musculoskeletal Muscular strain, contusion, ligament sprain, fracture, arthritis, septic arthritis, bursitis, cellulitis, muscle spasm, nerve compression, DVT, arterial occlusion, herpes zoster, electrolyte abnormality, tumor.... This is not meant to be in all inclusive list EKG interpreted by me (3pts min.). @ -As above X-rays interpreted by me (1pt min.). @ -X-rays of the lumbar spine, pelvis and left hip, there is concern for cortical irregularity in the inferior pubic rami. CT interpreted by me (1pt min.). @CT of the hip and pelvis does confirm inferior pubic rami fracture on the left consistent with the patient's pain U/S interpreted by me (1pt. min.). @ -None done What testing was considered but not performed or refused? (CT, X-rays, U/S, labs)? Why? @ -None What meds were considered but not given or refused? Why? @ -None Did you discuss the management of the patient with other professionals (professionals i.e. , PA, MARBLE HELPER, lab, RT, psych nurse, social science research assistant, plan coordinator, teacher, chief information security officer, case assistant)? Give summary @ -Case discussed with Dr. Ventura covering for orthopedics will see the patient on an outpatient basis. Was smoking cessation discussed for >3mins.? @ -No Was critical care preformed (if so, how long)? @ -No Were there social determinants of health that impacted care today? How? (Homelessness, low income, unemployed, alcoholism, drug addiction, transportation, low edu. Level, literacy, decrease access to med. care, longterm, rehab)? @ -No Was there de-escalation of care discussed even if they declined (Discuss DNR or withdrawal of care, Hospice)? DNR status @ -No What co-morbidities impacted this encounter? (DM, HTN, Smoking, COPD, CAD, Cancer, CVA, ARF, Chemo, Hep., AIDS, mental health diagnosis, sleep apnea, morbi d obesity)? @ -None Was patient admitted / discharged? Hospital course, mention meds given and route, prescriptions, significant lab abnormalities, going to OR and other pertinent info. @ -[79-year-old female with left hip pain with ambulation over the past 2 days. Patient is able to walk with a walker. She has pain with range of motion of the left hip. X-rays were concerning for inferior pubic rami fracture and this is confirmed with CT imaging. I did have a lengthy discussion with the family and patient regarding inpatient versus home with walker and close orthopedic follow-up as an outpatient. The family and patient prefer discharge at this time. I discussed case with Dr. Ventura who will see the patient this coming week. Undiagnosed new problem with uncertain prognosis? @ -No Drug Therapy requiring intensive monitoring for toxicity (Heparin, Nitro, Insulin, Cardizem)? @ -No Were any procedures done? @ -No Diagnosis/symptom? @Inferior pubic rami fracture Acute, or Chronic, or Acute on Chronic? @Acute Uncomplicated (without systemic symptoms) or Complicated (systemic symptoms)? @ -Default Side effects of treatment? @ -No Exacerbation, Progression, or Severe Exacerbation? @ -No Poses a threat to life or bodily function? How? (Chest pain, [place], [place], pneumonia, PE, COPD, DKA, ARF, appy, cholecystitis, CVA, Diverticulitis, Homicidal, Suicidal, threat to staff... and all critical care pts) @ -[Moderate risk, pelvic fracture in the elderly Disposition Clinical Impression: Fall, Inferior pubic ramus fracture Disposition: HOME SELF-CARE Condition: Fair Instructions (If sedation given, give patient instructions): Pelvic Fracture (ED), Fall Prevention for Older Adults (ED) Prescriptions: Acetaminophen-Codeine 300-30mg [Tylenol w/codeine #3] 1 tab PO Q6H PRN 3 Days #12 tablet PRN Reason: Pain Is patient prescribed a controlled substance at d/c from ED?: No Referrals: Evan Baez MD [Primary Care Provider] - 1-2 days Cabrera Ventura DO [Doctor of Osteopathic Medicine] - 1-2 days Time of Disposition: 21:09
--- NOTE | 2024-09-02 20:30 | CT ---
EXAMINATION TYPE: CT pelvis wo con, CT hip LT wo con DATE OF EXAM: 09/02/2024 COMPARISON: None CLINICAL INDICATION: Female, 79 years old with history of fall/pain; PHH, FELL 2 DAYS AGO/LEFT HIP PA IN CT DLP: 441.1 COMBINED (accession [id number]), 441.1 (accession [id number]) mGycm Automated exposure control for dose reduction was used. Unenhanced CT of the pelvis and left hip was performed without contrast media. Bone and soft tissue window settings are reviewed. FINDINGS: There is fracture of the inferior pubic ramus on the left. Mild comminution noted. No additional frac ture seen within the [id number]. The proximal left femur is intact. Small left-sided joint effusio n is present. There is evidence of free fluid within the pelvis. Dialysis catheter is noted to reside within the pelvis. Uterus is atrophic. Vascular ossifications are identified. Degenerative changes l umbar spine. IMPRESSION: Mildly comminuted fracture inferior pubic ramus on the left. [facility], , 09/02/2024 8:28 PM
[2024-09-02 20:41] VITALS: PULSE 75; RESP 17
[2024-09-02 21:30] VITALS: BP 106/75
== END 2024-09-02 21:30 | disposition home or self-care (01) ==
LOC: EC 18:04
DX: S32.592A Other specified fracture of left pubis, initial encounter for closed fracture (principal); Z88.1 Allergy status to other antibiotic agents; Z88.2 Allergy status to sulfonamides; Z88.6 Allergy status to analgesic agent; Z88.8 Allergy status to other drugs, medicaments and biological substances; Z87.891 Personal history of nicotine dependence; W19.XXXA Unspecified fall, initial encounter
CPT/HCPCS: 72100; 72192; 72220; 73502; 99284

== ENCOUNTER → 2024-09-16 | Outpatient (CLI) | payer MEDICARE, BC ==
--- NOTE | 2024-09-16 15:48 | US ---
EXAMINATION TYPE: US abdomen complete DATE OF EXAM: 09/16/2024 COMPARISON: US(09/03/2023) CLINICAL INDICATION: Female, 79 years old with history of K74.60 Unspecified cirrhosis of liver; Cirr hosis of liver, pt on kidney dialysis, Constipation TECHNIQUE: Grayscale and color Doppler imaging of the abdomen was performed. FINDINGS: EXAM MEASUREMENTS: Liver Length: 13.4 cm Gallbladder Wall: 0.3 cm CBD: 0.7 cm, color Doppler imaging was utilized to isolate the common bile duct for measurement. Spleen: 6.6 cm Right Kidney: 7.1x3.6x3.6 cm Left Kidney: 7.5x3.5x3.6 cm FAGOT HEATER HELPER NOTES: Very limited exam due to overlying bowel/gas Pt unable to roll completely due to broken pelvis Pancreas: Tail obscured by overlying bowel gas Liver: Slightly nodular borders Gallbladder: Low level echoes visualized, suggested of sludge Evidence for sonographic Soto's sign: No CBD: wnl Spleen: wnl Right Kidney: Multiple anechoic areas seen Largest: 2.3x1.9x2.2cm Left Kidney: Multiple anechoic areas seen Largest: 3.0x2.0x2.0cm Upper IVC: partially obscured by bowel gas Abd Aorta: partially obscured by bowel gas Fluid seen throughout abdomen due to pt currently on kidney dialysis The upper IVC and abdominal aorta are partially obscured by overlying bowel gas. Visualized portions of the pancreas is unremarkable. Slight nodular appearance of the liver. No focal lesion identified. Mild gallbladder wall thickening with biliary sludge. Negative sonographic Soto sign. Common bile d uct is within normal limits. Bilateral simple renal cysts. No hydronephrosis or shadowing renal calcu li. Moderate volume ascites. The spleen is within normal limits. IMPRESSION: 1. Hepatic cirrhosis with moderate volume ascites. 2. Gallbladder sludge without definitive ultrasound evidence for acute cholecystitis. 3. Bilateral simple renal cysts. [facility], , 09/16/2024 3:46 PM
== END | disposition home or self-care (01) ==
LOC: RADUSWWP 14:15
PROVIDERS: ATTEND Internal Medicine Gastroenterology
DX: K74.60 Unspecified cirrhosis of liver (principal); R18.8 Other ascites; N28.1 Cyst of kidney, acquired; K82.8 Other specified diseases of gallbladder
CPT/HCPCS: 76700

== ENCOUNTER 2024-09-21 12:48 | Inpatient (IN) | payer MEDICARE, BC ==
--- NOTE | 2024-09-21 13:26 | ED ---
General Adult HPI - General Chief complaint: Abdominal Pain Stated complaint: Abd pain Time Seen by Provider: 09/21/24 13:20 Source: patient, EMS, RN notes reviewed, old records reviewed Mode of arrival: EMS - History of Present Illness Initial comments: This is an 79-year-old female who presents to the emergency department for right lower quadrant abdominal pain. Patient is a peritoneal dialysis patient. At this time no family is with the patient. According to EMS the patient does have a nonsurgical pelvis fracture. Patient is alert and oriented x 2 however when asked what hurts she responds multiple times everything. If family comes will get further history. When family arrived they stated she did fall a few weeks ago and had a rami fracture. She also has been slowly getting worse mentally they think she is more lethargic and does not respond as quickly she has in the past. - Related Data Home Medications Medication Instructions Recorded Confirmed Famotidine [Pepcid] 20 mg PO DAILY 02/26/20 08/25/24 Atorvastatin [Lipitor] 40 mg PO DAILY 01/03/23 08/25/24 Cholecalciferol [Vitamin D3 (25 25 mcg PO DAILY 01/03/23 08/25/24 Mcg = 1000 Iu)] Metoprolol Succinate [Toprol XL] 50 mg PO HS 01/03/23 08/25/24 calcitrioL 0.25 mcg PO MOTH 01/03/23 08/25/24 Aspirin EC [Ecotrin Low Dose] 81 mg PO DAILY 02/13/23 08/25/24 FLUoxetine HCL 40 mg PO DAILY 10/23/23 08/25/24 Folic Acid/Vit B Complex and C 0.8 mg PO DAILY 10/23/23 08/25/24 [Nephro-Trang Tablet] Magnesium Oxide [Mag-Ox] 400 mg PO MOTUWETHFR@2200 10/23/23 08/25/24 Pantoprazole [Protonix] 40 mg PO BID 10/23/23 08/25/24 Potassium Chloride ER [K-Dur 10] 10 meq PO MOWEFR 10/23/23 08/25/24 Bumetanide [BUMEX] 2 mg PO DAILY 04/10/24 08/25/24 Gentamicin 0.1% Cream 1 applic TOPICAL DIRECTED PRN 04/10/24 08/25/24 Lactulose 10 gm PO HS PRN 04/10/24 08/25/24 risperiDONE [RisperDAL] 0.25 mg PO BID 04/10/24 08/25/24 Calcium Acetate [PhosLo] 1,334 mg PO TID 04/11/24 08/25/24 Ondansetron Odt [Zofran ODT] 4 mg PO Q6HR PRN 04/11/24 08/25/24 Previous Rx's Medication Instructions Recorded Fluconazole [Diflucan] 100 mg PO DAILY 14 Days #14 tab 04/12/24 Acetaminophen-Codeine 300-30mg 1 tab PO Q6H PRN 3 Days #12 tablet 09/02/24 [Tylenol w/codeine #3] Allergies Allergy/AdvReac Type Severity Reaction Status Date / Time celecoxib [From Celebrex] Allergy Rash/Hives Verified 09/21/24 15:43 cephalexin [From Keflex] Allergy Unknown Verified 09/21/24 15:43 nitrofurantoin Allergy Rash all Verified 09/21/24 15:43 [From Macrobid] over nitrofurantoin Allergy Rash all Verified 09/21/24 15:43 macrocrystalline over [From Macrobid] sulfamethoxazole Allergy Face Verified 09/21/24 15:43 [From Bactrim] swelling trimethoprim [From Bactrim] Allergy Face Verified 09/21/24 15:43 swelling Review of Systems ROS Statement: Those systems with pertinent positive or pertinent negative responses have been documented in the HPI. ROS Other: All systems not noted in ROS Statement are negative. Past Medical History Past Medical History: Coronary Artery Disease (CAD), Heart Failure, Eye Disorder, GERD/Reflux, GI Bleed, Hyperlipidemia, Hypertension, Myocardial Infarction ([place]), Musculoskeletal Disorder, Osteoarthritis (OA), Renal Disease Additional Past Medical History / Comment(s): anemia-iron deficiency, chronic kidney disease stage V- on CAPD, diverticular disease, osteoporosis, cataract, hiatal hernia, ischemic cardiomyopathy, bilateral renal nodules, UTIs Last Myocardial Infarction Date:: 11/27/22 History of Any Multi-Drug Resistant Organisms: ESBL Date of last positivie culture/infection: 10/23/23 ESBL E.coli MDRO Source:: Urine Past Surgical History: Heart Catheterization With Stent, Orthopedic Surgery, Tonsillectomy, Tubal Ligation Additional Past Surgical History / Comment(s): removal ovaries, bilateral cataract removal with lens implants, cervical spinal fusion, cervical steroid injection, PCI Past Anesthesia/Blood Transfusion Reactions: No Reported Reaction Additional Past Anesthesia/Blood Transfusion Reaction / Comment(s): N/A Date of Last Stent Placement:: 11/27/22 Past Psychological History: Anxiety Smoking Status: Former smoker - Past Family History Mother Family Medical History: Osteoarthritis (OA) Additional Family Medical History / Comment(s): Sister(s) Family Medical History: Cancer Additional Family Medical History / Comment(s): breast cancer Father Family Medical History: No Reported History Additional Family Medical History / Comment(s): Brother(s) Family Medical History: Osteoarthritis (OA) Daughter(s) Family Medical History: No Reported History Son(s) Family Medical History: No Reported History General Exam - General Exam Comments Initial Comments: GENERAL: Patient is cachectic. Patient is nontoxic and well-hydrated and is in mild distress. ENT: Neck is soft and supple. No significant lymphadenopathy is noted. Oropharynx is clear. Moist mucous membranes. Neck has full range of motion without justin citing any pain. EYES: The sclera were anicteric and conjunctiva were pink and moist. Extraocular movements were intact and pupils were equal round and reactive to light. Eyelids were unremarkable. PULMONARY: Unlabored respirations. Good breath sounds bilaterally. No audible rales rhonchi or wheezing was noted. CARDIOVASCULAR: There is a regular rate and rhythm without any murmurs gallops or rubs. ABDOMEN: Soft and nontender with normal bowel sounds. SKIN: Skin is clear with no lesions or rashes and otherwise unremarkable. NEUROLOGIC: Patient is alert and oriented x 2. Cranial nerves II through XII are grossly intact. Motor and sensory are also intact. Normal speech, volume and content. Symmetrical smile. MUSCULOSKELETAL: Normal extremities with adequate strength and full range of motion. LYMPHATICS: No significant lymphadenopathy is noted PSYCHIATRIC: Normal psychiatric evaluation. Course Vital Signs 09/21/24 09/21/24 13:16 16:26 Temperature 97.4 F L Pulse Rate 80 92 Respiratory 16 16 Rate Blood Pressure 106/56 92/55 O2 Sat by Pulse 88 L 92 L Oximetry Procedures - Sepsis Sepsis Focused Exam #1 Time Sepsis Criteria Met: 16:00 Sepsis Focused Exam Date: 09/21/24 Sepsis Focused Exam Time: 17:42 Sepsis Focused Exam Complete: Yes Vital Signs & RN Notes Reviewed: Yes Capillary Refill: < 2 Seconds: Fingers Peripheral Pulses: Normal: Radial (R) Skin Color: Normal for Patient Respiratory Exam: normal lung sounds Cardiovascular Exam: regular rate Medical Decision Making - Medical Decision Making EKG is interpreted by myself. EKG is of poor quality but and better when could not be obtained at this time. The patient's EKG shows sinus rhythm at 76 bpm SD 167 QRS is 102 QT interval is 243 QTc is 273. Patient's EKG shows no ST segment ovation or depression Was pt. sent in by a medical professional or institution (, MIGUEL, SOFT SUGAR OPERATOR HEAD, urgent care, hospital, or fpc...) When possible be specific @ -No Did you speak to anyone other than the patient for history (EMS, parent, family, police, friend...)? What history was obtained from this source @ -No Did you review nursing and triage notes (agree or disagree)? Why? @ -I reviewed and agree with nursing and triage notes Were old charts reviewed (outside hosp., previous admission, EMS record, old EKG, old radiological studies, urgent care reports/EKG's, fpc records)? Report findings @ -No old charts were reviewed Differential Diagnosis? @ -Differential Altered Mental Status: Hypoglycemia, DKA, hypercapnia, ETOH, overdose, CO poisoning, trauma, myxedema coma, HTN encephalopathy, infection, encephalitis, psychosis, intercranial hemorrhage, hepatic encephalopathy, meningitis, CVA, this is not meant to be an all-inclusive list EKG interpreted by me (3pts min.). @ -As above X-rays interpreted by me (1pt min.). @ -None done CT interpreted by me (1pt min.). @ -CT of the abdomen pelvis shows no acute abnormality U/S interpreted by me (1pt. min.). @ -None done What testing was considered but not performed or refused? (CT, X-rays, U/S, labs)? Why? @ -None What meds were considered but not given or refused? Why? @ -None Did you discuss the management of the patient with other professionals (professionals i.e. MIGUEL Jimenez, SOFT SUGAR OPERATOR HEAD, lab, RT, psych nurse, social worker assistant, weapons electrical engineering officer, teacher, special weapons and tactics officer, hospice case manager)? Give summary @ -Family arrived and I spoke with them and they thought the patient was altered mentally lately. I spoke with [facility] who family requested and patient will be admitted to [facility] Was smoking cessation discussed for >3mins.? @ -No Was critical care preformed (if so, how long)? @ -35 minutes Were there social determinants of health that impacted care today? How? (Homelessness, low income, unemployed, alcoholism, drug addiction, transportation, low edu. Level, literacy, decrease access to med. care, assisted, rehab)? @ -No Was there de-escalation of care discussed even if they declined (Discuss DNR or withdrawal of care, Hospice)? DNR status @ -No What co-morbidities impacted this encounter? (DM, HTN, Smoking, COPD, CAD, Cancer, CVA, ARF, Chemo, Hep., AIDS, mental health diagnosis, sleep apnea, morbid obesity)? @ -None Was patient admitted / discharged? Hospital course, mention meds given and route, prescriptions, significant lab abnormalities, going to OR and other pertinent info. @ -Patient potassium and sodium are low. Patient did receive 500 cc of normal saline and replacement for potassium. Patient was not going to get the 30 mL/kg because she is a dialysis patient. Patient also had a UTI which was given antibiotics and the patient's lactic was 4 so the patient is considered septic Undiagnosed new problem with uncertain prognosis? @ -No Drug Therapy requiring intensive monitoring for toxicity (Heparin, Nitro, Insulin, Cardizem)? @ -No Were any procedures done? @ -No Diagnosis/symptom? @ -Sepsis Acute, or Chronic, or Acute on Chronic? @ -Acute Uncomplicated (without systemic symptoms) or Complicated (systemic symptoms)? @ -Complicated Side effects of treatment? @ -No Exacerbation, Progression, or Severe Exacerbation? @ -No Poses a threat to life or bodily function? How? (Chest pain, [place], [place], pneumonia, PE, COPD, DKA, ARF, appy, cholecystitis, CVA, Diverticulitis, Homicidal, Suicidal, threat to staff... and all critical care pts) @ -Yes this can lead to poor perfusion and endorgan dysfunction Diagnosis/symptom? @ -Urinary tract infection Acute, or Chronic, or Acute on Chronic? @ -Acute Uncomplicated (without systemic symptoms) or Complicated (systemic symptoms)? @ -Complicated Side effects of treatment? @ -None Exacerbation, Progression, or Severe Exacerbation] @ -No Poses a threat to life or bodily function? @ -Yes this could lead to sepsis Diagnosis/symptom? @ -Hypokalemia Acute, or Chronic, or Acute on Chronic? @ -Acute Uncomplicated (without systemic symptoms) or Complicated (systemic symptoms)? @ -Complicated Side effects of treatment? @ -None Exacerbation, Progression, or Severe Exacerbation] @ -No Poses a threat to life or bodily function? @ -No Diagnosis/symptom? @ -Hyponatremia Acute, or Chronic, or Acute on Chronic? @ -Acute Uncomplicated (without systemic symptoms) or Complicated (systemic symptoms)? @ -Complicated Side effects of treatment? @ -None Exacerbation, Progression, or Severe Exacerbation] @ -No Poses a threat to life or bodily function? @ -No - Lab Data Result diagrams: 09/21/24 14:07 09/21/24 14:07 Lab Results 09/21/24 09/21/24 09/21/24 Range/Units 14:07 14:07 14:07 WBC 12.7 H (3.8-10.6) k/uL RBC 3.24 L (3.80-5.40) m/uL Hgb 10.3 L (11.4-16.0) gm/dL Hct 32.1 L (34.0-46.0) % MCV 99.3 (80.0-100.0) fL MCH 31.9 (25.0-35.0) pg MCHC 32.1 (31.0-37.0) g/dL RDW 17.7 H (11.5-15.5) % Plt Count 481 H (150-450) k/uL MPV 7.1 Neutrophils % 82 % Lymphocytes % 10 % Monocytes % 5 % Eosinophils % 1 % Basophils % 0 % Neutrophils # 10.4 H (1.3-7.7) k/uL Lymphocytes # 1.3 (1.0-4.8) k/uL Monocytes # 0.6 (0-1.0) k/uL Eosinophils # 0.2 (0-0.7) k/uL Basophils # 0.0 (0-0.2) k/uL Anisocytosis Slight Macrocytosis Slight Sodium 128 L (137-145) mmol/L Potassium 2.5 L* (3.5-5.1) mmol/L Chloride 91 L (98-107) mmol/L Carbon Dioxide 27 (22-30) mmol/L Anion Gap 10 mmol/L BUN 28 H (7-17) mg/dL Creatinine 5.20 H (0.52-1.04) mg/dL Est GFR (CKD-EPI)AfAm 8 (>60 ml/min/1.73 sqM) Est GFR (CKD-EPI)NonAf 7 (>60 ml/min/1.73 sqM) Glucose 107 H (74-99) mg/dL Lactic Ac Sepsis Rflx Plasma Lactic Acid Omar 4.0 H* (0.7-2.0) mmol/L Calcium 8.5 (8.4-10.2) mg/dL Total Bilirubin 1.3 (0.2-1.3) mg/dL AST 109 H (14-36) U/L ALT 36 H (4-34) U/L Alkaline Phosphatase 464 H (38-126) U/L Total Protein 5.1 L (6.3-8.2) g/dL Albumin 1.9 L (3.5-5.0) g/dL Amylase <30 L (30-110) U/L Lipase 121 (23-300) U/L Urine Color Urine Appearance (Clear) Urine pH (5.0-8.0) Ur Specific [place] (1.001-1.035) Urine Protein (Negative) Urine Glucose (UA) (Negative) Urine Ketones (Negative) Urine Blood (Negative) Urine Nitrite (Negative) Urine Bilirubin (Negative) Urine Urobilinogen (<2.0) mg/dL Ur Leukocyte Esterase (Negative) Urine RBC (0-5) /hpf Urine WBC (0-5) /hpf Ur Squamous Epith Cells (0-4) /hpf Urine Bacteria (None) /hpf 09/21/24 09/21/24 Range/Units 14:46 14:52 WBC (3.8-10.6) k/uL RBC (3.80-5.40) m/uL Hgb (11.4-16.0) gm/dL Hct (34.0-46.0) % MCV (80.0-100.0) fL MCH (25.0-35.0) pg MCHC (31.0-37.0) g/dL RDW (11.5-15.5) % Plt Count (150-450) k/uL MPV Neutrophils % % Lymphocytes % % Monocytes % % Eosinophils % % Basophils % % Neutrophils # (1.3-7.7) k/uL Lymphocytes # (1.0-4.8) k/uL Monocytes # (0-1.0) k/uL Eosinophils # (0-0.7) k/uL Basophils # (0-0.2) k/uL Anisocytosis Macrocytosis Sodium (137-145) mmol/L Potassium (3.5-5.1) mmol/L Chloride (98-107) mmol/L Carbon Dioxide (22-30) mmol/L Anion Gap mmol/L BUN (7-17) mg/dL Creatinine (0.52-1.04) mg/dL Est GFR (CKD-EPI)AfAm (>60 ml/min/1.73 sqM) Est GFR (CKD-EPI)NonAf (>60 ml/min/1.73 sqM) Glucose (74-99) mg/dL Lactic Ac Sepsis Rflx Y Plasma Lactic Acid Omar (0.7-2.0) mmol/L Calcium (8.4-10.2) mg/dL Total Bilirubin (0.2-1.3) mg/dL AST (14-36) U/L ALT (4-34) U/L Alkaline Phosphatase (38-126) U/L Total Protein (6.3-8.2) g/dL Albumin (3.5-5.0) g/dL Amylase (30-110) U/L Lipase (23-300) U/L Urine Color Yellow Urine Appearance Turbid H (Clear) Urine pH 5.0 (5.0-8.0) Ur Specific [place] 1.027 (1.001-1.035) Urine Protein 1+ H (Negative) Urine Glucose (UA) Trace H (Negative) Urine Ketones Negative (Negative) Urine Blood Small H (Negative) Urine Nitrite Negative (Negative) Urine Bilirubin 1+ H (Negative) Urine Urobilinogen <2.0 (<2.0) mg/dL Ur Leukocyte Esterase Large H (Negative) Urine RBC 2 (0-5) /hpf Urine WBC 110 H (0-5) /hpf Ur Squamous Epith Cells 2 (0-4) /hpf Urine Bacteria Many H (None) /hpf Disposition Clinical Impression: Urinary tract infection, Sepsis, Hypokalemia, Hyponatremia Disposition: ADMITTED IP TO THIS HOSP Time of Disposition: 16:48
[2024-09-21 14:16] LABS: Anisocytosis Slight; Basophils % (A) 0 %; Eosinophils # (A) 0.2 k/uL (0-0.7); Eosinophils % (A) 1 %; HCT 32.1 % (34.0-46.0); HGB 10.3 gm/dL (11.4-16.0); Lymphocytes # (A) 1.3 k/uL (1.0-4.8); Lymphocytes % (A) 10 %; MCH 31.9 pg (25.0-35.0); MCHC 32.1 g/dL (31.0-37.0); MCV 99.3 fL (80.0-100.0); Macrocytosis Slight; Mean Platelet Volume 7.1; Monocytes # (A) 0.6 k/uL (0-1.0); Monocytes % (A) 5 %; Neutrophils # (A) 10.4 k/uL (1.3-7.7); Neutrophils % (A) 82 %; Platelet Count 481 k/uL (150-450); RBC 3.24 m/uL (3.80-5.40); RDW 17.7 % (11.5-15.5); WBC 12.7 k/uL (3.8-10.6)
[2024-09-21 14:46] LABS: ALT 36 U/L (4-34); AST 109 U/L (14-36); African American GFR (CKD) 8 (>60 ml/min/1.73 sqM); Albumin 1.9 g/dL (3.5-5.0); Alkaline Phosphatase 464 U/L (38-126); Amylase <30 U/L (30-110); Anion Gap 10 mmol/L; Blood Urea Nitrogen 28 mg/dL (7-17); Calcium 8.5 mg/dL (8.4-10.2); Carbon Dioxide 27 mmol/L (22-30); Chloride 91 mmol/L (98-107); Glucose 107 mg/dL (74-99); Lipase 121 U/L (23-300); Non-African American GFR(CKD) 7 (>60 ml/min/1.73 sqM); Sodium 128 mmol/L (137-145); Total Bilirubin 1.3 mg/dL (0.2-1.3); Total Protein 5.1 g/dL (6.3-8.2)
[2024-09-21 15:07] LABS: Potassium 2.5 mmol/L (3.5-5.1)
[2024-09-21 15:31] LABS: Appearance,Urine Turbid (Clear); Bacteria,Urine Many /hpf; Bilirubin,Urine 1+ (Negative); Blood,Urine Small (Negative); Color,Urine Yellow; Glucose,Urine (UA) Trace (Negative); Ketones,Urine Negative (Negative); Leukocyte Esterase,Urine Large (Negative); Nitrite,Urine Negative (Negative); Protein,Urine 1+ (Negative); RBC,Urine 2 /hpf (0-5); Specific Gravity,Urine 1.027 (1.001-1.035); Squamous Epithelial Cell,Urine 2 /hpf (0-4); Urobilinogen,Urine <2.0 mg/dL (<2.0); WBC,Urine 110 /hpf (0-5)
--- NOTE | 2024-09-21 15:58 | CT ---
EXAMINATION TYPE: CT abdomen pelvis wo con DATE OF EXAM: 09/21/2024 3:51 PM COMPARISON: 09/02/2024 CLINICAL INDICATION: Female, 79 years old with history of abdominal pain; abdominal pain. hx of recen t pelvis fx TECHNIQUE: Axial CT abdomen pelvis wo con;Sagittal and coronal reformats were created on a separate workstation. Contrast used: mL of , (none if empty) Oral contrast used: without Oral Contrast (none if empty) CT DLP: 316.4 mGycm, Automated exposure control for dose reduction was used. FINDINGS: LOWER CHEST: Small left pleural effusion. ABDOMEN LIVER: Nodular contour to liver. No evidence for mass. GALLBLADDER AND BILE DUCTS: Unremarkable. PANCREAS: Unremarkable. SPLEEN: Unremarkable. ADRENAL GLANDS: Unremarkable. KIDNEYS AND URETERS: No evidence of hydronephrosis or renal calculus. The ureters are unremarkable. B ilateral renal cortical probable cyst. PELVIS BLADDER: No evidence for wall thickening or mass given limitations of exam. REPRODUCTIVE: Unremarkable. ABDOMEN & PELVIS STOMACH AND BOWEL: No evidence of bowel obstruction. Scattered colonic diverticula. PERITONEUM/RETROPERITONEUM: No evidence of pneumoperitoneum. Small abdominal ascites. Peritoneal dial ysis catheter noted in the abdomen. VASCULATURE: Moderate atherosclerotic calcifications are present throughout the abdominal aorta and i ts branches. No evidence of aortic aneurysm. MUSCULOSKELETAL: Multiple fractures identified involving this left superior pubic ramus the left infe rior pubic ramus with displacement. Likely small left pelvic sidewall hematomas from prior fracture LYMPH NODES: No gross evidence for lymphadenopathy. SOFT TISSUE/ABDOMINAL WALL: Unremarkable IMPRESSION: 1. No evidence for acute abdominal process. 2. Nodular contour to liver suggestive of Hepatic cirrhosis with ascites. Peritoneal dialysis cathet er within the right abdomen. 3. Small left pleural effusion. 4. Colonic diverticulosis. 5. Severe coronary artery atherosclerosis. 6. Left superior and inferior pubic rami fractures with mild displacement. [facility], Workstation: [facility], 09/21/2024 3:55 PM
[2024-09-21] MEDS: cefTRIAXone IN SWFI 1,000 MG/10 ML SYRINGE IVP STA (16:19)
[2024-09-21] MEDS: POTASSIUM CHLORIDE 20 MEQ in WATER FOR INJECTION 1 100ML.BAG IVPB STA (16:31)
[2024-09-21] MEDS ORDERED: VANCOMYCIN IV PER PHARMACY 1 EACH MISC MISCELLANE PRN (16:57)
--- NOTE | 2024-09-21 17:36 | P.HPIM ---
History of Present Illness H&P Date: 09/21/24 Chief Complaint: weakness and pain Patient is a 79-year-old female with a past medical history of end-stage renal disease on peritoneal dialysis, chronic systolic heart failure, hypertension, hyperlipidemia, coronary artery disease status post stent placement who presents to the ED with weakness and pain. Patient is a poor historian. I obtained history from daughter who is at bedside and is a pathologist. Per daughter 2 weeks ago patient had a fall and since then has been declining. Daughter states that patient has been eating and drinking less is not able to swallow her potassium pills. Patient has also been getting more confused. Patient prior to the fall was able to complete all her daily activities. Per daughter as baseline patient can walk around with minimal assistance with just holding the hand of her . She only requires some assistance with putting on her clothes. Now patient can barely stand up and requires two-person assistance. When I asked the patient where she has pain she touched her right lower abdomen. In the ED WBC 12.7, potassium 2.5, lactic acid 4.0, albumin 1.9, UA showed large leukocyte esterase and [address] abdomen pelvis showed nodular contour to the liver suggestive of hepatic cirrhosis with ascites. Patient also found to have left superior and inferior pubic rami fractures with mild displacement. Patient was referred to the medicine service for admission. ROS: Unable to obtain due to altered mental status Physical exam General: [AAO x 1, appears malnourished, elderly frail lady]. Eye: [No scleral icterus]. HENT: [Normocephalic, clear tympanic membranes, normal hearing, moist oral mucosa, no scleral icterus, no sinus tenderness]. Neck: [Supple, non-tender, no carotid bruits, no JVD, no lymphadenopathy]. Lungs: [Clear to auscultation and percussion, non-labored respiration]. Heart: [Normal rate, regular rhythm, no murmur, gallop or edema]. Abdomen: [Soft, non-tender, non-distended, normal bowel sounds, no masses]. Musculoskeletal: [Normal range of motion and strength, no tenderness or swelling]. Neurologic: [Patient is following some simple commands. Psychiatric: [Delirious]. Assessment and plan Acute toxic metabolic encephalopathy Urinary tract infection with lower abdominal pain Severe sepsis with elevated lactic acid, tachycardia and leukocytosis. I discussed the case with the ED physician and accepted the admission for treatment of her UTI with sepsis Follow-up on urine culture Will obtain blood cultures Reviewed previous urine culture grew ESBL so we will start the patient on meropenem. Patient also has history of infection of peritoneal fluid. Will obtain cultures from peritoneal fluid as well. Consult infectious disease Will start the patient on gentle fluids and trend lactic acid. Cautious fluids due to history of heart failure. Severe hypokalemia On admission potassium is 2.9. Patient ordered for potassium chloride 40 mill equivalents and an additional 20 mill equivalents in the ED Hypovolemic hyponatremia Dehydration Continue with fluids as mentioned above Generalized weakness PT OT consult Liver cirrhosis seen on CT scan Outpatient workup with gastroenterology. At this time patient does not show any signs of decompensated liver cirrhosis. Hypertension Blood pressure is on the low side so we will hold off on BP meds Coronary artery disease Status post cardiac stent Continue with home meds Chronic systolic heart failure Patient currently appears hypovolemic Will hold off on diuretics and beta-velasquez for now due to low blood pressure Mild nondisplaced pelvic fractures Patient was here in the ED 2 weeks ago and was evaluated by orthopedic surgery who said no surgical intervention. DVT prophylaxis: Subcu heparin I discussed with the daughter at bedside who wants her mom to be full code. Past Medical History Past Medical History: Coronary Artery Disease (CAD), Heart Failure, Eye Disorder, GERD/Reflux, GI Bleed, Hyperlipidemia, Hypertension, Myocardial Infarction ([place]), Musculoskeletal Disorder, Osteoarthritis (OA), Renal Disease Additional Past Medical History / Comment(s): anemia-iron deficiency, chronic kidney disease stage V- on CAPD, diverticular disease, osteoporosis, cataract, hiatal hernia, ischemic cardiomyopathy, bilateral renal nodules, UTIs Last Myocardial Infarction Date:: 11/27/22 History of Any Multi-Drug Resistant Organisms: ESBL Date of last positivie culture/infection: 10/23/23 ESBL E.coli MDRO Source:: Urine Past Surgical History: Heart Catheterization With Stent, Orthopedic Surgery, Tonsillectomy, Tubal Ligation Additional Past Surgical History / Comment(s): removal ovaries, bilateral catar act removal with lens implants, cervical spinal fusion, cervical steroid injection, PCI Past Anesthesia/Blood Transfusion Reactions: No Reported Reaction Additional Past Anesthesia/Blood Transfusion Reaction / Comment(s): N/A Date of Last Stent Placement:: 11/27/22 Past Psychological History: Anxiety Smoking Status: Former smoker - Past Family History Mother Family Medical History: Osteoarthritis (OA) Additional Family Medical History / Comment(s): Sister(s) Family Medical History: Cancer Additional Family Medical History / Comment(s): breast cancer Father Family Medical History: No Reported History Additional Family Medical History / Comment(s): Brother(s) Family Medical History: Osteoarthritis (OA) Daughter(s) Family Medical History: No Reported History Son(s) Family Medical History: No Reported History Medications and Allergies Home Medications Medication Instructions Recorded Confirmed Type Famotidine [Pepcid] 20 mg PO DAILY 02/26/20 08/25/24 History Atorvastatin [Lipitor] 40 mg PO DAILY 01/03/23 08/25/24 History Cholecalciferol [Vitamin D3 (25 25 mcg PO DAILY 01/03/23 08/25/24 History Mcg = 1000 Iu)] Metoprolol Succinate [Toprol XL] 50 mg PO HS 01/03/23 08/25/24 History calcitrioL 0.25 mcg PO MOTH 01/03/23 08/25/24 History Aspirin EC [Ecotrin Low Dose] 81 mg PO DAILY 02/13/23 08/25/24 History FLUoxetine HCL 40 mg PO DAILY 10/23/23 08/25/24 History Folic Acid/Vit B Complex and C 0.8 mg PO DAILY 10/23/23 08/25/24 History [Nephro-Trang Tablet] Magnesium Oxide [Mag-Ox] 400 mg PO MOTUWETHFR@2200 10/23/23 08/25/24 History Pantoprazole [Protonix] 40 mg PO BID 10/23/23 08/25/24 History Potassium Chloride ER [K-Dur 10] 10 meq PO MOWEFR 10/23/23 08/25/24 History Bumetanide [BUMEX] 2 mg PO DAILY 04/10/24 08/25/24 History Gentamicin 0.1% Cream 1 applic TOPICAL DIRECTED PRN 04/10/24 08/25/24 History Lactulose 10 gm PO HS PRN 04/10/24 08/25/24 History risperiDONE [RisperDAL] 0.25 mg PO BID 04/10/24 08/25/24 History Calcium Acetate [PhosLo] 1,334 mg PO TID 04/11/24 08/25/24 History Ondansetron Odt [Zofran ODT] 4 mg PO Q6HR PRN 04/11/24 08/25/24 History Fluconazole [Diflucan] 100 mg PO DAILY 14 Days #14 tab 04/12/24 08/25/24 Rx Acetaminophen-Codeine 300-30mg 1 tab PO Q6H PRN 3 Days #12 tablet 09/02/24 Rx [Tylenol w/codeine #3] Allergies Allergy/AdvReac Type Severity Reaction Status Date / Time celecoxib [From Celebrex] Allergy Rash/Hives Verified 09/21/24 15:43 cephalexin [From Keflex] Allergy Unknown Verified 09/21/24 15:43 nitrofurantoin Allergy Rash all Verified 09/21/24 15:43 [From Macrobid] over nitrofurantoin Allergy Rash all Verified 09/21/24 15:43 macrocrystalline over [From Macrobid] sulfamethoxazole Allergy Face Verified 09/21/24 15:43 [From Bactrim] swelling trimethoprim [From Bactrim] Allergy Face Verified 09/21/24 15:43 swelling Physical Exam Osteopathic Statement: *. No significant issues noted on an osteopathic structural exam other than those noted in the History and Physical/Consult. Vitals: Vital Signs Temp Pulse Resp BP Pulse Ox 09/21/24 16:26 92 16 92/55 92 L 09/21/24 13:16 97.4 F L 80 16 106/56 88 L Intake and Output 09/21/24 09/21/24 09/21/24 06:59 14:59 22:59 Other: Weight 40.823 kg Results CBC & Chem 7: 09/21/24 14:07 09/21/24 14:07 Labs: Abnormal Lab Results - Last 24 Hours (Table) 09/21/24 09/21/24 09/21/24 Range/Units 14:07 14:07 14:07 WBC 12.7 H (3.8-10.6) k/uL RBC 3.24 L (3.80-5.40) m/uL Hgb 10.3 L (11.4-16.0) gm/dL Hct 32.1 L (34.0-46.0) % RDW 17.7 H (11.5-15.5) % Plt Count 481 H (150-450) k/uL Neutrophils # 10.4 H (1.3-7.7) k/uL Sodium 128 L (137-145) mmol/L Potassium 2.5 L* (3.5-5.1) mmol/L Chloride 91 L (98-107) mmol/L BUN 28 H (7-17) mg/dL Creatinine 5.20 H (0.52-1.04) mg/dL Glucose 107 H (74-99) mg/dL Plasma Lactic Acid Omar 4.0 H* (0.7-2.0) mmol/L AST 109 H (14-36) U/L ALT 36 H (4-34) U/L Alkaline Phosphatase 464 H (38-126) U/L Total Protein 5.1 L (6.3-8.2) g/dL Albumin 1.9 L (3.5-5.0) g/dL Amylase <30 L (30-110) U/L Urine Appearance (Clear) Urine Protein (Negative) Urine Glucose (UA) (Negative) Urine Blood (Negative) Urine Bilirubin (Negative) Ur Leukocyte Esterase (Negative) Urine WBC (0-5) /hpf Urine Bacteria (None) /hpf 09/21/24 Range/Units 14:52 WBC (3.8-10.6) k/uL RBC (3.80-5.40) m/uL Hgb (11.4-16.0) gm/dL Hct (34.0-46.0) % RDW (11.5-15.5) % Plt Count (150-450) k/uL Neutrophils # (1.3-7.7) k/uL Sodium (137-145) mmol/L Potassium (3.5-5.1) mmol/L Chloride (98-107) mmol/L BUN (7-17) mg/dL Creatinine (0.52-1.04) mg/dL Glucose (74-99) mg/dL Plasma Lactic Acid Omar (0.7-2.0) mmol/L AST (14-36) U/L ALT (4-34) U/L Alkaline Phosphatase (38-126) U/L Total Protein (6.3-8.2) g/dL Albumin (3.5-5.0) g/dL Amylase (30-110) U/L Urine Appearance Turbid H (Clear) Urine Protein 1+ H (Negative) Urine Glucose (UA) Trace H (Negative) Urine Blood Small H (Negative) Urine Bilirubin 1+ H (Negative) Ur Leukocyte Esterase Large H (Negative) Urine WBC 110 H (0-5) /hpf Urine Bacteria Many H (None) /hpf
[2024-09-21] MEDS: SODIUM CHLORIDE 0.9% 1,000 ML IV SCH (18:18)
[2024-09-21] MEDS: VANCOMYCIN 750 MG in SODIUM CHLORIDE 0.9% 250 ML IVPB ONE (18:18)
[2024-09-21] MEDS: MEROPENEM 1 GM in SODIUM CHLORIDE 0.9% 100 ML IVPB SCH (18:20)
[2024-09-21] MEDS: POTASSIUM CHLORIDE ER 20 MEQ TAB.ER PO STA (19:11)
[2024-09-21] MEDS: LORazepam 2 MG/ML INJ IV STA (21:05)
[2024-09-21] MEDS: HEPARIN SODIUM,PORCINE 5,000 UNIT/ML 1 ML VIAL SQ SCH (22:05)
[2024-09-22 08:08] LABS: Anisocytosis Slight; Basophils % (A) 0 %; Eosinophils % (A) 0 %; HCT 28.3 % (34.0-46.0); Hypochromasia Slight; Lymphocytes # (A) 1.1 k/uL (1.0-4.8); Lymphocytes % (A) 7 %; MCH 35.5 pg (25.0-35.0); MCHC 35.5 g/dL (31.0-37.0); MCV 100.1 fL (80.0-100.0); Macrocytosis Moderate; Mean Platelet Volume 8.8; Monocytes % (A) 6 %; Neutrophils # (A) 13.8 k/uL (1.3-7.7); Neutrophils % (A) 86 %; Platelet Count 329 k/uL (150-450); RBC 2.83 m/uL (3.80-5.40); RDW 18.2 % (11.5-15.5); WBC 16.1 k/uL (3.8-10.6)
[2024-09-22 08:17] LABS: African American GFR (CKD) 7 (>60 ml/min/1.73 sqM); Anion Gap 17 mmol/L; Blood Urea Nitrogen 31 mg/dL (7-17); Calcium 8.9 mg/dL (8.4-10.2); Carbon Dioxide 14 mmol/L (22-30); Chloride 102 mmol/L (98-107); Glucose 123 mg/dL (74-99); Non-African American GFR(CKD) 6 (>60 ml/min/1.73 sqM); Potassium 3.5 mmol/L (3.5-5.1); Sodium 133 mmol/L (137-145)
[2024-09-22] MEDS ORDERED: FAMOTIDINE 20 MG TAB PO SCH (09:00)
[2024-09-22] MEDS: LACTATED RINGERS 1,000 ML IV SCH (09:13)
[2024-09-22] MEDS: FLUoxetine HCL 20 MG CAP PO SCH (09:14)
[2024-09-22] MEDS: PANTOPRAZOLE 40 MG TABLET PO SCH (09:14)
[2024-09-22] MEDS: ASPIRIN 81 MG PO SCH (09:14)
[2024-09-22] MEDS: CHOLECALCIFEROL 25 MCG (1000 IU) TABLET PO SCH (09:14)
[2024-09-22] MEDS: POTASSIUM CHLORIDE ER 10 MEQ TAB.ER.PRT PO SCH (09:14)
[2024-09-22] MEDS: ATORVASTATIN 40 MG TAB PO SCH (09:14)
[2024-09-22] MEDS: FOLIC ACID-VIT B COMPLEX-VIT C 1 CAP PO SCH (09:14)
[2024-09-22] MEDS: LUBIPROSTONE 8 MCG PO SCH (09:39)
[2024-09-22] MEDS: LACTATED RINGERS 1,000 ML IV ONE ×3 (09:48→18:55)
[2024-09-22] MEDS: LACTATED RINGERS 500 ML IV ONE (09:48)
--- NOTE | 2024-09-22 11:18 | P.PN ---
Subjective Progress Note Date: 09/22/24 Patient is a 79-year-old female with a past medical history of end-stage renal disease on peritoneal dialysis, chronic systolic heart failure, hypertension, hyperlipidemia, coronary artery disease status post stent placement who presents to the ED with weakness and pain. Patient is a poor historian. I obtained history from daughter who is at bedside and is a pathologist. Per daughter 2 weeks ago patient had a fall and since then has been declining. Daughter states that patient has been eating and drinking less is not able to swallow her potassium pills. Patient has also been getting more confused. Patient prior to the fall was able to complete all her daily activities. Per daughter as basel ine patient can walk around with minimal assistance with just holding the hand of her . She only requires some assistance with putting on her clothes. Now patient can barely stand up and requires two-person assistance. When I asked the patient where she has pain she touched her right lower abdomen. In the ED WBC 12.7, potassium 2.5, lactic acid 4.0, albumin 1.9, UA showed large leukocyte esterase and [address] abdomen pelvis showed nodular contour to the liver suggestive of hepatic cirrhosis with ascites. Patient also found to have left superior and inferior pubic rami fractures with mild displacement. Patient was referred to the medicine service for admission. Physical exam General examination -eyes open, elderly frail lady, ill-appearing Heart - + S1S2 no murmurs Lungs -diminished breath sounds bilaterally Abdomen soft NT ND +ve BS Extremities - No edema MEDICAL RECORD CONSULTANT -not following any commands Psych -minimally responsive Assessment and plan Acute toxic metabolic encephalopathy Urinary tract infection with lower abdominal pain Severe sepsis with elevated lactic acid, tachycardia and leukocytosis. Follow-up on urine culture Follow-up on blood cultures Continue with meropenem renally dosed at 1 g every 24 hours. Will also start the patient on pharmacy to dose vancomycin. Infectious disease consult Patient also has history of infection of peritoneal fluid. Will obtain cultures from peritoneal fluid as well. Not collected yet Consult infectious disease Lactic acid is increasing and is now up to 5.6. Will give a 500 cc bolus. Will increase her fluids to 100 cc an hour. Continue to trend lactic acid I discussed with the daughter about patient's worsening condition today. Her mental status is worse today. I did review patient's chart and it appears that she did get a dose of Ativan 0.5 mg. I also did have finish carpenter evaluate the patient for higher level of care. Per finish carpenter continue with resuscitation. Severe hypokalemia on admission Potassium this morning improved to 3.5 Continue with home dose potassium chloride 10 mill equivalents daily. Replete as needed Hypovolemic hyponatremia Dehydration Sodium this morning improved to 133. Continue fluids as mentioned above Generalized weakness PT OT consult ESRD on PD Nephrology consult to manage dialysis Liver cirrhosis seen on CT scan Outpatient workup with gastroenterology. At this time patient does not show any signs of decompensated liver cirrhosis. Hypertension Blood pressure is on the low side so we will hold off on BP meds Coronary artery disease Status post cardiac stent Continue with aspirin 81 mg p.o. daily, atorvastatin 40 mg p.o. daily Hold off on metoprolol due to low blood pressure. Chronic systolic heart failure Patient currently appears hypovolemic Will hold off on diuretics and beta-velasquez for now due to low blood pressure Mild nondisplaced pelvic fractures Patient was here in the ED 2 weeks ago and was evaluated by orthopedic surgery who said no surgical intervention. Anxiety and depression Continue with Prozac 40 mg p.o. daily, Requip 0.25 mg p.o. at bedtime DVT prophylaxis: Subcu heparin I discussed with the daughter at bedside who wants her mom to be full code. Objective - Vital Signs Vital signs: Vital Signs Temp 98.2 F 09/22/24 06:10 Pulse 94 09/22/24 10:41 Resp 20 09/22/24 10:41 BP 98/40 09/22/24 10:41 Pulse Ox 98 09/22/24 09:23 FiO2 Intake & Output 09/21/24 09/22/24 09/22/24 18:59 06:59 18:59 Weight 40.823 kg - Labs CBC & Chem 7: 09/22/24 06:50 09/22/24 06:50 Labs: Abnormal Lab Results - Last 24 Hours (Table) 09/21/24 09/21/24 09/21/24 Range/Units 14:07 14:07 14:07 WBC 12.7 H (3.8-10.6) k/uL RBC 3.24 L (3.80-5.40) m/uL Hgb 10.3 L (11.4-16.0) gm/dL Hct 32.1 L (34.0-46.0) % MCV (80.0-100.0) fL MCH (25.0-35.0) pg RDW 17.7 H (11.5-15.5) % Plt Count 481 H (150-450) k/uL Neutrophils # 10.4 H (1.3-7.7) k/uL Sodium 128 L (137-145) mmol/L Potassium 2.5 L* (3.5-5.1) mmol/L Chloride 91 L (98-107) mmol/L Carbon Dioxide (22-30) mmol/L BUN 28 H (7-17) mg/dL Creatinine 5.20 H (0.52-1.04) mg/dL Glucose 107 H (74-99) mg/dL Plasma Lactic Acid Omar 4.0 H* (0.7-2.0) mmol/L AST 109 H (14-36) U/L ALT 36 H (4-34) U/L Alkaline Phosphatase 464 H (38-126) U/L Total Protein 5.1 L (6.3-8.2) g/dL Albumin 1.9 L (3.5-5.0) g/dL Amylase <30 L (30-110) U/L Urine Appearance (Clear) Urine Protein (Negative) Urine Glucose (UA) (Negative) Urine Blood (Negative) Urine Bilirubin (Negative) Ur Leukocyte Esterase (Negative) Urine WBC (0-5) /hpf Urine Bacteria (None) /hpf 09/21/24 09/21/24 09/21/24 Range/Units 14:52 17:28 20:41 WBC (3.8-10.6) k/uL RBC (3.80-5.40) m/uL Hgb (11.4-16.0) gm/dL Hct (34.0-46.0) % MCV (80.0-100.0) fL MCH (25.0-35.0) pg RDW (11.5-15.5) % Plt Count (150-450) k/uL Neutrophils # (1.3-7.7) k/uL Sodium (137-145) mmol/L Potassium (3.5-5.1) mmol/L Chloride (98-107) mmol/L Carbon Dioxide (22-30) mmol/L BUN (7-17) mg/dL Creatinine (0.52-1.04) mg/dL Glucose (74-99) mg/dL Plasma Lactic Acid Omar 4.5 H* 3.4 H* (0.7-2.0) mmol/L AST (14-36) U/L ALT (4-34) U/L Alkaline Phosphatase (38-126) U/L Total Protein (6.3-8.2) g/dL Albumin (3.5-5.0) g/dL Amylase (30-110) U/L Urine Appearance Turbid H (Clear) Urine Protein 1+ H (Negative) Urine Glucose (UA) Trace H (Negative) Urine Blood Small H (Negative) Urine Bilirubin 1+ H (Negative) Ur Leukocyte Esterase Large H (Negative) Urine WBC 110 H (0-5) /hpf Urine Bacteria Many H (None) /hpf 09/21/24 09/22/24 09/22/24 Range/Units 23:24 03:44 06:50 WBC 16.1 H (3.8-10.6) k/uL RBC 2.83 L (3.80-5.40) m/uL Hgb 10.0 L (11.4-16.0) gm/dL Hct 28.3 L (34.0-46.0) % MCV 100.1 H (80.0-100.0) fL MCH 35.5 H (25.0-35.0) pg RDW 18.2 H (11.5-15.5) % Plt Count (150-450) k/uL Neutrophils # 13.8 H (1.3-7.7) k/uL Sodium (137-145) mmol/L Potassium (3.5-5.1) mmol/L Chloride (98-107) mmol/L Carbon Dioxide (22-30) mmol/L BUN (7-17) mg/dL Creatinine (0.52-1.04) mg/dL Glucose (74-99) mg/dL Plasma Lactic Acid Omar 3.5 H* 5.0 H* (0.7-2.0) mmol/L AST (14-36) U/L ALT (4-34) U/L Alkaline Phosphatase (38-126) U/L Total Protein (6.3-8.2) g/dL Albumin (3.5-5.0) g/dL Amylase (30-110) U/L Urine Appearance (Clear) Urine Protein (Negative) Urine Glucose (UA) (Negative) Urine Blood (Negative) Urine Bilirubin (Negative) Ur Leukocyte Esterase (Negative) Urine WBC (0-5) /hpf Urine Bacteria (None) /hpf 09/22/24 09/22/24 Range/Units 06:50 06:50 WBC (3.8-10.6) k/uL RBC (3.80-5.40) m/uL Hgb (11.4-16.0) gm/dL Hct (34.0-46.0) % MCV (80.0-100.0) fL MCH (25.0-35.0) pg RDW (11.5-15.5) % Plt Count (150-450) k/uL Neutrophils # (1.3-7.7) k/uL Sodium 133 L (137-145) mmol/L Potassium (3.5-5.1) mmol/L Chloride (98-107) mmol/L Carbon Dioxide 14 L (22-30) mmol/L BUN 31 H (7-17) mg/dL Creatinine 6.01 H (0.52-1.04) mg/dL Glucose 123 H (74-99) mg/dL Plasma Lactic Acid Omar 5.6 H* (0.7-2.0) mmol/L AST (14-36) U/L ALT (4-34) U/L Alkaline Phosphatase (38-126) U/L Total Protein (6.3-8.2) g/dL Albumin (3.5-5.0) g/dL Amylase (30-110) U/L Urine Appearance (Clear) Urine Protein (Negative) Urine Glucose (UA) (Negative) Urine Blood (Negative) Urine Bilirubin (Negative) Ur Leukocyte Esterase (Negative) Urine WBC (0-5) /hpf Urine Bacteria (None) /hpf
[2024-09-22] MEDS: DIALYSIS (PERIT 1.5%) 2,000 ML 30 G/2,000 ML BAG INTRAPERIT SCH (13:06)
--- NOTE | 2024-09-22 13:09 | P.NPCON ---
History of Present Illness - Reason for Consult end stage renal disease - History of Present Illness Patient is an 79-year-old female on peritoneal dialysis. She is admitted to the hospital with mental status changes and increased weakness along with abdominal pain. No change in color of the fluid. Patient has been tolerating peritoneal dialysis exchanges. Family reports poor oral intake. No diarrhea reported Blood pressure is low with systolic in the 90s. Elevated white count noted along with elevated lactic acid at 5.6. Abdominal CT showed left superior and inferior pubic rami fractures with no other major abnormalities. Received fluid bolus in the ER Past Medical History Past Medical History: Coronary Artery Disease (CAD), Heart Failure, Eye Disorde r, GERD/Reflux, GI Bleed, Hyperlipidemia, Hypertension, Myocardial Infarction ([place]), Musculoskeletal Disorder, Osteoarthritis (OA), Renal Disease Additional Past Medical History / Comment(s): anemia-iron deficiency, chronic kidney disease stage V- on CAPD, diverticular disease, osteoporosis, cataract, hiatal hernia, ischemic cardiomyopathy, bilateral renal nodules, UTIs Last Myocardial Infarction Date:: 11/27/22 History of Any Multi-Drug Resistant Organisms: ESBL Date of last positivie culture/infection: 10/23/23 ESBL E.coli MDRO Source:: Urine Past Surgical History: Heart Catheterization With Stent, Orthopedic Surgery, Tonsillectomy, Tubal Ligation Additional Past Surgical History / Comment(s): removal ovaries, bilateral cataract removal with lens implants, cervical spinal fusion, cervical steroid injection, PCI Past Anesthesia/Blood Transfusion Reactions: No Reported Reaction Additional Past Anesthesia/Blood Transfusion Reaction / Comment(s): N/A Date of Last Stent Placement:: 11/27/22 Past Psychological History: Anxiety Smoking Status: Former smoker - Past Family History Mother Family Medical History: Osteoarthritis (OA) Additional Family Medical History / Comment(s): Sister(s) Family Medical History: Cancer Additional Family Medical History / Comment(s): breast cancer Father Family Medical History: No Reported History Additional Family Medical History / Comment(s): Brother(s) Family Medical History: Osteoarthritis (OA) Daughter(s) Family Medical History: No Reported History Son(s) Family Medical History: No Reported History Medications and Allergies Home Medications Medication Instructions Recorded Confirmed Type Famotidine [Pepcid] 20 mg PO DAILY 02/26/20 09/21/24 History Atorvastatin [Lipitor] 40 mg PO DAILY 01/03/23 09/21/24 History Cholecalciferol [Vitamin D3 (25 25 mcg PO DAILY 01/03/23 09/21/24 History Mcg = 1000 Iu)] Metoprolol Succinate [Toprol XL] 50 mg PO HS 01/03/23 09/21/24 History calcitrioL 0.25 mcg PO MOTH 01/03/23 09/21/24 History Aspirin EC [Ecotrin Low Dose] 81 mg PO DAILY 02/13/23 09/21/24 History FLUoxetine HCL 40 mg PO DAILY 10/23/23 09/21/24 History Folic Acid/Vit B Complex and C 0.8 mg PO DAILY 10/23/23 09/21/24 History [Nephro-Trang Tablet] Magnesium Oxide [Mag-Ox] 400 mg PO MOTUWETHFR@2100 10/23/23 09/21/24 History Pantoprazole [Protonix] 40 mg PO BID 10/23/23 09/21/24 History Potassium Chloride ER [K-Dur 10] 10 meq PO DAILY 10/23/23 09/21/24 History Gentamicin 0.1% Cream 1 applic TOPICAL DAILY 04/10/24 09/21/24 History Calcium Acetate [PhosLo] 1,334 mg PO TID-W/MEALS 04/11/24 09/21/24 History Ondansetron Odt [Zofran ODT] 4 mg PO Q6HR PRN 04/11/24 09/21/24 History Calcium Acetate [Phoslo] 667 mg PO DAILY PRN 09/21/24 09/21/24 History Lubiprostone [Amitiza] 8 mcg PO BID 09/21/24 09/21/24 History Metoclopramide [Reglan] 5 mg PO AC-TID 09/21/24 09/21/24 History rOPINIRole HCL [Requip] 0.25 mg PO HS 09/21/24 09/21/24 History Allergies Allergy/AdvReac Type Severity Reaction Status Date / Time celecoxib [From Celebrex] Allergy Rash/Hives Verified 09/21/24 15:43 cephalexin [From Keflex] Allergy Unknown Verified 09/21/24 15:43 nitrofurantoin Allergy Rash all Verified 09/21/24 15:43 [From Macrobid] over nitrofurantoin Allergy Rash all Verified 09/21/24 15:43 macrocrystalline over [From Macrobid] sulfamethoxazole Allergy Face Verified 09/21/24 15:43 [From Bactrim] swelling trimethoprim [From Bactrim] Allergy Face Verified 09/21/24 15:43 swelling Physical Exam Vitals: Vital Signs Temp Pulse Resp BP Pulse Ox 09/22/24 10:41 94 20 98/40 09/22/24 09:23 92 18 108/66 98 09/22/24 08:02 95 22 94/47 99 09/22/24 06:10 98.2 F 95 20 98/84 99 09/22/24 05:11 86 18 104/60 09/22/24 03:12 99.1 F 89 22 92/61 99 09/21/24 22:19 97 09/21/24 22:08 91 22 101/60 09/21/24 19:41 98.7 F 90 18 95/70 96 09/21/24 16:26 92 16 92/55 92 L 09/21/24 13:16 97.4 F L 80 16 106/56 88 L patient is comfortable. She does not communicate much. Not opening eyes but withdraws to pain. Examination of the heart S1 and S2 Examination of the lungs bilateral breath sounds are heard Abdomen is soft nontender Examination of lower extremity shows no significant edema Results - Lab Results Most recent lab results Calcium 8.9 mg/dL (8.4-10.2) 09/22/24 06:50 09/22/24 06:50 09/22/24 06:50 Assessment and Plan Assessment: 1. End-stage renal disease on peritoneal dialysis 2. Abdominal pain most likely related to UTI. Check PD fluid to rule out peritonitis 3. Metabolic acidosis associated with end-stage renal disease as well as lactic acidosis and underlying infection 4. CK D mineral bone disorder 5. Sepsis from UTI Plan: repeat fluid bolus Resume PD Send PD fluid for cell count and cultures Continue with empiric antibiotics. Thank you for the consultation. We will continue to follow the patient with you during her hospitalization
[2024-09-22] MEDS: VANCOMYCIN 750 MG in SODIUM CHLORIDE 0.9% 250 ML IVPB ONE (15:03)
[2024-09-22] MEDS: CALCIUM ACETATE 667 MG TAB PO SCH (15:15)
[2024-09-22] MEDS: DEXTROSE 5% IN WATER 1,000 ML with SODIUM BICARB (1 MEQ/ML) 150 ML IV SCH (15:16)
--- NOTE | 2024-09-22 15:37 | P.CNPUL ---
History of Present Illness Consult date: 09/22/24 Requesting physician: Sabrina Wheatley Reason for consult: other (Sepsis) Chief complaint: Abdominal pain History of present illness: This is an 79-year-old female patient with a known history of degenerative joint disease, myocardial infarction, coronary artery disease with previous stent alina cement, congestive heart failure, gastroesophageal reflux disease, hypertension, end-stage renal disease peritoneal dialysis, hyperlipidemia who presented here to the emergency room yesterday with complaints of abdominal pain altered mental status. Count 16.1. Hemoglobin 10.0. Platelets 329. Sodium 133. Potassium 3.5. Bicarb 14. BUN 31. Creatinine 6.01. Glucose 123. Lactic acid 5.6, 4.6. AST 109. ALT 36. Alk phos 464. Lipase 121. Urinalysis turbid with many bacteria. CT scan of the abdomen and pelvis revealed no acute abdominal process. Some nodular contour of the liver suggestive of hepatic cirrhosis with ascites. Peritoneal dialysis catheter within the right abdomen. Small left pleural effusion. Colonic diverticulosis. Left superior and inferior pubic rami fractures with mild displacement. She is seen today in consultation in the emergency department. She is being considered for ICU placement. She is altered. Obtunded. Poor historian. Unclear of her baseline status. She is currently afebrile. Hemodynamically stable. On 2 L nasal cannula with O2 saturations up to 98%. Received 1 L of fluid resuscitation. Currently on lactated Ringer's at 100 mL/h. She has been initiated on meropenem. She has been initiated on D5W with 3 A of bicarb at 80 mL/h. Heparin for DVT prophylaxis. Blood and urine culture pending. Peritoneal fluid cultures pending. Review of Systems ROS unobtainable: due to mental status Past Medical History Past Medical History: Coronary Artery Disease (CAD), Heart Failure, Eye Disorder, GERD/Reflux, GI Bleed, Hyperlipidemia, Hypertension, Myocardial Infarction (MN), Musculoskeletal Disorder, Osteoarthritis (OA), Renal Disease Additional Past Medical History / Comment(s): anemia-iron deficiency, chronic kidney disease stage V- on CAPD, diverticular disease, osteoporosis, cataract, hiatal hernia, ischemic cardiomyopathy, bilateral renal nodules, UTIs Last Myocardial Infarction Date:: 11/27/22 History of Any Multi-Drug Resistant Organisms: ESBL Date of last positivie culture/infection: 10/23/23 ESBL E.coli MDRO Source:: Urine Past Surgical History: Heart Catheterization With Stent, Orthopedic Surgery, Tonsillectomy, Tubal Ligation Additional Past Surgical History / Comment(s): removal ovaries, bilateral cataract removal with lens implants, cervical spinal fusion, cervical steroid injection, PCI Past Anesthesia/Blood Transfusion Reactions: No Reported Reaction Additional Past Anesthesia/Blood Transfusion Reaction / Comment(s): N/A Date of Last Stent Placement:: 11/27/22 Past Psychological History: Anxiety Smoking Status: Former smoker - Past Family History Mother Family Medical History: Osteoarthritis (OA) Additional Family Medical History / Comment(s): Sister(s) Family Medical History: Cancer Additional Family Medical History / Comment(s): breast cancer Father Family Medical History: No Reported History Additional Family Medical History / Comment(s): Brother(s) Family Medical History: Osteoarthritis (OA) Daughter(s) Family Medical History: No Reported History Son(s) Family Medical History: No Reported History Medications and Allergies Home Medications Medication Instructions Recorded Confirmed Type Famotidine [Pepcid] 20 mg PO DAILY 02/26/20 09/21/24 History Atorvastatin [Lipitor] 40 mg PO DAILY 01/03/23 09/21/24 History Cholecalciferol [Vitamin D3 (25 25 mcg PO DAILY 01/03/23 09/21/24 History Mcg = 1000 Iu)] Metoprolol Succinate [Toprol XL] 50 mg PO HS 01/03/23 09/21/24 History calcitrioL 0.25 mcg PO MOTH 01/03/23 09/21/24 History Aspirin EC [Ecotrin Low Dose] 81 mg PO DAILY 02/13/23 09/21/24 History FLUoxetine HCL 40 mg PO DAILY 10/23/23 09/21/24 History Folic Acid/Vit B Complex and C 0.8 mg PO DAILY 10/23/23 09/21/24 History [Nephro-Trang Tablet] Magnesium Oxide [Mag-Ox] 400 mg PO MOTUWETHFR@2100 10/23/23 09/21/24 History Pantoprazole [Protonix] 40 mg PO BID 10/23/23 09/21/24 History Potassium Chloride ER [K-Dur 10] 10 meq PO DAILY 10/23/23 09/21/24 History Gentamicin 0.1% Cream 1 applic TOPICAL DAILY 04/10/24 09/21/24 History Calcium Acetate [PhosLo] 1,334 mg PO TID-W/MEALS 04/11/24 09/21/24 History Ondansetron Odt [Zofran ODT] 4 mg PO Q6HR PRN 04/11/24 09/21/24 History Calcium Acetate [Phoslo] 667 mg PO DAILY PRN 09/21/24 09/21/24 History Lubiprostone [Amitiza] 8 mcg PO BID 09/21/24 09/21/24 History Metoclopramide [Reglan] 5 mg PO AC-TID 09/21/24 09/21/24 History rOPINIRole HCL [Requip] 0.25 mg PO HS 09/21/24 09/21/24 History Allergies Allergy/AdvReac Type Severity Reaction Status Date / Time celecoxib [From Celebrex] Allergy Rash/Hives Verified 09/21/24 15:43 cephalexin [From Keflex] Allergy Unknown Verified 09/21/24 15:43 nitrofurantoin Allergy Rash all Verified 09/21/24 15:43 [From Macrobid] over nitrofurantoin Allergy Rash all Verified 09/21/24 15:43 macrocrystalline over [From Macrobid] sulfamethoxazole Allergy Face Verified 09/21/24 15:43 [From Bactrim] swelling trimethoprim [From Bactrim] Allergy Face Verified 09/21/24 15:43 swelling Physical Exam Osteopathic Statement: *. No significant issues noted on an osteopathic structural exam other than those noted in the History and Physical/Consult. Vitals: Vital Signs Temp Pulse Resp BP Pulse Ox 09/22/24 14:00 98.9 F 92 20 100/55 98 09/22/24 12:35 99.6 F 80 22 95/52 98 09/22/24 10:41 94 20 98/40 09/22/24 09:23 92 18 108/66 98 09/22/24 08:02 95 22 94/47 99 09/22/24 06:10 98.2 F 95 20 98/84 99 09/22/24 05:11 86 18 104/60 09/22/24 03:12 99.1 F 89 22 92/61 99 09/21/24 22:19 97 09/21/24 22:08 91 22 101/60 09/21/24 19:41 98.7 F 90 18 95/70 96 09/21/24 16:26 92 16 92/55 92 L GENERAL EXAM: Arousable, frail 79-year-old female, on 2 L nasal cannula, fairly comfortable in no apparent distress. HEAD: Normocephalic. EYES: Normal reaction of pupils, equal size. NOSE: Clear with pink turbinates. THROAT: No erythema or exudates. NECK: No masses, no JVD. CHEST: No chest wall deformity. LUNGS: Equal air entry with no crackles, wheeze, rhonchi or dullness. CVS: S1 and S2 normal with no audible murmur, regular rhythm. ABDOMEN: No hepatosplenomegaly, normal bowel sounds, no guarding or rigidity. SPINE: No scoliosis or deformity SKIN: No rashes CENTRAL NERVOUS SYSTEM: Minimally responsive, tone is normal in all 4 extremities. EXTREMITIES: There is no peripheral edema. No clubbing, no cyanosis. Peripheral pulses are intact. Results - Laboratory Findings CBC and BMP: 09/22/24 06:50 09/22/24 06:50 Abnormal lab findings: Abnormal Labs 09/21/24 09/21/24 09/21/24 14:07 14:07 14:07 WBC 12.7 H RBC 3.24 L Hgb 10.3 L Hct 32.1 L MCV MCH RDW 17.7 H Plt Count 481 H Neutrophils # 10.4 H Sodium 128 L Potassium 2.5 L* Chloride 91 L Carbon Dioxide BUN 28 H Creatinine 5.20 H Glucose 107 H Plasma Lactic Acid Omar 4.0 H* AST 109 H ALT 36 H Alkaline Phosphatase 464 H Total Protein 5.1 L Albumin 1.9 L Amylase <30 L Urine Appearance Urine Protein Urine Glucose (UA) Urine Blood Urine Bilirubin Ur Leukocyte Esterase Urine WBC Urine Bacteria 09/21/24 09/21/24 09/21/24 14:52 17:28 20:41 WBC RBC Hgb Hct MCV MCH RDW Plt Count Neutrophils # Sodium Potassium Chloride Carbon Dioxide BUN Creatinine Glucose Plasma Lactic Acid Omar 4.5 H* 3.4 H* AST ALT Alkaline Phosphatase Total Protein Albumin Amylase Urine Appearance Turbid H Urine Protein 1+ H Urine Glucose (UA) Trace H Urine Blood Small H Urine Bilirubin 1+ H Ur Leukocyte Esterase Large H Urine WBC 110 H Urine Bacteria Many H 09/21/24 09/22/24 09/22/24 23:24 03:44 06:50 WBC 16.1 H RBC 2.83 L Hgb 10.0 L Hct 28.3 L MCV 100.1 H MCH 35.5 H RDW 18.2 H Plt Count Neutrophils # 13.8 H Sodium Potassium Chloride Carbon Dioxide BUN Creatinine Glucose Plasma Lactic Acid Omar 3.5 H* 5.0 H* AST ALT Alkaline Phosphatase Total Protein Albumin Amylase Urine Appearance Urine Protein Urine Glucose (UA) Urine Blood Urine Bilirubin Ur Leukocyte Esterase Urine WBC Urine Bacteria 09/22/24 09/22/24 09/22/24 06:50 06:50 11:19 WBC RBC Hgb Hct MCV MCH RDW Plt Count Neutrophils # Sodium 133 L Potassium Chloride Carbon Dioxide 14 L BUN 31 H Creatinine 6.01 H Glucose 123 H Plasma Lactic Acid Omar 5.6 H* 4.6 H* AST ALT Alkaline Phosphatase Total Protein Albumin Amylase Urine Appearance Urine Protein Urine Glucose (UA) Urine Blood Urine Bilirubin Ur Leukocyte Esterase Urine WBC Urine Bacteria Assessment and Plan Assessment: Altered mental status suspect secondary to sepsis suspect secondary to urinary tract infection, possible peritoneal infection Altered mental status with toxic metabolic encephalopathy secondary to above Urinary tract infection, cultures pending Acute sepsis secondary to above requiring fluid resuscitation, not currently on pressors Leukocytosis secondary to above Acute chronic kidney disease suspect secondary to hypotension Secondary to sepsis Coronary artery disease with previous stent placement History of congestive heart failure Degenerative joint disease Gastroesophageal reflux disease History of hypertension End-stage renal disease on peritoneal dialysis Hyperlipidemia Plan: The patient was seen and evaluated Imaging, labs and medications reviewed Obtain a chest x-ray Continue meropenem Will give an additional liter of lactated Ringer's Blood and urine cultures pending Heparin for DVT prophylaxis Continue bicarb drip May require ICU placement if she does not respond to fluid resuscitation We will continue to follow and make further recommendations based on her clinical status I have personally seen and examined the patient, performed the documentation and the assessment and plan as written. Number of minutes spent on the visit: 20 Dictation was produced using [employer] dictation software. Please excuse any grammatical, word or spelling errors.
--- NOTE | 2024-09-22 15:53 | XR ---
EXAMINATION TYPE: XR chest 1V portable DATE OF EXAM: 09/22/2024 3:48 PM COMPARISON: Chest radiographs from10/23/2023 CLINICAL INDICATION: Female, 79 years old with history of Hypoxemia; [facility] TECHNIQUE: XR chest 1V portable Frontal view of the chest. FINDINGS: Lungs/Pleura: Increased reticular opacities in the left lung base compared to the right. Bibasilar at electasis. No evidence for pneumothorax, pleural effusion or focal consolidation. Pulmonary vascularity: Unremarkable. Heart/mediastinum: Cardiomediastinal silhouette is unremarkable. Musculoskeletal: No acute osseous pathology. There is fixation hardware in the lower cervical spine. IMPRESSION: Increased reticular opacities left lung base correlate for superimposed infection and COPD. [facility], , 09/22/2024 3:51 PM
[2024-09-22 21:31] LABS: Glucose,Whole Blood 94 mg/dL (70-110)
--- NOTE | 2024-09-22 22:03 | P.CONS ---
History of Present Illness - Reason for Consult Consult date: 09/22/24 History of ESBL multiple antibiotic allergies Requesting physician: Adair Mcdonough - Chief Complaint Abdominal pain x 1 day - History of Present Illness Patient is a 79-year-old female with a past medical history coronary disease heart failure with reflux hypertension hyperlipidemia osteoarthritis end-stage renal disease on peritoneal dialysis patient has been brought to the hospital concerning for right lower quadrant abdominal pain in this patient symptom apparently has been going on for a day or 2 before the patient has been brought in the hospital pain was moderate intensity without any radiation and no vomiting or diarrhea has been reported by the daughter at the bedside on presentation to the hospital patient was afebrile she did have a low-grade fever of 99.1 at 3 AM patient has nontachycardic hypotensive or hypoxic did have elevated lactic acid white count 16.1 BUN and creatinine are elevated electrolytes are normal urine has been positive. The patient did have a history of ESBL infection and multiple patient with multiple antibiotic ALLERGIES that would limit the number of antibiotic safe to use prompted this consultation patient did have abdominal pelvis CT no evidence for acute abdominal process small left effusion and colonic diverticulosis patient is currently empirically on meropenem and vancomycin dose has been given Review of Systems Positive points has been mentioned in HPI complete review could not be obtained because of his underlying mental status Past Medical History Past Medical History: Coronary Artery Disease (CAD), Heart Failure, Eye Disor solomon, GERD/Reflux, GI Bleed, Hyperlipidemia, Hypertension, Myocardial Infarction (MN), Musculoskeletal Disorder, Osteoarthritis (OA), Renal Disease Additional Past Medical History / Comment(s): anemia-iron deficiency, chronic kidney disease stage V- on CAPD, diverticular disease, osteoporosis, cataract, hiatal hernia, ischemic cardiomyopathy, bilateral renal nodules, UTIs Last Myocardial Infarction Date:: 11/27/22 History of Any Multi-Drug Resistant Organisms: ESBL Year Discovered:: 10/23/23 ESBL E.coli MDRO Source:: Urine Past Surgical History: Heart Catheterization With Stent, Orthopedic Surgery, Tonsillectomy, Tubal Ligation Additional Past Surgical History / Comment(s): removal ovaries, bilateral cataract removal with lens implants, cervical spinal fusion, cervical steroid injection, PCI Past Anesthesia/Blood Transfusion Reactions: No Reported Reaction Additional Past Anesthesia/Blood Transfusion Reaction / Comm: N/A Date of Last Stent Placement:: 11/27/22 Past Psychological History: Anxiety Smoking Status: Former smoker - Past Family History Mother Family Medical History: Osteoarthritis (OA) Additional Family Medical History / Comment(s): Sister(s) Family Medical History: Cancer Additional Family Medical History / Comment(s): breast cancer Father Family Medical History: No Reported History Additional Family Medical History / Comment(s): Brother(s) Family Medical History: Osteoarthritis (OA) Daughter(s) Family Medical History: No Reported History Son(s) Family Medical History: No Reported History Medications and Allergies Home Medications Medication Instructions Recorded Confirmed Type Famotidine [Pepcid] 20 mg PO DAILY 02/26/20 09/21/24 History Atorvastatin [Lipitor] 40 mg PO DAILY 01/03/23 09/21/24 History Cholecalciferol [Vitamin D3 (25 25 mcg PO DAILY 01/03/23 09/21/24 History Mcg = 1000 Iu)] Metoprolol Succinate [Toprol XL] 50 mg PO HS 01/03/23 09/21/24 History calcitrioL 0.25 mcg PO MOTH 01/03/23 09/21/24 History Aspirin EC [Ecotrin Low Dose] 81 mg PO DAILY 02/13/23 09/21/24 History FLUoxetine HCL 40 mg PO DAILY 10/23/23 09/21/24 History Folic Acid/Vit B Complex and C 0.8 mg PO DAILY 10/23/23 09/21/24 History [Nephro-Trang Tablet] Magnesium Oxide [Mag-Ox] 400 mg PO MOTUWETHFR@2100 10/23/23 09/21/24 History Pantoprazole [Protonix] 40 mg PO BID 10/23/23 09/21/24 History Potassium Chloride ER [K-Dur 10] 10 meq PO DAILY 10/23/23 09/21/24 History Gentamicin 0.1% Cream 1 applic TOPICAL DAILY 04/10/24 09/21/24 History Calcium Acetate [PhosLo] 1,334 mg PO TID-W/MEALS 04/11/24 09/21/24 History Ondansetron Odt [Zofran ODT] 4 mg PO Q6HR PRN 04/11/24 09/21/24 History Calcium Acetate [Phoslo] 667 mg PO DAILY PRN 09/21/24 09/21/24 History Lubiprostone [Amitiza] 8 mcg PO BID 09/21/24 09/21/24 History Metoclopramide [Reglan] 5 mg PO AC-TID 09/21/24 09/21/24 History rOPINIRole HCL [Requip] 0.25 mg PO HS 09/21/24 09/21/24 History Allergies Allergy/AdvReac Type Severity Reaction Status Date / Time celecoxib [From Celebrex] Allergy Rash/Hives Verified 09/21/24 15:43 cephalexin [From Keflex] Allergy Unknown Verified 09/21/24 15:43 nitrofurantoin Allergy Rash all Verified 09/21/24 15:43 [From Macrobid] over nitrofurantoin Allergy Rash all Verified 09/21/24 15:43 macrocrystalline over [From Macrobid] sulfamethoxazole Allergy Face Verified 09/21/24 15:43 [From Bactrim] swelling trimethoprim [From Bactrim] Allergy Face Verified 09/21/24 15:43 swelling Physical Exam Vitals: Vital Signs Temp Pulse Resp BP Pulse Ox 09/22/24 09:23 92 18 108/66 98 09/22/24 08:02 95 22 94/47 99 09/22/24 06:10 98.2 F 95 20 98/84 99 09/22/24 05:11 86 18 104/60 09/22/24 03:12 99.1 F 89 22 92/61 99 09/21/24 22:19 97 09/21/24 22:08 91 22 101/60 09/21/24 19:41 98.7 F 90 18 95/70 96 09/21/24 16:26 92 16 92/55 92 L 09/21/24 13:16 97.4 F L 80 16 106/56 88 L GENERAL DESCRIPTION: Elderly female lying in bed, no distress. No tachypnea or accessory muscle of respiration use. HEENT: Shows Pallor , no scleral icterus. Oral mucous membrane is dry. NECK: Trachea central, no thyromegaly. LUNGS: Unlabored breathing. Clear to auscultation anteriorly. No wheeze or crackle. HEART: S1, S2, regular rate and rhythm. No loud murmur ABDOMEN: Soft, mild tenderness EXTREMITIES: No edema of feet. SKIN: No rash, no masses palpable. NEUROLOGICAL: The patient is lethargic less responsive orientation could not be determined Results CBC & Chem 7: 09/22/24 06:50 09/22/24 06:50 Labs: Abnormal Lab Results - Last 24 Hours (Table) 09/21/24 09/21/24 09/21/24 Range/Units 14:07 14:07 14:07 WBC 12.7 H (3.8-10.6) k/uL RBC 3.24 L (3.80-5.40) m/uL Hgb 10.3 L (11.4-16.0) gm/dL Hct 32.1 L (34.0-46.0) % MCV (80.0-100.0) fL MCH (25.0-35.0) pg RDW 17.7 H (11.5-15.5) % Plt Count 481 H (150-450) k/uL Neutrophils # 10.4 H (1.3-7.7) k/uL Sodium 128 L (137-145) mmol/L Potassium 2.5 L* (3.5-5.1) mmol/L Chloride 91 L (98-107) mmol/L Carbon Dioxide (22-30) mmol/L BUN 28 H (7-17) mg/dL Creatinine 5.20 H (0.52-1.04) mg/dL Glucose 107 H (74-99) mg/dL Plasma Lactic Acid Omar 4.0 H* (0.7-2.0) mmol/L AST 109 H (14-36) U/L ALT 36 H (4-34) U/L Alkaline Phosphatase 464 H (38-126) U/L Total Protein 5.1 L (6.3-8.2) g/dL Albumin 1.9 L (3.5-5.0) g/dL Amylase <30 L (30-110) U/L Urine Appearance (Clear) Urine Protein (Negative) Urine Glucose (UA) (Negative) Urine Blood (Negative) Urine Bilirubin (Negative) Ur Leukocyte Esterase (Negative) Urine WBC (0-5) /hpf Urine Bacteria (None) /hpf 09/21/24 09/21/24 09/21/24 Range/Units 14:52 17:28 20:41 WBC (3.8-10.6) k/uL RBC (3.80-5.40) m/uL Hgb (11.4-16.0) gm/dL Hct (34.0-46.0) % MCV (80.0-100.0) fL MCH (25.0-35.0) pg RDW (11.5-15.5) % Plt Count (150-450) k/uL Neutrophils # (1.3-7.7) k/uL Sodium (137-145) mmol/L Potassium (3.5-5.1) mmol/L Chloride (98-107) mmol/L Carbon Dioxide (22-30) mmol/L BUN (7-17) mg/dL Creatinine (0.52-1.04) mg/dL Glucose (74-99) mg/dL Plasma Lactic Acid Omar 4.5 H* 3.4 H* (0.7-2.0) mmol/L AST (14-36) U/L ALT (4-34) U/L Alkaline Phosphatase (38-126) U/L Total Protein (6.3-8.2) g/dL Albumin (3.5-5.0) g/dL Amylase (30-110) U/L Urine Appearance Turbid H (Clear) Urine Protein 1+ H (Negative) Urine Glucose (UA) Trace H (Negative) Urine Blood Small H (Negative) Urine Bilirubin 1+ H (Negative) Ur Leukocyte Esterase Large H (Negative) Urine WBC 110 H (0-5) /hpf Urine Bacteria Many H (None) /hpf 09/21/24 09/22/24 09/22/24 Range/Units 23:24 03:44 06:50 WBC 16.1 H (3.8-10.6) k/uL RBC 2.83 L (3.80-5.40) m/uL Hgb 10.0 L (11.4-16.0) gm/dL Hct 28.3 L (34.0-46.0) % MCV 100.1 H (80.0-100.0) fL MCH 35.5 H (25.0-35.0) pg RDW 18.2 H (11.5-15.5) % Plt Count (150-450) k/uL Neutrophils # 13.8 H (1.3-7.7) k/uL Sodium (137-145) mmol/L Potassium (3.5-5.1) mmol/L Chloride (98-107) mmol/L Carbon Dioxide (22-30) mmol/L BUN (7-17) mg/dL Creatinine (0.52-1.04) mg/dL Glucose (74-99) mg/dL Plasma Lactic Acid Omar 3.5 H* 5.0 H* (0.7-2.0) mmol/L AST (14-36) U/L ALT (4-34) U/L Alkaline Phosphatase (38-126) U/L Total Protein (6.3-8.2) g/dL Albumin (3.5-5.0) g/dL Amylase (30-110) U/L Urine Appearance (Clear) Urine Protein (Negative) Urine Glucose (UA) (Negative) Urine Blood (Negative) Urine Bilirubin (Negative) Ur Leukocyte Esterase (Negative) Urine WBC (0-5) /hpf Urine Bacteria (None) /hpf 09/22/24 09/22/24 Range/Units 06:50 06:50 WBC (3.8-10.6) k/uL RBC (3.80-5.40) m/uL Hgb (11.4-16.0) gm/dL Hct (34.0-46.0) % MCV (80.0-100.0) fL MCH (25.0-35.0) pg RDW (11.5-15.5) % Plt Count (150-450) k/uL Neutrophils # (1.3-7.7) k/uL Sodium 133 L (137-145) mmol/L Potassium (3.5-5.1) mmol/L Chloride (98-107) mmol/L Carbon Dioxide 14 L (22-30) mmol/L BUN 31 H (7-17) mg/dL Creatinine 6.01 H (0.52-1.04) mg/dL Glucose 123 H (74-99) mg/dL Plasma Lactic Acid Omar 5.6 H* (0.7-2.0) mmol/L AST (14-36) U/L ALT (4-34) U/L Alkaline Phosphatase (38-126) U/L Total Protein (6.3-8.2) g/dL Albumin (3.5-5.0) g/dL Amylase (30-110) U/L Urine Appearance (Clear) Urine Protein (Negative) Urine Glucose (UA) (Negative) Urine Blood (Negative) Urine Bilirubin (Negative) Ur Leukocyte Esterase (Negative) Urine WBC (0-5) /hpf Urine Bacteria (None) /hpf Assessment and Plan (1) Sepsis Current Visit: Yes Status: Acute Code(s): A41.9 - SEPSIS, UNSPECIFIED ORGANISM SNOMED Code(s): 03847967 (2) UTI (urinary tract infection) Current Visit: Yes Status: Acute Code(s): N39.0 - URINARY TRACT INFECTION, SITE NOT SPECIFIED SNOMED Code(s): 72304121 (3) Allergy to multiple antibiotics Current Visit: No Status: Acute Code(s): Z88.1 - ALLERGY STATUS TO OTHER ANTIBIOTIC AGENTS SNOMED Code(s): 299012086 Plan: 1patient presented to hospital with abdominal pain to the right lower quadrant area in this patient who did have a history of end-stage disease on peritoneal dialysis with a question of PD catheter associated peritonitis versus UTI the patient still makes urine he did have significantly positive UA 2patient with multiple antibiotic ALLERGIES that would limit the number of antibiotic safe to use 3-Case has been discussed with the nephrology PD fluid should be obtained and sent for cell count differential and culture 4-patient will empirically treated with meropenem while waiting for the workup to be completed Family at the bedside multiple question answered We will follow on clinical condition and cultures to further adjust medication if needed Thank you for this consultation we will follow the patient along with you Dictation was produced using [employer] dictation software. please excuse any grammatical, word or spelling errors.
[2024-09-22] MEDS: MAGNESIUM OXIDE 400 MG TAB PO SCH (22:33)
[2024-09-23] MEDS: DIALYSIS (PERIT 1.5%) 2,000 ML 30 G/2,000 ML BAG INTRAPERIT SCH ×2 (03:01→16:50)
[2024-09-23 06:16] LABS: Glucose,Whole Blood 131 mg/dL (70-110)
[2024-09-23] MEDS: SODIUM CHLORIDE 0.9% 1,000 ML IV ONE ×2 (06:51→13:25)
--- NOTE | 2024-09-23 06:51 | P.PN ---
Progress Note - Text Progress Note Date: 09/23/24 Patient's lactic acid is 8.6 today morning. It has been trending upwards since the past couple of days. Abdomen isn't tender/distended on examination.Patient is afebrile, not tachycardic. Patient given a 1000ml bolus of 0.9 normal saline. Lactic acidosis, possibly secondary to Liver cirrhosis and bicarb drip. Consider and discuss discontinuation of bicarb drip with nephrology.
[2024-09-23 09:36] LABS: Anisocytosis Slight; HCT 28.5 % (34.0-46.0); HGB 9.2 gm/dL (11.4-16.0); Hypochromasia Slight; MCH 32.4 pg (25.0-35.0); MCHC 32.3 g/dL (31.0-37.0); MCV 100.4 fL (80.0-100.0); Macrocytosis Moderate; Mean Platelet Volume 8.2; Platelet Count 264 k/uL (150-450); RBC 2.84 m/uL (3.80-5.40); RDW 18.8 % (11.5-15.5)
[2024-09-23 09:57] LABS: Lactic Acid, Venous 5.5 mmol/L (0.7-2.0)
[2024-09-23 10:05] LABS: Eosinophils # (M) 0.24 k/uL (0-0.7); Lymphocytes # (M) 1.68 k/uL (1.0-4.8); Monocytes # (M) 0.72 k/uL (0-1.0); Neutrophils % (M) 90 %; Nucleated Red Blood Cells 0 /100 WBC (0-0); Total Cells Counted 200
[2024-09-23 10:06] LABS: ALT 61 U/L (4-34); AST 214 U/L (14-36); African American GFR (CKD) 9 (>60 ml/min/1.73 sqM); Albumin 1.6 g/dL (3.5-5.0); Alkaline Phosphatase 338 U/L (38-126); Anion Gap 8 mmol/L; Blood Urea Nitrogen 27 mg/dL (7-17); Calcium 8.5 mg/dL (8.4-10.2); Carbon Dioxide 25 mmol/L (22-30); Chloride 99 mmol/L (98-107); Glucose 101 mg/dL (74-99); Magnesium 1.9 mg/dL (1.6-2.3); Non-African American GFR(CKD) 8 (>60 ml/min/1.73 sqM); Sodium 132 mmol/L (137-145); Total Bilirubin 0.4 mg/dL (0.2-1.3); Total Protein 4.3 g/dL (6.3-8.2)
[2024-09-23 10:07] LABS: Poikilocytosis (M) Present; Polychromasia Present
[2024-09-23 10:09] LABS: Potassium 2.5 mmol/L (3.5-5.1)
[2024-09-23] MEDS: MORPHINE SULFATE 2 MG/ML SYRINGE IVP PRN (10:25)
--- NOTE | 2024-09-23 12:17 | P.PN ---
Subjective Progress Note Date: 09/23/24 Hospital course Patient is a 79-year-old female with a past medical history of end-stage renal disease on peritoneal dialysis, chronic systolic heart failure, hypertension, hyperlipidemia, coronary artery disease status post stent placement who presents to the ED with weakness and pain. Patient is a poor historian. I obtained history from daughter who is at bedside and is a pathologist. Per daughter 2 weeks ago patient had a fall and since then has been declining. Daughter states that patient has been eating and drinking less is not able to swallow her potassium pills. Patient has also been getting more confused. Patient prior to the fall was able to complete all her daily activities. Per daughter as baseline patient can walk around with minimal assistance with just holding the hand of her . She only requires some assistance with putting on her clothes. Now patient can barely stand up and requires two-person assistance. When I asked the patient where she has pain she touched her right lower abdomen. In the ED WBC 12.7, potassium 2.5, lactic acid 4.0, albumin 1.9, UA showed large leukocyte esterase and [address] abdomen pelvis showed nodular contour to the liver suggestive of hepatic cirrhosis with ascites. Patient also found to have left superior and inferior pubic rami fractures with mild displacement. Patient was referred to the medicine service for admission. Nephrology was consulted for peritoneal dialysis. Infectious disease was consulted due to history of multiple allergies as well as drug-resistant bacteria. Neurology was consulted due to worsening mental status. Patient's lactic acid was increasing so pulmonology was consulted for septic shock. Pulmonology recommended to resuscitate the patient. Subjective Patient seen this morning. Her mental status is slightly better today compared to yesterday. Patient is moaning and groaning. She does mumble some words. Family were at bedside. I had a lengthy discussion with daughter and at bedside and both agreed to DNR/DNI. Otherwise family would like full care. 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 She is mumbling some words. Psych -patient is moaning and groaning. Assessment and plan Acute toxic metabolic encephalopathy Urinary tract infection with lower abdominal pain Septic shock with elevated lactic acid, tachycardia and leukocytosis. I reviewed urine culture that is growing gram-negative bacilli I reviewed reviewed blood cultures that are negative to date I reviewed cultures from peritoneal fluid that is negative to date Continue with meropenem renally dosed at 1 g every 24 hours. Will also start the patient on pharmacy to dose vancomycin. Infectious disease consult I reviewed note from infectious disease who recommends to continue with the meropenem This morning lactic acid increased to 8.6. Patient was given a liter normal saline. Lactic acid then improved to 5.5. Will give another liter of normal saline. Continue with lactated Ringer's at 100 cc an hour. Supervisor [employer] Clerks on board as well Will consult neurology to rule out seizure. Severe hypokalemia on admission Potassium this morning improved to 2.5. Nephrology ordered 20 mg of potassium chloride. I will order an additional 20 mg of IV potassium chloride Replete as needed Severe malnutrition Patient's albumin is 1.6. Currently patient is not able to tolerate any p.o. intake and failed swallow eval This is obviously a chronic issue. At present do not think provide nutrition would change patient's condition. Obviously the patient not able to tolerate any p.o. intake then may need to start tube feeds in 1 to 2 days. I have consulted the dietitian for recommendations on tube feed Hypovolemic hyponatremia Dehydration Sodium this morning improved to 132. Continue fluids as mentioned above Generalized weakness PT OT consult -> patient currently not following commands so is not able to work with physical therapy ESRD on PD Metabolic acidosis Nephrology consult to manage dialysis Patient also on bicarb drip Liver cirrhosis seen on CT scan Outpatient workup with gastroenterology. At this time patient does not show any signs of decompensated liver cirrhosis. Hypertension Blood pressure is on the low side so we will hold off on BP meds Coronary artery disease Status post cardiac stent Continue with aspirin 81 mg p.o. daily, atorvastatin 40 mg p.o. daily Hold off on metoprolol due to low blood pressure. Chronic systolic heart failure Patient currently appears hypovolemic Will hold off on diuretics and beta-velasquez for now due to low blood pressure Mild nondisplaced pelvic fractures Patient was here in the ED 2 weeks ago and was evaluated by orthopedic surgery who said no surgical intervention. Anxiety and depression Continue with Prozac 40 mg p.o. daily, Requip 0.25 mg p.o. at bedtime DVT prophylaxis: Subcu heparin Discussed with daughter and at bedside who agreed to DNR/DNI CODE STATUS was changed Objective - Vital Signs Vital signs: Vital Signs Temp 98.3 F 09/23/24 11:14 Pulse 89 09/23/24 11:14 Resp 18 09/23/24 11:14 BP 86/50 09/23/24 11:14 Pulse Ox 94 L 09/23/24 11:14 FiO2 Intake & Output 09/22/24 09/23/24 09/23/24 18:59 06:59 18:59 Output Total 0 Balance 0 Weight 30.5 kg Output: Urine 0 Other: Voiding Method Diaper - Labs CBC & Chem 7: 09/23/24 08:53 09/23/24 08:53 Labs: Abnormal Lab Results - Last 24 Hours (Table) 09/22/24 09/22/24 09/23/24 Range/Units 11:19 15:24 00:05 WBC (3.8-10.6) k/uL RBC (3.80-5.40) m/uL Hgb (11.4-16.0) gm/dL Hct (34.0-46.0) % MCV (80.0-100.0) fL RDW (11.5-15.5) % Neutrophils # (Manual) (1.3-7.7) k/uL Sodium (137-145) mmol/L Potassium (3.5-5.1) mmol/L BUN (7-17) mg/dL Creatinine (0.52-1.04) mg/dL Glucose (74-99) mg/dL POC Glucose (mg/dL) (70-110) mg/dL Plasma Lactic Acid Omar 4.6 H* 4.5 H* 5.8 H* (0.7-2.0) mmol/L AST (14-36) U/L ALT (4-34) U/L Alkaline Phosphatase (38-126) U/L Total Protein (6.3-8.2) g/dL Albumin (3.5-5.0) g/dL 09/23/24 09/23/24 09/23/24 Range/Units 04:01 06:14 08:53 WBC (3.8-10.6) k/uL RBC (3.80-5.40) m/uL Hgb (11.4-16.0) gm/dL Hct (34.0-46.0) % MCV (80.0-100.0) fL RDW (11.5-15.5) % Neutrophils # (Manual) (1.3-7.7) k/uL Sodium 132 L (137-145) mmol/L Potassium 2.5 L* (3.5-5.1) mmol/L BUN 27 H (7-17) mg/dL Creatinine 4.84 H (0.52-1.04) mg/dL Glucose 101 H (74-99) mg/dL POC Glucose (mg/dL) 131 H (70-110) mg/dL Plasma Lactic Acid Omar 8.6 H* (0.7-2.0) mmol/L AST 214 H (14-36) U/L ALT 61 H (4-34) U/L Alkaline Phosphatase 338 H (38-126) U/L Total Protein 4.3 L (6.3-8.2) g/dL Albumin 1.6 L (3.5-5.0) g/dL 09/23/24 09/23/24 Range/Units 08:53 09:19 WBC 24.0 H (3.8-10.6) k/uL RBC 2.84 L (3.80-5.40) m/uL Hgb 9.2 L (11.4-16.0) gm/dL Hct 28.5 L (34.0-46.0) % MCV 100.4 H (80.0-100.0) fL RDW 18.8 H (11.5-15.5) % Neutrophils # (Manual) 21.60 H (1.3-7.7) k/uL Sodium (137-145) mmol/L Potassium (3.5-5.1) mmol/L BUN (7-17) mg/dL Creatinine (0.52-1.04) mg/dL Glucose (74-99) mg/dL POC Glucose (mg/dL) (70-110) mg/dL Plasma Lactic Acid Omar 5.5 H* (0.7-2.0) mmol/L AST (14-36) U/L ALT (4-34) U/L Alkaline Phosphatase (38-126) U/L Total Protein (6.3-8.2) g/dL Albumin (3.5-5.0) g/dL Microbiology - Last 24 Hours (Table) 09/22/24 13:11 Gram Stain - Preliminary Peritoneal Fluid Body Fluid Culture - Preliminary 09/21/24 20:41 Blood Culture - Preliminary Blood 09/21/24 18:43 Blood Culture - Preliminary Blood 09/21/24 22:00 Urine Culture - Preliminary Urine,Clean Catch Gram Neg Bacilli
--- NOTE | 2024-09-23 12:34 | P.PN ---
Subjective patient is seen for follow-up for end-stage renal disease. Overall slightly better from yesterday. Seems to communicate more today. Family is present at bedside. Having a PD exchange currently. No diarrhea or vomiting. Maintained on IV bicarb Serum potassium was 2.5 this morning. Objective - Vital Signs Vital signs: Vital Signs Temp 98.3 F 09/23/24 11:14 Pulse 89 09/23/24 11:14 Resp 18 09/23/24 11:14 BP 86/50 09/23/24 11:14 Pulse Ox 94 L 09/23/24 11:14 FiO2 Intake & Output 09/22/24 09/23/24 09/23/24 18:59 06:59 18:59 Output Total 0 Balance 0 Weight 30.5 kg Output: Urine 0 Other: Voiding Method Diaper - Exam patient is comfortable. nods to questions. Examination of the heart S1 and S2 Examination of the lungs bilateral breath sounds are heard Abdomen is soft nontender Examination of lower extremity shows no significant edema Moving all 4 extremities. - Labs CBC & Chem 7: 09/23/24 08:53 09/23/24 08:53 Labs: Abnormal Lab Results - Last 24 Hours (Table) 09/22/24 09/22/24 09/23/24 Range/Units 11:19 15:24 00:05 WBC (3.8-10.6) k/uL RBC (3.80-5.40) m/uL Hgb (11.4-16.0) gm/dL Hct (34.0-46.0) % MCV (80.0-100.0) fL RDW (11.5-15.5) % Neutrophils # (Manual) (1.3-7.7) k/uL Sodium (137-145) mmol/L Potassium (3.5-5.1) mmol/L BUN (7-17) mg/dL Creatinine (0.52-1.04) mg/dL Glucose (74-99) mg/dL POC Glucose (mg/dL) (70-110) mg/dL Plasma Lactic Acid Omar 4.6 H* 4.5 H* 5.8 H* (0.7-2.0) mmol/L AST (14-36) U/L ALT (4-34) U/L Alkaline Phosphatase (38-126) U/L Total Protein (6.3-8.2) g/dL Albumin (3.5-5.0) g/dL 09/23/24 09/23/24 09/23/24 Range/Units 04:01 06:14 08:53 WBC (3.8-10.6) k/uL RBC (3.80-5.40) m/uL Hgb (11.4-16.0) gm/dL Hct (34.0-46.0) % MCV (80.0-100.0) fL RDW (11.5-15.5) % Neutrophils # (Manual) (1.3-7.7) k/uL Sodium 132 L (137-145) mmol/L Potassium 2.5 L* (3.5-5.1) mmol/L BUN 27 H (7-17) mg/dL Creatinine 4.84 H (0.52-1.04) mg/dL Glucose 101 H (74-99) mg/dL POC Glucose (mg/dL) 131 H (70-110) mg/dL Plasma Lactic Acid Omar 8.6 H* (0.7-2.0) mmol/L AST 214 H (14-36) U/L ALT 61 H (4-34) U/L Alkaline Phosphatase 338 H (38-126) U/L Total Protein 4.3 L (6.3-8.2) g/dL Albumin 1.6 L (3.5-5.0) g/dL 09/23/24 09/23/24 Range/Units 08:53 09:19 WBC 24.0 H (3.8-10.6) k/uL RBC 2.84 L (3.80-5.40) m/uL Hgb 9.2 L (11.4-16.0) gm/dL Hct 28.5 L (34.0-46.0) % MCV 100.4 H (80.0-100.0) fL RDW 18.8 H (11.5-15.5) % Neutrophils # (Manual) 21.60 H (1.3-7.7) k/uL Sodium (137-145) mmol/L Potassium (3.5-5.1) mmol/L BUN (7-17) mg/dL Creatinine (0.52-1.04) mg/dL Glucose (74-99) mg/dL POC Glucose (mg/dL) (70-110) mg/dL Plasma Lactic Acid Omar 5.5 H* (0.7-2.0) mmol/L AST (14-36) U/L ALT (4-34) U/L Alkaline Phosphatase (38-126) U/L Total Protein (6.3-8.2) g/dL Albumin (3.5-5.0) g/dL Microbiology - Last 24 Hours (Table) 09/22/24 13:11 Gram Stain - Preliminary Peritoneal Fluid Body Fluid Culture - Preliminary 09/21/24 20:41 Blood Culture - Preliminary Blood 09/21/24 18:43 Blood Culture - Preliminary Blood 09/21/24 22:00 Urine Culture - Preliminary Urine,Clean Catch Gram Neg Bacilli Assessment and Plan Assessment: 1. End-stage renal disease on peritoneal dialysis 2. Abdominal pain most likely related to UTI. PD fluid cell count is pending 3. Metabolic acidosis associated with end-stage renal disease as well as lactic acidosis and underlying infection 4. CK D mineral bone disorder 5. Sepsis from UTI 6. Hypokalemia Plan: rreplace potassium DC IV bicarb and continue with the Ringer lactate Follow-up on PD fluid cell count Continue antibiotics
[2024-09-23] MEDS: POTASSIUM CHLORIDE 20 MEQ in WATER FOR INJECTION 1 100ML.BAG IVPB ONE (13:37)
[2024-09-23] MEDS: POTASSIUM CHLORIDE ER 20 MEQ TAB.ER PO STA (13:39)
--- NOTE | 2024-09-23 13:39 | P.CNNES ---
History of Present Illness Consult date: 09/23/24 Requesting physician: April Mcdonough Reason for Consult: altered mental status History of Present Illness: This is an 79-year-old woman who presents the emergency department on 09/21/2024 for weakness and pain. Patient is unable to provide history because of her severe confusion. History is obtained from primary team and medical record. Seems that the patient had a fall about 2 weeks ago and since then she has been declining. She has been eating and drinking less. Prior to the fall patient was able to complete all her daily activity and was walking around with minimal assistant surveyor and it seems she was only holding and for some assistance. She did require some assistance with putting her clothes on. Per the primary team it seems that the patient is severely malnutrition. Primary team felt family noted the patient had ?dystonic posture in the hospital. Patient has underlying history of end-stage renal disease on peritoneal dialysis, chronic systolic heart failure, hypertension, hyperlipidemia, coronary artery disease status post stent. Some of the workup during this hospital visit consisted of: Patient initial sodium on presentation was 128 and currently is 132 AST is trending up at 214 ALT is also trended up currently 61 Ammonia level is 10 Potassium is 2.5 Albumin level is 1.7 Cultures positive for gram-negative bacilli. I reviewed the rest of the lab workup Review of Systems Limited but as per HPI. Past Medical History Past Medical History: Coronary Artery Disease (CAD), Heart Failure, Eye Disorder, GERD/Reflux, GI Bleed, Hyperlipidemia, Hypertension, Myocardial Infarction (NC), Musculoskeletal Disorder, Osteoarthritis (OA), Renal Disease Additional Past Medical History / Comment(s): anemia-iron deficiency, chronic kidney disease stage V- on CAPD, diverticular disease, osteoporosis, cataract, hiatal hernia, ischemic cardiomyopathy, bilateral renal nodules, UTIs Last Myocardial Infarction Date:: 11/27/22 History of Any Multi-Drug Resistant Organisms: ESBL Date of last positivie culture/infection: 10/23/23 ESBL E.coli MDRO Source:: Urine Past Surgical History: Heart Catheterization With Stent, Orthopedic Surgery, Tonsillectomy, Tubal Ligation Additional Past Surgical History / Comment(s): removal ovaries, bilateral cataract removal with lens implants, cervical spinal fusion, cervical steroid injection, PCI Past Anesthesia/Blood Transfusion Reactions: No Reported Reaction Additional Past Anesthesia/Blood Transfusion Reaction / Comment(s): N/A Date of Last Stent Placement:: 11/27/22 Past Psychological History: Anxiety Smoking Status: Former smoker - Past Family History Mother Family Medical History: Osteoarthritis (OA) Additional Family Medical History / Comment(s): Sister(s) Family Medical History: Cancer Additional Family Medical History / Comment(s): breast cancer Father Family Medical History: No Reported History Additional Family Medical History / Comment(s): Brother(s) Family Medical History: Osteoarthritis (OA) Daughter(s) Family Medical History: No Reported History Son(s) Family Medical History: No Reported History Medications and Allergies Home Medications Medication Instructions Recorded Confirmed Type Famotidine [Pepcid] 20 mg PO DAILY 02/26/20 09/21/24 History Atorvastatin [Lipitor] 40 mg PO DAILY 01/03/23 09/21/24 History Cholecalciferol [Vitamin D3 (25 25 mcg PO DAILY 01/03/23 09/21/24 History Mcg = 1000 Iu)] Metoprolol Succinate [Toprol XL] 50 mg PO HS 01/03/23 09/21/24 History calcitrioL 0.25 mcg PO MOTH 01/03/23 09/21/24 History Aspirin EC [Ecotrin Low Dose] 81 mg PO DAILY 02/13/23 09/21/24 History FLUoxetine HCL 40 mg PO DAILY 10/23/23 09/21/24 History Folic Acid/Vit B Complex and C 0.8 mg PO DAILY 10/23/23 09/21/24 History [Nephro-Trang Tablet] Magnesium Oxide [Mag-Ox] 400 mg PO MOTUWETHFR@2100 10/23/23 09/21/24 History Pantoprazole [Protonix] 40 mg PO BID 10/23/23 09/21/24 History Potassium Chloride ER [K-Dur 10] 10 meq PO DAILY 10/23/23 09/21/24 History Gentamicin 0.1% Cream 1 applic TOPICAL DAILY 04/10/24 09/21/24 History Calcium Acetate [PhosLo] 1,334 mg PO TID-W/MEALS 04/11/24 09/21/24 History Ondansetron Odt [Zofran ODT] 4 mg PO Q6HR PRN 04/11/24 09/21/24 History Calcium Acetate [Phoslo] 667 mg PO DAILY PRN 09/21/24 09/21/24 History Lubiprostone [Amitiza] 8 mcg PO BID 09/21/24 09/21/24 History Metoclopramide [Reglan] 5 mg PO AC-TID 09/21/24 09/21/24 History rOPINIRole HCL [Requip] 0.25 mg PO HS 09/21/24 09/22/24 History Allergies Allergy/AdvReac Type Severity Reaction Status Date / Time celecoxib [From Celebrex] Allergy Rash/Hives Verified 09/21/24 15:43 cephalexin [From Keflex] Allergy Unknown Verified 09/21/24 15:43 nitrofurantoin Allergy Rash all Verified 09/21/24 15:43 [From Macrobid] over nitrofurantoin Allergy Rash all Verified 09/21/24 15:43 macrocrystalline over [From Macrobid] sulfamethoxazole Allergy Face Verified 09/21/24 15:43 [From Bactrim] swelling trimethoprim [From Bactrim] Allergy Face Verified 09/21/24 15:43 swelling Physical Examination - Vital Signs Vital Signs: Vital Signs Temp Pulse Pulse Resp BP BP Pulse Ox 09/23/24 11:14 98.3 F 89 18 86/50 94 L 09/23/24 10:58 98.3 F 89 18 86/50 94 L 09/23/24 03:30 97.9 F 71 20 92/60 95 09/23/24 03:09 97.7 F 71 19 92/60 95 09/23/24 00:00 98.2 F 68 18 94/50 94 L 09/22/24 22:10 98.3 F 58 L 19 105/68 95 09/22/24 21:43 98.3 F 19 109/76 96 09/22/24 20:30 98.3 F 70 19 109/76 96 09/22/24 18:55 88 22 90/55 99 09/22/24 14:00 98.9 F 92 20 100/55 98 Intake and Output 09/22/24 09/23/24 09/23/24 22:59 06:59 14:59 Output Total 0 Balance 0 Output: Urine 0 Other: Voiding Method Diaper Diaper Weight 40.823 kg 30.5 kg General: Lying in bed and does not appear in acute distress. HENT: Patient was resistant on flexing her neck. Neuro: Severely limited. Patient is severely encephalopathic but is briefly awakeable to voice. She uttered a name in low pitched voice and sounded like her name. Other not following commands or verbalizing. Pupils are round, 3mm and reactive to light. No facial weakness from limitation. Motor: Strength is severely limited. But lifted the right upper extremity above gravity spontaneously. Otherwise rest are limited. Results - Laboratory Findings CBC and BMP: 09/23/24 08:53 09/23/24 08:53 Abnormal Lab Findings: Abnormal Labs 09/21/24 09/21/24 09/21/24 14:07 14:07 14:07 WBC 12.7 H RBC 3.24 L Hgb 10.3 L Hct 32.1 L MCV MCH RDW 17.7 H Plt Count 481 H Neutrophils # 10.4 H Neutrophils # (Manual) Sodium 128 L Potassium 2.5 L* Chloride 91 L Carbon Dioxide BUN 28 H Creatinine 5.20 H Glucose 107 H POC Glucose (mg/dL) Plasma Lactic Acid Omar 4.0 H* AST 109 H ALT 36 H Alkaline Phosphatase 464 H Total Protein 5.1 L Albumin 1.9 L Amylase <30 L Urine Appearance Urine Protein Urine Glucose (UA) Urine Blood Urine Bilirubin Ur Leukocyte Esterase Urine WBC Urine Bacteria 09/21/24 09/21/24 09/21/24 14:52 17:28 20:41 WBC RBC Hgb Hct MCV MCH RDW Plt Count Neutrophils # Neutrophils # (Manual) Sodium Potassium Chloride Carbon Dioxide BUN Creatinine Glucose POC Glucose (mg/dL) Plasma Lactic Acid Omar 4.5 H* 3.4 H* AST ALT Alkaline Phosphatase Total Protein Albumin Amylase Urine Appearance Turbid H Urine Protein 1+ H Urine Glucose (UA) Trace H Urine Blood Small H Urine Bilirubin 1+ H Ur Leukocyte Esterase Large H Urine WBC 110 H Urine Bacteria Many H 09/21/24 09/22/24 09/22/24 23:24 03:44 06:50 WBC 16.1 H RBC 2.83 L Hgb 10.0 L Hct 28.3 L MCV 100.1 H MCH 35.5 H RDW 18.2 H Plt Count Neutrophils # 13.8 H Neutrophils # (Manual) Sodium Potassium Chloride Carbon Dioxide BUN Creatinine Glucose POC Glucose (mg/dL) Plasma Lactic Acid Omar 3.5 H* 5.0 H* AST ALT Alkaline Phosphatase Total Protein Albumin Amylase Urine Appearance Urine Protein Urine Glucose (UA) Urine Blood Urine Bilirubin Ur Leukocyte Esterase Urine WBC Urine Bacteria 09/22/24 09/22/24 09/22/24 06:50 06:50 11:19 WBC RBC Hgb Hct MCV MCH RDW Plt Count Neutrophils # Neutrophils # (Manual) Sodium 133 L Potassium Chloride Carbon Dioxide 14 L BUN 31 H Creatinine 6.01 H Glucose 123 H POC Glucose (mg/dL) Plasma Lactic Acid Omar 5.6 H* 4.6 H* AST ALT Alkaline Phosphatase Total Protein Albumin Amylase Urine Appearance Urine Protein Urine Glucose (UA) Urine Blood Urine Bilirubin Ur Leukocyte Esterase Urine WBC Urine Bacteria 09/22/24 09/23/24 09/23/24 15:24 00:05 04:01 WBC RBC Hgb Hct MCV MCH RDW Plt Count Neutrophils # Neutrophils # (Manual) Sodium Potassium Chloride Carbon Dioxide BUN Creatinine Glucose POC Glucose (mg/dL) Plasma Lactic Acid Omar 4.5 H* 5.8 H* 8.6 H* AST ALT Alkaline Phosphatase Total Protein Albumin Amylase Urine Appearance Urine Protein Urine Glucose (UA) Urine Blood Urine Bilirubin Ur Leukocyte Esterase Urine WBC Urine Bacteria 09/23/24 09/23/24 09/23/24 06:14 08:53 08:53 WBC 24.0 H RBC 2.84 L Hgb 9.2 L Hct 28.5 L MCV 100.4 H MCH RDW 18.8 H Plt Count Neutrophils # Neutrophils # (Manual) 21.60 H Sodium 132 L Potassium 2.5 L* Chloride Carbon Dioxide BUN 27 H Creatinine 4.84 H Glucose 101 H POC Glucose (mg/dL) 131 H Plasma Lactic Acid Omar AST 214 H ALT 61 H Alkaline Phosphatase 338 H Total Protein 4.3 L Albumin 1.6 L Amylase Urine Appearance Urine Protein Urine Glucose (UA) Urine Blood Urine Bilirubin Ur Leukocyte Esterase Urine WBC Urine Bacteria 09/23/24 09/23/24 09:19 12:10 WBC RBC Hgb Hct MCV MCH RDW Plt Count Neutrophils # Neutrophils # (Manual) Sodium Potassium Chloride Carbon Dioxide BUN Creatinine Glucose POC Glucose (mg/dL) Plasma Lactic Acid Omar 5.5 H* 4.8 H* AST ALT Alkaline Phosphatase Total Protein Albumin Amylase Urine Appearance Urine Protein Urine Glucose (UA) Urine Blood Urine Bilirubin Ur Leukocyte Esterase Urine WBC Urine Bacteria Assessment and Plan Assessment: This is an 79 y/o woman who presents the emergency department on 09/21/2024 for weakness and pain. Seems the patient had a fall about 2 weeks ago and since then has been declining. She has been having decreased and oral intake and she is severely malnourished. She is severely confused. She has hyponatremia, elevated liver function test as well as acute urinary tract infection Altered mental status seems due to multifactorial metabolic encephalopathy as well as component due to acute urinary tract Acute urinary tract Hyponatremia trending up Hypokalemia Malnutrition Transaminitis--trending up Underlying history of end-stage renal disease on peritoneal dialysis Chronic start heart failure Underlying history of hypertension Hyperlipidemia History of coronary artery disease status post stent Plan: I ordered a CT of the head to rule out any acute or subacute stroke. Ordered routine EEG Ordered TSH, vitamin B12 folate level Infection diseases on board Nephrology is on board Pulmonary team is on board Will defer the rest of the medical management to primary and other specialist next Plan discussed with the primary team Thank you for the consultation Time with Patient: Greater than 30
[2024-09-23] MEDS: POTASSIUM CHLORIDE 20 MEQ in WATER FOR INJECTION 1 100ML.BAG IVPB STA ×2 (13:40→16:35)
--- NOTE | 2024-09-23 14:06 | P.PN ---
Subjective Progress Note Date: 09/23/24 Principal diagnosis: Urosepsis. This is an 79-year-old female patient with a known history of degenerative joint disease, myocardial infarction, coronary artery disease with previous stent placement, congestive heart failure, gastroesophageal reflux disease, hypertension, end-stage renal disease peritoneal dialysis, hyperlipidemia who presented here to the emergency room yesterday with complaints of abdominal pain altered mental status. Count 16.1. Hemoglobin 10.0. Platelets 329. Sodium 133. Potassium 3.5. Bicarb 14. BUN 31. Creatinine 6.01. Glucose 123. Lactic acid 5.6, 4.6. AST 109. ALT 36. Alk phos 464. Lipase 121. Urinalysis turbid with many bacteria. CT scan of the abdomen and pelvis revealed no acute abdominal process. Some nodular contour of the liver suggestive of hepatic cirrhosis with ascites. Peritoneal dialysis catheter within the right abdomen. Small left pleural effusion. Colonic diverticulosis. Left superior and inferior pubic rami fractures with mild displacement. She is seen today in consultation in the emergency department. She is being considered for ICU placement. She is altered. Obtunded. Poor historian. Unclear of her baseline status. She is currently afebrile. Hemodynamically stable. On 2 L nasal cannula with O2 saturations up to 98%. Received 1 L of fluid resuscitation. Currently on lactated Ringer's at 100 mL/h. She has been initiated on meropenem. She has been initiated on D5W with 3 A of bicarb at 80 mL/h. Heparin for DVT prophylaxis. Blood and urine culture pending. Peritoneal fluid cultures pending. Progress note dated September 23, 2024. 79-year-old female that we saw in the emergency department yesterday, for hypotension, and sepsis. The patient appears to have a urinary tract infection. She is a DO NOT RESUSCITATE patient. She is seen today in room 367. She continues on oxygen, 4 L by nasal cannula. The patient is a chemical code only, no CPR, and the patient is not to be intubated. She is getting lactated Ringer's at 100 cc an hour, meropenem, and D5W with 3 ampoules of sodium bicarb and then 80 cc an hour. Her urine reveals evidence of gram-negative bacilli. White count is 24, hemoglobin 9.2, hematocrit 28.5, platelet count 264,000. Sodium 132, potassium 2.5, chlorides 99, CO2 25, BUN 27, creatinine 4.84. Her most recent lactic acid is 4.8. AST is 214. ALT is 61. Ammonia levels 10. Albumin is 1.6. Objective - Vital Signs Vital signs: Vital Signs Temp 98.3 F 09/23/24 11:14 Pulse 89 09/23/24 11:14 Resp 18 09/23/24 11:14 BP 86/50 09/23/24 11:14 Pulse Ox 94 L 09/23/24 11:14 FiO2 Intake & Output 09/22/24 09/23/24 09/23/24 18:59 06:59 18:59 Output Total 0 Balance 0 Weight 30.5 kg 30.5 kg Output: Urine 0 Other: Voiding Method Diaper - Exam The patient is very lethargic and somnolent. She really does not respond verbally. HEENT examination is grossly unremarkable. Neck supple. Full range of motion. No adenopathy thyromegaly or neck vein distention. Cardiovascular examination reveals regular rhythm rate. S1-S2 normal. No S3 or S4. No discernible murmur noted. Lungs reveal scattered rhonchi. No wheezes or crackles. 4 L saturation is 95%. Abdomen soft bowel sounds are heard. No masses or tenderness. Extremities are intact. No cyanosis clubbing or edema. Skin is without rash or lesion. Neurologic examination is brief but nonfocal. - Labs CBC & Chem 7: 09/23/24 08:53 09/23/24 08:53 Labs: Abnormal Lab Results - Last 24 Hours (Table) 09/22/24 09/23/24 09/23/24 Range/Units 15:24 00:05 04:01 WBC (3.8-10.6) k/uL RBC (3.80-5.40) m/uL Hgb (11.4-16.0) gm/dL Hct (34.0-46.0) % MCV (80.0-100.0) fL RDW (11.5-15.5) % Neutrophils # (Manual) (1.3-7.7) k/uL Sodium (137-145) mmol/L Potassium (3.5-5.1) mmol/L BUN (7-17) mg/dL Creatinine (0.52-1.04) mg/dL Glucose (74-99) mg/dL POC Glucose (mg/dL) (70-110) mg/dL Plasma Lactic Acid Omar 4.5 H* 5.8 H* 8.6 H* (0.7-2.0) mmol/L AST (14-36) U/L ALT (4-34) U/L Alkaline Phosphatase (38-126) U/L Total Protein (6.3-8.2) g/dL Albumin (3.5-5.0) g/dL 09/23/24 09/23/24 09/23/24 Range/Units 06:14 08:53 08:53 WBC 24.0 H (3.8-10.6) k/uL RBC 2.84 L (3.80-5.40) m/uL Hgb 9.2 L (11.4-16.0) gm/dL Hct 28.5 L (34.0-46.0) % MCV 100.4 H (80.0-100.0) fL RDW 18.8 H (11.5-15.5) % Neutrophils # (Manual) 21.60 H (1.3-7.7) k/uL Sodium 132 L (137-145) mmol/L Potassium 2.5 L* (3.5-5.1) mmol/L BUN 27 H (7-17) mg/dL Creatinine 4.84 H (0.52-1.04) mg/dL Glucose 101 H (74-99) mg/dL POC Glucose (mg/dL) 131 H (70-110) mg/dL Plasma Lactic Acid Omar (0.7-2.0) mmol/L AST 214 H (14-36) U/L ALT 61 H (4-34) U/L Alkaline Phosphatase 338 H (38-126) U/L Total Protein 4.3 L (6.3-8.2) g/dL Albumin 1.6 L (3.5-5.0) g/dL 09/23/24 09/23/24 Range/Units 09:19 12:10 WBC (3.8-10.6) k/uL RBC (3.80-5.40) m/uL Hgb (11.4-16.0) gm/dL Hct (34.0-46.0) % MCV (80.0-100.0) fL RDW (11.5-15.5) % Neutrophils # (Manual) (1.3-7.7) k/uL Sodium (137-145) mmol/L Potassium (3.5-5.1) mmol/L BUN (7-17) mg/dL Creatinine (0.52-1.04) mg/dL Glucose (74-99) mg/dL POC Glucose (mg/dL) (70-110) mg/dL Plasma Lactic Acid Omar 5.5 H* 4.8 H* (0.7-2.0) mmol/L AST (14-36) U/L ALT (4-34) U/L Alkaline Phosphatase (38-126) U/L Total Protein (6.3-8.2) g/dL Albumin (3.5-5.0) g/dL Microbiology - Last 24 Hours (Table) 09/22/24 13:11 Gram Stain - Preliminary Peritoneal Fluid Body Fluid Culture - Preliminary 09/21/24 20:41 Blood Culture - Preliminary Blood 09/21/24 18:43 Blood Culture - Preliminary Blood 09/21/24 22:00 Urine Culture - Preliminary Urine,Clean Catch Gram Neg Bacilli Assessment and Plan Assessment: Altered mental status suspect secondary to sepsis suspect secondary to urinary tract infection. Altered mental status with toxic metabolic encephalopathy. Urinary tract infection. Acute sepsis secondary to above requiring fluid resuscitation. Leukocytosis. Acute chronic kidney disease suspect secondary to hypotension. Coronary artery disease with previous stent placement. History of congestive heart failure. Degenerative joint disease. Gastroesophageal reflux disease. History of hypertension. End-stage renal disease on peritoneal dialysis. Hyperlipidemia. Plan: Plan dated September 23, 2024. The patient was initially seen in the emergency department, with hypotension, and acute mental status changes. Her encephalopathy may relate to sepsis. The patient's urine does have gram-negative bacilli. The patient continues on antibiotics. Labs, x-rays, medications are reviewed. The patient is on 4 L of oxygen. The patient is getting D5W IV with 3 ampoules of sodium bicarb and at 80 cc an hour. She is on meropenem. She is getting lactated Ringer's at 100 cc an hour. She is a DO NOT RESUSCITATE patient. Prognosis is poor. Time with Patient: Less than 30
--- NOTE | 2024-09-23 15:29 | P.PN ---
Subjective Progress Note Date: 09/23/24 Principal diagnosis: Reason for follow-up is leukocytosis/UTI/possible peritonitis Patient is a 79-year-old female with a past medical history coronary disease heart failure with reflux hypertension hyperlipidemia osteoarthritis end-stage renal disease on peritoneal dialysis patient has been brought to the hospital concerning for right lower quadrant abdominal pain CT abdominal pelvis did not show any acute abnormality concerning for possible UTI versus PD cath associated peritonitis. On today's evaluation that is 09/23/2024,the patient did have a low-grade fever of 99.2 F this morning per who was at the bedside at time of evaluation patient seem to be doing better today than yesterday she has been given some sedation to calm her down patient is currently on 4 L nasal cannula oxygen no vomiting or diarrhea has been reported. Patient white count is up to 24,000, creatinine is 4.84 lactic acid is also elevated as well as elevated liver enzymes urine is growing gram-negative Objective - Vital Signs Vital signs: Vital Signs Temp 97.9 F 09/23/24 03:30 Pulse 71 09/23/24 03:30 Resp 20 09/23/24 03:30 BP 92/60 09/23/24 03:30 Pulse Ox 95 09/23/24 03:30 FiO2 Intake & Output 09/22/24 09/23/24 09/23/24 18:59 06:59 18:59 Output Total 0 Balance 0 Weight 30.5 kg Output: Urine 0 Other: Voiding Method Diaper - Exam GENERAL DESCRIPTION: An elderly female lying in bed in no distress RESPIRATORY SYSTEM: Unlabored breathing , decreased breath sounds at bases HEART: S1 S2 regular rate and rhythm , ABDOMEN: Soft , no tenderness EXTREMITIES: No edema feet - Labs CBC & Chem 7: 09/23/24 08:53 09/23/24 08:53 Labs: Abnormal Lab Results - Last 24 Hours (Table) 09/22/24 09/22/24 09/23/24 Range/Units 11:19 15: 00:05 WBC (3.8-10.6) k/uL RBC (3.80-5.40) m/uL Hgb (11.4-16.0) gm/dL Hct (34.0-46.0) % MCV (80.0-100.0) fL RDW (11.5-15.5) % Neutrophils # (Manual) (1.3-7.7) k/uL Sodium (137-145) mmol/L Potassium (3.5-5.1) mmol/L BUN (7-17) mg/dL Creatinine (0.52-1.04) mg/dL Glucose (74-99) mg/dL POC Glucose (mg/dL) (70-110) mg/dL Plasma Lactic Acid Omar 4.6 H* 4.5 H* 5.8 H* (0.7-2.0) mmol/L AST (14-36) U/L ALT (4-34) U/L Alkaline Phosphatase (38-126) U/L Total Protein (6.3-8.2) g/dL Albumin (3.5-5.0) g/dL 09/23/24 09/23/24 09/23/24 Range/Units 04:01 06:14 08:53 WBC (3.8-10.6) k/uL RBC (3.80-5.40) m/uL Hgb (11.4-16.0) gm/dL Hct (34.0-46.0) % MCV (80.0-100.0) fL RDW (11.5-15.5) % Neutrophils # (Manual) (1.3-7.7) k/uL Sodium 132 L (137-145) mmol/L Potassium 2.5 L* (3.5-5.1) mmol/L BUN 27 H (7-17) mg/dL Creatinine 4.84 H (0.52-1.04) mg/dL Glucose 101 H (74-99) mg/dL POC Glucose (mg/dL) 131 H (70-110) mg/dL Plasma Lactic Acid Omar 8.6 H* (0.7-2.0) mmol/L AST 214 H (14-36) U/L ALT 61 H (4-34) U/L Alkaline Phosphatase 338 H (38-126) U/L Total Protein 4.3 L (6.3-8.2) g/dL Albumin 1.6 L (3.5-5.0) g/dL 09/23/24 09/23/24 Range/Units 08:53 09:19 WBC 24.0 H (3.8-10.6) k/uL RBC 2.84 L (3.80-5.40) m/uL Hgb 9.2 L (11.4-16.0) gm/dL Hct 28.5 L (34.0-46.0) % MCV 100.4 H (80.0-100.0) fL RDW 18.8 H (11.5-15.5) % Neutrophils # (Manual) 21.60 H (1.3-7.7) k/uL Sodium (137-145) mmol/L Potassium (3.5-5.1) mmol/L BUN (7-17) mg/dL Creatinine (0.52-1.04) mg/dL Glucose (74-99) mg/dL POC Glucose (mg/dL) (70-110) mg/dL Plasma Lactic Acid Omar 5.5 H* (0.7-2.0) mmol/L AST (14-36) U/L ALT (4-34) U/L Alkaline Phosphatase (38-126) U/L Total Protein (6.3-8.2) g/dL Albumin (3.5-5.0) g/dL Microbiology - Last 24 Hours (Table) 09/22/24 13:11 Gram Stain - Preliminary Peritoneal Fluid Body Fluid Culture - Preliminary 09/21/24 20:41 Blood Culture - Preliminary Blood 09/21/24 18:43 Blood Culture - Preliminary Blood 09/21/24 22:00 Urine Culture - Preliminary Urine,Clean Catch Gram Neg Bacilli Assessment and Plan (1) Sepsis Current Visit: Yes Status: Acute Code(s): A41.9 - SEPSIS, UNSPECIFIED ORGANISM SNOMED Code(s): 41057762 (2) UTI (urinary tract infection) Current Visit: Yes Status: Acute Code(s): N39.0 - URINARY TRACT INFECTION, SITE NOT SPECIFIED SNOMED Code(s): 99926647 (3) Allergy to multiple antibiotics Current Visit: No Status: Acute Code(s): Z88.1 - ALLERGY STATUS TO OTHER ANTIBIOTIC AGENTS SNOMED Code(s): 124445800 Plan: 1patient presented to hospital with abdominal pain to the right lower quadrant area in this patient who did have a history of end-stage disease on peritoneal dialysis with a question of PD catheter associated peritonitis versus UTI the patient still makes urine he did have significantly positive UA 2patient with multiple antibiotic ALLERGIES that would limit the number of antibiotic safe to use 3-patient did have worsening of the white count urine is currently growing gram- negative peritoneal fluid analysis and culture currently pending 4-patient will continue with empiric meropenem while waiting for the culture to finalize the bedside question answered Dictation was produced using [employer] dictation software. please excuse any grammatical, word or spelling errors. Time with Patient: Less than 30
--- NOTE | 2024-09-23 16:42 | CT ---
EXAMINATION TYPE: CT brain wo con DATE OF EXAM: 09/23/2024 4:17 PM COMPARISON: 10/23/2023. CLINICAL INDICATION: Female, 79 years old with history of ams, AMS TECHNIQUE: Brain: Axial CT images of the brain were obtained with coronal and sagittal reformats created and rev iewed. Contrast used: None. Oral contrast used: None. CT DLP: 1184.4 mGycm, Automated exposure control for dose reduction was used. FINDINGS: Brain: Extra-axial spaces: No abnormal extra-axial fluid collections. Ventricular system: Dilatation in proportion to cerebral atrophy. Cerebral parenchyma: Cerebral atrophy. No acute intraparenchymal hemorrhage or mass effect. The cadet -white junction is well differentiated. Scattered hypoattenuating areas are seen within the white mat ter. Cerebellum: Unremarkable. Mass effect: No evidence of midline shift. Intracranial vasculature: unremarkable Soft tissues: Normal. Calvarium/osseous structures: No depressed skull fracture. Paranasal sinuses and mastoid air cells: Mild scattered paranasal sinus disease. Visualized orbits: Bilateral aphakia IMPRESSION: 1. No acute intracranial process. 2. Nonspecific white matter changes, likely secondary to chronic small vessel ischemic disease. [facility], , 09/23/2024 4:39 PM
--- NOTE | 2024-09-23 22:08 | EEG ---
ELECTROENCEPHALOGRAM REPORT CLINICAL HISTORY: This is an 79-year-old woman with altered mental status. The video EEG is obtained to evaluate for seizure and epileptiform activity. RELEVANT MEDICATIONS: 1. Prozac. 2. Morphine p.r.n. 3. Ropinirole. EEG TYPE: This is a routine 21-channel EEG with video using the 10/20 electrode placement system. DESCRIPTION: Wakefulness is only obtained. Background was hard to assess because of the significant diffuse myogenic artifact, but the background appears 5 to 6 hertz activity. There was no physiological stage 2 sleep architecture. With the limitation, there is no focal slowing appreciated. As stated earlier, there is diffuse significant myogenic artifact. The patient was moving her head [id number] and per the industrial machine system technician she was crying out and well relaxed and stopped moving. Interictal and ictal, with the limitation, there is no appreciable discharges or seizure. ACTIVATION PROCEDURE: Photic stimulation and hyperventilation are not performed. CLINICAL INTERPRETATION: This is an abnormal routine EEG. This is limited because of diffuse significant myogenic artifact. With limitation, the background has moderate encephalopathy. There is no focal slowing, epileptiform discharge, or seizure on the EEG. Clinical correlation is recommended. MMODL / IJN: [id number] /
[2024-09-24 10:03] LABS: Anisocytosis Slight; HGB 8.8 gm/dL (11.4-16.0); Hypochromasia Moderate; MCH 33.8 pg (25.0-35.0); MCHC 32.6 g/dL (31.0-37.0); MCV 103.5 fL (80.0-100.0); Macrocytosis Moderate; Mean Platelet Volume 7.9; Platelet Count 243 k/uL (150-450); RBC 2.61 m/uL (3.80-5.40); WBC 17.4 k/uL (3.8-10.6)
[2024-09-24 10:19] LABS: ALT 62 U/L (4-34); African American GFR (CKD) 12 (>60 ml/min/1.73 sqM); Albumin 1.5 g/dL (3.5-5.0); Anion Gap 1 mmol/L; Blood Urea Nitrogen 24 mg/dL (7-17); Carbon Dioxide 33 mmol/L (22-30); Chloride 99 mmol/L (98-107); Glucose 95 mg/dL (74-99); Non-African American GFR(CKD) 10 (>60 ml/min/1.73 sqM); Sodium 133 mmol/L (137-145); Total Bilirubin 0.8 mg/dL (0.2-1.3); Total Protein 4.2 g/dL (6.3-8.2)
[2024-09-24 10:26] LABS: Potassium 3.2 mmol/L (3.5-5.1)
[2024-09-24 10:27] LABS: AST 170 U/L (14-36); Alkaline Phosphatase 315 U/L (38-126); Magnesium 1.6 mg/dL (1.6-2.3)
--- NOTE | 2024-09-24 12:43 | P.PN ---
Subjective Progress Note Date: 09/24/24 Hospital course Patient is a 79-year-old female with a past medical history of end-stage renal disease on peritoneal dialysis, chronic systolic heart failure, hypertension, hyperlipidemia, coronary artery disease status post stent placement who presents to the ED with weakness and pain. Patient is a poor historian. I obtained history from daughter who is at bedside and is a pathologist. Per daughter 2 weeks ago patient had a fall and since then has been declining. Daughter states that patient has been eating and drinking less is not able to swallow her potassium pills. Patient has also been getting more confused. Patient prior to the fall was able to complete all her daily activities. Per daughter as baseline patient can walk around with minimal assistance with just holding the hand of her . She only requires some assistance with putting on her clothes. Now patient can barely stand up and requires two-person assistance. When I asked the patient where she has pain she touched her right lower abdomen. In the ED WBC 12.7, potassium 2.5, lactic acid 4.0, albumin 1.9, UA showed large leukocyte esterase and [address] abdomen pelvis showed nodular contour to the liver suggestive of hepatic cirrhosis with ascites. Patient also found to have left superior and inferior pubic rami fractures with mild displacement. Patient was referred to the medicine service for admission. Nephrology was consulted for peritoneal dialysis. Infectious disease was consulted due to history of multiple allergies as well as drug-resistant bacteria. Neurology was consulted due to worsening mental status. Patient's lactic acid was increasing so pulmonology was consulted for septic shock. Pulmonology recommended to resuscitate the patient. Subjective Patient seen this morning. Her mental status is better today compared to yesterday. She is following simple commands. She is able to tell me her name as well. 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 Psych -moderately confused and still delirious Assessment and plan Acute toxic metabolic encephalopathy Urinary tract infection with lower abdominal pain Septic shock with elevated lactic acid, tachycardia and leukocytosis. I reviewed urine culture that is growing klebsiella ornithinolgtica I reviewed reviewed blood cultures that are negative to date I reviewed cultures from peritoneal fluid that is negative to date. Cell count from peritoneal fluid is still pending Continue with meropenem renally dosed at 1 g every 24 hours. Continue with pharmacy to dose vancomycin. Infectious disease on board Lactic acid improved to 3.7. Will stop trending lactic acid Continue lactated Ringer's 100 cc an hour Patient had EEG done that showed no epileptiform activity but showed findings consistent with moderate encephalopathy. CT head showed no acute process IV morphine 2 mg every 3 hours as needed for pain. Patient received a total of 6 mg of morphine in the past 24 hours. Severe hypokalemia on admission This morning potassium is 3.2. I have ordered for 20 mill equivalents of IV potassium chloride Severe malnutrition Patient's albumin is 1.6. Currently patient is not able to tolerate any p.o. intake and failed swallow eval Since mental status is better today will have speech therapy reevaluate the patient. If patient fails speech therapy again we will then insert NG tube and start the patient on tube feeds. I discussed with the daughter at bedside who is amenable to this plan. Also discussed with the daughter that we may have to put the patient on restraints if we place an NG tube. Acute blood loss anemia I suspect this is dilutional. There is no overt signs of bleeding. Patient's hemoglobin this morning is 8.8. Continue to monitor CBC Hypovolemic hyponatremia Dehydration Resolved Generalized weakness PT OT consult ESRD on PD Metabolic acidosis Nephrology consult to manage dialysis Metabolic acidosis has resolved. Patient now off bicarb drip Liver cirrhosis seen on CT scan Outpatient workup with gastroenterology. At this time patient does not show any signs of decompensated liver cirrhosis. Hypertension Blood pressure is on the low side so we will hold off on BP meds Coronary artery disease Status post cardiac stent Continue with aspirin 81 mg p.o. daily, atorvastatin 40 mg p.o. daily Hold off on metoprolol due to low blood pressure. Chronic systolic heart failure Patient currently appears hypovolemic Will hold off on diuretics and beta-velasquez for now due to low blood pressure Mild nondisplaced pelvic fractures Patient was here in the ED 2 weeks ago and was evaluated by orthopedic surgery who said no surgical intervention. Anxiety and depression Continue with Prozac 40 mg p.o. daily, Requip 0.25 mg p.o. at bedtime DVT prophylaxis: Hold subcu heparin due to acute blood loss anemia CODE STATUS: DNR/DNI Objective - Vital Signs Vital signs: Vital Signs Temp 98.4 F 09/24/24 08:00 Pulse 90 09/24/24 08:00 Resp 18 09/24/24 08:00 BP 83/58 09/24/24 08:00 Pulse Ox 96 09/24/24 08:00 FiO2 Intake & Output 09/23/24 09/24/24 09/24/24 18:59 06:59 18:59 Weight 30.5 kg 31 kg Other: Voiding Method Diaper Diaper Diaper - Labs CBC & Chem 7: 09/24/24 09:41 09/24/24 09:41 Labs: Abnormal Lab Results - Last 24 Hours (Table) 09/23/24 09/24/24 09/24/24 Range/Units 15:42 09:41 09:41 WBC 17.4 H (3.8-10.6) k/uL RBC 2.61 L (3.80-5.40) m/uL Hgb 8.8 L (11.4-16.0) gm/dL Hct 27.0 L (34.0-46.0) % MCV 103.5 H (80.0-100.0) fL RDW 18.0 H (11.5-15.5) % Sodium 133 L (137-145) mmol/L Potassium 3.2 L (3.5-5.1) mmol/L Carbon Dioxide 33 H (22-30) mmol/L BUN 24 H (7-17) mg/dL Creatinine 3.90 H (0.52-1.04) mg/dL Plasma Lactic Acid Omar 3.7 H* (0.7-2.0) mmol/L Calcium 8.0 L (8.4-10.2) mg/dL AST 170 H (14-36) U/L ALT 62 H (4-34) U/L Alkaline Phosphatase 315 H (38-126) U/L Total Protein 4.2 L (6.3-8.2) g/dL Albumin 1.5 L (3.5-5.0) g/dL Microbiology - Last 24 Hours (Table) 09/22/24 13:11 Gram Stain - Preliminary Peritoneal Fluid Body Fluid Culture - Preliminary 09/21/24 20:41 Blood Culture - Preliminary Blood 09/21/24 18:43 Blood Culture - Preliminary Blood 09/21/24 22:00 Urine Culture - Final Urine,Clean Catch Klebsiella ornithinolytica
--- NOTE | 2024-09-24 13:48 | FL ---
EXAMINATION TYPE: FL barium swallow w video DATE OF EXAM: 09/24/2024 COMPARISON: NONE HISTORY: Abnormal bedside examination increasing nodule cannot food and pills TECHNIQUE: Fluoroscopy. FINDINGS: Fluoroscopic guidance was provided for the procedure performed in conjunction with the [facility] pathology department. Please see complete report forthcoming from the Speech Pathology departmen t. Various consistencies from nectar thick to pudding thick were administered. Fluoroscopy time 2 minutes 18 seconds. Number of images: 0. DAP:114.35 Aspiration was present with honey and nectar thick Mild pooling is within the vallecula. There is marked delay in initiation. Pharyngeal residuals was evident. IMPRESSION: 1. Aspiration with nectar thick and honey thick consistencies [facility], , 09/24/2024 1:46 PM
--- NOTE | 2024-09-24 14:24 | P.PN ---
Subjective Progress Note Date: 09/24/24 Principal diagnosis: Urosepsis. This is an 79-year-old female patient with a known history of degenerative joint disease, myocardial infarction, coronary artery disease with previous stent placement, congestive heart failure, gastroesophageal reflux disease, hypertension, end-stage renal disease peritoneal dialysis, hyperlipidemia who presented here to the emergency room yesterday with complaints of abdominal pain altered mental status. Count 16.1. Hemoglobin 10.0. Platelets 329. Sodium 133. Potassium 3.5. Bicarb 14. BUN 31. Creatinine 6.01. Glucose 123. Lactic acid 5.6, 4.6. AST 109. ALT 36. Alk phos 464. Lipase 121. Urinalysis turbid with many bacteria. CT scan of the abdomen and pelvis revealed no acute abdominal process. Some nodular contour of the liver suggestive of hepatic cirrhosis with ascites. Peritoneal dialysis catheter within the right abdomen. Small left pleural effusion. Colonic diverticulosis. Left superior and inferior pubic rami fractures with mild displacement. She is seen today in consultation in the emergency department. She is being considered for ICU placement. She is altered. Obtunded. Poor historian. Unclear of her baseline status. She is currently afebrile. Hemodynamically stable. On 2 L nasal cannula with O2 saturations up to 98%. Received 1 L of fluid resuscitation. Currently on lactated Ringer's at 100 mL/h. She has been initiated on meropenem. She has been initiated on D5W with 3 A of bicarb at 80 mL/h. Heparin for DVT prophylaxis. Blood and urine culture pending. Peritoneal fluid cultures pending. Progress note dated September 23, 2024. 79-year-old female that we saw in the emergency department yesterday, for hypotension, and sepsis. The patient appears to have a urinary tract infection. She is a DO NOT RESUSCITATE patient. She is seen today in room 367. She continues on oxygen, 4 L by nasal cannula. The patient is a chemical code only, no CPR, and the patient is not to be intubated. She is getting lactated Ringer's at 100 cc an hour, meropenem, and D5W with 3 ampoules of sodium bicarb and then 80 cc an hour. Her urine reveals evidence of gram-negative bacilli. White count is 24, hemoglobin 9.2, hematocrit 28.5, platelet count 264,000. Sodium 132, potassium 2.5, chlorides 99, CO2 25, BUN 27, creatinine 4.84. Her most recent lactic acid is 4.8. AST is 214. ALT is 61. Ammonia levels 10. Albumin is 1.6. Progress note dated September 24, 2024. 79-year-old female seen today in room 367. The patient's daughter is in the room. 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 The patient's urine analysis, showed evidence of Klebsiella. She continues on meropenem. She is on 2 L of oxygen. She is receiving lactated Ringer's at 100 cc an hour. The patient is much more alert and awake today. She is a DO NOT RESUSCITATE patient. Current labs include a white count 17.4, hemoglobin 8.8, hematocrit 27, and a platelet count of 3-43,000. Sodium 133, potassium 3.2, chloride 99, CO2 33, BUN is 24, creatinine is 3.90. Albumin is 1.5. TSH is normal. Objective - Vital Signs Vital signs: Vital Signs Temp 98.4 F 09/24/24 08:00 Pulse 70 09/24/24 12:00 Resp 18 09/24/24 12:00 BP 100/70 09/24/24 12:00 Pulse Ox 100 09/24/24 12:00 FiO2 Intake & Output 09/23/24 09/24/24 09/24/24 18:59 06:59 18:59 Weight 30.5 kg 31 kg 31 kg Other: Voiding Method Diaper Diaper Diaper - Exam The patient is more awake and alert. The patient is able to speak in full sentences. The patient continues on oxygen at 2 L. HEENT examination is grossly unremarkable. Neck supple. Full range of motion. No adenopathy thyromegaly or neck vein distention. Cardiovascular examination reveals regular rhythm rate. S1-S2 normal. No S3 or S4. No discernible murmur noted. Lungs reveal scattered rhonchi. No wheezes or crackles. 2 L saturation is adequate. Abdomen soft bowel sounds are heard. No masses or tenderness. Extremities are intact. No cyanosis clubbing or edema. Skin is without rash or lesion. Neurologic examination is brief but nonfocal. - Labs CBC & Chem 7: 09/24/24 09:41 09/24/24 09:41 Labs: Abnormal Lab Results - Last 24 Hours (Table) 09/23/24 09/24/24 09/24/24 Range/Units 15:42 09:41 09:41 WBC 17.4 H (3.8-10.6) k/uL RBC 2.61 L (3.80-5.40) m/uL Hgb 8.8 L (11.4-16.0) gm/dL Hct 27.0 L (34.0-46.0) % MCV 103.5 H (80.0-100.0) fL RDW 18.0 H (11.5-15.5) % Sodium 133 L (137-145) mmol/L Potassium 3.2 L (3.5-5.1) mmol/L Carbon Dioxide 33 H (22-30) mmol/L BUN 24 H (7-17) mg/dL Creatinine 3.90 H (0.52-1.04) mg/dL Plasma Lactic Acid Omar 3.7 H* (0.7-2.0) mmol/L Calcium 8.0 L (8.4-10.2) mg/dL AST 170 H (14-36) U/L ALT 62 H (4-34) U/L Alkaline Phosphatase 315 H (38-126) U/L Total Protein 4.2 L (6.3-8.2) g/dL Albumin 1.5 L (3.5-5.0) g/dL Microbiology - Last 24 Hours (Table) 09/22/24 13:11 Gram Stain - Preliminary Peritoneal Fluid Body Fluid Culture - Preliminary 09/21/24 20:41 Blood Culture - Preliminary Blood 09/21/24 18:43 Blood Culture - Preliminary Blood 09/21/24 22:00 Urine Culture - Final Urine,Clean Catch Klebsiella ornithinolytica Assessment and Plan Assessment: Altered mental status suspect secondary to sepsis suspect secondary to Klebsiella urinary tract infection. Altered mental status with toxic metabolic encephalopathy. Urinary tract infection, secondary to Klebsiella species. Acute sepsis secondary to above requiring fluid resuscitation. Leukocytosis. Acute chronic kidney disease suspect secondary to hypotension. Coronary artery disease with previous stent placement. History of congestive heart failure. Degenerative joint disease. Gastroesophageal reflux disease. History of hypertension. End-stage renal disease on peritoneal dialysis. Hyperlipidemia. Plan: Plan dated September 23, 2024. The patient was initially seen in the emergency department, with hypotension, and acute mental status changes. Her encephalopathy may relate to sepsis. The patient's urine does have gram-negative bacilli. The patient continues on antibiotics. Labs, x-rays, medications are reviewed. The patient is on 4 L of oxygen. The patient is getting D5W IV with 3 ampoules of sodium bicarb and at 80 cc an hour. She is on meropenem. She is getting lactated Ringer's at 100 cc an hour. She is a DO NOT RESUSCITATE patient. Prognosis is poor. Plan dated September 24, 2024. The patient is much more awake and alert. Her daughter is at the bedside. The patient continues on meropenem for her Klebsiella urinary tract infection, and urosepsis, with septic encephalopathy. Labs, x-rays, and medications are r eviewed. We will continue to follow the patient, make recommendations. Prognosis is guarded. Time with Patient: Less than 30
--- NOTE | 2024-09-24 14:51 | P.PN ---
Subjective Progress Note Date: 09/24/24 Principal diagnosis: Reason for follow-up is leukocytosis/UTI/possible peritonitis Patient is a 79-year-old female with a past medical history coronary disease heart failure with reflux hypertension hyperlipidemia osteoarthritis end-stage renal disease on peritoneal dialysis patient has been brought to the hospital concerning for right lower quadrant abdominal pain CT abdominal pelvis did not show any acute abnormality concerning for possible UTI versus PD cath associated peritonitis. On today's evaluation that is 09/24/2024, the patient continues to be afebrile, the patient is on 2 L nasal cannula oxygen and breathing comfortably, the Pt is awake but did not answer any question no vomiting or diarrhea has been reported no family member at the bedside. Patient white count is down to 17.4 creatinine 3.90 urine is growing Klebsiella peritoneal fluid cultures currently pending Objective - Vital Signs Vital signs: Vital Signs Temp 98.4 F 09/24/24 08:00 Pulse 90 09/24/24 08:00 Resp 18 09/24/24 08:00 BP 83/58 09/24/24 08:00 Pulse Ox 96 09/24/24 08:00 FiO2 Intake & Output 09/23/24 09/24/24 09/24/24 18:59 06:59 18:59 Weight 30.5 kg 31 kg Other: Voiding Method Diaper Diaper Diaper - Exam GENERAL DESCRIPTION: An elderly female lying in bed in no distress RESPIRATORY SYSTEM: Unlabored breathing , decreased breath sounds at bases HEART: S1 S2 regular rate and rhythm , ABDOMEN: Soft , no tenderness EXTREMITIES: No edema feet - Labs CBC & Chem 7: 09/24/24 09:41 09/24/24 09:41 Labs: Abnormal Lab Results - Last 24 Hours (Table) 09/23/24 09/23/24 09/24/24 Range/Units 12:10 15:42 09:41 WBC 17.4 H (3.8-10.6) k/uL RBC 2.61 L (3.80-5.40) m/uL Hgb 8.8 L (11.4-16.0) gm/dL Hct 27.0 L (34.0-46.0) % MCV 103.5 H (80.0-100.0) fL RDW 18.0 H (11.5-15.5) % Sodium (137-145) mmol/L Potassium (3.5-5.1) mmol/L Carbon Dioxide (22-30) mmol/L BUN (7-17) mg/dL Creatinine (0.52-1.04) mg/dL Plasma Lactic Acid Omar 4.8 H* 3.7 H* (0.7-2.0) mmol/L Calcium (8.4-10.2) mg/dL AST (14-36) U/L ALT (4-34) U/L Alkaline Phosphatase (38-126) U/L Total Protein (6.3-8.2) g/dL Albumin (3.5-5.0) g/dL 09/24/24 Range/Units 09:41 WBC (3.8-10.6) k/uL RBC (3.80-5.40) m/uL Hgb (11.4-16.0) gm/dL Hct (34.0-46.0) % MCV (80.0-100.0) fL RDW (11.5-15.5) % Sodium 133 L (137-145) mmol/L Potassium 3.2 L (3.5-5.1) mmol/L Carbon Dioxide 33 H (22-30) mmol/L BUN 24 H (7-17) mg/dL Creatinine 3.90 H (0.52-1.04) mg/dL Plasma Lactic Acid Omar (0.7-2.0) mmol/L Calcium 8.0 L (8.4-10.2) mg/dL AST 170 H (14-36) U/L ALT 62 H (4-34) U/L Alkaline Phosphatase 315 H (38-126) U/L Total Protein 4.2 L (6.3-8.2) g/dL Albumin 1.5 L (3.5-5.0) g/dL Microbiology - Last 24 Hours (Table) 09/22/24 13:11 Gram Stain - Preliminary Peritoneal Fluid Body Fluid Culture - Preliminary 09/21/24 20:41 Blood Culture - Preliminary Blood 09/21/24 18:43 Blood Culture - Preliminary Blood 09/21/24 22:00 Urine Culture - Final Urine,Clean Catch Klebsiella ornithinolytica Assessment and Plan (1) Sepsis Current Visit: Yes Status: Acute Code(s): A41.9 - SEPSIS, UNSPECIFIED ORGANISM SNOMED Code(s): 22995986 (2) UTI (urinary tract infection) Current Visit: Yes Status: Acute Code(s): N39.0 - URINARY TRACT INFECTION, SITE NOT SPECIFIED SNOMED Code(s): 49324852 (3) Allergy to multiple antibiotics Current Visit: No Status: Acute Code(s): Z88.1 - ALLERGY STATUS TO OTHER ANTIBIOTIC AGENTS SNOMED Code(s): 828096996 Plan: 1patient presented to hospital with abdominal pain to the right lower quadrant area in this patient who did have a history of end-stage disease on peritoneal dialysis with a question of PD catheter associated peritonitis versus UTI the patient still makes urine he did have significantly positive UA 2patient with multiple antibiotic ALLERGIES that would limit the number of antibiotic safe to use 3-patient did have improvement in her white count which is down to 17,000, urine is growing Klebsiella that is likely ESBL however the patient did have cephalexin allergy will be continued on meropenem await peritoneal fluid culture to finalize Dictation was produced using [employer] dictation software. please excuse any grammatical, word or spelling errors. Time with Patient: Less than 30
[2024-09-24] MEDS: POTASSIUM CHLORIDE 20 MEQ in WATER FOR INJECTION 1 100ML.BAG IVPB ONE (15:12)
--- NOTE | 2024-09-24 15:45 | XR ---
EXAMINATION TYPE: XR chest 1V portable DATE OF EXAM: 09/24/2024 3:29 PM COMPARISON: 09/22/2024 CLINICAL INDICATION: Female, 79 years old with history of NG tube placement, TECHNIQUE: XR chest 1V portable view(s) obtained. FINDINGS: The heart size is normal. The pulmonary vasculature is normal. Patchy infiltrate is present in the left lung and at the right lung base. Nasogastric tube is present. A directed into the right bronchus. This should be withdrawn and replace d IMPRESSION: 1. Nasogastric tube may be directed into the right bronchus. Report was called to the nurse, the naso gastric tube was already pulled. 2. Scattered infiltrates through the left lung and right lower lobe. [facility], , 09/24/2024 3:42 PM
--- NOTE | 2024-09-24 16:23 | P.PN ---
Subjective patient is seen for follow-up for end-stage renal disease. Overall improved from admission. Communicating more today Family is present at bedside. Having a PD exchange currently. No diarrhea or vomiting. Maintained on Ringer lactate Serum potassium was 3.2 this morning. Objective - Vital Signs Vital signs: Vital Signs Temp 98.4 F 09/24/24 08:00 Pulse 98 09/24/24 16:00 Resp 18 09/24/24 16:00 BP 84/52 09/24/24 16:00 Pulse Ox 99 09/24/24 16:00 FiO2 Intake & Output 09/23/24 09/24/24 09/24/24 18:59 06:59 18:59 Weight 30.5 kg 31 kg 31 kg Other: Voiding Method Diaper Diaper Diaper - Exam patient is comfortable. nods to questions. Examination of the heart S1 and S2 Examination of the lungs bilateral breath sounds are heard Abdomen is soft nontender Examination of lower extremity shows no significant edema Moving all 4 extremities. - Labs CBC & Chem 7: 09/24/24 09:41 09/24/24 09:41 Labs: Abnormal Lab Results - Last 24 Hours (Table) 09/23/24 09/24/24 09/24/24 Range/Units 15:42 09:41 09:41 WBC 17.4 H (3.8-10.6) k/uL RBC 2.61 L (3.80-5.40) m/uL Hgb 8.8 L (11.4-16.0) gm/dL Hct 27.0 L (34.0-46.0) % MCV 103.5 H (80.0-100.0) fL RDW 18.0 H (11.5-15.5) % Sodium 133 L (137-145) mmol/L Potassium 3.2 L (3.5-5.1) mmol/L Carbon Dioxide 33 H (22-30) mmol/L BUN 24 H (7-17) mg/dL Creatinine 3.90 H (0.52-1.04) mg/dL Plasma Lactic Acid Omar 3.7 H* (0.7-2.0) mmol/L Calcium 8.0 L (8.4-10.2) mg/dL AST 170 H (14-36) U/L ALT 62 H (4-34) U/L Alkaline Phosphatase 315 H (38-126) U/L Total Protein 4.2 L (6.3-8.2) g/dL Albumin 1.5 L (3.5-5.0) g/dL Microbiology - Last 24 Hours (Table) 09/22/24 13:11 Gram Stain - Preliminary Peritoneal Fluid Body Fluid Culture - Preliminary 09/21/24 20:41 Blood Culture - Preliminary Blood 09/21/24 18:43 Blood Culture - Preliminary Blood 09/21/24 22:00 Urine Culture - Final Urine,Clean Catch Klebsiella ornithinolytica Assessment and Plan Assessment: 1. End-stage renal disease on peritoneal dialysis 2. Abdominal pain most likely related to UTI. I do not see the PD fluid count back yet. 3. Metabolic acidosis associated with end-stage renal disease as well as lactic acidosis and underlying infection 4. CK D mineral bone disorder 5. Sepsis from UTI 6. Hypokalemia from decreased intake and PD Plan: Continue IV fluids Follow-up on PD fluid cell count Continue antibiotics Discussed possible need for tube feedings as patient continues to have poor oral intake.
--- NOTE | 2024-09-24 17:04 | P.PN ---
Subjective Progress Note Date: 09/24/24 I am following up with the patient and patient is accompanied with her . states that today she is doing much better compared to the past couple days is in which she is less confused. Objective - Vital Signs Vital signs: Vital Signs Temp 98.4 F 09/24/24 08:00 Pulse 98 09/24/24 16:00 Resp 18 09/24/24 16:00 BP 84/52 09/24/24 16:00 Pulse Ox 99 09/24/24 16:00 FiO2 Intake & Output 09/23/24 09/24/24 09/24/24 18:59 06:59 18:59 Weight 30.5 kg 31 kg 31 kg Other: Voiding Method Diaper Diaper Diaper - Exam General: Lying in bed and does not appear in acute distress. Neuro: Patient is drowsy but is awake able. She seems more awake both today compared to yesterday. She is actually more responsive today compared to yesterday. She is oriented to self and what options she stated she is not at home but she is in the hospital. She is able to name objects correctly such as pen glasses. She was able to name her 's name correctly. She is following simple commands. Patient is tracking well. No facial weakness. Dysarthria. Her lips seems dry. Neuro the strength is somewhat limited because of her cooperation but was able to spontaneously lift up uppers above gravity Some of the workup during this hospital visit consisted of: Patient initial sodium on presentation was 128 and currently is 132 AST is trending up at 214 ALT is also trended up currently 61 Creatinine is trending down Ammonia level is 10 Potassium is 2.5 Albumin level is 1.7 Vitamin B12 is 892 Serum folate 27.2 TSH is 3.180 Cultures positive for gram-negative bacilli. CT of the head is reported as no acute intracranial process. Routine EEG is abnormal. The exam is limited because of diffuse significant myogenic artifact. With limitation the background is moderate encephalopathy. There is no focal slowing, OptiForm discharges or seizure on the EEG - Labs CBC & Chem 7: 09/24/24 09:41 09/24/24 09:41 Labs: Abnormal Lab Results - Last 24 Hours (Table) 09/24/24 09/24/24 Range/Units 09:41 09:41 WBC 17.4 H (3.8-10.6) k/uL RBC 2.61 L (3.80-5.40) m/uL Hgb 8.8 L (11.4-16.0) gm/dL Hct 27.0 L (34.0-46.0) % MCV 103.5 H (80.0-100.0) fL RDW 18.0 H (11.5-15.5) % Sodium 133 L (137-145) mmol/L Potassium 3.2 L (3.5-5.1) mmol/L Carbon Dioxide 33 H (22-30) mmol/L BUN 24 H (7-17) mg/dL Creatinine 3.90 H (0.52-1.04) mg/dL Calcium 8.0 L (8.4-10.2) mg/dL AST 170 H (14-36) U/L ALT 62 H (4-34) U/L Alkaline Phosphatase 315 H (38-126) U/L Total Protein 4.2 L (6.3-8.2) g/dL Albumin 1.5 L (3.5-5.0) g/dL Microbiology - Last 24 Hours (Table) 09/22/24 13:11 Gram Stain - Preliminary Peritoneal Fluid Body Fluid Culture - Preliminary 09/21/24 20:41 Blood Culture - Preliminary Blood 09/21/24 18:43 Blood Culture - Preliminary Blood 09/21/24 22:00 Urine Culture - Final Urine,Clean Catch Klebsiella ornithinolytica Assessment and Plan Assessment: This is an 79 y/o woman who presents the emergency department on 09/21/2024 for weakness and pain. Seems the patient had a fall about 2 weeks ago and since then has been declining. She has been having decreased and oral intake and she is severely malnourished. She is severely confused. She has hyponatremia, elevated liver function test as well as acute urinary tract infection Altered mental status seems due to multifactorial metabolic encephalopathy as well as component due to acute urinary tract---today mentation is improving. CT of the head is unremarkable for any acute process. Routine EEG is negative for any seizure discharges. Acute urinary tract Hyponatremia trending up Hypokalemia Malnutrition Transaminitis--trending down Underlying history of end-stage renal disease on peritoneal dialysis Chronic start heart failure Underlying history of hypertension Hyperlipidemia History of coronary artery disease status post stent Plan: Infection diseases on board Nephrology is on board Pulmonary team is on board Will defer the rest of the medical management to primary and other specialist next Plan discussed with the primary team and her who is at bedside. There is no further neurological workup. Will sign off. Please reconsult if needed. Time with Patient: Less than 30
[2024-09-25 07:54] LABS: Anisocytosis Slight; Basophils % (A) 0 %; Eosinophils # (A) 0.2 k/uL (0-0.7); Eosinophils % (A) 1 %; HCT 25.5 % (34.0-46.0); HGB 8.4 gm/dL (11.4-16.0); Hypochromasia Moderate; Lymphocytes % (A) 6 %; MCH 34.1 pg (25.0-35.0); MCHC 32.8 g/dL (31.0-37.0); MCV 104.2 fL (80.0-100.0); Macrocytosis Moderate; Mean Platelet Volume 7.9; Monocytes # (A) 0.8 k/uL (0-1.0); Monocytes % (A) 5 %; Neutrophils # (A) 13.9 k/uL (1.3-7.7); Neutrophils % (A) 87 %; Platelet Count 182 k/uL (150-450); RBC 2.45 m/uL (3.80-5.40); RDW 17.7 % (11.5-15.5)
[2024-09-25 08:10] LABS: African American GFR (CKD) 13 (>60 ml/min/1.73 sqM); Anion Gap 1 mmol/L; Blood Urea Nitrogen 22 mg/dL (7-17); Calcium 7.8 mg/dL (8.4-10.2); Carbon Dioxide 32 mmol/L (22-30); Chloride 98 mmol/L (98-107); Glucose 96 mg/dL (74-99); Non-African American GFR(CKD) 11 (>60 ml/min/1.73 sqM); Phosphorus 2.5 mg/dL (2.5-4.5); Potassium 2.8 mmol/L (3.5-5.1); Sodium 131 mmol/L (137-145)
--- NOTE | 2024-09-25 08:38 | P.PN ---
Subjective Progress Note Date: 09/25/24 Principal diagnosis: Urosepsis. This is an 79-year-old female patient with a known history of degenerative joint disease, myocardial infarction, coronary artery disease with previous stent placement, congestive heart failure, gastroesophageal reflux disease, hypertension, end-stage renal disease peritoneal dialysis, hyperlipidemia who presented here to the emergency room yesterday with complaints of abdominal pain altered mental status. Count 16.1. Hemoglobin 10.0. Platelets 329. Sodium 133. Potassium 3.5. Bicarb 14. BUN 31. Creatinine 6.01. Glucose 123. Lactic acid 5.6, 4.6. AST 109. ALT 36. Alk phos 464. Lipase 121. Urinalysis turbid with many bacteria. CT scan of the abdomen and pelvis revealed no acute abdominal process. Some nodular contour of the liver suggestive of hepatic cirrhosis with ascites. Peritoneal dialysis catheter within the right abdomen. Small left pleural effusion. Colonic diverticulosis. Left superior and inferior pubic rami fractures with mild displacement. She is seen today in consultation in the emergency department. She is being considered for ICU placement. She is altered. Obtunded. Poor historian. Unclear of her baseline status. She is currently afebrile. Hemodynamically stable. On 2 L nasal cannula with O2 saturations up to 98%. Received 1 L of fluid resuscitation. Currently on lactated Ringer's at 100 mL/h. She has been initiated on meropenem. She has been initiated on D5W with 3 A of bicarb at 80 mL/h. Heparin for DVT prophylaxis. Blood and urine culture pending. Peritoneal fluid cultures pending. Progress note dated September 23, 2024. 79-year-old female that we saw in the emergency department yesterday, for hypotension, and sepsis. The patient appears to have a urinary tract infection. She is a DO NOT RESUSCITATE patient. She is seen today in room 367. She continues on oxygen, 4 L by nasal cannula. The patient is a chemical code only, no CPR, and the patient is not to be intubated. She is getting lactated Ringer's at 100 cc an hour, meropenem, and D5W with 3 ampoules of sodium bicarb and then 80 cc an hour. Her urine reveals evidence of gram-negative bacilli. White count is 24, hemoglobin 9.2, hematocrit 28.5, platelet count 264,000. Sodium 132, potassium 2.5, chlorides 99, CO2 25, BUN 27, creatinine 4.84. Her most recent lactic acid is 4.8. AST is 214. ALT is 61. Ammonia levels 10. Albumin is 1.6. Progress note dated September 24, 2024. 79-year-old female seen today in room 367. The patient's daughter is in the room. 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 The patient's urine analysis, showed evidence of Klebsiella. She continues on meropenem. She is on 2 L of oxygen. She is receiving lactated Ringer's at 100 cc an hour. The patient is much more alert and awake today. She is a DO NOT RESUSCITATE patient. Current labs include a white count 17.4, hemoglobin 8.8, hematocrit 27, and a platelet count of 3-43,000. Sodium 133, potassium 3.2, chloride 99, CO2 33, BUN is 24, creatinine is 3.90. Albumin is 1.5. TSH is normal. Progress note dated September 25, 2024. 79-year-old female seen today in room 367. She was initially seen in the emerg ency department. She was admitted with a diagnosis of sepsis, likely from a urinary source. The patient is doing better. She is much more awake and alert. She is on 2 L of oxygen. She is getting lactated Ringer's at 100 cc an hour. White count of 16, hemoglobin 8.4, hematocrit 25.5, and platelet count 182,000. Sodium 131, potassium 2.8, chlorides 98, CO2 32, BUN 22, and creatinine 3.57. The patient's calcium is 7.8. Phosphorus is 2.5. Urine culture was positive for Klebsiella. Chest x-ray from yesterday shows scattered infiltrates to the left lung and right lower lobe. Objective - Vital Signs Vital signs: Vital Signs Temp 98.8 F 09/25/24 04:36 Pulse 60 09/25/24 04:36 Resp 16 09/25/24 04:36 BP 98/62 09/25/24 05:08 Pulse Ox 94 L 09/25/24 04:36 FiO2 Intake & Output 09/24/24 09/25/24 09/25/24 18:59 06:59 18:59 Intake Total 1200 Balance 1200 Weight 31 kg Intake: Intake, IV Titration 1200 Amount Lactated Ringers 1,000 ml 1200 @ 100 mls/hr IV .Q10H [facility] Rx#:[id number] Other: Voiding Method Diaper Diaper - Exam The patient is more awake and alert. The patient is able to speak in full sentences. The patient continues on oxygen at 2 L. HEENT examination is grossly unremarkable. Neck supple. Full range of motion. No adenopathy thyromegaly or neck vein distention. Cardiovascular examination reveals regular rhythm rate. S1-S2 normal. No S3 or S4. No discernible murmur noted. Lungs reveal scattered rhonchi. No wheezes or crackles. 2 L saturation is a dequate. Abdomen soft bowel sounds are heard. No masses or tenderness. Extremities are intact. No cyanosis clubbing or edema. Skin is without rash or lesion. Neurologic examination is brief but nonfocal. - Labs CBC & Chem 7: 09/25/24 06:27 09/25/24 06:27 Labs: Abnormal Lab Results - Last 24 Hours (Table) 09/24/24 09/24/24 09/25/24 Range/Units 09:41 09:41 06:27 WBC 17.4 H 16.0 H (3.8-10.6) k/uL RBC 2.61 L 2.45 L (3.80-5.40) m/uL Hgb 8.8 L 8.4 L (11.4-16.0) gm/dL Hct 27.0 L 25.5 L (34.0-46.0) % MCV 103.5 H 104.2 H (80.0-100.0) fL RDW 18.0 H 17.7 H (11.5-15.5) % Neutrophils # 13.9 H (1.3-7.7) k/uL Sodium 133 L (137-145) mmol/L Potassium 3.2 L (3.5-5.1) mmol/L Carbon Dioxide 33 H (22-30) mmol/L BUN 24 H (7-17) mg/dL Creatinine 3.90 H (0.52-1.04) mg/dL Calcium 8.0 L (8.4-10.2) mg/dL AST 170 H (14-36) U/L ALT 62 H (4-34) U/L Alkaline Phosphatase 315 H (38-126) U/L Total Protein 4.2 L (6.3-8.2) g/dL Albumin 1.5 L (3.5-5.0) g/dL 09/25/24 Range/Units 06:27 WBC (3.8-10.6) k/uL RBC (3.80-5.40) m/uL Hgb (11.4-16.0) gm/dL Hct (34.0-46.0) % MCV (80.0-100.0) fL RDW (11.5-15.5) % Neutrophils # (1.3-7.7) k/uL Sodium 131 L (137-145) mmol/L Potassium 2.8 L (3.5-5.1) mmol/L Carbon Dioxide 32 H (22-30) mmol/L BUN 22 H (7-17) mg/dL Creatinine 3.57 H (0.52-1.04) mg/dL Calcium 7.8 L (8.4-10.2) mg/dL AST (14-36) U/L ALT (4-34) U/L Alkaline Phosphatase (38-126) U/L Total Protein (6.3-8.2) g/dL Albumin (3.5-5.0) g/dL Microbiology - Last 24 Hours (Table) 09/21/24 20:41 Blood Culture - Preliminary Blood 09/21/24 18:43 Blood Culture - Preliminary Blood 09/22/24 13:11 Gram Stain - Preliminary Peritoneal Fluid Body Fluid Culture - Preliminary Assessment and Plan Assessment: Altered mental status suspect secondary to sepsis suspect secondary to Klebsiella urinary tract infection. Altered mental status with toxic metabolic encephalopathy. Urinary tract infection, secondary to Klebsiella species. Acute sepsis secondary to above requiring fluid resuscitation. Leukocytosis. Acute chronic kidney disease suspect secondary to hypotension. Coronary artery disease with previous stent placement. History of congestive heart failure. Degenerative joint disease. Gastroesophageal reflux disease. History of hypertension. End-stage renal disease on peritoneal dialysis. Hyperlipidemia. Plan: Plan dated September 23, 2024. The patient was initially seen in the emergency department, with hypotension, and acute mental status changes. Her encephalopathy may relate to sepsis. The patient's urine does have gram-negative bacilli. The patient continues on antibiotics. Labs, x-rays, medications are reviewed. The patient is on 4 L of oxygen. The patient is getting D5W IV with 3 ampoules of sodium bicarb and at 80 cc an hour. She is on meropenem. She is getting lactated Ringer's at 100 cc an hour. She is a DO NOT RESUSCITATE patient. Prognosis is poor. Plan dated September 24, 2024. The patient is much more awake and alert. Her daughter is at the bedside. The patient continues on meropenem for her Klebsiella urinary tract infection, and urosepsis, with septic encephalopathy. Labs, x-rays, and medications are r eviewed. We will continue to follow the patient, make recommendations. Prognosis is guarded. Plan dated September 25, 2024. The patient is seen today in room 367. The patient is much more awake and alert. The patient is doing much better. Labs, x-rays, and medications are reviewed. The patient continues on meropenem for her Klebsiella urinary tract infection/urosepsis. Labs, x-rays, and medications are reviewed. The patient is a DO NOT RESUSCITATE patient. Prognosis is certainly guarded. Time with Patient: Less than 30
[2024-09-25] MEDS: POTASSIUM CHLORIDE 20 MEQ in WATER FOR INJECTION 1 100ML.BAG IVPB ONE ×2 (09:05→11:09)
--- NOTE | 2024-09-25 10:04 | P.PN ---
Subjective Progress Note Date: 09/25/24 Hospital course Patient is a 79-year-old female with a past medical history of end-stage renal disease on peritoneal dialysis, chronic systolic heart failure, hypertension, hyperlipidemia, coronary artery disease status post stent placement who presents to the ED with weakness and pain. Patient is a poor historian. I obtained history from daughter who is at bedside and is a pathologist. Per daughter 2 weeks ago patient had a fall and since then has been declining. Daughter states that patient has been eating and drinking less is not able to swallow her potassium pills. Patient has also been getting more confused. Patient prior to the fall was able to complete all her daily activities. Per daughter as baseline patient can walk around with minimal assistance with just holding the hand of her . She only requires some assistance with putting on her clothes. Now patient can barely stand up and requires two-person assistance. When I asked the patient where she has pain she touched her right lower abdomen. In the ED WBC 12.7, potassium 2.5, lactic acid 4.0, albumin 1.9, UA showed large leukocyte esterase and [address] abdomen pelvis showed nodular contour to the liver suggestive of hepatic cirrhosis with ascites. Patient also found to have left superior and inferior pubic rami fractures with mild displacement. Patient was referred to the medicine service for admission. Nephrology was consulted for peritoneal dialysis. Infectious disease was consulted due to history of multiple allergies as well as drug-resistant bacteria. Neurology was consulted due to worsening mental status. Patient's lactic acid was increasing so pulmonology was consulted for septic shock. Pulmonology recommended to resuscitate the patient. Patient given boluses of fluids. Her lactic acid then started to trend down. Patient's urine culture was positive for klebsiella ornithinolgtica. Patient currently on meropenem. Infectious disease following and managing antibiotics. Mental status is not improving. Patient failed swallow eval multiple times. Per nurse was unsuccessful placing NG tube. Subjective Patient seen this morning. was at bedside. states that her mental status is much better. He states that she is more calm today. Patient is following commands. She is AO x 2. Yesterday nurse failed to place NG tube 3 times. Physical exam General examination -elderly frail lady, ill-appearing, AO x 2 Heart - + S1S2 no murmurs Lungs -diminished breath sounds bilaterally Abdomen soft NT ND +ve BS Extremities - No edema [employer] -this morning patient is following some simple commands. Psych -moderately confused and still delirious Assessment and plan Acute toxic metabolic encephalopathy Urinary tract infection with lower abdominal pain Septic shock with elevated lactic acid, tachycardia and leukocytosis. urine culture positive for klebsiella ornithinolgtica I reviewed reviewed blood cultures that are negative to date I reviewed cultures from peritoneal fluid that is negative to date. Cell count from peritoneal fluid is still pending. At this point I suspect the labs for cell count is lost. Continue with meropenem renally dosed at 1 g every 24 hours. Continue with pharmacy to dose vancomycin. Infectious disease on board Continue lactated Ringer's 100 cc an hour Patient had EEG done that showed no epileptiform activity but showed findings consistent with moderate encephalopathy. CT head showed no acute process. Appreciate neurology consult IV morphine 2 mg every 3 hours as needed for pain. Severe hypokalemia on admission This morning potassium is 2.8. I have ordered for 40 mill equivalents of IV potassium chloride Severe malnutrition Patient's albumin is 1.6. Currently patient is not able to tolerate any p.o. intake and failed swallow eval multiple times Nurse attempted and failed to place NG tube multiple times Will attempt to place a Dobbhoff Will consult general surgery for PEG tube placement. Acute blood loss anemia I suspect this is dilutional. There is no overt signs of bleeding. Patient's hemoglobin this morning is 8.4. Continue to monitor CBC Hypovolemic hyponatremia Dehydration Resolved Generalized weakness PT OT consult ESRD on PD Metabolic acidosis Neurology on board and managing dialysis Metabolic acidosis has resolved. Patient now off bicarb drip Liver cirrhosis seen on CT scan Outpatient workup with gastroenterology. At this time patient does not show any signs of decompensated liver cirrhosis. Hypertension Blood pressure is on the low side so we will hold off on BP meds Coronary artery disease Status post cardiac stent Continue with aspirin 81 mg p.o. daily, atorvastatin 40 mg p.o. daily Hold off on metoprolol due to low blood pressure. Chronic systolic heart failure Patient currently appears hypovolemic Will hold off on diuretics and beta-velasquez for now due to low blood pressure Mild nondisplaced pelvic fractures Patient was here in the ED 2 weeks ago and was evaluated by orthopedic surgery who said no surgical intervention. Anxiety and depression Continue with Prozac 40 mg p.o. daily, Requip 0.25 mg p.o. at bedtime DVT prophylaxis: Hold subcu heparin due to acute blood loss anemia CODE STATUS: DNR/DNI Objective - Vital Signs Vital signs: Vital Signs Temp 97.9 F 09/25/24 08:37 Pulse 94 09/25/24 08:37 Resp 16 09/25/24 08:37 BP 94/59 09/25/24 08:37 Pulse Ox 96 09/25/24 09:32 FiO2 Intake & Output 09/24/24 09/25/24 09/25/24 18:59 06:59 18:59 Intake Total 1200 Balance 1200 Weight 31 kg Intake: Intake, IV Titration 1200 Amount Lactated Ringers 1,000 ml 1200 @ 100 mls/hr IV .Q10H [facility] Rx#:[id number] Other: Voiding Method Diaper Diaper - Labs CBC & Chem 7: 09/25/24 06:27 09/25/24 06:27 Labs: Abnormal Lab Results - Last 24 Hours (Table) 09/24/24 09/24/24 09/25/24 Range/Units 09:41 09:41 06:27 WBC 17.4 H 16.0 H (3.8-10.6) k/uL RBC 2.61 L 2.45 L (3.80-5.40) m/uL Hgb 8.8 L 8.4 L (11.4-16.0) gm/dL Hct 27.0 L 25.5 L (34.0-46.0) % MCV 103.5 H 104.2 H (80.0-100.0) fL RDW 18.0 H 17.7 H (11.5-15.5) % Neutrophils # 13.9 H (1.3-7.7) k/uL Sodium 133 L (137-145) mmol/L Potassium 3.2 L (3.5-5.1) mmol/L Carbon Dioxide 33 H (22-30) mmol/L BUN 24 H (7-17) mg/dL Creatinine 3.90 H (0.52-1.04) mg/dL Calcium 8.0 L (8.4-10.2) mg/dL AST 170 H (14-36) U/L ALT 62 H (4-34) U/L Alkaline Phosphatase 315 H (38-126) U/L Total Protein 4.2 L (6.3-8.2) g/dL Albumin 1.5 L (3.5-5.0) g/dL 09/25/24 Range/Units 06:27 WBC (3.8-10.6) k/uL RBC (3.80-5.40) m/uL Hgb (11.4-16.0) gm/dL Hct (34.0-46.0) % MCV (80.0-100.0) fL RDW (11.5-15.5) % Neutrophils # (1.3-7.7) k/uL Sodium 131 L (137-145) mmol/L Potassium 2.8 L (3.5-5.1) mmol/L Carbon Dioxide 32 H (22-30) mmol/L BUN 22 H (7-17) mg/dL Creatinine 3.57 H (0.52-1.04) mg/dL Calcium 7.8 L (8.4-10.2) mg/dL AST (14-36) U/L ALT (4-34) U/L Alkaline Phosphatase (38-126) U/L Total Protein (6.3-8.2) g/dL Albumin (3.5-5.0) g/dL Microbiology - Last 24 Hours (Table) 09/22/24 13:11 Gram Stain - Preliminary Peritoneal Fluid Body Fluid Culture - Preliminary 09/21/24 20:41 Blood Culture - Preliminary Blood 09/21/24 18:43 Blood Culture - Preliminary Blood
--- NOTE | 2024-09-25 11:16 | XR ---
EXAMINATION TYPE: XR chest 1V DATE OF EXAM: 09/25/2024 11:06 AM COMPARISON: Chest radiographs from 09/21/2024 CT CLINICAL INDICATION: Female, 79 years old with history of Dobbhoff placement confirmation; [facility] TECHNIQUE: XR chest 1V Frontal view of the chest. FINDINGS: Lungs/Pleura: Left lower lobe airspace opacities. There is no evidence of pleural effusion, focal con solidation, or pneumothorax. Pulmonary vascularity: Unremarkable. Heart/mediastinum: Cardiomediastinal silhouette is unremarkable. Musculoskeletal: No acute osseous pathology. There is fixation hardware in the lower cervical spine. Other findings: None Lines/Tubes: Nasogastric tube with its distal tip and side-port projecting in expected location of the gastric ant rum/duodenal bulb. IMPRESSION: 1. Dobbhoff with tip extending into the expected location of the gastric antrum and/or duodenum. 2. Left lower lobe airspace opacities correlate for pneumonia. [facility], , 09/25/2024 11:14 AM
--- NOTE | 2024-09-25 12:36 | P.PN ---
Subjective patient is seen for follow-up for end-stage renal disease. Overall improved from admission. Communicating more today status post Dobbhoff every placement this morning. Maintained on Ringer lactate Objective - Vital Signs Vital signs: Vital Signs Temp 97.9 F 09/25/24 11:00 Pulse 97 09/25/24 11:00 Resp 16 09/25/24 11:00 BP 91/56 09/25/24 11:00 Pulse Ox 98 09/25/24 11:00 FiO2 Intake & Output 09/24/24 09/25/24 09/25/24 18:59 06:59 18:59 Intake Total 1200 Balance 1200 Weight 31 kg Intake: Intake, IV Titration 1200 Amount Lactated Ringers 1,000 ml 1200 @ 100 mls/hr IV .Q10H [facility] Rx#:[id number] Other: Voiding Method Diaper Diaper Diaper - Exam patient is comfortable. nods to questions. Examination of the heart S1 and S2 Examination of the lungs bilateral breath sounds are heard Abdomen is soft nontender Examination of lower extremity shows no significant edema Moving all 4 extremities. - Labs CBC & Chem 7: 09/25/24 06:27 09/25/24 06:27 Labs: Abnormal Lab Results - Last 24 Hours (Table) 09/25/24 09/25/24 Range/Units 06:27 06:27 WBC 16.0 H (3.8-10.6) k/uL RBC 2.45 L (3.80-5.40) m/uL Hgb 8.4 L (11.4-16.0) gm/dL Hct 25.5 L (34.0-46.0) % MCV 104.2 H (80.0-100.0) fL RDW 17.7 H (11.5-15.5) % Neutrophils # 13.9 H (1.3-7.7) k/uL Sodium 131 L (137-145) mmol/L Potassium 2.8 L (3.5-5.1) mmol/L Carbon Dioxide 32 H (22-30) mmol/L BUN 22 H (7-17) mg/dL Creatinine 3.57 H (0.52-1.04) mg/dL Calcium 7.8 L (8.4-10.2) mg/dL Microbiology - Last 24 Hours (Table) 09/22/24 13:11 Gram Stain - Preliminary Peritoneal Fluid Body Fluid Culture - Preliminary 09/21/24 20:41 Blood Culture - Preliminary Blood 09/21/24 18:43 Blood Culture - Preliminary Blood Assessment and Plan Assessment: 1. End-stage renal disease on peritoneal dialysis 2. Abdominal pain most likely related to UTI. I do not see the PD fluid count back yet. 3. Metabolic acidosis associated with end-stage renal disease as well as lactic acidosis and underlying infection 4. CK D mineral bone disorder 5. Sepsis from UTI 6. Hypokalemia from decreased intake and PD Plan: Continue IV fluids Follow-up on PD fluid cell count Continue antibiotics maintain tube feedings. Having a PEG tube with peritoneal dialysis is not ideal but can be a consideration given that patient is not a candidate for hemodialy sis. We will need to discuss with the surgeon
[2024-09-25] MEDS ORDERED: Potassium Replacement Protocol 1 EACH MISC MISCELLANE PRN (13:27)
--- NOTE | 2024-09-25 15:04 | P.PN ---
Subjective Progress Note Date: 09/25/24 Principal diagnosis: Reason for follow-up is leukocytosis/UTI/possible peritonitis Patient is a 79-year-old female with a past medical history coronary disease heart failure with reflux hypertension hyperlipidemia osteoarthritis end-stage renal disease on peritoneal dialysis patient has been brought to the hospital concerning for right lower quadrant abdominal pain CT abdominal pelvis did not show any acute abnormality concerning for possible UTI versus PD cath associated peritonitis. On today's evaluation that is 09/25/2024, patient did not have any fever, the p atient is more awake and alert today and did answer some simple question patient did have NG for feeding no vomiting or diarrhea has been reported denies any chest pain or cough patient is currently on a 2 L nasal cannula oxygen. Patient white count is down to 16,000, creatinine 3.57 Objective - Vital Signs Vital signs: Vital Signs Temp 97.9 F 09/25/24 08:37 Pulse 94 09/25/24 08:37 Resp 16 09/25/24 08:37 BP 94/59 09/25/24 08:37 Pulse Ox 96 09/25/24 09:32 FiO2 Intake & Output 09/24/24 09/25/24 09/25/24 18:59 06:59 18:59 Intake Total 1200 Balance 1200 Weight 31 kg Intake: Intake, IV Titration 1200 Amount Lactated Ringers 1,000 ml 1200 @ 100 mls/hr IV .Q10H [facility] Rx#:[id number] Other: Voiding Method Diaper Diaper Diaper - Exam GENERAL DESCRIPTION: An elderly female lying in bed in no distress RESPIRATORY SYSTEM: Unlabored breathing , decreased breath sounds at bases HEART: S1 S2 regular rate and rhythm , ABDOMEN: Soft , no tenderness EXTREMITIES: No edema feet - Labs CBC & Chem 7: 09/25/24 06:27 09/25/24 06:27 Labs: Abnormal Lab Results - Last 24 Hours (Table) 09/25/24 09/25/24 Range/Units 06:27 06:27 WBC 16.0 H (3.8-10.6) k/uL RBC 2.45 L (3.80-5.40) m/uL Hgb 8.4 L (11.4-16.0) gm/dL Hct 25.5 L (34.0-46.0) % MCV 104.2 H (80.0-100.0) fL RDW 17.7 H (11.5-15.5) % Neutrophils # 13.9 H (1.3-7.7) k/uL Sodium 131 L (137-145) mmol/L Potassium 2.8 L (3.5-5.1) mmol/L Carbon Dioxide 32 H (22-30) mmol/L BUN 22 H (7-17) mg/dL Creatinine 3.57 H (0.52-1.04) mg/dL Calcium 7.8 L (8.4-10.2) mg/dL Microbiology - Last 24 Hours (Table) 09/22/24 13:11 Gram Stain - Preliminary Peritoneal Fluid Body Fluid Culture - Preliminary 09/21/24 20:41 Blood Culture - Preliminary Blood 09/21/24 18:43 Blood Culture - Preliminary Blood Assessment and Plan (1) Sepsis Current Visit: Yes Status: Acute Code(s): A41.9 - SEPSIS, UNSPECIFIED ORGANISM SNOMED Code(s): 17663599 (2) UTI (urinary tract infection) Current Visit: Yes Status: Acute Code(s): N39.0 - URINARY TRACT INFECTION, SITE NOT SPECIFIED SNOMED Code(s): 46940090 (3) Allergy to multiple antibiotics Current Visit: No Status: Acute Code(s): Z88.1 - ALLERGY STATUS TO OTHER ANTIBIOTIC AGENTS SNOMED Code(s): 077540082 Plan: 1patient presented to hospital with abdominal pain to the right lower quadrant area in this patient who did have a history of end-stage disease on peritoneal dialysis with a question of PD catheter associated peritonitis versus UTI the patient still makes urine he did have significantly positive UA 2patient with multiple antibiotic ALLERGIES that would limit the number of antibiotic safe to use 3-patient did have improvement in her white count which is down to 16,000, urine is growing Klebsiella that is likely ESBL however the patient did have cephalexin allergy, was not aware of the type of reaction she has has we will continue with meropenem await peritoneal fluid culture to finalize Dictation was produced using [employer] dictation software. please excuse any grammatical, word or spelling errors. Time with Patient: Less than 30
--- NOTE | 2024-09-25 15:25 | P.GSCN ---
History of Present Illness Consult date: 09/25/24 History of present illness: CHIEF COMPLAINT: Gastrostomy tube evaluation HISTORY OF PRESENT ILLNESS: The patient is a 79-year-old female presents with acute urosepsis, unintentional weight loss, underweight BMI 13.3 include end- stage renal disease on dialysis. Much history is obtained by her who is at bedside including review of medical records. Per , his 's health started to debilitated shortly after being started on dialysis where she develop ed intractable nausea with vomiting. Multiple medications were trialed with minimal improvement. Patient had a subsequent fall with fracture of her pelvis and now has pain with walking. He reports constant monitoring of her ambulation due to additional risk of falls. Patient was admitted to the hospital urgently after developing acute mental status changes. Patient presented acutely with severe hyponatremia, sodium 128 with confusion. WBC was elevated 12,000, potassium was severely low 2.8 with acute elevation of LFTs. Due to patient's malnutrition, Dobbhoff tube was placed for nutrition and medications. Patient had a swallow study demonstrating aspiration although patient was still somnolent per discussion with patient's . Due to aspiration found on swallow study, general surgery is consulted for PEG tube placement. Per discussion with , patient did not want a gastrostomy tube placed. PAST MEDICAL HISTORY: See list and reviewed PAST SURGICAL HISTORY: See list and reviewed MEDICATIONS: See list and reviewed ALLERGIES: See list and reviewed SOCIAL HISTORY: See list and reviewed FAMILY HISTORY: See list and reviewed REVIEW OF ORGAN SYSTEMS: CONSTITUTIONAL: No fevers or chills. Unintentional moderate weight loss over 20+ pounds in less than 6 months EYES: Has eye disorder. Has cataracts. HEENT: No difficulties with hearing. No nosebleeds. Has difficulty with swallowing. RESPIRATORY: Denies pneumonia. Denies any troubles with breathing or dyspnea on exertion. CARDIOVASCULAR: Has hyperlipidemia. Has coronary artery disease. History of heart failure. History of myocardial infarction. Has cardiac stent placement. GASTROINTESTINAL: Has chronic nausea and vomiting. Has gastroesophageal reflux disease. History of GI bleed. Has iron deficiency anemia. History of diverticular disease. Has ischemic cardiomyopathy. Past history of alcohol use. GENITOURINARY: Has renal failure and on dialysis. History of chronic urinary tract infections. NEUROLOGICAL: MUSCULOSKELETAL: Has back pain, stiffness or joint arthritis. Has osteoporosis. SKIN: No current skin cancer. No rash. PSYCHIATRIC: Has anxiety disorder. ENDOCRINE: Denies current thyroid disorders. Denies any blood sugar glucose intolerance. HEME/LYMPHATIC: Denies any lumps and bumps around the neck. No recent deep venous thrombosis. ALLERGY/IMMUNOLOGY: No immunoglobulin therapy. No immune deficiencies. BREAST: Denies current breast lumps, pain or nipple discharge. PHYSICAL EXAM: VITALS: Reviewed CONSTITUTIONAL: Well developed and in no acute distress. EYES: Conjuctivae without sclera icterus. Extraocular movements grossly intact. HEAD, EARS, NOSE, THROAT: Moist buccal mucosa. Head is atraumatic, normocephalic. Hears conversational speech. No nasal drainage. Has nasal Dobbhoff tube. NECK: Supple. No JV distention. No thyroidomegaly. RESPIRATORY: Non-labored respirations and equal bilateral excursions. CARDIOVASCULAR: Palpable 2+ radial pulses. ABDOMEN: Nontender. No peritonitis. LYMPH: No gross neck lymphadenopathy. MUSCULOSKELETAL: No clubbing cyanosis or edema. Resolved ecchymosis along forearms. SKIN: Warm and well perfused with good skin turgor. NEUROLOGIC: Cranial nerves II through XII grossly intact. No focal or lateralizing signs. PSYCH: Somnolent. Arousable and oriented to person. CLINCAL LABS: Reviewed. Sodium on admission 128, hyponatremia today 131. Potassium 2.5 on admission now 2.8. WBC elevated peak 24,000 now 16,000, leukocytosis. Lactic acid elevated 5.6 peak now 3.7. Creatinine 6.0 peak now 3.47. AST 214 today 170. ALT elevated 36 today 62. Alkaline phosphatase elevated 464, today 315. Albumin 1.5, severely low. Hemoglobin down to 10.3- 8.4. Microbiology demonstrates Klebsiella resistant to Bactrim and tetracycline IMAGING: Independently reviewed. CT of the abdomen pelvis noncontrasted, i ndependently reviewed demonstrates intra-abdominal ascites about the liver and the pelvis. Peritoneal dialysis catheter present. Small hiatal hernia present. This is my independent interpretation. Images reviewed with patient's at bedside. RADIOLOGY: Report reviewed. Presence of colonic diverticulosis, nodularity liver suspicious for cirrhosis of the liver, severe coronary artery disease, bilateral superior and inferior pubic rami fracture with mild displacement without acute intra-abdominal pathology. Ultrasound gallbladder report demonstrates gallbladder sludge on 09/16/2024 with presence of cirrhosis of the liver including mild thickening of the gallbladder wall. EEG reviewed demonstrates encephalopathy Video swallow study demonstrates aspiration nectar thin. RECORDS: previous old records reviewed EGD October 2023 demonstrates hiatal hernia including gastritis. Colonoscopy 2019 demonstrates hemorrhoids including moderate left colonic diverticulosis. ASSESSMENT: 1. Aspiration per swallow study 2. Intractable nausea and vomiting 3. Severe protein malnutrition 4. Underweight, BMI 13.3 5. End-stage renal disease peritoneal dialysis dependent 6. Liver cirrhosis 7. Urinary tract infection 8. Hyponatremia 9. Hypokalemia 10. Possible adverse reaction from multiple medications 11. Metabolic encephalopathy PLAN: 1. Patient's had described at length the longstanding intractable nausea and vomiting with subsequent weight loss as a result. has requested additional alternatives outside of gastrostomy tube placement and potentially assessment for intractable nausea and vomiting. 2. In review of medical reconciliation, multiple home medications are high risk for elderly including fluoxetine which may contribute to anorexia hyponatremia including intractable nausea vomiting. Potentiating effect will calcitriol also aggravates anorexia including nausea and vomiting. Amitiza also noted to have high risk of nausea and vomiting in elderly as well as ropinirole. Risk of adverse reaction from multiple medications in the elderly may contribute to her nausea. 3. Additionally, patient is on extremely high dose of Protonix 40 mg twice daily which for her weight may be toxic contributing to high risk of fractures, nausea, including areola. Recommend discontinuing medication as she is also taking Pepcid. Per patient imaging studies, liver impairment with cirrhosis and drugs that are metabolized in the liver may potentiate higher toxic levels in the bloodstream. 4. Swallow study and timing had coincided with patient's recent altered mental status due to metabolic encephalopathy. May benefit from repeat swallow study h owever given patient's intractable nausea and vomiting and underweight, with severe protein malnutrition, may benefit from gastrostomy tube placement even on a temporary basis while medication assessment and reconciliation may be of benefit. 5. Due to sludge and intractable nausea and vomiting, element of chronic cholecystitis and biliary dyskinesia can also mimic severe intractable nausea and vomiting separate from adverse reaction from medication. May benefit from HIDA scan as well. 6. All questions addressed. Family wishes to defer any options for surgical intervention until early Friday once physician family members are available to discuss plan of care. ADVANCE DIRECTIVE: CODE STATUS in chart. Thank you for this kind consultation. Past Medical History Past Medical History: Coronary Artery Disease (CAD), Heart Failure, Eye Disorder, GERD/Reflux, GI Bleed, Hyperlipidemia, Hypertension, Myocardial Infarction (IN), Musculoskeletal Disorder, Osteoarthritis (OA), Renal Disease Additional Past Medical History / Comment(s): anemia-iron deficiency, chronic kidney disease stage V- on CAPD, diverticular disease, osteoporosis, cataract, hiatal hernia, ischemic cardiomyopathy, bilateral renal nodules, UTIs Last Myocardial Infarction Date:: 11/27/22 History of Any Multi-Drug Resistant Organisms: ESBL Year Discovered:: 10/23/23 ESBL E.coli MDRO Source:: Urine Past Surgical History: Heart Catheterization With Stent, Orthopedic Surgery, Tonsillectomy, Tubal Ligation Additional Past Surgical History / Comment(s): removal ovaries, bilateral cataract removal with lens implants, cervical spinal fusion, cervical steroid injection, PCI Past Anesthesia/Blood Transfusion Reactions: No Reported Reaction Additional Past Anesthesia/Blood Transfusion Reaction / Comm: N/A Date of Last Stent Placement:: 11/27/22 Past Psychological History: Anxiety Smoking Status: Former smoker - Past Family History Mother Family Medical History: Osteoarthritis (OA) Additional Family Medical History / Comment(s): Sister(s) Family Medical History: Cancer Additional Family Medical History / Comment(s): breast cancer Father Family Medical History: No Reported History Additional Family Medical History / Comment(s): Brother(s) Family Medical History: Osteoarthritis (OA) Daughter(s) Family Medical History: No Reported History Son(s) Family Medical History: No Reported History Medications and Allergies Home Medications Medication Instructions Recorded Confirmed Type Famotidine [Pepcid] 20 mg PO DAILY 02/26/20 09/21/24 History Atorvastatin [Lipitor] 40 mg PO DAILY 01/03/23 09/21/24 History Cholecalciferol [Vitamin D3 (25 25 mcg PO DAILY 01/03/23 09/21/24 History Mcg = 1000 Iu)] Metoprolol Succinate [Toprol XL] 50 mg PO HS 01/03/23 09/21/24 History calcitrioL 0.25 mcg PO MOTH 01/03/23 09/21/24 History Aspirin EC [Ecotrin Low Dose] 81 mg PO DAILY 02/13/23 09/21/24 History FLUoxetine HCL 40 mg PO DAILY 10/23/23 09/21/24 History Folic Acid/Vit B Complex and C 0.8 mg PO DAILY 10/23/23 09/21/24 History [Nephro-Trang Tablet] Magnesium Oxide [Mag-Ox] 400 mg PO MOTUWETHFR@2100 10/23/23 09/21/24 History Pantoprazole [Protonix] 40 mg PO BID 10/23/23 09/21/24 History Potassium Chloride ER [K-Dur 10] 10 meq PO DAILY 10/23/23 09/21/24 History Gentamicin 0.1% Cream 1 applic TOPICAL DAILY 04/10/24 09/21/24 History Calcium Acetate [PhosLo] 1,334 mg PO TID-W/MEALS 04/11/24 09/21/24 History Ondansetron Odt [Zofran ODT] 4 mg PO Q6HR PRN 04/11/24 09/21/24 History Calcium Acetate [Phoslo] 667 mg PO DAILY PRN 09/21/24 09/21/24 History Lubiprostone [Amitiza] 8 mcg PO BID 09/21/24 09/21/24 History Metoclopramide [Reglan] 5 mg PO AC-TID 09/21/24 09/21/24 History rOPINIRole HCL [Requip] 0.25 mg PO HS 09/21/24 09/22/24 History Allergies Allergy/AdvReac Type Severity Reaction Status Date / Time celecoxib [From Celebrex] Allergy Rash/Hives Verified 09/21/24 15:43 cephalexin [From Keflex] Allergy Unknown Verified 09/21/24 15:43 nitrofurantoin Allergy Rash all Verified 09/21/24 15:43 [From Macrobid] over nitrofurantoin Allergy Rash all Verified 09/21/24 15:43 macrocrystalline over [From Macrobid] sulfamethoxazole Allergy Face Verified 09/21/24 15:43 [From Bactrim] swelling trimethoprim [From Bactrim] Allergy Face Verified 09/21/24 15:43 swelling Surgical - Exam Vital Signs Temp Pulse Resp BP Pulse Ox 97.4 F L 80 16 106/56 88 L 09/21/24 13:16 09/21/24 13:16 09/21/24 13:16 09/21/24 13:16 09/21/24 13:16 Results - Labs 09/25/24 06:27 09/25/24 06:27 Abnormal Lab Results - Last 24 Hours (Table) 09/25/24 09/25/24 Range/Units 06:27 06:27 WBC 16.0 H (3.8-10.6) k/uL RBC 2.45 L (3.80-5.40) m/uL Hgb 8.4 L (11.4-16.0) gm/dL Hct 25.5 L (34.0-46.0) % MCV 104.2 H (80.0-100.0) fL RDW 17.7 H (11.5-15.5) % Neutrophils # 13.9 H (1.3-7.7) k/uL Sodium 131 L (137-145) mmol/L Potassium 2.8 L (3.5-5.1) mmol/L Carbon Dioxide 32 H (22-30) mmol/L BUN 22 H (7-17) mg/dL Creatinine 3.57 H (0.52-1.04) mg/dL Calcium 7.8 L (8.4-10.2) mg/dL Microbiology - Last 24 Hours (Table) 09/22/24 13:11 Gram Stain - Preliminary Peritoneal Fluid Body Fluid Culture - Preliminary 09/21/24 20:41 Blood Culture - Preliminary Blood 09/21/24 18:43 Blood Culture - Preliminary Blood Diabetes panel 09/25/24 Range/Units 06:27 Sodium 131 L (137-145) mmol/L Potassium 2.8 L (3.5-5.1) mmol/L Chloride 98 (98-107) mmol/L Carbon Dioxide 32 H (22-30) mmol/L BUN 22 H (7-17) mg/dL Creatinine 3.57 H (0.52-1.04) mg/dL Glucose 96 (74-99) mg/dL Calcium 7.8 L (8.4-10.2) mg/dL Calcium panel 09/25/24 Range/Units 06:27 Calcium 7.8 L (8.4-10.2) mg/dL Phosphorus 2.5 (2.5-4.5) mg/dL Pituitary panel 09/25/24 Range/Units 06:27 Sodium 131 L (137-145) mmol/L Potassium 2.8 L (3.5-5.1) mmol/L Chloride 98 (98-107) mmol/L Carbon Dioxide 32 H (22-30) mmol/L BUN 22 H (7-17) mg/dL Creatinine 3.57 H (0.52-1.04) mg/dL Glucose 96 (74-99) mg/dL Calcium 7.8 L (8.4-10.2) mg/dL Adrenal panel 09/25/24 Range/Units 06:27 Sodium 131 L (137-145) mmol/L Potassium 2.8 L (3.5-5.1) mmol/L Chloride 98 (98-107) mmol/L Carbon Dioxide 32 H (22-30) mmol/L BUN 22 H (7-17) mg/dL Creatinine 3.57 H (0.52-1.04) mg/dL Glucose 96 (74-99) mg/dL Calcium 7.8 L (8.4-10.2) mg/dL
[2024-09-25] MEDS: POTASSIUM BICARBONATE/CIT AC 20 MEQ TABLET.EFF NG-TUBE SCH (18:00)
[2024-09-25] MEDS: ACETAMINOPHEN TAB 325 MG TAB PO PRN (22:25)
[2024-09-25 23:58] LABS: Glucose,Whole Blood 142 mg/dL (70-110)
[2024-09-26 05:58] LABS: Glucose,Whole Blood 125 mg/dL (70-110)
[2024-09-26 06:57] LABS: Appearance,BF Clear (Clear)
[2024-09-26 11:23] LABS: Glucose,Whole Blood 125 mg/dL (70-110)
[2024-09-26 11:48] LABS: Anisocytosis Slight; HCT 25.7 % (34.0-46.0); HGB 8.4 gm/dL (11.4-16.0); Hypochromasia Moderate; MCH 33.8 pg (25.0-35.0); MCHC 32.8 g/dL (31.0-37.0); MCV 103.3 fL (80.0-100.0); Macrocytosis Moderate; Mean Platelet Volume 7.7; Platelet Count 198 k/uL (150-450); RBC 2.49 m/uL (3.80-5.40); RDW 17.5 % (11.5-15.5); WBC 16.8 k/uL (3.8-10.6)
--- NOTE | 2024-09-26 11:55 | P.PN ---
Subjective Progress Note Date: 09/26/24 Principal diagnosis: Urosepsis. This is an 79-year-old female patient with a known history of degenerative joint disease, myocardial infarction, coronary artery disease with previous stent placement, congestive heart failure, gastroesophageal reflux disease, hypertension, end-stage renal disease peritoneal dialysis, hyperlipidemia who presented here to the emergency room yesterday with complaints of abdominal pain altered mental status. Count 16.1. Hemoglobin 10.0. Platelets 329. Sodium 133. Potassium 3.5. Bicarb 14. BUN 31. Creatinine 6.01. Glucose 123. Lactic acid 5.6, 4.6. AST 109. ALT 36. Alk phos 464. Lipase 121. Urinalysis turbid with many bacteria. CT scan of the abdomen and pelvis revealed no acute abdominal process. Some nodular contour of the liver suggestive of hepatic cirrhosis with ascites. Peritoneal dialysis catheter within the right abdomen. Small left pleural effusion. Colonic diverticulosis. Left superior and inferior pubic rami fractures with mild displacement. She is seen today in consultation in the emergency department. She is being considered for ICU placement. She is altered. Obtunded. Poor historian. Unclear of her baseline status. She is currently afebrile. Hemodynamically stable. On 2 L nasal cannula with O2 saturations up to 98%. Received 1 L of fluid resuscitation. Currently on lactated Ringer's at 100 mL/h. She has been initiated on meropenem. She has been initiated on D5W with 3 A of bicarb at 80 mL/h. Heparin for DVT prophylaxis. Blood and urine culture pending. Peritoneal fluid cultures pending. Progress note dated September 23, 2024. 79-year-old female that we saw in the emergency department yesterday, for hypotension, and sepsis. The patient appears to have a urinary tract infection. She is a DO NOT RESUSCITATE patient. She is seen today in room 367. She continues on oxygen, 4 L by nasal cannula. The patient is a chemical code only, no CPR, and the patient is not to be intubated. She is getting lactated Ringer's at 100 cc an hour, meropenem, and D5W with 3 ampoules of sodium bicarb and then 80 cc an hour. Her urine reveals evidence of gram-negative bacilli. White count is 24, hemoglobin 9.2, hematocrit 28.5, platelet count 264,000. Sodium 132, potassium 2.5, chlorides 99, CO2 25, BUN 27, creatinine 4.84. Her most recent lactic acid is 4.8. AST is 214. ALT is 61. Ammonia levels 10. Albumin is 1.6. Progress note dated September 24, 2024. 79-year-old female seen today in room 367. The patient's daughter is in the room. 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 The patient's urine analysis, showed evidence of Klebsiella. She continues on meropenem. She is on 2 L of oxygen. She is receiving lactated Ringer's at 100 cc an hour. The patient is much more alert and awake today. She is a DO NOT RESUSCITATE patient. Current labs include a white count 17.4, hemoglobin 8.8, hematocrit 27, and a platelet count of 3-43,000. Sodium 133, potassium 3.2, chloride 99, CO2 33, BUN is 24, creatinine is 3.90. Albumin is 1.5. TSH is normal. Progress note dated September 25, 2024. 79-year-old female seen today in room 367. She was initially seen in the emerg ency department. She was admitted with a diagnosis of sepsis, likely from a urinary source. The patient is doing better. She is much more awake and alert. She is on 2 L of oxygen. She is getting lactated Ringer's at 100 cc an hour. White count of 16, hemoglobin 8.4, hematocrit 25.5, and platelet count 182,000. Sodium 131, potassium 2.8, chlorides 98, CO2 32, BUN 22, and creatinine 3.57. The patient's calcium is 7.8. Phosphorus is 2.5. Urine culture was positive for Klebsiella. Chest x-ray from yesterday shows scattered infiltrates to the left lung and right lower lobe. Progress note dated September 26, 2024. 79-year-old female seen today in room 367. She is resting comfortably. She is on 2 L of oxygen. She continues on meropenem for her Klebsiella urinary tract infection/urosepsis. She is getting lactated Ringer's at 100 cc an hour. Family members are at the bedside. White count 16 point 0.4, hematocrit 25.7, and platelet counts normal. Glucose 125. Objective - Vital Signs Vital signs: Vital Signs Temp 97.8 F 09/26/24 11:45 Pulse 107 H 09/26/24 11:45 Resp 18 09/26/24 11:45 BP 97/51 09/26/24 11:45 Pulse Ox 96 09/26/24 11:45 FiO2 Intake & Output 09/25/24 09/26/24 09/26/24 18:59 06:59 18:59 Intake Total 388 Balance 388 Weight 31 kg 57.5 kg Intake: IV 10 Invasive Line 3 10 Tube Feeding 144 Other 234 Other: Voiding Method Diaper Diaper Diaper # Bowel Movements 1 1 - Exam The patient is more awake and alert. The patient is able to speak in full sentences. The patient continues on oxygen at 2 L. HEENT examination is grossly unremarkable. Neck supple. Full range of motion. No adenopathy thyromegaly or neck vein distention. Cardiovascular examination reveals regular rhythm rate. S1-S2 normal. No S3 or S4. No discernible murmur noted. Lungs reveal scattered rhonchi. No wheezes or crackles. 2 L saturation is adequate. Abdomen soft bowel sounds are heard. No masses or tenderness. Extremities are intact. No cyanosis clubbing or edema. Skin is without rash or lesion. Neurologic examination is brief but nonfocal. - Labs CBC & Chem 7: 09/26/24 11:35 09/25/24 16:47 Labs: Abnormal Lab Results - Last 24 Hours (Table) 09/25/24 09/26/24 09/26/24 Range/Units 23:54 05:55 11:21 WBC (3.8-10.6) k/uL RBC (3.80-5.40) m/uL Hgb (11.4-16.0) gm/dL Hct (34.0-46.0) % MCV (80.0-100.0) fL RDW (11.5-15.5) % POC Glucose (mg/dL) 142 H 125 H 125 H (70-110) mg/dL 09/26/24 Range/Units 11:35 WBC 16.8 H (3.8-10.6) k/uL RBC 2.49 L (3.80-5.40) m/uL Hgb 8.4 L (11.4-16.0) gm/dL Hct 25.7 L (34.0-46.0) % MCV 103.3 H (80.0-100.0) fL RDW 17.5 H (11.5-15.5) % POC Glucose (mg/dL) (70-110) mg/dL Microbiology - Last 24 Hours (Table) 09/22/24 13:11 Gram Stain - Final Peritoneal Fluid Body Fluid Culture - Final Assessment and Plan Assessment: Altered mental status suspect secondary to sepsis suspect secondary to Klebsiella urinary tract infection. Altered mental status with toxic metabolic encephalopathy. Urinary tract infection, secondary to Klebsiella species. Acute sepsis secondary to above requiring fluid resuscitation. Leukocytosis. Acute chronic kidney disease suspect secondary to hypotension. Coronary artery disease with previous stent placement. History of congestive heart failure. Degenerative joint disease. Gastroesophageal reflux disease. History of hypertension. End-stage renal disease on peritoneal dialysis. Hyperlipidemia. Plan: Plan dated September 23, 2024. The patient was initially seen in the emergency department, with hypotension, and acute mental status changes. Her encephalopathy may relate to sepsis. The patient's urine does have gram-negative bacilli. The patient continues on antibiotics. Labs, x-rays, medications are reviewed. The patient is on 4 L of oxygen. The patient is getting D5W IV with 3 ampoules of sodium bicarb and at 80 cc an hour. She is on meropenem. She is getting lactated Ringer's at 100 cc an hour. She is a DO NOT RESUSCITATE patient. Prognosis is poor. Plan dated September 24, 2024. The patient is much more awake and alert. Her daughter is at the bedside. The patient continues on meropenem for her Klebsiella urinary tract infection, and urosepsis, with septic encephalopathy. Labs, x-rays, and medications are reviewed. We will continue to follow the patient, make recommendations. Prognosis is guarded. Plan dated September 25, 2024. The patient is seen today in room 367. The patient is much more awake and alert. The patient is doing much better. Labs, x-rays, and medications are reviewed. The patient continues on meropenem for her Klebsiella urinary tract infection/urosepsis. Labs, x-rays, and medications are reviewed. The patient is a DO NOT RESUSCITATE patient. Prognosis is certainly guarded. Plan dated September 26, 2024. The patient is seen today in room 367. The patient continues on meropenem for her Klebsiella urinary tract infection. The patient is on 2 L of oxygen. She is receiving lactated Ringer's at 100 cc an hour. Labs, x-rays, and medications are reviewed. The patient is a DO NOT RESUSCITATE patient. Prognosis is guarded. Time with Patient: Less than 30
[2024-09-26 12:05] LABS: African American GFR (CKD) 14 (>60 ml/min/1.73 sqM); Anion Gap -1 mmol/L; Blood Urea Nitrogen 21 mg/dL (7-17); Carbon Dioxide 33 mmol/L (22-30); Chloride 97 mmol/L (98-107); Glucose 110 mg/dL (74-99); Non-African American GFR(CKD) 13 (>60 ml/min/1.73 sqM); Phosphorus 1.9 mg/dL (2.5-4.5); Potassium 3.4 mmol/L (3.5-5.1); Sodium 129 mmol/L (137-145)
--- NOTE | 2024-09-26 12:27 | P.PN ---
Subjective Progress Note Date: 09/26/24 Hospital course Patient is a 79-year-old female with a past medical history of end-stage renal disease on peritoneal dialysis, chronic systolic heart failure, hypertension, hyperlipidemia, coronary artery disease status post stent placement who presents to the ED with weakness and pain. Patient is a poor historian. I obtained history from daughter who is at bedside and is a pathologist. Per daughter 2 weeks ago patient had a fall and since then has been declining. Daughter states that patient has been eating and drinking less is not able to swallow her potassium pills. Patient has also been getting more confused. Patient prior to the fall was able to complete all her daily activities. Per daughter as baseline patient can walk around with minimal assistance with just holding the hand of her . She only requires some assistance with putting on her clothes. Now patient can barely stand up and requires two-person assistance. When I asked the patient where she has pain she touched her right lower abdomen. In the ED WBC 12.7, potassium 2.5, lactic acid 4.0, albumin 1.9, UA showed large leukocyte esterase and [address] abdomen pelvis showed nodular contour to the liver suggestive of hepatic cirrhosis with ascites. Patient also found to have left superior and inferior pubic rami fractures with mild displacement. Patient was referred to the medicine service for admission. Nephrology was consulted for peritoneal dialysis. Infectious disease was consulted due to history of multiple allergies as well as drug-resistant bacteria. Neurology was consulted due to worsening mental status. Patient's lactic acid was increasing so pulmonology was consulted for septic shock. Pulmonology recommended to resuscitate the patient. Patient given boluses of fluids. Her lactic acid then started to trend down. Patient's urine culture was positive for klebsiella ornithinolgtica. Patient currently on meropenem. Infectious disease following and managing antibiotics. Mental status is not improving. Patient failed swallow eval multiple times. Per nurse was unsuccessful placing NG tube. Patient had Dobbhoff placed by ICU nurse. Patient tolerating tube feeds. Surgery consulted for PEG tube. was discussed with his son and daughter as well as other physicians and the family about PEG tube placement. Subjective is at bedside. Per patient is doing much better. He states that her mental status is getting better. This morning patient was AOx3 which is a big improvement since admission. She is still slow to answer some questions and also still slightly confused. Last night patient was attempting to remove her Dobbhoff. Patient now has a one-to-one sitter. Physical exam General examination -elderly frail lady, ill-appearing, AO x 3 Heart - + S1S2 no murmurs Lungs -diminished breath sounds bilaterally Abdomen soft NT ND +ve BS Extremities - No edema ARTIST CONSULTANT -patient following simple commands. Psych -slightly confused Assessment and plan Acute toxic metabolic encephalopathy Urinary tract infection with lower abdominal pain Septic shock with elevated lactic acid, tachycardia and leukocytosis. urine culture positive for klebsiella ornithinolgtica Blood cultures negative Peritoneal fluid culture is also negative Continue with meropenem renally dosed at 1 g every 24 hours. Continue with pharmacy to dose vancomycin. Infectious disease on board Continue lactated Ringer's 100 cc an hour Patient had EEG done that showed no epileptiform activity but showed findings consistent with moderate encephalopathy. CT head showed no acute process. Appreciate neurology consult Discontinue morphine and use Tylenol as needed for pain One-to-one sitter Severe hypokalemia on admission Potassium this morning is 2.9 Will give 30 mmol of IV potassium phosphate Severe malnutrition Patient failed speech eval multiple times Speech therapy to reevaluate the patient tomorrow Dobbhoff placed and patient started on tube feeds. Patient currently at 12 cc an hour. Increase very gradually. Trend phosphorus levels to monitor for refeeding syndrome. This morning p hosphorus level is 1.9. Patient will be given 30 mmol of IV potassium phosphate GI consulted for PEG tube placement. still undecided about PEG tube and wants to discuss with other family members who are doctors. I reviewed general surgery note who is recommending to hold fluoxetine and Ami tiza and to reduce the dose of the Protonix. I doubt her medications are causing the nausea vomiting. I suspect the nausea vomiting is mainly due to large hiatal hernia. Fluoxetine cannot be discontinued suddenly so will defer to PCP outpatient to taper it off. Amitiza was started by gastroenterology so we will have patient follow-up with gastroenterology outpatient. I agree with surgery that we can reduce the dose of the Protonix from twice daily to daily. I have made this change. I discussed with the nurse this morning who said patient is not having any nausea or vomiting. Acute blood loss anemia I suspect this is dilutional. There is no overt signs of bleeding. Hemoglobin this morning is stable at 8.4 Continue to monitor CBC Hypovolemic hyponatremia Dehydration Resolved Generalized weakness PT OT consult ESRD on PD Metabolic acidosis Neurology on board and managing dialysis Metabolic acidosis has resolved. Patient now off bicarb drip Liver cirrhosis seen on CT scan Elevated LFTs Outpatient workup with gastroenterology. At this time patient does not show any signs of decompensated liver cirrhosis. Okay for Tylenol up to 4 g daily. LFTs are stable Hypertension Blood pressure is on the low side so we will hold off on BP meds Coronary artery disease Status post cardiac stent Continue with aspirin 81 mg p.o. daily Hold atorvastatin due to elevated LFTs Hold off on metoprolol due to low blood pressure. Chronic systolic heart failure Patient currently appears hypovolemic Will hold off on diuretics and beta-velasquez for now due to low blood pressure Mild nondisplaced pelvic fractures Patient was here in the ED 2 weeks ago and was evaluated by orthopedic surgery who said no surgical intervention. Anxiety and depression Continue with Prozac 40 mg p.o. daily, Requip 0.25 mg p.o. at bedtime DVT prophylaxis: Hold subcu heparin due to acute blood loss anemia CODE STATUS: DNR/DNI Objective - Vital Signs Vital signs: Vital Signs Temp 97.4 F L 09/26/24 04:25 Pulse 102 H 09/26/24 08:00 Resp 16 09/26/24 08:00 BP 101/66 09/26/24 08:00 Pulse Ox 99 09/26/24 08:00 FiO2 Intake & Output 09/25/24 09/26/24 09/26/24 18:59 06:59 18:59 Intake Total 388 Balance 388 Weight 31 kg 57.5 kg Intake: IV 10 Invasive Line 3 10 Tube Feeding 144 Other 234 Other: Voiding Method Diaper Diaper Diaper # Bowel Movements 1 1 - Labs CBC & Chem 7: 09/26/24 11:35 09/26/24 11:35 Labs: Abnormal Lab Results - Last 24 Hours (Table) 09/25/24 09/26/24 Range/Units 23:54 05:55 POC Glucose (mg/dL) 142 H 125 H (70-110) mg/dL Microbiology - Last 24 Hours (Table) 09/22/24 13:11 Gram Stain - Final Peritoneal Fluid Body Fluid Culture - Final
--- NOTE | 2024-09-26 14:01 | P.PN ---
Subjective patient is seen for follow-up for end-stage renal disease. Overall improved from admission. Communicating more today status post Dobbhoff tube placement and maintained on tube feedings. Maintained on Ringer lactate as well Objective - Vital Signs Vital signs: Vital Signs Temp 97.8 F 09/26/24 11:45 Pulse 107 H 09/26/24 11:45 Resp 18 09/26/24 11:45 BP 97/51 09/26/24 11:45 Pulse Ox 96 09/26/24 11:45 FiO2 Intake & Output 09/25/24 09/26/24 09/26/24 18:59 06:59 18:59 Intake Total 388 Balance 388 Weight 31 kg 57.5 kg Intake: IV 10 Invasive Line 3 10 Tube Feeding 144 Other 234 Other: Voiding Method Diaper Diaper Diaper # Bowel Movements 1 1 - Exam patient is comfortable. nods to questions. Examination of the heart S1 and S2 Examination of the lungs bilateral breath sounds are heard Abdomen is soft nontender Examination of lower extremity shows no significant edema Moving all 4 extremities. - Labs CBC & Chem 7: 09/26/24 11:35 09/26/24 11:35 Labs: Abnormal Lab Results - Last 24 Hours (Table) 09/25/24 09/26/24 09/26/24 Range/Units 23:54 05:55 11:21 WBC (3.8-10.6) k/uL RBC (3.80-5.40) m/uL Hgb (11.4-16.0) gm/dL Hct (34.0-46.0) % MCV (80.0-100.0) fL RDW (11.5-15.5) % Sodium (137-145) mmol/L Potassium (3.5-5.1) mmol/L Chloride (98-107) mmol/L Carbon Dioxide (22-30) mmol/L BUN (7-17) mg/dL Creatinine (0.52-1.04) mg/dL Glucose (74-99) mg/dL POC Glucose (mg/dL) 142 H 125 H 125 H (70-110) mg/dL Calcium (8.4-10.2) mg/dL Phosphorus (2.5-4.5) mg/dL 09/26/24 09/26/24 Range/Units 11:35 11:35 WBC 16.8 H (3.8-10.6) k/uL RBC 2.49 L (3.80-5.40) m/uL Hgb 8.4 L (11.4-16.0) gm/dL Hct 25.7 L (34.0-46.0) % MCV 103.3 H (80.0-100.0) fL RDW 17.5 H (11.5-15.5) % Sodium 129 L (137-145) mmol/L Potassium 3.4 L (3.5-5.1) mmol/L Chloride 97 L (98-107) mmol/L Carbon Dioxide 33 H (22-30) mmol/L BUN 21 H (7-17) mg/dL Creatinine 3.30 H (0.52-1.04) mg/dL Glucose 110 H (74-99) mg/dL POC Glucose (mg/dL) (70-110) mg/dL Calcium 8.0 L (8.4-10.2) mg/dL Phosphorus 1.9 L (2.5-4.5) mg/dL Microbiology - Last 24 Hours (Table) 09/22/24 13:11 Gram Stain - Final Peritoneal Fluid Body Fluid Culture - Final Assessment and Plan Assessment: 1. End-stage renal disease on peritoneal dialysis 2. Abdominal pain most likely related to UTI. PD fluid cell count is 0 3. Metabolic acidosis associated with end-stage renal disease as well as lactic acidosis and underlying infection 4. CK D mineral bone disorder 5. Sepsis from UTI 6. Hypokalemia from decreased intake and PD Plan: DC IV fluids Follow-up on PD fluid cell count Continue antibiotics maintain tube feedings via Dobbhoff tube. Having a PEG tube with peritoneal dialysis is not ideal but can be a consideration given that patient is not a candidate for hemodialysis. We will need to discuss with the surgeon.
--- NOTE | 2024-09-26 14:35 | P.PN ---
Subjective Progress Note Date: 09/26/24 Principal diagnosis: Reason for follow-up is leukocytosis/UTI/possible peritonitis Patient is a 79-year-old female with a past medical history coronary disease heart failure with reflux hypertension hyperlipidemia osteoarthritis end-stage renal disease on peritoneal dialysis patient has been brought to the hospital concerning for right lower quadrant abdominal pain CT abdominal pelvis did not show any acute abnormality concerning for possible UTI versus PD cath associated peritonitis. On today's evaluation that is 09/26/2024, Patient is afebrile patient is curren tly on 2 L nasal current oxygen patient is more awake and alert today and mention she is feeling better breathing comfortably she did have NG for feeding no vomiting or diarrhea has been reported. Patient white count is 16.8 creatinine 3.30 peritoneal fluid culture negative and the peritoneal fluid did have a 0 WBC Objective - Vital Signs Vital signs: Vital Signs Temp 97.8 F 09/26/24 11:45 Pulse 107 H 09/26/24 11:45 Resp 18 09/26/24 11:45 BP 97/51 09/26/24 11:45 Pulse Ox 96 09/26/24 11:45 FiO2 Intake & Output 09/25/24 09/26/24 09/26/24 18:59 06:59 18:59 Intake Total 388 Balance 388 Weight 31 kg 57.5 kg Intake: IV 10 Invasive Line 3 10 Tube Feeding 144 Other 234 Other: Voiding Method Diaper Diaper Diaper # Bowel Movements 1 1 - Exam GENERAL DESCRIPTION: An elderly female lying in bed in no distress RESPIRATORY SYSTEM: Unlabored breathing , decreased breath sounds at bases HEART: S1 S2 regular rate and rhythm , ABDOMEN: Soft , no tenderness EXTREMITIES: No edema feet - Labs CBC & Chem 7: 09/26/24 11:35 09/26/24 11:35 Labs: Abnormal Lab Results - Last 24 Hours (Table) 09/25/24 09/26/24 09/26/24 Range/Units 23:54 05:55 11:21 WBC (3.8-10.6) k/uL RBC (3.80-5.40) m/uL Hgb (11.4-16.0) gm/dL Hct (34.0-46.0) % MCV (80.0-100.0) fL RDW (11.5-15.5) % POC Glucose (mg/dL) 142 H 125 H 125 H (70-110) mg/dL 09/26/24 Range/Units 11:35 WBC 16.8 H (3.8-10.6) k/uL RBC 2.49 L (3.80-5.40) m/uL Hgb 8.4 L (11.4-16.0) gm/dL Hct 25.7 L (34.0-46.0) % MCV 103.3 H (80.0-100.0) fL RDW 17.5 H (11.5-15.5) % POC Glucose (mg/dL) (70-110) mg/dL Microbiology - Last 24 Hours (Table) 09/22/24 13:11 Gram Stain - Final Peritoneal Fluid Body Fluid Culture - Final Assessment and Plan (1) Sepsis Current Visit: Yes Status: Acute Code(s): A41.9 - SEPSIS, UNSPECIFIED ORGANISM SNOMED Code(s): 59960138 (2) UTI (urinary tract infection) Current Visit: Yes Status: Acute Code(s): N39.0 - URINARY TRACT INFECTION, SITE NOT SPECIFIED SNOMED Code(s): 55387632 (3) Allergy to multiple antibiotics Current Visit: No Status: Acute Code(s): Z88.1 - ALLERGY STATUS TO OTHER ANTIBIOTIC AGENTS SNOMED Code(s): 824204843 Plan: 1patient presented to hospital with abdominal pain to the right lower quadrant area in this patient who did have a history of end-stage disease on peritoneal dialysis with a question of PD catheter associated peritonitis versus UTI the patient still makes urine he did have significantly positive UA and urine cultures came back positive with Klebsiella, peritoneal culture negative 2patient with multiple antibiotic ALLERGIES that would limit the number of antibiotic safe to use 3-patient did have clinical improvement urine is positive for Klebsiella that is not an ESBL however the patient did have multiple antibiotic allergies covered with the meropenem Dictation was produced using [employer] dictation software. please excuse any grammatical, word or spelling errors. Time with Patient: Less than 30
[2024-09-26] MEDS: POTASSIUM PHOSPHATE 10 MMOL in SODIUM CHLORIDE 0.9% 250 ML IV SCH (15:13)
--- NOTE | 2024-09-26 15:16 | P.PN ---
Subjective Progress Note Date: 09/26/24 CHIEF COMPLAINT: Gastrostomy tube evaluation HISTORY OF PRESENT ILLNESS: The patient is a 79-year-old female presents with urinary tract infection, intractable nausea and vomiting chronic, unintentional weight loss, underweight BMI 13.3 include end-stage renal disease on dialysis. is at bedside. He reports he wants to wait until his daughter who is a physician at bedside to make any further decisions. Today, the patient is moderately alert and awake. She is more engaged. Patient does confirm that she is still nauseated. also reports that patient lost unintentional at least over 30 pounds in 1 year. She is on tube feeds. reports she has trouble swallowing larger pills and textured foods. REVIEW OF ORGAN SYSTEMS: No fevers or chills. Reports nausea. No vomiting. On peritoneal dialysis. PHYSICAL EXAM: VITALS: Reviewed CONSTITUTIONAL: Well developed and in no acute distress. EYES: Conjuctivae without sclera icterus. Extraocular movements grossly intact. HEAD, EARS, NOSE, THROAT: Moist buccal mucosa. Head is atraumatic, normocephalic. Hears conversational speech. No nasal drainage. Has nasal Dobbhoff tube. RESPIRATORY: Non-labored respirations and equal bilateral excursions. CARDIOVASCULAR: Palpable 2+ radial pulses. ABDOMEN: Nontender. No peritonitis. MUSCULOSKELETAL: No clubbing cyanosis or edema. Resolved ecchymosis along forearms. SKIN: Warm and well perfused with good skin turgor. NEUROLOGIC: Cranial nerves II through XII grossly intact. No focal or lateralizing signs. PSYCH: Awake and alert to person. Appropriate affect. CLINCAL LABS: Reviewed. Phosphate acutely dropped from 2.4-1.9, hypophosphatemia. Prior baseline phosphate 4.2 from prior hospitalizations, generally 2023. ASSESSMENT: 1. Aspiration per swallow study 2. Intractable nausea and vomiting 3. Severe protein malnutrition 4. Underweight, BMI 13.3 5. End-stage renal disease peritoneal dialysis dependent 6. Liver cirrhosis 7. Urinary tract infection 8. Hyponatremia 9. Hypokalemia 10. Possible adverse reaction from multiple medications 11. Metabolic encephalopathy 12. Refeeding syndrome. 13. Hypophosphatemia PLAN: 1. Extensive discussion was performed with at bedside. He also confirms that his is more alert and awake today relative to the time of her swallow study. 2. Review of hospitalist note also confirms change from high-dose Protonix 40 mg twice daily to once daily. 3. Patient has declining phosphate level from 4.2 her baseline down to 1.9. May benefit from discontinuing phosphate lowering medications due to high risk of refeeding syndrome and electrolyte dyscrasias. 4. With her chronic nausea longstanding for many years, her nausea may be a multifactorial including component of dysphagia, nausea due to medications including the possibility of gallbladder disorder. Patient did have ultrasound demonstrating gallbladder sludge with possible thickened gallbladder wall recently. 5. Do recommend HIDA scan to evaluate for biliary dyskinesia which may appear as symptomatic chronic nausea and vomiting. 6. As she has trouble swallowing large pills and textured foods, this may also be an element of dysphagia. High likelihood of presbyesophagus may benefit from upper endoscopy with rigid dilation thereby avoiding gastrostomy tube placement. 7. May benefit from extensive medical reconciliation as multiple medications potentiate intractable nausea and vomiting and symptoms are worse in the el sonia. 8. Overall as patient is more alert and awake, may benefit from repeat swallow study as patient had been somnolent at the time of her procedure per discussion with . confirms that patient only had 1 swallow study for the first time during her hospitalization and none prior. Objective - Vital Signs Vital signs: Vital Signs Temp 97.8 F 09/26/24 11:45 Pulse 107 H 09/26/24 11:45 Resp 18 09/26/24 11:45 BP 97/51 09/26/24 11:45 Pulse Ox 96 09/26/24 11:45 FiO2 Intake & Output 09/25/24 09/26/24 09/26/24 18:59 06:59 18:59 Intake Total 388 Balance 388 Weight 31 kg 57.5 kg Intake: IV 10 Invasive Line 3 10 Tube Feeding 144 Other 234 Other: Voiding Method Diaper Diaper Diaper # Bowel Movements 1 1 - Labs CBC & Chem 7: 09/26/24 11:35 09/26/24 11:35 Labs: Abnormal Lab Results - Last 24 Hours (Table) 09/25/24 09/26/24 09/26/24 Range/Units 23:54 05:55 11:21 WBC (3.8-10.6) k/uL RBC (3.80-5.40) m/uL Hgb (11.4-16.0) gm/dL Hct (34.0-46.0) % MCV (80.0-100.0) fL RDW (11.5-15.5) % Sodium (137-145) mmol/L Potassium (3.5-5.1) mmol/L Chloride (98-107) mmol/L Carbon Dioxide (22-30) mmol/L BUN (7-17) mg/dL Creatinine (0.52-1.04) mg/dL Glucose (74-99) mg/dL POC Glucose (mg/dL) 142 H 125 H 125 H (70-110) mg/dL Calcium (8.4-10.2) mg/dL Phosphorus (2.5-4.5) mg/dL 09/26/24 09/26/24 Range/Units 11:35 11:35 WBC 16.8 H (3.8-10.6) k/uL RBC 2.49 L (3.80-5.40) m/uL Hgb 8.4 L (11.4-16.0) gm/dL Hct 25.7 L (34.0-46.0) % MCV 103.3 H (80.0-100.0) fL RDW 17.5 H (11.5-15.5) % Sodium 129 L (137-145) mmol/L Potassium 3.4 L (3.5-5.1) mmol/L Chloride 97 L (98-107) mmol/L Carbon Dioxide 33 H (22-30) mmol/L BUN 21 H (7-17) mg/dL Creatinine 3.30 H (0.52-1.04) mg/dL Glucose 110 H (74-99) mg/dL POC Glucose (mg/dL) (70-110) mg/dL Calcium 8.0 L (8.4-10.2) mg/dL Phosphorus 1.9 L (2.5-4.5) mg/dL Microbiology - Last 24 Hours (Table) 09/22/24 13:11 Gram Stain - Final Peritoneal Fluid Body Fluid Culture - Final
[2024-09-26 16:31] LABS: Glucose,Whole Blood 107 mg/dL (70-110)
[2024-09-26] MEDS: POTAS-SOD-PHOS 280-160-250 MG 1 EACH PACKET PO SCH (18:09)
[2024-09-26] MEDS: DIALYSIS (PERIT 2.5%) 2,000 ML 50 G/2,000 ML BAG INTRAPERIT SCH (20:59)
[2024-09-27 00:21] LABS: Glucose,Whole Blood 114 mg/dL (70-110)
[2024-09-27 06:03] LABS: Glucose,Whole Blood 130 mg/dL (70-110)
[2024-09-27 06:18] LABS: Anisocytosis Slight; Basophils % (A) 0 %; Eosinophils # (A) 0.6 k/uL (0-0.7); Eosinophils % (A) 4 %; HGB 8.6 gm/dL (11.4-16.0); Hypochromasia Slight; Lymphocytes # (A) 0.8 k/uL (1.0-4.8); Lymphocytes % (A) 6 %; MCH 32.5 pg (25.0-35.0); MCHC 31.8 g/dL (31.0-37.0); MCV 102.3 fL (80.0-100.0); Macrocytosis Moderate; Mean Platelet Volume 8.2; Monocytes # (A) 0.9 k/uL (0-1.0); Monocytes % (A) 6 %; Neutrophils % (A) 83 %; Platelet Count 226 k/uL (150-450); RBC 2.64 m/uL (3.80-5.40); RDW 17.3 % (11.5-15.5); WBC 14.5 k/uL (3.8-10.6)
[2024-09-27 06:34] LABS: African American GFR (CKD) 16 (>60 ml/min/1.73 sqM); Anion Gap 3 mmol/L; Blood Urea Nitrogen 20 mg/dL (7-17); Calcium 7.7 mg/dL (8.4-10.2); Carbon Dioxide 31 mmol/L (22-30); Chloride 96 mmol/L (98-107); Glucose 116 mg/dL (74-99); Non-African American GFR(CKD) 14 (>60 ml/min/1.73 sqM); Phosphorus 2.4 mg/dL (2.5-4.5); Potassium 2.8 mmol/L (3.5-5.1); Sodium 130 mmol/L (137-145)
[2024-09-27] MEDS ORDERED: Potassium Replacement Protocol 1 EACH MISC MISCELLANE PRN (07:59)
[2024-09-27] MEDS: POTASSIUM BICARBONATE/CIT AC 20 MEQ TABLET.EFF NG-TUBE SCH (08:40)
[2024-09-27] MEDS: PANTOPRAZOLE 40 MG TABLET PO SCH (08:40)
--- NOTE | 2024-09-27 10:17 | P.PN ---
Subjective Progress Note Date: 09/27/24 SURGICAL PROGRESS NOTE CHIEF COMPLAINT: Gastrostomy tube evaluation HISTORY OF PRESENT ILLNESS: The patient is a 79-year-old female presents with urinary tract infection, intractable nausea and vomiting chronic, unintentional weight loss, underweight BMI 13.3 include end-stage renal disease on dialysis. Patient has dobbhoff tube in place for tube feeds. Per family at bedside patient is more awake and alert. Patient is scheduled for another MBS today to assess her swallow. Patient denies any abdominal pain. She denies any nausea. Denies any vomiting. Afebrile. Heart rate 110. WBC 14.5 Hgb 8.6 sodium 130 potassium 2.8 creatinine 3.04 PHYSICAL EXAM: VITAL SIGNS: Reviewed. GENERAL: in no acute distress. ABDOMEN: Soft. Nondistended. Nontender. NEUROLOGIC: Alert and oriented. Cranial nerves II through XII grossly intact. ASSESSMENT: 1. Aspiration per swallow study 2. Intractable nausea and vomiting 3. Severe protein malnutrition 4. Underweight, BMI 13.3 5. End-stage renal disease peritoneal dialysis dependent 6. Liver cirrhosis 7. Urinary tract infection 8. Hyponatremia 9. Hypokalemia PLAN: -Follow-up on repeat modified barium swallow study today -Further recommendations forthcoming per surgeon -Continue tube feeds for now -Continue to correct electrolytes Physician Marketing Programs Manager note has been reviewed by physician. Signing provider agrees with the documented findings, assessment, and plan of care. I have personally seen and examined the patient, reviewed the FITTER WELDER /PAs history, exam and MDM and agree with the assessment and plan as written. Based on total visit time, I have performed more than 50% of the visit. As above: Patient being followed for possible PEG tube placement. Patient presented with mental status changes and suspected UTI. Mental status has improved. Overall nutritional intake over the last several months per family has been poor. This seems to be multifactorial. Patient with underlying peritoneal dialysis use on a daily basis. The increased risk of comorbidities related to the peritoneal dialysate discussed with patient and family. Modified barium swallow ordered for today. Will review those studies. Family considering proceeding with PEG for nutritional support. Will follow. Objective - Vital Signs Vital signs: Vital Signs Temp 98.3 F 09/27/24 04:52 Pulse 110 H 09/27/24 08:00 Resp 16 09/27/24 08:00 BP 113/69 12/16/24 08:00 Pulse Ox 99 09/27/24 08:00 FiO2 Intake & Output 09/26/24 09/27/24 09/27/24 18:59 06:59 18:59 Weight 57.5 kg Other: Voiding Method CAPD CAPD # Bowel Movements 1 - Labs CBC & Chem 7: 09/27/24 05:56 09/27/24 05:56 Labs: Abnormal Lab Results - Last 24 Hours (Table) 09/26/24 09/26/24 09/26/24 Range/Units 11:21 11:35 11:35 WBC 16.8 H (3.8-10.6) k/uL RBC 2.49 L (3.80-5.40) m/uL Hgb 8.4 L (11.4-16.0) gm/dL Hct 25.7 L (34.0-46.0) % MCV 103.3 H (80.0-100.0) fL RDW 17.5 H (11.5-15.5) % Neutrophils # (1.3-7.7) k/uL Lymphocytes # (1.0-4.8) k/uL Sodium 129 L (137-145) mmol/L Potassium 3.4 L (3.5-5.1) mmol/L Chloride 97 L (98-107) mmol/L Carbon Dioxide 33 H (22-30) mmol/L BUN 21 H (7-17) mg/dL Creatinine 3.30 H (0.52-1.04) mg/dL Glucose 110 H (74-99) mg/dL POC Glucose (mg/dL) 125 H (70-110) mg/dL Calcium 8.0 L (8.4-10.2) mg/dL Phosphorus 1.9 L (2.5-4.5) mg/dL 09/27/24 09/27/24 09/27/24 Range/Units 00:19 05:56 05:56 WBC 14.5 H (3.8-10.6) k/uL RBC 2.64 L (3.80-5.40) m/uL Hgb 8.6 L (11.4-16.0) gm/dL Hct 27.0 L (34.0-46.0) % MCV 102.3 H (80.0-100.0) fL RDW 17.3 H (11.5-15.5) % Neutrophils # 12.0 H (1.3-7.7) k/uL Lymphocytes # 0.8 L (1.0-4.8) k/uL Sodium 130 L (137-145) mmol/L Potassium 2.8 L (3.5-5.1) mmol/L Chloride 96 L (98-107) mmol/L Carbon Dioxide 31 H (22-30) mmol/L BUN 20 H (7-17) mg/dL Creatinine 3.04 H (0.52-1.04) mg/dL Glucose 116 H (74-99) mg/dL POC Glucose (mg/dL) 114 H (70-110) mg/dL Calcium 7.7 L (8.4-10.2) mg/dL Phosphorus 2.4 L (2.5-4.5) mg/dL 09/27/24 Range/Units 06:01 WBC (3.8-10.6) k/uL RBC (3.80-5.40) m/uL Hgb (11.4-16.0) gm/dL Hct (34.0-46.0) % MCV (80.0-100.0) fL RDW (11.5-15.5) % Neutrophils # (1.3-7.7) k/uL Lymphocytes # (1.0-4.8) k/uL Sodium (137-145) mmol/L Potassium (3.5-5.1) mmol/L Chloride (98-107) mmol/L Carbon Dioxide (22-30) mmol/L BUN (7-17) mg/dL Creatinine (0.52-1.04) mg/dL Glucose (74-99) mg/dL POC Glucose (mg/dL) 130 H (70-110) mg/dL Calcium (8.4-10.2) mg/dL Phosphorus (2.5-4.5) mg/dL Microbiology - Last 24 Hours (Table) 09/21/24 20:41 Blood Culture - Final Blood 09/21/24 18:43 Blood Culture - Final Blood 09/22/24 13:11 Gram Stain - Final Peritoneal Fluid Body Fluid Culture - Final
--- NOTE | 2024-09-27 10:23 | P.PN ---
Subjective Patient is seen in follow-up for end-stage renal disease. She is maintained on peritoneal dialysis. Family present at bedside. Receiving tube feeds. Swallow eval today. Vital signs are stable. General: No acute distress. HEENT: NG tube noted. LUNGS: No audible rhonchi or wheezes. HEART: Rate and Rhythm are regular. Cut the ABDOMEN: Nontender. EXTREMITITES: 2+ edema. Objective - Vital Signs Vital signs: Vital Signs Temp 98.3 F 09/27/24 04:52 Pulse 110 H 09/27/24 08:00 Resp 16 09/27/24 08:00 BP 113/69 09/27/24 08:00 Pulse Ox 99 09/27/24 08:00 FiO2 Intake & Output 09/26/24 09/27/24 09/27/24 18:59 06:59 18:59 Weight 57.5 kg Other: Voiding Method CAPD CAPD # Bowel Movements 1 - Labs CBC & Chem 7: 09/27/24 05:56 09/27/24 05:56 Labs: Abnormal Lab Results - Last 24 Hours (Table) 09/26/24 09/26/24 09/26/24 Range/Units 11:21 11:35 11:35 WBC 16.8 H (3.8-10.6) k/uL RBC 2.49 L (3.80-5.40) m/uL Hgb 8.4 L (11.4-16.0) gm/dL Hct 25.7 L (34.0-46.0) % MCV 103.3 H (80.0-100.0) fL RDW 17.5 H (11.5-15.5) % Neutrophils # (1.3-7.7) k/uL Lymphocytes # (1.0-4.8) k/uL Sodium 129 L (137-145) mmol/L Potassium 3.4 L (3.5-5.1) mmol/L Chloride 97 L (98-107) mmol/L Carbon Dioxide 33 H (22-30) mmol/L BUN 21 H (7-17) mg/dL Creatinine 3.30 H (0.52-1.04) mg/dL Glucose 110 H (74-99) mg/dL POC Glucose (mg/dL) 125 H (70-110) mg/dL Calcium 8.0 L (8.4-10.2) mg/dL Phosphorus 1.9 L (2.5-4.5) mg/dL 09/27/24 09/27/24 09/27/24 Range/Units 00:19 05:56 05:56 WBC 14.5 H (3.8-10.6) k/uL RBC 2.64 L (3.80-5.40) m/uL Hgb 8.6 L (11.4-16.0) gm/dL Hct 27.0 L (34.0-46.0) % MCV 102.3 H (80.0-100.0) fL RDW 17.3 H (11.5-15.5) % Neutrophils # 12.0 H (1.3-7.7) k/uL Lymphocytes # 0.8 L (1.0-4.8) k/uL Sodium 130 L (137-145) mmol/L Potassium 2.8 L (3.5-5.1) mmol/L Chloride 96 L (98-107) mmol/L Carbon Dioxide 31 H (22-30) mmol/L BUN 20 H (7-17) mg/dL Creatinine 3.04 H (0.52-1.04) mg/dL Glucose 116 H (74-99) mg/dL POC Glucose (mg/dL) 114 H (70-110) mg/dL Calcium 7.7 L (8.4-10.2) mg/dL Phosphorus 2.4 L (2.5-4.5) mg/dL 09/27/24 Range/Units 06:01 WBC (3.8-10.6) k/uL RBC (3.80-5.40) m/uL Hgb (11.4-16.0) gm/dL Hct (34.0-46.0) % MCV (80.0-100.0) fL RDW (11.5-15.5) % Neutrophils # (1.3-7.7) k/uL Lymphocytes # (1.0-4.8) k/uL Sodium (137-145) mmol/L Potassium (3.5-5.1) mmol/L Chloride (98-107) mmol/L Carbon Dioxide (22-30) mmol/L BUN (7-17) mg/dL Creatinine (0.52-1.04) mg/dL Glucose (74-99) mg/dL POC Glucose (mg/dL) 130 H (70-110) mg/dL Calcium (8.4-10.2) mg/dL Phosphorus (2.5-4.5) mg/dL Microbiology - Last 24 Hours (Table) 09/21/24 20:41 Blood Culture - Final Blood 09/21/24 18:43 Blood Culture - Final Blood 09/22/24 13:11 Gram Stain - Final Peritoneal Fluid Body Fluid Culture - Final Assessment and Plan Plan: Assessment: 1. End-stage renal disease maintained on peritoneal dialysis. 2. Volume overload. 3. Hypokalemia from poor intake. 4. Hypervolemic hyponatremia. 5. Dysphagia. Swallow eval today. 6. Coronary artery disease. 7. Klebsiella UTI on antibiotics. No evidence of peritonitis. Plan: Change PD exchanges to 2.5% dextrose solution. Replace potassium. Repeat potassium level this afternoon and continue to replace per protocol. Repeat magnesium and phosphorus level. Swallow eval pending. Case discussed with patient and family present at bedside.
[2024-09-27] MEDS: DIALYSIS (PERIT 2.5%) 2,000 ML 50 G/2,000 ML BAG INTRAPERIT SCH ×2 (10:48→16:33)
--- NOTE | 2024-09-27 12:34 | FL ---
Modified barium swallow. HISTORY: Dysphagia. Modified barium swallow was performed with the department of speech pathology. The patient was prese nted with various consistencies of barium. There is no evidence for aspiration or penetration. Full report is to follow from the department of speech pathology. Impression: Normal study. [facility], , 09/27/2024 12:31 PM
--- NOTE | 2024-09-27 14:40 | P.PN ---
Subjective Progress Note Date: 09/27/24 This is an 79-year-old female patient with a known history of degenerative joint disease, myocardial infarction, coronary artery disease with previous stent placement, congestive heart failure, gastroesophageal reflux disease, hypertension, end-stage renal disease peritoneal dialysis, hyperlipidemia who presented here to the emergency room yesterday with complaints of abdominal pain altered mental status. Count 16.1. Hemoglobin 10.0. Platelets 329. Sodium 133. Potassium 3.5. Bicarb 14. BUN 31. Creatinine 6.01. Glucose 123. Lactic acid 5.6, 4.6. AST 109. ALT 36. Alk phos 464. Lipase 121. Urinalysis turbid with many bacteria. CT scan of the abdomen and pelvis revealed no acute abdominal process. Some nodular contour of the liver suggestive of hepatic cirrhosis with ascites. Peritoneal dialysis catheter within the right abdomen. Small left pleural effusion. Colonic diverticulosis. Left superior and inferior pubic rami fractures with mild displacement. She is seen today in consultation in the emergency department. She is being considered for ICU placement. She is altered. Obtunded. Poor historian. Unclear of her baseline status. She is currently afebrile. Hemodynamically stable. On 2 L nasal cannula with O2 saturations up to 98%. Received 1 L of fluid resuscitation. Currently on lactated Ringer's at 100 mL/h. She has been initiated on meropenem. She has been initiated on D5W with 3 A of bicarb at 80 mL/h. Heparin for DVT prophylaxis. Blood and urine culture pending. Peritoneal fluid cultures pending. Progress note dated September 23, 2024. 79-year-old female that we saw in the emergency department yesterday, for hypotension, and sepsis. The patient appears to have a urinary tract infection. She is a DO NOT RESUSCITATE patient. She is seen today in room 367. She continues on oxygen, 4 L by nasal cannula. The patient is a chemical code only, no CPR, and the patient is not to be intubated. She is getting lactated Ringer's at 100 cc an hour, meropenem, and D5W with 3 ampoules of sodium bicarb and then 80 cc an hour. Her urine reveals evidence of gram-negative bacilli. White count is 24, hemoglobin 9.2, hematocrit 28.5, platelet count 264,000. Sodium 132, potassium 2.5, chlorides 99, CO2 25, BUN 27, creatinine 4.84. Her most recent lactic acid is 4.8. AST is 214. ALT is 61. Ammonia levels 10. Albumin is 1.6. Progress note dated September 24, 2024. 79-year-old female seen today in room 367. The patient's daughter is in the room. 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 The patient's urine analysis, showed evidence of Klebsiella. She continues on meropenem. She is on 2 L of oxygen. She is receiving lactated Ringer's at 100 cc an hour. The patient is much more alert and awake today. She is a DO NOT RESUSCITATE patient. Current labs include a white count 17.4, hemoglobin 8.8, hematocrit 27, and a platelet count of 3-43,000. Sodium 133, potassium 3.2, chloride 99, CO2 33, BUN is 24, creatinine is 3.90. Albumin is 1.5. TSH is normal. Progress note dated September 25, 2024. 79-year-old female seen today in room 367. She was initially seen in the emergency department. She was admitted with a diagnosis of sepsis, likely from a urinary source. The patient is doing better. She is much more awake and alert. She is on 2 L of oxygen. She is getting lactated Ringer's at 100 cc an hour. White count of 16, hemoglobin 8.4, hematocrit 25.5, and platelet count 182,000. Sodium 131, potassium 2.8, chlorides 98, CO2 32, BUN 22, and creatinine 3.57. The patient's calcium is 7.8. Phosphorus is 2.5. Urine cul ture was positive for Klebsiella. Chest x-ray from yesterday shows scattered infiltrates to the left lung and right lower lobe. Progress note dated September 26, 2024. 79-year-old female seen today in room 367. She is resting comfortably. She is on 2 L of oxygen. She continues on meropenem for her Klebsiella urinary tract infection/urosepsis. She is getting lactated Ringer's at 100 cc an hour. Family members are at the bedside. White count 16 point 0.4, hematocrit 25.7, and platelet counts normal. Glucose 125. On 09/27/2024, I am seeing the patient for a follow-up. The patient is cu rrently on 2 L of oxygen by nasal cannula. Awake and alert and communicating. Profoundly weak. She continues to receive enteral feeding for nutritional support. The patient had difficulties with swallowing due to her generalized debility and the patient has an NG tube and the patient is receiving Nepro at rate of 12 cc an hour. The patient remains on broad-spectrum antibiotics and the patient is currently on IV meropenem for a Klebsiella urinary tract infection. The abdominal fluid was negative for any microbial growth. The patient undergoes peritoneal dialysis on a daily basis. Hemodynamically stable. Currently on 2 L of oxygen nasal cannula with a pulse ox of 99%. White cell count down to 14.5 with a hemoglobin 8.6 and a platelet count of 226. BUN is 20 with a creatinine of 3.04 and sodium is at 130 and a potassium level is at 2.8 which is being replaced. Blood sugars at 130. No other significant events overnight. The patient had a modified barium swallow today and this turned out to be a normal study. Most recent chest x-ray from 09/24/2024 showed scattered infiltrates in the left and right lower lobe. Objective - Vital Signs Vital signs: Vital Signs Temp 98.3 F 09/27/24 04:52 Pulse 110 H 09/27/24 08:00 Resp 16 09/27/24 08:00 BP 113/69 09/27/24 08:00 Pulse Ox 99 09/27/24 08:00 FiO2 Intake & Output 09/26/24 09/27/24 09/27/24 18:59 06:59 18:59 Weight 57.5 kg Other: Voiding Method CAPD CAPD # Bowel Movements 1 - Exam The patient is more awake and alert. The patient is able to speak in full sentences. The patient continues on oxygen at 2 L. HEENT examination is grossly unremarkable. Neck supple. Full range of motion. No adenopathy thyromegaly or neck vein distention. Cardiovascular examination reveals regular rhythm rate. S1-S2 normal. No S3 or S4. No discernible murmur noted. Lungs reveal scattered rhonchi. No wheezes or crackles. Abdomen soft bowel sounds are heard. No masses or tenderness. The patient has a peritoneal catheter in place. No direct tenderness rebound tenderness or guarding Extremities are intact. No cyanosis clubbing or edema. Skin is without rash or lesion. Neurologic examination is brief but nonfocal. Generalized profound weakness in all 4 extremities - Labs CBC & Chem 7: 12/16/24 05:56 09/27/24 05:56 Labs: Abnormal Lab Results - Last 24 Hours (Table) 09/26/24 09/26/24 09/26/24 Range/Units 11:21 11:35 11:35 WBC 16.8 H (3.8-10.6) k/uL RBC 2.49 L (3.80-5.40) m/uL Hgb 8.4 L (11.4-16.0) gm/dL Hct 25.7 L (34.0-46.0) % MCV 103.3 H (80.0-100.0) fL RDW 17.5 H (11.5-15.5) % Neutrophils # (1.3-7.7) k/uL Lymphocytes # (1.0-4.8) k/uL Sodium 129 L (137-145) mmol/L Potassium 3.4 L (3.5-5.1) mmol/L Chloride 97 L (98-107) mmol/L Carbon Dioxide 33 H (22-30) mmol/L BUN 21 H (7-17) mg/dL Creatinine 3.30 H (0.52-1.04) mg/dL Glucose 110 H (74-99) mg/dL POC Glucose (mg/dL) 125 H (70-110) mg/dL Calcium 8.0 L (8.4-10.2) mg/dL Phosphorus 1.9 L (2.5-4.5) mg/dL 09/27/24 09/27/24 09/27/24 Range/Units 00:19 05:56 05:56 WBC 14.5 H (3.8-10.6) k/uL RBC 2.64 L (3.80-5.40) m/uL Hgb 8.6 L (11.4-16.0) gm/dL Hct 27.0 L (34.0-46.0) % MCV 102.3 H (80.0-100.0) fL RDW 17.3 H (11.5-15.5) % Neutrophils # 12.0 H (1.3-7.7) k/uL Lymphocytes # 0.8 L (1.0-4.8) k/uL Sodium 130 L (137-145) mmol/L Potassium 2.8 L (3.5-5.1) mmol/L Chloride 96 L (98-107) mmol/L Carbon Dioxide 31 H (22-30) mmol/L BUN 20 H (7-17) mg/dL Creatinine 3.04 H (0.52-1.04) mg/dL Glucose 116 H (74-99) mg/dL POC Glucose (mg/dL) 114 H (70-110) mg/dL Calcium 7.7 L (8.4-10.2) mg/dL Phosphorus 2.4 L (2.5-4.5) mg/dL 09/27/24 Range/Units 06:01 WBC (3.8-10.6) k/uL RBC (3.80-5.40) m/uL Hgb (11.4-16.0) gm/dL Hct (34.0-46.0) % MCV (80.0-100.0) fL RDW (11.5-15.5) % Neutrophils # (1.3-7.7) k/uL Lymphocytes # (1.0-4.8) k/uL Sodium (137-145) mmol/L Potassium (3.5-5.1) mmol/L Chloride (98-107) mmol/L Carbon Dioxide (22-30) mmol/L BUN (7-17) mg/dL Creatinine (0.52-1.04) mg/dL Glucose (74-99) mg/dL POC Glucose (mg/dL) 130 H (70-110) mg/dL Calcium (8.4-10.2) mg/dL Phosphorus (2.5-4.5) mg/dL Microbiology - Last 24 Hours (Table) 09/21/24 20:41 Blood Culture - Final Blood 09/21/24 18:43 Blood Culture - Final Blood 09/22/24 13:11 Gram Stain - Final Peritoneal Fluid Body Fluid Culture - Final Assessment and Plan Plan: Altered mental status suspect secondary to sepsis suspect secondary to Klebsiella urinary tract infection. Improved neurologically and the patient is able to communicate. Family is at the bedside. No focal neurological deficits. This is most likely metabolic encephalopathy following a gram-negative urinary tract infection. Dysphagia , receiving enteral nutrition via an NG tube for nutritional support and the patient is currently on Nepro. Swallow evaluation was repeated and the patient had a normal swallow. Urinary tract infection, secondary to Klebsiella species. The patient is currently on IV meropenem Acute sepsis secondary to above requiring fluid resuscitation. Hemodynamically stable Leukocytosis, improving End-stage renal disease on peritoneal dialysis Coronary artery disease with previous stent placement. History of congestive heart failure. Degenerative joint disease. Gastroesophageal reflux disease. History of hypertension. Hyperlipidemia. Plan: Clinically stable Mental status gradually improving Continue IV meropenem Continue peritoneal dialysis Hemodynamically stable Swallow evaluation was repeated and the patient was able to pass the swallow eval. May consider increasing oral intake and discontinuing the NG tube at a later stage Aspiration precautions DNR/DNI CODE STATUS Will continue to follow
[2024-09-27] MEDS: POTASSIUM BICARBONATE/CIT AC 20 MEQ TABLET.EFF PO ONE (15:57)
[2024-09-27 16:05] LABS: % Iron Saturation 27.27 (12.00-45.00)
[2024-09-27 18:05] LABS: Glucose,Whole Blood 127 mg/dL (70-110)
--- NOTE | 2024-09-27 18:07 | P.PN ---
Subjective Progress Note Date: 09/27/24 Hospital course Patient is a 79-year-old female with a past medical history of end-stage renal disease on peritoneal dialysis, chronic systolic heart failure, hypertension, hyperlipidemia, coronary artery disease status post stent placement who presents to the ED with weakness and pain. Patient is a poor historian. I obtained history from daughter who is at bedside and is a pathologist. Per daughter 2 weeks ago patient had a fall and since then has been declining. Daughter states that patient has been eating and drinking less is not able to swallow her potassium pills. Patient has also been getting more confused. Patient prior to the fall was able to complete all her daily activities. Per daughter as baseline patient can walk around with minimal assistance with just holding the hand of her . She only requires some assistance with putting on her clothes. Now patient can barely stand up and requires two-person assistance. When I asked the patient where she has pain she touched her right lower abdomen. In the ED WBC 12.7, potassium 2.5, lactic acid 4.0, albumin 1.9, UA showed large leukocyte esterase and [address] abdomen pelvis showed nodular contour to the liver suggestive of hepatic cirrhosis with ascites. Patient also found to have left superior and inferior pubic rami fractures with mild displacement. Patient was referred to the medicine service for admission. Nephrology was consulted for peritoneal dialysis. Infectious disease was consulted due to history of multiple allergies as well as drug-resistant bacteria. Neurology was consulted due to worsening mental status. Patient's lactic acid was increasing so pulmonology was consulted for septic shock. Pulmonology recommended to resuscitate the patient. Patient given boluses of fluids. Her lactic acid then started to trend down. Patient's urine culture was positive for klebsiella ornithinolgtica. Patient currently on meropenem. Infectious disease following and managing antibiotics. Mental status is not improving. Patient failed swallow eval multiple times. Per nurse was unsuccessful placing NG tube. Patient had Dobbhoff placed by ICU nurse. Patient tolerating tube feeds. Surgery consulted for PEG tube. was discussed with his son and daughter as well as other physicians and the family about PEG tube placement. Subjective is at bedside. Per patient is doing much better in terms of mentation. Underwent video swallow study today and this was normal. PO diet is now encouraged. Will have to have multi-disciplinary discussion regarding need for enteral feeding via dobhoff. 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 Psych -slightly confused Assessment and plan Acute toxic metabolic encephalopathy Urinary tract infection with lower abdominal pain Septic shock with elevated lactic acid, tachycardia and leukocytosis. urine culture positive for klebsiella ornithinolgtica Blood cultures negative Peritoneal fluid culture is also negative Continue with meropenem renally dosed at 1g every 24 hours. Infectious disease on board Continue lactated Ringer's 100 cc an hour Patient had EEG done that showed no epileptiform activity but showed findings consistent with moderate encephalopathy. CT head showed no acute process. Appreciate neurology consult Discontinue morphine and use Tylenol as needed for pain One-to-one sitter Severe hypokalemia on admission Potassium this morning is 2.8 Will give 30 mmol of IV potassium phosphate Severe malnutrition Patient failed speech eval multiple times Speech therapy to reevaluate the patient Dobbhoff placed and patient started on tube feeds. Patient currently at 12 cc an hour. Increase very gradually. Trend phosphorus levels to monitor for refeeding syndrome. This morning phosphorus level is 1.9. Patient will be given 30 mmol of IV potassium phosphate GI consulted for PEG tube placement. still undecided about PEG tube and wants to discuss with other family members who are doctors. General surgery consult appreciated Fluoxetine cannot be discontinued suddenly so will defer to PCP outpatient to ta per it off. Amitiza was started by gastroenterology so we will have patient follow-up with gastroenterology outpatient. I agree with surgery that we can reduce the dose of the Protonix from twice daily to daily. Acute blood loss anemia I suspect this is dilutional. There is no overt signs of bleeding. Hemoglobin this morning is stable at 8.4 Continue to monitor CBC Hypovolemic hyponatremia Dehydration Resolved Generalized weakness PT OT consult ESRD on PD Metabolic acidosis Neurology on board and managing dialysis Metabolic acidosis has resolved. Patient now off bicarb drip Liver cirrhosis seen on CT scan Elevated LFTs Outpatient workup with gastroenterology. At this time patient does not show any signs of decompensated liver cirrhosis. Okay for Tylenol up to 4 g daily. LFTs are stable Hypertension Blood pressure is on the low side so we will hold off on BP meds Coronary artery disease Status post cardiac stent Continue with aspirin 81 mg p.o. daily Hold atorvastatin due to elevated LFTs Hold off on metoprolol due to low blood pressure. Chronic systolic heart failure Patient currently appears hypovolemic Will hold off on diuretics and beta-velasquez for now due to low blood pressure Mild nondisplaced pelvic fractures Patient was here in the ED 2 weeks ago and was evaluated by orthopedic surgery who said no surgical intervention. Anxiety and depression Continue with Prozac 40 mg p.o. daily, Requip 0.25 mg p.o. at bedtime DVT prophylaxis: Hold subcu heparin due to acute blood loss anemia CODE STATUS: DNR/DNI Objective - Vital Signs Vital signs: Vital Signs Temp 98.2 F 09/27/24 16:00 Pulse 90 09/27/24 16:00 Resp 18 09/27/24 16:00 BP 105/58 09/27/24 16:00 Pulse Ox 99 09/27/24 16:00 FiO2 Intake & Output 09/26/24 09/27/24 09/27/24 18:59 06:59 18:59 Output Total 4800 Balance -4800 Weight 57.5 kg 57.5 kg Output: Other 4800 Other: Voiding Method CAPD CAPD CAPD # Bowel Movements 1 1 - Labs CBC & Chem 7: 09/27/24 05:56 09/27/24 05:56 Labs: Abnormal Lab Results - Last 24 Hours (Table) 09/27/24 09/27/24 09/27/24 Range/Units 00:19 05:56 05:56 WBC 14.5 H (3.8-10.6) k/uL RBC 2.64 L (3.80-5.40) m/uL Hgb 8.6 L (11.4-16.0) gm/dL Hct 27.0 L (34.0-46.0) % MCV 102.3 H (80.0-100.0) fL RDW 17.3 H (11.5-15.5) % Neutrophils # 12.0 H (1.3-7.7) k/uL Lymphocytes # 0.8 L (1.0-4.8) k/uL Sodium 130 L (137-145) mmol/L Potassium 2.8 L (3.5-5.1) mmol/L Chloride 96 L (98-107) mmol/L Carbon Dioxide 31 H (22-30) mmol/L BUN 20 H (7-17) mg/dL Creatinine 3.04 H (0.52-1.04) mg/dL Glucose 116 H (74-99) mg/dL POC Glucose (mg/dL) 114 H (70-110) mg/dL Calcium 7.7 L (8.4-10.2) mg/dL Phosphorus 2.4 L (2.5-4.5) mg/dL Iron (50-170) UG/DL TIBC (228-460) UG/DL Transferrin (204.0-354.0) mg/dL Ferritin (10.0-291.0) ng/mL 09/27/24 09/27/24 Range/Units 05:56 06:01 WBC (3.8-10.6) k/uL RBC (3.80-5.40) m/uL Hgb (11.4-16.0) gm/dL Hct (34.0-46.0) % MCV (80.0-100.0) fL RDW (11.5-15.5) % Neutrophils # (1.3-7.7) k/uL Lymphocytes # (1.0-4.8) k/uL Sodium (137-145) mmol/L Potassium (3.5-5.1) mmol/L Chloride (98-107) mmol/L Carbon Dioxide (22-30) mmol/L BUN (7-17) mg/dL Creatinine (0.52-1.04) mg/dL Glucose (74-99) mg/dL POC Glucose (mg/dL) 130 H (70-110) mg/dL Calcium (8.4-10.2) mg/dL Phosphorus (2.5-4.5) mg/dL Iron 18 L (50-170) UG/DL TIBC 66 L (228-460) UG/DL Transferrin 47.0 L (204.0-354.0) mg/dL Ferritin 2655.0 H (10.0-291.0) ng/mL Microbiology - Last 24 Hours (Table) 09/21/24 20:41 Blood Culture - Final Blood 09/21/24 18:43 Blood Culture - Final Blood
[2024-09-28 07:29] LABS: African American GFR (CKD) 16 (>60 ml/min/1.73 sqM); Anion Gap 1 mmol/L; Blood Urea Nitrogen 23 mg/dL (7-17); Carbon Dioxide 35 mmol/L (22-30); Chloride 94 mmol/L (98-107); Glucose 98 mg/dL (74-99); Magnesium 1.5 mg/dL (1.6-2.3); Non-African American GFR(CKD) 14 (>60 ml/min/1.73 sqM); Phosphorus 2.7 mg/dL (2.5-4.5); Potassium 3.8 mmol/L (3.5-5.1); Sodium 130 mmol/L (137-145)
--- NOTE | 2024-09-28 10:05 | P.PN ---
Subjective Patient is seen in follow-up for end-stage renal disease. She is maintained on peritoneal dialysis. Now on pured diet. Potassium better. Vital signs are stable. General: No acute distress. HEENT: NG tube noted. LUNGS: No audible rhonchi or wheezes. HEART: Rate and Rhythm are regular. Cut the ABDOMEN: Nontender. EXTREMITITES: 1+ edema. Objective - Vital Signs Vital signs: Vital Signs Temp 98.4 F 09/28/24 03:52 Pulse 111 H 09/28/24 03:52 Resp 16 09/28/24 03:52 BP 104/65 09/28/24 03:52 Pulse Ox 99 09/28/24 03:52 FiO2 Intake & Output 09/27/24 09/28/24 09/28/24 18:59 06:59 18:59 Intake Total 30 Output Total 4800 Balance -4800 30 Weight 57.5 kg 52.6 kg Intake: IV 30 Invasive Line 3 30 Output: Other 4800 Other: Voiding Method CAPD CAPD # Bowel Movements 1 - Labs CBC & Chem 7: 09/27/24 05:56 09/28/24 06:56 Labs: Abnormal Lab Results - Last 24 Hours (Table) 09/27/24 09/27/24 09/28/24 Range/Units 05:56 18:04 06:56 Sodium 130 L (137-145) mmol/L Chloride 94 L (98-107) mmol/L Carbon Dioxide 35 H (22-30) mmol/L BUN 23 H (7-17) mg/dL Creatinine 3.07 H (0.52-1.04) mg/dL POC Glucose (mg/dL) 127 H (70-110) mg/dL Calcium 8.0 L (8.4-10.2) mg/dL Magnesium 1.5 L (1.6-2.3) mg/dL Iron 18 L (50-170) UG/DL TIBC 66 L (228-460) UG/DL Transferrin 47.0 L (204.0-354.0) mg/dL Ferritin 2655.0 H (10.0-291.0) ng/mL Assessment and Plan Plan: Assessment: 1. End-stage renal disease maintained on peritoneal dialysis. 2. Volume overload. Improving with ultrafiltration. 3. Hypokalemia from poor intake. Replaced. Better. 4. Hypervolemic hyponatremia. Stable. 5. Dysphagia. Passed swallow study September 27, 2024. Now on pured diet. 6. Coronary artery disease. 7. Klebsiella UTI on antibiotics. No evidence of peritonitis. Plan: Maintain PD exchanges with 2.5% dextrose solution. Replace potassium. Increase magnesium oxide to 1 tab twice daily. Encouraged protein intake. Case discussed with patient and family present at bedside.
--- NOTE | 2024-09-28 10:47 | P.PN ---
Subjective Progress Note Date: 09/28/24 SURGICAL PROGRESS NOTE CHIEF COMPLAINT: Gastrostomy tube evaluation HISTORY OF PRESENT ILLNESS: The patient is a 79-year-old female presents with urinary tract infection, intractable nausea and vomiting, unintentional weight loss, underweight BMI 13.3 include end-stage renal disease on dialysis. [facility] ed barium swallow completed yesterday with no evidence of aspiration. Speech therapy did proceed with a pured nectar thick diet. Per nursing staff patient did eat a few bites of lunch and dinner yesterday. No nausea or vomiting. Dobbhoff in place and tube feeds currently on hold. Patient is getting peritoneal dialysis this morning. Afebrile. Tachycardic. PHYSICAL EXAM: VITAL SIGNS: Reviewed. GENERAL: in no acute distress. ABDOMEN: Soft. Nondistended. Nontender. NEUROLOGIC: Alert and oriented. Cranial nerves II through XII grossly intact. ASSESSMENT: 1. Aspiration per swallow study. Repeat MBS showed no aspiration 2. Intractable nausea and vomiting 3. Severe protein malnutrition 4. Underweight, BMI 13.3 5. End-stage renal disease peritoneal dialysis dependent 6. Liver cirrhosis 7. Urinary tract infection 8. Hyponatremia 9. Hypokalemia PLAN: -Continue pured diet -Continue to monitor patient's oral intake -Tube feeds currently on hold -Further recommendations forthcoming regarding possible PEG tube placement for nutritional support Physician [employer] note has been reviewed by physician. Signing provider agrees with the documented findings, assessment, and plan of care. I have personally seen and examined the patient, reviewed the SHADING PAINTER /PAs history, exam and MDM and agree with the assessment and plan as written. Based on total visit time, I have performed more than 50% of the visit. As above: Patient tolerating diet without evidence of aspiration however oral intake remains poor. Patient remains on peritoneal dialysis. Confusion persist. Family leaning towards PEG tube placement at this time. Apparently they are also requesting rehab placement. Apparently rehab is not able to perform peritoneal dialysis at this time. This would necessitate hemodialysis. Patient's family plans to discuss further with nephrology at this time. On standby for PEG tube placement. Objective - Vital Signs Vital signs: Vital Signs Temp 98.4 F 09/28/24 03:52 Pulse 111 H 09/28/24 03:52 Resp 16 09/28/24 03:52 BP 104/65 09/28/24 03:52 Pulse Ox 99 09/28/24 03:52 FiO2 Intake & Output 09/27/24 09/28/24 09/28/24 18:59 06:59 18:59 Intake Total 30 Output Total 4800 Balance -4800 30 Weight 57.5 kg 52.6 kg Intake: IV 30 Invasive Line 3 30 Output: Other 4800 Other: Voiding Method CAPD CAPD # Bowel Movements 1 - Labs CBC & Chem 7: 09/27/24 05:56 09/28/24 06:56 Labs: Abnormal Lab Results - Last 24 Hours (Table) 09/27/24 09/27/24 09/28/24 Range/Units 05:56 18:04 06:56 Sodium 130 L (137-145) mmol/L Chloride 94 L (98-107) mmol/L Carbon Dioxide 35 H (22-30) mmol/L BUN 23 H (7-17) mg/dL Creatinine 3.07 H (0.52-1.04) mg/dL POC Glucose (mg/dL) 127 H (70-110) mg/dL Calcium 8.0 L (8.4-10.2) mg/dL Magnesium 1.5 L (1.6-2.3) mg/dL Iron 18 L (50-170) UG/DL TIBC 66 L (228-460) UG/DL Transferrin 47.0 L (204.0-354.0) mg/dL Ferritin 2655.0 H (10.0-291.0) ng/mL
[2024-09-28] MEDS: MAGNESIUM OXIDE 400 MG TAB PO SCH (11:09)
[2024-09-28] MEDS: POTASSIUM CHLORIDE ER 20 MEQ TAB.ER PO STA (11:09)
[2024-09-28] MEDS ORDERED: Magnesium Replacement Protocol 1 EACH MISC MISCELLANE PRN (11:20)
[2024-09-28] MEDS: MAGNESIUM SULFATE-D5W PMX 1 GM in DEXTROSE/WATER 1 100ML.BAG IVPB SCH (12:51)
[2024-09-28] MEDS: POTASSIUM BICARBONATE/CIT AC 20 MEQ TABLET.EFF PO ONE (12:51)
--- NOTE | 2024-09-28 14:54 | P.PN ---
Subjective Progress Note Date: 09/27/24 Principal diagnosis: Reason for follow-up is leukocytosis/UTI/possible peritonitis Patient is a 79-year-old female with a past medical history coronary disease heart failure with reflux hypertension hyperlipidemia osteoarthritis end-stage renal disease on peritoneal dialysis patient has been brought to the hospital concerning for right lower quadrant abdominal pain CT abdominal pelvis did not show any acute abnormality concerning for possible UTI versus PD cath associated peritonitis. On today's evaluation that is 09/27/2024, patient has been afebrile, patient is breathing comfortably and is currently on room air, patient is more awake and alert denies any chest pain shortness of breath or cough no abdominal pain no diarrhea. Patient white count is down to 14.5, creatinine 3.04 Objective - Vital Signs Vital signs: Vital Signs Temp 98.3 F 09/27/24 04:52 Pulse 110 H 09/27/24 08:00 Resp 16 09/27/24 08:00 BP 113/69 09/27/24 08:00 Pulse Ox 99 09/27/24 08:00 FiO2 Intake & Output 09/26/24 09/27/24 09/27/24 18:59 06:59 18:59 Weight 57.5 kg Other: Voiding Method CAPD CAPD # Bowel Movements 1 - Exam GENERAL DESCRIPTION: An elderly female lying in bed in no distress RESPIRATORY SYSTEM: Unlabored breathing , decreased breath sounds at bases HEART: S1 S2 regular rate and rhythm , ABDOMEN: Soft , no tenderness EXTREMITIES: No edema feet - Labs CBC & Chem 7: 09/27/24 05:56 09/28/24 06:56 Labs: Abnormal Lab Results - Last 24 Hours (Table) 09/26/24 09/26/24 09/26/24 Range/Units 11:21 11:35 11:35 WBC 16.8 H (3.8-10.6) k/uL RBC 2.49 L (3.80-5.40) m/uL Hgb 8.4 L (11.4-16.0) gm/dL Hct 25.7 L (34.0-46.0) % MCV 103.3 H (80.0-100.0) fL RDW 17.5 H (11.5-15.5) % Neutrophils # (1.3-7.7) k/uL Lymphocytes # (1.0-4.8) k/uL Sodium 129 L (137-145) mmol/L Potassium 3.4 L (3.5-5.1) mmol/L Chloride 97 L (98-107) mmol/L Carbon Dioxide 33 H (22-30) mmol/L BUN 21 H (7-17) mg/dL Creatinine 3.30 H (0.52-1.04) mg/dL Glucose 110 H (74-99) mg/dL POC Glucose (mg/dL) 125 H (70-110) mg/dL Calcium 8.0 L (8.4-10.2) mg/dL Phosphorus 1.9 L (2.5-4.5) mg/dL 09/27/24 09/27/24 09/27/24 Range/Units 00:19 05:56 05:56 WBC 14.5 H (3.8-10.6) k/uL RBC 2.64 L (3.80-5.40) m/uL Hgb 8.6 L (11.4-16.0) gm/dL Hct 27.0 L (34.0-46.0) % MCV 102.3 H (80.0-100.0) fL RDW 17.3 H (11.5-15.5) % Neutrophils # 12.0 H (1.3-7.7) k/uL Lymphocytes # 0.8 L (1.0-4.8) k/uL Sodium 130 L (137-145) mmol/L Potassium 2.8 L (3.5-5.1) mmol/L Chloride 96 L (98-107) mmol/L Carbon Dioxide 31 H (22-30) mmol/L BUN 20 H (7-17) mg/dL Creatinine 3.04 H (0.52-1.04) mg/dL Glucose 116 H (74-99) mg/dL POC Glucose (mg/dL) 114 H (70-110) mg/dL Calcium 7.7 L (8.4-10.2) mg/dL Phosphorus 2.4 L (2.5-4.5) mg/dL 09/27/24 Range/Units 06:01 WBC (3.8-10.6) k/uL RBC (3.80-5.40) m/uL Hgb (11.4-16.0) gm/dL Hct (34.0-46.0) % MCV (80.0-100.0) fL RDW (11.5-15.5) % Neutrophils # (1.3-7.7) k/uL Lymphocytes # (1.0-4.8) k/uL Sodium (137-145) mmol/L Potassium (3.5-5.1) mmol/L Chloride (98-107) mmol/L Carbon Dioxide (22-30) mmol/L BUN (7-17) mg/dL Creatinine (0.52-1.04) mg/dL Glucose (74-99) mg/dL POC Glucose (mg/dL) 130 H (70-110) mg/dL Calcium (8.4-10.2) mg/dL Phosphorus (2.5-4.5) mg/dL Microbiology - Last 24 Hours (Table) 09/21/24 20:41 Blood Culture - Final Blood 09/21/24 18:43 Blood Culture - Final Blood 09/22/24 13:11 Gram Stain - Final Peritoneal Fluid Body Fluid Culture - Final Assessment and Plan (1) Sepsis Current Visit: Yes Status: Acute Code(s): A41.9 - SEPSIS, UNSPECIFIED ORGANISM SNOMED Code(s): 19065805 (2) UTI (urinary tract infection) Current Visit: Yes Status: Acute Code(s): N39.0 - URINARY TRACT INFECTION, SITE NOT SPECIFIED SNOMED Code(s): 98142654 (3) Allergy to multiple antibiotics Current Visit: No Status: Acute Code(s): Z88.1 - ALLERGY STATUS TO OTHER ANTIBIOTIC AGENTS SNOMED Code(s): 722601251 Plan: 1patient presented to hospital with abdominal pain to the right lower quadrant area in this patient who did have a history of end-stage disease on peritoneal dialysis with a question of PD catheter associated peritonitis versus UTI the patient still makes urine he did have significantly positive UA and urine cultures came back positive with Klebsiella, peritoneal culture negative 2patient with multiple antibiotic ALLERGIES that would limit the number of antibiotic safe to use 3-patient is afebrile white count is trending down urine is positive for Klebsiella that is not an ESBL however the patient did have multiple antibiotic allergies including to cephalexin family was not clear about the type of reaction we will continue with the meropenem Dictation was produced using [employer] dictation software. please excuse any gram matical, word or spelling errors. Time with Patient: Less than 30
--- NOTE | 2024-09-28 14:55 | P.PN ---
Subjective Progress Note Date: 09/28/24 Principal diagnosis: Reason for follow-up is leukocytosis/UTI/possible peritonitis Patient is a 79-year-old female with a past medical history coronary disease heart failure with reflux hypertension hyperlipidemia osteoarthritis end-stage renal disease on peritoneal dialysis patient has been brought to the hospital concerning for right lower quadrant abdominal pain CT abdominal pelvis did not show any acute abnormality concerning for possible UTI versus PD cath associated peritonitis. On today's evaluation that is 09/28/2024, Patient is afebrile this morning gianni ent is breathing comfortably on room air in no distress patient is currently sleepy and the mention she did not have a good night sleep last night and did not want to be disturbed no vomiting or diarrhea has been reported. Patient did have a creatinine of 3.07 no CBC was done today Objective - Vital Signs Vital signs: Vital Signs Temp 98.2 F 09/28/24 10:00 Pulse 122 H 09/28/24 12:00 Resp 16 09/28/24 12:00 BP 93/69 09/28/24 12:00 Pulse Ox 95 09/28/24 12:00 FiO2 Intake & Output 09/27/24 09/28/24 09/28/24 18:59 06:59 18:59 Intake Total 30 Output Total 4800 Balance -4800 30 Weight 57.5 kg 52.6 kg Intake: IV 30 Invasive Line 3 30 Output: Other 4800 Other: Voiding Method CAPD CAPD Diaper CAPD # Bowel Movements 1 - Exam GENERAL DESCRIPTION: An elderly female lying in bed in no distress RESPIRATORY SYSTEM: Unlabored breathing , decreased breath sounds at bases HEART: S1 S2 regular rate and rhythm , ABDOMEN: Soft , no tenderness EXTREMITIES: No edema feet - Labs CBC & Chem 7: 09/27/24 05:56 09/28/24 06:56 Labs: Abnormal Lab Results - Last 24 Hours (Table) 09/27/24 09/27/24 09/28/24 Range/Units 05:56 18:04 06:56 Sodium 130 L (137-145) mmol/L Chloride 94 L (98-107) mmol/L Carbon Dioxide 35 H (22-30) mmol/L BUN 23 H (7-17) mg/dL Creatinine 3.07 H (0.52-1.04) mg/dL POC Glucose (mg/dL) 127 H (70-110) mg/dL Calcium 8.0 L (8.4-10.2) mg/dL Magnesium 1.5 L (1.6-2.3) mg/dL Iron 18 L (50-170) UG/DL TIBC 66 L (228-460) UG/DL Transferrin 47.0 L (204.0-354.0) mg/dL Ferritin 2655.0 H (10.0-291.0) ng/mL Assessment and Plan (1) Sepsis Current Visit: Yes Status: Acute Code(s): A41.9 - SEPSIS, UNSPECIFIED ORGANISM SNOMED Code(s): 32827455 (2) UTI (urinary tract infection) Current Visit: Yes Status: Acute Code(s): N39.0 - URINARY TRACT INFECTION, SITE NOT SPECIFIED SNOMED Code(s): 97999359 (3) Allergy to multiple antibiotics Current Visit: No Status: Acute Code(s): Z88.1 - ALLERGY STATUS TO OTHER ANTIBIOTIC AGENTS SNOMED Code(s): 614552944 Plan: 1patient presented to hospital with abdominal pain to the right lower quadrant area in this patient who did have a history of end-stage disease on peritoneal dialysis with a question of PD catheter associated peritonitis versus UTI the patient still makes urine he did have significantly positive UA and urine cultures came back positive with Klebsiella, peritoneal culture negative 2patient with multiple antibiotic ALLERGIES that would limit the number of antibiotic safe to use 3-patient is afebrile white count is trending down as of yesterday no CBC was done today urine is positive for Klebsiella that is not an ESBL however the patient did have multiple antibiotic allergies including to cephalexin family was not clear about the type of reaction 4we will continue with the meropenem while inpatient and monitor clinical course closely Dictation was produced using [employer] dictation software. please excuse any grammatical, word or spelling errors. Time with Patient: Less than 30
[2024-09-28 16:56] LABS: Glucose,Whole Blood 134 mg/dL (70-110)
--- NOTE | 2024-09-28 17:23 | P.PN ---
Subjective Progress Note Date: 09/28/24 Hospital course Patient is a 79-year-old female with a past medical history of end-stage renal disease on peritoneal dialysis, chronic systolic heart failure, hypertension, hyperlipidemia, coronary artery disease status post stent placement who presents to the ED with weakness and pain. Patient is a poor historian. I obtained history from daughter who is at bedside and is a pathologist. Per daughter 2 weeks ago patient had a fall and since then has been declining. Daughter states that patient has been eating and drinking less is not able to swallow her potassium pills. Patient has also been getting more confused. Patient prior to the fall was able to complete all her daily activities. Per daughter as baseline patient can walk around with minimal assistance with just holding the hand of her . She only requires some assistance with putting on her clothes. Now patient can barely stand up and requires two-person assistance. When I asked the patient where she has pain she touched her right lower abdomen. In the ED WBC 12.7, potassium 2.5, lactic acid 4.0, albumin 1.9, UA showed large leukocyte esterase and [address] abdomen pelvis showed nodular contour to the liver suggestive of hepatic cirrhosis with ascites. Patient also found to have left superior and inferior pubic rami fractures with mild displacement. Patient was referred to the medicine service for admission. Nephrology was consulted for peritoneal dialysis. Infectious disease was consulted due to history of multiple allergies as well as drug-resistant bacteria. Neurology was consulted due to worsening mental status. Patient's lactic acid was increasing so pulmonology was consulted for septic shock. Pulmonology recommended to resuscitate the patient. Patient given boluses of fluids. Her lactic acid then started to trend down. Patient's urine culture was positive for klebsiella ornithinolgtica. Patient currently on meropenem. Infectious disease following and managing antibiotics. Mental status is not improving. Patient failed swallow eval multiple times. Per nurse was unsuccessful placing NG tube. Patient had Dobbhoff placed by ICU nurse. Patient tolerating tube feeds. Surgery consulted for PEG tube. was discussed with his son and daughter as well as other physicians and the family about PEG tube placement. Subjective Discussed case with surgery and nephrology today, then had [facility] conversation with family today. Given multiple medical co-morbidities, they are curious about the utility of palliative care/hospice. We are going to consult hospice for an informational visit. Deferring PEG tube and vascular access for iHD at this time. Physical exam General examination -elderly frail lady, ill-appearing, AO x 3 Heart - + S1S2 no murmurs Lungs -diminished breath sounds bilaterally Abdomen soft NT ND +ve BS Extremities - bilateral 3-4+ edema RECOVERY ANALYST -patient following simple commands. Psych -slightly confused Assessment and plan Acute toxic metabolic encephalopathy Urinary tract infection with lower abdominal pain Septic shock with elevated lactic acid, tachycardia and leukocytosis. urine culture positive for klebsiella ornithinolgtica Blood cultures negative Peritoneal fluid culture is also negative Continue with meropenem renally dosed at 1g every 24 hours. Infectious disease on board Continue lactated Ringer's 100 cc an hour Patient had EEG done that showed no epileptiform activity but showed findings consistent with moderate encephalopathy. CT head showed no acute process. Appreciate neurology consult Discontinue morphine and use Tylenol as needed for pain One-to-one sitter Severe hypokalemia on admission Potassium this morning is 2.8 Will give 30 mmol of IV potassium phosphate Severe malnutrition Patient failed speech eval multiple times Speech therapy to reevaluate the patient Dobbhoff placed and patient started on tube feeds. Patient currently at 12 cc an hour. Increase very gradually. Trend phosphorus levels to monitor for refeeding syndrome. This morning phosphorus level is 1.9. Patient will be given 30 mmol of IV potassium phosphate GI consulted for PEG tube placement. still undecided about PEG tube and wants to discuss with other family members who are doctors. General surgery consult appreciated Fluoxetine cannot be discontinued suddenly so will defer to PCP outpatient to taper it off. Amitiza was started by gastroenterology so we will have patient follow-up with gastroenterology outpatient. I agree with surgery that we can reduce the dose of the Protonix from twice daily to daily. Acute blood loss anemia I suspect this is dilutional. There is no overt signs of bleeding. Hemoglobin this morning is stable at 8.4 Continue to monitor CBC Hypovolemic hyponatremia Dehydration Resolved Generalized weakness PT OT consult ESRD on PD Metabolic acidosis Nephrology on board and managing dialysis Metabolic acidosis has resolved. Patient now off bicarb drip Liver cirrhosis seen on CT scan Elevated LFTs Outpatient workup with gastroenterology. At this time patient does not show any signs of decompensated liver cirrhosis. Okay for Tylenol up to 4 g daily. LFTs are stable Hypertension Blood pressure is on the low side so we will hold off on BP meds Coronary artery disease Status post cardiac stent Continue with aspirin 81 mg p.o. daily Hold atorvastatin due to elevated LFTs Hold off on metoprolol due to low blood pressure. Chronic systolic heart failure Patient currently appears hypovolemic Will hold off on diuretics and beta-velasquez for now due to low blood pressure Mild nondisplaced pelvic fractures Patient was here in the ED 2 weeks ago and was evaluated by orthopedic surgery who said no surgical intervention. Anxiety and depression Continue with Prozac 40 mg p.o. daily, Requip 0.25 mg p.o. at bedtime DVT prophylaxis: Hold subcu heparin due to acute blood loss anemia CODE STATUS: DNR/DNI Objective - Vital Signs Vital signs: Vital Signs Temp 98.1 F 09/28/24 15:53 Pulse 122 H 09/28/24 15:53 Resp 16 09/28/24 15:53 BP 118/74 09/28/24 15:53 Pulse Ox 96 09/28/24 15:53 FiO2 Intake & Output 09/27/24 09/28/24 09/28/24 18:59 06:59 18:59 Intake Total 30 240 Output Total 4800 Balance -4800 30 240 Weight 57.5 kg 52.6 kg Intake: IV 30 Invasive Line 3 30 Oral 240 Output: Other 4800 Other: Voiding Method CAPD CAPD Diaper CAPD # Voids 1 # Bowel Movements 1 1 - Labs CBC & Chem 7: 09/27/24 05:56 09/28/24 06:56 Labs: Abnormal Lab Results - Last 24 Hours (Table) 09/27/24 09/28/24 09/28/24 Range/Units 18:04 06:56 16:55 Sodium 130 L (137-145) mmol/L Chloride 94 L (98-107) mmol/L Carbon Dioxide 35 H (22-30) mmol/L BUN 23 H (7-17) mg/dL Creatinine 3.07 H (0.52-1.04) mg/dL POC Glucose (mg/dL) 127 H 134 H (70-110) mg/dL Calcium 8.0 L (8.4-10.2) mg/dL Magnesium 1.5 L (1.6-2.3) mg/dL
--- NOTE | 2024-09-28 18:15 | P.PN ---
Subjective Progress Note Date: 09/28/24 This is an 79-year-old female patient with a known history of degenerative joint disease, myocardial infarction, coronary artery disease with previous stent placement, congestive heart failure, gastroesophageal reflux disease, hypertension, end-stage renal disease peritoneal dialysis, hyperlipidemia who presented here to the emergency room yesterday with complaints of abdominal pain altered mental status. Count 16.1. Hemoglobin 10.0. Platelets 329. Sodium 133. Potassium 3.5. Bicarb 14. BUN 31. Creatinine 6.01. Glucose 123. Lactic acid 5.6, 4.6. AST 109. ALT 36. Alk phos 464. Lipase 121. Urinalysis turbid with many bacteria. CT scan of the abdomen and pelvis revealed no acute abdominal process. Some nodular contour of the liver suggestive of hepatic cirrhosis with ascites. Peritoneal dialysis catheter within the right abdomen. Small left pleural effusion. Colonic diverticulosis. Left superior and inferior pubic rami fractures with mild displacement. She is seen today in consultation in the emergency department. She is being considered for ICU placement. She is altered. Obtunded. Poor historian. Unclear of her baseline status. She is currently afebrile. Hemodynamically stable. On 2 L nasal cannula with O2 saturations up to 98%. Received 1 L of fluid resuscitation. Currently on lactated Ringer's at 100 mL/h. She has been initiated on meropenem. She has been initiated on D5W with 3 A of bicarb at 80 mL/h. Heparin for DVT prophylaxis. Blood and urine culture pending. Peritoneal fluid cultures pending. Progress note dated September 23, 2024. 79-year-old female that we saw in the emergency department yesterday, for hypotension, and sepsis. The patient appears to have a urinary tract infection. She is a DO NOT RESUSCITATE patient. She is seen today in room 367. She continues on oxygen, 4 L by nasal cannula. The patient is a chemical code only, no CPR, and the patient is not to be intubated. She is getting lactated Ringer's at 100 cc an hour, meropenem, and D5W with 3 ampoules of sodium bicarb and then 80 cc an hour. Her urine reveals evidence of gram-negative bacilli. White count is 24, hemoglobin 9.2, hematocrit 28.5, platelet count 264,000. Sodium 132, potassium 2.5, chlorides 99, CO2 25, BUN 27, creatinine 4.84. Her most recent lactic acid is 4.8. AST is 214. ALT is 61. Ammonia levels 10. Albumin is 1.6. Progress note dated September 24, 2024. 79-year-old female seen today in room 367. The patient's daughter is in the room. 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 The patient's urine analysis, showed evidence of Klebsiella. She continues on meropenem. She is on 2 L of oxygen. She is receiving lactated Ringer's at 100 cc an hour. The patient is much more alert and awake today. She is a DO NOT RESUSCITATE patient. Current labs include a white count 17.4, hemoglobin 8.8, hematocrit 27, and a platelet count of 3-43,000. Sodium 133, potassium 3.2, chloride 99, CO2 33, BUN is 24, creatinine is 3.90. Albumin is 1.5. TSH is normal. Progress note dated September 25, 2024. 79-year-old female seen today in room 367. She was initially seen in the emergency department. She was admitted with a diagnosis of sepsis, likely from a urinary source. The patient is doing better. She is much more awake and alert. She is on 2 L of oxygen. She is getting lactated Ringer's at 100 cc an hour. White count of 16, hemoglobin 8.4, hematocrit 25.5, and platelet count 182,000. Sodium 131, potassium 2.8, chlorides 98, CO2 32, BUN 22, and creatinine 3.57. The patient's calcium is 7.8. Phosphorus is 2.5. Urine cul ture was positive for Klebsiella. Chest x-ray from yesterday shows scattered infiltrates to the left lung and right lower lobe. Progress note dated September 26, 2024. 79-year-old female seen today in room 367. She is resting comfortably. She is on 2 L of oxygen. She continues on meropenem for her Klebsiella urinary tract infection/urosepsis. She is getting lactated Ringer's at 100 cc an hour. Family members are at the bedside. White count 16 point 0.4, hematocrit 25.7, and platelet counts normal. Glucose 125. On 09/27/2024, I am seeing the patient for a follow-up. The patient is cu rrently on 2 L of oxygen by nasal cannula. Awake and alert and communicating. Profoundly weak. She continues to receive enteral feeding for nutritional support. The patient had difficulties with swallowing due to her generalized debility and the patient has an NG tube and the patient is receiving Nepro at rate of 12 cc an hour. The patient remains on broad-spectrum antibiotics and the patient is currently on IV meropenem for a Klebsiella urinary tract infection. The abdominal fluid was negative for any microbial growth. The patient undergoes peritoneal dialysis on a daily basis. Hemodynamically stable. Currently on 2 L of oxygen nasal cannula with a pulse ox of 99%. White cell count down to 14.5 with a hemoglobin 8.6 and a platelet count of 226. BUN is 20 with a creatinine of 3.04 and sodium is at 130 and a potassium level is at 2.8 which is being replaced. Blood sugars at 130. No other significant events overnight. The patient had a modified barium swallow today and this turned out to be a normal study. Most recent chest x-ray from 09/24/2024 showed scattered infiltrates in the left and right lower lobe. On 09/28/2024, patient is sitting up in a chair. Her swallow is still not adequate and she was unable to complete a full swallow evaluation. Based on that, the patient still has a Dobbhoff catheter and she continues to receive enteral feeding for nutritional support. The family is considering the possibility of a PEG tube insertion. This may be essentially a complicated process as the patient also undergoes peritoneal dialysis. She remains on IV meropenem. Oxygen requirements are room air O2 with a pulse ox of 96%. BUN 23 with a creatinine of 3.07 and sodium levels at 130. Patient is chronically debilitated and weak and she is having some episodes of confusion. Objective - Vital Signs Vital signs: Vital Signs Temp 98.2 F 09/28/24 10:00 Pulse 125 H 09/28/24 10:00 Resp 18 09/28/24 10:00 BP 105/40 09/28/24 10:00 Pulse Ox 98 09/28/24 10:00 FiO2 Intake & Output 09/27/24 09/28/24 09/28/24 18:59 06:59 18:59 Intake Total 30 Output Total 4800 Balance -4800 30 Weight 57.5 kg 52.6 kg Intake: IV 30 Invasive Line 3 30 Output: Other 4800 Other: Voiding Method CAPD CAPD Diaper CAPD # Bowel Movements 1 - Exam The patient is more awake and alert. The patient is able to speak in full sentences. The patient continues on room air oxygen. The patient has a Dobbhoff catheter in place for enteral feeding and nutritional support. HEENT examination is grossly unremarkable. Neck supple. Full range of motion. No adenopathy thyromegaly or neck vein distention. Cardiovascular examination reveals regular rhythm rate. S1-S2 normal. No S3 or S4. No discernible murmur noted. Lungs reveal scattered rhonchi. No wheezes or crackles. Abdomen soft bowel sounds are heard. No masses or tenderness. The patient has a peritoneal catheter in place. No direct tenderness rebound tenderness or guarding Extremities are intact. No cyanosis clubbing or edema. Skin is without rash or lesion. Neurologic examination is brief but nonfocal. Generalized profound weakness in all 4 extremities, global generalized weakness in all 4 extremities. Occasional confusion. - Labs CBC & Chem 7: 09/27/24 05:56 09/28/24 06:56 Labs: Abnormal Lab Results - Last 24 Hours (Table) 09/27/24 09/27/24 09/28/24 Range/Units 05:56 18:04 06:56 Sodium 130 L (137-145) mmol/L Chloride 94 L (98-107) mmol/L Carbon Dioxide 35 H (22-30) mmol/L BUN 23 H (7-17) mg/dL Creatinine 3.07 H (0.52-1.04) mg/dL POC Glucose (mg/dL) 127 H (70-110) mg/dL Calcium 8.0 L (8.4-10.2) mg/dL Magnesium 1.5 L (1.6-2.3) mg/dL Iron 18 L (50-170) UG/DL TIBC 66 L (228-460) UG/DL Transferrin 47.0 L (204.0-354.0) mg/dL Ferritin 2655.0 H (10.0-291.0) ng/mL Assessment and Plan Plan: Altered mental status suspect secondary to sepsis suspect secondary to Klebsiella urinary tract infection. Improved neurologically and the patient is able to communicate. Family is at the bedside. No focal neurological deficits. This is most likely metabolic encephalopathy following a gram-negative urinary tract infection. Occasional confusion still present. The patient is significant debilitated and profoundly weak. Dysphagia , receiving enteral nutrition via an NG tube for nutritional support and the patient is currently on Nepro. Swallow evaluation was repeated and the patient had a normal swallow. Nevertheless, this was not an adequate study as the patient was unable to complete the testing. As such, the patient is still receiving enteral feeding for nutritional support. Urinary tract infection, secondary to Klebsiella species. The patient is currently on IV meropenem Acute sepsis secondary to above requiring fluid resuscitation. Hemodynamically stable Leukocytosis, improving End-stage renal disease on peritoneal dialysis Coronary artery disease with previous stent placement. History of congestive heart failure. Degenerative joint disease. Gastroesophageal reflux disease. History of hypertension. Hyperlipidemia. Plan: Clinically stable Mental status gradually improving Continue IV meropenem Continue peritoneal dialysis Hemodynamically stable Consider PEG tube insertion and further discussion will be done along with ge neral surgery, Aspiration precautions DNR/DNI CODE STATUS Will continue to follow
[2024-09-28 20:30] LABS: Glucose,Whole Blood 101 mg/dL (70-110)
--- NOTE | 2024-09-29 00:03 | P.CONS ---
History of Present Illness - Reason for Consult Consult date: 09/28/24 - History of Present Illness Patient is a 79-year-old female with a past medical history of end-stage renal disease on peritoneal dialysis, systolic heart failure, hypertension, HLD, CAD s/p stent placement who presented to the ED with weakness and pain. At home, she lives with her in a single story home with ramp entry. Daughter stops in daily and assists as needed. Prior to recent pelvic fx patient was independent with ambulation, needing some assist with lower body ADLs. drives. Her health reportedly started to decline shortly after being started on dialysis where she developed intractable nausea with vomiting. Patient presented acutely with severe hyponatremia, sodium 128 with confusion. WBC was elevated 12,000, potassium was severely low 2.8 with acute elevation of LFTs. Due to patient's malnutrition, Dobbhoff tube was placed for nutrition and medications. EEG + encephalopathy, CTH neg. Patient failed swallow eval multiple times however 09/27 she did MBSS with recs for nectar thick and pureed food with small bites/precautions. However due to decreased intake she is still being considered for PEG. She reports still having some nausea and stomach upset. Per family, she has had decline since her pelvic fracture. PMR consulted for rehab recs. She has not been seen by PT/OT. Past Medical History Past Medical History: Coronary Artery Disease (CAD), Heart Failure, Eye Disorder, GERD/Reflux, GI Bleed, Hyperlipidemia, Hypertension, Myocardial Infarction (NH), Musculoskeletal Disorder, Osteoarthritis (OA), Renal Disease Additional Past Medical History / Comment(s): anemia-iron deficiency, chronic kidney disease stage V- on CAPD, diverticular disease, osteoporosis, cataract, hiatal hernia, ischemic cardiomyopathy, bilateral renal nodules, UTIs Last Myocardial Infarction Date:: 11/27/22 History of Any Multi-Drug Resistant Organisms: ESBL Year Discovered:: 10/23/23 ESBL E.coli MDRO Source:: Urine Past Surgical History: Heart Catheterization With Stent, Orthopedic Surgery, Tonsillectomy, Tubal Ligation Additional Past Surgical History / Comment(s): removal ovaries, bilateral cataract removal with lens implants, cervical spinal fusion, cervical steroid injection, PCI Past Anesthesia/Blood Transfusion Reactions: No Reported Reaction Additional Past Anesthesia/Blood Transfusion Reaction / Comm: N/A Date of Last Stent Placement:: 11/27/22 Past Psychological History: Anxiety Smoking Status: Former smoker - Past Family History Mother Family Medical History: Osteoarthritis (OA) Additional Family Medical History / Comment(s): Sister(s) Family Medical History: Cancer Additional Family Medical History / Comment(s): breast cancer Father Family Medical History: No Reported History Additional Family Medical History / Comment(s): Brother(s) Family Medical History: Osteoarthritis (OA) Daughter(s) Family Medical History: No Reported History Son(s) Family Medical History: No Reported History Medications and Allergies Home Medications Medication Instructions Recorded Confirmed Type Famotidine [Pepcid] 20 mg PO DAILY 02/26/20 09/21/24 History Atorvastatin [Lipitor] 40 mg PO DAILY 01/03/23 09/21/24 History Cholecalciferol [Vitamin D3 (25 25 mcg PO DAILY 01/03/23 09/21/24 History Mcg = 1000 Iu)] Metoprolol Succinate [Toprol XL] 50 mg PO HS 01/03/23 09/21/24 History calcitrioL 0.25 mcg PO MOTH 01/03/23 09/21/24 History Aspirin EC [Ecotrin Low Dose] 81 mg PO DAILY 02/13/23 09/21/24 History FLUoxetine HCL 40 mg PO DAILY 10/23/23 09/21/24 History Folic Acid/Vit B Complex and C 0.8 mg PO DAILY 10/23/23 09/21/24 History [Nephro-Trang Tablet] Magnesium Oxide [Mag-Ox] 400 mg PO MOTUWETHFR@2100 10/23/23 09/21/24 History Pantoprazole [Protonix] 40 mg PO BID 10/23/23 09/21/24 History Potassium Chloride ER [K-Dur 10] 10 meq PO DAILY 10/23/23 09/21/24 History Gentamicin 0.1% Cream 1 applic TOPICAL DAILY 04/10/24 09/21/24 History Calcium Acetate [PhosLo] 1,334 mg PO TID-W/MEALS 04/11/24 09/21/24 History Ondansetron Odt [Zofran ODT] 4 mg PO Q6HR PRN 04/11/24 09/21/24 History Calcium Acetate [Phoslo] 667 mg PO DAILY PRN 09/21/24 09/21/24 History Lubiprostone [Amitiza] 8 mcg PO BID 09/21/24 09/21/24 History Metoclopramide [Reglan] 5 mg PO AC-TID 09/21/24 09/21/24 History rOPINIRole HCL [Requip] 0.25 mg PO HS 09/21/24 09/22/24 History Allergies Allergy/AdvReac Type Severity Reaction Status Date / Time celecoxib [From Celebrex] Allergy Rash/Hives Verified 09/21/24 15:43 cephalexin [From Keflex] Allergy Unknown Verified 09/21/24 15:43 nitrofurantoin Allergy Rash all Verified 09/21/24 15:43 [From Macrobid] over nitrofurantoin Allergy Rash all Verified 09/21/24 15:43 macrocrystalline over [From Macrobid] sulfamethoxazole Allergy Face Verified 09/21/24 15:43 [From Bactrim] swelling trimethoprim [From Bactrim] Allergy Face Verified 09/21/24 15:43 swelling Physical Exam Vitals: Vital Signs Temp Pulse Pulse Resp BP BP Pulse Ox 09/28/24 03:52 98.4 F 111 H 16 104/65 99 09/27/24 23:00 98 F 129 H 16 102/73 100 09/27/24 22:30 98 F 128 H 17 99/70 100 09/27/24 20:15 97.6 F 127 H 16 93/59 99 09/27/24 16:00 98.2 F 90 18 105/58 99 09/27/24 12:00 99 18 97/58 100 Intake and Output 09/27/24 09/28/24 09/28/24 22:59 06:59 14:59 Intake Total 10 20 Output Total 2500 Balance -2490 20 Intake: IV 10 20 Invasive Line 3 10 20 Output: Other 2500 Other: Voiding Method CAPD CAPD Weight 52.6 kg General: Female, thin, elderly, fatigued, in recliner; family at bedside HEENT: +NG tube Cardiovascular: 2-3+ pitting edema BLLE Respiratory: Even and unlabored breathing on RA/O2 Abdomen: Soft, nontender, nondistended; bowel sounds active Genitourinary: Musculoskeletal: 4/4 b/l upper extremities, b/l KE 4-, b/l DF 4- Neurological: Alert and oriented x 1-2. CN II-XII: Grossly intact. Speech is clear, fluent Skin: ashen color skin Psychiatric: Mood calm, affect appropriate, cooperative Results CBC & Chem 7: 09/27/24 05:56 09/28/24 06:56 Labs: Abnormal Lab Results - Last 24 Hours (Table) 09/27/24 09/27/24 09/28/24 Range/Units 05:56 18:04 06:56 Sodium 130 L (137-145) mmol/L Chloride 94 L (98-107) mmol/L Carbon Dioxide 35 H (22-30) mmol/L BUN 23 H (7-17) mg/dL Creatinine 3.07 H (0.52-1.04) mg/dL POC Glucose (mg/dL) 127 H (70-110) mg/dL Calcium 8.0 L (8.4-10.2) mg/dL Magnesium 1.5 L (1.6-2.3) mg/dL Iron 18 L (50-170) UG/DL TIBC 66 L (228-460) UG/DL Transferrin 47.0 L (204.0-354.0) mg/dL Ferritin 2655.0 H (10.0-291.0) ng/mL Microbiology - Last 24 Hours (Table) 09/21/24 20:41 Blood Culture - Final Blood 09/21/24 18:43 Blood Culture - Final Blood Assessment and Plan Assessment: #Critical illness myopathy #Debility and metabolic encephalopathy secondary to Klebsiella Urosepsis -Patient significantly below baseline -PT/OT evals when patient able Dysphagia Protein calorie malnutrition -repeat MBSS recommends pureed with nectar liquids,inspector water pollution control continue to follow; surg on consult for possible peg if required Hepatic cirrhosis with ascites -f/u GI outpatient Pubic rami fractures from fall 2 weeks prior -no surgical mgmt, pain mgmt Dispo: She is currently too low level of tolerance for IPR; family agrees. She has not yet been eval'ed by PT/OT; if she improves clinically and physically becomes able to tolerate a more intense rehab course of 3h therapy /day then can re-consider for IPR; at this time recommend JB.
[2024-09-29 00:26] LABS: Glucose,Whole Blood 108 mg/dL (70-110)
[2024-09-29 06:00] LABS: Glucose,Whole Blood 132 mg/dL (70-110)
[2024-09-29 07:50] LABS: African American GFR (CKD) 17 (>60 ml/min/1.73 sqM); Anion Gap 0 mmol/L; Blood Urea Nitrogen 26 mg/dL (7-17); Calcium 8.2 mg/dL (8.4-10.2); Carbon Dioxide 33 mmol/L (22-30); Chloride 94 mmol/L (98-107); Glucose 96 mg/dL (74-99); Magnesium 2.3 mg/dL (1.6-2.3); Non-African American GFR(CKD) 15 (>60 ml/min/1.73 sqM); Potassium 3.6 mmol/L (3.5-5.1); Sodium 127 mmol/L (137-145)
[2024-09-29 11:05] VITALS: BMI 21.5
--- NOTE | 2024-09-29 11:23 | P.PN ---
Subjective Patient is seen in follow-up for end-stage renal disease. She is maintained on peritoneal dialysis. Now on pured diet. Also receiving tube feeds. Hospice evaluation today. Vital signs are stable. General: No acute distress. HEENT: NG tube noted. LUNGS: No audible rhonchi or wheezes. HEART: Rate and Rhythm are regular. ABDOMEN: Nontender. EXTREMITITES: 1+ edema. Objective - Vital Signs Vital signs: Vital Signs Temp 97.7 F 09/29/24 10:00 Pulse 110 H 09/29/24 10:00 Resp 16 09/29/24 10:00 BP 116/72 09/29/24 10:00 Pulse Ox 98 09/29/24 10:00 FiO2 Intake & Output 09/28/24 09/29/24 09/29/24 18:59 06:59 18:59 Intake Total 240 40 Balance 240 40 Weight 50 kg 50 kg Intake: IV 40 Invasive Line 3 20 Invasive Line 5 20 Oral 240 Other: Voiding Method Diaper Diaper Diaper CAPD CAPD CAPD # Voids 1 # Bowel Movements 1 - Labs CBC & Chem 7: 09/27/24 05:56 09/29/24 07:13 Labs: Abnormal Lab Results - Last 24 Hours (Table) 09/28/24 09/29/24 09/29/24 Range/Units 16:55 05:59 07:13 Sodium 127 L (137-145) mmol/L Chloride 94 L (98-107) mmol/L Carbon Dioxide 33 H (22-30) mmol/L BUN 26 H (7-17) mg/dL Creatinine 2.84 H (0.52-1.04) mg/dL POC Glucose (mg/dL) 134 H 132 H (70-110) mg/dL Calcium 8.2 L (8.4-10.2) mg/dL Assessment and Plan Plan: Assessment: 1. End-stage renal disease maintained on peritoneal dialysis. 2. Volume overload. Improving with ultrafiltration. 3. Hypokalemia from poor intake. Being replaced. 4. Hypervolemic hyponatremia. 5. Dysphagia. Passed swallow study September 27, 2024. Now on pured diet. Still receiving tube feeds. 6. Coronary artery disease. 7. Klebsiella UTI on antibiotics. No evidence of peritonitis. 8. Hypomagnesemia from poor intake. On oral magnesium oxide. Plan: Maintain PD exchanges with 2.5% dextrose solution. Replace potassium. Encouraged protein intake. Case discussed with patient and family present at bedside. Hospice evaluation today. Discussed high risk of infection, including peritonitis, if PEG tube placed while doing peritoneal dialysis. Transitioning to hemodialysis was also discussed.
[2024-09-29] MEDS: POTASSIUM CHLORIDE ER 20 MEQ TAB.ER PO STA (11:49)
[2024-09-29 11:50] LABS: Glucose,Whole Blood 107 mg/dL (70-110)
--- NOTE | 2024-09-29 13:16 | P.PN ---
Subjective Progress Note Date: 09/29/24 Hospital course Patient is a 79-year-old female with a past medical history of end-stage renal d isease on peritoneal dialysis, chronic systolic heart failure, hypertension, hyperlipidemia, coronary artery disease status post stent placement who presents to the ED with weakness and pain. Patient is a poor historian. Per daughter 2 weeks ago patient had a fall and since then has been declining. Daughter states that patient has been eating and drinking less is not able to swallow her potassium pills. Patient has also been getting more confused. Patient prior to the fall was able to complete all her daily activities. Per daughter as baseline patient can walk around with minimal assistance with just holding the hand of her . She only requires some assistance with putting on her clothes. Now patient can barely stand up and requires two-person assistance. When I asked the patient where she has pain she touched her right lower abdomen. In the ED WBC 12.7, potassium 2.5, lactic acid 4.0, albumin 1.9, UA showed large leukocyte esterase and [address] abdomen pelvis showed nodular contour to the liver suggestive of hepatic cirrhosis with ascites. Patient also found to have left superior and inferior pubic rami fractures with mild displacement. Patient was referred to the medicine service for admission. Nephrology was consulted for peritoneal dialysis. Infectious disease was consulted due to history of multiple allergies as well as drug-resistant bacteria. Neurology was consulted due to worsening mental status. Patient's lactic acid was increasing so pulmonology was consulted for septic shock. Pulmonology recommended to resuscitate the patient. Patient given boluses of fluids. Her lactic acid then started to trend down. Patient's urine culture was positive for klebsiella ornithinolgtica. Patient currently on meropenem. Infectious disease following and managing antibiotics. Mental status is not improving. Patient failed swallow eval multiple times. Per nurse was unsuccessful placing NG tube. Patient had Dobbhoff placed by ICU nurse. Patient tolerating tube feeds. Surgery consulted for PEG tube. was discussed with his son and daughter as well as other physicians and the family about PEG tube placement. Currently discussing further goals of care. Hospice consulted for informational visit. Subjective Patient seen and examined at bedside. No acute events overnight. Sitter at bedside. 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 Psych -slightly confused Assessment and plan Acute toxic metabolic encephalopathy Urinary tract infection with lower abdominal pain Septic shock with elevated lactic acid, resolved Leukocytosis -urine culture positive for klebsiella ornithinolgtica -Blood cultures negative -Peritoneal fluid culture is also negative -Continue with meropenem renally dosed at 1g every 24 hours. Infectious disease on board -Patient had EEG done that showed no epileptiform activity but showed findings consistent with moderate encephalopathy. CT head showed no acute process. Neurology following -use Tylenol as needed for pain -One-to-one sitter Severe hypokalemia on admission -Potassium this morning is 3.6 -20 mEq potassium given today by nephrology Severe protein calorie malnutrition -Dobbhoff tube in place, continue tube feeds -General Surgery following, possible PEG tube depending on further goals of care discussion -Monitor for refeeding syndrome Fluoxetine cannot be discontinued suddenly so will defer to PCP outpatient to taper it off. Amitiza was started by gastroenterology so we will have patient follow-up with gastroenterology outpatient. I agree with surgery that we can reduce the dose of the Protonix from twice daily to daily. Anemia, blood loss versus acute illness -No signs of bleeding, continue to monitor CBC Generalized weakness PT OT consult ESRD on PD Hypervolemic hyponatremia -Nephrology on board and managing dialysis -Metabolic acidosis has resolved. Patient now off bicarb drip Liver cirrhosis seen on CT scan Elevated LFTs -Outpatient workup with gastroenterology. At this time patient does not show any signs of decompensated liver cirrhosis. -Okay for Tylenol up to 3 g daily. -LFTs are stable Hypertension -Blood pressure is on the low side so we will hold off on BP meds Coronary artery disease Status post cardiac stent -Continue with aspirin 81 mg p.o. daily -Hold atorvastatin due to elevated LFTs -Hold off on metoprolol due to low blood pressure. Chronic systolic heart failure with mild hypervolemia -Continue dialysis Mild nondisplaced pelvic fractures -Patient was here in the ED 2 weeks ago and was evaluated by orthopedic surgery who said no surgical intervention. Anxiety and depression -Continue with Prozac 40 mg p.o. daily, Requip 0.25 mg p.o. at bedtime DVT prophylaxis: Hold subcu heparin due to acute blood loss anemia CODE STATUS: DNR/DNI Objective - Vital Signs Vital signs: Vital Signs Temp 97.7 F 09/29/24 10:00 Pulse 112 H 09/29/24 12:00 Resp 16 09/29/24 12:00 BP 112/75 09/29/24 12:00 Pulse Ox 97 09/29/24 12:00 FiO2 Intake & Output 09/28/24 09/29/24 09/29/24 18:59 06:59 18:59 Intake Total 240 40 Balance 240 40 Weight 50 kg 50 kg Intake: IV 40 Invasive Line 3 20 Invasive Line 5 20 Oral 240 Other: Voiding Method Diaper Diaper Diaper CAPD CAPD CAPD # Voids 1 # Bowel Movements 1 - Labs CBC & Chem 7: 09/27/24 05:56 09/29/24 07:13 Labs: Abnormal Lab Results - Last 24 Hours (Table) 09/28/24 09/29/24 09/29/24 Range/Units 16:55 05:59 07:13 Sodium 127 L (137-145) mmol/L Chloride 94 L (98-107) mmol/L Carbon Dioxide 33 H (22-30) mmol/L BUN 26 H (7-17) mg/dL Creatinine 2.84 H (0.52-1.04) mg/dL POC Glucose (mg/dL) 134 H 132 H (70-110) mg/dL Calcium 8.2 L (8.4-10.2) mg/dL
--- NOTE | 2024-09-29 13:19 | P.PN ---
Subjective Progress Note Date: 09/29/24 SURGICAL PROGRESS NOTE CHIEF COMPLAINT: Gastrostomy tube evaluation HISTORY OF PRESENT ILLNESS: The patient is a 79-year-old female presents with urinary tract infection, intractable nausea and vomiting, unintentional weight loss, underweight BMI 13.3 include end-stage renal disease on dialysis. [facility] ed barium swallow completed yesterday with no evidence of aspiration. Speech therapy did proceed with a pured nectar thick diet. Patient's oral intake remains poor. She was restarted on tube feeds via the Dobbhoff tube. Family has a meeting with hospice today. PHYSICAL EXAM: VITAL SIGNS: Reviewed. GENERAL: in no acute distress. ABDOMEN: Soft. Nondistended. Nontender. NEUROLOGIC: Alert and oriented. Cranial nerves II through XII grossly intact. ASSESSMENT: 1. Aspiration per swallow study. Repeat MBS showed no aspiration 2. Intractable nausea and vomiting 3. Severe protein malnutrition 4. Underweight, BMI 13.3 5. End-stage renal disease peritoneal dialysis dependent 6. Liver cirrhosis 7. Urinary tract infection 8. Hyponatremia 9. Hypokalemia PLAN: -Surgical service will remain on standby for possible PEG tube placement -Family has hospice meeting today. Will await their decision Physician Elementary Math Tutor note has been reviewed by physician. Signing provider agrees with the documented findings, assessment, and plan of care. Objective - Vital Signs Vital signs: Vital Signs Temp 97.7 F 09/29/24 10:00 Pulse 112 H 09/29/24 12:00 Resp 16 09/29/24 12:00 BP 112/75 09/29/24 12:00 Pulse Ox 97 09/29/24 12:00 FiO2 Intake & Output 09/28/24 09/29/24 09/29/24 18:59 06:59 18:59 Intake Total 240 40 Balance 240 40 Weight 50 kg 50 kg Intake: IV 40 Invasive Line 3 20 Invasive Line 5 20 Oral 240 Other: Voiding Method Diaper Diaper Diaper CAPD CAPD CAPD # Voids 1 # Bowel Movements 1 - Labs CBC & Chem 7: 09/27/24 05:56 09/29/24 07:13 Labs: Abnormal Lab Results - Last 24 Hours (Table) 09/28/24 09/29/24 09/29/24 Range/Units 16:55 05:59 07:13 Sodium 127 L (137-145) mmol/L Chloride 94 L (98-107) mmol/L Carbon Dioxide 33 H (22-30) mmol/L BUN 26 H (7-17) mg/dL Creatinine 2.84 H (0.52-1.04) mg/dL POC Glucose (mg/dL) 134 H 132 H (70-110) mg/dL Calcium 8.2 L (8.4-10.2) mg/dL
[2024-09-29 16:31] LABS: Glucose,Whole Blood 123 mg/dL (70-110)
[2024-09-30 00:18] LABS: Glucose,Whole Blood 114 mg/dL (70-110)
[2024-09-30 06:25] LABS: Glucose,Whole Blood 125 mg/dL (70-110)
--- NOTE | 2024-09-30 08:30 | P.PN ---
Subjective Progress Note Date: 09/29/24 Principal diagnosis: Reason for follow-up is leukocytosis/UTI/possible peritonitis Patient is a 79-year-old female with a past medical history coronary disease heart failure with reflux hypertension hyperlipidemia osteoarthritis end-stage renal disease on peritoneal dialysis patient has been brought to the hospital concerning for right lower quadrant abdominal pain CT abdominal pelvis did not show any acute abnormality concerning for possible UTI versus PD cath associated peritonitis. On today's evaluation that is 09/29/2024,the patient denies any fever or any ch ills, patient is breathing comfortably on room air, the patient denies chest pain shortness of breath and no significant cough, patient denies abdominal pain, no nausea vomiting or diarrhea. Mention feeling slightly better. Patient did have a creatinine of 2.84 no CBC was done today blood culture remains to be negative peritoneal fluid culture negative Objective - Vital Signs Vital signs: Vital Signs Temp 97.7 F 09/29/24 10:00 Pulse 110 H 09/29/24 10:00 Resp 16 09/29/24 10:00 BP 116/72 09/29/24 10:00 Pulse Ox 98 09/29/24 10:00 FiO2 Intake & Output 09/28/24 09/29/24 09/29/24 18:59 06:59 18:59 Intake Total 240 40 Balance 240 40 Weight 50 kg Intake: IV 40 Invasive Line 3 20 Invasive Line 5 20 Oral 240 Other: Voiding Method Diaper Diaper CAPD CAPD # Voids 1 # Bowel Movements 1 - Exam GENERAL DESCRIPTION: An elderly female lying in bed in no distress RESPIRATORY SYSTEM: Unlabored breathing , decreased breath sounds at bases HEART: S1 S2 regular rate and rhythm , ABDOMEN: Soft , no tenderness EXTREMITIES: No edema feet - Labs CBC & Chem 7: 09/27/24 05:56 09/29/24 07:13 Labs: Abnormal Lab Results - Last 24 Hours (Table) 09/28/24 09/29/24 09/29/24 Range/Units 16:55 05:59 07:13 Sodium 127 L (137-145) mmol/L Chloride 94 L (98-107) mmol/L Carbon Dioxide 33 H (22-30) mmol/L BUN 26 H (7-17) mg/dL Creatinine 2.84 H (0.52-1.04) mg/dL POC Glucose (mg/dL) 134 H 132 H (70-110) mg/dL Calcium 8.2 L (8.4-10.2) mg/dL Assessment and Plan (1) Sepsis Current Visit: Yes Status: Acute Code(s): A41.9 - SEPSIS, UNSPECIFIED ORGANISM SNOMED Code(s): 73493048 (2) UTI (urinary tract infection) Current Visit: Yes Status: Acute Code(s): N39.0 - URINARY TRACT INFECTION, SITE NOT SPECIFIED SNOMED Code(s): 38812638 (3) Allergy to multiple antibiotics Current Visit: No Status: Acute Code(s): Z88.1 - ALLERGY STATUS TO OTHER ANTIBIOTIC AGENTS SNOMED Code(s): 580587233 Plan: 1patient presented to hospital with abdominal pain to the right lower quadrant area in this patient who did have a history of end-stage disease on peritoneal dialysis with a question of PD catheter associated peritonitis versus UTI the patient still makes urine he did have significantly positive UA and urine cultures came back positive with Klebsiella, peritoneal culture negative 2patient with multiple antibiotic ALLERGIES that would limit the number of antibiotic safe to use 3-patient is afebrile, no CBC was done today, the patient urine is positive for Klebsiella that is not an ESBL however the patient did have multiple antibiotic allergies including to cephalexin family was not clear about the type of reaction 4patient will be treated with meropenem while inpatient and continue with supportive care Dictation was produced using [employer] dictation software. please excuse any grammatical, word or spelling errors. Time with Patient: Less than 30
--- NOTE | 2024-09-30 09:44 | P.CNNES ---
History of Present Illness Consult date: 09/30/24 Reason for Consult: Altered mental status in the hospital in setting of declining memory proble Chief complaint: From : "My has had memory problems for a year." History of Present Illness: Ms. Paiz is an 79-year-old female with past medical history of end- stage renal disease on hemodialysis as well as congestive heart failure, hypertension, hyperlipidemia, coronary artery disease, gastroesophageal reflux disease, GI bleed, musculoskeletal issue, iron deficiency anemia, diverticulosis, who was admitted to [facility] on September 21 as she was having episodes of weakness as well as pain and altered mental status. She fell at home 2 weeks prior and appear to be declining in terms of her overall function. She was not eating or drinking nutrition but prior to this she had been performing ADLs fairly well. Although she did need mild assistance from her . She has been noted to be malnourished and it has been noted that while in house her mental status does not appear to be improving. Neurology was consulted to assist with a possible diagnosis of dementia. I spoke with the patient's who has been with her for many years. He notes that she developed some memory problems approximately 1 year ago and these would exacerbate when she would go into the hospital however they would improve and completely when she left the hospital. She appears to have had a declining course of her overall status functional status, but this exacerbated rapidly prior to the patient's current admission. She has not been evaluated by any physician for dementia; however, her daughter is a pathologist and has noticed changes as well. The medicine team is considering hospice discharge for the patient and the appears in line with this; therefore, neurology has been consulted to consider a diagnosis of dementia which may aid this process. Review of Systems The patient is a difficult to get to respond in full phrases. However she denied pain at this time. ROS unobtainable: due to mental status Past Medical History Past Medical History: Coronary Artery Disease (CAD), Heart Failure, Eye Disorder, GERD/Reflux, GI Bleed, Hyperlipidemia, Hypertension, Myocardial Infarction ([place]), Musculoskeletal Disorder, Osteoarthritis (OA), Renal Disease Additional Past Medical History / Comment(s): anemia-iron deficiency, chronic kidney disease stage V- on CAPD, diverticular disease, osteoporosis, cataract, hiatal hernia, ischemic cardiomyopathy, bilateral renal nodules, UTIs Last Myocardial Infarction Date:: 11/27/22 History of Any Multi-Drug Resistant Organisms: ESBL Date of last positivie culture/infection: 10/23/23 ESBL E.coli MDRO Source:: Urine Past Surgical History: Heart Catheterization With Stent, Orthopedic Surgery, Ton sillectomy, Tubal Ligation Additional Past Surgical History / Comment(s): removal ovaries, bilateral cataract removal with lens implants, cervical spinal fusion, cervical steroid injection, PCI Past Anesthesia/Blood Transfusion Reactions: No Reported Reaction Additional Past Anesthesia/Blood Transfusion Reaction / Comment(s): N/A Date of Last Stent Placement:: 11/27/22 Past Psychological History: Anxiety Smoking Status: Former smoker - Past Family History Mother Family Medical History: Osteoarthritis (OA) Additional Family Medical History / Comment(s): Sister(s) Family Medical History: Cancer Additional Family Medical History / Comment(s): breast cancer Father Family Medical History: No Reported History Additional Family Medical History / Comment(s): Brother(s) Family Medical History: Osteoarthritis (OA) Daughter(s) Family Medical History: No Reported History Son(s) Family Medical History: No Reported History Medications and Allergies Home Medications Medication Instructions Recorded Confirmed Type Famotidine [Pepcid] 20 mg PO DAILY 02/26/20 09/21/24 History Atorvastatin [Lipitor] 40 mg PO DAILY 01/03/23 09/21/24 History Cholecalciferol [Vitamin D3 (25 25 mcg PO DAILY 01/03/23 09/21/24 History Mcg = 1000 Iu)] Metoprolol Succinate [Toprol XL] 50 mg PO HS 01/03/23 09/21/24 History calcitrioL 0.25 mcg PO MOTH 01/03/23 09/21/24 History Aspirin EC [Ecotrin Low Dose] 81 mg PO DAILY 02/13/23 09/21/24 History FLUoxetine HCL 40 mg PO DAILY 10/23/23 09/21/24 History Folic Acid/Vit B Complex and C 0.8 mg PO DAILY 10/23/23 09/21/24 History [Nephro-Trang Tablet] Magnesium Oxide [Mag-Ox] 400 mg PO MOTUWETHFR@2100 10/23/23 09/21/24 History Pantoprazole [Protonix] 40 mg PO BID 10/23/23 09/21/24 History Potassium Chloride ER [K-Dur 10] 10 meq PO DAILY 10/23/23 09/21/24 History Gentamicin 0.1% Cream 1 applic TOPICAL DAILY 04/10/24 09/21/24 History Calcium Acetate [PhosLo] 1,334 mg PO TID-W/MEALS 04/11/24 09/21/24 History Ondansetron Odt [Zofran ODT] 4 mg PO Q6HR PRN 04/11/24 09/21/24 History Calcium Acetate [Phoslo] 667 mg PO DAILY PRN 09/21/24 09/21/24 History Lubiprostone [Amitiza] 8 mcg PO BID 09/21/24 09/21/24 History Metoclopramide [Reglan] 5 mg PO AC-TID 09/21/24 09/21/24 History rOPINIRole HCL [Requip] 0.25 mg PO HS 09/21/24 09/22/24 History Allergies Allergy/AdvReac Type Severity Reaction Status Date / Time celecoxib [From Celebrex] Allergy Rash/Hives Verified 09/21/24 15:43 cephalexin [From Keflex] Allergy Unknown Verified 09/21/24 15:43 nitrofurantoin Allergy Rash all Verified 09/21/24 15:43 [From Macrobid] over nitrofurantoin Allergy Rash all Verified 09/21/24 15:43 macrocrystalline over [From Macrobid] sulfamethoxazole Allergy Face Verified 09/21/24 15:43 [From Bactrim] swelling trimethoprim [From Bactrim] Allergy Face Verified 09/21/24 15:43 swelling Physical Examination - Vital Signs Vital Signs: Vital Signs Temp Pulse Pulse Resp BP BP BP 09/30/24 08:15 97.8 F 115 H 14 108/69 09/30/24 05:12 97.8 F 102 H 16 107/60 09/29/24 23:38 115 H 16 100/61 09/29/24 19:57 98.1 F 114 H 16 119/82 09/29/24 16:00 97.5 F L 115 H 115 H 16 121/83 121/83 09/29/24 12:00 112 H 16 112/75 09/29/24 10:00 97.7 F 110 H 16 116/72 Pulse Ox 09/30/24 08:15 94 L 09/30/24 05:12 96 09/29/24 23:38 95 09/29/24 19:57 96 09/29/24 16:00 98 09/29/24 12:00 97 09/29/24 10:00 98 Intake and Output 09/29/24 09/30/24 09/30/24 22:59 06:59 14:59 Intake Total 240 279 Balance 240 279 Intake: Oral 240 Tube Feeding 279 Other: Voiding Method Diaper Diaper CAPD CAPD # Bowel Movements 2 Weight 50 kg Her mental status was assessed somewhat informally as she could not complete a full Mini-Mental status evaluation. The patient is sleepy but arousable. She will answer in short sentences. She was not aware she was in the hospital nor was she aware to the date. She referred to her as "mery" which has been a familiar name between them, but she could not recall his actual name at first. When asked again have at about 5 minutes at or after she called him "Dimitry". His name is Max and this is an appropriate appellation. She would follow simple commands such as point to the ceiling and the floor, but she could not follow complex commands such as point to the ceiling after the floor." She could name a tie but not a watch when shown to her. I could not get her to participate with serial 7 exam or drawing at this time. - Constitutional General appearance: disheveled - EENT EENT: PERRL, hearing intact, vision intact - Respiratory Respiratory: chest non-tender, lungs clear, normal breath sounds - Cardiovascular Cardiovascular: regular rate, no murmurs Extremities: no peripheral edema bilaterally - Gastrointestinal Gastrointestinal: normoactive bowel sounds, non-tender - Integumentary Integumentary: normal - Neurologic Cranial nerve examination: PERRL, EOMI, face symmetric, tongue midline Speech examination: other (Patient answers in short sentences, however she does not appear to have any gross evidence of aphasia.) Sensorimotor examination: intact Detailed motor examination: other (Patient was able to raise both arms with equal strength and no arm rolling deficit. She would not lift her legs to com nathalie and when her legs were held in the air they did fall back to the bed.) Detailed sensory examination: intact Reflex and gait examination: other (Flexes were 1+ and symmetric bilaterally with plantar responses downgoing bilaterally.) Results Pertinent laboratory results from the patient's admission include vitamin B12 level from September 23 of 812 and TSH from September 23 of 3.18. Serum ammonia was ordered last night and came back less than 9. Her current white blood cell count is slightly elevated at 14.5 and her creatinine is 3.4. Urinalysis on September 21 revealed 110 white blood cells with large leukocyte esterase. 8 sample of dialysate from September 25 revealed clear fluid without evidence of white blood cells. She had an electroencephalogram done early during her admission which revealed some background slowing at 5 to 6 Hz but no epileptiform discharges. Barium swallow revealed a no evidence of significant aspiration and a CT of the head noncontrast from September 23 revealed only white matter disease without acute or chronic infarct. - Laboratory Findings CBC and BMP: 09/27/24 05:56 09/29/24 07:13 Abnormal Lab Findings: Abnormal Labs 09/21/24 09/21/24 09/21/24 14:07 14:07 14:07 WBC 12.7 H RBC 3.24 L Hgb 10.3 L Hct 32.1 L MCV MCH RDW 17.7 H Plt Count 481 H Neutrophils # 10.4 H Neutrophils # (Manual) Lymphocytes # Sodium 128 L Potassium 2.5 L* Chloride 91 L Carbon Dioxide BUN 28 H Creatinine 5.20 H Glucose 107 H POC Glucose (mg/dL) Plasma Lactic Acid Omar 4.0 H* Calcium Phosphorus Magnesium Iron TIBC Transferrin Ferritin AST 109 H ALT 36 H Alkaline Phosphatase 464 H Total Protein 5.1 L Albumin 1.9 L Amylase <30 L Urine Appearance Urine Protein Urine Glucose (UA) Urine Blood Urine Bilirubin Ur Leukocyte Esterase Urine WBC Urine Bacteria 09/21/24 09/21/24 09/21/24 14:52 17:28 20:41 WBC RBC Hgb Hct MCV MCH RDW Plt Count Neutrophils # Neutrophils # (Manual) Lymphocytes # Sodium Potassium Chloride Carbon Dioxide BUN Creatinine Glucose POC Glucose (mg/dL) Plasma Lactic Acid Moar 4.5 H* 3.4 H* Calcium Phosphorus Magnesium Iron TIBC Transferrin Ferritin AST ALT Alkaline Phosphatase Total Protein Albumin Amylase Urine Appearance Turbid H Urine Protein 1+ H Urine Glucose (UA) Trace H Urine Blood Small H Urine Bilirubin 1+ H Ur Leukocyte Esterase Large H Urine WBC 110 H Urine Bacteria Many H 09/21/24 09/22/24 09/22/24 23:24 03:44 06:50 WBC 16.1 H RBC 2.83 L Hgb 10.0 L Hct 28.3 L MCV 100.1 H MCH 35.5 H RDW 18.2 H Plt Count Neutrophils # 13.8 H Neutrophils # (Manual) Lymphocytes # Sodium Potassium Chloride Carbon Dioxide BUN Creatinine Glucose POC Glucose (mg/dL) Plasma Lactic Acid Omar 3.5 H* 5.0 H* Calcium Phosphorus Magnesium Iron TIBC Transferrin Ferritin AST ALT Alkaline Phosphatase Total Protein Albumin Amylase Urine Appearance Urine Protein Urine Glucose (UA) Urine Blood Urine Bilirubin Ur Leukocyte Esterase Urine WBC Urine Bacteria 09/22/24 09/22/24 09/22/24 06:50 06:50 11:19 WBC RBC Hgb Hct MCV MCH RDW Plt Count Neutrophils # Neutrophils # (Manual) Lymphocytes # Sodium 133 L Potassium Chloride Carbon Dioxide 14 L BUN 31 H Creatinine 6.01 H Glucose 123 H POC Glucose (mg/dL) Plasma Lactic Acid Omar 5.6 H* 4.6 H* Calcium Phosphorus Magnesium Iron TIBC Transferrin Ferritin AST ALT Alkaline Phosphatase Total Protein Albumin Amylase Urine Appearance Urine Protein Urine Glucose (UA) Urine Blood Urine Bilirubin Ur Leukocyte Esterase Urine WBC Urine Bacteria 09/22/24 09/23/24 09/23/24 15:24 00:05 04:01 WBC RBC Hgb Hct MCV MCH RDW Plt Count Neutrophils # Neutrophils # (Manual) Lymphocytes # Sodium Potassium Chloride Carbon Dioxide BUN Creatinine Glucose POC Glucose (mg/dL) Plasma Lactic Acid Omar 4.5 H* 5.8 H* 8.6 H* Calcium Phosphorus Magnesium Iron TIBC Transferrin Ferritin AST ALT Alkaline Phosphatase Total Protein Albumin Amylase Urine Appearance Urine Protein Urine Glucose (UA) Urine Blood Urine Bilirubin Ur Leukocyte Esterase Urine WBC Urine Bacteria 09/23/24 09/23/24 09/23/24 06:14 08:53 08:53 WBC 24.0 H RBC 2.84 L Hgb 9.2 L Hct 28.5 L MCV 100.4 H MCH RDW 18.8 H Plt Count Neutrophils # Neutrophils # (Manual) 21.60 H Lymphocytes # Sodium 132 L Potassium 2.5 L* Chloride Carbon Dioxide BUN 27 H Creatinine 4.84 H Glucose 101 H POC Glucose (mg/dL) 131 H Plasma Lactic Acid Omar Calcium Phosphorus Magnesium Iron TIBC Transferrin Ferritin AST 214 H ALT 61 H Alkaline Phosphatase 338 H Total Protein 4.3 L Albumin 1.6 L Amylase Urine Appearance Urine Protein Urine Glucose (UA) Urine Blood Urine Bilirubin Ur Leukocyte Esterase Urine WBC Urine Bacteria 09/23/24 09/23/24 09/23/24 09:19 12:10 15:42 WBC RBC Hgb Hct MCV MCH RDW Plt Count Neutrophils # Neutrophils # (Manual) Lymphocytes # Sodium Potassium Chloride Carbon Dioxide BUN Creatinine Glucose POC Glucose (mg/dL) Plasma Lactic Acid Omar 5.5 H* 4.8 H* 3.7 H* Calcium Phosphorus Magnesium Iron TIBC Transferrin Ferritin AST ALT Alkaline Phosphatase Total Protein Albumin Amylase Urine Appearance Urine Protein Urine Glucose (UA) Urine Blood Urine Bilirubin Ur Leukocyte Esterase Urine WBC Urine Bacteria 09/24/24 09/24/24 09/25/24 09:41 09:41 06:27 WBC 17.4 H 16.0 H RBC 2.61 L 2.45 L Hgb 8.8 L 8.4 L Hct 27.0 L 25.5 L MCV 103.5 H 104.2 H MCH RDW 18.0 H 17.7 H Plt Count Neutrophils # 13.9 H Neutrophils # (Manual) Lymphocytes # Sodium 133 L Potassium 3.2 L Chloride Carbon Dioxide 33 H BUN 24 H Creatinine 3.90 H Glucose POC Glucose (mg/dL) Plasma Lactic Acid Omar Calcium 8.0 L Phosphorus Magnesium Iron TIBC Transferrin Ferritin AST 170 H ALT 62 H Alkaline Phosphatase 315 H Total Protein 4.2 L Albumin 1.5 L Amylase Urine Appearance Urine Protein Urine Glucose (UA) Urine Blood Urine Bilirubin Ur Leukocyte Esterase Urine WBC Urine Bacteria 09/25/24 09/25/24 09/26/24 06:27 23:54 05:55 WBC RBC Hgb Hct MCV MCH RDW Plt Count Neutrophils # Neutrophils # (Manual) Lymphocytes # Sodium 131 L Potassium 2.8 L Chloride Carbon Dioxide 32 H BUN 22 H Creatinine 3.57 H Glucose POC Glucose (mg/dL) 142 H 125 H Plasma Lactic Acid Omar Calcium 7.8 L Phosphorus Magnesium Iron TIBC Transferrin Ferritin AST ALT Alkaline Phosphatase Total Protein Albumin Amylase Urine Appearance Urine Protein Urine Glucose (UA) Urine Blood Urine Bilirubin Ur Leukocyte Esterase Urine WBC Urine Bacteria 09/26/24 09/26/24 09/26/24 11:21 11:35 11:35 WBC 16.8 H RBC 2.49 L Hgb 8.4 L Hct 25.7 L MCV 103.3 H MCH RDW 17.5 H Plt Count Neutrophils # Neutrophils # (Manual) Lymphocytes # Sodium 129 L Potassium 3.4 L Chloride 97 L Carbon Dioxide 33 H BUN 21 H Creatinine 3.30 H Glucose 110 H POC Glucose (mg/dL) 125 H Plasma Lactic Acid Omar Calcium 8.0 L Phosphorus 1.9 L Magnesium Iron TIBC Transferrin Ferritin AST ALT Alkaline Phosphatase Total Protein Albumin Amylase Urine Appearance Urine Protein Urine Glucose (UA) Urine Blood Urine Bilirubin Ur Leukocyte Esterase Urine WBC Urine Bacteria 09/27/24 09/27/24 09/27/24 00:19 05:56 05:56 WBC 14.5 H RBC 2.64 L Hgb 8.6 L Hct 27.0 L MCV 102.3 H MCH RDW 17.3 H Plt Count Neutrophils # 12.0 H Neutrophils # (Manual) Lymphocytes # 0.8 L Sodium 130 L Potassium 2.8 L Chloride 96 L Carbon Dioxide 31 H BUN 20 H Creatinine 3.04 H Glucose 116 H POC Glucose (mg/dL) 114 H Plasma Lactic Acid Omar Calcium 7.7 L Phosphorus 2.4 L Magnesium Iron TIBC Transferrin Ferritin AST ALT Alkaline Phosphatase Total Protein Albumin Amylase Urine Appearance Urine Protein Urine Glucose (UA) Urine Blood Urine Bilirubin Ur Leukocyte Esterase Urine WBC Urine Bacteria 09/27/24 09/27/24 09/27/24 05:56 06:01 18:04 WBC RBC Hgb Hct MCV MCH RDW Plt Count Neutrophils # Neutrophils # (Manual) Lymphocytes # Sodium Potassium Chloride Carbon Dioxide BUN Creatinine Glucose POC Glucose (mg/dL) 130 H 127 H Plasma Lactic Acid Omar Calcium Phosphorus Magnesium Iron 18 L TIBC 66 L Transferrin 47.0 L Ferritin 2655.0 H AST ALT Alkaline Phosphatase Total Protein Albumin Amylase Urine Appearance Urine Protein Urine Glucose (UA) Urine Blood Urine Bilirubin Ur Leukocyte Esterase Urine WBC Urine Bacteria 09/28/24 09/28/24 09/29/24 06:56 16:55 05:59 WBC RBC Hgb Hct MCV MCH RDW Plt Count Neutrophils # Neutrophils # (Manual) Lymphocytes # Sodium 130 L Potassium Chloride 94 L Carbon Dioxide 35 H BUN 23 H Creatinine 3.07 H Glucose POC Glucose (mg/dL) 134 H 132 H Plasma Lactic Acid Omar Calcium 8.0 L Phosphorus Magnesium 1.5 L Iron TIBC Transferrin Ferritin AST ALT Alkaline Phosphatase Total Protein Albumin Amylase Urine Appearance Urine Protein Urine Glucose (UA) Urine Blood Urine Bilirubin Ur Leukocyte Esterase Urine WBC Urine Bacteria 09/29/24 09/29/24 09/30/24 07:13 16:30 00:17 WBC RBC Hgb Hct MCV MCH RDW Plt Count Neutrophils # Neutrophils # (Manual) Lymphocytes # Sodium 127 L Potassium Chloride 94 L Carbon Dioxide 33 H BUN 26 H Creatinine 2.84 H Glucose POC Glucose (mg/dL) 123 H 114 H Plasma Lactic Acid Omar Calcium 8.2 L Phosphorus Magnesium Iron TIBC Transferrin Ferritin AST ALT Alkaline Phosphatase Total Protein Albumin Amylase Urine Appearance Urine Protein Urine Glucose (UA) Urine Blood Urine Bilirubin Ur Leukocyte Esterase Urine WBC Urine Bacteria 09/30/24 06:13 WBC RBC Hgb Hct MCV MCH RDW Plt Count Neutrophils # Neutrophils # (Manual) Lymphocytes # Sodium Potassium Chloride Carbon Dioxide BUN Creatinine Glucose POC Glucose (mg/dL) 125 H Plasma Lactic Acid Omar Calcium Phosphorus Magnesium Iron TIBC Transferrin Ferritin AST ALT Alkaline Phosphatase Total Protein Albumin Amylase Urine Appearance Urine Protein Urine Glucose (UA) Urine Blood Urine Bilirubin Ur Leukocyte Esterase Urine WBC Urine Bacteria Assessment and Plan Assessment: Ms. Paiz is an 79-year-old female with history of end-stage renal disease as well as multiple medical core mobilities was admitted on September 21 with weakness and pain. She is not eating well and has a current NG tube placed. 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 She has a history of declining mental status over the past year despite despite multiple hospitalizations with exacerbations of mental status abnormalities. Taken within normal lab values for vitamin B12, thyroid-stimulating hormone, and ammonia, I believe the patient has a likely diagnosis of dementia possibly of the Alzheimer's type, though this diagnosis is difficult to achieve in the setting of hospitalization where she is likely delirious as well. Plan: 1. I would tentatively diagnose this patient with dementia likely of Alzheimer's type. Hopefully this will assist with placement in a hospice situation. 2. The patient has also had extremely poor oral intake for some weeks and is currently getting fed with a nasogastric tube. Family is unwilling to pursue gastrostomy, in which case I would believe the patient would not be able to achieve significant nutrition on her own at this time. Failure of adequate nutrition will be likely to precipitate a somewhat rapid demise. 3. I have given the my phone number to give to his daughter, and will speak with her later today and provide further information and update on her condition and diagnosis. 4. Neurology will continue to follow the patient in house and see her again tomorrow to make further recommendations if needed. Thank you for this consult. Time with Patient: Less than 30
--- NOTE | 2024-09-30 11:36 | P.PN ---
Subjective Patient is seen in follow-up for end-stage renal disease. She is maintained on peritoneal dialysis. Now on pured diet. Also receiving tube feeds. Met with hospice yesterday. Vital signs are stable. General: No acute distress. HEENT: NG tube noted. LUNGS: No audible rhonchi or wheezes. HEART: Rate and Rhythm are regular. ABDOMEN: Nontender. EXTREMITITES: 1+ edema. Objective - Vital Signs Vital signs: Vital Signs Temp 97.8 F 09/30/24 08:15 Pulse 109 H 09/30/24 10:35 Resp 16 09/30/24 10:35 BP 116/77 09/30/24 10:35 Pulse Ox 97 09/30/24 10:35 FiO2 Intake & Output 09/29/24 09/30/24 09/30/24 18:59 06:59 18:59 Intake Total 240 279 Balance 240 279 Weight 50 kg 50 kg Intake: Oral 240 Tube Feeding 279 Other: Voiding Method Diaper Diaper CAPD CAPD # Bowel Movements 2 - Labs CBC & Chem 7: 09/27/24 05:56 09/29/24 07:13 Labs: Abnormal Lab Results - Last 24 Hours (Table) 09/29/24 09/30/24 09/30/24 Range/Units 16:30 00:17 06:13 POC Glucose (mg/dL) 123 H 114 H 125 H (70-110) mg/dL Assessment and Plan Plan: Assessment: 1. End-stage renal disease maintained on peritoneal dialysis. 2. Volume overload. Improving with ultrafiltration. 3. Hypokalemia from poor intake. Replaced. 4. Hypervolemic hyponatremia. 5. Dysphagia. Passed swallow study September 27, 2024. Now on pured diet. Still receiving tube feeds. 6. Coronary artery disease. 7. Klebsiella UTI on antibiotics. No evidence of peritonitis. 8. Hypomagnesemia from poor intake. On oral magnesium oxide. Improved. Plan: Maintain PD exchanges with 2.5% dextrose solution. Encouraged protein intake. Maintain tube feeds. Case discussed with patient and family. Hospice evaluation today. Discussed high risk of infection, including peritonitis, if PEG tube placed while doing peritoneal dialysis. Transitioning to hemodialysis was also discussed. Patient is a poor candidate for hemodialysis. Family also reluctant to do hemodialysis. At this point they wish to continue peritoneal dialysis at home. Nutrition with peritoneal dialysis will also be considered. Prognosis guarded.
[2024-09-30 11:48] LABS: Glucose,Whole Blood 128 mg/dL (70-110)
--- NOTE | 2024-09-30 12:44 | P.PN ---
Subjective Progress Note Date: 09/30/24 SURGICAL PROGRESS NOTE CHIEF COMPLAINT: Gastrostomy tube evaluation HISTORY OF PRESENT ILLNESS: The patient is a 79-year-old female presents with urinary tract infection, intractable nausea and vomiting, unintentional weight loss, underweight BMI 13.3 include end-stage renal disease on dialysis. Patient lying in bed comfortably. She does have tube feeds running. Daughter is at bedside. At this time daughter stating that she does not want to proceed with PEG tube placement they have another hospice meeting scheduled today. PHYSICAL EXAM: VITAL SIGNS: Reviewed. GENERAL: in no acute distress. ABDOMEN: Soft. Nondistended. Nontender. ASSESSMENT: 1. Aspiration per swallow study. Repeat MBS showed no aspiration 2. Intractable nausea and vomiting 3. Severe protein malnutrition 4. Underweight, BMI 13.3 5. End-stage renal disease peritoneal dialysis dependent 6. Liver cirrhosis 7. Urinary tract infection 8. Hyponatremia 9. Hypokalemia PLAN: -Daughter has declined PEG tube placement. They have a another hospice meeting today. Physician Gasoline Power Shovel Operator note has been reviewed by physician. Signing provider agrees with the documented findings, assessment, and plan of care. I have personally seen and examined the patient, reviewed the EMERGENCY MANAGEMENT DIRECTOR /PAs history, exam and MDM and agree with the assessment and plan as written. Based on total visit time, I have performed more than 50% of the visit. As above: Patient confused today. Tolerating tube feeds. Family apparently have decided to go home with hospice tomorrow. Will sign off. Please reconsult if needed. Objective - Vital Signs Vital signs: Vital Signs Temp 97.8 F 09/30/24 08:15 Pulse 109 H 09/30/24 10:35 Resp 16 09/30/24 10:35 BP 116/77 09/30/24 10:35 Pulse Ox 97 09/30/24 10:35 FiO2 Intake & Output 09/29/24 09/30/24 09/30/24 18:59 06:59 18:59 Intake Total 240 279 Balance 240 279 Weight 50 kg 50 kg Intake: Oral 240 Tube Feeding 279 Other: Voiding Method Diaper Diaper CAPD CAPD # Bowel Movements 2 - Labs CBC & Chem 7: 09/27/24 05:56 09/29/24 07:13 Labs: Abnormal Lab Results - Last 24 Hours (Table) 09/29/24 09/30/24 09/30/24 Range/Units 16:30 00:17 06:13 POC Glucose (mg/dL) 123 H 114 H 125 H (70-110) mg/dL 09/30/24 Range/Units 11:45 POC Glucose (mg/dL) 128 H (70-110) mg/dL
[2024-09-30] MEDS: DARBEPOETIN ALFA 40 MCG/0.4 ML SYRINGE SQ SCH (13:05)
--- NOTE | 2024-09-30 13:12 | P.PN ---
Subjective Progress Note Date: 09/30/24 Hospital course Patient is a 79-year-old female with a past medical history of end-stage renal d isease on peritoneal dialysis, chronic systolic heart failure, hypertension, hyperlipidemia, coronary artery disease status post stent placement who presents to the ED with weakness and pain. Patient is a poor historian. Per daughter 2 weeks ago patient had a fall and since then has been declining. Daughter states that patient has been eating and drinking less is not able to swallow her potassium pills. Patient has also been getting more confused. Patient prior to the fall was able to complete all her daily activities. Per daughter as baseline patient can walk around with minimal assistance with just holding the hand of her . She only requires some assistance with putting on her clothes. Now patient can barely stand up and requires two-person assistance. When I asked the patient where she has pain she touched her right lower abdomen. In the ED WBC 12.7, potassium 2.5, lactic acid 4.0, albumin 1.9, UA showed large leukocyte esterase and [address] abdomen pelvis showed nodular contour to the liver suggestive of hepatic cirrhosis with ascites. Patient also found to have left superior and inferior pubic rami fractures with mild displacement. Patient was referred to the medicine service for admission. Nephrology was consulted for peritoneal dialysis. Infectious disease was consulted due to history of multiple allergies as well as drug-resistant bacteria. Neurology was consulted due to worsening mental status. Patient's lactic acid was increasing so pulmonology was consulted for septic shock. Pulmonology recommended to resuscitate the patient. Patient given boluses of fluids. Her lactic acid then started to trend down. Patient's urine culture was positive for klebsiella ornithinolgtica. Patient currently on meropenem. Infectious disease following and managing antibiotics. Mental status is not improving. Patient failed swallow eval multiple times. Per nurse was unsuccessful placing NG tube. Patient had Dobbhoff placed by ICU nurse. Patient tolerating tube feeds. Surgery consulted for PEG tube. was discussed with his son and daughter as well as other physicians and the family about PEG tube placement. Currently discussing further goals of care. Hospice consulted for informational visit. Subjective Patient seen and examined at bedside. No acute events overnight. Sitter at bedside. Physical exam General examination -elderly frail lady, ill-appearing, AO x 3 Heart - + S1S2 no murmurs Lungs -diminished breath sounds bilaterally Abdomen soft NT ND +ve BS Extremities - bilateral 3-4+ edema [employer] -patient following simple commands. Psych -slightly confused Glucose range between 1 14-1 28 Assessment and plan Had discussions with neurology, patient tentatively diagnosed with Alzheimer's type dementia. Had further discussions with family at bedside along with hospice team. Patient will likely qualify for hospice, plan for discharge home with peritoneal dialysis. Acute toxic metabolic encephalopathy Urinary tract infection with lower abdominal pain Septic shock with elevated lactic acid, resolved Leukocytosis -urine culture positive for klebsiella ornithinolgtica -Blood cultures negative -Peritoneal fluid culture is also negative -Continue with meropenem renally dosed at 1g every 24 hours. Infectious disease on board -Patient had EEG done that showed no epileptiform activity but showed findings consistent with moderate encephalopathy. CT head showed no acute process. Neurology following -use Tylenol as needed for pain -One-to-one sitter Severe protein calorie malnutrition -Dobbhoff tube in place, continue tube feeds -General Surgery reviewed, signed off -Monitor for refeeding syndrome Anemia, blood loss versus acute illness -No signs of bleeding, continue to monitor CBC Generalized weakness PT OT consult ESRD on PD Hypervolemic hyponatremia Hypokalemia -Nephrology on board and managing dialysis -Metabolic acidosis has resolved. Patient now off bicarb drip Liver cirrhosis seen on CT scan Elevated LFTs -Okay for Tylenol up to 3 g daily. -LFTs are stable Hypertension -Blood pressure is on the low side so we will hold off on BP meds Coronary artery disease Status post cardiac stent -Continue with aspirin 81 mg p.o. daily -Hold atorvastatin due to elevated LFTs -Hold off on metoprolol due to low blood pressure. Chronic systolic heart failure with mild hypervolemia -Continue dialysis Mild nondisplaced pelvic fractures -Patient was here in the ED 2 weeks ago and was evaluated by orthopedic surgery who said no surgical intervention. Anxiety and depression -Continue with Prozac 40 mg p.o. daily, Requip 0.25 mg p.o. at bedtime DVT prophylaxis: Hold subcu heparin due to acute blood loss anemia CODE STATUS: DNR/DNI Objective - Vital Signs Vital signs: Vital Signs Temp 97.8 F 09/30/24 08:15 Pulse 115 H 09/30/24 13:03 Resp 16 09/30/24 13:03 BP 105/62 09/30/24 13:03 Pulse Ox 96 12/19/24 13:03 FiO2 Intake & Output 09/29/24 09/30/24 09/30/24 18:59 06:59 18:59 Intake Total 240 279 Balance 240 279 Weight 50 kg 50 kg Intake: Oral 240 Tube Feeding 279 Other: Voiding Method Diaper Diaper CAPD CAPD # Bowel Movements 2 - Labs CBC & Chem 7: 09/27/24 05:56 09/29/24 07:13 Labs: Abnormal Lab Results - Last 24 Hours (Table) 09/29/24 09/30/24 09/30/24 Range/Units 16:30 00:17 06:13 POC Glucose (mg/dL) 123 H 114 H 125 H (70-110) mg/dL 09/30/24 Range/Units 11:45 POC Glucose (mg/dL) 128 H (70-110) mg/dL
--- NOTE | 2024-09-30 13:26 | P.PN ---
Subjective Progress Note Date: 09/30/24 Principal diagnosis: Reason for follow-up is leukocytosis/UTI/possible peritonitis Patient is a 79-year-old female with a past medical history coronary disease heart failure with reflux hypertension hyperlipidemia osteoarthritis end-stage renal disease on peritoneal dialysis patient has been brought to the hospital concerning for right lower quadrant abdominal pain CT abdominal pelvis did not show any acute abnormality concerning for possible UTI versus PD cath associated peritonitis. On today's evaluation that is 09/30/2024,the patient remains to be afebrile, pa tient is on room air not requiring supplemental oxygen and denies any shortness of breath no chest pain or cough.Patient denies having any nausea or vomiting, no abdominal pain and no diarrhea has been reported. No new lab has been obtained today Objective - Vital Signs Vital signs: Vital Signs Temp 97.8 F 09/30/24 08:15 Pulse 115 H 09/30/24 13:03 Resp 16 09/30/24 13:03 BP 105/62 09/30/24 13:03 Pulse Ox 96 09/30/24 13:03 FiO2 Intake & Output 09/29/24 09/30/24 09/30/24 18:59 06:59 18:59 Intake Total 240 279 Balance 240 279 Weight 50 kg 50 kg Intake: Oral 240 Tube Feeding 279 Other: Voiding Method Diaper Diaper CAPD CAPD # Bowel Movements 2 - Exam GENERAL DESCRIPTION: An elderly female lying in bed in no distress RESPIRATORY SYSTEM: Unlabored breathing , decreased breath sounds at bases HEART: S1 S2 regular rate and rhythm , ABDOMEN: Soft , no tenderness EXTREMITIES: No edema feet - Labs CBC & Chem 7: 09/27/24 05:56 09/29/24 07:13 Labs: Abnormal Lab Results - Last 24 Hours (Table) 09/29/24 09/30/24 09/30/24 Range/Units 16:30 00:17 06:13 POC Glucose (mg/dL) 123 H 114 H 125 H (70-110) mg/dL 09/30/24 Range/Units 11:45 POC Glucose (mg/dL) 128 H (70-110) mg/dL Assessment and Plan (1) Sepsis Current Visit: Yes Status: Acute Code(s): A41.9 - SEPSIS, UNSPECIFIED ORGANISM SNOMED Code(s): 82573716 (2) UTI (urinary tract infection) Current Visit: Yes Status: Acute Code(s): N39.0 - URINARY TRACT INFECTION, SITE NOT SPECIFIED SNOMED Code(s): 32558706 (3) Allergy to multiple antibiotics Current Visit: No Status: Acute Code(s): Z88.1 - ALLERGY STATUS TO OTHER ANTIBIOTIC AGENTS SNOMED Code(s): 240322516 Plan: 1patient presented to hospital with abdominal pain to the right lower quadrant area in this patient who did have a history of end-stage disease on peritoneal dialysis with a question of PD catheter associated peritonitis versus UTI the patient still makes urine he did have significantly positive UA and urine cultures came back positive with Klebsiella, peritoneal culture negative 2patient with multiple antibiotic ALLERGIES that would limit the number of antibiotic safe to use 3-patient is afebrile, the patient urine is positive for Klebsiella that is not an ESBL however the patient did have multiple antibiotic allergies including to cephalexin family was not clear about the type of reaction 4patient has received adequate meropenem while inpatient and will not need an antibiotic on discharge Family the bedside question answered Dictation was produced using [employer] dictation software. please excuse any grammatical, word or spelling errors. Time with Patient: Less than 30
[2024-09-30 16:46] LABS: Glucose,Whole Blood 102 mg/dL (70-110)
[2024-09-30 20:08] LABS: Glucose,Whole Blood 115 mg/dL (70-110)
[2024-10-01] LABS: Glucose,Whole Blood 133 mg/dL (70-110)
[2024-10-01 04:05] VITALS: TEMP 97.6
[2024-10-01 06:01] LABS: Glucose,Whole Blood 123 mg/dL (70-110)
[2024-10-01 08:35] LABS: African American GFR (CKD) 16 (>60 ml/min/1.73 sqM); Anion Gap 0 mmol/L; Blood Urea Nitrogen 30 mg/dL (7-17); Calcium 8.4 mg/dL (8.4-10.2); Carbon Dioxide 34 mmol/L (22-30); Chloride 95 mmol/L (98-107); Glucose 92 mg/dL (74-99); Magnesium 2.2 mg/dL (1.6-2.3); Non-African American GFR(CKD) 14 (>60 ml/min/1.73 sqM); Phosphorus 2.9 mg/dL (2.5-4.5); Potassium 2.9 mmol/L (3.5-5.1); Sodium 129 mmol/L (137-145)
[2024-10-01 08:56] VITALS: BP 114/69; PULSE 116; RESP 14
--- NOTE | 2024-10-01 11:37 | P.PN ---
Subjective Patient is seen in follow-up for end-stage renal disease. She is maintained on peritoneal dialysis. Now on pured diet. Also receiving tube feeds. Going home on hospice. Family present at bedside. Vital signs are stable. General: No acute distress. HEENT: NG tube noted. LUNGS: No audible rhonchi or wheezes. HEART: Rate and Rhythm are regular. ABDOMEN: Nontender. EXTREMITITES: 1+ edema. Objective - Vital Signs Vital signs: Vital Signs Temp 97.6 F 10/01/24 04:00 Pulse 116 H 10/01/24 08:53 Resp 14 10/01/24 08:53 BP 114/69 10/01/24 08:53 Pulse Ox 98 10/01/24 08:58 FiO2 Intake & Output 09/30/24 10/01/24 10/01/24 18:59 06:59 18:59 Intake Total 279 Balance 279 Weight 56.5 kg Intake: Tube Feeding 279 Other: Voiding Method Diaper Diaper CAPD CAPD # Bowel Movements 3 - Labs CBC & Chem 7: 09/27/24 05:56 10/01/24 08:00 Labs: Abnormal Lab Results - Last 24 Hours (Table) 09/30/24 09/30/24 09/30/24 Range/Units 11:45 20:06 23:58 Sodium (137-145) mmol/L Potassium (3.5-5.1) mmol/L Chloride (98-107) mmol/L Carbon Dioxide (22-30) mmol/L BUN (7-17) mg/dL Creatinine (0.52-1.04) mg/dL POC Glucose (mg/dL) 128 H 115 H 133 H (70-110) mg/dL 10/01/24 10/01/24 Range/Units 06:00 08:00 Sodium 129 L (137-145) mmol/L Potassium 2.9 L (3.5-5.1) mmol/L Chloride 95 L (98-107) mmol/L Carbon Dioxide 34 H (22-30) mmol/L BUN 30 H (7-17) mg/dL Creatinine 2.96 H (0.52-1.04) mg/dL POC Glucose (mg/dL) 123 H (70-110) mg/dL Assessment and Plan Plan: Assessment: 1. End-stage renal disease maintained on peritoneal dialysis. 2. Volume overload. Improving with ultrafiltration. 3. Hypokalemia from poor intake. 4. Hypervolemic hyponatremia. 5. Dysphagia. Passed swallow study September 27, 2024. Now on pured diet. Still receiving tube feeds. 6. Coronary artery disease. 7. Klebsiella UTI on antibiotics. No evidence of peritonitis. 8. Hypomagnesemia from poor intake. On oral magnesium oxide. Improved. Plan: Maintain PD exchanges with 2.5% dextrose solution. To alternate 1.5% and 2.5% dextrose solution upon discharge as edema is improved. Encouraged protein intake. Maintain tube feeds. Case discussed with patient and family. Plan is to go home on hospice and will continue with peritoneal dialysis for now. Will take potassium and magnesium supplementation as able to tolerate.
[2024-10-01] MEDS ORDERED: POTASSIUM CHLORIDE 20 MEQ in WATER FOR INJECTION 1 100ML.BAG IVPB SCH (11:42)
[2024-10-01] MEDS: ALPRAZolam 0.5 MG TAB PO STA (12:26)
--- NOTE | 2024-10-01 13:18 | P.DS ---
Providers Date of admission: 09/21/24 16:57 Expected date of discharge: 10/01/24 Attending physician: Sabrina Wheatley MD Consults: 09/21/24 16:51 Consult Physician Urgent Consulting Provider: Julee Whatley Consult Reason/Comments: Peritoneal dialysis, hypokalemia Do you want consulting provider notified?: Yes 09/21/24 17:25 Consult Physician Routine Consulting Provider: Hanh Marin Consult Reason/Comments: history of ESBL and has multiple allergies Do you want consulting provider notified?: Yes 09/22/24 08:26 Consult Physician Urgent Consulting Provider: Cortes Rutledge Consult Reason/Comments: septic shock Do you want consulting provider notified?: Yes 09/23/24 08:12 Consult Physician Routine Consulting Provider: Homero Rutledge Consult Reason/Comments: altered mental status Do you want consulting provider notified?: Yes 09/27/24 18:08 Consult Physician Routine Consulting Provider: Zachery Morgan Consult Reason/Comments: Acute rehab, patient on peritoneal dialysis Do you want consulting provider notified?: Yes Primary care physician: [facility] Course: Discharge Diagnosis: Acute toxic metabolic encephalopathy Urinary tract infection with lower abdominal pain Septic shock with elevated lactic acid, resolved Leukocytosis Severe protein calorie malnutrition Anemia, blood loss versus acute illness Generalized weakness ESRD on PD Hypervolemic hyponatremia Hypokalemia Liver cirrhosis seen on CT scan Elevated LFTs Hypertension Coronary artery disease Status post cardiac stent Chronic systolic heart failure with mild hypervolemia Mild nondisplaced pelvic fractures Anxiety and depression Hospital Course: Patient is a 79-year-old female with a past medical history of end-stage renal disease on peritoneal dialysis, chronic systolic heart failure, hypertension, hyperlipidemia, coronary artery disease status post stent placement who presents to the ED with weakness and pain. Patient is a poor historian. Per daughter 2 weeks ago patient had a fall and since then has been declining. Daughter states that patient has been eating and drinking less is not able to swallow her potassium pills. Patient has also been getting more confused. Patient prior to the fall was able to complete all her daily activities. Per daughter as baseline patient can walk around with minimal assistance with just holding the hand of her . She only requires some assistance with putting on her clothes. Now patient can barely stand up and requires two-person assistance. When I asked the patient where she has pain she touched her right lower abdomen. In the ED WBC 12.7, potassium 2.5, lactic acid 4.0, albumin 1.9, UA showed large leukocyte esterase and [address] abdomen pelvis showed nodular contour to the liver suggestive of hepatic cirrhosis with ascites. Patient also found to have left superior and inferior pubic rami fractures with mild displacement. Patient was referred to the medicine service for admission. Nephrology was consulted for peritoneal dialysis. Infectious disease was consulted due to history of multiple allergies as well as drug-resistant bacteria. Neurology was consulted due to worsening mental status. Patient's lactic acid was increasing so pulmonology was consulted for septic shock. Pulmonology recommended to resuscitate the patient. Patient given boluses of fluids. Her lactic acid then started to trend down. Patient's urine culture was positive for klebsiella ornithinolgtica. Patient currently on meropenem. Infectious disease following and managing antibiotics. Mental status is not improving. Patient failed swallow eval multiple times. Per nurse was unsuccessful placing NG tube. Patient had Dobbhoff placed by ICU nurse. Patient tolerating tube feeds. Surgery consulted for PEG tube. was discussed with his son and daughter as well as other physicians and the family about PEG tube placement. After further goals of care discussion, patient now being discharged home with hospice. Patient seen and examined at bedside. Vital signs reviewed and stable. General examination -elderly frail lady, ill-appearing, AO x 3 Heart - + S1S2 no murmurs Lungs -diminished breath sounds bilaterally Abdomen soft NT ND +ve BS Extremities - bilateral 3-4+ edema [employer] -patient following simple commands. Psych -slightly confused A total of 36 minutes of time were spent preparing this complex discharge summary. Patient was discharged on 10/01/2024 at 1108. Plan - Discharge Summary Discharge Rx Participant: Yes New Discharge Prescriptions: Continue Famotidine [Pepcid] 20 mg PO DAILY Metoprolol Succinate [Toprol XL] 50 mg PO HS FLUoxetine HCL 40 mg PO DAILY Pantoprazole [Protonix] 40 mg PO BID rOPINIRole HCL [Requip] 0.25 mg PO HS Metoclopramide [Reglan] 5 mg PO AC-TID Lubiprostone [Amitiza] 8 mcg PO BID Ondansetron Odt [Zofran ODT] 4 mg PO Q6HR PRN PRN Reason: Nausea Discontinued Atorvastatin [Lipitor] 40 mg PO DAILY calcitrioL 0.25 mcg PO MOTH Aspirin EC [Ecotrin Low Dose] 81 mg PO DAILY Potassium Chloride ER [K-Dur 10] 10 meq PO DAILY Gentamicin 0.1% Cream 1 applic TOPICAL DAILY Calcium Acetate [PhosLo] 1,334 mg PO TID-W/MEALS Cholecalciferol [Vitamin D3 (25 Mcg = 1000 Iu)] 25 mcg PO DAILY Magnesium Oxide [Mag-Ox] 400 mg PO MOTUWETHFR@2100 Folic Acid/Vit B Complex and C [Nephro-Trang Tablet] 0.8 mg PO DAILY Calcium Acetate [Phoslo] 667 mg PO DAILY PRN PRN Reason: W/SNACK Discharge Medication List Famotidine [Pepcid] 20 mg PO DAILY 02/26/20 [History] Metoprolol Succinate [Toprol XL] 50 mg PO HS 01/03/23 [History] FLUoxetine HCL 40 mg PO DAILY 10/23/23 [History] Pantoprazole [Protonix] 40 mg PO BID 10/23/23 [History] Ondansetron Odt [Zofran ODT] 4 mg PO Q6HR PRN 04/11/24 [History] Lubiprostone [Amitiza] 8 mcg PO BID 09/21/24 [History] Metoclopramide [Reglan] 5 mg PO AC-TID 09/21/24 [History] rOPINIRole HCL [Requip] 0.25 mg PO HS 09/21/24 [History] Follow up Appointment(s)/Referral(s): [facility]-STAFF] - 1 Week Discharge Disposition: HOME WITH HOSPICE
[2024-10-01] MEDS: POTASSIUM BICARBONATE/CIT AC 20 MEQ TABLET.EFF PO SCH (13:51)
--- NOTE | 2024-10-06 13:21 | P.PN ---
Subjective Progress Note Date: 10/01/24 Principal diagnosis: Reason for follow-up is leukocytosis/UTI/possible peritonitis Patient is a 79-year-old female with a past medical history coronary disease heart failure with reflux hypertension hyperlipidemia osteoarthritis end-stage renal disease on peritoneal dialysis patient has been brought to the hospital concerning for right lower quadrant abdominal pain CT abdominal pelvis did not show any acute abnormality concerning for possible UTI versus PD cath associated peritonitis. On today's evaluation that is 10/01/2024, the patient continues to be afebrile, the patient is on room air and breathing comfortably, the Pt denies having any chest pain or cough, the patient denies abdominal pain no vomiting or diarrhea has been reported. Patient did have a creatinine 2.96 Objective - Vital Signs Vital signs: Vital Signs Temp 97.6 F 10/01/24 04:00 Pulse 116 H 10/01/24 08:53 Resp 14 10/01/24 08:53 BP 114/69 10/01/24 08:53 Pulse Ox 98 10/01/24 08:58 FiO2 Intake & Output 09/30/24 10/01/24 10/01/24 18:59 06:59 18:59 Intake Total 279 Balance 279 Weight 56.5 kg Intake: Tube Feeding 279 Other: Voiding Method Diaper Diaper CAPD CAPD # Bowel Movements 3 - Exam GENERAL DESCRIPTION: An elderly female lying in bed in no distress RESPIRATORY SYSTEM: Unlabored breathing , decreased breath sounds at bases HEART: S1 S2 regular rate and rhythm , ABDOMEN: Soft , no tenderness EXTREMITIES: No edema feet - Labs CBC & Chem 7: 09/27/24 05:56 10/01/24 08:00 Labs: Abnormal Lab Results - Last 24 Hours (Table) 09/30/24 09/30/24 09/30/24 Range/Units 11:45 20:06 23:58 Sodium (137-145) mmol/L Potassium (3.5-5.1) mmol/L Chloride (98-107) mmol/L Carbon Dioxide (22-30) mmol/L BUN (7-17) mg/dL Creatinine (0.52-1.04) mg/dL POC Glucose (mg/dL) 128 H 115 H 133 H (70-110) mg/dL 10/01/24 10/01/24 Range/Units 06:00 08:00 Sodium 129 L (137-145) mmol/L Potassium 2.9 L (3.5-5.1) mmol/L Chloride 95 L (98-107) mmol/L Carbon Dioxide 34 H (22-30) mmol/L BUN 30 H (7-17) mg/dL Creatinine 2.96 H (0.52-1.04) mg/dL POC Glucose (mg/dL) 123 H (70-110) mg/dL Assessment and Plan (1) Sepsis Status: Acute Code(s): A41.9 - SEPSIS, UNSPECIFIED ORGANISM SNOMED Code(s): 91550542 (2) UTI (urinary tract infection) Status: Acute Code(s): N39.0 - URINARY TRACT INFECTION, SITE NOT SPECIFIED SNOMED Code(s): 02873332 (3) Allergy to multiple antibiotics Status: Acute Code(s): Z88.1 - ALLERGY STATUS TO OTHER ANTIBIOTIC AGENTS SNOMED Code(s): 185433596 Plan: 1patient presented to hospital with abdominal pain to the right lower quadrant area in this patient who did have a history of end-stage disease on peritoneal dialysis with a question of PD catheter associated peritonitis versus UTI the p atient still makes urine he did have significantly positive UA and urine cultures came back positive with Klebsiella, peritoneal culture negative 2patient with multiple antibiotic ALLERGIES that would limit the number of antibiotic safe to use 3-patient is afebrile, the patient urine is positive for Klebsiella that is not an ESBL however the patient did have multiple antibiotic allergies including to cephalexin family was not clear about the type of reaction 4patient has received adequate meropenem for underlying UTI during this hospital admission and no need for antibiotics on discharge Dictation was produced using [employer] dictation software. please excuse any grammatical, word or spelling errors. Time with Patient: Less than 30
== END 2024-10-01 14:20 | disposition hospice, home (50) | DRG 871 ==
LOC: EC 12:48 → 3SCARD 16:57
PROVIDERS: ADMIT Family Medicine; ATTEND Family Medicine
PROC: 4A10X4Z Monitoring of Central Nervous Electrical Activity, External Approach (ICD-10-PCS; 2024-09-23)
PROC: F00ZHZZ Bedside Swallowing and Oral Function Assessment (ICD-10-PCS; principal; 2024-09-27)
PROC: 0DH63UZ Insertion of Feeding Device into Stomach, Percutaneous Approach (ICD-10-PCS; 2024-09-27)
DX: A41.59 Other Gram-negative sepsis (principal); E43 Unspecified severe protein-calorie malnutrition; G92.8 Other toxic encephalopathy; R65.21 Severe sepsis with septic shock; N18.6 End stage renal disease; S32.512A Fracture of superior rim of left pubis, initial encounter for closed fracture; S32.592A Other specified fracture of left pubis, initial encounter for closed fracture; E87.20 Acidosis, unspecified; I13.2 Hypertensive heart and chronic kidney disease with heart failure and with stage 5 chronic kidney disease, or end stage renal disease; I50.22 Chronic systolic (congestive) heart failure; N39.0 Urinary tract infection, site not specified; D62 Acute posthemorrhagic anemia; E87.1 Hypo-osmolality and hyponatremia; Z68.1 Body mass index [BMI] 19.9 or less, adult; G72.81 Critical illness myopathy; R18.8 Other ascites; A41.9 Sepsis, unspecified organism; Z99.2 Dependence on renal dialysis; E78.5 Hyperlipidemia, unspecified; I25.5 Ischemic cardiomyopathy; K74.60 Unspecified cirrhosis of liver; E86.0 Dehydration; E87.6 Hypokalemia; F41.9 Anxiety disorder, unspecified; D63.1 Anemia in chronic kidney disease; E83.39 Other disorders of phosphorus metabolism; B96.1 Klebsiella pneumoniae [K. pneumoniae] as the cause of diseases classified elsewhere; E83.42 Hypomagnesemia; E86.1 Hypovolemia; F32.A Depression, unspecified; G30.9 Alzheimer's disease, unspecified; I25.10 Atherosclerotic heart disease of native coronary artery without angina pectoris; I25.2 Old myocardial infarction; K21.9 Gastro-esophageal reflux disease without esophagitis; Z51.5 Encounter for palliative care; K57.30 Diverticulosis of large intestine without perforation or abscess without bleeding; M19.90 Unspecified osteoarthritis, unspecified site; M81.0 Age-related osteoporosis without current pathological fracture; M89.8X9 Other specified disorders of bone, unspecified site; R13.10 Dysphagia, unspecified; W19.XXXA Unspecified fall, initial encounter; Y92.009 Unspecified place in unspecified non-institutional (private) residence as the place of occurrence of the external cause; Z66 Do not resuscitate; Z78.1 Physical restraint status; Z79.82 Long term (current) use of aspirin; Z79.899 Other long term (current) drug therapy; Z86.19 Personal history of other infectious and parasitic diseases; Z87.891 Personal history of nicotine dependence; Z88.1 Allergy status to other antibiotic agents; Z91.81 History of falling; Z95.5 Presence of coronary angioplasty implant and graft; Z98.1 Arthrodesis status; Z98.41 Cataract extraction status, right eye; Z98.42 Cataract extraction status, left eye; Z96.1 Presence of intraocular lens; Z87.19 Personal history of other diseases of the digestive system
CPT/HCPCS: 36415; 70450; 71045; 74176; 74230; 80048; 80053; 81001; 82140; 82150; 82607; 82728; 82746; 83540; 83550; 83605; 83690; 83735; 84100; 84132; 84425; 84443; 85025; 85027; 87040; 87070; 87077; 87086; 87186; 87205; 89050; 93005; 94760; 95816; 96361; 96365; 96366; 96367; 96368; 96372; 96375; 99291